=== PATIENT | male | born 1970 | race Caucasian/White ===

== ENCOUNTER → 2019-10-01 13:31 | Outpatient (CLI) | payer OTHER, SELFPAY ==
[2019-10-01 13:40] LABS: Basophils % 0.6 % (0.1-2.0); Eosinophils # 0.2 K/mm3 (0.0-0.4); Eosinophils % 2.5 % (0.1-12.0); Hemoglobin 15.2 g/dL (14.1-18.0); Lymphocytes # 1.5 K/mm3 (0.7-4.5); Lymphocytes % 23.3 % (10-50); Mean Corpuscular HGB Conc 34.5 g/dL (31.8-35.4); Mean Corpuscular Hemoglobin 32.6 pg (27.0-31.2); Mean Corpuscular Volume 94.5 fl (80-94); Mean Platelet Volume 8.8 fl (7.4-10.4); Monocytes # 0.5 K/mm3 (0.1-1.0); Monocytes % 7.7 % (1.7-9.3); Neutrophils # 4.3 K/mm3 (1.8-7.8); Neutrophils % 65.9 % (37.0-80.0); Platelet Count 444 K/mm3 (142-424); Red Blood Count 4.66 M/mm3 (4.60-6.20); Red Cell Distribution Width 13.5 % (11.5-17.5); White Blood Count 6.6 K/mm3 (4.8-10.8)
[2019-10-01 13:51] LABS: Alanine Aminotransferase 28 U/L (12-78); Albumin Level 4.7 g/dl (3.5-5.0); Albumin/Globulin Ratio 1.7 (1.1-1.8); Alkaline Phosphatase 84 U/L (38-126); Anion Gap 18.8 mEq/L (5-15); Aspartate Amino Transferase 31 U/L (17-59); Bilirubin,Total 0.8 mg/dl (0.2-1.3); Blood Urea Nitrogen 12 mg/dl (9-20); Calcium 9.6 mg/dl (8.4-10.2); Carbon Dioxide 26 mmol/L (22.0-30.0); Chloride 100 mmol/L (98-107); Estimated Glomerular Filt Rate 79 ml/min (>60); GFR (African American) 96 ML/MIN (>60); Globulin 2.7 g/dL (1.3-3.2); Glucose 160 mg/dl (74-100); Potassium 3.8 mmoL/L (3.5-5.1); Sodium 141 mmol/L (136-145); Total Protein,Serum 7.4 g/dl (6.3-8.2)
[2019-10-01 20:49] LABS: T4 (Thyroxine) 6.5 ug/dl (5.53-11.0)
[2019-10-01 21:03] LABS: Thyroid Stimulating Hormone 1.11 uIU/mL (0.465-4.68)
[2019-10-02 11:12] LABS: Chol/HDL Ratio 4.3 (1-3.5); Cholesterol 191 mg/dl (140-200); HDL Cholesterol 44 mg/dl (40-60); Triglycerides 153 mg/dl (30-150); VLDL Cholesterol 31 mg/dL (0-40)
[2019-10-02 11:19] LABS: Hemoglobin A1C 5.6 % (4.0-6.0)
[2019-10-02 11:23] LABS: Direct LDL Cholesterol 118.34 mg/dL (100-129)
[2019-10-06 09:20] LABS: 1,25 Dihydroxy Vitamin D 68 pg/mL (.); 1,25-Dihydroxy, Vitamin D-2 16 pg/mL (.); 1,25-Dihydroxy, Vitamin D-3 52 pg/mL (.)
== END ==
PROVIDERS: Visit Provider Physician Assistant
DX: R53.83 Other fatigue; E78.5 Hyperlipidemia, unspecified; R73.09 Other abnormal glucose; M25.571 Pain in right ankle and joints of right foot; E67.3 Hypervitaminosis D
CPT/HCPCS: 80053; 80061; 82652; 83036; 84436; 84443; 85025

== ENCOUNTER → 2019-11-26 11:48 | Outpatient (CLI) | payer OTHER, SELFPAY ==
--- NOTE | 2019-11-26 11:54 | XR_ITS ---
PROCEDURE: XR RIBS RT MIN 3V W CXR1V CLINICAL INDICATION: right rib pain Posttraumatic pain COMPARISON: No exams were available for comparison FINDINGS: Frontal view of the chest shows no acute finding. Multiple views of the right ribs are obtained. There is a nondisplaced fracture involving the anterolateral aspect of the right 9th rib. No evidence of pneumothorax. No hemothorax apparent. There is some mild atelectatic change in the left lower lobe. IMPRESSION: Nondisplaced right 9th rib fracture Dictated by: Cruz Hill MD 11/26/2019 12:53 Crzu Hill MD in [facility] 11/26/2019 12:53
== END ==
PROVIDERS: PCP Emergency Medicine; Visit Provider Physician Assistant
DX: R07.81 Pleurodynia (principal)
CPT/HCPCS: 71101

== ENCOUNTER → 2020-03-25 13:57 | Outpatient (CLI) | payer MEDICARE, OTHER, SELFPAY ==
--- NOTE | 2020-03-25 14:01 | XR_ITS ---
PROCEDURE: XR ELBOW LT MIN 3V CLINICAL INDICATION: left elbow pain COMPARISON: No exams were available for comparison FINDINGS: No fracture or dislocation. No lytic or blastic change. There is normal mineralization. The joint spaces are well-preserved. No significant degenerative/arthritic changes. No erosive changes evident. Other findings:None. IMPRESSION: No acute findings. Dictated by: Cruz Hill MD 03/25/2020 14:35 Cruz Hill MD in [facility] 03/25/2020 14:35
== END ==
PROVIDERS: PCP Physician Assistant; Visit Provider Physician Assistant
DX: M25.522 Pain in left elbow (principal)
CPT/HCPCS: 73080

== ENCOUNTER → 2020-10-08 18:03 | Outpatient (CLI) | payer MEDICARE, OTHER, SELFPAY ==
[2020-10-08 19:18] LABS: Basophils # 0.1 K/mm3 (0-0.2); Basophils % 0.7 % (0.1-2.0); Eosinophils # 0.2 K/mm3 (0.0-0.4); Eosinophils % 2.1 % (0.1-12.0); Hematocrit 38.6 % (42.0-52.0); Hemoglobin 12.4 g/dL (14.1-18.0); Lymphocytes # 2.1 K/mm3 (0.7-4.5); Lymphocytes % 26.8 % (10-50); Mean Corpuscular HGB Conc 32.1 g/dL (31.8-35.4); Mean Corpuscular Hemoglobin 31.4 pg (27.0-31.2); Mean Corpuscular Volume 97.8 fl (80-94); Mean Platelet Volume 8.3 fl (7.4-10.4); Monocytes # 0.6 K/mm3 (0.1-1.0); Monocytes % 7.4 % (1.7-9.3); Neutrophils # 4.9 K/mm3 (1.8-7.8); Neutrophils % 63.1 % (37.0-80.0); Platelet Count 496 K/mm3 (142-424); Red Blood Count 3.95 M/mm3 (4.60-6.20); Red Cell Distribution Width 14.7 % (11.5-17.5); White Blood Count 7.7 K/mm3 (4.8-10.8)
[2020-10-08 19:27] LABS: Alanine Aminotransferase 22 U/L (12-78); Albumin Level 4.3 g/dl (3.5-5.0); Albumin/Globulin Ratio 1.7 (1.1-1.8); Alkaline Phosphatase 75 U/L (38-126); Anion Gap 14.6 mEq/L (5-15); Aspartate Amino Transferase 26 U/L (17-59); Bilirubin,Total 0.5 mg/dl (0.2-1.3); Blood Urea Nitrogen 18 mg/dl (9-20); Calcium 9.2 mg/dl (8.4-10.2); Carbon Dioxide 29 mmol/L (22.0-30.0); Chloride 103 mmol/L (98-107); Estimated Glomerular Filt Rate 58 ml/min (>60); GFR (African American) 71 ML/MIN (>60); Globulin 2.5 g/dL (1.3-3.2); Glucose 96 mg/dl (74-100); Potassium 4.6 mmoL/L (3.5-5.1); Sodium 142 mmol/L (136-145); Total Protein,Serum 6.8 g/dl (6.3-8.2)
[2020-10-08 21:05] LABS: Prostate Specific Ag Screen 1.2 ng/ml (0.0-4.0)
[2020-10-10 18:43] LABS: Peripheral Smear Review Scanned Result
== END ==
PROVIDERS: Visit Provider Physician Assistant
DX: R79.89 Other specified abnormal findings of blood chemistry (principal); R30.0 Dysuria; Z12.5 Encounter for screening for malignant neoplasm of prostate
CPT/HCPCS: 80053; 85025; 87086; G0103

== ENCOUNTER → 2020-10-27 17:56 | Outpatient (CLI) | payer MEDICARE, OTHER, SELFPAY ==
[2020-10-27 18:57] LABS: Chloride 103 mmol/L (98-107); Sodium 140 mmol/L (136-145)
[2020-10-27 18:58] LABS: Potassium 3.5 mmoL/L (3.5-5.1)
[2020-10-27 19:01] LABS: Anion Gap 13.5 mEq/L (5-15); Blood Urea Nitrogen 14 mg/dl (9-20); Calcium 9.2 mg/dl (8.4-10.2); Carbon Dioxide 27 mmol/L (22.0-30.0); Estimated Glomerular Filt Rate 64 ml/min (>60); GFR (African American) 78 ML/MIN (>60); Glucose 202 mg/dl (74-100)
[2020-10-27 20:34] LABS: Vitamin B12 262 pg/mL (239-931)
[2020-10-27 20:46] LABS: Folate 9.58 ng/mL
== END ==
PROVIDERS: Visit Provider Physician Assistant
DX: R53.83 Other fatigue (principal); R79.89 Other specified abnormal findings of blood chemistry
CPT/HCPCS: 80048; 82607; 82746

== ENCOUNTER → 2020-11-04 07:36 | Outpatient (CLI) | payer OTHER, SELFPAY ==
--- NOTE | 2020-11-04 07:39 | CT_ITS ---
PROCEDURE: CT ABDOMEN PELVIS WO CON CLINICAL INDICATION: left groin pain Llq pain x several weeks COMPARISON: No exams were available for comparison TECHNIQUE: Axial images obtained with sagittal and coronal reformats. All CT scans at the facility use one or more dose reduction, viz: automated exposure control, ma/kV adjustment per patient size (including targeted exams where dose is matched to indication, i.e. head), or iterative reconstruction technique. FINDINGS: LOWER THORAX: No acute finding ABDOMEN & PELVIS: The liver, spleen, adrenal glands, pancreas, and kidneys have an unremarkable unenhanced CT appearance. No renal or ureteral calculi. No hydronephrosis. No radiopaque gallstones. Solid organ evaluation is limited without IV contrast. No intestinal obstruction or free air. Unremarkable appendix. No pelvic mass or inflammatory change apparent. No evidence diverticulitis. There is a small right inguinal hernia containing fat. There is a small area of increased soft tissue density in the left inguinal area deep to the inguinal canal and may be due to postsurgical changes from prior hernia repair. Please correlate with surgical history. No evidence of left inguinal hernia. There is a tiny umbilical hernia containing fat. Postsurgical changes are present at L3-L4 and L5. IMPRESSION: 1. No acute finding. 2. Small area of increased soft tissue density in the left inguinal region which may be due to postsurgical changes from prior hernia repair. Please correlate with surgical history. 3. Small right inguinal hernia and small umbilical hernia containing fat. 4. Multiple unopacified bowel loops in the abdomen or pelvis which could obscure or mimic pathology. If symptoms persist, consider repeat exam with IV and oral contrast.. Solid organ evaluation limited without IV contrast. Dictated by: Cruz Hill MD 11/05/2020 08:04 Cruz Hill MD in [facility] 11/05/2020 08:04
== END ==
PROVIDERS: PCP Physician Assistant; Visit Provider Physician Assistant
DX: R10.32 Left lower quadrant pain (principal)
CPT/HCPCS: 74176

== ENCOUNTER → 2020-12-24 17:24 | Outpatient (CLI) | payer OTHER, SELFPAY ==
[2020-12-24 18:59] LABS: Basophils % 0.5 % (0.1-2.0); Eosinophils # 0.1 K/mm3 (0.0-0.4); Eosinophils % 1.2 % (0.1-12.0); Hemoglobin 14.7 g/dL (14.1-18.0); Lymphocytes # 1.3 K/mm3 (0.7-4.5); Lymphocytes % 19.5 % (10-50); Mean Corpuscular Hemoglobin 31.8 pg (27.0-31.2); Mean Corpuscular Volume 99.5 fl (80-94); Mean Platelet Volume 7.9 fl (7.4-10.4); Monocytes # 0.4 K/mm3 (0.1-1.0); Monocytes % 5.9 % (1.7-9.3); Neutrophils # 4.9 K/mm3 (1.8-7.8); Neutrophils % 72.8 % (37.0-80.0); Platelet Count 421 K/mm3 (142-424); Red Blood Count 4.62 M/mm3 (4.60-6.20); Red Cell Distribution Width 12.4 % (11.5-17.5); White Blood Count 6.8 K/mm3 (4.8-10.8)
[2020-12-24 19:36] LABS: Alanine Aminotransferase 25 U/L (12-78); Albumin Level 4.3 g/dl (3.5-5.0); Albumin/Globulin Ratio 1.5 (1.1-1.8); Alkaline Phosphatase 78 U/L (38-126); Anion Gap 13.2 mEq/L (5-15); Aspartate Amino Transferase 27 U/L (17-59); Bilirubin,Total 0.5 mg/dl (0.2-1.3); Blood Urea Nitrogen 15 mg/dl (9-20); Calcium 9.4 mg/dl (8.4-10.2); Carbon Dioxide 31 mmol/L (22.0-30.0); Chloride 99 mmol/L (98-107); Chol/HDL Ratio 3.4 (1-3.5); Cholesterol 181 mg/dl (140-200); Estimated Glomerular Filt Rate 54 ml/min (>60); GFR (African American) 65 ML/MIN (>60); Globulin 2.8 g/dL (1.3-3.2); Glucose 102 mg/dl (74-100); HDL Cholesterol 54 mg/dl (40-60); Potassium 4.2 mmoL/L (3.5-5.1); Sodium 139 mmol/L (136-145); Total Protein,Serum 7.1 g/dl (6.3-8.2); Triglycerides 150 mg/dl (30-150); VLDL Cholesterol 30 mg/dL (0-40)
[2020-12-24 19:48] LABS: Direct LDL Cholesterol 94.16 mg/dL (100-129)
[2020-12-24 19:54] LABS: Free T4 (Free Thyroxine) 0.85 ng/dl (0.78-2.19)
[2020-12-24 20:08] LABS: Thyroid Stimulating Hormone 1.32 uIU/mL (0.465-4.68)
[2020-12-24 20:26] LABS: Vitamin B12 342 pg/mL (239-931)
[2020-12-24 20:39] LABS: Hemoglobin A1C 5.7 % (4.0-6.0)
== END ==
PROVIDERS: Visit Provider Physician Assistant
DX: E78.5 Hyperlipidemia, unspecified (principal); R53.83 Other fatigue; E53.8 Deficiency of other specified B group vitamins; R73.09 Other abnormal glucose
CPT/HCPCS: 80053; 80061; 82306; 82607; 83036; 84439; 84443; 85025

== ENCOUNTER 2021-06-13 23:03 | Emergency (ER) | payer MEDICARE, OTHER, SELFPAY ==
[2021-06-13 23:05] VITALS: BP 164/90; PULSE 100; RESP 18; TEMP 37.2; O2SAT 99; BMI 27.0
--- NOTE | 2021-06-13 23:17 | [facility].EDMCLR ---
ED Disposition Clinical Impression: Medical clearance for incarceration Disposition: Home, Self-Care Condition on Discharge: Good Instructions: DI for Substance Use Disorder Additional Instructions: see pcp for follow up Referrals: Cristy Stanley PA [Primary Care Provider] - - Critical Care Critical Care Time: No Attestation: On 06/13/21, the high probability of a clinically significant, sudden or life threatening deterioration of the following system(s) required my full and direct attention, intervention and personal management. The time I documented below is in addition to time spent performing reported procedures but includes the following listed in this critical care notation. Medical Decision Making - Medical Records Medical records reviewed: Yes: I reviewed the patient's medical records. - Matty Inquiry Pt receiving controlled substance: No Vital Signs: 06/13/21 23:05 Temperature 99.0 F Temperature Source Oral Pulse Rate [Right] 100 H Respiratory Rate 18 Blood Pressure [Right Arm] 164/90 H Blood Pressure Mean [Right Arm] 114 02 Sat by Pulse Oximetry 99 Medical Decision Narrative: stable exam at this time Medical Clearance HPI - General Chief complaint: Medical Clearance Stated complaint: medical clearance Time Seen by Provider: 06/13/21 23:18 Mode of Arrival: Ambulatory Source of Information: Patient, Medical Record Limitations: No Limitations Description of Symptoms (Recalled from ER Triage Doc. 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 - pt w/o specific c/o complaint: medical clearance requested Onset (ago): hour(s) Reason for Medical Clearance: intoxication Place: home Alleged Intoxication: Yes Traumatic Symptoms: denies traumatic injury Associated Symptoms: denies other symptoms Treatments Prior to Arrival: none Home medications: Home Medications Medication Instructions Recorded Confirmed naltrexone microspheres 380 mg 380 mg IM QMONTH 10/08/20 12/24/20 intramuscular suspension,extended release Previous Rx's Medication Instructions Recorded loratadine 10 mg tablet 10 mg PO DAILY #90 tab 10/08/20 finasteride 5 mg tablet 5 mg PO DAILY #30 tab 10/20/20 fluticasone propionate 50 1 spray INTRANASAL QDAY 30 Days 12/24/20 mcg/actuation nasal #9.9 g spray,suspension montelukast 10 mg tablet 10 mg PO QDAY 90 Days #90 tab 12/24/20 Allergies/Adverse reactions: Allergies Allergy/AdvReac Type Severity Reaction Status Date / Time diclofenac [DICLOFENAC] Allergy Unknown Verified 12/24/20 15:17 Penicillins [PENICILLINS] Allergy Unknown Verified 12/24/20 15:17 propoxyphene [PROPOXYPHENE] Allergy Unknown Verified 12/24/20 15:17 tramadol [TRAMADOL] Allergy Unknown Verified 12/24/20 15:17 [facility] History - Hepatitis A Screen Drug use history?: Yes High risk sexual behaviors?: No History of sexually transmitted infection?: No Currently employed?: No Childcare worker?: No Do you have indoor plumbing?: Yes Do you have electricity?: Yes Attestation statement:: This patient has been screened for Hepatitis A risk factors. I have reviewed the patient's past medical history: Yes Medical History: Reports:: Hyperlipidemia Laterality Cases: Left: Arthroscopy Knee Other Surgeries: Yes: Hernia Repair, Other Amputation: No Fractures: No Comment: Reece in back - Social History Smoking Status: Light tobacco smoker Tobacco Type: smokeless tobacco Alcohol Intake: never Substance Use Type: former substance user, heroin Occupational Status: unemployed Family Hx:: No significant family history ROS Obtained: Yes All systems reviewed & no additional complaints - Constitutional Constitutional: Denies fever(s) - Eyes Eyes: Denies change in vision - ENT Ears, Nose, Mouth, and Throat: Denies sore throat - Cardiovascular Cardiovascular: Denies ches
[2021-06-13 23:24] VITALS: BP 160/80; PULSE 100; RESP 20; TEMP 36.8; O2SAT 99
== END 2021-06-13 23:26 | disposition home or self-care (01) ==
PROVIDERS: Emergency Provider Emergency Medicine; PCP Physician Assistant
DX: S86.001A Unspecified injury of right Achilles tendon, initial encounter (principal); E78.5 Hyperlipidemia, unspecified; N40.0 Benign prostatic hyperplasia without lower urinary tract symptoms; J30.9 Allergic rhinitis, unspecified; E53.8 Deficiency of other specified B group vitamins; G47.00 Insomnia, unspecified; F17.290 Nicotine dependence, other tobacco product, uncomplicated; Z79.51 Long term (current) use of inhaled steroids; Z79.899 Other long term (current) drug therapy; Z88.0 Allergy status to penicillin; Z88.6 Allergy status to analgesic agent; Z88.8 Allergy status to other drugs, medicaments and biological substances
CPT/HCPCS: 99283

== ENCOUNTER → 2021-07-22 12:14 | Outpatient (CLI) | payer SELFPAY ==
[2021-07-22 18:36] LABS: Basophils # 0.1 K/mm3 (0-0.2); Basophils % 0.8 % (0.1-2.0); Eosinophils # 0.1 K/mm3 (0.0-0.4); Eosinophils % 1.2 % (0.1-12.0); Hematocrit 46.5 % (42.0-52.0); Lymphocytes # 1.7 K/mm3 (0.7-4.5); Lymphocytes % 28.5 % (10-50); Mean Corpuscular HGB Conc 32.3 g/dL (31.8-35.4); Mean Corpuscular Hemoglobin 32.2 pg (27.0-31.2); Mean Corpuscular Volume 99.6 fl (80-94); Monocytes # 0.4 K/mm3 (0.1-1.0); Monocytes % 6.4 % (1.7-9.3); Neutrophils # 3.8 K/mm3 (1.8-7.8); Neutrophils % 63.1 % (37.0-80.0); Platelet Count 475 K/mm3 (142-424); Red Blood Count 4.67 M/mm3 (4.60-6.20); Red Cell Distribution Width 13.5 % (11.5-17.5)
[2021-07-22 18:43] LABS: Alanine Aminotransferase 23 U/L (12-78); Albumin Level 4.5 g/dl (3.5-5.0); Albumin/Globulin Ratio 1.7 (1.1-1.8); Alkaline Phosphatase 70 U/L (38-126); Anion Gap 12.2 mEq/L (5-15); Aspartate Amino Transferase 29 U/L (17-59); Bilirubin,Total 0.6 mg/dl (0.2-1.3); Blood Urea Nitrogen 11 mg/dl (9-20); Calcium 9.1 mg/dl (8.4-10.2); Carbon Dioxide 29 mmol/L (22.0-30.0); Chloride 102 mmol/L (98-107); Chol/HDL Ratio 3.6 (1-3.5); Cholesterol 210 mg/dl (140-200); Estimated Glomerular Filt Rate 64 ml/min (>60); GFR (African American) 77 ML/MIN (>60); Globulin 2.6 g/dL (1.3-3.2); Glucose 105 mg/dl (74-100); HDL Cholesterol 58 mg/dl (40-60); Potassium 4.2 mmoL/L (3.5-5.1); Sodium 139 mmol/L (136-145); Total Protein,Serum 7.1 g/dl (6.3-8.2); Triglycerides 65 mg/dl (30-150); VLDL Cholesterol 13 mg/dL (0-40)
[2021-07-22 18:54] LABS: Direct LDL Cholesterol 114.09 mg/dL (100-129)
[2021-07-22 19:01] LABS: 25-OH Vitamin D, Total 20.3 ng/mL (30-100)
[2021-07-22 19:08] LABS: Hemoglobin A1C 5.6 % (4.0-6.0)
[2021-07-22 19:15] LABS: Thyroid Stimulating Hormone 1.15 uIU/mL (0.465-4.68)
== END ==
PROVIDERS: PCP Physician Assistant; Visit Provider Physician Assistant
DX: Z00.00 Encounter for general adult medical examination without abnormal findings (principal); M54.50 Low back pain, unspecified; E55.9 Vitamin D deficiency, unspecified; Z79.899 Other long term (current) drug therapy
CPT/HCPCS: 80053; 80061; 82306; 82607; 82746; 83036; 84443; 85025; 87086

== ENCOUNTER 2024-03-25 18:47 | Inpatient (IN) | payer MEDICARE, SELFPAY ==
[2024-03-25 18:47] VITALS: BP 136/96; PULSE 128; RESP 26; TEMP 37.2; O2SAT 97; BMI 23.5
--- NOTE | 2024-03-25 18:48 | XR_ITS ---
PROCEDURE INFORMATION: Exam: XR Chest Exam date and time: 03/25/2024 6:46 PM Age: 53 years old Clinical indication: Shortness of breath; Additional info: SOA, resp failure TECHNIQUE: Imaging protocol: Radiologic exam of the chest. Views: 1 view. COMPARISON: CR XR RIBS RT MIN 3V W CXR1V 11/26/2019 12:10 PM FINDINGS: Lungs: Pleural-based mass versus infiltrate in the lingula. Consider CT chest for further characterization. Pleural spaces: Unremarkable. No pleural effusion. No pneumothorax. Heart/Mediastinum: Unremarkable. No cardiomegaly. Bones/joints: Unremarkable. IMPRESSION: Pleural-based mass versus infiltrate in the lingula. Consider CT chest for further characterization.
--- NOTE | 2024-03-25 18:55 | ECG_ITS ---
APPROVED REPORT Exam: Resting ECG HR:127 bpm ECG Measurements Heart Rate 127 AXES NC 154 P 67 QRSd 97 QRS 143 QT 399 T 64 QTc 474 Conclusion SINUS TACHYCARDIA POSSIBLE RIGHT VENTRICULAR HYPERTROPHY [SOME/ALL OF: PROMINENT R IN V1, LATE TRANSITION, RAD, BOB, SSS] ANTEROLATERAL MYOCARDIAL INFARCTION , OF INDETERMINATE AGE [40+ ms Q WAVE IN I/aVL/V3-V6] Electronically signed by : JOSE CARLOS NORTON, 03/25/2024 23:45:57
--- NOTE | 2024-03-25 19:01 | ED_ITS ---
Discharge Plan Disposition Patient Disposition: Admitted Condition: Critical Clinical Impressions Clinical Impression: Anasarca, Acute hypoxemic respiratory failure, Acute decompensated heart failure, LV (left ventricular) mural thrombus, Transaminitis, RENAY (acute kidney injury) Discharge ED Provider: Carmen Zhu General Adult HPI General Chief complaint: Abdominal Pain Stated complaint: Edema Time Seen by Provider: 03/25/24 18:48 Mode of Arrival: EMS Source of Information: Patient and EMS Limitations: No Limitations Description of Symptoms (Recalled from ER Triage Doc. by RN): edema all over body,short of breath,jaundice History of Present Illness HPI narrative: This patient is a 53-year-old male who denies any significant past medical history aside from prior back surgery presenting to the emergency department for evaluation with concern for swelling and shortness of breath. Patient states that he is swollen all over. He notes symptoms been progressively worsening and he has been self treating with [id number] fluid pills for 2 weeks. He notes his PCP moved and he has not established with anyone else. He notes significant swelling and shortness of breath but denies any other concerns or complaints. No complaints of pain anywhere. No fevers, nausea, vomiting, or other concerns. He denies any history of alcohol or drug use. He arrives by EMS who notes that he was hypoxic requiring 3 L nasal cannula. They administered 324 mg of aspirin as well as nitro spray. Related Data Previous Rx's ?Medication ?Instructions ?Recorded loratadine 10 mg tablet (Allergy 10 mg PO DAILY #90 tabs 10/08/20 Relief (loratadine)) finasteride 5 mg tablet (Proscar) 5 mg PO DAILY #30 tabs 10/20/20 fluticasone propionate 50 1 spray intranasal QDAY 30 days 12/24/20 mcg/actuation nasal #9.9 grams spray,suspension (Flonase Allergy Relief) montelukast 10 mg tablet 10 mg PO QDAY 90 days #90 tabs 12/24/20 (Singulair) cyclobenzaprine 10 mg tablet 10 mg PO Q8H PRN muscle spasm #30 07/22/21 tabs lidocaine 5 % topical patch 1 patch topical DAILY #30 ea 07/22/21 (Lidoderm) naproxen 500 mg tablet,delayed 500 mg PO BID #20 tabs 07/22/21 release (EC-Naproxen) cholecalciferol (vitamin D3) 25 25 mcg PO DAILY #90 caps 07/24/21 mcg (1,000 unit) capsule ergocalciferol (vitamin D2) 1,250 1,250 mcg PO WEEKLY #14 caps 07/24/21 mcg (50,000 unit) capsule Allergies Allergy/AdvReac Type Severity Reaction Status Date / Time diclofenac (DICLOFENAC) Allergy Unknown Verified 08/12/21 13:08 Penicillins (PENICILLINS) Allergy Unknown Verified 08/12/21 13:08 propoxyphene (PROPOXYPHENE) Allergy Unknown Verified 08/12/21 13:08 tramadol (TRAMADOL) Allergy Unknown Verified 08/12/21 13:08 PFSH [facility] Disclaimer: The information contained in this section may have been updated after the patient was seen, as this information can be updated by other users. Medical History Vitamin B12 deficiency Allergic rhinitis BPH (benign prostatic hyperplasia) Hyperlipidemia Insomnia Partial tear of right Achilles tendon Social History Smoking Status: Never smoker alcohol intake: never substance use type: former substance user and heroin current occupational status: unemployed Travel in the last 8 weeks: None Have you lived/traveled outside [place] in past 30 days?: No Contact w/someone who lives/traveled outside US past 30 days?: No Exposure to someone with infectious disease in past 14 days?: No Do you have a fever (greater than 100.4 F or 38 C)?: No Have you tested positive for COVID-19: No Exposed to someone with COVID-19 in past 14 days?: No Do you have a sore throat?: No Do you have a cough?: No Do you have any weakness?: No Do you have any diarrhea?: No Are you experiencing any unusual bleeding?: No Do you have any muscle aches/pain?: No Do you have any abdominal pain?: No Are you experiencing loss of taste or smell?: No Other Medical History Have you received the Flu Vaccine for this season: No Have you received the Pneumonia Vaccine: No ROS Obtained: Yes All systems reviewed & no additional complaints except as documented Physical Exam General General appearance: alert and in distress Comment: Ill-appearing with anasarca Head Head exam: atraumatic and normocephalic Eye Eye exam: Present normal appearance, PERRL and EOMI ENT ENT exam: Present normal exam, normal oropharynx, mucous membranes moist and normal external ear exam Neck Neck exam: Present normal inspection, full ROM and trachea midline; Absent tenderness Chest Chest inspection: Present normal inspection and symmetric chest wall rise; Absent tenderness Respiratory Respiratory exam: Present respiratory distress, wheezes, accessory muscle use and other (Wheezes and crackles); Absent stridor Cardiovascular Cardiovascular exam: Present normal rhythm and tachycardia Abdominal Exam Abdominal exam: Present soft and tenderness (Upper abdomen, especially right upper quadrant); Absent distention or guarding Comment: Abdominal wall edema Extremities Exam Extremities exam: Present full ROM, normal capillary refill and edema (Anasarca); Absent tenderness Back Exam Back exam: Present normal inspection and full ROM; Absent tenderness Neurological Exam Neurological exam: Present alert, oriented X3, CN II-XII intact and normal gait; Absent motor sensory deficit Psychiatric Psychiatric exam: Present normal affect and normal mood Skin Skin exam: Present warm and dry Medical Decision Making Medical Records Medical records reviewed: Yes I reviewed the patient's medical records. Screening: Per USPSTF and CDC recommendations, given the prevalence of disease in our region, it is our hospital?s policy to screen for HIV and viral Hepatitis for all patients aged 18 and over and those with ongoing risk factors. Matty Inquiry Pt receiving controlled substance: No Vital Signs: 03/25/24 18:47 Temperature 99 F Temperature Source Oral Pulse Rate [Right] 128 H Respiratory Rate 26 H Blood Pressure [Right Arm] 136/96 H Blood Pressure Mean [Right Arm] 109 02 Sat by Pulse Oximetry 97 Oxygen Delivery Method Nasal Cannula Oxygen Flow Rate (LPM) 3 Lab Data Lab results reviewed: Yes I reviewed the patient's lab results. Lab Results 03/25/24 19:05: WBC 10.2, RBC 5.04, Hgb 14.9, Hct 47.5, MCV 94.3 H, MCH 29.6, M CHC 31.4 L, RDW 14.3, Plt Count 166, MPV 9.2, Neut % (Auto) 75.7, Lymph % (Auto) 12.2, [place] % (Auto) 9.8 H, Eos % (Auto) 1.7, Baso % (Auto) 0.5, Neut # (Auto) 7.7, Lymph # (Auto) 1.3, [place] # (Auto) 1.0, Eos # (Auto) 0.2, Baso # (Auto) 0.1, PT 15.6 H, INR 1.44 H, APTT 29.6, D-Dimer 4.78 H, Sodium 132 L, Potassium 4.6, Chloride 98, Carbon Dioxide 25, Anion Gap 13.6, BUN 31 H, Creatinine 1.80 H, Estimated Creat Clear 46, Estimated GFR 40 L, Est GFR ( Amer) 48 L, G lucose 129 H, Lactate 3.4 H, Calcium 9.5, Phosphorus 4.0, Magnesium 1.9, Total Bilirubin 3.1 H, AST 416 H*, ALT 1078 H*, Alkaline Phosphatase 229 H, Troponin I 0.36 H, C-Reactive Protein 61.5 H, NT-Pro-B Natriuret Pep 7840 H, Total Protein 6.3, Albumin 3.6, Globulin 2.7, Albumin/Globulin Ratio 1.3, Lipase 270, Procalcitonin 0.406, TSH 4.60, Thyroxine (T4) 7.2, Plasma/Serum Alcohol < 10 03/25/24 19:12: VBG pH 7.35, VBG pCO2 45.1, VBG pO2 31.0, VBG HCO3 24.3, VBG Total CO2 25.7, VBG O2 Saturation 53.9, VBG Base Excess -1.3, VBG Lactic Acid 4.2 H 03/25/24 19:17: SARS-CoV-2 (PCR) Not detected, Influenza A Untype (PCR) Not detected, Influenza Type B (PCR) Not detected 03/25/24 20:21: VBG pH 7.36, VBG pCO2 40.9, VBG pO2 42.7 H, VBG HCO3 22.6 L, VBG Total CO2 23.8, VBG O2 Saturation 75.5 H, VBG Base Excess -2.9 L, VBG Lactic Acid 3.3 H 03/25/24 21:40: Urine Color Yellow, Urine Appearance Clear, Urine pH 5.5, Ur Specific [place] 1.025, Urine Protein 2+ A, Urine Glucose (UA) Negative, Urine Ketones Negative, Urine Blood 1+ A, Urine Nitrate Negative, Urine Bilirubin 1+ A , Urine Urobilinogen 1.0, Ur Leukocyte Esterase Negative, Urine RBC 3-5, Urine WBC 3-5, Ur Squamous Epith Cells None, Urine Bacteria Trace 03/25/24 19:05 03/25/24 19:05 Orders (Tests/Meds): ED MEDICATIONS Generic Name Dose Route Start Last Admin Trade Name Freq PRN Reason Stop Dose Admin Acetaminophen 650 mg 03/25/24 23:00 Acetaminophen 325mg Tab PO 04/24/24 22:59 Q4HP PRN Fever or Mild Pain (1-3) Al Hydrox/Mg Hydrox/Simethicone 30 ml 03/25/24 23:00 Aluminum/Magnesium/Simethicone 30ml Udc PO 04/24/24 22:59 QIDP PRN Dyspepsia Hydralazine HCl 10 mg 03/25/24 23:22 Hydralazine 20mg/Ml Vial IM 04/24/24 23:21 Q6HP PRN hypertension Milrinone Lactate 20 mg/ 100 mls @ 2.551 mls/hr 03/25/24 19:54 03/25/24 21:14 Sodium Chloride IV 04/24/24 19:53 0.125 mcg/kg/min .Q24H NOVA 2.55 mls/hr Administration Protocol 0.125 MCG/KG/MIN Heparin Sodium/Dextrose 500 mls @ 24 mls/hr 03/25/24 20:30 03/25/24 20:33 Heparin 25,000 Units In D5w 500ml Premix IV 04/24/24 20:29 24 mls/hr .[id number] NOVA Administration 1,200 UNITS/HR Bumetanide 10 mg/ Sodium 100 mls @ 5 mls/hr 03/25/24 20:21 03/25/24 20:29 Chloride IV 04/24/24 20:20 5 mls/hr .Q20H NOVA Administration Cefepime HCl 1 gm/ Sodium 50 mls @ 100 mls/hr 03/25/24 23:15 Chloride IV 04/01/24 23:14 Q12H NOVA Miscellaneous 1 each 03/25/24 22:45 Vancomycin Consult Request NOTAPPLIC 04/24/24 19:29 CONSULT PHARMACY [facility] Miscellaneous 1 each 03/25/24 23:15 Vancomycin Consult Request NOTAPPLIC 04/24/24 23:14 CONSULT PHARMACY [facility] Morphine Sulfate 2 mg 03/25/24 23:00 Morphine 2mg/Ml Syringe IV 04/24/24 22:59 Q6HP PRN Severe Pain (7-10) Ondansetron HCl 4 mg 03/25/24 23:00 Ondansetron 4mg/2ml Vial IV 04/24/24 22:59 Q8HP PRN Nausea Sodium Chloride 10 ml 03/25/24 20:50 03/25/24 20:51 Sodium Chloride 0.9% 10ml Syr (Rad Only) IV 04/24/24 20:49 10 ml NEEDED PRN Administration Maintain IV Site Discontinued Medications Generic Name Dose Route Start Last Admin Trade Name Freq PRN Reason Stop Dose Admin Acetaminophen 1,000 mg 03/25/24 19:12 03/25/24 19:12 Acetaminophen 1,000mg/100ml Vial IV 03/25/24 19:13 1,000 mg ONCE ONE Administration Acetaminophen 650 mg 03/25/24 21:58 Acetaminophen 325mg Tab PO 04/24/24 21:57 Q4HP PRN Fever or Mild Pain (1-3) Acetaminophen 650 mg 03/25/24 23:02 Acetaminophen 325mg Tab PO 04/24/24 21:57 Q4HP PRN Fever or Mild Pain (1-3) Al Hydrox/Mg Hydrox/Simethicone 30 ml 03/25/24 21:58 Aluminum/Magnesium/Simethicone 30ml Udc PO 04/24/24 21:57 QIDP PRN Dyspepsia Al Hydrox/Mg Hydrox/Simethicone 30 ml 03/25/24 23:02 Aluminum/Magnesium/Simethicone 30ml Udc PO 04/24/24 21:57 QIDP PRN Dyspepsia Bumetanide 4 mg 03/25/24 19:36 03/25/24 20:23 Bumetanide 1mg/4ml Vial IV 03/25/24 19:37 4 mg ONCE ONE Administration Heparin Sodium (Porcine) 5,500 unit 03/25/24 20:30 03/25/24 20:26 Heparin Sodium 5,000 Unit/Ml Vial IV 03/25/24 20:31 5,500 unit ONCE ONE Administration Cefepime HCl 2 gm/ Sodium 100 mls @ 200 mls/hr 03/25/24 19:23 03/25/24 19:55 Chloride IV 03/25/24 19:52 200 mls/hr ONCE ONE Administration Azithromycin 500 mg/ Sodium 250 mls @ 250 mls/hr 03/25/24 19:24 03/25/24 20:15 Chloride IV 03/25/24 19:25 250 mls/hr ONCE ONE Administration Vancomycin/PEG/NADA/Lysine/Water 1.5 gm in 300 mls @ 150 mls/hr 03/25/24 19:45 Vancomycin 1.5gm/300ml (Peg) Premix IV 03/25/24 21:44 ONCE ONE Iopamidol 70 ml 03/25/24 20:50 03/25/24 20:51 Iopamidol-370 (76%);100ml Bottle IV 03/25/24 20:51 70 ml ONCE ONE Administration Miscellaneous 1 each 03/25/24 19:30 Vancomycin Consult Request NOTAPPLIC 04/24/24 19:29 CONSULT PHARMACY [facility] Morphine Sulfate 2 mg 03/25/24 21:58 Morphine 2mg/Ml Syringe IV 04/24/24 21:57 Q6HP PRN Severe Pain (7-10) Morphine Sulfate 2 mg 03/25/24 23:02 Morphine 2mg/Ml Syringe IV 04/24/24 21:57 Q6HP PRN Severe Pain (7-10) Ondansetron HCl 4 mg 03/25/24 21:58 Ondansetron 4mg/2ml Vial IV 04/24/24 21:57 Q8HP PRN Nausea Ondansetron HCl 4 mg 03/25/24 23:02 Ondansetron 4mg/2ml Vial IV 04/24/24 21:57 Q8HP PRN Nausea Sodium Chloride 50 ml 03/25/24 20:50 03/25/24 20:51 0.9 % Sodium Chloride 50 Ml Vial IV 03/25/24 20:51 50 ml ONCE ONE Administration ORDERS Category Date Time Status CT abdomen pelvis w con Stat Cat Scan 03/25/24 20:[address] angio chest PE protocol Stat Cat Scan 03/25/24 20:22 Completed CXR --portable [XR chest portable] Stat Exams 03/25/24 18:48 Completed POCUS Point of Care (ER Only) Stat Exams 03/25/24 19:27 Completed POCUS Point of Care (ER Only) Stat Exams 03/25/24 20:04 Completed BNP [NT Pro Brain Natriuretic Pep.] Stat Lab 03/25/24 19:05 Completed CRP [C-Reactive Protein] Stat Lab 03/25/24 19:05 Completed Complete Blood Count Auto Diff Stat Lab 03/25/24 19:05 Completed Comprehensive Metabolic Panel Stat Lab 03/25/24 19:05 Completed D-Dimer Stat Lab 03/25/24 19:05 Completed Ethyl Alcohol Stat Lab 03/25/24 19:05 Completed HIV (1&2) Antibody Rapid Stat Lab 03/25/24 19:05 Received Hep C Ab with Reflex to RNA Stat Lab 03/25/24 19:05 Received Lactic Acid Stat Lab 03/25/24 19:05 Completed Lipase Stat Lab 03/25/24 19:05 Completed MAG [Magnesium] Stat Lab 03/25/24 19:05 Completed PHOS [Phosphorous] Stat Lab 03/25/24 19:05 Completed PT INR [Prothrombin Time INR] Stat Lab 03/25/24 19:05 Completed PTT [Activated Partial Thrombo Time] Stat Lab 03/25/24 19:05 Completed Procalcitonin Stat Lab 03/25/24 19:05 Completed Rapid PCR Covid and Flu A/B Stat Lab 03/25/24 19:17 Completed T4 (Thyroxine) Stat Lab 03/25/24 19:05 Completed TSH [Thyroid Stimulating Hormone] Stat Lab 03/25/24 19:05 Completed Trop I [Troponin I] Stat Lab 03/25/24 19:05 Completed UA [Urinalysis and Microscopic] Stat Lab 03/25/24 21:40 Completed Blood Culture Stat Micro 03/25/24 19:04 Received Urine Culture Stat Micro 03/25/24 21:40 Received VBG [Venous Blood Gas] Stat RT 03/25/24 19:12 Completed VBG [Venous Blood Gas] Stat RT 03/25/24 20:21 Completed ECG Data Tracing #1: I reviewed this ECG and interpreted as documented below: Sinus tachycardia with a ventricular rate of 127 bpm. No acute STEMI. Normal intervals. ECG initial impression date: 03/25/24 ECG initial impression time: 18:53 Medical Decision Narrative: In summary, this patient is a 53-year-old male presenting to the Emergency Department for evaluation of edema and shortness of breath. Differential diagnoses considered include but are not limited to CHF, renal failure, liver failure, sepsis. Ruling out the most morbid conditions drove assessment. I reviewed patient's past medical records and noted patient does have a history of BPH, but no other issues noted on medical record review. On exam, the patient is in distress and is ill-appearing. He is anasarca and respiratory distress. Workup included broad lab evaluation to evaluate for infectious, metabolic, cardiac causes as well as chest x-ray and EKG. EKG is nonischemic. He is tachycardic with sinus tachycardia noted on EKG. patient meets SIRS criteria upon arrival, so he was given broad-spectrum antibiotics with IV vancomycin, cefepime, azithromycin with presumed respiratory component given his respiratory failure. He was not given sepsis bolus, as he is grossly volume overloaded on clinical exam. I performed bedside echo concerning for acute heart failure, extremely low EF. LV thrombus noted. I called Dr. Mcgill with cardiology. Based on his recommendations, patient was started on milrinone gtt., Bumex 4 mg push and Bumex gtt., heparin bolus and drip. Labs started result and are concerning for lactic acidosis, acute liver injury with elevated bilirubin, acute kidney injury, I presume all from cardiogenic shock now that I have performed echocardiogram and noted severely reduced EF. He has elevated troponin at 0.36. No STEMI on EKG. With cardiology recommendations, I am aggressively diuresing the patient as well as anticoagulating him. I sent the patient for CT PE as well as CT abdomen pelvis with IV contrast to rule out other acute pathology. They noted in addition to the LV thrombus he has a right atrial thrombus. He also has anasarca, pleural effusions. Patient responded very well to BiPAP, milrinone gtt., Bumex diuresis, heparin bolus and drip. On reassessment after about an hour on BiPAP, he was able to be weaned to room air with normal respiratory effort and O2 saturation of 98% on room air. Blood pressure remained stable here. He remained tachycardic in the 1 teens to 120s on multiple subsequent reassessments on cardiac telemetry. I had multiple interactive discussions with Dr. Mcgill with cardiology as well as with Dr. Martinez with hospital medicine who advised that they feel that we can admit the patient here for continued management of acute heart failure, LV thrombus, right atrial thrombus. After initial diuresis, patient had about 600 mL out right away. We are continue to monitor urine output. Ultimately, he was admitted for further evaluation management. Patient and son updated to plan of care and all test results. Procedures Limited Ultrasound Findings:: Limited cardiac ultrasound Indication: Shortness of breath, volume overload Identified cardiac views: [-Cardiac parasternal long axis] [-Cardiac parasternal short axis] [-Cardiac apical four-chamber] [-Cardiac subxiphoid] Findings: [-Cardiac activity present -Gross wall motion abnormal -Pericardial effusion absent -Right heart strain absent] Impression: -Grossly reduced EF, dilated cardiomyopathy. LV thrombus. No pericardial effusion or evidence of right heart strain. Images were saved to permanent archive The study was technically adequate CPT: 06548 This study was performed by me, and I personally interpreted all images/videos. Based on my clinical judgement, these images were adequate and did not necessitate further imaging. Critical Care Critical Care Time Critical Care Time: Yes Attestation: On 03/25/24, the high probability of a clinically significant, sudden or life threatening deterioration of the following system(s) required my full and direct attention, intervention and personal management. The time I documented below is in addition to time spent performing reported procedures but includes the following listed in this critical care notation. Total Time Total Critical Care Time: 50
[2024-03-25] MEDS: ACETAMINOPHEN 1,000MG/100ML VIAL 1000 MG IV (19:12)
--- NOTE | 2024-03-25 19:13 | PC.NURSE ---
RT notified of VBG order and blood sent to lab
[2024-03-25 19:18] LABS: VBG Base Excess -1.3 mmol/L (-2.4-2.3); VBG HCO3 24.3 mmol/L (23-30); VBG Oxygen Saturation 53.9 % (50-70); VBG PCO2 45.1 mmol/L (35-51); VBG PH 7.35 mmol/L (7.31-7.41); VBG Total CO2 25.7 mmol/L (23-27)
[2024-03-25 19:19] LABS: Lactate Venous 4.2 mmol/L (0.4-2.0)
[2024-03-25 19:37] LABS: Albumin Level 3.6 g/dl (3.5-5.0)
[2024-03-25 19:38] LABS: Chloride 98 mmol/L (98-107); Potassium 4.6 mmoL/L (3.5-5.1); Sodium 132 mmol/L (136-145)
[2024-03-25 19:40] LABS: Alkaline Phosphatase 229 U/L (38-126); Anion Gap 13.6 mEq/L (5-15); Aspartate Amino Transferase 416 U/L (17-59); Bilirubin,Total 3.1 mg/dl (0.2-1.3); Blood Urea Nitrogen 31 mg/dl (9-20); Carbon Dioxide 25 mmol/L (22.0-30.0); Creatinine Clearance Estimated 46 mL/min (50-200); Estimated Glomerular Filt Rate 40 ml/min (>60); GFR (African American) 48 ML/MIN (>60)
[2024-03-25 19:41] LABS: Albumin/Globulin Ratio 1.3 (1.1-1.8); Calcium 9.5 mg/dl (8.4-10.2); Globulin 2.7 g/dL (1.3-3.2); Glucose 129 mg/dl (74-100); Lipase 270 U/L (23-300); Magnesium 1.9 mg/dl (1.6-2.3); Total Protein,Serum 6.3 g/dl (6.3-8.2)
[2024-03-25 19:44] LABS: Activated Partial Thrombo Time 29.6 seconds (22.8-30.6); Basophils # 0.1 K/mm3 (0-0.2); Basophils % 0.5 % (0.1-2.0); Eosinophils # 0.2 K/mm3 (0.0-0.4); Eosinophils % 1.7 % (0.1-12.0); Hematocrit 47.5 % (42.0-52.0); Hemoglobin 14.9 g/dL (14.1-18.0); INR 1.44 (0.9-1.1); Lymphocytes # 1.3 K/mm3 (0.7-4.5); Lymphocytes % 12.2 % (10-50); Mean Corpuscular HGB Conc 31.4 g/dL (31.8-35.4); Mean Corpuscular Hemoglobin 29.6 pg (27.0-31.2); Mean Corpuscular Volume 94.3 fl (80-94); Mean Platelet Volume 9.2 fl (7.4-10.4); Monocytes % 9.8 % (1.7-9.3); Neutrophils # 7.7 K/mm3 (1.8-7.8); Neutrophils % 75.7 % (37.0-80.0); Platelet Count 166 K/mm3 (142-424); Prothrombin Time 15.6 seconds (10.1-12.5); Red Blood Count 5.04 M/mm3 (4.60-6.20); Red Cell Distribution Width 14.3 % (11.5-17.5); White Blood Count 10.2 K/mm3 (4.8-10.8)
[2024-03-25 19:45] LABS: C-Reactive Protein 61.5 mg/L (0-4)
[2024-03-25 19:47] LABS: Coronavirus 19, PCR Not Detected (NotDetected); Influenza A, PCR Not Detected (NotDetected); Influenza B, PCR Not Detected (NotDetected)
[2024-03-25 19:52] LABS: NT Pro Brain Natriuretic Pep. 7840 pg/mL (0-125)
[2024-03-25 19:53] LABS: Lactic Acid 3.4 mmol/L (0.7-2.1)
[2024-03-25] MEDS: CEFEPIME HCL 2 GM in 0.9 % SODIUM CHLORIDE 100 ML IV (19:55)
[2024-03-25 19:57] LABS: Troponin I 0.36 ng/ml (0.00-0.034)
[2024-03-25 19:58] LABS: Alanine Aminotransferase 1078 U/L (12-78)
[2024-03-25 19:59] LABS: T4 (Thyroxine) 7.2 ug/dl (5.53-11.0)
[2024-03-25 20:13] LABS: D-Dimer 4.78 ug/mL (0.0-0.5)
[2024-03-25] MEDS: AZITHROMYCIN 500 MG in 0.9 % SODIUM CHLORIDE 250 ML 250 MG IV (20:15)
--- NOTE | 2024-03-25 20:17 | PC.NURSE ---
Spoke with Radha at [facility] pharmacy to order a heparin bolus and order a drip as well, she dosed it at 5,500 units for the bolus and 1,200 units for the drip.
--- NOTE | 2024-03-25 20:18 | PC.NURSE ---
Dr. Zhu at bedside
--- NOTE | 2024-03-25 20:22 | CT_ITS ---
PROCEDURE INFORMATION: Exam: CTA Chest With Contrast Exam date and time: 03/25/2024 8:36 PM Age: 53 years old Clinical indication: Shortness of breath; Additional info: Acute heart failure, transaminitis, resp failure TECHNIQUE: Imaging protocol: Computed tomographic angiography of the chest with contrast. Exam focused on the arteries. 3D rendering (Not supervised by radiologist): MIP and/or 3D reconstructed images were created by the technologist. Radiation optimization: All CT scans at this facility use at least one of these dose optimization techniques: automated exposure control; mA and/or kV adjustment per patient size (includes targeted exams where dose is matched to clinical indication); or iterative reconstruction. Contrast material: ISOVUE; Contrast volume: 70 ml; Contrast route: INTRAVENOUS (IV); COMPARISON: CT ANGIO CHEST PE PROTOCOL 03/25/2024 8:36 PM FINDINGS: Pulmonary arteries: No CTA evidence of pulmonary embolus. Aorta: Unremarkable. No aortic aneurysm. No aortic dissection. Lungs: Large lingular alveolar infiltrate. Pleural spaces: Bilateral pleural effusions right greater than left. Heart: 13 mm right atrial thrombus. Large left ventricular apical thrombus. Lymph nodes: Unremarkable. No enlarged lymph nodes. Intraperitoneal space: Ascites. Bones/joints: Unremarkable. No acute fracture. Soft tissues: Anasarca. IMPRESSION: 1. Large lingular alveolar infiltrate. 2. No CTA evidence of pulmonary embolus. 3. Large left ventricular apical thrombus. 4. Small right atrial thrombus 13 mm. 5. Anasarca. 6. Bilateral pleural effusions. 7. Ascites.
--- NOTE | 2024-03-25 20:22 | CT_ITS ---
PROCEDURE INFORMATION: Exam: CT Abdomen And Pelvis With Contrast Exam date and time: 03/25/2024 8:36 PM Age: 53 years old Clinical indication: Other: Acute heart failure, transaminitis, resp failure TECHNIQUE: Imaging protocol: Computed tomography of the abdomen and pelvis with contrast. 3D rendering (Not supervised by radiologist): MIP and/or 3D reconstructed images were created by the technologist. Radiation optimization: All CT scans at this facility use at least one of these dose optimization techniques: automated exposure control; mA and/or kV adjustment per patient size (includes targeted exams where dose is matched to clinical indication); or iterative reconstruction. Contrast material: ISOVUE; Contrast volume: 70 ml; Contrast route: IV; COMPARISON: CT ABDOMEN PELVIS WO CON 11/04/2020 8:08 AM FINDINGS: Tubes, catheters and devices: None noted. Lungs: Pleural-based lingular consolidated alveolar infiltrate. Pleural spaces: Bilateral pleural effusions right greater than left. Heart: Severe proximal coronary calcifications. 13 mm right atrial thrombus. 3.4 cm left ventricular apical thrombus. No cardiomegaly. No significant pericardial effusion. Liver: Normal. No mass. Gallbladder and biliary ducts: Normal. No calcified stones. No ductal dilation. Pancreas: Normal. No ductal dilation. Spleen: Normal. No splenomegaly. Adrenal glands: Normal. No mass. Kidneys and ureters: Normal. No hydronephrosis. Stomach and bowel: Unremarkable. No obstruction. No mucosal thickening. Appendix: No evidence of appendicitis. Intraperitoneal space: Ascites. No free air. No significant fluid collection. Retroperitoneal space: No significant retroperitoneal inflammatory changes are noted. Vasculature: Unremarkable. No abdominal aortic aneurysm. Lymph nodes: Unremarkable. No enlarged lymph nodes. Urinary bladder: Unremarkable as visualized. Reproductive: Unremarkable as visualized. Bones/joints: PLIF lumbar spine L3-L4. Fusion L4-L5. No acute fracture. Soft tissues: Anasarca. IMPRESSION: 1. Right atrial thrombus. 2. Left ventricular apical thrombus quite large 3.4 cm. Recommend cardiology consultation. 3. Ascites. Anasarca. 4. Prior fusion L3-L4 and L4-L5.
[2024-03-25] MEDS: BUMETANIDE 1MG/4ML VIAL 4 MG IV (20:23)
[2024-03-25] MEDS: HEPARIN SODIUM 5,000 UNIT/ML VIAL 5500 UNIT IV (20:26)
[2024-03-25 20:27] LABS: Procalcitonin 0.406 ng/mL (0.0-2.0)
[2024-03-25] MEDS: BUMETANIDE 10 MG in 0.9 % SODIUM CHLORIDE 60 ML 5 MG IV (20:29)
[2024-03-25] MEDS: HEPARIN 25,000 UNITS/D5W 500 ML 24 UNIT IV (20:33)
[2024-03-25 20:35] LABS: Ethyl Alcohol < 10 mg/dl (0-10)
[2024-03-25] MEDS: IOPAMIDOL-370 (76%);100ML BOTTLE 70 ML IV (20:51)
[2024-03-25] MEDS: SODIUM CHLORIDE 0.9% 10ML SYR (RAD ONLY) 10 ML IV (20:51)
[2024-03-25] MEDS: 0.9 % SODIUM CHLORIDE 50 ML VIAL IV (20:51)
--- NOTE | 2024-03-25 20:56 | PC.NURSE ---
Started the heparin @ 1200 units/hr VTBI of 500mLs, 24mLs/hr. as per the MAR
[2024-03-25 21:07] LABS: Lactate Venous 3.3 mmol/L (0.4-2.0); VBG Base Excess -2.9 mmol/L (-2.4-2.3); VBG HCO3 22.6 mmol/L (23-30); VBG Oxygen Saturation 75.5 % (50-70); VBG PCO2 40.9 mmol/L (35-51); VBG PH 7.36 mmol/L (7.31-7.41); VBG PO2 42.7 mmol/L (28-40); VBG Total CO2 23.8 mmol/L (23-27)
[2024-03-25] MEDS: MILRINONE LACTATE 20 MG in 0.9 % SODIUM CHLORIDE 80 ML 2.55 MG IV (21:14)
--- NOTE | 2024-03-25 21:15 | PC.NURSE ---
Called Daniel, and s/w Quintin to check medication compatibility. States: Bumex and Milrinone are compatible. Milrinone and Heparin are compatible. Heparin and Bumex ARE NOT compatible
[2024-03-25 21:53] LABS: Microscopic, Urine URINE MICROSCOPIC (MICROSCOPIC)
[2024-03-25 21:54] LABS: Appearance,Urine CLEAR (Clear); Blood, Urine 1+ (Negative); Color,Urine YELLOW (Yellow); Glucose,Urine (UA) Negative (Negative); Ketones,Urine Negative (Negative); Leukocyte Esterase,Urine Negative (Negative); Nitrate,Urine Negative (Negative); PH,Urine 5.5 (5.0-8.5); Protein,Urine 2+ (Negative); Specific Gravity, Urine 1.025 (1.005-1.030)
--- NOTE | 2024-03-25 21:56 | EXP.HP ---
History of Present Illness *Admission Date: 03/25/24 *Reason for visit:: SOB, generalized swelling, malaise *History of present illness: 53-year-old with past medical history of B12 deficiency, hypertension, BPH, back surgery. Patient has not visited PCP in several years and presents with generalized swelling, SOB, hypoxia initially on BiPAP in emergency room. Patient states symptoms have been occurring for several weeks, but gotten worse over past few days. Patient presented to emergency room on BiPAP, but gradually weaned to 2 to 3 L nasal cannula several hours after admission in ED. Admits to dry cough with chest discomfort with coughing. States he suffered from abdominal discomfort and distention for several weeks. Also admits to some ataxia for weeks. Also admits to cold clammy hands over past few days. Denies fevers, chills, shortness of breath, recent travel, blurry vision, headaches. CTA chest showing no PE but bilateral pleural effusions anasarca and ascites. LA 4.2-> 3.3, TSH 4.6, T=47.2, procalcitonin 0.406, troponin 0.36. BNP 7840, AST 416, ALT 1078, alk phos 229, total bili 3.1, BUN 31, creatinine 1.8. LV thrombus noted on bedside echocardiogram in emergency room. [facility] Disclaimer: The information contained in this section may have been updated after the patient was seen, as this information can be updated by other users. Medical History Vitamin B12 deficiency Allergic rhinitis BPH (benign prostatic hyperplasia) Hyperlipidemia Insomnia Partial tear of right Achilles tendon Social History Smoking Status: Never smoker alcohol intake: never substance use type: former substance user and heroin current occupational status: unemployed Travel in the last 8 weeks: None Have you lived/traveled outside [place] in past 30 days?: No Contact w/someone who lives/traveled outside US past 30 days?: No Exposure to someone with infectious disease in past 14 days?: No Do you have a fever (greater than 100.4 F or 38 C)?: No Have you tested positive for COVID-19: No Exposed to someone with COVID-19 in past 14 days?: No Do you have a sore throat?: No Do you have a cough?: No Do you have any weakness?: No Do you have any diarrhea?: No Are you experiencing any unusual bleeding?: No Do you have any muscle aches/pain?: No Do you have any abdominal pain?: No Are you experiencing loss of taste or smell?: No Other Medical History Have you received the Flu Vaccine for this season: No Have you received the Pneumonia Vaccine: No Review of Systems Review of Systems Review of systems:: pertinent systems reviewed and negative unless documented below Constitutional Constitutional: Reports system reviewed and no additional complaints, except as documented Meds Home Medications and Allergies Home Medications ?Medication ?Instructions ?Recorded ?Confirmed ?Type loratadine 10 mg tablet (Allergy 10 mg PO DAILY #90 tabs 10/08/20 08/12/21 Rx Relief (loratadine)) finasteride 5 mg tablet (Proscar) 5 mg PO DAILY #30 tabs 10/20/20 08/12/21 Rx fluticasone propionate 50 1 spray intranasal QDAY 30 days 12/24/20 08/12/21 Rx mcg/actuation nasal #9.9 grams spray,suspension (Flonase Allergy Relief) montelukast 10 mg tablet 10 mg PO QDAY 90 days #90 tabs 12/24/20 08/12/21 Rx (Singulair) cyclobenzaprine 10 mg tablet 10 mg PO Q8H PRN muscle spasm #30 07/22/21 08/12/21 Rx tabs lidocaine 5 % topical patch 1 patch topical DAILY #30 ea 07/22/21 08/12/21 Rx (Lidoderm) naproxen 500 mg tablet,delayed 500 mg PO BID #20 tabs 07/22/21 08/12/21 Rx release (EC-Naproxen) cholecalciferol (vitamin D3) 25 25 mcg PO DAILY #90 caps 07/24/21 08/12/21 Rx mcg (1,000 unit) capsule ergocalciferol (vitamin D2) 1,250 1,250 mcg PO WEEKLY #14 caps 07/24/21 08/12/21 Rx mcg (50,000 unit) capsule New Prescriptions to Start Prescriptions: Allergies Allergy/AdvReac Type Severity Reaction Status Date / Time diclofenac (DICLOFENAC) Allergy Unknown Verified 08/12/21 13:08 Penicillins (PENICILLINS) Allergy Unknown Verified 08/12/21 13:08 propoxyphene (PROPOXYPHENE) Allergy Unknown Verified 08/12/21 13:08 tramadol (TRAMADOL) Allergy Unknown Verified 08/12/21 13:08 Exam Data for Last 24 hours Vital signs and Labs for Last 24 Hours: Temp Pulse Resp BP Pulse Ox O2 Del Method O2 Flow Rate 99 F 128 H 26 H 136/96 H 97 Nasal Cannula 3 03/25/24 18:47 03/25/24 18:47 03/25/24 18:47 03/25/24 18:47 03/25/24 18:47 03/25/24 18:47 03/25/24 18:47 Laboratory Results - last 24 hr 03/25/24 19:05: WBC 10.2, RBC 5.04, Hgb 14.9, Hct 47.5, MCV 94.3 H, MCH 29.6, MCHC 31.4 L, RDW 14.3, Plt Count 166, MPV 9.2, Neut % (Auto) 75.7, Lymph % (Auto) 12.2, [place] % (Auto) 9.8 H, Eos % (Auto) 1.7, Baso % (Auto) 0.5, Neut # (Auto) 7.7, Lymph # (Auto) 1.3, [place] # (Auto) 1.0, Eos # (Auto) 0.2, Baso # (Auto) 0.1, PT 15.6 H, INR 1.44 H, APTT 29.6, D-Dimer 4.78 H, Sodium 132 L, Potassium 4.6, Chloride 98, Carbon Dioxide 25, Anion Gap 13.6, BUN 31 H, Creatinine 1.80 H, Estimated Creat Clear 46, Estimated GFR 40 L, Est GFR ( Amer) 48 L, Glucose 129 H, Lactate 3.4 H, Calcium 9.5, Phosphorus 4.0, Magnesium 1.9, Total Bilirubin 3.1 H, AST 416 H*, ALT 1078 H*, Alkaline Phosphatase 229 H, Troponin I 0.36 H, C-Reactive Protein 61.5 H, NT-Pro-B Natriuret Pep 7840 H, Total Protein 6.3, Albumin 3.6, Globulin 2.7, Albumin/Globulin Ratio 1.3, Lipase 270, Procalcitonin 0.406, TSH 4.60, Thyroxine (T4) 7.2, Plasma/Serum Alcohol < 10 03/25/24 19:12: VBG pH 7.35, VBG pCO2 45.1, VBG pO2 31.0, VBG HCO3 24.3, VBG Total CO2 25.7, VBG O2 Saturation 53.9, VBG Base Excess -1.3, VBG Lactic Acid 4.2 H 03/25/24 19:17: SARS-CoV-2 (PCR) Not detected, Influenza A Untype (PCR) Not detected, Influenza Type B (PCR) Not detected 03/25/24 20:21: VBG pH 7.36, VBG pCO2 40.9, VBG pO2 42.7 H, VBG HCO3 22.6 L, VBG Total CO2 23.8, VBG O2 Saturation 75.5 H, VBG Base Excess -2.9 L, VBG Lactic Acid 3.3 H I & O for Last 24 hours: Intake & Output 03/22/24 03/23/24 03/24/24 03/25/24 23:59 23:59 23:59 23:59 Weight 68.039 kg Constitutional Constitutional: moderate distress, obese, chronically ill appearing and disheveled *Routine HEENT Exam Head: Present normocephalic Eye: Present EOMI ENT: Present mucous membranes moist *Routine Neck Exam Neck: Present supple and JVD *Routine Respiratory Exam Respiratory: Present decreased breath sounds and distant breath sounds *Routine Cardiovascular Exam Cardiovascular: Present RRR, Normal S1 and Normal S2 *Routine Abdominal Exam Abdominal: Present normoactive bowel sounds, tenderness, distended and firm *Routine Rectal Exam Rectal:: deferred *Routine Genitalia Exam Genitalia:: deferred *Routine Extremities Exam Extremities: Present extremity cold to touch *Routine Skin Exam Skin: Present intact and normal turgor *Routine Neurological Exam Neurological: Present alert and oriented X3 Assessment and Plan *Assessment and plan (1) Cardiogenic shock: Status: Acute Category: Medical Code(s): R57.0 - Cardiogenic shock (2) Acute decompensated heart failure: Status: Acute Category: Medical Code(s): I50.9 - Heart failure, unspecified (3) LV (left ventricular) mural thrombus: Status: Acute Category: Medical Code(s): I51.3 - Intracardiac thrombosis, not elsewhere classified (4) Transaminitis: Status: Acute Category: Medical Code(s): R74.01 - Elevation of levels of liver transaminase levels (5) RENAY (acute kidney injury): Status: Acute Category: Medical Code(s): N17.9 - Acute kidney failure, unspecified (6) Anasarca: Status: Acute Category: Medical Code(s): R60.1 - Generalized edema (7) Acute hypoxemic respiratory failure: Status: Acute Category: Medical Code(s): J96.01 - Acute respiratory failure with hypoxia Plan 53-year-old with past medical history of B12 deficiency, hypertension, BPH, back surgery. Patient has not visited PCP in several years and presents with generalized swelling, SOB, hypoxia initially on BiPAP in emergency room. Patient admitted for new onset CHF. CTA chest showing no PE but bilateral pleural effusions anasarca and ascites.troponin 0.36 LA 4.2-> 3.3, TSH 4.6, T4=7.2, procalcitonin 0.406, BNP 7840, AST 416, ALT 1078, alk phos 229, total bili 3.1, BUN 31, creatinine 1.8. LV thrombus noted on bedside echocardiogram in emergency room. Problems as listed below: Labs/imaging reviewed at time of admission: ? [id number] ultrasound shows LV thrombus,CTA chest showing no PE but bilateral pleural effusions anasarca and ascites. ?LA 4.2-> 3.3, TSH 4.6, T47.2, procalcitonin 0.406, BNP 7840, AST 416, ALT 1078, alk phos 229, total bili 3.1, BUN 31, creatinine 1.8. NA 132, K4.6, MAG 1.9, CL 98, CO2 25. I will repeat CMP, CBC, and mag in AM. Anasarca likely secondary to new onset CHF: ? Labs and imaging results listed above indicating new onset CHF. Dr. Mcgill phoned overnight, and will likely perform cardiac catheterization in AM. Milrinone 0.125 mcg/kg/min, Bumex 5 mL/hr. LV thrombus ?heparin GTT. Cardiogenic shock: ? On milrinone 0.125 mcg per kilogram per minute gtt. Will rule out septic shock given procalcitonin elevated. Cefepime 1 g IV every 12. Vancomycin 1 g given in emergency room with pharmacy to dose. Follow blood cultures, urine cultures and respiratory panel results. RENAY: Probably due to shock. Will treat as noted in cardiogenic shock and anasarca sections. Non-STEMI: ? Admission troponin 0.36. As above and LV thrombus and anasarca sections. Hypertension: ? Hydralazine 10 mg IV every 6 hours as needed SBP over 160 Transaminitis likely secondary to ischemic hepatitis: ? Possibly secondary to decreased hepatic blood flow from heart failure. Will follow transaminases. Hepatitis panel ordered in emergency room. BPH: Finasteride 5 mg p.o. daily PPx heparin GTT FEN cardiac fluid restriction 1.5 L/day MDM Copa: High, patient's acute CHF/anasarca/LV thrombus close risk to life and bodily function Data: High, see above. Patient's son acted as independent historian during interview with Dr. Martinez today. Spoke with emergency room provider and with Dr. Mcgill and agrees that patient appropriate for admission at this institution for anasarca management. Risk: High, patient on IV Bumex/heparin/milrinone as noted above. The rest of prescription drug management as stated above. I made decision to admit patient to hospital due to high risk of /decompensation and patient discharged home with new onset anasarca/CHF with LV thrombus. 35 minutes of critical care time spent with patient with Dr. Martinez 03/15/2024
[2024-03-25 22:14] LABS: Bacteria,Urine Trace /lpf
[2024-03-25 22:16] LABS: Bilirubin,Urine 1+ (Negative)
[2024-03-25 22:41] VITALS: BP 125/92; PULSE 119; RESP 15; TEMP 37.2; O2SAT 96
[2024-03-25 23:00] VITALS: BP 122/101; PULSE 116; RESP 26; TEMP 37; O2SAT 95
[2024-03-25 23:19] LABS: Reflex Lactic Add Lactic Reflex
[2024-03-25 23:35] LABS: Adenovirus,PCR Not Detected (NotDetected); Bordetella Pertussis Not Detected (NotDetected); Chlamydophila Pneumoniae, PCR Not Detected (NotDetected); Coronavirus 19, PCR Not Detected (NotDetected); Coronavirus 229E Not Detected (NotDetected); Coronavirus NL63 Not Detected (NotDetected); Coronavirus OC43 Not Detected (NotDetected); Coronovirus HKU1,PCR Not Detected (NotDetected); Human Metapneumovirus Not Detected (NotDetected); Influenza A, PCR Not Detected (NotDetected); Influenza AH1, 2009 Not Detected (NotDetected); Influenza AH1, PCR Not Detected (NotDetected); Influenza AH3,PCR Not Detected (NotDetected); Influenza B, PCR Not Detected (NotDetected); Mycoplasma Pneumoniae, PCR Not Detected (NotDetected); Parainfluenza 1, PCR Not Detected (NotDetected); Parainfluenza 2, PCR Not Detected (NotDetected); Parainfluenza 3, PCR Not Detected (NotDetected); Parainfluenza 4, PCR Not Detected (NotDetected); Respiratory Syncytial Virus Not Detected (NotDetected); Rhinovirus/Enterovirus Not Detected (NotDetected)
[2024-03-25] MEDS: CEFEPIME HCL 1 GM in 0.9 % SODIUM CHLORIDE 50 ML IV (23:41)
[2024-03-25] MEDS: VANCOMYCIN CONSULT REQUEST 1 EACH NOTAPPLIC ×2 (23:49→23:54)
[2024-03-25] MEDS: VANCOMYCIN/WATER FOR INJ (PEG) 1.5 GM/300 ML PIGGYBACK IV (23:52)
[2024-03-26] VITALS (46 sets, daily range): BP systolic 100–149; BP diastolic 50–85; PULSE 87–120; RESP 11–32; TEMP 36.4–36.8; O2SAT 91–99; BMI 23.5
[2024-03-26 01:56] LABS: PTT Heparin (inpatient only) > 200.0 Seconds (50-75)
--- NOTE | 2024-03-26 02:05 | PC.NURSE ---
Spoke with Quintin at [facility] pharmacy. New orders placed per Quintin from [facility] to decrease heparin gtt to 1,000 units/hr (20 ml). Also, new order placed for repeat aptt draw at 0300 placed per protocol per RN.
[2024-03-26] MEDS: HEPARIN 25,000 UNITS/D5W 500 ML 20 UNIT IV (02:10)
[2024-03-26 03:19] LABS: Basophils # 0.1 K/mm3 (0-0.2); Basophils % 0.6 % (0.1-2.0); Eosinophils # 0.2 K/mm3 (0.0-0.4); Eosinophils % 1.7 % (0.1-12.0); Hemoglobin 14.7 g/dL (14.1-18.0); Lymphocytes # 1.4 K/mm3 (0.7-4.5); Lymphocytes % 14.5 % (10-50); Mean Corpuscular HGB Conc 31.9 g/dL (31.8-35.4); Mean Corpuscular Hemoglobin 29.6 pg (27.0-31.2); Mean Corpuscular Volume 92.8 fl (80-94); Mean Platelet Volume 9.1 fl (7.4-10.4); Monocytes # 0.8 K/mm3 (0.1-1.0); Monocytes % 8.1 % (1.7-9.3); Neutrophils # 7.2 K/mm3 (1.8-7.8); Neutrophils % 75.1 % (37.0-80.0); Platelet Count 168 K/mm3 (142-424); Red Blood Count 4.96 M/mm3 (4.60-6.20); Red Cell Distribution Width 14.5 % (11.5-17.5); White Blood Count 9.6 K/mm3 (4.8-10.8)
[2024-03-26 03:29] LABS: Albumin Level 3.2 g/dl (3.5-5.0); Albumin/Globulin Ratio 1.2 (1.1-1.8); Alkaline Phosphatase 211 U/L (38-126); Aspartate Amino Transferase 275 U/L (17-59); Bilirubin,Total 3.2 mg/dl (0.2-1.3); Blood Urea Nitrogen 34 mg/dl (9-20); Calcium 9.3 mg/dl (8.4-10.2); Carbon Dioxide 24 mmol/L (22.0-30.0); Chloride 99 mmol/L (98-107); Creatinine Clearance Estimated 48 mL/min (50-200); Estimated Glomerular Filt Rate 42 ml/min (>60); GFR (African American) 51 ML/MIN (>60); Globulin 2.6 g/dL (1.3-3.2); Glucose 134 mg/dl (74-100); Magnesium 1.6 mg/dl (1.6-2.3); Sodium 132 mmol/L (136-145); Total Protein,Serum 5.8 g/dl (6.3-8.2)
[2024-03-26 03:35] LABS: Alanine Aminotransferase 938 U/L (12-78)
[2024-03-26 03:48] LABS: PTT Heparin (inpatient only) 198.4 Seconds (50-75)
--- NOTE | 2024-03-26 03:55 | PC.NURSE ---
Spoke with Quintin at [facility]. New order placed in Jun to decrease heparin gtt to 800 units/hr (16mls) per most recent aptt draw.
[2024-03-26] MEDS: HEPARIN 25,000 UNITS/D5W 500 ML 16 UNIT IV (04:00)
--- NOTE | 2024-03-26 07:08 | CA_ITS ---
APPROVED REPORT EXAM: Comprehensive 2D, Doppler, and color-flow Echocardiogram [employer]: Valery Dowling RDCS Ht: 5 ft 7 in Wt: 150lbs BSA: 1.79 BP: 120/81 mmHg Indications: ACUTE CHF,THROMBUS LV 2D Dimensions LA Volume 66.60 mL LA Volume Index 37.21 mL/m2 (M/F) 16-34 M-Mode Dimensions RVDd 3.05 cm (0.9-2.6) LA Diam 4.42 cm (1.9-4.0) LVDd 4.00 cm (3.5-5.7) LVDs 5.32 cm (3.5-5.7) IVSd 0.51 cm (0.6-1.1) PWd 2.50 cm (0.6-1.1) EF (Teich) 95.00% FS 33.00% EDV (Teich) 70.00 mL TAPSE 1.57 (<1.7) ESV (Teich) 136.50 mL LV Diastology E Decel Time 57 (160-240 msec) E/A Ratio 2.0 Mitral Valve MV E Max Gabino. 86.0 (40-130 cm/s) MV A Velocity 44.0 (40-130 cm/s) E/A Ratio 1.96 MV PHT 17.0 ms Tricuspid Valve TR P. Velocity 306.00 cm/s RAP Estimate 10.00 mmHg RVSP 47.50 mmHg Left Ventricle The left ventricle is normal size. There is severe reduction global LV systolic function. There is increased LV wall thickness. The septal, anteroseptal, and inferior septal LV rivera are akinetic. The LV apex is also akinetic. Grade 2 diastolic dysfunction is present. There is a large echodensity in the LV apex. Administration of ultrasound enhancing agent demonstrates filling defect, measuring 3.5 cm x 2.5 cm, suggestive of presence of large apical thrombus. LVEF is 20%. Right Ventricle Right ventricle is mildly dilated. Right ventricle is severely hypokinetic. Atria The left atrium is moderately dilated. Right atrium is moderately dilated. There is no Doppler evidence of interatrial shunt. Aortic Valve The aortic valve is mildly thickened. There is no aortic valvular stenosis. Trace aortic regurgitation. Mitral Valve The mitral valve is mildly thickened. No evidence of mitral valve stenosis. Mild mitral regurgitation. Tricuspid Valve The tricuspid valve leaflets are thin and pliable. Mild tricuspid regurgitation. RVSP is 35-40 mmHg. Pulmonic Valve The pulmonary valve is normal in structure. Trace pulmonic regurgitation. Great Vessels The aortic root is normal in size. The ascending aorta is not well-visualized. IVC is normal in size and collapses >50% with inspiration. Pericardium There is no pericardial effusion. Pleural effusion is present. Hepatic ascites is also present. Other Information Study Quality: Fair Conclusion Severe reduction in global LV systolic function (LVEF 20%). Septal, anteroseptal, and inferior septal LV rivera are akinetic. The LV apex is also akinetic. Grade 2 diastolic dysfunction is present. There is a large echodensity in the LV apex. Administration of ultrasound enhancing agent demonstrates filling defect, measuring 3.5 cm x 2.5 cm, suggestive of presence of large apical thrombus. Mild RV dilation with severe reduction in RV function. Biatrial dilation. Mild MR, mild TR. Pleural effusion. Ascites. Of note, the right atrial thrombus noted on the CTA chest is not visualized in this study. The above findings were related to the inpatient cardiology consult team at the time of image acquisition. Electronically signed by : Es Bustillo MD 03/26/2024 10:44:00
--- NOTE | 2024-03-26 07:40 | EXP.PHA.CONS ---
Pharmacy Consult Date: 03/26/24 Time: 07:40 Referring provider: DR. MARTINEZ Reason for Consult:: VANCOMYCIN DOSING Allergies Allergy/AdvReac Type Severity Reaction Status Date / Time diclofenac (DICLOFENAC) Allergy Unknown Verified 08/12/21 13:08 Penicillins (PENICILLINS) Allergy Unknown Verified 08/12/21 13:08 propoxyphene (PROPOXYPHENE) Allergy Unknown Verified 08/12/21 13:08 tramadol (TRAMADOL) Allergy Unknown Verified 08/12/21 13:08 Home Medications ?Medication ?Instructions ?Recorded ?Confirmed ?Type loratadine 10 mg tablet (Allergy 10 mg PO DAILY #90 tabs 10/08/20 08/12/21 Rx Relief (loratadine)) finasteride 5 mg tablet (Proscar) 5 mg PO DAILY #30 tabs 10/20/20 08/12/21 Rx fluticasone propionate 50 1 spray intranasal QDAY 30 days 12/24/20 08/12/21 Rx mcg/actuation nasal #9.9 grams spray,suspension (Flonase Allergy Relief) montelukast 10 mg tablet 10 mg PO QDAY 90 days #90 tabs 12/24/20 08/12/21 Rx (Singulair) cyclobenzaprine 10 mg tablet 10 mg PO Q8H PRN muscle spasm #30 07/22/21 08/12/21 Rx tabs lidocaine 5 % topical patch 1 patch topical DAILY #30 ea 07/22/21 08/12/21 Rx (Lidoderm) naproxen 500 mg tablet,delayed 500 mg PO BID #20 tabs 07/22/21 08/12/21 Rx release (EC-Naproxen) cholecalciferol (vitamin D3) 25 25 mcg PO DAILY #90 caps 07/24/21 08/12/21 Rx mcg (1,000 unit) capsule ergocalciferol (vitamin D2) 1,250 1,250 mcg PO WEEKLY #14 caps 07/24/21 08/12/21 Rx mcg (50,000 unit) capsule New Prescriptions to Start Prescriptions: Height: 1.7 m Weight: 68.039 kg Laboratory Results:: Laboratory Results - last 24 hr 03/25/24 19:05: WBC 10.2, RBC 5.04, Hgb 14.9, Hct 47.5, MCV 94.3 H, MCH 29.6, MCHC 31.4 L, RDW 14.3, Plt Count 166, MPV 9.2, Neut % (Auto) 75.7, Lymph % (Auto) 12.2, [place] % (Auto) 9.8 H, Eos % (Auto) 1.7, Baso % (Auto) 0.5, Neut # (Auto) 7.7, Lymph # (Auto) 1.3, [place] # (Auto) 1.0, Eos # (Auto) 0.2, Baso # (Auto) 0.1, PT 15.6 H, INR 1.44 H, APTT 29.6, D-Dimer 4.78 H, Sodium 132 L, Potassium 4.6, Chloride 98, Carbon Dioxide 25, Anion Gap 13.6, BUN 31 H, Creatinine 1.80 H, Estimated Creat Clear 46, Estimated GFR 40 L, Est GFR ( Amer) 48 L, Glucose 129 H, Lactate 3.4 H, Calcium 9.5, Phosphorus 4.0, Magnesium 1.9, Total Bilirubin 3.1 H, AST 416 H*, ALT 1078 H*, Alkaline Phosphatase 229 H, Troponin I 0.36 H, C-Reactive Protein 61.5 H, NT-Pro-B Natriuret Pep 7840 H, Total Protein 6.3, Albumin 3.6, Globulin 2.7, Albumin/Globulin Ratio 1.3, Lipase 270, Procalcitonin 0.406, TSH 4.60, Thyroxine (T4) 7.2, Plasma/Serum Alcohol < 10 03/25/24 19:12: VBG pH 7.35, VBG pCO2 45.1, VBG pO2 31.0, VBG HCO3 24.3, VBG Total CO2 25.7, VBG O2 Saturation 53.9, VBG Base Excess -1.3, VBG Lactic Acid 4.2 H 03/25/24 19:17: Chlamy pneumoniae PCR Not detected, Adenovirus (PCR) Not detected, B. pertussis DNA (PCR) Not detected, Coronavirus OC43 (PCR) Not detected, Coronavirus HKU1 (PCR) Not detected, Coronavirus 229E (PCR) Not detected, SARS-CoV-2 (PCR) Not detected 03/25/24 19:17: SARS-CoV-2 (PCR) Not detected, Coronavirus NL63 (PCR) Not detected, Human Metapneumovir PCR Not detected, Influenza A (H1) PCR Not detected, Influ A (H1N1/09) PCR Not detected, Influenza A (H3) PCR Not detected, Influenza Type A (PCR) Not detected, Influenza A Untype (PCR) Not detected, Influenza Type B (PCR) Not detected 03/25/24 19:17: Influenza Type B (PCR) Not detected, M. pneumoniae (PCR) Not detected, Parainfluenza 1 (PCR) Not detected, Parainfluenza 2 (PCR) Not detected, Parainfluenza 3 (PCR) Not detected, Parainfluenza 4 (PCR) Not detected, RSV (PCR) Not detected, Entero/Rhino (PCR) Not detected 03/25/24 20:21: VBG pH 7.36, VBG pCO2 40.9, VBG pO2 42.7 H, VBG HCO3 22.6 L, VBG Total CO2 23.8, VBG O2 Saturation 75.5 H, VBG Base Excess -2.9 L, VBG Lactic Acid 3.3 H 03/25/24 21:40: Urine Color Yellow, Urine Appearance Clear, Urine pH 5.5, Ur Specific [place] 1.025, Urine Protein 2+ A, Urine Glucose (UA) Negative, Urine Ketones Negative, Urine Blood 1+ A, Urine Nitrate Negative, Urine Bilirubin 1+ A, Urine Urobilinogen 1.0, Ur Leukocyte Esterase Negative, Urine RBC 3-5, Urine WBC 3-5, Ur Squamous Epith Cells None, Urine Bacteria Trace 03/25/24 23:55: Lactate 2.0 03/26/24 01:00: APTT > 200.0 H* 03/26/24 03:00: WBC 9.6, RBC 4.96, Hgb 14.7, Hct 46.0, MCV 92.8, MCH 29.6, MCHC 31.9, RDW 14.5, Plt Count 168, MPV 9.1, Neut % (Auto) 75.1, Lymph % (Auto) 14.5, [place] % (Auto) 8.1, Eos % (Auto) 1.7, Baso % (Auto) 0.6, Neut # (Auto) 7.2, Lymph # (Auto) 1.4, [place] # (Auto) 0.8, Eos # (Auto) 0.2, Baso # (Auto) 0.1, APTT 198.4 H*, Sodium 132 L, Potassium 4.0, Chloride 99, Carbon Dioxide 24, Anion Gap 13.0, BUN 34 H, Creatinine 1.70 H, Estimated Creat Clear 48, Estimated GFR 42 L, Est GFR ( Amer) 51 L, Glucose 134 H, Calcium 9.3, Magnesium 1.6 D, Total Bilirubin 3.2 H, AST 275 H D, ALT 938 H*, Alkaline Phosphatase 211 H, Total Protein 5.8 L, Albumin 3.2 L D, Globulin 2.6, Albumin/Globulin Ratio 1.2 Medical History: Medical History (Updated 03/25/24 @ 23:42 by Jewel Martinez MD) Vitamin B12 deficiency Allergic rhinitis BPH (benign prostatic hyperplasia) Hyperlipidemia Insomnia Partial tear of right Achilles tendon Assessment and Plan Assessment and plan all Dx Assessment and Plan for all problems:: Pharmacokinetic dosing service Objective: Patient: Floor: Age: 53 yo Serum creatinine: 1.7 mg/dL Height: 66.9 Inches Weight (kg): 68.04 Assessment: IBW (kg): 65.87 Dosing wt(kg): 68.04 Estimated Creatinine clearance (ml/min): 46.8 CRCL method: Cockcroft and Gault using ibw(default). Drug selected: Vancomycin Loading dose (mg): 0 Vd (liters): 54.4 (factor used: 0.8 L/kg) Raul (hr-1): 0.043 Half life (hrs): 16.12 Recommended dose: 1250 mg Interval: 24 hrs Infusion time (hrs): 2.0 Predicted peak (mcg/mL): 34.2 Predicted trough (mcg/mL): 13.28 Total body weight is being used for vancomycin dosing. Recommendations: Give Vancomycin 1250 mg q 24 hrs with an expected Cpeak of 34.2 mcg/ml and an expected Ctrough of 13.28 mcg/ml ----Vanco only - ignore for aminoglycosides----- CLvanco= 2.34 L/hr AUC 0-24 /RIKA Data: RIKA 0.5 mcg/mL: AUC/RIKA: 1068.4 RIKA 1.0 mcg/mL: AUC/RIKA: 534.2 --------- RIKA 1.5 mcg/mL: AUC/RIKA: 356.1 RIKA 2.0 mcg/mL: AUC/RIKA: 267.1
--- NOTE | 2024-03-26 09:06 | HMH.PHAHEP ---
[facility] Pharmacy Heparin Dosing Demographic Data Admission date:: 03/26/24 Date: 03/26/24 Time: 09:06 Allergies Allergy/AdvReac Type Severity Reaction Status Date / Time diclofenac (DICLOFENAC) Allergy Unknown Verified 08/12/21 13:08 Penicillins (PENICILLINS) Allergy Unknown Verified 08/12/21 13:08 propoxyphene (PROPOXYPHENE) Allergy Unknown Verified 08/12/21 13:08 tramadol (TRAMADOL) Allergy Unknown Verified 08/12/21 13:08 Height: 1.7 m Weight: 68 kg Indication Medication therapy:: Heparin Current Indications:: left ventricular thrombus; right atria thrombus Current Active Problems (Updated 03/27/24 @ 14:17 by ANNIE Lagos) Paralytic ileus of small intestine and colon (Acute) Severe left ventricular systolic dysfunction (LVSD) (Acute) Non-STEMI (non-ST elevated myocardial infarction) (Acute) Acute HFrEF (heart failure with reduced ejection fraction) (Acute) Pneumonia (Acute) Pleural effusion, bilateral (Acute) Cardiogenic shock (Acute) Acute hypoxemic respiratory failure (Acute) LV (left ventricular) mural thrombus (Acute) Anasarca (Acute) Acute decompensated heart failure (Acute) RENAY (acute kidney injury) (Acute) Transaminitis (Acute) Hyperlipidemia (Chronic) CVA?: Yes Bleeding problem?: Yes Kidney disease?: Yes [place]?: No Desired PTT range:: 50-75 seconds Labs Anticoagulation Lab Results:: 03/25/24 03/26/24 19:05 03:00 Hgb 14.9 14.7 Hct 47.5 46.0 Plt Count 166 168 Monitoring Dose Monitor 1: Date: 03/25/24 Time: 19:05 PTT Result:: 29.6 Infusion Rate:: 5500 unit bolus; then 1200 units/hr (24 ml/hr) Dose Monitor 2: Date: 03/26/24 Time: 01:00 PTT Result:: >200 Infusion Rate:: Rate was decreased to 1000 units/hr (20 mL/hr) Dose Monitor 3: Date: 03/26/24 Time: 03:00 PTT Result:: 198.4 Infusion Rate:: Rate was decreased to 800 units/hr (16 mL/hr) Dose Monitor 4: Date: 03/26/24 Time: 05:24 PTT Result:: 70.0 Infusion Rate:: Rate continued at 800 units/hr (16 mL/hr) Dose Monitor 5: Date: 03/26/24 Time: 09:00 PTT Result:: 64.7 Infusion Rate:: CONTINUE WITH HEPARIN 800 UNITS/HR Dose Monitor 6: Date: 03/26/24 Time: 13:00 PTT Result:: INCREASE TO HEPARIN 900 UNITS/HR PTT IS STEADILY FALLING. Dose Monitor 7: Date: 03/26/24 Time: 18:00 PTT Result:: HEPARIN RATE INCREASED TO 940 UNIT/HR AND REBOLUSED WITH 3000 UNITS. Dose Monitor 8: Date: 03/27/24 Time: 02:20 PTT Result:: 73.4 Infusion Rate:: CONTINUE WITH HEPARIN 940 UNITS/HR Dose Monitor 9: Date: 03/27/24 Time: 08:00 PTT Result:: 61.2 Infusion Rate:: CONTINUE WITH HEPARIN 940 UNITS/HR Dose Monitor 10: Date: 03/27/24 Time: 14:00 PTT Result:: 63.5 Infusion Rate:: CONTINUE WITH HEPARIN 940 UNITS/HR Dose Monitor 11: Date: 03/28/24 Time: 06:00 PTT Result:: 60.7 Infusion Rate:: CONTINUE WITH HEPARIN 940 UNITS/HR Dose Monitor 12: Date: 03/29/24 Time: 06:00 PTT Result:: 106.8 Infusion Rate:: RATE WAS DECREASED TO 700 UNITS/HR Core Measures Is INR > or = 2 at discharge?: No Most Recent Labs:: Laboratory Results - last 24 hr 03/25/24 19:05: WBC 10.2, RBC 5.04, Hgb 14.9, Hct 47.5, MCV 94.3 H, MCH 29.6, MCHC 31.4 L, RDW 14.3, Plt Count 166, MPV 9.2, Neut % (Auto) 75.7, Lymph % (Auto) 12.2, [place] % (Auto) 9.8 H, Eos % (Auto) 1.7, Baso % (Auto) 0.5, Neut # (Auto) 7.7, Lymph # (Auto) 1.3, [place] # (Auto) 1.0, Eos # (Auto) 0.2, Baso # (Auto) 0.1, PT 15.6 H, INR 1.44 H, APTT 29.6, D-Dimer 4.78 H, Sodium 132 L, Potassium 4.6, Chloride 98, Carbon Dioxide 25, Anion Gap 13.6, BUN 31 H, Creatinine 1.80 H, Estimated Creat Clear 46, Estimated GFR 40 L, Est GFR ( Amer) 48 L, Glucose 129 H, Lactate 3.4 H, Calcium 9.5, Phosphorus 4.0, Magnesium 1.9, Total Bilirubin 3.1 H, AST 416 H*, ALT 1078 H*, Alkaline Phosphatase 229 H, Troponin I 0.36 H, C-Reactive Protein 61.5 H, NT-Pro-B Natriuret Pep 7840 H, Total Protein 6.3, Albumin 3.6, Globulin 2.7, Albumin/Globulin Ratio 1.3, Lipase 270, Procalcitonin 0.406, TSH 4.60, Thyroxine (T4) 7.2, Plasma/Serum Alcohol < 10 03/25/24 19:12: VBG pH 7.35, VBG pCO2 45.1, VBG pO2 31.0, VBG HCO3 24.3, VBG Total CO2 25.7, VBG O2 Saturation 53.9, VBG Base Excess -1.3, VBG Lactic Acid 4.2 H 03/25/24 19:17: Chlamy pneumoniae PCR Not detected, Adenovirus (PCR) Not detected, B. pertussis DNA (PCR) Not detected, Coronavirus OC43 (PCR) Not detected, Coronavirus HKU1 (PCR) Not detected, Coronavirus 229E (PCR) Not detected, SARS-CoV-2 (PCR) Not detected 03/25/24 19:17: SARS-CoV-2 (PCR) Not detected, Coronavirus NL63 (PCR) Not detected, Human Metapneumovir PCR Not detected, Influenza A (H1) PCR Not detected, Influ A (H1N1/09) PCR Not detected, Influenza A (H3) PCR Not detected, Influenza Type A (PCR) Not detected, Influenza A Untype (PCR) Not detected, Influenza Type B (PCR) Not detected 03/25/24 19:17: Influenza Type B (PCR) Not detected, M. pneumoniae (PCR) Not detected, Parainfluenza 1 (PCR) Not detected, Parainfluenza 2 (PCR) Not detected, Parainfluenza 3 (PCR) Not detected, Parainfluenza 4 (PCR) Not detected, RSV (PCR) Not detected, Entero/Rhino (PCR) Not detected 03/25/24 20:21: VBG pH 7.36, VBG pCO2 40.9, VBG pO2 42.7 H, VBG HCO3 22.6 L, VBG Total CO2 23.8, VBG O2 Saturation 75.5 H, VBG Base Excess -2.9 L, VBG Lactic Acid 3.3 H 03/25/24 21:40: Urine Color Yellow, Urine Appearance Clear, Urine pH 5.5, Ur Specific [place] 1.025, Urine Protein 2+ A, Urine Glucose (UA) Negative, Urine Ketones Negative, Urine Blood 1+ A, Urine Nitrate Negative, Urine Bilirubin 1+ A, Urine Urobilinogen 1.0, Ur Leukocyte Esterase Negative, Urine RBC 3-5, Urine WBC 3-5, Ur Squamous Epith Cells None, Urine Bacteria Trace 03/25/24 23:55: Lactate 2.0 03/26/24 01:00: APTT > 200.0 H* 03/26/24 03:00: WBC 9.6, RBC 4.96, Hgb 14.7, Hct 46.0, MCV 92.8, MCH 29.6, MCHC 31.9, RDW 14.5, Plt Count 168, MPV 9.1, Neut % (Auto) 75.1, Lymph % (Auto) 14.5, [place] % (Auto) 8.1, Eos % (Auto) 1.7, Baso % (Auto) 0.6, Neut # (Auto) 7.2, Lymph # (Auto) 1.4, [place] # (Auto) 0.8, Eos # (Auto) 0.2, Baso # (Auto) 0.1, APTT 198.4 H*, Sodium 132 L, Potassium 4.0, Chloride 99, Carbon Dioxide 24, Anion Gap 13.0, BUN 34 H, Creatinine 1.70 H, Estimated Creat Clear 48, Estimated GFR 42 L, Est GFR ( Amer) 51 L, Glucose 134 H, Calcium 9.3, Magnesium 1.6 D, Total Bilirubin 3.2 H, AST 275 H D, ALT 938 H*, Alkaline Phosphatase 211 H, Total Protein 5.8 L, Albumin 3.2 L D, Globulin 2.6, Albumin/Globulin Ratio 1.2 03/26/24 05:24: APTT 70.0 If INR was < than 2.0 why was therapy stopped?: ELIQUIS STARTED Were Heparin and Warfarin started on the same day?: No If not, why?: ELIQUIS STARTED
[2024-03-26] MEDS: DEFINITY US ECHO CONTRAST 2ML INJ 2 MG IV (09:11)
[2024-03-26 09:53] LABS: PTT Heparin (inpatient only) 64.7 Seconds (50-75)
[2024-03-26] MEDS: MAGNESIUM SULFATE IN WATER 2 GM/50 ML PIGGYBACK IV ×2 (10:35→12:26)
--- NOTE | 2024-03-26 11:06 | P.PN_ITS ---
Subjective *Date: 03/26/24 *Time: 19:32 Interval history: Patient weaned to room air by morning. Diuresing aggressively. -7.5 L by morning rounds. Afebrile. No nausea or vomiting. Denies any chest pain. Shortness of breath improving. Cardiology to evaluate today. Complaining of some cramps in his legs. Medical Exam Vital signs and Labs for Last 24 Hours: Vital Signs Temp Pulse Pulse Resp BP BP BP 03/26/24 10:00 87 20 124/81 03/26/24 09:37 03/26/24 09:00 110 H 24 119/84 03/26/24 08:30 110 H 03/26/24 08:00 97.6 F 03/26/24 08:00 109 H 20 125/83 03/26/24 07:00 03/26/24 07:00 109 H 15 120/81 03/26/24 06:00 114 H 20 125/80 03/26/24 05:04 110 H 03/26/24 05:00 111 H 32 H 129/83 03/26/24 04:00 98.3 F 115 H 15 149/85 H 03/26/24 03:00 112 H 22 108/71 L 03/26/24 03:00 03/26/24 02:00 112 H 13 126/79 03/26/24 01:00 03/26/24 01:00 113 H 13 109/50 L 03/26/24 00:00 98.3 F 03/26/24 00:00 117 H 03/26/24 00:00 117 H 14 125/74 03/25/24 23:00 98.6 F 116 H 26 H 122/101 H 03/25/24 22:41 98.9 F 119 H 15 125/92 H 03/25/24 18:47 99 F 128 H 26 H 136/96 H Pulse Ox O2 Del Method O2 Flow Rate 03/26/24 10:00 98 Room Air 03/26/24 09:37 Room Air 03/26/24 09:00 96 Room Air 03/26/24 08:30 94 L Room Air 03/26/24 08:00 03/26/24 08:00 97 Room Air 03/26/24 07:00 Room Air 03/26/24 07:00 95 Room Air 03/26/24 06:00 98 Room Air 03/26/24 05:04 03/26/24 05:00 96 Room Air 03/26/24 04:00 98 Room Air 03/26/24 03:00 99 Room Air 03/26/24 03:00 Room Air 03/26/24 02:00 98 Room Air 03/26/24 01:00 Room Air 03/26/24 01:00 97 Room Air 03/26/24 00:00 03/26/24 00:00 03/26/24 00:00 98 Room Air 03/25/24 23:00 95 Room Air 03/25/24 22:41 Room Air 03/25/24 18:47 97 Nasal Cannula 3 Intake and Output 03/25/24 03/26/24 03/26/24 23:59 07:59 15:59 Intake Total 633 / 691.1 58.1 / 691.1 Output Total 6025 / 8125 2100 / 8125 Balance -5392 / -7433.9 -2041.9 / -7433.9 Intake: Intake, Total IV Amount 633 / 691.1 58.1 / 691.1 Bumetanide 10 mg In 0.9 % 48 / 48 Sodium Chloride 60 ml @ 5 mls/ hr IV .[facility] Rx#:[id number] Cefepime HCl 1 gm In 0.9 % 50 / 50 Sodium Chloride 50 ml @ 100 mls /hr IV Q12H [facility] Rx#:[id number] Heparin Sodium,Porcine/D5w 500 211 / 257 46 / 257 ml @ 800 UNITS/HR 16 mls/hr IV .Q25[facility] Rx#:[id number] Milrinone Lactate 20 mg In 0.9 24 / 24 % Sodium Chloride 80 ml @ 0.125 MCG/KG/MIN 2.551 mls/hr IV . Q24H [facility] Rx#:[id number] Vancomycin/Water For Inj (Peg) 300 / 300 1.5 gm In 300 ml @ 150 mls/hr IV ONCE ONE Rx#:[id number] Output: Output, Urine Amount 2100 / 2100 Output, Urine Amount (Catheter) 6025 / 6025 [place] 6025 / 6025 Other: Number of Unmeasured Voids 0 Weight 68.039 kg 68.039 kg 68 kg Patient Weight 03/26/24 23:59 Weight 68 kg Laboratory Results - last 24 hr 03/25/24 19:05: WBC 10.2, RBC 5.04, Hgb 14.9, Hct 47.5, MCV 94.3 H, MCH 29.6, MCHC 31.4 L, RDW 14.3, Plt Count 166, MPV 9.2, Neut % (Auto) 75.7, Lymph % (Auto) 12.2, [place] % (Auto) 9.8 H, Eos % (Auto) 1.7, Baso % (Auto) 0.5, Neut # (Auto) 7.7, Lymph # (Auto) 1.3, [place] # (Auto) 1.0, Eos # (Auto) 0.2, Baso # (Auto) 0.1, PT 15.6 H, INR 1.44 H, APTT 29.6, D-Dimer 4.78 H, Sodium 132 L, Potassium 4.6, Chloride 98, Carbon Dioxide 25, Anion Gap 13.6, BUN 31 H, Creatinine 1.80 H, Estimated Creat Clear 46, Estimated GFR 40 L, Est GFR ( Amer) 48 L, Glucose 129 H, Lactate 3.4 H, Calcium 9.5, Phosphorus 4.0, Magnesium 1.9, Total Bilirubin 3.1 H, AST 416 H*, ALT 1078 H*, Alkaline Phosphatase 229 H, Troponin I 0.36 H, C-Reactive Protein 61.5 H, NT-Pro-B Natriuret Pep 7840 H, Total Protein 6.3, Albumin 3.6, Globulin 2.7, Albumin/Globulin Ratio 1.3, Lipase 270, Procalcitonin 0.406, TSH 4.60, Thyroxine (T4) 7.2, Plasma/Serum Alcohol < 10 03/25/24 19:12: VBG pH 7.35, VBG pCO2 45.1, VBG pO2 31.0, VBG HCO3 24.3, VBG Total CO2 25.7, VBG O2 Saturation 53.9, VBG Base Excess -1.3, VBG Lactic Acid 4.2 H 03/25/24 19:17: Chlamy pneumoniae PCR Not detected, Adenovirus (PCR) Not detected, B. pertussis DNA (PCR) Not detected, Coronavirus OC43 (PCR) Not detected, Coronavirus HKU1 (PCR) Not detected, Coronavirus 229E (PCR) Not detected, SARS-CoV-2 (PCR) Not detected 03/25/24 19:17: SARS-CoV-2 (PCR) Not detected, Coronavirus NL63 (PCR) Not detected, Human Metapneumovir PCR Not detected, Influenza A (H1) PCR Not detected, Influ A (H1N1/09) PCR Not detected, Influenza A (H3) PCR Not detected, Influenza Type A (PCR) Not detected, Influenza A Untype (PCR) Not detected, Influenza Type B (PCR) Not detected 03/25/24 19:17: Influenza Type B (PCR) Not detected, M. pneumoniae (PCR) Not detected, Parainfluenza 1 (PCR) Not detected, Parainfluenza 2 (PCR) Not detected, Parainfluenza 3 (PCR) Not detected, Parainfluenza 4 (PCR) Not detected, RSV (PCR) Not detected, Entero/Rhino (PCR) Not detected 03/25/24 20:21: VBG pH 7.36, VBG pCO2 40.9, VBG pO2 42.7 H, VBG HCO3 22.6 L, VBG Total CO2 23.8, VBG O2 Saturation 75.5 H, VBG Base Excess -2.9 L, VBG Lactic Acid 3.3 H 03/25/24 21:40: Urine Color Yellow, Urine Appearance Clear, Urine pH 5.5, Ur Specific [place] 1.025, Urine Protein 2+ A, Urine Glucose (UA) Negative, Urine Ketones Negative, Urine Blood 1+ A, Urine Nitrate Negative, Urine Bilirubin 1+ A , Urine Urobilinogen 1.0, Ur Leukocyte Esterase Negative, Urine RBC 3-5, Urine WBC 3-5, Ur Squamous Epith Cells None, Urine Bacteria Trace 03/25/24 23:55: Lactate 2.0 03/26/24 01:00: APTT > 200.0 H* 03/26/24 03:00: WBC 9.6, RBC 4.96, Hgb 14.7, Hct 46.0, MCV 92.8, MCH 29.6, MCHC 31.9, RDW 14.5, Plt Count 168, MPV 9.1, Neut % (Auto) 75.1, Lymph % (Auto) 14.5, [place] % (Auto) 8.1, Eos % (Auto) 1.7, Baso % (Auto) 0.6, Neut # (Auto) 7.2, Lymph # (Auto) 1.4, [place] # (Auto) 0.8, Eos # (Auto) 0.2, Baso # (Auto) 0.1, APTT 198.4 H*, Sodium 132 L, Potassium 4.0, Chloride 99, Carbon Dioxide 24, Anion Gap 13.0, BUN 34 H, Creatinine 1.70 H, Estimated Creat Clear 48, Estimated GFR 42 L, Est GFR ( Amer) 51 L, Glucose 134 H, Calcium 9.3, Magnesium 1.6 D, Total Bilirubin 3.2 H, AST 275 H D, ALT 938 H*, Alkaline Phosphatase 211 H, Total Protein 5.8 L, Albumin 3.2 L D, Globulin 2.6, Albumin/Globulin Ratio 1.2 03/26/24 05:24: APTT 70.0 03/26/24 09:35: APTT 64.7 I & O for Labs for Last 24 Hours: Intake & Output 03/23/24 03/24/24 03/25/24 03/26/24 23:59 23:59 23:59 23:59 Intake Total 691.1 / 691.1 Output Total 8125 / 8125 Balance -7433.9 / -7433.9 Weight 68.039 kg 68 kg Constitutional: Present mild distress, average body habitus, chronically ill appearing and cooperative Head: Present atraumatic and normocephalic ENT: Present normal exam Respiratory: Present crackles (bases) and normal respiratory effort; Absent rh onchi or wheezes Cardiac: Present Regular Rhythm and Tachycardia GI: Present soft and normal bowel sounds; Absent distention or tenderness Extremities: Present normal inspection, full ROM and edema (2+ to thighs) Skin: Present intact; Absent erythema Neuro: Present Grossly Intact, alert, awake, oriented x 3 and moves all extremities Assessment and Plan *Assessment and plan (1) Cardiogenic shock: Status: Acute Category: Medical Code(s): R57.0 - Cardiogenic shock (2) Acute decompensated heart failure: Status: Acute Category: Medical Code(s): I50.9 - Heart failure, unspecified (3) LV (left ventricular) mural thrombus: Status: Acute Category: Medical Code(s): I51.3 - Intracardiac thrombosis, not elsewhere classified (4) Transaminitis: Status: Acute Category: Medical Code(s): R74.01 - Elevation of levels of liver transaminase levels (5) RENAY (acute kidney injury): Status: Acute Category: Medical Code(s): N17.9 - Acute kidney failure, unspecified (6) Anasarca: Status: Acute Category: Medical Code(s): R60.1 - Generalized edema (7) Acute hypoxemic respiratory failure: Status: Acute Category: Medical Code(s): J96.01 - Acute respiratory failure with hypoxia Plan 53-year-old with past medical history of B12 deficiency, hypertension, BPH, back surgery. Patient has not visited PCP in several years and presents with generalized swelling, SOB, hypoxia initially on BiPAP in emergency room. Patient admitted for new onset CHF. CTA chest showing no PE but bilateral pleural effusions anasarca and ascites.troponin 0.36 LA 4.2-> 3.3, TSH 4.6, T4=7.2, procalcitonin 0.406, BNP 7840, AST 416, ALT 1078, alk phos 229, total bili 3.1, BUN 31, creatinine 1.8. LV thrombus noted on bedside echocardiogram in emergency room. Continues to require close monitoring. Patient critically ill. Necessitating inpatient care in the ICU. Problems as listed below: Heart failure with reduced ejection fraction Cardiogenic shock LV thrombus NSTEMI - Discussed case with cardiology, continue milrinone and Bumex for today. Patient has diuresed really well. Responding abruptly to pulling fluid. Recommend initiating Isordil 10 mg 3 times a day for vasodilation once milrinone has been stopped. -Patient does have an LV thrombus on CT and echo, continue heparin drip for now. -Consider beta-lexii for heart failure and Jardiance once patient is euvolemic and cardiogenic shock is resolved. -Plan for left heart cath in the morning to evaluate for CAD in the setting of NSTEMI -Echo obtained, preliminary read with EF less than 15-20%. Would benefit from LifeVest prior to discharge Pneumonia: Acute hypoxemic respiratory failure: - Discussed case with pulmonology, recommend continuing vancomycin and cefepime pending cultures. DuoNebs as needed every 6 hours. No need for thoracentesis at this time given significant response to diuretics and improvement in respiratory status. - Goal sats greater 90% RENAY: Probably due to shock. Will treat as noted in cardiogenic shock and anasarca sections. Kidney function remained stable BUN 34, creatinine 1.7. Repeat CMP ordered for this afternoon. Repeat CBC, CMP, magnesium ordered for the morning. Close monitoring of electrolytes with aggressive diuresis, Hypertension: ? Hydralazine 10 mg IV every 6 hours as needed SBP over 160 Transaminitis likely secondary to ischemic hepatitis: ? Possibly secondary to decreased hepatic blood flow from heart failure. Will follow transaminases. Bilirubin 3.2, AST ALT 275 and 938 respectively. Labs improving. Repeat liver function every 12 hours BPH: Finasteride 5 mg p.o. daily PPx heparin GTT FEN cardiac fluid restriction 1.5 L/day ICU/Critical care attestation This patient is critically ill with 35 minutes devoted solely to this patient managing life/organ supporting interventions that required physician assessment. This includes time spent making adjustments in ventilator settings, IV fluid administration, titration of pressors, adjustments of medications, discussion of patient with consultants and other care providers as well as updating patient and/or family (if patient by virtue of his/her condition is unable to participate in decision making). This does not include time spent performing separately billed procedures. Time is not concurrent with that of other providers.
[2024-03-26] MEDS: CEFEPIME HCL 1 GM in 0.9 % SODIUM CHLORIDE 50 ML IV ×2 (11:53→23:35)
[2024-03-26 13:26] LABS: PTT Heparin (inpatient only) 51.9 Seconds (50-75)
--- NOTE | 2024-03-26 13:42 | P.CONS_ITS ---
History of Present Illness History of present illness: Mr. Gonsales is a 53-year-old male never smoker, no significant prior respiratory complaint not using any oxygen supplementation or inhalers at baseline presented with ER with worsening respiratory distress bilateral lower extremity swelling found to be in heart failure exacerbation, transaminitis, bilateral pleural effusions and LV apical thrombus cardiology following, pulmonary was called for further evaluation and management. [facility] Disclaimer: The information contained in this section may have been updated after the patient was seen, as this information can be updated by other users. Medical History (Updated 03/26/24 @ 13:45 by Adali Ca MD) Pneumonia Pleural effusion, bilateral Vitamin B12 deficiency Allergic rhinitis BPH (benign prostatic hyperplasia) Hyperlipidemia Insomnia Partial tear of right Achilles tendon Social History Smoking Status: Never smoker alcohol intake: never substance use type: former substance user and heroin current occupational status: unemployed Travel in the last 8 weeks: None Have you lived/traveled outside [place] in past 30 days?: No Contact w/someone who lives/traveled outside [place] past 30 days?: No Exposure to someone with infectious disease in past 14 days?: No Do you have a fever (greater than 100.4 F or 38 C)?: No Have you tested positive for COVID-19: No Exposed to someone with COVID-19 in past 14 days?: No Do you have a sore throat?: No Do you have a cough?: No Do you have any weakness?: No Do you have any diarrhea?: No Are you experiencing any unusual bleeding?: No Do you have any muscle aches/pain?: No Do you have any abdominal pain?: No Are you experiencing loss of taste or smell?: No Review of Systems Constitutional Constitutional: Reports anorexia, Reports body ache(s) and Reports fatigue Eyes Eyes: Denies eye discharge, Denies dry eyes, Denies irritation and Denies itchy eyes ENT Ears, Nose, Mouth, and Throat: Denies epistaxis, Denies facial pain, Denies lip swelling and Denies throat swelling *Cardiovascular Cardiovascular: Reports dyspnea, Reports dyspnea on exertion, Reports leg edema, Reports orthopnea and Reports pedal edema *Respiratory Respiratory: Denies change in phlegm color, Reports cough, Reports dyspnea, Reports dyspnea on exertion, Denies excessive phlegm production and Denies wheezing *Gastrointestinal Gastrointestinal: Denies abdominal pain, Denies belching and Denies cramping *Musculoskeletal Musculoskeletal: Reports back pain, Reports myalgias and Reports other (No small joint swelling or Pain) Psychiatric Psychiatric: Denies homicidal ideation and Denies suicidal ideation Endocrine Endocrine: Reports fatigue and Denies heat intolerance Hematologic/Lymphatic Hematologic/Lymphatic: Denies easy bleeding and Denies lymphadenopathy Allergic/Immunologic Allergic/Immunologic: Denies itchy eyes, Denies lip swelling, Denies throat swelling and Denies wheezing Pulmonology Exam Inpatient Vital signs and Labs for Last 24 Hours: Temp Pulse Resp BP Pulse Ox O2 Del Method O2 Flow Rate 97.6 F 115 H 20 114/76 97 Room Air 3 03/26/24 08:00 03/26/24 12:37 03/26/24 12:00 03/26/24 12:00 03/26/24 12:37 03/26/24 12:37 03/25/24 18:47 Laboratory Results - last 24 hr 03/25/24 19:05: WBC 10.2, RBC 5.04, Hgb 14.9, Hct 47.5, MCV 94.3 H, MCH 29.6, M CHC 31.4 L, RDW 14.3, Plt Count 166, MPV 9.2, Neut % (Auto) 75.7, Lymph % (Auto) 12.2, [place] % (Auto) 9.8 H, Eos % (Auto) 1.7, Baso % (Auto) 0.5, Neut # (Auto) 7.7, Lymph # (Auto) 1.3, [place] # (Auto) 1.0, Eos # (Auto) 0.2, Baso # (Auto) 0.1, PT 15.6 H, INR 1.44 H, APTT 29.6, D-Dimer 4.78 H, Sodium 132 L, Potassium 4.6, Chloride 98, Carbon Dioxide 25, Anion Gap 13.6, BUN 31 H, Creatinine 1.80 H, Estimated Creat Clear 46, Estimated GFR 40 L, Est GFR ( Amer) 48 L, G lucose 129 H, Lactate 3.4 H, Calcium 9.5, Phosphorus 4.0, Magnesium 1.9, Total Bilirubin 3.1 H, AST 416 H*, ALT 1078 H*, Alkaline Phosphatase 229 H, Troponin I 0.36 H, C-Reactive Protein 61.5 H, NT-Pro-B Natriuret Pep 7840 H, Total Protein 6.3, Albumin 3.6, Globulin 2.7, Albumin/Globulin Ratio 1.3, Lipase 270, Procalcitonin 0.406, TSH 4.60, Thyroxine (T4) 7.2, Plasma/Serum Alcohol < 10 03/25/24 19:12: VBG pH 7.35, VBG pCO2 45.1, VBG pO2 31.0, VBG HCO3 24.3, VBG Total CO2 25.7, VBG O2 Saturation 53.9, VBG Base Excess -1.3, VBG Lactic Acid 4.2 H 03/25/24 19:17: Chlamy pneumoniae PCR Not detected, Adenovirus (PCR) Not detected, B. pertussis DNA (PCR) Not detected, Coronavirus OC43 (PCR) Not detected, Coronavirus HKU1 (PCR) Not detected, Coronavirus 229E (PCR) Not detected, SARS-CoV-2 (PCR) Not detected 03/25/24 19:17: SARS-CoV-2 (PCR) Not detected, Coronavirus NL63 (PCR) Not detected, Human Metapneumovir PCR Not detected, Influenza A (H1) PCR Not detected, Influ A (H1N1/09) PCR Not detected, Influenza A (H3) PCR Not detected, Influenza Type A (PCR) Not detected, Influenza A Untype (PCR) Not detected, Influenza Type B (PCR) Not detected 03/25/24 19:17: Influenza Type B (PCR) Not detected, M. pneumoniae (PCR) Not detected, Parainfluenza 1 (PCR) Not detected, Parainfluenza 2 (PCR) Not detected, Parainfluenza 3 (PCR) Not detected, Parainfluenza 4 (PCR) Not detected, RSV (PCR) Not detected, Entero/Rhino (PCR) Not detected 03/25/24 20:21: VBG pH 7.36, VBG pCO2 40.9, VBG pO2 42.7 H, VBG HCO3 22.6 L, VBG Total CO2 23.8, VBG O2 Saturation 75.5 H, VBG Base Excess -2.9 L, VBG Lactic Acid 3.3 H 03/25/24 21:40: Urine Color Yellow, Urine Appearance Clear, Urine pH 5.5, Ur Specific [place] 1.025, Urine Protein 2+ A, Urine Glucose (UA) Negative, Urine Ketones Negative, Urine Blood 1+ A, Urine Nitrate Negative, Urine Bilirubin 1+ A , Urine Urobilinogen 1.0, Ur Leukocyte Esterase Negative, Urine RBC 3-5, Urine WBC 3-5, Ur Squamous Epith Cells None, Urine Bacteria Trace 03/25/24 23:55: Lactate 2.0 03/26/24 01:00: APTT > 200.0 H* 03/26/24 03:00: WBC 9.6, RBC 4.96, Hgb 14.7, Hct 46.0, MCV 92.8, MCH 29.6, MCHC 31.9, RDW 14.5, Plt Count 168, MPV 9.1, Neut % (Auto) 75.1, Lymph % (Auto) 14.5, [place] % (Auto) 8.1, Eos % (Auto) 1.7, Baso % (Auto) 0.6, Neut # (Auto) 7.2, Lymph # (Auto) 1.4, [place] # (Auto) 0.8, Eos # (Auto) 0.2, Baso # (Auto) 0.1, APTT 198.4 H*, Sodium 132 L, Potassium 4.0, Chloride 99, Carbon Dioxide 24, Anion Gap 13.0, BUN 34 H, Creatinine 1.70 H, Estimated Creat Clear 48, Estimated GFR 42 L, Est GFR ( Amer) 51 L, Glucose 134 H, Calcium 9.3, Magnesium 1.6 D, Total Bilirubin 3.2 H, AST 275 H D, ALT 938 H*, Alkaline Phosphatase 211 H, Total Protein 5.8 L, Albumin 3.2 L D, Globulin 2.6, Albumin/Globulin Ratio 1.2 03/26/24 05:24: APTT 70.0 03/26/24 09:35: APTT 64.7 03/26/24 13:00: APTT 51.9 I & O for Labs for Last 24 Hours: Intake & Output 03/23/24 03/24/24 03/25/24 03/26/24 23:59 23:59 23:59 23:59 Intake Total 1080.658 / 1080.658 Output Total 9725 / 9725 Balance -8644.342 / -8644.342 Weight 150 lb 149 lb 14.629 oz Constitutional: Present mild distress Head: Present normocephalic and atraumatic ENT: Present normal exam, normal oropharynx and mucous membranes moist Neck: Present normal inspection and full ROM Respiratory: Present respiratory distress, crackles, diminished air movement and able to speak in complete sentences; Absent prolonged expiratory phase or wheezes Cardiac: Present S1/S2, Tachycardia and radial pulses present GI: Present soft and distention; Absent tenderness or guarding Skin: Present intact; Absent cyanosis or jaundice Neuro: Present alert, awake and oriented x 3 Extremities: Present normal inspection; Absent clubbing or cyanosis Psychiatric: Present normal affect and cooperative Meds Home Medications and Allergies Home Medications ?Medication ?Instructions ?Recorded ?Confirmed ?Type No Known Home Medications 03/26/24 03/26/24 History New Prescriptions to Start Prescriptions: Allergies Allergy/AdvReac Type Severity Reaction Status Date / Time diclofenac (DICLOFENAC) Allergy Unknown Verified 08/12/21 13:08 Penicillins (PENICILLINS) Allergy Unknown Verified 08/12/21 13:08 propoxyphene (PROPOXYPHENE) Allergy Unknown Verified 08/12/21 13:08 tramadol (TRAMADOL) Allergy Unknown Verified 08/12/21 13:08 Results Laboratory Findings 03/26/24 03:00 03/26/24 03:00 PT/INR, D-dimer PT 15.6 seconds (10.1-12.5) H 03/25/24 19:05 INR 1.44 (0.9-1.1) H 03/25/24 19:05 D-Dimer 4.78 ug/mL (0.0-0.5) H 03/25/24 19:05 Abnormal lab findings: Abnormal Labs 03/25/24 03/25/24 03/25/24 19:05 19:12 20:21 MCV 94.3 H MCHC 31.4 L [place] % (Auto) 9.8 H PT 15.6 H INR 1.44 H APTT D-Dimer 4.78 H VBG pO2 42.7 H VBG HCO3 22.6 L VBG O2 Saturation 75.5 H VBG Base Excess -2.9 L VBG Lactic Acid 4.2 H 3.3 H Sodium 132 L BUN 31 H Creatinine 1.80 H Estimated GFR 40 L Est GFR ( Amer) 48 L Glucose 129 H Lactate 3.4 H Total Bilirubin 3.1 H AST 416 H* ALT 1078 H* Alkaline Phosphatase 229 H Troponin I 0.36 H C-Reactive Protein 61.5 H NT-Pro-B Natriuret Pep 7840 H Total Protein Albumin Urine Protein Urine Blood Urine Bilirubin 03/25/24 03/26/24 03/26/24 21:40 01:00 03:00 MCV MCHC [place] % (Auto) PT INR APTT > 200.0 H* 198.4 H* D-Dimer VBG pO2 VBG HCO3 VBG O2 Saturation VBG Base Excess VBG Lactic Acid Sodium 132 L BUN 34 H Creatinine 1.70 H Estimated GFR 42 L Est GFR ( Amer) 51 L Glucose 134 H Lactate Total Bilirubin 3.2 H AST 275 H D ALT 938 H* Alkaline Phosphatase 211 H Troponin I C-Reactive Protein NT-Pro-B Natriuret Pep Total Protein 5.8 L Albumin 3.2 L D Urine Protein 2+ A Urine Blood 1+ A Urine Bilirubin 1+ A Assessment and Plan *Assessment and plan (1) Pleural effusion, bilateral: Status: Acute Category: Medical Code(s): J90 - Pleural effusion, not elsewhere classified (2) Pneumonia: Status: Acute Category: Medical Code(s): J18.9 - Pneumonia, unspecified organism Plan Mr. Gonsales is a 53-year-old male never smoker, no significant prior respiratory complaint not using any oxygen supplementation or inhalers at baseline presented with ER with worsening respiratory distress bilateral lower extremity swelling found to be in heart failure exacerbation, transaminitis, bilateral pleural effusions and LV apical thrombus cardiology following, pulmonary was called for further evaluation and management. Patient today on examination does not appear to be in any respiratory distress. On room air saturating 95% and above. No significant wheezing noted on auscultation. CTA upon admission bilateral pleural effusions right greater than left. Left lingular lobar pneumonia noted. CTA negative for PE Afebrile. No evidence of leukocytosis. Comprehensive respiratory viral PCR panel negative. Blood cultures pending. Transaminitis improving. Plan: Continue vancomycin and cefepime pending blood culture results and will likely wean antibiotics to cover for community-acquired pneumonia DuoNebs QID PRN No need for thoracentesis at this point of time as patient significant response to diuretic regimen and improvement in his respiratory status. Will monitor clinically.
[2024-03-26] MEDS: BUMETANIDE 10 MG in 0.9 % SODIUM CHLORIDE 60 ML 5 MG IV (13:47)
[2024-03-26] MEDS: MORPHINE 2MG/ML SYRINGE 2 MG IV ×3 (13:50→20:35)
--- NOTE | 2024-03-26 13:56 | PC.NURSE ---
heparin drip increased to 900 units per her per v/o from [facility] [id number]
--- NOTE | 2024-03-26 14:03 | EXP.CARD.CON ---
History of Present Illness History of Present Illness Consult date: 03/26/24 Requesting physician: Jace Haney Consult reason: congestive heart failure Chief complaint: SOA and edema History of present illness: This is a 53-year-old white gentleman who presented to the emergency department with complaints of shortness of breath and swelling. The patient states that he is not seen a primary care provider in several years. Over the last week or so he has been having worsening shortness of breath and generalized swelling. The patient states that over the last several days his symptoms significantly worsen. His shortness of breath was severe and he was unable to to perform any activities at home. He states that he does have a dry nonproductive cough associated with the shortness of breath. He states that he had tightness in his chest as well because he was so short of breath. The patient states that he felt some abdominal distention and nausea. He had no vomiting. He states that he has been very clammy and was having difficulty walking because of his significant symptoms. He denies any fever, chills, vomiting, diarrhea. His shortness of breath is associated with PND and orthopnea as well. Upon arrival to the emergency department the patient was hypoxic and had to be placed on a BiPAP. He does have anasarca and ascites. CT showed an LV thrombus as well as a bedside echocardiogram. The CT of the chest also showed a right atrial thrombus which was not noted on echocardiogram. The patient was started on a milrinone drip and Bumex drip and has had significant output since that time. He states that his symptoms have significantly improved and he is feeling much better. [facility] Disclaimer: The information contained in this section may have been updated after the patient was seen, as this information can be updated by other users. Medical History (Updated 03/26/24 @ 14:15 by Valentina Rios APRN) Severe left ventricular systolic dysfunction (LVSD) Transaminitis RENAY (acute kidney injury) Anasarca LV (left ventricular) mural thrombus Acute hypoxemic respiratory failure Cardiogenic shock Non-STEMI (non-ST elevated myocardial infarction) Acute HFrEF (heart failure with reduced ejection fraction) Pneumonia Pleural effusion, bilateral Vitamin B12 deficiency Allergic rhinitis BPH (benign prostatic hyperplasia) Hyperlipidemia Insomnia Partial tear of right Achilles tendon Social History Smoking Status: Never smoker alcohol intake: never substance use type: former substance user and heroin current occupational status: unemployed Travel in the last 8 weeks: None Have you lived/traveled outside [place] in past 30 days?: No Contact w/someone who lives/traveled outside [place] past 30 days?: No Exposure to someone with infectious disease in past 14 days?: No Do you have a fever (greater than 100.4 F or 38 C)?: No Have you tested positive for COVID-19: No Exposed to someone with COVID-19 in past 14 days?: No Do you have a sore throat?: No Do you have a cough?: No Do you have any weakness?: No Do you have any diarrhea?: No Are you experiencing any unusual bleeding?: No Do you have any muscle aches/pain?: No Do you have any abdominal pain?: No Are you experiencing loss of taste or smell?: No Review of Systems Review of Systems Review of systems:: pertinent systems reviewed and negative unless documented below Constitutional Constitutional: Reports system reviewed and no additional complaints, except as documented, Reports fatigue, Reports poor appetite, Reports lethargy, Reports malaise and Reports weakness Eyes Eyes: Reports system reviewed and no additional complaints, except as documented ENT Ears, Nose, Mouth, and Throat: Reports system reviewed and no additional complaints, except as documented *Cardiovascular Cardiovascular: Reports system reviewed and no additional complaints, except as documented, Reports chest pain, Reports chest pain at rest, Reports chest pain with activity, Reports dyspnea, Reports dyspnea on exertion, Reports edema, Reports leg edema, Reports orthopnea and Reports pedal edema *Respiratory Respiratory: Reports system reviewed and no additional complaints, except as documented, Reports cough, Reports dyspnea and Reports dyspnea on exertion *Gastrointestinal Gastrointestinal: Reports system reviewed and no additional complaints, except as documented, Reports bloating and Reports nausea *Genitourinary Genitourinary: Reports system reviewed and no additional complaints, except as documented *Musculoskeletal Musculoskeletal: Reports system reviewed and no additional complaints, except as documented Integumentary/Breasts Skin/Breast: Reports system reviewed and no additional complaints, except as documented *Neurologic Neurologic: Reports system reviewed and no additional complaints, except as documented and Reports weakness Psychiatric Psychiatric: Reports system reviewed and no additional complaints, except as documented Endocrine Endocrine: Reports system reviewed and no additional complaints, except as documented and Reports fatigue Hematologic/Lymphatic Hematologic/Lymphatic: Reports system reviewed and no additional complaints, except as documented Allergic/Immunologic Allergic/Immunologic: Reports system reviewed and no additional complaints, except as documented Exam Data for Last 24 hours Vital signs and Labs for Last 24 Hours: Temp Pulse Resp BP Pulse Ox O2 Del Method O2 Flow Rate 97.6 F 114 H 16 132/73 95 Room Air 3 03/26/24 08:00 03/26/24 13:51 03/26/24 13:51 03/26/24 13:51 03/26/24 13:51 03/26/24 13:51 03/25/24 18:47 Laboratory Results - last 24 hr 03/25/24 19:05: WBC 10.2, RBC 5.04, Hgb 14.9, Hct 47.5, MCV 94.3 H, MCH 29.6, MCHC 31.4 L, RDW 14.3, Plt Count 166, MPV 9.2, Neut % (Auto) 75.7, Lymph % (Auto) 12.2, [place] % (Auto) 9.8 H, Eos % (Auto) 1.7, Baso % (Auto) 0.5, Neut # (Auto) 7.7, Lymph # (Auto) 1.3, [place] # (Auto) 1.0, Eos # (Auto) 0.2, Baso # (Auto) 0.1, PT 15.6 H, INR 1.44 H, APTT 29.6, D-Dimer 4.78 H, Sodium 132 L, Potassium 4.6, Chloride 98, Carbon Dioxide 25, Anion Gap 13.6, BUN 31 H, Creatinine 1.80 H, Estimated Creat Clear 46, Estimated GFR 40 L, Est GFR ( Amer) 48 L, Glucose 129 H, Lactate 3.4 H, Calcium 9.5, Phosphorus 4.0, Magnesium 1.9, Total Bilirubin 3.1 H, AST 416 H*, ALT 1078 H*, Alkaline Phosphatase 229 H, Troponin I 0.36 H, C-Reactive Protein 61.5 H, NT-Pro-B Natriuret Pep 7840 H, Total Protein 6.3, Albumin 3.6, Globulin 2.7, Albumin/Globulin Ratio 1.3, Lipase 270, Procalcitonin 0.406, TSH 4.60, Thyroxine (T4) 7.2, Plasma/Serum Alcohol < 10 03/25/24 19:12: VBG pH 7.35, VBG pCO2 45.1, VBG pO2 31.0, VBG HCO3 24.3, VBG Total CO2 25.7, VBG O2 Saturation 53.9, VBG Base Excess -1.3, VBG Lactic Acid 4.2 H 03/25/24 19:17: Chlamy pneumoniae PCR Not detected, Adenovirus (PCR) Not detected, B. pertussis DNA (PCR) Not detected, Coronavirus OC43 (PCR) Not detected, Coronavirus HKU1 (PCR) Not detected, Coronavirus 229E (PCR) Not detected, SARS-CoV-2 (PCR) Not detected 03/25/24 19:17: SARS-CoV-2 (PCR) Not detected, Coronavirus NL63 (PCR) Not detected, Human Metapneumovir PCR Not detected, Influenza A (H1) PCR Not detected, Influ A (H1N1/09) PCR Not detected, Influenza A (H3) PCR Not detected, Influenza Type A (PCR) Not detected, Influenza A Untype (PCR) Not detected, Influenza Type B (PCR) Not detected 03/25/24 19:17: Influenza Type B (PCR) Not detected, M. pneumoniae (PCR) Not detected, Parainfluenza 1 (PCR) Not detected, Parainfluenza 2 (PCR) Not detected, Parainfluenza 3 (PCR) Not detected, Parainfluenza 4 (PCR) Not detected, RSV (PCR) Not detected, Entero/Rhino (PCR) Not detected 03/25/24 20:21: VBG pH 7.36, VBG pCO2 40.9, VBG pO2 42.7 H, VBG HCO3 22.6 L, VBG Total CO2 23.8, VBG O2 Saturation 75.5 H, VBG Base Excess -2.9 L, VBG Lactic Acid 3.3 H 03/25/24 21:40: Urine Color Yellow, Urine Appearance Clear, Urine pH 5.5, Ur Specific [place] 1.025, Urine Protein 2+ A, Urine Glucose (UA) Negative, Urine Ketones Negative, Urine Blood 1+ A, Urine Nitrate Negative, Urine Bilirubin 1+ A, Urine Urobilinogen 1.0, Ur Leukocyte Esterase Negative, Urine RBC 3-5, Urine WBC 3-5, Ur Squamous Epith Cells None, Urine Bacteria Trace 03/25/24 23:55: Lactate 2.0 03/26/24 01:00: APTT > 200.0 H* 03/26/24 03:00: WBC 9.6, RBC 4.96, Hgb 14.7, Hct 46.0, MCV 92.8, MCH 29.6, MCHC 31.9, RDW 14.5, Plt Count 168, MPV 9.1, Neut % (Auto) 75.1, Lymph % (Auto) 14.5, [place] % (Auto) 8.1, Eos % (Auto) 1.7, Baso % (Auto) 0.6, Neut # (Auto) 7.2, Lymph # (Auto) 1.4, [place] # (Auto) 0.8, Eos # (Auto) 0.2, Baso # (Auto) 0.1, APTT 198.4 H*, Sodium 132 L, Potassium 4.0, Chloride 99, Carbon Dioxide 24, Anion Gap 13.0, BUN 34 H, Creatinine 1.70 H, Estimated Creat Clear 48, Estimated GFR 42 L, Est GFR ( Amer) 51 L, Glucose 134 H, Calcium 9.3, Magnesium 1.6 D, Total Bilirubin 3.2 H, AST 275 H D, ALT 938 H*, Alkaline Phosphatase 211 H, Total Protein 5.8 L, Albumin 3.2 L D, Globulin 2.6, Albumin/Globulin Ratio 1.2 03/26/24 05:24: APTT 70.0 03/26/24 09:35: APTT 64.7 03/26/24 13:00: APTT 51.9 I & O for Last 24 hours: Intake & Output 03/23/24 03/24/24 03/25/24 03/26/24 23:59 23:59 23:59 23:59 Intake Total 1089.801 / 1089.801 Output Total 9725 / 9725 Balance -8635.199 / -8635.199 Weight 150 lb 149 lb 14.629 oz Narrative: Echocardiogram shows: Severe reduction in global LV systolic function (LVEF 20%). Septal, anteroseptal, and inferior septal LV rivera are akinetic. The LV apex is also akinetic. Grade 2 diastolic dysfunction is present. There is a large echodensity in the LV apex. Administration of ultrasound enhancing agent demonstrates filling defect, measuring 3.5 cm x 2.5 cm, suggestive of presence of large apical thrombus. Mild RV dilation with severe reduction in RV function. Biatrial dilation. Mild MR, mild TR. Pleural effusion. Ascites. Of note, the right atrial thrombus noted on the CTA chest is not visualized in this study. The above findings were related to the inpatient cardiology consult team at the time of image acquisition. CTA of the chest shows: 1. Large lingular alveolar infiltrate. 2. No CTA evidence of pulmonary embolus. 3. Large left ventricular apical thrombus. 4. Small right atrial thrombus 13 mm. 5. Anasarca. 6. Bilateral pleural effusions. 7. Ascites. CT of the abdomen shows: 1. Right atrial thrombus. 2. Left ventricular apical thrombus quite large 3.4 cm. Recommend cardiology consultation. 3. Ascites. Anasarca. 4. Prior fusion L3-L4 and L4-L5. Constitutional Constitutional: no acute distress, average body habitus and chronically ill appearing *Routine HEENT Exam Head: Present normocephalic and atraumatic ENT: Present mucous membranes moist *Routine Neck Exam Neck: Present supple, full ROM and normal carotid upstroke; Absent JVD, carotid bruit or lymphadenopathy *Routine Respiratory Exam Respiratory: Present CTA bilaterally, normal respiratory effort, able to speak in complete sentences and symmetric chest movement *Routine Cardiovascular Exam Cardiovascular: Present RRR, Normal S1, Normal S2 and murmur; Absent gallop *Routine Abdominal Exam Abdominal: Present soft and normoactive bowel sounds; Absent tenderness, distended or organomegaly *Routine Extremities Exam Extremities: Present full ROM, pulses intact and normal capillary refill; Absent cyanosis, clubbing or edema *Routine Skin Exam Skin: Present intact and warm; Absent erythema *Routine Neurological Exam Neurological: Present alert, oriented X3 and CN II-XII intact; Absent sensory deficit or motor deficit Routine Psychiatric Exam Psychiatric: Present normal affect Meds Home Medications and Allergies Home Medications ?Medication ?Instructions ?Recorded ?Confirmed ?Type No Known Home Medications 03/26/24 03/26/24 History New Prescriptions to Start Prescriptions: Allergies Allergy/AdvReac Type Severity Reaction Status Date / Time diclofenac (DICLOFENAC) Allergy Unknown Verified 08/12/21 13:08 Penicillins (PENICILLINS) Allergy Unknown Verified 08/12/21 13:08 propoxyphene (PROPOXYPHENE) Allergy Unknown Verified 08/12/21 13:08 tramadol (TRAMADOL) Allergy Unknown Verified 08/12/21 13:08 Assessment and Plan *Assessment and plan (1) Cardiogenic shock: Status: Acute Category: Medical Code(s): R57.0 - Cardiogenic shock (2) Pleural effusion, bilateral: Status: Acute Category: Medical Code(s): J90 - Pleural effusion, not elsewhere classified (3) Acute HFrEF (heart failure with reduced ejection fraction): Status: Acute Category: Medical Code(s): I50.21 - Acute systolic (congestive) heart failure (4) Pneumonia: Status: Acute Qualifiers: Laterality: unspecified laterality Lung location: unspecified part of lung Pneumonia type: due to unspecified organism Qualified Code(s): J18.9 - Pneumonia, unspecified organism Category: Medical Code(s): J18.9 - Pneumonia, unspecified organism (5) LV (left ventricular) mural thrombus: Status: Acute Category: Medical Code(s): I51.3 - Intracardiac thrombosis, not elsewhere classified (6) Acute hypoxemic respiratory failure: Status: Acute Category: Medical Code(s): J96.01 - Acute respiratory failure with hypoxia (7) RENAY (acute kidney injury): Status: Acute Category: Medical Code(s): N17.9 - Acute kidney failure, unspecified (8) Transaminitis: Status: Acute Category: Medical Code(s): R74.01 - Elevation of levels of liver transaminase levels (9) Hyperlipidemia: Status: Chronic Qualifiers: Hyperlipidemia type: unspecified Qualified Code(s): E78.5 - Hyperlipidemia, unspecified Category: Medical Code(s): E78.5 - Hyperlipidemia, unspecified (10) Non-STEMI (non-ST elevated myocardial infarction): Status: Acute Category: Medical Code(s): I21.4 - Non-ST elevation (NSTEMI) myocardial infarction (11) Anasarca: Status: Acute Category: Medical Code(s): R60.1 - Generalized edema (12) Severe left ventricular systolic dysfunction (LVSD): Status: Acute Category: Medical Code(s): I51.89 - Other ill-defined heart diseases Plan Plan: 1. This is a 53-year-old gentleman who presented to the emergency department in cardiogenic shock. He has acute HFrEF. Will continue diuresis with IV Bumex and milrinone drip. The patient has already diuresed approximately 8 L and has a -5 L fluid balance. 2. Continue milrinone drip for now. Will go and start Isordil 10 mg p.o. 3 times daily for vasodilation once the milrinone has been stopped. If he tolerates this well and his blood pressure is well-controlled we will plan to increase his Isordil to 20 mg p.o. 3 times daily tomorrow. 3. The patient does have an LV thrombus noted on CT and echocardiogram. There was also a right atrial thrombus noted on CT but was not noted on his echocardiogram. Will continue heparin drip for anticoagulation. 4. Once the patient is more hemodynamically stable we will get him started on Entresto for HFrEF. This will likely be able to be added tomorrow. 5. Once his cardiogenic shock has improved then he can be started on a beta-lexii for HFrEF. 6. Once he is euvolemic he will need to be started on Jardiance for HFrEF. 7. The patient does have an elevated troponin consistent with a non-STEMI. He has new onset cardiomyopathy. The patient will need to undergo left cardiac catheterization during this hospitalization. We will likely plan to proceed with left cardiac catheterization tomorrow to evaluate his coronary artery disease due to his non-STEMI. 8. The patient has been educated risk and benefits of proceeding with left cardiac catheterization. The patient verbalized understanding and is agreeable in proceeding with the procedure. 9. The patient will be n.p.o. after midnight tonight in preparation for left cardiac catheterization. 10. The patient does have an RENAY which is most likely secondary to his cardiogenic shock and acute HFrEF. Will continue to follow his renal function. Will plan to proceed with left cardiac catheterization tomorrow as long as his renal function is stable. 11. His blood pressure is acceptable. 12. His LDL goal is less than 55. Will get a lipid panel in the morning. 13. Start aspirin 81 mg daily and Lipitor 80 mg p.o. nightly for his non-STEMI. 14. The patient does have severe LV dysfunction. His estimated ejection fraction is 20%. The patient is at increased risk for sudden cardiac due to his severe LV dysfunction. Will get the patient set up for a LifeVest prior to discharge home. 15. Further recommendations will be made pending the patient's response to treatment. Thank you for the opportunity to help participate in the care of this patient. All recommendations and orders are per Dr. Bustillo.
[2024-03-26] MEDS: ISOSORBIDE DINITRATE 10 MG TABLET PO (17:02)
[2024-03-26] MEDS: ASPIRIN EC 81MG TABLET 81 MG PO (17:02)
[2024-03-26 18:45] LABS: PTT Heparin (inpatient only) 49.3 Seconds (50-75)
[2024-03-26 19:01] LABS: Albumin Level 3.1 g/dl (3.5-5.0); Chloride 92 mmol/L (98-107); Potassium 3.8 mmoL/L (3.5-5.1); Sodium 127 mmol/L (136-145)
[2024-03-26 19:04] LABS: Alanine Aminotransferase > 750 U/L (12-78); Albumin/Globulin Ratio 1.1 (1.1-1.8); Alkaline Phosphatase 208 U/L (38-126); Anion Gap 6.8 mEq/L (5-15); Aspartate Amino Transferase 185 U/L (17-59); Blood Urea Nitrogen 38 mg/dl (9-20); Calcium 8.9 mg/dl (8.4-10.2); Carbon Dioxide 32 mmol/L (22.0-30.0); Creatinine Clearance Estimated 48 mL/min (50-200); Estimated Glomerular Filt Rate 42 ml/min (>60); GFR (African American) 51 ML/MIN (>60); Globulin 2.8 g/dL (1.3-3.2); Glucose 120 mg/dl (74-100); Total Protein,Serum 5.9 g/dl (6.3-8.2)
[2024-03-26 19:05] LABS: Magnesium 2.3 mg/dl (1.6-2.3)
--- NOTE | 2024-03-26 20:39 | PC.NURSE ---
Heparin drip increased to 940 units per order, verified with cleo norton
[2024-03-26] MEDS: HEPARIN SODIUM 5,000 UNIT/ML VIAL 3000 UNIT IV (20:43)
[2024-03-26] MEDS: VANCOMYCIN/WATER FOR INJ (PEG) 1.25 GM/250 ML PIGGYBACK IV (20:45)
--- NOTE | 2024-03-26 20:46 | XR_ITS ---
PROCEDURE INFORMATION: Exam: XR Abdomen Exam date and time: 03/26/2024 8:48 PM Age: 53 years old Clinical indication: Abdominal pain TECHNIQUE: Imaging protocol: Radiologic exam of the abdomen. Views: Frontal supine view of the abdomen. 1 View. COMPARISON: CT ABDOMEN PELVIS W CON 03/25/2024 8:36 PM FINDINGS: Gastrointestinal tract: There is moderate to severe gaseous distension of the cecum, ascending and transverse colon. Bones/joints: Unremarkable. Lumbosacral fusion hardware. IMPRESSION: There is moderate to severe gaseous distension of the cecum, ascending and transverse colon. Suspicious for ileus.
--- NOTE | 2024-03-26 20:54 | PC.NURSE ---
Patient complaining of severe abdominal pain, tender to touch, bowl sounds audible in all quadrants. Dr. Martinez notified 2033, verbal order for morphine 2mg iv once given and kub ordered stat
--- NOTE | 2024-03-26 23:14 | EXP.EVENT.NO ---
Patient's belly distended with KUB done stat showing ileus. Patient made NPO. Patient extremely well-known to Dr. Martinez who admitted patient for anasarca likely secondary to cardiogenic shock. Patient has diuresed over 11 L urine over past 24 hours.
[2024-03-26] MEDS: HEPARIN 25,000 UNITS/D5W 500 ML 18.8 UNIT IV (23:41)
--- NOTE | 2024-03-26 23:54 | CT_ITS ---
PROCEDURE INFORMATION: Exam: CT Abdomen And Pelvis Without Contrast Exam date and time: 03/27/2024 1:41 AM Age: 53 years old Clinical indication: Abdominal pain; Additional info: Evaluate ileus vs obstruction with p. O. Contrast. Patient only able to drink 1 of the 2 cups of gastro, went ahead and scanned per DrSandi TECHNIQUE: Imaging protocol: Computed tomography of the abdomen and pelvis without contrast. Radiation optimization: All CT scans at this facility use at least one of these dose optimization techniques: automated exposure control; mA and/or kV adjustment per patient size (includes targeted exams where dose is matched to clinical indication); or iterative reconstruction. COMPARISON: CT ABDOMEN PELVIS W CON 03/25/2024 8:36 PM FINDINGS: Pleural spaces: Moderate bilateral pleural effusions and bibasilar atelectasis. Liver: Normal. No mass. Gallbladder and biliary ducts: Normal. No calcified stones. No ductal dilation. Pancreas: Normal. No ductal dilation. Spleen: Normal. No splenomegaly. Adrenal glands: Normal. No mass. Kidneys and ureters: Normal. No hydronephrosis. Stomach and bowel: Oral contrast opacifies the stomach and proximal small bowel. There is moderate gaseous distension of the cecum, ascending and transverse colon. Appendix: Not visualized. Intraperitoneal space: Small volume of abdominal ascites. Vasculature: Unremarkable. No abdominal aortic aneurysm. Lymph nodes: Unremarkable. No enlarged lymph nodes. Urinary bladder: Unremarkable as visualized. Reproductive: Unremarkable as visualized. Bones/joints: L4-L5 laminectomy and fusion. Soft tissues: Diffuse soft tissue edema. IMPRESSION: Moderate gaseous distension of the cecum, ascending and transverse colon. No obstructing lesion visualized. Suspicious for ileus. Short interval follow-up examination recommended to evaluate contrast passage to the colon. Bilateral pleural effusions, ascites and body wall edema, suspicious for anasarca/volume overload.
[2024-03-27] VITALS (74 sets, daily range): BP systolic 99–127; BP diastolic 65–88; PULSE 92–121; RESP 9–24; TEMP 36.6–37.2; O2SAT 87–96
[2024-03-27] MEDS: MORPHINE 2MG/ML SYRINGE 2 MG IV ×2 (00:48→08:23)
[2024-03-27] MEDS: DIATRIZOATE MEGLUMINE(GASTROGRAFIN) 66%-10% 120ML 20 ML PO (01:59)
[2024-03-27 03:10] LABS: PTT Heparin (inpatient only) 73.4 Seconds (50-75)
[2024-03-27] MEDS: diphenhydrAMINE 50MG/ML VIAL 50 MG IV (03:34)
--- NOTE | 2024-03-27 05:31 | PC.NURSE ---
Patient abdomen distended and tender to touch. Morphine given for prn pain medication. VS stable and patient remained on room air. Patient alert and oriented times 4. Patient npo except ice chips.
[2024-03-27 06:10] LABS: HCV Ab Non Reactive (Non Reactive)
--- NOTE | 2024-03-27 06:54 | P.CONS_ITS ---
History of Present Illness *Admission Date: 03/26/24 *Reason for visit:: Ileus versus obstruction *History of present illness: This is a 53-year-old gentleman seen in consultation regarding possible ileus versus obstruction. Please see HPI forwarded from admission H&P below. No bowel movement or flatus right. The patient states that he has significant flatus yesterday. CT abdomen/pelvis completed overnight - IMPRESSION: Moderate gaseous distension of the cecum, ascending and transverse colon. No obstructing lesion visualized. Suspicious for ileus. Short interval follow-up examination recommended to evaluate contrast passage to the colon. Bilateral pleural effusions, ascites and body wall edema, suspicious for anasarca/volume overload. Forwarded from admission H&P: 53-year-old with past medical history of B12 deficiency, hypertension, BPH, back surgery. Patient has not visited PCP in several years and presents with generalized swelling, SOB, hypoxia initially on BiPAP in emergency room. Patient states symptoms have been occurring for several weeks, but gotten worse over past few days. Patient presented to emergency room on BiPAP, but gradually weaned to 2 to 3 L nasal cannula several hours after admission in ED. Admits to dry cough with chest discomfort with coughing. States he suffered from abdominal discomfort and distention for several weeks. Also admits to some ataxia for weeks. Also admits to cold clammy hands over past few days. Denies fevers, chills, shortness of breath, recent travel, blurry vision, headaches. CTA chest showing no PE but bilateral pleural effusions anasarca and ascites. LA 4.2-> 3.3, TSH 4.6, T=47.2, procalcitonin 0.406, troponin 0.36. BNP 7840, AST 416, ALT 1078, alk phos 229, total bili 3.1, BUN 31, creatinine 1.8. LV thrombus noted on bedside echocardiogram in emergency room. [facility] Disclaimer: The information contained in this section may have been updated after the patient was seen, as this information can be updated by other users. Medical History (Updated 03/27/24 @ 06:56 by Marcell Wood MD) Severe left ventricular systolic dysfunction (LVSD) Transaminitis RENAY (acute kidney injury) Anasarca LV (left ventricular) mural thrombus Acute hypoxemic respiratory failure Cardiogenic shock Non-STEMI (non-ST elevated myocardial infarction) Acute HFrEF (heart failure with reduced ejection fraction) Pneumonia Pleural effusion, bilateral Vitamin B12 deficiency Allergic rhinitis BPH (benign prostatic hyperplasia) Hyperlipidemia Insomnia Partial tear of right Achilles tendon Social History Smoking Status: Never smoker alcohol intake: never substance use type: former substance user and heroin current occupational status: unemployed Travel in the last 8 weeks: None Have you lived/traveled outside [place] in past 30 days?: No Contact w/someone who lives/traveled outside US past 30 days?: No Exposure to someone with infectious disease in past 14 days?: No Do you have a fever (greater than 100.4 F or 38 C)?: No Have you tested positive for COVID-19: No Exposed to someone with COVID-19 in past 14 days?: No Do you have a sore throat?: No Do you have a cough?: No Do you have any weakness?: No Do you have any diarrhea?: No Are you experiencing any unusual bleeding?: No Do you have any muscle aches/pain?: No Do you have any abdominal pain?: No Are you experiencing loss of taste or smell?: No Review of Systems Constitutional Constitutional: Reports weakness *Neurologic Neurologic: Reports system reviewed and no additional complaints, except as documented and Reports weakness Meds Home Medications and Allergies Home Medications ?Medication ?Instructions ?Recorded ?Confirmed ?Type No Known Home Medications 03/26/24 03/26/24 History New Prescriptions to Start Prescriptions: Allergies Allergy/AdvReac Type Severity Reaction Status Date / Time diclofenac (DICLOFENAC) Allergy Unknown Verified 08/12/21 13:08 Penicillins (PENICILLINS) Allergy Unknown Verified 08/12/21 13:08 propoxyphene (PROPOXYPHENE) Allergy Unknown Verified 08/12/21 13:08 tramadol (TRAMADOL) Allergy Unknown Verified 08/12/21 13:08 Exam (Inpt) Vital signs and Labs for Last 24 Hours: Temp Pulse Resp BP Pulse Ox O2 Del Method O2 Flow Rate 98.2 F 113 H 16 114/79 91 L Room Air 3 03/27/24 04:00 03/27/24 06:00 03/27/24 06:00 03/27/24 06:00 03/27/24 06:00 03/27/24 06:00 03/25/24 18:47 Laboratory Results - last 24 hr 03/25/24 19:05: Hepatitis C Antibody Non reactive 03/26/24 05:24: APTT 70.0 03/26/24 09:35: APTT 64.7 03/26/24 13:00: APTT 51.9 03/26/24 18:00: APTT 49.3 L, Sodium 127 L, Potassium 3.8, Chloride 92 L, Carbon Dioxide 32 H, Anion Gap 6.8, BUN 38 H, Creatinine 1.70 H, Estimated Creat Clear 48, Estimated GFR 42 L, Est GFR ( Amer) 51 L, Glucose 120 H, Calcium 8.9, Magnesium 2.3 D, Total Bilirubin 3.0 H, AST 185 H D, ALT > 750 H*, Alkaline Phosphatase 208 H, Total Protein 5.9 L, Albumin 3.1 L, Globulin 2.8, Albumin/Globulin Ratio 1.1 03/27/24 02:20: APTT 73.4 I & O for Labs for Last 24 Hours: Intake & Output 03/24/24 03/25/24 03/26/24 03/27/24 11:59 11:59 11:59 11:59 Intake Total 700.6 / 700.6 813.765 / 813.765 Output Total 8125 / 8125 9875 / 9875 Balance -7424.4 / -7424.4 -9061.235 / -9061.235 Weight 149 lb 14.629 oz Microbiology Reports for the Last 24 Hours: Microbiology 03/25/24 19:04 Blood Blood Culture - Preliminary NO GROWTH AFTER 24 HOURS 03/25/24 19:05 Blood Blood Culture - Preliminary NO GROWTH AFTER 24 HOURS Constitutional: no acute distress Respiratory: Absent respiratory distress GI: Present soft and distention Results Labs 03/26/24 03:00 03/26/24 18:00 Labs: Laboratory Results - last 24 hr 03/25/24 19:05: Hepatitis C Antibody Non reactive 03/26/24 05:24: APTT 70.0 03/26/24 09:35: APTT 64.7 03/26/24 13:00: APTT 51.9 03/26/24 18:00: APTT 49.3 L, Sodium 127 L, Potassium 3.8, Chloride 92 L, Carbon Dioxide 32 H, Anion Gap 6.8, BUN 38 H, Creatinine 1.70 H, Estimated Creat Clear 48, Estimated GFR 42 L, Est GFR ( Amer) 51 L, Glucose 120 H, Calcium 8.9, Magnesium 2.3 D, Total Bilirubin 3.0 H, AST 185 H D, ALT > 750 H*, Alkaline Phosphatase 208 H, Total Protein 5.9 L, Albumin 3.1 L, Globulin 2.8, Albumin/Globulin Ratio 1.1 03/27/24 02:20: APTT 73.4 Assessment and Plan *Assessment and plan (1) Paralytic ileus of small intestine and colon: Status: Acute Category: Medical Code(s): K56.0 - Paralytic ileus Plan: No evidence of mechanical obstruction noted per CT scan. The patient continued to pass flatus as of yesterday. Await return of bowel function Rectal stimulation (suppository, enema, etc.) as needed Continue current medical management Continue serial abdominal exams Low threshold for nasogastric decompression Low threshold for transfer to tertiary center if symptomatology worsens (the patient would not be appropriate for surgical intervention at this facility)
[2024-03-27 07:27] LABS: Albumin Level 3.1 g/dl (3.5-5.0); Chloride 92 mmol/L (98-107); Potassium 3.1 mmoL/L (3.5-5.1); Sodium 133 mmol/L (136-145)
[2024-03-27 07:29] LABS: Alanine Aminotransferase 696 U/L (12-78); Aspartate Amino Transferase 133 U/L (17-59); Blood Urea Nitrogen 39 mg/dl (9-20); Creatinine Clearance Estimated 41 mL/min (50-200); Estimated Glomerular Filt Rate 35 ml/min (>60); GFR (African American) 43 ML/MIN (>60)
[2024-03-27 07:30] LABS: Albumin/Globulin Ratio 1.1 (1.1-1.8); Alkaline Phosphatase 216 U/L (38-126); Anion Gap 7.1 mEq/L (5-15); Bilirubin,Total 2.9 mg/dl (0.2-1.3); Calcium 8.4 mg/dl (8.4-10.2); Carbon Dioxide 37 mmol/L (22.0-30.0); Globulin 2.7 g/dL (1.3-3.2); Glucose 105 mg/dl (74-100); Magnesium 1.9 mg/dl (1.6-2.3); Total Protein,Serum 5.8 g/dl (6.3-8.2)
[2024-03-27 07:36] LABS: Basophils # 0.1 K/mm3 (0-0.2); Eosinophils # 0.6 K/mm3 (0.0-0.4); Eosinophils % 6.2 % (0.1-12.0); Hematocrit 48.4 % (42.0-52.0); Hemoglobin 15.6 g/dL (14.1-18.0); Lymphocytes % 9.9 % (10-50); Mean Corpuscular HGB Conc 32.2 g/dL (31.8-35.4); Mean Corpuscular Hemoglobin 29.5 pg (27.0-31.2); Mean Corpuscular Volume 91.7 fl (80-94); Mean Platelet Volume 9.3 fl (7.4-10.4); Monocytes # 0.8 K/mm3 (0.1-1.0); Monocytes % 8.3 % (1.7-9.3); Neutrophils # 7.2 K/mm3 (1.8-7.8); Neutrophils % 74.5 % (37.0-80.0); Platelet Count 178 K/mm3 (142-424); Red Blood Count 5.27 M/mm3 (4.60-6.20); Red Cell Distribution Width 14.3 % (11.5-17.5); White Blood Count 9.7 K/mm3 (4.8-10.8)
[2024-03-27 07:52] LABS: Chol/HDL Ratio 5.2 (1-3.5); Cholesterol 110 mg/dl (140-200); HDL Cholesterol 21 mg/dl (40-60); Triglycerides 47 mg/dl (30-150); VLDL Cholesterol 9 mg/dL (0-40)
[2024-03-27 08:03] LABS: Direct LDL Cholesterol 76.69 mg/dL (100-129)
[2024-03-27] MEDS: MILRINONE LACTATE 20 MG in 0.9 % SODIUM CHLORIDE 80 ML 2.55 MG IV (09:20)
[2024-03-27] MEDS: BISACODYL 10MG SUPP 10 MG RC (09:33)
[2024-03-27 09:35] LABS: PTT Heparin (inpatient only) 61.2 Seconds (50-75)
--- NOTE | 2024-03-27 09:53 | P.PN_ITS ---
Subjective *Date: 03/27/24 *Time: 10:57 Interval history: No acute respiratory vents overnight. Patient denies any new respiratory complaints. Pulmonology Exam Inpatient Vital signs and Labs for Last 24 Hours: Temp Pulse Resp BP Pulse Ox O2 Del Method O2 Flow Rate 98.2 F 114 H 10 L 124/81 89 L Room Air 3 03/27/24 04:00 03/27/24 09:15 03/27/24 09:15 03/27/24 09:00 03/27/24 09:15 03/27/24 06:54 03/25/24 18:47 Laboratory Results - last 24 hr 03/25/24 19:05: Hepatitis C Antibody Non reactive 03/26/24 09:35: APTT 64.7 03/26/24 13:00: APTT 51.9 03/26/24 18:00: APTT 49.3 L, Sodium 127 L, Potassium 3.8, Chloride 92 L, Carbon Dioxide 32 H, Anion Gap 6.8, BUN 38 H, Creatinine 1.70 H, Estimated Creat Clear 48, Estimated GFR 42 L, Est GFR ( Amer) 51 L, Glucose 120 H, Calcium 8.9, Magnesium 2.3 D, Total Bilirubin 3.0 H, AST 185 H D, ALT > 750 H*, Alkaline Phosphatase 208 H, Total Protein 5.9 L, Albumin 3.1 L, Globulin 2.8, Albumin/Globulin Ratio 1.1 03/27/24 02:20: APTT 73.4 03/27/24 06:05: WBC 9.7, RBC 5.27, Hgb 15.6, Hct 48.4, MCV 91.7, MCH 29.5, MCHC 32.2, RDW 14.3, Plt Count 178, MPV 9.3, Neut % (Auto) 74.5, Lymph % (Auto) 9.9 L , [place] % (Auto) 8.3, Eos % (Auto) 6.2, Baso % (Auto) 1.0, Neut # (Auto) 7.2, Lymph # (Auto) 1.0, [place] # (Auto) 0.8, Eos # (Auto) 0.6 H, Baso # (Auto) 0.1, Sodium 133 L, Potassium 3.1 L, Chloride 92 L, Carbon Dioxide 37 H, Anion Gap 7.1, BUN 39 H, Creatinine 2.00 H, Estimated Creat Clear 41, Estimated GFR 35 L, Est GFR ( Amer) 43 L, Glucose 105 H, Calcium 8.4, Magnesium 1.9 D, Total Bilirubin 2.9 H, AST 133 H D, ALT 696 H*, Alkaline Phosphatase 216 H, Total Protein 5.8 L, Albumin 3.1 L, Globulin 2.7, Albumin/Globulin Ratio 1.1, Triglycerides 47, Cholesterol 110 L, LDL Cholesterol Direct 76.69 L, VLDL Cholesterol 9, HDL Cholesterol 21 L, Cholesterol/HDL Ratio 5.2 H 03/27/24 08:45: APTT 61.2 Temp Pulse Resp BP Pulse Ox O2 Del Method O2 Flow Rate 97.6 F 115 H 20 114/76 97 Room Air 3 03/26/24 08:00 03/26/24 12:37 03/26/24 12:00 03/26/24 12:00 03/26/24 12:37 03/26/24 12:37 03/25/24 18:47 Laboratory Results - last 24 hr 03/25/24 19:05: WBC 10.2, RBC 5.04, Hgb 14.9, Hct 47.5, MCV 94.3 H, MCH 29.6, MCHC 31.4 L, RDW 14.3, Plt Count 166, MPV 9.2, Neut % (Auto) 75.7, Lymph % (Auto) 12.2, [place] % (Auto) 9.8 H, Eos % (Auto) 1.7, Baso % (Auto) 0.5, Neut # (Auto) 7.7, Lymph # (Auto) 1.3, [place] # (Auto) 1.0, Eos # (Auto) 0.2, Baso # (Auto) 0.1, PT 15.6 H, INR 1.44 H, APTT 29.6, D-Dimer 4.78 H, Sodium 132 L, Potassium 4.6, Chloride 98, Carbon Dioxide 25, Anion Gap 13.6, BUN 31 H, Creatinine 1.80 H, Estimated Creat Clear 46, Estimated GFR 40 L, Est GFR ( Amer) 48 L, Glucose 129 H, Lactate 3.4 H, Calcium 9.5, Phosphorus 4.0, Magnesium 1.9, Total Bilirubin 3.1 H, AST 416 H*, ALT 1078 H*, Alkaline Phosphatase 229 H, Troponin I 0.36 H, C-Reactive Protein 61.5 H, NT-Pro-B Natriuret Pep 7840 H, Total Protein 6.3, Albumin 3.6, Globulin 2.7, Albumin/Globulin Ratio 1.3, Lipase 270, Procalcitonin 0.406, TSH 4.60, Thyroxine (T4) 7.2, Plasma/Serum Alcohol < 10 03/25/24 19:12: VBG pH 7.35, VBG pCO2 45.1, VBG pO2 31.0, VBG HCO3 24.3, VBG Total CO2 25.7, VBG O2 Saturation 53.9, VBG Base Excess -1.3, VBG Lactic Acid 4.2 H 03/25/24 19:17: Chlamy pneumoniae PCR Not detected, Adenovirus (PCR) Not detected, B. pertussis DNA (PCR) Not detected, Coronavirus OC43 (PCR) Not detected, Coronavirus HKU1 (PCR) Not detected, Coronavirus 229E (PCR) Not detected, SARS-CoV-2 (PCR) Not detected 03/25/24 19:17: SARS-CoV-2 (PCR) Not detected, Coronavirus NL63 (PCR) Not detected, Human Metapneumovir PCR Not detected, Influenza A (H1) PCR Not detected, Influ A (H1N1/09) PCR Not detected, Influenza A (H3) PCR Not detected, Influenza Type A (PCR) Not detected, Influenza A Untype (PCR) Not detected, Influenza Type B (PCR) Not detected 03/25/24 19:17: Influenza Type B (PCR) Not detected, M. pneumoniae (PCR) Not detected, Parainfluenza 1 (PCR) Not detected, Parainfluenza 2 (PCR) Not detected, Parainfluenza 3 (PCR) Not detected, Parainfluenza 4 (PCR) Not detected, RSV (PCR) Not detected, Entero/Rhino (PCR) Not detected 03/25/24 20:21: VBG pH 7.36, VBG pCO2 40.9, VBG pO2 42.7 H, VBG HCO3 22.6 L, VBG Total CO2 23.8, VBG O2 Saturation 75.5 H, VBG Base Excess -2.9 L, VBG Lactic Acid 3.3 H 03/25/24 21:40: Urine Color Yellow, Urine Appearance Clear, Urine pH 5.5, Ur Specific Labadie 1.025, Urine Protein 2+ A, Urine Glucose (UA) Negative, Urine Ketones Negative, Urine Blood 1+ A, Urine Nitrate Negative, Urine Bilirubin 1+ A , Urine Urobilinogen 1.0, Ur Leukocyte Esterase Negative, Urine RBC 3-5, Urine WBC 3-5, Ur Squamous Epith Cells None, Urine Bacteria Trace 03/25/24 23:55: Lactate 2.0 03/26/24 01:00: APTT > 200.0 H* 03/26/24 03:00: WBC 9.6, RBC 4.96, Hgb 14.7, Hct 46.0, MCV 92.8, MCH 29.6, MCHC 31.9, RDW 14.5, Plt Count 168, MPV 9.1, Neut % (Auto) 75.1, Lymph % (Auto) 14.5, [place] % (Auto) 8.1, Eos % (Auto) 1.7, Baso % (Auto) 0.6, Neut # (Auto) 7.2, Lymph # (Auto) 1.4, [place] # (Auto) 0.8, Eos # (Auto) 0.2, Baso # (Auto) 0.1, APTT 198.4 H*, Sodium 132 L, Potassium 4.0, Chloride 99, Carbon Dioxide 24, Anion Gap 13.0, BUN 34 H, Creatinine 1.70 H, Estimated Creat Clear 48, Estimated GFR 42 L, Est GFR ( Amer) 51 L, Glucose 134 H, Calcium 9.3, Magnesium 1.6 D, Total Bilirubin 3.2 H, AST 275 H D, ALT 938 H*, Alkaline Phosphatase 211 H, Total Protein 5.8 L, Albumin 3.2 L D, Globulin 2.6, Albumin/Globulin Ratio 1.2 03/26/24 05:24: APTT 70.0 03/26/24 09:35: APTT 64.7 03/26/24 13:00: APTT 51.9 I & O for Labs for Last 24 Hours: Intake & Output 03/24/24 03/25/24 03/26/24 03/27/24 23:59 23:59 23:59 23:59 Intake Total 1464.365 / 1514.365 90.205 / 90.205 Output Total 27061 / 53696 3150 / 3150 Balance -32809.635 / -02670.635 -3059.795 / -3059.795 Weight 150 lb 149 lb 14.629 oz Intake & Output 03/23/24 03/24/24 03/25/24 03/26/24 23:59 23:59 23:59 23:59 Intake Total 1080.658 / 1080.658 Output Total 9725 / 9725 Balance -8644.342 / -8644.342 Weight 150 lb 149 lb 14.629 oz Microbiology Reports for the Last 24 Hours: Microbiology 03/25/24 19:04 Blood Blood Culture - Preliminary NO GROWTH AFTER 24 HOURS 03/25/24 19:05 Blood Blood Culture - Preliminary NO GROWTH AFTER 24 HOURS Constitutional: Present mild distress Head: Present normocephalic and atraumatic ENT: Present normal exam, normal oropharynx and mucous membranes moist Neck: Present normal inspection and full ROM Respiratory: Present respiratory distress, crackles, diminished air movement and able to speak in complete sentences; Absent prolonged expiratory phase or wheezes Cardiac: Present S1/S2, Tachycardia and radial pulses present GI: Present soft and distention; Absent tenderness or guarding Skin: Present intact; Absent cyanosis or jaundice Neuro: Present alert, awake and oriented x 3 Extremities: Present normal inspection; Absent clubbing or cyanosis Psychiatric: Present normal affect and cooperative Assessment and Plan *Assessment and plan (1) Pleural effusion, bilateral: Status: Acute Category: Medical Code(s): J90 - Pleural effusion, not elsewhere classified (2) Pneumonia: Status: Acute Qualifiers: Laterality: unspecified laterality Lung location: unspecified part of lung Pneumonia type: due to unspecified organism Qualified Code(s): J18.9 - Pneumonia, unspecified organism Category: Medical Code(s): J18.9 - Pneumonia, unspecified organism Plan Mr. Gonsales is a 53-year-old male never smoker, no significant prior respiratory complaint not using any oxygen supplementation or inhalers at baseline presented with ER with worsening respiratory distress bilateral lower extremity swelling found to be in heart failure exacerbation, transaminitis, bilateral pleural effusions and LV apical thrombus cardiology following, pulmonary was called for further evaluation and management. Patient today on examination does not appear to be in any respiratory distress. On room air saturating 95% and above. No significant wheezing noted on auscultation. CTA upon admission bilateral pleural effusions right greater than left. Left lingular lobar pneumonia noted. CTA negative for PE Afebrile. No evidence of leukocytosis. Comprehensive respiratory viral PCR panel negative. Blood cultures pending. Transaminitis improving. Interval update: Continue to receive vancomycin and cefepime. Blood cultures no growth 24 hours. No acute respiratory vents overnight. Continue to remain on room air. Chest x-ray from this morning improving effusions. No new airspace disease/consolidative changes noted. Left lingular airspace disease stable. Plan: Antibiotics can be weaned to levofloxacin from pulmonary standpoint for the concerning airspace disease. DuoNebs QID PRN No need for thoracentesis at this point of time as patient significant response to diuretic regimen and improvement in his respiratory status. Will monitor clinically.
--- NOTE | 2024-03-27 09:53 | XR_ITS ---
FINAL REPORT TECHNIQUE: Single view chest CLINICAL HISTORY: Hypoxia COMPARISON: 03/25/2024 FINDINGS: A single view of the chest was obtained. The heart is enlarged. There is been minimal improvement in peripheral opacity of the left midlung. There is worsening left lower lobe opacity. There is a small left pleural effusion. Mild infrahilar right lung opacity is also seen. There is no pneumothorax. Osseous structures are unremarkable. IMPRESSION: Multifocal pneumonia, overall, mildly worse. Reviewed, Interpreted and Dictated by Monse Muir MD Transcribed by Cait Love Authenticated and [facility]
--- NOTE | 2024-03-27 10:16 | HMH.PTEV ---
Physical Therapy Evaluation Rehab PT IP Evaluation Start: 03/27/24 09:11 Freq: ONCE Status: Active Protocol: Document 03/27/24 10:13 DARY (Rec: 03/27/24 10:16 DARY [id number]) Subjective/History History History 53-year-old with past medical history of B12 deficiency, hypertension, BPH, back surgery. Patient has not visited PCP in several years and presents with generalized swelling, SOB, hypoxia initially on BiPAP in emergency room. Possible ileus noted at this time. Pt reports he lives alone, no LOUISE the home, and is generally independent with all mobility at baseline without AD. Subjective Subjective He reports pain with movement in his abdomen, but agrees to mobility assessment this am. New diagnosis of cancer in past 12 No months? Rehab PT IP Eval Objective Appearance Patient Behavior Appropriate Patient Orientation Person,Place,Time Difficulty following instructions none Speech Pattern Clear Ambulation Patient Able to Ambulate Yes Ambulation Observation IP General Gait Pattern Observation No Deviations/Normal Ambulation Distance (feet) 20 Ambulation Assistive Device None Ambulation Ability Supervision/Stand by Balance Ability to Arise Able, uses arms to help Sitting Balance Steady, safe Standing Balance Narrow stance w/o support Dynamic Sitting Balance Ability Normal Dynamic Standing Balance Ability Good Transfers Bed Transfer Ability Independent Chair Transfer Ability Independent Sit to Stand Bed Transfer Ability Independent Sit to Stand Chair Transfer Ability Independent Rehab PT IP prob,goals,plan Problems Date of Evaluation: 03/27/24 Discharge Plan PT Discharge Plan Pt is currently appropriate to return home once medically stable for d/c. No current inpatient therapy needs at this time. Eval Complexity Eval Charge Codes 93563 - High Complexity PHYSICIAN CERTIFICATION: I certify the specified therapy services for Manuel Gonsales are required, authorized, and reviewed every 30 days.
--- NOTE | 2024-03-27 11:08 | HMH.OTEV ---
OT Inpatient Evaluation Rehab OT IP Evaluation Start: 03/27/24 09:11 Freq: ONCE Status: Active Protocol: Document 03/27/24 11:01 JALYN (Rec: 03/27/24 11:07 JALYN [id number]) Rehab OT IP Assessment Subjective History Pt oriented x 3 on arrival. 53-year-old with past medical history of B12 deficiency, hypertension, BPH, back surgery. Patient has not visited PCP in several years and presents with generalized swelling, SOB, hypoxia initially on BiPAP in emergency room. Possible ileus noted at this time. Pt reports he lives alone and no steps to enter home. Pt claims normally he is independent with all ADLs and IADLs prior to admission. Pt was also still driving prior to admission. [ End ] Subjective Pt does complain of stomach pain at this time, but agreeable to complete therapy evaluation. Objective Patient Orientation Person,Name,Birthday Right Upper Extremity Gross ROM WFL Left Upper Extremity Gross ROM WFL Bed Mobility bed mobility-scooting,bed mobility - supine/sit Assist Level Supervision/Stand by Transfer Training Sit/Stand Transfer Assist Level Supervision/Stand by Chair Transfer Ability Supervision/Stand by Chair Transfer Technique Sit to/from Ambulatory Chair Transfer Assistive Devices None Lower Body Dressing Ability Standby Assistance Rehab OT IP prob,goals,plan Problems Date of Evaluation: 03/27/24 Rehab Potential Rehab Potential Innapropriate for Skilled Therapy Discharge Plan OT Discharge Plan Pt appears to be at his baseline with functional transfers and ADL independence . Pt can return home once medically stable per physician . Eval Complexity Eval Charge Codes 66699 - Low Complexity PHYSICIAN CERTIFICATION: I certify the specified therapy services for Manuel Gonsales are required, authorized, and reviewed every 30 days.
[2024-03-27] MEDS: ASPIRIN EC 81MG TABLET 81 MG PO (11:35)
[2024-03-27] MEDS: KCl 10mEq/100ml 100 ML 100 MEQ IV ×8 (11:36→21:29)
[2024-03-27] MEDS: ISOSORBIDE DINITRATE 10 MG TABLET PO ×3 (11:36→20:12)
[2024-03-27 12:48] LABS: HIV Combo NEGATIVE (Negative)
[2024-03-27] MEDS: CEFEPIME HCL 1 GM in 0.9 % SODIUM CHLORIDE 50 ML IV (13:38)
[2024-03-27] MEDS: MAGNESIUM SULFATE IN WATER 2 GM/50 ML PIGGYBACK IV (13:47)
--- NOTE | 2024-03-27 14:15 | P.PN_ITS ---
Subjective Subjective Date: 03/27/24 Time: 10:00 Interval history: CV stable overnight but developed possible colonic ileus, has seen GI. Pt denies CP, SOA, palps but has mild diffuse abdominal pain worse with palpation. Exam Data for Last 24 hours Vital signs and Labs for Last 24 Hours: Temp Pulse Resp BP Pulse Ox O2 Del Method O2 Flow Rate 98.2 F 110 H 10 L 113/75 94 L Room Air 3 03/27/24 04:00 03/27/24 13:45 03/27/24 13:45 03/27/24 13:00 03/27/24 13:45 03/27/24 09:00 03/25/24 18:47 Laboratory Results - last 24 hr 03/25/24 19:05: Hepatitis C Antibody Non reactive 03/26/24 18:00: APTT 49.3 L, Sodium 127 L, Potassium 3.8, Chloride 92 L, Carbon Dioxide 32 H, Anion Gap 6.8, BUN 38 H, Creatinine 1.70 H, Estimated Creat Clear 48, Estimated GFR 42 L, Est GFR ( Amer) 51 L, Glucose 120 H, Calcium 8.9, Magnesium 2.3 D, Total Bilirubin 3.0 H, AST 185 H D, ALT > 750 H*, Alkaline Phosphatase 208 H, Total Protein 5.9 L, Albumin 3.1 L, Globulin 2.8, Albumin/Globulin Ratio 1.1 03/27/24 02:20: APTT 73.4 03/27/24 06:05: WBC 9.7, RBC 5.27, Hgb 15.6, Hct 48.4, MCV 91.7, MCH 29.5, MCHC 32.2, RDW 14.3, Plt Count 178, MPV 9.3, Neut % (Auto) 74.5, Lymph % (Auto) 9.9 L , [place] % (Auto) 8.3, Eos % (Auto) 6.2, Baso % (Auto) 1.0, Neut # (Auto) 7.2, Lymph # (Auto) 1.0, [place] # (Auto) 0.8, Eos # (Auto) 0.6 H, Baso # (Auto) 0.1, Sodium 133 L, Potassium 3.1 L, Chloride 92 L, Carbon Dioxide 37 H, Anion Gap 7.1, BUN 39 H, Creatinine 2.00 H, Estimated Creat Clear 41, Estimated GFR 35 L, Est GFR ( Amer) 43 L, Glucose 105 H, Calcium 8.4, Magnesium 1.9 D, Total Bilirubin 2.9 H, AST 133 H D, ALT 696 H*, Alkaline Phosphatase 216 H, Total Protein 5.8 L, Albumin 3.1 L, Globulin 2.7, Albumin/Globulin Ratio 1.1, Triglycerides 47, Cholesterol 110 L, LDL Cholesterol Direct 76.69 L, VLDL Cholesterol 9, HDL Cholesterol 21 L, Cholesterol/HDL Ratio 5.2 H, HIV Ag/Ab Combo Qual Negative 03/27/24 08:45: APTT 61.2 I & O for Last 24 hours: Intake & Output 03/24/24 03/25/24 03/26/24 03/27/24 23:59 23:59 23:59 23:59 Intake Total 1464.365 / 1514.365 90.205 / 90.205 Output Total 19679 / 87015 3150 / 3150 Balance -55770.635 / -92224.635 -3059.795 / -3059.795 Weight 150 lb 149 lb 14.629 oz Microbiology Reports for the Last 24 Hours: Microbiology 03/25/24 21:40 Urine,Clean Catch Urine Culture - Final No growth. 03/25/24 19:04 Blood Blood Culture - Preliminary NO GROWTH AFTER 24 HOURS 03/25/24 19:05 Blood Blood Culture - Preliminary NO GROWTH AFTER 24 HOURS Constitutional Constitutional: no acute distress and cooperative *Routine HEENT Exam Eye: Present PERRL *Routine Respiratory Exam Respiratory: Present CTA bilaterally; Absent accessory muscle use, wheezes or crackles *Routine Cardiovascular Exam Cardiovascular: Present RRR, Normal S1 and Normal S2; Absent murmur, gallop or rubs *Routine Abdominal Exam Abdominal: Present soft; Absent tenderness *Routine Extremities Exam Extremities: Present pulses intact; Absent cyanosis or edema *Routine Skin Exam Skin: Present intact; Absent erythema or wounds *Routine Neurological Exam Neurological: Present alert and oriented X3 Routine Psychiatric Exam Psychiatric: Present cooperative Progress Note: A&P Assessment and plan (1) Cardiogenic shock: Status: Acute (2) Pleural effusion, bilateral: Status: Acute (3) Pneumonia: Status: Acute (4) Paralytic ileus of small intestine and colon: Status: Acute (5) Severe left ventricular systolic dysfunction (LVSD): Status: Acute (6) Non-STEMI (non-ST elevated myocardial infarction): Status: Acute (7) Acute HFrEF (heart failure with reduced ejection fraction): Status: Acute (8) LV (left ventricular) mural thrombus: Status: Acute (9) Transaminitis: Status: Acute (10) RENAY (acute kidney injury): Status: Acute (11) Right atrial thrombus: Status: Acute Assessment and Plan Assessment and Plan for All Diagnoses:: Acute Cardiogenic Shock with Multiorgan Failure - new dx this admission with EF 15-20% - need to r/o ischemia, LHC pending pt stabilization - pt diuresed 16L - Bumex reduced to 1mg BID - EKG shows anterior q-waves - cont ASA and Heparin Large LV Thrombus - 3.5 x 2.5 - cont Heparin - no indication for surgical removal at this time per Dr. Mcgill Right Atrial Thrombus - noted on CTA Chest - cont Heparin Paralytic Ileus of Colon - seen by Gen Surgery - recommend med management for now - pt has diffuse tender abdomen but has started passing gas - consider ischemic bowel due to large LV thrombus - watch for fever and trend lactate CONTRAST ALLERGY - pt developed itching and restlessness following CTA 03/26 CKD III - Cr 2.0, came in at 1.8, unknown baseline - trend labs daily Transaminitis - improving daily Pt is CV stable but critically ill with high risk for further morbidity/mortality. Will continue current treatments today and see if his GI scenario improves. Consider C tomorrow.
[2024-03-27 14:36] LABS: PTT Heparin (inpatient only) 63.5 Seconds (50-75)
--- NOTE | 2024-03-27 14:53 | SW/DCPLANNER ---
Per PT/OT patient is independent w/ no needs at this time.
[2024-03-27 17:46] LABS: Chloride 92 mmol/L (98-107); Potassium 4.2 mmoL/L (3.5-5.1); Sodium 128 mmol/L (136-145)
[2024-03-27 17:49] LABS: Anion Gap 7.2 mEq/L (5-15); Blood Urea Nitrogen 39 mg/dl (9-20); Calcium 7.9 mg/dl (8.4-10.2); Carbon Dioxide 33 mmol/L (22.0-30.0); Creatinine Clearance Estimated 46 mL/min (50-200); Estimated Glomerular Filt Rate 40 ml/min (>60); GFR (African American) 48 ML/MIN (>60); Glucose 142 mg/dl (74-100)
--- NOTE | 2024-03-27 18:08 | PC.NURSE ---
Pt is sitting up in the chair. Has had a BM. Denies any discomfort to abdomen at this time. Tolerating full liquid diet. Remains on RA. Milrinone currently infusing@ 0.125 mcg/kg/min. Heparin is infusing @ 940 units/hr. Electrolytes, potassium and magnesium replaced. Call light within reach.
--- NOTE | 2024-03-27 19:35 | P.PN_ITS ---
Subjective *Date: 03/27/24 *Time: 19:35 Interval history: Alert and oriented x 4. On room air. Complaining of abdominal pain. No gas overnight. Denies nausea or vomiting. Asking for something to drink. Medical Exam Vital signs and Labs for Last 24 Hours: Vital Signs Temp Pulse Resp BP BP Pulse Ox O2 Del Method 03/27/24 19:00 Room Air 03/27/24 18:06 120 H 16 101/71 L 96 Room Air 03/27/24 17:00 116 H 16 105/76 L 96 Room Air 03/27/24 17:00 Room Air 03/27/24 16:00 110 H 03/27/24 16:00 113/79 03/27/24 16:00 111 H 14 96 03/27/24 15:45 113 H 9 L 96 03/27/24 15:30 117 H 14 96 03/27/24 15:19 Room Air 03/27/24 15:15 112 H 11 L 95 03/27/24 15:01 111 H 15 96 03/27/24 15:01 99/66 L 03/27/24 15:00 111 H 18 96 03/27/24 15:00 Room Air 03/27/24 14:45 111 H 15 93 L 03/27/24 14:30 111 H 11 L 94 L 03/27/24 14:15 117 H 15 93 L 03/27/24 14:00 117/82 03/27/24 14:00 113 H 12 95 03/27/24 13:45 110 H 10 L 94 L 03/27/24 13:30 111 H 11 L 94 L 03/27/24 13:15 111 H 9 L 94 L 03/27/24 13:00 Room Air 03/27/24 13:00 110 H 10 L 95 03/27/24 13:00 113/75 03/27/24 12:45 114 H 10 L 94 L 03/27/24 12:30 121 H 14 94 L 03/27/24 12:15 110 H 11 L 94 L 03/27/24 12:00 110 H 03/27/24 12:00 Room Air 03/27/24 12:00 125/88 03/27/24 12:00 110 H 10 L 94 L 03/27/24 11:45 112 H 12 96 03/27/24 11:30 113 H 9 L 96 03/27/24 11:15 112 H 9 L 94 L 03/27/24 11:00 Room Air 03/27/24 11:00 119/75 03/27/24 11:00 92 H 9 L 94 L 03/27/24 10:45 114 H 13 94 L 03/27/24 10:30 111 H 18 92 L 03/27/24 10:15 111 H 9 L 93 L 03/27/24 10:00 114/80 03/27/24 10:00 113 H 11 L 93 L 03/27/24 09:57 114 H 91 L 03/27/24 09:30 116 H 20 87 L 03/27/24 09:15 114 H 10 L 89 L 03/27/24 09:00 Room Air 03/27/24 09:00 110 H 12 90 L 03/27/24 09:00 124/81 03/27/24 09:00 124/81 03/27/24 08:45 112 H 12 92 L 03/27/24 08:30 115 H 13 91 L 03/27/24 08:15 117 H 12 91 L 03/27/24 08:00 110 H 03/27/24 08:00 Room Air 03/27/24 08:00 127/79 03/27/24 08:00 117 H 93 L 03/27/24 07:45 117 H 15 93 L 03/27/24 07:30 118 H 15 93 L 03/27/24 07:15 116 H 20 94 L 03/27/24 07:00 126/82 03/27/24 07:00 115 H 14 91 L 03/27/24 06:54 Room Air 03/27/24 06:45 117 H 21 93 L 03/27/24 06:30 115 H 15 92 L 03/27/24 06:15 114 H 10 L 93 L 03/27/24 06:00 114/79 03/27/24 06:00 110 H 17 93 L 03/27/24 06:00 113 H 16 114/79 91 L Room Air 03/27/24 05:45 108 H 14 93 L 03/27/24 05:30 112 H 11 L 92 L 03/27/24 05:15 108 H 11 L 93 L 03/27/24 05:00 119/80 03/27/24 05:00 108 H 10 L 93 L 03/27/24 05:00 Room Air 03/27/24 05:00 109 H 14 119/80 91 L Room Air 03/27/24 04:45 109 H 15 94 L 03/27/24 04:30 108 H 11 L 94 L 03/27/24 04:15 108 H 11 L 94 L 03/27/24 04:00 105 H 11 L 94 L 03/27/24 04:00 110/77 03/27/24 04:00 108 H 03/27/24 04:00 98.2 F 110 H 14 110/77 94 L Room Air 03/27/24 04:00 Room Air 03/27/24 03:45 114 H 12 94 L 03/27/24 03:30 108 H 10 L 91 L 03/27/24 03:15 116 H 13 91 L 03/27/24 03:00 110 H 12 94 L 03/27/24 03:00 115/79 03/27/24 03:00 Room Air 03/27/24 03:00 111 H 12 115/79 92 L Room Air 03/27/24 02:45 110 H 11 L 94 L 03/27/24 02:30 111 H 9 L 94 L 03/27/24 02:15 111 H 11 L 93 L 03/27/24 02:02 120/79 03/27/24 02:02 114 H 15 96 03/27/24 02:00 111 H 12 93 L 03/27/24 02:00 112 H 13 120/79 94 L Room Air 03/27/24 01:59 113 H 12 92 L 03/27/24 01:30 113 H 11 L 93 L 03/27/24 01:15 110 H 20 92 L 03/27/24 01:00 118/85 03/27/24 01:00 113 H 15 93 L 03/27/24 01:00 112 H 20 118/85 94 L Room Air 03/27/24 01:00 Room Air 03/27/24 00:45 110 H 12 94 L 03/27/24 00:30 113 H 24 92 L 03/27/24 00:15 113 H 19 93 L 03/27/24 00:00 110 H 03/27/24 00:00 97.9 F 114 H 16 112/74 94 L Room Air 03/27/24 00:00 112/74 03/27/24 00:00 111 H 18 92 L 03/27/24 00:00 Room Air 03/26/24 23:50 111/77 03/26/24 23:50 111 H 12 93 L 03/26/24 23:45 110 H 16 92 L 03/26/24 23:30 112 H 15 92 L 03/26/24 23:15 108 H 12 95 03/26/24 23:15 Room Air 03/26/24 23:00 110 H 20 110/76 94 L Room Air 03/26/24 23:00 110/76 03/26/24 23:00 110 H 11 L 94 L 03/26/24 22:45 109 H 11 L 94 L 03/26/24 22:30 109 H 11 L 95 03/26/24 22:15 111 H 11 L 94 L 03/26/24 22:03 112 H 18 108/66 L 96 Room Air 03/26/24 22:00 108/66 L 03/26/24 22:00 110 H 14 96 03/26/24 21:45 114 H 12 95 03/26/24 21:30 114 H 12 94 L 03/26/24 21:15 113 H 19 94 L 03/26/24 21:12 97.8 F 114 H 17 117/83 93 L 03/26/24 21:00 Room Air 03/26/24 20:45 111 H 21 94 L 03/26/24 20:34 122/80 03/26/24 20:34 117 H 21 122/80 92 L 03/26/24 20:00 114 H 03/26/24 20:00 119 H 26 H 115/79 95 03/26/24 19:45 111 H 14 92 L Intake and Output 03/27/24 03/27/24 03/27/24 07:59 15:59 23:59 Intake Total 50 / 850.205 440.205 / 850.205 360 / 850.205 Output Total 3150 / 4750 1000 / 4750 600 / 4750 Balance -3100 / -3899.795 -559.795 / -3899.795 -240 / -3899.795 Intake: Intake, Oral Amount 360 / 360 Intake, Total IV Amount 50 / 490.205 440.205 / 490.205 Cefepime HCl 1 gm In 0.9 % 50 / 100 50 / 100 Sodium Chloride 50 ml @ 100 mls /hr IV Q12H [facility] Rx#:[id number] KCl 10mEq/100ml 100 ml @ 100 300 / 300 mls/hr IV Q1H [facility] Rx#:[id number] Magnesium Sulfate in Water 2 gm 50 / 50 In 50 ml @ 50 mls/hr IV ONCE ONE Rx#:[id number] Output: Output, Urine Amount 3150 / 3750 600 / 3750 Output, Urine Amount (Catheter) 1000 / 1000 [place] 1000 / 1000 Other: Number of Unmeasured Voids 0 0 0 Laboratory Results - last 24 hr 03/25/24 19:05: Hepatitis C Antibody Non reactive 03/27/24 02:20: APTT 73.4 03/27/24 06:05: WBC 9.7, RBC 5.27, Hgb 15.6, Hct 48.4, MCV 91.7, MCH 29.5, MCHC 32.2, RDW 14.3, Plt Count 178, MPV 9.3, Neut % (Auto) 74.5, Lymph % (Auto) 9.9 L , [place] % (Auto) 8.3, Eos % (Auto) 6.2, Baso % (Auto) 1.0, Neut # (Auto) 7.2, Lymph # (Auto) 1.0, [place] # (Auto) 0.8, Eos # (Auto) 0.6 H, Baso # (Auto) 0.1, Sodium 133 L, Potassium 3.1 L, Chloride 92 L, Carbon Dioxide 37 H, Anion Gap 7.1, BUN 39 H, Creatinine 2.00 H, Estimated Creat Clear 41, Estimated GFR 35 L, Est GFR ( Amer) 43 L, Glucose 105 H, Calcium 8.4, Magnesium 1.9 D, Total Bilirubin 2.9 H, AST 133 H D, ALT 696 H*, Alkaline Phosphatase 216 H, Total Protein 5.8 L, Albumin 3.1 L, Globulin 2.7, Albumin/Globulin Ratio 1.1, Triglycerides 47, Cholesterol 110 L, LDL Cholesterol Direct 76.69 L, VLDL Cholesterol 9, HDL Cholesterol 21 L, Cholesterol/HDL Ratio 5.2 H, HIV Ag/Ab Combo Qual Negative 03/27/24 08:45: APTT 61.2 03/27/24 14:14: APTT 63.5 03/27/24 17:25: Sodium 128 L, Potassium 4.2 D, Chloride 92 L, Carbon Dioxide 33 H, Anion Gap 7.2, BUN 39 H, Creatinine 1.80 H, Estimated Creat Clear 46, Es timated GFR 40 L, Est GFR ( Amer) 48 L, Glucose 142 H D, Calcium 7.9 L I & O for Labs for Last 24 Hours: Intake & Output 03/24/24 03/25/24 03/26/24 03/27/24 23:59 23:59 23:59 23:59 Intake Total 1464.365 / 1514.365 850.205 / 850.205 Output Total 42660 / 13469 4750 / 4750 Balance -46210.635 / -46995.635 -3899.795 / -3899.795 Weight 68.039 kg 68 kg Microbiology Reports for the Last 24 Hours: Microbiology 03/25/24 19:04 Blood Blood Culture - Preliminary NO GROWTH AFTER 48 HOURS 03/25/24 19:05 Blood Blood Culture - Preliminary NO GROWTH AFTER 48 HOURS 03/25/24 21:40 Urine,Clean Catch Urine Culture - Final No growth. Constitutional: Present mild distress, average body habitus, chronically ill appearing and cooperative Head: Present atraumatic and normocephalic ENT: Present normal exam Respiratory: Present crackles (bases) and normal respiratory effort; Absent rhonchi or wheezes Cardiac: Present Regular Rhythm and Tachycardia GI: Present soft, distention and tenderness Comments:: Hypoactive bowel sounds. Extremities: Present normal inspection, full ROM and edema (2+ to thighs) Skin: Present intact; Absent erythema Neuro: Present Grossly Intact, alert, awake, oriented x 3 and moves all extremities Assessment and Plan *Assessment and plan (1) Cardiogenic shock: Status: Acute Category: Medical Code(s): R57.0 - Cardiogenic shock (2) Acute decompensated heart failure: Status: Acute Category: Medical Code(s): I50.9 - Heart failure, unspecified (3) LV (left ventricular) mural thrombus: Status: Acute Category: Medical Code(s): I51.3 - Intracardiac thrombosis, not elsewhere classified (4) Transaminitis: Status: Acute Category: Medical Code(s): R74.01 - Elevation of levels of liver transaminase levels (5) RENAY (acute kidney injury): Status: Acute Category: Medical Code(s): N17.9 - Acute kidney failure, unspecified (6) Anasarca: Status: Acute Category: Medical Code(s): R60.1 - Generalized edema (7) Acute hypoxemic respiratory failure: Status: Acute Category: Medical Code(s): J96.01 - Acute respiratory failure with hypoxia Plan 53-year-old with past medical history of B12 deficiency, hypertension, BPH, back surgery. Patient has not visited PCP in several years and presents with gene ralized swelling, SOB, hypoxia initially on BiPAP in emergency room. Patient admitted for new onset CHF. CTA chest showing no PE but bilateral pleural effusions anasarca and ascites.troponin 0.36 LA 4.2-> 3.3, TSH 4.6, T4=7.2, procalcitonin 0.406, BNP 7840, AST 416, ALT 1078, alk phos 229, total bili 3.1, BUN 31, creatinine 1.8. LV thrombus noted on bedside echocardiogram in emergency room. Continues to require close monitoring. Patient critically ill. Necessitating inpatient care in the ICU. Problems as listed below: Heart failure with reduced ejection fraction Cardiogenic shock LV thrombus NSTEMI - Discussed case with cardiology, will hold on heart cath today due to changes in abdomen and increasing creatinine. Decrease diuresis to Bumex IV 1 mg daily. Continue milrinone drip. Patient has diuresed really well. Responding abruptly to pulling fluid. Recommend initiating Isordil 10 mg 3 times a day for vasodilation once milrinone has been stopped. -Patient does have an LV thrombus on CT and echo, continue heparin drip for now. -Consider beta-lexii for heart failure and Jardiance once patient is euvolemic and cardiogenic shock is resolved. -Echo obtained, preliminary read with EF less than 15-20%. Would benefit from LifeVest prior to discharge - Patient continues to diurese well. -17 L since admission. Pneumonia: Acute hypoxemic respiratory failure: -White count 9.7. - Discussed case with pulmonology, can wean antibiotics to Levaquin from a pulmonary standpoint. DuoNebs 4 times a day as needed. No need for thoracentesis. Significant improvement with diuresis. - Goal sats greater 90% Ileus: -Worsening abdominal pain overnight. CT of abdomen showed significant gaseous distention of colon. Consistent with ileus. No jayashree obstruction. Surgery evaluated this morning. Recommended rectal stimulation. Bisacodyl suppository placed. Patient has begun passing gas. Holding on NG or aggressive treatment from above as most of gases and bowel and should improve with mobilization. Low concern for ischemic bowel at this time. RENAY: Probably due to shock. Will treat as noted in cardiogenic shock and anasarca sections. BUN 39, creatinine 2.0. Repeat BMP for the afternoon. Repeat CBC, CMP, magnesium ordered for the morning. Close monitoring of electrolytes with aggressive diuresis, Hypertension: ? Hydralazine 10 mg IV every 6 hours as needed SBP over 160 Transaminitis likely secondary to ischemic hepatitis: ? Liver function improving. Bilirubin 2.9, AST 133, ALT 696. Significant improvement from admission. BPH: Finasteride 5 mg p.o. daily PPx heparin GTT FEN cardiac fluid restriction 1.5 L/day Sips and chips pending improvement in ileus and patient passing gas or having bowel movement.
[2024-03-27] MEDS: LEVOFLOXACIN/D5W 750 MG/150 ML 750 MG/150 ML PIGGYBACK 100 MG IV (20:12)
[2024-03-27] MEDS: ATORVASTATIN 40MG TABLET 80 MG PO (20:12)
[2024-03-28] VITALS (42 sets, daily range): BP systolic 102–135; BP diastolic 67–94; PULSE 74–124; RESP 11–26; TEMP 36.6–36.7; O2SAT 90–99; BMI 23.9
[2024-03-28] MEDS: HEPARIN 25,000 UNITS/D5W 500 ML 18.8 UNIT IV (04:25)
--- NOTE | 2024-03-28 06:04 | P.PN_ITS ---
Subjective Patient reports: feels better and bowel movement Exam Data for Last 24 hours Vital signs and Labs for Last 24 Hours: Temp Pulse Resp BP Pulse Ox O2 Del Method O2 Flow Rate 97.8 F 117 H 22 106/71 L 91 L Room Air 3 03/28/24 04:00 03/28/24 05:00 03/28/24 05:00 03/28/24 05:00 03/28/24 05:00 03/28/24 05:00 03/25/24 18:47 Laboratory Results - last 24 hr 03/25/24 19:05: Hepatitis C Antibody Non reactive 03/27/24 06:05: WBC 9.7, RBC 5.27, Hgb 15.6, Hct 48.4, MCV 91.7, MCH 29.5, MCHC 32.2, RDW 14.3, Plt Count 178, MPV 9.3, Neut % (Auto) 74.5, Lymph % (Auto) 9.9 L , [place] % (Auto) 8.3, Eos % (Auto) 6.2, Baso % (Auto) 1.0, Neut # (Auto) 7.2, Lymph # (Auto) 1.0, [place] # (Auto) 0.8, Eos # (Auto) 0.6 H, Baso # (Auto) 0.1, Sodium 133 L, Potassium 3.1 L, Chloride 92 L, Carbon Dioxide 37 H, Anion Gap 7.1, BUN 39 H, Creatinine 2.00 H, Estimated Creat Clear 41, Estimated GFR 35 L, Est GFR ( Amer) 43 L, Glucose 105 H, Calcium 8.4, Magnesium 1.9 D, Total Bilirubin 2.9 H, AST 133 H D, ALT 696 H*, Alkaline Phosphatase 216 H, Total Protein 5.8 L, Albumin 3.1 L, Globulin 2.7, Albumin/Globulin Ratio 1.1, Triglycerides 47, Cholesterol 110 L, LDL Cholesterol Direct 76.69 L, VLDL Cholesterol 9, HDL Cholesterol 21 L, Cholesterol/HDL Ratio 5.2 H, HIV Ag/Ab Combo Qual Negative 03/27/24 08:45: APTT 61.2 03/27/24 14:14: APTT 63.5 03/27/24 17:25: Sodium 128 L, Potassium 4.2 D, Chloride 92 L, Carbon Dioxide 33 H, Anion Gap 7.2, BUN 39 H, Creatinine 1.80 H, Estimated Creat Clear 46, Estimated GFR 40 L, Est GFR ( Amer) 48 L, Glucose 142 H D, Calcium 7.9 L I & O for Last 24 hours: Intake & Output 03/25/24 03/26/24 03/27/24 03/28/24 11:59 11:59 11:59 11:59 Intake Total 700.6 / 700.6 853.970 / 385.426 3627 / 1524 Output Total 8125 / 8125 9875 / 9875 2400 / 2400 Balance -7424.4 / -7424.4 -9021.030 / -9021.030 -876 / -876 Weight 149 lb 14.629 oz Microbiology Reports for the Last 24 Hours: Microbiology 03/25/24 19:04 Blood Blood Culture - Preliminary NO GROWTH AFTER 48 HOURS 03/25/24 19:05 Blood Blood Culture - Preliminary NO GROWTH AFTER 48 HOURS 03/25/24 21:40 Urine,Clean Catch Urine Culture - Final No growth. Constitutional Constitutional: no acute distress *Routine Respiratory Exam Respiratory: Absent respiratory distress *Routine Abdominal Exam Abdominal: Present soft Progress Note: A&P Assessment and plan (1) Paralytic ileus of small intestine and colon: Status: Acute Assessment and plan: Slowly resolving Cautiously advance diet as tolerated (as per primary service)
[2024-03-28 06:23] LABS: Red Blood Count 4.71 M/mm3 (4.60-6.20); White Blood Count 8.6 K/mm3 (4.8-10.8)
[2024-03-28 06:24] LABS: Albumin Level 2.6 g/dl (3.5-5.0); Chloride 93 mmol/L (98-107); Hematocrit 39.4 % (42.0-52.0); Lymphocytes % 13.2 % (10-50); Mean Corpuscular HGB Conc 34.5 g/dL (31.8-35.4); Mean Corpuscular Hemoglobin 28.9 pg (27.0-31.2); Mean Corpuscular Volume 83.7 fl (80-94); Mean Platelet Volume 11.5 fl (7.4-10.4); Neutrophils % 67.3 % (37.0-80.0); Platelet Count 177 K/mm3 (142-424); Potassium 3.8 mmoL/L (3.5-5.1); Red Cell Distribution Width 14.1 % (11.5-17.5); Sodium 129 mmol/L (136-145)
[2024-03-28 06:25] LABS: Basophils # 0.1 K/mm3 (0-0.2); Basophils % 0.9 % (0.1-2.0); Eosinophils # 0.7 K/mm3 (0.0-0.4); Eosinophils % 7.7 % (0.1-12.0); Lymphocytes # 1.1 K/mm3 (0.7-4.5); Monocytes # 0.9 K/mm3 (0.1-1.0); Monocytes % 10.7 % (1.7-9.3); Neutrophils # 5.8 K/mm3 (1.8-7.8)
[2024-03-28 06:26] LABS: Hemoglobin 13.8 g/dL (14.1-18.0)
[2024-03-28 06:27] LABS: Alanine Aminotransferase 477 U/L (12-78); Alkaline Phosphatase 164 U/L (38-126); Anion Gap 4.8 mEq/L (5-15); Aspartate Amino Transferase 75 U/L (17-59); Bilirubin,Total 2.9 mg/dl (0.2-1.3); Blood Urea Nitrogen 32 mg/dl (9-20); Calcium 7.3 mg/dl (8.4-10.2); Carbon Dioxide 35 mmol/L (22.0-30.0); Creatinine Clearance Estimated 46 mL/min (50-200); Estimated Glomerular Filt Rate 40 ml/min (>60); GFR (African American) 48 ML/MIN (>60); Globulin 2.5 g/dL (1.3-3.2); Glucose 91 mg/dl (74-100); Magnesium 1.9 mg/dl (1.6-2.3); Total Protein,Serum 5.1 g/dl (6.3-8.2)
[2024-03-28] MEDS: ASPIRIN EC 81MG TABLET 81 MG PO (09:12)
[2024-03-28] MEDS: BUMETANIDE 1MG/4ML VIAL 1 MG IV ×2 (09:12→17:22)
[2024-03-28] MEDS: ISOSORBIDE DINITRATE 10 MG TABLET PO ×2 (09:12→20:34)
[2024-03-28] MEDS: MAGNESIUM SULFATE IN WATER 2 GM/50 ML PIGGYBACK IV (09:13)
--- NOTE | 2024-03-28 09:49 | P.PN_ITS ---
Subjective *Date: 03/28/24 *Time: 11:52 Interval history: No acute respiratory events overnight. Patient denies any new respiratory complaints. Pulmonology Exam Inpatient Vital signs and Labs for Last 24 Hours: Temp Pulse Resp BP Pulse Ox O2 Del Method O2 Flow Rate 97.8 F 120 H 16 107/68 L 96 Room Air 3 03/28/24 04:00 03/28/24 08:00 03/28/24 08:00 03/28/24 08:00 03/28/24 08:00 03/28/24 06:59 03/25/24 18:47 Laboratory Results - last 24 hr 03/27/24 06:05: HIV Ag/Ab Combo Qual Negative 03/27/24 14:14: APTT 63.5 03/27/24 17:25: Sodium 128 L, Potassium 4.2 D, Chloride 92 L, Carbon Dioxide 33 H, Anion Gap 7.2, BUN 39 H, Creatinine 1.80 H, Estimated Creat Clear 46, Estimated GFR 40 L, Est GFR ( Amer) 48 L, Glucose 142 H D, Calcium 7.9 L 03/28/24 05:23: WBC 8.6, RBC 4.71, Hgb 13.8 L D, Hct 39.4 L, MCV 83.7, MCH 28.9, MCHC 34.5, RDW 14.1, Plt Count 177, MPV 11.5 H, Neut % (Auto) 67.3, Lymph % (Auto) 13.2, [place] % (Auto) 10.7 H, Eos % (Auto) 7.7, Baso % (Auto) 0.9, Neut # (Auto) 5.8, Lymph # (Auto) 1.1, [place] # (Auto) 0.9, Eos # (Auto) 0.7 H, Baso # (Auto) 0.1, APTT 67.0, Sodium 129 L, Potassium 3.8, Chloride 93 L, Carbon Dioxide 35 H, Anion Gap 4.8 L, BUN 32 H, Creatinine 1.80 H, Estimated Creat Clear 46, Estimated GFR 40 L, Est GFR ( Amer) 48 L, Glucose 91 D, Calcium 7.3 L, Magnesium 1.9, Total Bilirubin 2.9 H, AST 75 H D, ALT 477 H*, Alkaline Phosphatase 164 H, Total Protein 5.1 L, Albumin 2.6 L D, Globulin 2.5, Albumin/Globulin Ratio 1.0 L Temp Pulse Resp BP Pulse Ox O2 Del Method O2 Flow Rate 97.6 F 115 H 20 114/76 97 Room Air 3 03/26/24 08:00 03/26/24 12:37 03/26/24 12:00 03/26/24 12:00 03/26/24 12:37 03/26/24 12:37 03/25/24 18:47 Laboratory Results - last 24 hr 03/25/24 19:05: WBC 10.2, RBC 5.04, Hgb 14.9, Hct 47.5, MCV 94.3 H, MCH 29.6, MCHC 31.4 L, RDW 14.3, Plt Count 166, MPV 9.2, Neut % (Auto) 75.7, Lymph % (Auto) 12.2, [place] % (Auto) 9.8 H, Eos % (Auto) 1.7, Baso % (Auto) 0.5, Neut # (Auto) 7.7, Lymph # (Auto) 1.3, [place] # (Auto) 1.0, Eos # (Auto) 0.2, Baso # (Auto) 0.1, PT 15.6 H, INR 1.44 H, APTT 29.6, D-Dimer 4.78 H, Sodium 132 L, Potassium 4.6, Chloride 98, Carbon Dioxide 25, Anion Gap 13.6, BUN 31 H, Creatinine 1.80 H, Estimated Creat Clear 46, Estimated GFR 40 L, Est GFR ( Amer) 48 L, Glucose 129 H, Lactate 3.4 H, Calcium 9.5, Phosphorus 4.0, Magnesium 1.9, Total Bilirubin 3.1 H, AST 416 H*, ALT 1078 H*, Alkaline Phosphatase 229 H, Troponin I 0.36 H, C-Reactive Protein 61.5 H, NT-Pro-B Natriuret Pep 7840 H, Total Protein 6.3, Albumin 3.6, Globulin 2.7, Albumin/Globulin Ratio 1.3, Lipase 270, Procalcitonin 0.406, TSH 4.60, Thyroxine (T4) 7.2, Plasma/Serum Alcohol < 10 03/25/24 19:12: VBG pH 7.35, VBG pCO2 45.1, VBG pO2 31.0, VBG HCO3 24.3, VBG Total CO2 25.7, VBG O2 Saturation 53.9, VBG Base Excess -1.3, VBG Lactic Acid 4.2 H 03/25/24 19:17: Chlamy pneumoniae PCR Not detected, Adenovirus (PCR) Not detected, B. pertussis DNA (PCR) Not detected, Coronavirus OC43 (PCR) Not detected, Coronavirus HKU1 (PCR) Not detected, Coronavirus 229E (PCR) Not detected, SARS-CoV-2 (PCR) Not detected 03/25/24 19:17: SARS-CoV-2 (PCR) Not detected, Coronavirus NL63 (PCR) Not detected, Human Metapneumovir PCR Not detected, Influenza A (H1) PCR Not detected, Influ A (H1N1/09) PCR Not detected, Influenza A (H3) PCR Not detected, Influenza Type A (PCR) Not detected, Influenza A Untype (PCR) Not detected, Influenza Type B (PCR) Not detected 03/25/24 19:17: Influenza Type B (PCR) Not detected, M. pneumoniae (PCR) Not detected, Parainfluenza 1 (PCR) Not detected, Parainfluenza 2 (PCR) Not detected, Parainfluenza 3 (PCR) Not detected, Parainfluenza 4 (PCR) Not detected, RSV (PCR) Not detected, Entero/Rhino (PCR) Not detected 03/25/24 20:21: VBG pH 7.36, VBG pCO2 40.9, VBG pO2 42.7 H, VBG HCO3 22.6 L, VBG Total CO2 23.8, VBG O2 Saturation 75.5 H, VBG Base Excess -2.9 L, VBG Lactic Acid 3.3 H 03/25/24 21:40: Urine Color Yellow, Urine Appearance Clear, Urine pH 5.5, Ur Specific [place] 1.025, Urine Protein 2+ A, Urine Glucose (UA) Negative, Urine Ketones Negative, Urine Blood 1+ A, Urine Nitrate Negative, Urine Bilirubin 1+ A , Urine Urobilinogen 1.0, Ur Leukocyte Esterase Negative, Urine RBC 3-5, Urine WBC 3-5, Ur Squamous Epith Cells None, Urine Bacteria Trace 03/25/24 23:55: Lactate 2.0 03/26/24 01:00: APTT > 200.0 H* 03/26/24 03:00: WBC 9.6, RBC 4.96, Hgb 14.7, Hct 46.0, MCV 92.8, MCH 29.6, MCHC 31.9, RDW 14.5, Plt Count 168, MPV 9.1, Neut % (Auto) 75.1, Lymph % (Auto) 14.5, [place] % (Auto) 8.1, Eos % (Auto) 1.7, Baso % (Auto) 0.6, Neut # (Auto) 7.2, Lymph # (Auto) 1.4, [place] # (Auto) 0.8, Eos # (Auto) 0.2, Baso # (Auto) 0.1, APTT 198.4 H*, Sodium 132 L, Potassium 4.0, Chloride 99, Carbon Dioxide 24, Anion Gap 13.0, BUN 34 H, Creatinine 1.70 H, Estimated Creat Clear 48, Estimated GFR 42 L, Est GFR ( Amer) 51 L, Glucose 134 H, Calcium 9.3, Magnesium 1.6 D, Total Bilirubin 3.2 H, AST 275 H D, ALT 938 H*, Alkaline Phosphatase 211 H, Total Protein 5.8 L, Albumin 3.2 L D, Globulin 2.6, Albumin/Globulin Ratio 1.2 03/26/24 05:24: APTT 70.0 03/26/24 09:35: APTT 64.7 03/26/24 13:00: APTT 51.9 I & O for Labs for Last 24 Hours: Intake & Output 03/25/24 03/26/24 03/27/24 03/28/24 23:59 23:59 23:59 23:59 Intake Total 1464.365 / 1514.365 970.205 / 023.456 0714 / 1124 Output Total 41200 / 41092 5450 / 5550 600 / 600 Balance -60374.635 / -36811.635 -4479.795 / -4579.795 524 / 524 Weight 150 lb 149 lb 14.629 oz 152 lb 9.6 oz Intake & Output 03/23/24 03/24/24 03/25/24 03/26/24 23:59 23:59 23:59 23:59 Intake Total 1080.658 / 1080.658 Output Total 9725 / 9725 Balance -8644.342 / -8644.342 Weight 150 lb 149 lb 14.629 oz Microbiology Reports for the Last 24 Hours: Microbiology 03/25/24 19:04 Blood Blood Culture - Preliminary NO GROWTH AFTER 48 HOURS 03/25/24 19:05 Blood Blood Culture - Preliminary NO GROWTH AFTER 48 HOURS 03/25/24 21:40 Urine,Clean Catch Urine Culture - Final No growth. Constitutional: Present mild distress Head: Present normocephalic and atraumatic ENT: Present normal exam, normal oropharynx and mucous membranes moist Neck: Present normal inspection and full ROM Respiratory: Present respiratory distress, diminished air movement and able to speak in complete sentences; Absent prolonged expiratory phase or wheezes Cardiac: Present S1/S2, Tachycardia and radial pulses present GI: Present soft and distention; Absent tenderness or guarding Skin: Present intact; Absent cyanosis or jaundice Neuro: Present alert, awake and oriented x 3 Extremities: Present normal inspection; Absent clubbing or cyanosis Psychiatric: Present normal affect and cooperative Assessment and Plan *Assessment and plan (1) Pleural effusion, bilateral: Status: Acute Category: Medical Code(s): J90 - Pleural effusion, not elsewhere classified (2) Pneumonia: Status: Acute Qualifiers: Laterality: unspecified laterality Lung location: unspecified part of lung Pneumonia type: due to unspecified organism Qualified Code(s): J18.9 - Pneumonia, unspecified organism Category: Medical Code(s): J18.9 - Pneumonia, unspecified organism Plan Mr. Gonsales is a 53-year-old male never smoker, no significant prior respiratory complaint not using any oxygen supplementation or inhalers at baseline presented with ER with worsening respiratory distress bilateral lower extremity swelling found to be in heart failure exacerbation, transaminitis, bilateral pleural effusions and LV apical thrombus cardiology following, pulmonary was called for further evaluation and management. Patient today on examination does not appear to be in any respiratory distress. On room air saturating 95% and above. No significant wheezing noted on auscultation. CTA upon admission bilateral pleural effusions right greater than left. Left lingular lobar pneumonia noted. CTA negative for PE Afebrile. No evidence of leukocytosis. Comprehensive respiratory viral PCR panel negative. Blood cultures pending. Transaminitis improving. Interval update: No acute respiratory events overnight. Stable chest x-ray. Cultures negative. Antibiotics weaned to levofloxacin. Plan: Continue levofloxacin to complete a total of 5-day course. DuoNebs QID PRN No need for thoracentesis at this point of time as patient significant response to diuretic regimen and improvement in his respiratory status. Will monitor clinically. Thank you for involving pulmonary in this patient care. Will continue to follow.
--- NOTE | 2024-03-28 10:38 | IR_ITS ---
APPROVED REPORT Patient Location: Inpatient Detective Bureau Chief: Hua Stephens RT (R) PROCEDURES Selective coronary angiogram Drug-eluting stent deployment to the proximal and mid LAD in a contiguous manner Angioplasty to the first diagonal artery Drug-eluting stent deployment to the proximal dominant circumflex artery INDICATION Ischemic cardiomyopathy ejection fraction 15%, Critical coronary artery disease, Acute non-ST elevation myocardial infarction Informed consent was obtained prior to the procedure. COMPLICATIONS None Estimated Blood Loss: Less than 10 mls TECHNIQUE One percent lidocaine used to anesthetize the right anterior aspect of the wrist. The right radial artery was accessed via the Seldinger technique. A 6 [place] sheath was placed in the right radial artery. 2.5 mg of Verapamil, 800 mcg of nitroglycerin, 1mg Lidocaine and 5000 U Heparin were given through the arterial sheath. The 6 [place] JL 3 guide catheter was used to perform selective coronary angiogram. At the end the diagnostic angiogram therapeutic Was administered given a therapeutic ACT and the guide catheter was placed in the left main artery followed by 2 wires placed 1 in the LAD when the diagonal artery. Predilatation was made in both the diagonal artery and the LAD with 3 mm balloons. A 3.5 x 26 mm [place] frontier stent was placed in the mid LAD reducing the stenosis to 20%. An additional 3.5 x 38 mm Pel[place] frontier stent was placed proximal to the stent is still overlapping and deployed at 20 andrey. An additional 3.5 x 26 mm Pel[place] frontier stent was placed distal to the for stent yet still overlapping and deployed at 16 andrey. The balloon was brought back and deployed at 18, 20 and 24 andrey. Following this an additional wire was placed back in the diagonal artery where a 3 mm balloon was used to open the struts going into the diagonal artery. An additional 3.75 x 12 mm noncompliant balloon was deployed at the LAD diagonal artery junction at 24 andrey to further post dilate. There was jailing of the first diagonal artery however this was accompanied by MARY JO-3 flow. An EBU 3.75 catheter was needed for the circumflex artery where a Choice PT extra-support wire was placed distally into the circumflex artery followed by assistance of a guide liner. A 2 mm noncompliant balloon was used to predilate the stenosis followed by 3 mm noncompliant balloon deployed at 20 andrey to also predilate the stenosis. A 4 mm x 20 mm Pel[place] frontier stent was placed in the proximal to mid circumflex artery and deployed at 18 andrey reducing the critical stenosis to 0% MARY JO-3 flow was present before and after the procedure. At the end the procedure the apparatus was removed the sheath was removed and hemostasis was achieved using TR banding patient was transferred to the postop putting in stable condition ANGIOGRAPHIC RESULTS The left main artery Dominant The left anterior descending artery Has a proximal 90% stenosis which involves both the proximal mid LAD as well as the bifurcation and origin of a medium sized diagonal artery. The mid LAD has an additional 70% stenosis The circumflex artery Large and dominant with a proximal eccentric heavily calcified 90% stenosis The right coronary artery Is nondominant and has proximal calcified 30% stenosis with mid vessel 30% stenosis The NOLAN ventriculogram reveals Was not performed The left ventricular end-diastolic pressure Was not measured IMPRESSION Critical coronary artery disease as described above Successful stenting of the proximal to mid LAD critical disease reduced to 0% with 3 contiguous drug-eluting stents Successful angioplasty of the first diagonal artery Successful stenting of her proximal dominant circumflex artery critical disease reduced to 0% with 1 drug-eluting stent Known LV thrombus Critical coronary artery disease PLAN 1. Plavix and aspirin 2. Continue Xarelto 15 mg twice daily for 3 weeks followed by 20 mg daily thereafter based on LV thrombus 3. After 30 days discontinue aspirin and continue Plavix and Xarelto 4. LDL less than 55 achieved with high intensity statin 5. Avoidance of tobacco products 6. GDMT for systolic heart failure 7. LifeVest 8. Consider cardiac MRI 9. Recommend renal duplex to evaluate for renal artery stenosis based on severe nature of coronary artery disease 10. Recommend carotid noninvasive Electronically signed by : Salvador Mcgill MD 03/28/2024 14:08:28
[2024-03-28] MEDS: predniSONE 20MG TAB 20 MG PO ×2 (11:15→17:24)
--- NOTE | 2024-03-28 11:19 | P.PN_ITS ---
Subjective *Date: 03/28/24 *Time: 13:19 Medical Exam Vital signs and Labs for Last 24 Hours: Vital Signs Temp Pulse Pulse Resp BP BP Pulse Ox 03/28/24 22:00 105 H 123/80 97 03/28/24 21:00 03/28/24 21:00 109 H 122/83 98 03/28/24 20:00 110 H 03/28/24 20:00 109 H 99 03/28/24 20:00 98.0 F 111 H 20 115/77 94 L 03/28/24 19:59 112 H 115/77 97 03/28/24 19:30 111 H 20 126/91 H 96 03/28/24 19:17 03/28/24 18:30 108 H 20 123/86 99 03/28/24 17:30 113 H 21 118/81 98 03/28/24 17:00 109 H 98 03/28/24 17:00 112 H 18 111/73 96 03/28/24 17:00 03/28/24 16:30 113 H 11 L 135/88 97 03/28/24 16:00 110 H 13 119/84 98 03/28/24 16:00 111 H 03/28/24 15:30 112 H 14 118/86 98 03/28/24 15:15 112 H 13 125/86 98 03/28/24 15:00 112 H 13 119/94 H 98 03/28/24 14:45 115 H 97 03/28/24 14:39 112 H 12 114/91 H 97 03/28/24 14:25 112 H 18 112/85 98 03/28/24 14:20 113 H 18 108/81 L 98 03/28/24 14:15 113 H 18 110/83 99 03/28/24 14:09 116 H 114 H 16 119/82 97 03/28/24 12:00 117 H 03/28/24 12:00 117 H 14 113/80 95 03/28/24 11:15 117 H 26 H 99 03/28/24 11:06 03/28/24 11:00 115 H 13 98 03/28/24 11:00 110/77 03/28/24 10:45 116 H 19 97 03/28/24 10:00 106/71 L 03/28/24 10:00 113 H 13 94 L 03/28/24 09:45 116 H 15 96 03/28/24 09:30 123 H 18 98 03/28/24 09:15 117 H 19 97 03/28/24 09:00 03/28/24 09:00 106/78 L 03/28/24 08:20 74 96 03/28/24 08:00 107/68 L 03/28/24 08:00 120 H 16 96 03/28/24 07:45 115 H 17 94 L 03/28/24 07:30 120 H 17 94 L 03/28/24 07:15 124 H 20 95 03/28/24 07:00 120 H 19 94 L 03/28/24 07:00 111/75 03/28/24 06:59 03/28/24 06:00 117 H 106/72 L 90 L 03/28/24 05:00 03/28/24 05:00 117 H 22 106/71 L 91 L 03/28/24 04:00 114 H 03/28/24 04:00 115 H 92 L 03/28/24 04:00 97.8 F 113 H 16 107/67 L 91 L 03/28/24 03:00 03/28/24 03:00 113 H 13 104/68 L 92 L 03/28/24 02:00 112 H 16 109/67 L 91 L 03/28/24 01:00 03/28/24 01:00 110 H 12 102/69 L 93 L 03/28/24 00:00 114 H 03/28/24 00:00 97.9 F 109 H 14 111/74 95 03/28/24 00:00 113 H 93 L O2 Del Method O2 Flow Rate 03/28/24 22:00 Room Air 03/28/24 21:00 Room Air 03/28/24 21:00 Room Air 03/28/24 20:00 03/28/24 20:00 Room Air 03/28/24 20:00 Room Air 03/28/24 19:59 Room Air 03/28/24 19:30 Room Air 03/28/24 19:17 Nasal Cannula 2 03/28/24 18:30 Nasal Cannula 2 03/28/24 17:30 Nasal Cannula 2 03/28/24 17:00 Nasal Cannula 2 03/28/24 17:00 Nasal Cannula 2 03/28/24 17:00 Nasal Cannula 2 03/28/24 16:30 Nasal Cannula 2 03/28/24 16:00 Nasal Cannula 2 03/28/24 16:00 03/28/24 15:30 Nasal Cannula 2 03/28/24 15:15 Nasal Cannula 2 03/28/24 15:00 Nasal Cannula 2 03/28/24 14:45 Nasal Cannula 2 03/28/24 14:39 Nasal Cannula 2 03/28/24 14:25 Nasal Cannula 2 03/28/24 14:20 Nasal Cannula 2 03/28/24 14:15 Nasal Cannula 2 03/28/24 14:09 03/28/24 12:00 03/28/24 12:00 Room Air 03/28/24 11:15 03/28/24 11:06 Room Air 03/28/24 11:00 03/28/24 11:00 03/28/24 10:45 03/28/24 10:00 03/28/24 10:00 03/28/24 09:45 03/28/24 09:30 03/28/24 09:15 03/28/24 09:00 Room Air 03/28/24 09:00 03/28/24 08:20 Room Air 03/28/24 08:00 03/28/24 08:00 03/28/24 07:45 03/28/24 07:30 03/28/24 07:15 03/28/24 07:00 03/28/24 07:00 03/28/24 06:59 Room Air 03/28/24 06:00 Room Air 03/28/24 05:00 Room Air 03/28/24 05:00 Room Air 03/28/24 04:00 03/28/24 04:00 Room Air 03/28/24 04:00 Room Air 03/28/24 03:00 Room Air 03/28/24 03:00 Room Air 03/28/24 02:00 Room Air 03/28/24 01:00 Room Air 03/28/24 01:00 Room Air 03/28/24 00:00 03/28/24 00:00 Room Air 03/28/24 00:00 Room Air Intake and Output 03/28/24 03/28/24 03/28/24 07:59 15:59 23:59 Intake Total 644 / 2255.660 755.3 / 2255.660 856.360 / 2255.660 Output Total 600 / 2300 1700 / 2300 Balance 44 / -44.340 755.3 / -44.340 -843.640 / -44.340 Intake: Intake, Oral Amount 0 / 1183 480 / 1183 703 / 1183 Intake, Total IV Amount 644 / 1072.660 275.3 / 1072.660 153.360 / 1072.660 Cefepime HCl 1 gm In 0.9 % 50 / 50 Sodium Chloride 50 ml @ 100 mls /hr IV Q12H [facility] Rx#:[id number] Heparin Sodium,Porcine/D5w 500 644 / 888 109 / 888 135 / 888 ml @ 940 UNITS/HR 18.8 mls/hr IV .Q25H [facility] Rx#:[id number] Magnesium Sulfate in Water 2 gm 50 / 50 In 50 ml @ 50 mls/hr IV ONCE ONE Rx#:[id number] Output: Output, Urine Amount 700 / 700 Output, Urine Amount (Catheter) 600 / 1600 1000 / 1600 Calles 600 / 1600 1000 / 1600 Other: Number of Unmeasured Voids 0 0 Weight 69.218 kg 69.2 kg Patient Weight 03/28/24 23:59 Weight 69.2 kg Laboratory Results - last 24 hr 03/28/24 05:23: WBC 8.6, RBC 4.71, Hgb 13.8 L D, Hct 39.4 L, MCV 83.7, MCH 28.9, MCHC 34.5, RDW 14.1, Plt Count 177, MPV 11.5 H, Neut % (Auto) 67.3, Lymph % (Auto) 13.2, [place] % (Auto) 10.7 H, Eos % (Auto) 7.7, Baso % (Auto) 0.9, Neut # (Auto) 5.8, Lymph # (Auto) 1.1, [place] # (Auto) 0.9, Eos # (Auto) 0.7 H, Baso # (Auto) 0.1, APTT 67.0, Sodium 129 L, Potassium 3.8, Chloride 93 L, Carbon Dioxide 35 H, Anion Gap 4.8 L, BUN 32 H, Creatinine 1.80 H, Estimated Creat Clear 46, Estimated GFR 40 L, Est GFR ( Amer) 48 L, Glucose 91 D, Calcium 7.3 L, Magnesium 1.9, Total Bilirubin 2.9 H, AST 75 H D, ALT 477 H*, Alkaline Phosphatase 164 H, Total Protein 5.1 L, Albumin 2.6 L D, Globulin 2.5, Albumin/Globulin Ratio 1.0 L 03/28/24 14:34: Activated Clotting Time > 400 H* 03/28/24 14:59: Activated Clotting Time 308 H* D I & O for Labs for Last 24 Hours: Intake & Output 03/25/24 03/26/24 03/27/24 03/28/24 23:59 23:59 23:59 23:59 Intake Total 1464.365 / 1514.365 970.205 / 626.706 0711.660 / 2255.660 Output Total 03507 / 90835 5450 / 5550 2300 / 2300 Balance -74298.635 / -26370.635 -4479.795 / -4579.795 -44.340 / -44.340 Weight 68.039 kg 68 kg 69.2 kg Microbiology Reports for the Last 24 Hours: Microbiology 03/25/24 19:04 Blood Blood Culture - Preliminary NO GROWTH AFTER 48 HOURS 03/25/24 19:05 Blood Blood Culture - Preliminary NO GROWTH AFTER 48 HOURS Constitutional: Present mild distress, average body habitus, chronically ill appearing and cooperative Head: Present atraumatic and normocephalic ENT: Present normal exam Respiratory: Present normal respiratory effort; Absent rhonchi, wheezes or crackles (bases) Cardiac: Present Regular Rhythm and Tachycardia GI: Present soft and normal bowel sounds; Absent distention or tenderness Extremities: Present normal inspection, full ROM and edema (2+ to thighs) Skin: Present intact; Absent erythema Neuro: Present Grossly Intact, alert, awake, oriented x 3 and moves all extremities Assessment and Plan *Assessment and plan (1) Cardiogenic shock: Status: Acute Category: Medical Code(s): R57.0 - Cardiogenic shock (2) Acute decompensated heart failure: Status: Acute Category: Medical Code(s): I50.9 - Heart failure, unspecified (3) LV (left ventricular) mural thrombus: Status: Acute Category: Medical Code(s): I51.3 - Intracardiac thrombosis, not elsewhere classified (4) Transaminitis: Status: Acute Category: Medical Code(s): R74.01 - Elevation of levels of liver transaminase levels (5) RENAY (acute kidney injury): Status: Acute Category: Medical Code(s): N17.9 - Acute kidney failure, unspecified (6) Anasarca: Status: Acute Category: Medical Code(s): R60.1 - Generalized edema (7) Acute hypoxemic respiratory failure: Status: Acute Category: Medical Code(s): J96.01 - Acute respiratory failure with hypoxia Plan 53-year-old with past medical history of B12 deficiency, hypertension, BPH, back surgery. Patient has not visited PCP in several years and presents with generalized swelling, SOB, hypoxia initially on BiPAP in emergency room. Patient admitted for new onset CHF. CTA chest showing no PE but bilateral pleural effusions anasarca and ascites.troponin 0.36 LA 4.2-> 3.3, TSH 4.6, T4=7.2, procalcitonin 0.406, BNP 7840, AST 416, ALT 1078, alk phos 229, total bili 3.1, BUN 31, creatinine 1.8. LV thrombus noted on bedside echocardiogram in emergency room. Continues to require close monitoring. Patient critically ill. Necessitating inpatient care in the ICU. Problems as listed below: Heart failure with reduced ejection fraction Cardiogenic shock LV thrombus NSTEMI - Discussed case with cardiology, planning for heart cath today. Found to have significant stenosis in LAD. Multiple stents placed. See cath report for full details. Will continue milrinone drip and IV Bumex until morning. Anticipate weaning off tomorrow. Having significant output. -Remove Calles catheter. - Patient does have an LV thrombus on CT and echo, continue heparin drip for now. Plan to transition to Eliquis 5 mg twice daily -Consider beta-lexii for heart failure and Jardiance once patient is euvolemic and cardiogenic shock is resolved. -Echo obtained, EF less than 15-20%. Would benefit from LifeVest prior to dis charge - Patient continues to diurese well. -18 L since admission. Pneumonia: Acute hypoxemic respiratory failure: -White count 8.6. - Discussed case with pulmonology, recommends completing Levaquin to complete 5 days of antibiotics. DuoNebs 4 times a day as needed. No plan for thoracentesis. Responding to diuresis. Ileus: -Resolving, passed gas and had multiple bowel movements after bisacodyl suppository. Feeling much better today. Advance diet. Monitor clinically RENAY: Probably due to shock. Continue to monitor with treatment of cardiogenic shock and diuresis. BUN 32, creatinine 1.8. Repeat BMP this afternoon and CBC, CMP, magnesium ordered for the morning. Close monitoring of electrolytes with aggressive diuresis, Hypertension: Hydralazine 10 mg IV every 6 hours as needed SBP over 160 Transaminitis likely secondary to ischemic hepatitis: Liver function improving. Bilirubin 2.9, AST 75, ALT 477, alk phos 164. Drastically improving from admission. BPH: Finasteride 5 mg p.o. daily PPx heparin GTT FEN cardiac fluid restriction 1.5 L/day advance diet to cardiac
--- NOTE | 2024-03-28 11:29 | PC.NURSE ---
per Amelia in aquatic life laborer, hold on giving the famotidine and benadryl on floor. aquatic life laborer staff will admin 1100
[2024-03-28] MEDS: MIDAZOLAM HCL 1MG/ML 5ML VIAL 1 MG IV (12:37)
[2024-03-28] MEDS: METHYLPREDNISOLONE SOD SUCC 125MG VIAL 125 MG IV (12:37)
[2024-03-28] MEDS: FAMOTIDINE 20MG/2ML VIAL 20 MG IV (12:37)
[2024-03-28] MEDS: diphenhydrAMINE 50MG/ML VIAL 50 MG IV (12:37)
[2024-03-28] MEDS: FENTANYL 100MCG/2ML VIAL 50 MCG IV (12:38)
--- NOTE | 2024-03-28 12:42 | EXP.CARD.PN ---
Subjective Subjective Date: 03/28/24 Time: 09:30 Interval history: No events overnight. Pt passing gas and had 2 BM. Abd pain improving. Cr stable at 1.8. Down total of 17L. Na low at 129. Pt denies CP, SOA. CXR shows multifocal PNA. Pt agreeable to [facility] today. Exam Data for Last 24 hours Vital signs and Labs for Last 24 Hours: Temp Pulse Resp BP Pulse Ox O2 Del Method O2 Flow Rate 97.8 F 117 H 14 113/80 95 Room Air 3 03/28/24 04:00 03/28/24 12:00 03/28/24 12:00 03/28/24 12:00 03/28/24 12:00 03/28/24 12:00 03/25/24 18:47 Laboratory Results - last 24 hr 03/27/24 06:05: HIV Ag/Ab Combo Qual Negative 03/27/24 14:14: APTT 63.5 03/27/24 17:25: Sodium 128 L, Potassium 4.2 D, Chloride 92 L, Carbon Dioxide 33 H, Anion Gap 7.2, BUN 39 H, Creatinine 1.80 H, Estimated Creat Clear 46, Estimated GFR 40 L, Est GFR ( Amer) 48 L, Glucose 142 H D, Calcium 7.9 L 03/28/24 05:23: WBC 8.6, RBC 4.71, Hgb 13.8 L D, Hct 39.4 L, MCV 83.7, MCH 28.9, MCHC 34.5, RDW 14.1, Plt Count 177, MPV 11.5 H, Neut % (Auto) 67.3, Lymph % (Auto) 13.2, [place] % (Auto) 10.7 H, Eos % (Auto) 7.7, Baso % (Auto) 0.9, Neut # (Auto) 5.8, Lymph # (Auto) 1.1, [place] # (Auto) 0.9, Eos # (Auto) 0.7 H, Baso # (Auto) 0.1, APTT 67.0, Sodium 129 L, Potassium 3.8, Chloride 93 L, Carbon Dioxide 35 H, Anion Gap 4.8 L, BUN 32 H, Creatinine 1.80 H, Estimated Creat Clear 46, Estimated GFR 40 L, Est GFR ( Amer) 48 L, Glucose 91 D, Calcium 7.3 L, Magnesium 1.9, Total Bilirubin 2.9 H, AST 75 H D, ALT 477 H*, Alkaline Phosphatase 164 H, Total Protein 5.1 L, Albumin 2.6 L D, Globulin 2.5, Albumin/Globulin Ratio 1.0 L I & O for Last 24 hours: Intake & Output 03/25/24 03/26/24 03/27/24 03/28/24 23:59 23:59 23:59 23:59 Intake Total 1464.365 / 1514.365 970.205 / 004.865 2327.3 / 1399.3 Output Total 31541 / 07706 5450 / 5550 600 / 600 Balance -69244.635 / -86248.635 -4479.795 / -4579.795 799.3 / 799.3 Weight 150 lb 149 lb 14.629 oz 152 lb 9.6 oz Microbiology Reports for the Last 24 Hours: Microbiology 03/25/24 19:04 Blood Blood Culture - Preliminary NO GROWTH AFTER 48 HOURS 03/25/24 19:05 Blood Blood Culture - Preliminary NO GROWTH AFTER 48 HOURS 03/25/24 21:40 Urine,Clean Catch Urine Culture - Final No growth. Constitutional Constitutional: no acute distress and cooperative *Routine HEENT Exam Eye: Present PERRL *Routine Respiratory Exam Respiratory: Present CTA bilaterally; Absent accessory muscle use, wheezes or crackles *Routine Cardiovascular Exam Cardiovascular: Present RRR, Normal S1 and Normal S2; Absent murmur, gallop or rubs *Routine Abdominal Exam Abdominal: Present soft; Absent tenderness Comments: remains distended but soft and nontender today *Routine Extremities Exam Extremities: Present pulses intact; Absent cyanosis or edema *Routine Skin Exam Skin: Present intact; Absent erythema or wounds *Routine Neurological Exam Neurological: Present alert and oriented X3 Routine Psychiatric Exam Psychiatric: Present cooperative Progress Note: A&P Assessment and plan (1) Pleural effusion, bilateral: Status: Acute (2) Pneumonia: Status: Acute (3) Cardiogenic shock: Status: Acute (4) Paralytic ileus of small intestine and colon: Status: Acute (5) Severe left ventricular systolic dysfunction (LVSD): Status: Acute (6) Non-STEMI (non-ST elevated myocardial infarction): Status: Acute (7) Acute HFrEF (heart failure with reduced ejection fraction): Status: Acute (8) LV (left ventricular) mural thrombus: Status: Acute (9) Transaminitis: Status: Acute (10) RENAY (acute kidney injury): Status: Acute (11) Right atrial thrombus: Status: Acute Assessment and Plan Assessment and Plan for All Diagnoses:: Acute Cardiogenic Shock with Multiorgan Failure - new dx this admission with EF 15-20% - need to r/o ischemia, LHC pending pt stabilization - pt diuresed 17L - Bumex reduced to 1mg BID - EKG shows anterior q-waves - cont ASA and Heparin - 03/28 - pt stable and ready for LHC today Large LV Thrombus - 3.5 x 2.5 - cont Heparin - no indication for surgical removal at this time per Dr. Mcgill Right Atrial Thrombus - noted on CTA Chest - cont Heparin Paralytic Ileus of Colon - resolved - seen by Gen Surgery - recommend med management for now - pt has diffuse tender abdomen but has started passing gas - consider ischemic bowel due to large LV thrombus - watch for fever and trend lactate - 03/28 - resolved CONTRAST ALLERGY - pt developed itching and restlessness following CTA 03/26 - 03/28 - LHC today - ordered Prednisone x3 doses and Benadryl CKD III - Cr 2.0, came in at 1.8, unknown baseline - trend labs daily - 03/28 - stable at 1.8 Transaminitis - improving daily Pt is CV stable but critically ill with high risk for further morbidity/mortality. Will proceed with C today. Risks, benefits, and alternatives discussed with pt. He is agreeable to proceed.
[2024-03-28] MEDS: HEPARIN 1,000 UNITS/ML 10ML VIAL (CATH LAB) 10000 UNIT IV (12:49)
[2024-03-28] MEDS: LIDOCAINE 1% 10ML MDV 20 ML IJ (12:50)
[2024-03-28] MEDS: HEPARIN 1,000 UNITS/500ML NS (CATH LAB) 3000 UNIT IV (12:50)
[2024-03-28] MEDS: NITROGLYCERIN 800MCG/8ML SYR (CATH LAB) 800 MCG IA (12:51)
[2024-03-28] MEDS: VERAPAMIL 2.5MG/ML 2ML VIAL 2.5 MG IV (12:51)
[2024-03-28] MEDS: 0.9 % SODIUM CHLORIDE 500 ML 25 ML IV (12:51)
[2024-03-28] MEDS: IOPAMIDOL-370 (76%);100ML BOTTLE 125 ML IV (14:16)
[2024-03-28 14:18] LABS: CATHL Activated Clotting Time > 400 SEC (74-125)
[2024-03-28 14:19] LABS: CATHL Activated Clotting Time 308 SEC (74-125)
[2024-03-28] MEDS: CLOPIDOGREL 300MG TABLET 600 MG PO (14:21)
[2024-03-28] MEDS: MILRINONE LACTATE 20 MG in 0.9 % SODIUM CHLORIDE 80 ML 2.55 MG IV (17:22)
[2024-03-28] MEDS: MUPIROCIN 2% OINTMENT 22GM TUBE TP (17:23)
[2024-03-28] MEDS: ATORVASTATIN 40MG TABLET 80 MG PO (20:34)
--- NOTE | 2024-03-28 23:44 | PC.NURSE ---
pt ray removed at 2240. 10mL removed from ray balloon.
[2024-03-29] VITALS (18 sets, daily range): BP systolic 105–136; BP diastolic 63–100; PULSE 100–117; RESP 15–25; TEMP 36.6–36.9; O2SAT 94–100; BMI 23.9
[2024-03-29] MEDS: predniSONE 20MG TAB 20 MG PO ×2 (03:33→09:56)
[2024-03-29 06:14] LABS: Chloride 91 mmol/L (98-107)
[2024-03-29 06:15] LABS: Potassium 3.9 mmoL/L (3.5-5.1); Sodium 128 mmol/L (136-145)
[2024-03-29 06:16] LABS: Hemoglobin 13.8 g/dL (14.1-18.0); Red Blood Count 4.66 M/mm3 (4.60-6.20); White Blood Count 12.3 K/mm3 (4.8-10.8)
[2024-03-29 06:17] LABS: Alanine Aminotransferase 476 U/L (12-78); Albumin/Globulin Ratio 1.1 (1.1-1.8); Anion Gap 6.9 mEq/L (5-15); Aspartate Amino Transferase 106 U/L (17-59); Basophils % 0.1 % (0.1-2.0); Blood Urea Nitrogen 34 mg/dl (9-20); Carbon Dioxide 34 mmol/L (22.0-30.0); Creatinine Clearance Estimated 49 mL/min (50-200); Estimated Glomerular Filt Rate 42 ml/min (>60); GFR (African American) 51 ML/MIN (>60); Globulin 2.8 g/dL (1.3-3.2); Hematocrit 39.7 % (42.0-52.0); Lymphocytes # 0.7 K/mm3 (0.7-4.5); Lymphocytes % 5.5 % (10-50); Mean Corpuscular HGB Conc 34.8 g/dL (31.8-35.4); Mean Corpuscular Hemoglobin 29.6 pg (27.0-31.2); Mean Corpuscular Volume 85.2 fl (80-94); Mean Platelet Volume 10.8 fl (7.4-10.4); Monocytes # 0.3 K/mm3 (0.1-1.0); Monocytes % 2.3 % (1.7-9.3); Neutrophils # 11.3 K/mm3 (1.8-7.8); Neutrophils % 91.5 % (37.0-80.0); Platelet Count 229 K/mm3 (142-424); Red Cell Distribution Width 14.6 % (11.5-17.5); Total Protein,Serum 5.8 g/dl (6.3-8.2)
[2024-03-29 06:18] LABS: Alkaline Phosphatase 191 U/L (38-126); Bilirubin,Total 2.1 mg/dl (0.2-1.3); Calcium 7.7 mg/dl (8.4-10.2); Glucose 185 mg/dl (74-100); Magnesium 2.2 mg/dl (1.6-2.3)
[2024-03-29 06:19] LABS: MANUAL DIFFERENTIAL MANUAL DIFFERENTIAL (MANUAL DIFF)
[2024-03-29 06:50] LABS: PTT Heparin (inpatient only) 106.8 Seconds (50-75)
[2024-03-29 08:28] LABS: Lymphocytes % 12 % (10-50); Monocytes % 1 % (2-9); Neutrophils % 87 % (42-76); Platelet Estimate Normal; RBC Morphology Normal; Total Cells Counted 100
[2024-03-29] MEDS: HEPARIN 25,000 UNITS/D5W 500 ML 14 UNIT IV (09:28)
[2024-03-29] MEDS: CLOPIDOGREL 75MG TAB 75 MG PO (09:28)
[2024-03-29] MEDS: BUMETANIDE 1MG/4ML VIAL 1 MG IV (09:29)
[2024-03-29] MEDS: MUPIROCIN 2% OINTMENT 22GM TUBE TP (09:29)
[2024-03-29] MEDS: ASPIRIN EC 81MG TABLET 81 MG PO (09:29)
[2024-03-29] MEDS: ISOSORBIDE DINITRATE 10 MG TABLET PO (09:29)
--- NOTE | 2024-03-29 09:31 | CA_ITS ---
FINAL REPORT CLINICAL HISTORY: critical ascvd-cad, HTN COMPARISON: None FINDINGS: DOPPLER RENAL VESSELS HISTORY: Hypertension . FINDINGS: Intrarenal resistive indices on the right are 0.74, normal. Intrarenal resistive indices on the left are 0.68-0.76, normal . Note is made of minimal ascites in the right side of the abdomen as well as a right pleural effusion. Right main renal artery systolic velocity: 97 cm/sec. Aortic-right renal artery flow velocity ratio: 0.95 COMMENT: No evidence of hemodynamically significant renal artery stenosis . Left main renal artery systolic velocity: 125 cm/sec. Aortic-left renal artery flow velocity ratio: 1.2 COMMENT: No evidence of hemodynamically significant renal artery stenosis . IMPRESSION: No evidence of hemodynamically significant renal artery stenosis CTA or gadolinium-enhanced MR may be considered as a more sensitive exam. Alternatively noncontrast MRI may be considered for assessing main renal arteries for stenosis as a more sensitive exam if the patient has renal insufficiency. Reviewed, Interpreted and Dictated by Monse Muir MD Transcribed by Steffanie Lewis Authenticated and [facility]
--- NOTE | 2024-03-29 09:31 | CA_ITS ---
FINAL REPORT CLINICAL HISTORY: dizziness, CAD, recent cardiac stents, HF FINDINGS: RIGHT CAROTID: CCA PSV -83 cm/sec ICA PSV -70 cm/sec ICA/CCA PSV ratio -0.84. Comments: Mild plaque disease is noted. LEFTCAROTID: CCA PSV -99. cm/sec ICA PSV -60. cm/sec ICA/CCA PSV ratio -0.74. Comments: Mild plaque disease is noted. Antegrade flow is seen within the vertebral arteries. IMPRESSION: Carotid stenosis classified less than 50% Reviewed, Interpreted and Dictated by Monse Muir MD Transcribed by Tiana Leger Authenticated and [facility]
[2024-03-29] MEDS: SODIUM CHLORIDE 3% 15ML NEB 3 ML IH (09:37)
--- NOTE | 2024-03-29 09:44 | XR_ITS ---
FINAL REPORT CLINICAL HISTORY: Pneumonia COMPARISON: 03/27/2024 FINDINGS: A single view of the chest was obtained. There is significant interval improvement of pneumonia. A rounded opacity in the periphery of the left lung may represent acute more focal consolidation or even developing abscess or mass. Small pleural effusions are evident. IMPRESSION: Improving bilateral pneumonia. Persistent mass-like opacity periphery left lung. Recommend continued follow-up. Reviewed, Interpreted and Dictated by Monse Muir MD Transcribed by Awa Kan Authenticated and . [facility]
--- NOTE | 2024-03-29 09:44 | EXP.PULM.PN ---
Subjective *Date: 03/29/24 *Time: 12:37 Interval history: No acute respiratory vents overnight. Continue to remain on room air. Patient denies any new respiratory complaints. Pulmonology Exam Inpatient Vital signs and Labs for Last 24 Hours: Temp Pulse Resp BP Pulse Ox O2 Del Method O2 Flow Rate 97.9 F 111 H 18 136/86 97 Room Air 3.5 03/29/24 04:00 03/29/24 09:38 03/29/24 09:38 03/29/24 07:00 03/29/24 07:00 03/29/24 08:00 03/29/24 07:00 Laboratory Results - last 24 hr 03/28/24 14:34: Activated Clotting Time > 400 H* 03/28/24 14:59: Activated Clotting Time 308 H* D 03/29/24 05:23: WBC 12.3 H D, RBC 4.66, Hgb 13.8 L, Hct 39.7 L, MCV 85.2, MCH 29.6, MCHC 34.8, RDW 14.6, Plt Count 229 D, MPV 10.8 H, Neut % (Auto) 91.5 H, Lymph % (Auto) 5.5 L, [place] % (Auto) 2.3, Eos % (Auto) 0.0 L, Baso % (Auto) 0.1, Neut # (Auto) 11.3 H, Lymph # (Auto) 0.7, [place] # (Auto) 0.3, Eos # (Auto) 0.0, Baso # (Auto) 0.0, Total Counted 100, Neutrophils % (Manual) 87 H, Lymphocytes % (Manual) 12, Monocytes % (Manual) 1 L, Platelet Estimate Normal, RBC Morphology Normal, APTT 106.8 H*, Sodium 128 L, Potassium 3.9, Chloride 91 L, Carbon Dioxide 34 H, Anion Gap 6.9, BUN 34 H, Creatinine 1.70 H, Estimated Creat Clear 49, Estimated GFR 42 L, Est GFR ( Amer) 51 L, Glucose 185 H D, Calcium 7.7 L, Magnesium 2.2 D, Total Bilirubin 2.1 H, AST 106 H D, ALT 476 H*, Alkaline Phosphatase 191 H, Total Protein 5.8 L, Albumin 3.0 L D, Globulin 2.8, Albumin/Globulin Ratio 1.1 Temp Pulse Resp BP Pulse Ox O2 Del Method O2 Flow Rate 97.6 F 115 H 20 114/76 97 Room Air 3 03/26/24 08:00 03/26/24 12:37 03/26/24 12:00 03/26/24 12:00 03/26/24 12:37 03/26/24 12:37 03/25/24 18:47 Laboratory Results - last 24 hr 03/25/24 19:05: WBC 10.2, RBC 5.04, Hgb 14.9, Hct 47.5, MCV 94.3 H, MCH 29.6, MCHC 31.4 L, RDW 14.3, Plt Count 166, MPV 9.2, Neut % (Auto) 75.7, Lymph % (Auto) 12.2, [place] % (Auto) 9.8 H, Eos % (Auto) 1.7, Baso % (Auto) 0.5, Neut # (Auto) 7.7, Lymph # (Auto) 1.3, [place] # (Auto) 1.0, Eos # (Auto) 0.2, Baso # (Auto) 0.1, PT 15.6 H, INR 1.44 H, APTT 29.6, D-Dimer 4.78 H, Sodium 132 L, Potassium 4.6, Chloride 98, Carbon Dioxide 25, Anion Gap 13.6, BUN 31 H, Creatinine 1.80 H, Estimated Creat Clear 46, Estimated GFR 40 L, Est GFR ( Amer) 48 L, Glucose 129 H, Lactate 3.4 H, Calcium 9.5, Phosphorus 4.0, Magnesium 1.9, Total Bilirubin 3.1 H, AST 416 H*, ALT 1078 H*, Alkaline Phosphatase 229 H, Troponin I 0.36 H, C-Reactive Protein 61.5 H, NT-Pro-B Natriuret Pep 7840 H, Total Protein 6.3, Albumin 3.6, Globulin 2.7, Albumin/Globulin Ratio 1.3, Lipase 270, Procalcitonin 0.406, TSH 4.60, Thyroxine (T4) 7.2, Plasma/Serum Alcohol < 10 03/25/24 19:12: VBG pH 7.35, VBG pCO2 45.1, VBG pO2 31.0, VBG HCO3 24.3, VBG Total CO2 25.7, VBG O2 Saturation 53.9, VBG Base Excess -1.3, VBG Lactic Acid 4.2 H 03/25/24 19:17: Chlamy pneumoniae PCR Not detected, Adenovirus (PCR) Not detected, B. pertussis DNA (PCR) Not detected, Coronavirus OC43 (PCR) Not detected, Coronavirus HKU1 (PCR) Not detected, Coronavirus 229E (PCR) Not detected, SARS-CoV-2 (PCR) Not detected 03/25/24 19:17: SARS-CoV-2 (PCR) Not detected, Coronavirus NL63 (PCR) Not detected, Human Metapneumovir PCR Not detected, Influenza A (H1) PCR Not detected, Influ A (H1N1/09) PCR Not detected, Influenza A (H3) PCR Not detected, Influenza Type A (PCR) Not detected, Influenza A Untype (PCR) Not detected, Influenza Type B (PCR) Not detected 03/25/24 19:17: Influenza Type B (PCR) Not detected, M. pneumoniae (PCR) Not detected, Parainfluenza 1 (PCR) Not detected, Parainfluenza 2 (PCR) Not detected, Parainfluenza 3 (PCR) Not detected, Parainfluenza 4 (PCR) Not detected, RSV (PCR) Not detected, Entero/Rhino (PCR) Not detected 03/25/24 20:21: VBG pH 7.36, VBG pCO2 40.9, VBG pO2 42.7 H, VBG HCO3 22.6 L, VBG Total CO2 23.8, VBG O2 Saturation 75.5 H, VBG Base Excess -2.9 L, VBG Lactic Acid 3.3 H 03/25/24 21:40: Urine Color Yellow, Urine Appearance Clear, Urine pH 5.5, Ur Specific [place] 1.025, Urine Protein 2+ A, Urine Glucose (UA) Negative, Urine Ketones Negative, Urine Blood 1+ A, Urine Nitrate Negative, Urine Bilirubin 1+ A, Urine Urobilinogen 1.0, Ur Leukocyte Esterase Negative, Urine RBC 3-5, Urine WBC 3-5, Ur Squamous Epith Cells None, Urine Bacteria Trace 03/25/24 23:55: Lactate 2.0 03/26/24 01:00: APTT > 200.0 H* 03/26/24 03:00: WBC 9.6, RBC 4.96, Hgb 14.7, Hct 46.0, MCV 92.8, MCH 29.6, MCHC 31.9, RDW 14.5, Plt Count 168, MPV 9.1, Neut % (Auto) 75.1, Lymph % (Auto) 14.5, [place] % (Auto) 8.1, Eos % (Auto) 1.7, Baso % (Auto) 0.6, Neut # (Auto) 7.2, Lymph # (Auto) 1.4, [place] # (Auto) 0.8, Eos # (Auto) 0.2, Baso # (Auto) 0.1, APTT 198.4 H*, Sodium 132 L, Potassium 4.0, Chloride 99, Carbon Dioxide 24, Anion Gap 13.0, BUN 34 H, Creatinine 1.70 H, Estimated Creat Clear 48, Estimated GFR 42 L, Est GFR ( Amer) 51 L, Glucose 134 H, Calcium 9.3, Magnesium 1.6 D, Total Bilirubin 3.2 H, AST 275 H D, ALT 938 H*, Alkaline Phosphatase 211 H, Total Protein 5.8 L, Albumin 3.2 L D, Globulin 2.6, Albumin/Globulin Ratio 1.2 03/26/24 05:24: APTT 70.0 03/26/24 09:35: APTT 64.7 03/26/24 13:00: APTT 51.9 I & O for Labs for Last 24 Hours: Intake & Output 03/26/24 03/27/24 03/28/24 03/29/24 23:59 23:59 23:59 23:59 Intake Total 1464.365 / 1514.365 970.205 / 546.142 3408.660 / 2255.660 310 / 310 Output Total 58209 / 83594 5450 / 5550 2300 / 2300 570 / 570 Balance -58226.635 / -09075.635 -4479.795 / -4579.795 -44.340 / -44.340 -260 / -260 Weight 149 lb 14.629 oz 152 lb 8.958 oz 152 lb 8.958 oz Intake & Output 03/23/24 03/24/24 03/25/24 03/26/24 23:59 23:59 23:59 23:59 Intake Total 1080.658 / 1080.658 Output Total 9725 / 9725 Balance -8644.342 / -8644.342 Weight 150 lb 149 lb 14.629 oz Constitutional: Present mild distress Head: Present normocephalic and atraumatic ENT: Present normal exam, normal oropharynx and mucous membranes moist Neck: Present normal inspection and full ROM Respiratory: Present respiratory distress, diminished air movement and able to speak in complete sentences; Absent prolonged expiratory phase or wheezes Cardiac: Present S1/S2, Tachycardia and radial pulses present GI: Present soft and distention; Absent tenderness or guarding Skin: Present intact; Absent cyanosis or jaundice Neuro: Present alert, awake and oriented x 3 Extremities: Present normal inspection; Absent clubbing or cyanosis Psychiatric: Present normal affect and cooperative Assessment and Plan *Assessment and plan (1) Pleural effusion, bilateral: Status: Acute Category: Medical Code(s): J90 - Pleural effusion, not elsewhere classified (2) Pneumonia: Status: Acute Qualifiers: Laterality: unspecified laterality Lung location: unspecified part of lung Pneumonia type: due to unspecified organism Qualified Code(s): J18.9 - Pneumonia, unspecified organism Category: Medical Code(s): J18.9 - Pneumonia, unspecified organism Plan Mr. Gonsales is a 53-year-old male never smoker, no significant prior respiratory complaint not using any oxygen supplementation or inhalers at baseline presented with ER with worsening respiratory distress bilateral lower extremity swelling found to be in heart failure exacerbation, transaminitis, bilateral pleural effusions and LV apical thrombus cardiology following, pulmonary was called for further evaluation and management. Patient today on examination does not appear to be in any respiratory distress. On room air saturating 95% and above. No significant wheezing noted on auscultation. CTA upon admission bilateral pleural effusions right greater than left. Left lingular lobar pneumonia noted. CTA negative for PE Afebrile. No evidence of leukocytosis. Comprehensive respiratory viral PCR panel negative. Blood cultures pending. Transaminitis improving. Interval update: No acute respiratory events overnight. Continue to receive levofloxacin. Slight worsening leukocytosis. Stable oxygen requirements. Improving infiltrates. Continue show left lingular opacity. Plan: Continue levofloxacin to complete a total of 5-day course. DuoNebs QID PRN No need for thoracentesis at this point of time as patient significant response to diuretic regimen and improvement in his respiratory status. Will monitor clinically. Thank you for involving pulmonary in this patient care. Will follow the patient in pulmonary clinic 2 to 4 weeks post discharge with a repeat chest x-ray PA and lateral prior to clinic visit
[2024-03-29] MEDS: APIXABAN 5MG TABLET 5 MG PO (09:54)
[2024-03-29] MEDS: DAPAGLIFLOZIN PROPANEDIOL 10 MG TABLET PO (09:54)
[2024-03-29] MEDS: CARVEDILOL 3.125MG TABLET 3.125 MG PO (09:55)
[2024-03-29] MEDS: SACUBITRIL/VALSARTAN 24-26MG TABLET 1 EACH PO (09:55)
--- NOTE | 2024-03-29 11:31 | P.PN_ITS ---
Subjective Subjective Date: 03/29/24 Time: 10:00 Interval history: Successful left heart cath yesterday with stenting of LAD and left circumflex. Labs and vital stable this morning. Patient reports feeling proved-denies chest pain shortness of breath and palpitations, abdominal pain Exam Data for Last 24 hours Vital signs and Labs for Last 24 Hours: Temp Pulse Resp BP Pulse Ox O2 Del Method O2 Flow Rate 97.9 F 111 H 18 136/86 97 Room Air 3.5 03/29/24 04:00 03/29/24 09:38 03/29/24 09:38 03/29/24 07:00 03/29/24 07:00 03/29/24 09:05 03/29/24 07:00 Laboratory Results - last 24 hr 03/28/24 14:34: Activated Clotting Time > 400 H* 03/28/24 14:59: Activated Clotting Time 308 H* D 03/29/24 05:23: WBC 12.3 H D, RBC 4.66, Hgb 13.8 L, Hct 39.7 L, MCV 85.2, MCH 29.6, MCHC 34.8, RDW 14.6, Plt Count 229 D, MPV 10.8 H, Neut % (Auto) 91.5 H, L ymph % (Auto) 5.5 L, [place] % (Auto) 2.3, Eos % (Auto) 0.0 L, Baso % (Auto) 0.1, Neut # (Auto) 11.3 H, Lymph # (Auto) 0.7, [place] # (Auto) 0.3, Eos # (Auto) 0.0, Baso # (Auto) 0.0, Total Counted 100, Neutrophils % (Manual) 87 H, Lymphocytes % (Manual) 12, Monocytes % (Manual) 1 L, Platelet Estimate Normal, RBC Morphology Normal, APTT 106.8 H*, Sodium 128 L, Potassium 3.9, Chloride 91 L, Carbon Dioxide 34 H, Anion Gap 6.9, BUN 34 H, Creatinine 1.70 H, Estimated Creat Clear 49, Estimated GFR 42 L, Est GFR ( Amer) 51 L, Glucose 185 H D, Calcium 7.7 L, Magnesium 2.2 D, Total Bilirubin 2.1 H, AST 106 H D, ALT 476 H*, Alkaline Phosphatase 191 H, Total Protein 5.8 L, Albumin 3.0 L D, Globulin 2.8, Albumin/Globulin Ratio 1.1 I & O for Last 24 hours: Intake & Output 03/26/24 03/27/24 03/28/24 03/29/24 23:59 23:59 23:59 23:59 Intake Total 1464.365 / 1514.365 970.205 / 608.129 0944.660 / 2255.660 310 / 310 Output Total 65205 / 17995 5450 / 5550 2300 / 2300 1070 / 1070 Balance -90353.635 / -75149.635 -4479.795 / -4579.795 -44.340 / -44.340 -760 / - 760 Weight 149 lb 14.629 oz 152 lb 8.958 oz 152 lb 8.958 oz Constitutional Constitutional: no acute distress and cooperative *Routine HEENT Exam Eye: Present PERRL *Routine Respiratory Exam Respiratory: Present CTA bilaterally; Absent accessory muscle use, wheezes or crackles *Routine Cardiovascular Exam Cardiovascular: Present RRR, Normal S1 and Normal S2; Absent murmur, gallop or rubs Comments: Right radial cath site normal on inspection and palpation, bandaged *Routine Abdominal Exam Abdominal: Present soft; Absent tenderness *Routine Extremities Exam Extremities: Present pulses intact; Absent cyanosis or edema *Routine Skin Exam Skin: Present intact; Absent erythema or wounds *Routine Neurological Exam Neurological: Present alert and oriented X3 Routine Psychiatric Exam Psychiatric: Present cooperative Progress Note: A&P Assessment and plan (1) Cardiogenic shock: Status: Acute (2) Pleural effusion, bilateral: Status: Acute (3) Pneumonia: Status: Acute (4) Paralytic ileus of small intestine and colon: Status: Acute (5) Severe left ventricular systolic dysfunction (LVSD): Status: Acute (6) Non-STEMI (non-ST elevated myocardial infarction): Status: Acute (7) Acute HFrEF (heart failure with reduced ejection fraction): Status: Acute (8) LV (left ventricular) mural thrombus: Status: Acute (9) Transaminitis: Status: Acute (10) RENAY (acute kidney injury): Status: Acute (11) Right atrial thrombus: Status: Acute Assessment and Plan Assessment and Plan for All Diagnoses:: Acute Cardiogenic Shock with Multiorgan Failure - new dx this admission with EF 15-20% - need to r/o ischemia, LHC pending pt stabilization - pt diuresed 17L - Bumex reduced to 1mg BID - EKG shows anterior q-waves - cont ASA and Heparin - 03/28 - pt stable and ready for C today - 03/29 - shock resolved. DC milrinone, increase Isordil to 20mg TID, Add Entre sto and Coreg. Awaiting [employer] approval. Large LV Thrombus - 3.5 x 2.5 - cont Heparin - no indication for surgical removal at this time per Dr. Mcgill - 03/29 - stable, change from Heparin to PO Eliquis 5mg BID MV-CAD - new dx this admission with q-waves anterior leads and new EF 15-20% - C 03/28 - stented critical LAD and LCX - Cont DAPT, Statin, add BB Right Atrial Thrombus - noted on CTA Chest - cont Heparin - 03/29 - stable, change from Heparin to PO Eliquis 5mg BID Paralytic Ileus of Colon - resolved - seen by Gen Surgery - recommend med management for now - pt has diffuse tender abdomen but has started passing gas - consider ischemic bowel due to large LV thrombus - watch for fever and trend lactate - 03/28 - resolved CONTRAST ALLERGY - pt developed itching and restlessness following CTA 03/26 - 03/28 - [facility] today - ordered Prednisone x3 doses and Benadryl CKD III - Cr 2.0, came in at 1.8, unknown baseline - trend labs daily - 03/28 - stable at 1.8 Transaminitis - improving daily Pt is CV stable and improving. Med changes as noted above. Ok to transfer from ICU to Telemetry. Case management working on insurance approval. Maybe home tomorrow.
[2024-03-29] MEDS: ISOSORBIDE DINITRATE 20 MG TABLET PO (13:44)
--- NOTE | 2024-03-29 15:50 | PC.NURSE ---
Patient adament that he was going to leave and wanted to be in his own home. MD called and came to see patient. MD explained to patient the risks of going home and the need to be monitored at the hospital [facility]. Patient stated he understood the risks but still wanted to go home. MD explained importance of taking prescribed medications and voucher for eliquis given to patient for a month supply. Patient instructed on cathlab instructions about radial site and paperwork sent home with instructions.
--- NOTE | 2024-03-29 16:28 | P.DS_ITS ---
General Admission date:: 03/25/24 HPI HPI HPI: This is a 53-year-old gentleman seen in consultation regarding possible ileus versus obstruction. Please see HPI forwarded from admission H&P below. No bowel movement or flatus right. The patient states that he has significant flatus yesterday. CT abdomen/pelvis completed overnight - IMPRESSION: Moderate gaseous distension of the cecum, ascending and transverse colon. No obstructing lesion visualized. Suspicious for ileus. Short interval follow-up examination recommended to evaluate contrast passage to the colon. Bilateral pleural effusions, ascites and body wall edema, suspicious for anasarca/volume overload. Forwarded from admission H&P: 53-year-old with past medical history of B12 deficiency, hypertension, BPH, back surgery. Patient has not visited PCP in several years and presents with generalized swelling, SOB, hypoxia initially on BiPAP in emergency room. Patient states symptoms have been occurring for several weeks, but gotten worse over past few days. Patient presented to emergency room on BiPAP, but gradually weaned to 2 to 3 L nasal cannula several hours after admission in ED. Admits to dry cough with chest discomfort with coughing. States he suffered from abdominal discomfort and distention for several weeks. Also admits to some ataxia for weeks. Also admits to cold clammy hands over past few days. Denies fevers, chills, shortness of breath, recent travel, blurry vision, headaches. CTA chest showing no PE but bilateral pleural effusions anasarca and ascites. LA 4.2-> 3.3, TSH 4.6, T=47.2, procalcitonin 0.406, troponin 0.36. BNP 7840, AST 416, ALT 1078, alk phos 229, total bili 3.1, BUN 31, creatinine 1.8. LV thrombus noted on bedside echocardiogram in emergency room. Hospital Course Hospital Course Hospital Course: 53-year-old with past medical history of B12 deficiency, hypertension, BPH, back surgery. Patient has not visited PCP in several years and presents with generalized swelling, SOB, hypoxia initially on BiPAP in emergency room. Patient admitted for new onset CHF. CTA chest showing no PE but bilateral pleural effusions anasarca and ascites.troponin 0.36 LA 4.2-> 3.3, TSH 4.6, T4=7.2, procalcitonin 0.406, BNP 7840, AST 416, ALT 1078, alk phos 229, total bili 3.1, BUN 31, creatinine 1.8. LV thrombus noted on bedside echocardiogram in emergency room. Continues to require close monitoring. Patient critically ill. Necessitating inpatient care in the ICU. Problems as listed below: Heart failure with reduced ejection fraction Cardiogenic shock LV thrombus NSTEMI Hypertension - Discussed case with cardiology, planning for heart cath today. Found to have significant stenosis in LAD. Multiple stents placed. See cath report for full details. - Echo obtained, EF less than 15-20%. Would benefit from LifeVest prior to discharge - HFrEF exacerbation clinically improved with milrinone and Bumex drips. Will continue milrinone drip and IV Bumex until morning. Total of net -19L aduring admission. - Patient does have an LV thrombus on CT and echo, Eliquis 5 mg twice daily with DAPT for 30 days. - GDMT with metoprolol, MRA, SGLTi, and Entresto were started today. Recommended patient remain inpatient to monitor tolerance, and to have Lifevest placed. - However, patient was adamant he wanted to go home today. Risks were extensively discussed including and patient understood and wanted to leave AMA. Pneumonia: Acute hypoxemic respiratory failure: - Levaquin for 5 days. Ileus: -Resolving, passed gas and had multiple bowel movements after bisacodyl suppository. Feeling much better today. Advance diet. Monitor clinically RENAY: Creatinine peaked at 2.0, improving to 1.7 today with resolution of shock as above and improvement in volume overload. Transaminitis likely secondary to ischemic hepatitis: Liver function improving. Bilirubin 2.9, AST 75, ALT 477, alk phos 164. Drastically improving from admission. BPH: Finasteride 5 mg p.o. daily Exam Data for Last 24 hours Vital signs and Labs for Last 24 Hours: Temp Pulse Resp BP Pulse Ox O2 Del Method O2 Flow Rate 98.1 F 111 H 22 112/68 96 Room Air 3.5 03/29/24 12:00 03/29/24 12:00 03/29/24 12:00 03/29/24 13:47 03/29/24 12:00 03/29/24 15:00 03/29/24 07:00 Laboratory Results - last 24 hr 03/29/24 05:23: WBC 12.3 H D, RBC 4.66, Hgb 13.8 L, Hct 39.7 L, MCV 85.2, MCH 29.6, MCHC 34.8, RDW 14.6, Plt Count 229 D, MPV 10.8 H, Neut % (Auto) 91.5 H, Lymph % (Auto) 5.5 L, [place] % (Auto) 2.3, Eos % (Auto) 0.0 L, Baso % (Auto) 0.1, Neut # (Auto) 11.3 H, Lymph # (Auto) 0.7, [place] # (Auto) 0.3, Eos # (Auto) 0.0, Baso # (Auto) 0.0, Total Counted 100, Neutrophils % (Manual) 87 H, Lymphocytes % (Manual) 12, Monocytes % (Manual) 1 L, Platelet Estimate Normal, RBC Morphology Normal, APTT 106.8 H*, Sodium 128 L, Potassium 3.9, Chloride 91 L, Carbon Dioxide 34 H, Anion Gap 6.9, BUN 34 H, Creatinine 1.70 H, Estimated Creat Clear 49, Estimated GFR 42 L, Est GFR ( Amer) 51 L, Glucose 185 H D, Calcium 7.7 L, Magnesium 2.2 D, Total Bilirubin 2.1 H, AST 106 H D, ALT 476 H*, Alkaline Phosphatase 191 H, Total Protein 5.8 L, Albumin 3.0 L D, Globulin 2.8, Albumin/Globulin Ratio 1.1 I & O for Last 24 hours: Intake & Output 03/26/24 03/27/24 03/28/24 03/29/24 23:59 23:59 23:59 23:59 Intake Total 1464.365 / 1514.365 970.205 / 035.415 5053.660 / 2255.660 310 / 310 Output Total 70701 / 44953 5450 / 5550 2300 / 2300 1390 / 1390 Balance -89724.635 / -89124.635 -4479.795 / -4579.795 -44.340 / -44.340 -1080 / -1080 Weight 68 kg 69.2 kg 69.2 kg Constitutional Constitutional: no acute distress *Routine HEENT Exam Head: Present normocephalic Eye: Present EOMI and PERRL ENT: Present mucous membranes moist *Routine Neck Exam Neck: Present supple; Absent lymphadenopathy *Routine Respiratory Exam Respiratory: Present CTA bilaterally *Routine Cardiovascular Exam Cardiovascular: Present RRR *Routine Abdominal Exam Abdominal: Present soft and normoactive bowel sounds; Absent tenderness *Routine Extremities Exam Extremities: Absent cyanosis, clubbing or edema *Routine Skin Exam Skin: Present warm; Absent rash *Routine Neurological Exam Neurological: Present alert and oriented X3 Results Data Completed and Pending Labs on day of discharge: Labs from last 24 hours 03/29/24 05:23 WBC 12.3 H D RBC 4.66 Hgb 13.8 L Hct 39.7 L MCV 85.2 MCH 29.6 MCHC 34.8 RDW 14.6 Plt Count 229 D MPV 10.8 H Neut % (Auto) 91.5 H Lymph % (Auto) 5.5 L [place] % (Auto) 2.3 Eos % (Auto) 0.0 L Baso % (Auto) 0.1 Neut # (Auto) 11.3 H Lymph # (Auto) 0.7 [place] # (Auto) 0.3 Eos # (Auto) 0.0 Baso # (Auto) 0.0 Total Counted 100 Neutrophils % (Manual) 87 H Lymphocytes % (Manual) 12 Monocytes % (Manual) 1 L Platelet Estimate Normal RBC Morphology Normal APTT 106.8 H* Sodium 128 L Potassium 3.9 Chloride 91 L Carbon Dioxide 34 H Anion Gap 6.9 BUN 34 H Creatinine 1.70 H Estimated Creat Clear 49 Estimated GFR 42 L Est GFR ( Amer) 51 L Glucose 185 H D Calcium 7.7 L Magnesium 2.2 D Total Bilirubin 2.1 H AST 106 H D ALT 476 H* Alkaline Phosphatase 191 H Total Protein 5.8 L Albumin 3.0 L D Globulin 2.8 Albumin/Globulin Ratio 1.1 Preliminary micro results at discharge 03/25/24 19:04 Blood Culture - Preliminary Blood NO GROWTH AFTER 48 HOURS 03/25/24 19:05 Blood Culture - Preliminary Blood NO GROWTH AFTER 48 HOURS DS: Diagnosis Discharge Diagnosis (1) Pleural effusion, bilateral: Status: Acute Code(s): J90 - Pleural effusion, not elsewhere classified (2) Pneumonia: Status: Resolved Code(s): J18.9 - Pneumonia, unspecified organism Qualifiers: Laterality: unspecified laterality Lung location: unspecified part of lung Pneumonia type: due to unspecified organism Qualified Code(s): J18.9 - Pneumonia, unspecified organism Meds Home Medications and Allergies Home Medications ?Medication ?Instructions ?Recorded ?Confirmed ?Type apixaban 5 mg tablet (Eliquis) 5 mg PO BID 30 days #60 tabs 03/29/24 04/03/24 Rx aspirin 81 mg tablet,delayed 81 mg PO DAILY 30 days #30 tabs 04/05/24 Rx release atorvastatin 80 mg tablet 80 mg PO HS #30 tabs 04/05/24 Rx bumetanide 1 mg tablet 2 mg (2 x 1 mg) PO DAILY #60 tabs 04/05/24 Rx clopidogrel 75 mg tablet 75 mg PO DAILY 30 days #30 tabs 04/05/24 Rx potassium chloride 20 mEq 20 meq PO BID 30 days #60 tabs 04/05/24 Rx tablet,extended release(part/cryst) (Klor-Con M) sacubitril 24 mg-valsartan 26 mg 1 tab PO BID 30 days #60 tabs 04/05/24 Rx tablet tamsulosin 0.4 mg capsule 0.4 mg PO HS 30 days #30 caps 04/05/24 Rx New Prescriptions to Start Prescriptions: Jhon Joseph Allergies Allergy/AdvReac Type Severity Reaction Status Date / Time diclofenac (DICLOFENAC) Allergy Unknown Verified 08/12/21 13:08 Penicillins (PENICILLINS) Allergy Unknown Verified 08/12/21 13:08 propoxyphene (PROPOXYPHENE) Allergy Unknown Verified 08/12/21 13:08 tramadol (TRAMADOL) Allergy Unknown Verified 08/12/21 13:08 Discharge Plan Disposition Patient Disposition: Left Against Medical Advice Condition: Critical Patient Discharge Instructions Print Language: Swedish Providers Admit Provider: Jewel Martinez Attending Provider: Jewel Martinez
--- NOTE | 2024-03-30 15:12 | CARE MANAGER ---
Spoke with patient prior to discharge about need for Medicaid with the orders for a life vest and the new medication he will require after discharge. He only has Medicare A, and would greatly benefit from Medicaid. Luis E has been working with him and I have been assisting with filling out paperwork with [employer] for assistance. Patient chose to sign out AMA prior to receiving Medicaid, therefor was unable to obtain the life vest. Per Luis E, he has now been approved for Medicaid. I attempted to call patient to notify him of this as well as to have him contact [employer] if he is interested in wearing the life vest. I was unable to reach him via phone and he does not have an active voicemail. I updated Blanca with [employer] so that she can follow up with him via text.
== END 2024-03-29 15:34 | disposition left against medical advice (07) | DRG 321 ==
LOC: ER 21:57 → 2ND 03-26 00:12 → ICU 03-26 15:37
PROVIDERS: Internal Medicine; Internal Medicine Adolescent Medicine; Nurse Practitioner Family; Admitting Provider Internal Medicine; Emergency Provider Emergency Medicine; Visit Provider Internal Medicine
PROC: 027137Z Dilation of Coronary Artery, Two Arteries with Four or More Drug-eluting Intraluminal Devices, Percutaneous Approach (ICD-10-PCS; principal; 2024-03-28 11:30)
DX: I21.4 Non-ST elevation (NSTEMI) myocardial infarction (principal); I50.23 Acute on chronic systolic (congestive) heart failure; R57.0 Cardiogenic shock; J18.9 Pneumonia, unspecified organism; J96.01 Acute respiratory failure with hypoxia; N17.9 Acute kidney failure, unspecified; K56.0 Paralytic ileus; I13.0 Hypertensive heart and chronic kidney disease with heart failure and stage 1 through stage 4 chronic kidney disease, or unspecified chronic kidney disease; I25.5 Ischemic cardiomyopathy; N18.30 Chronic kidney disease, stage 3 unspecified; I51.3 Intracardiac thrombosis, not elsewhere classified; Z79.899 Other long term (current) drug therapy; E53.8 Deficiency of other specified B group vitamins; Z87.891 Personal history of nicotine dependence
CPT/HCPCS: 36415; 71045; 71275; 74018; 74176; 74177; 80048; 80053; 80061; 80320; 81001; 82803; 83605; 83690; 83735; 83880; 84100; 84145; 84436; 84443; 84484; 85007; 85025; 85347; 85378; 85610; 85730; 86140; 86803; 87040; 87086; 87389; 87633; 87636; 92920; 92928; 93005; 93306; 93880; 93976; 94660; 97163; 97165; 99152; 99153; 99291; C1725; C1769; C1874; C9600; J0131; J0456; J0692; J1200; J1644; J1939; J1956; J2250; J2260; J2270; J2405; J2919; J3010; J3372; J3475; J3480; J7050; Q9957; Q9963; Q9967; S0028

== ENCOUNTER 2024-04-03 06:27 | Inpatient (IN) | payer MEDICARE, SELFPAY ==
[2024-04-03] VITALS (17 sets, daily range): BP systolic 109–135; BP diastolic 62–95; PULSE 104–120; RESP 13–33; TEMP 36.4–37; O2SAT 93–100; BMI 23.5
--- NOTE | 2024-04-03 06:32 | ECG_ITS ---
APPROVED REPORT Exam: Resting ECG HR:119 bpm ECG Measurements Heart Rate 119 AXES CA 159 P 76 QRSd 98 QRS -46 QT 432 T 87 QTc 503 Conclusion SINUS TACHYCARDIA POSSIBLE LEFT ATRIAL ENLARGEMENT [-0.1mV P-WAVE IN V1/V2] LEFT ANTERIOR FASCICULAR BLOCK [QRS AXIS <= -45, QR IN I, RS IN II] NONSPECIFIC T-WAVE ABNORMALITY ABNORMAL ECG UNCONFIRMED REPORT Electronically signed by : HOLDEN MAGALLON, 04/03/2024 07:06:25
--- NOTE | 2024-04-03 06:34 | ED_ITS ---
Discharge Plan Disposition Patient Disposition: Admitted Chief Complaint: Chest Pain Prescriptions Prescriptions: No Action atorvastatin 40 mg Tablet 80 mg PO HS 30 Days Qty: 60 0RF clopidogrel 75 mg Tablet 75 mg PO DAILY 30 Days Qty: 30 0RF aspirin 81 mg Tablet,Delayed Release (Dr/Ec) 81 mg PO DAILY 30 Days Qty: 30 0RF carvedilol 3.125 mg Tablet 3.125 mg PO BID 30 Days Qty: 60 0RF Eliquis 5 mg Tablet 5 mg PO BID 30 Days Qty: 60 0RF Referrals Follow up/Referrals: Provider,Referral, MD [Primary Care Provider] - See instructions Clinical Impressions Clinical Impression: CHF (congestive heart failure), Elevated troponin, Bed bug bite, Bilateral edema of lower extremity, Medically noncompliant, Hyponatremia, Pulmonary infiltrate Print Language Print Language: Greenlandic Discharge ED Provider: Murray Brown General Adult HPI <Murray Brown MD - Last Filed: 04/03/24 07:01> General Chief complaint: Chest Pain Stated complaint: chest pain Time Seen by Provider: 04/03/24 06:30 History of Present Illness HPI narrative: 53-year-old male with history of recent admission for acute heart failure, LV thrombus, right atrial thrombus, multiple stents placement presents for acute onset cough and chest pain. He reports that he felt okay when he went to sleep and when he woke at 530 he was coughing profusely and having chest pain. Under with EMS no ST elevation, normal vital signs besides tachycardia. Was given 324 of aspirin. Related Data Previous Rx's ?Medication ?Instructions ?Recorded apixaban 5 mg tablet (Eliquis) 5 mg PO BID 30 days #60 tabs 03/29/24 aspirin 81 mg tablet,delayed 81 mg PO DAILY 30 days #30 tabs 03/29/24 release atorvastatin 40 mg tablet 80 mg (2 x 40 mg) PO HS 30 days 03/29/24 #60 tabs carvedilol 3.125 mg tablet 3.125 mg PO BID 30 days #60 tabs 03/29/24 clopidogrel 75 mg tablet 75 mg PO DAILY 30 days #30 tabs 03/29/24 Allergies Allergy/AdvReac Type Severity Reaction Status Date / Time diclofenac (DICLOFENAC) Allergy Unknown Verified 08/12/21 13:08 Penicillins (PENICILLINS) Allergy Unknown Verified 08/12/21 13:08 propoxyphene (PROPOXYPHENE) Allergy Unknown Verified 08/12/21 13:08 tramadol (TRAMADOL) Allergy Unknown Verified 08/12/21 13:08 PFSH <Murray Brown MD - Last Filed: 04/03/24 07:01> [facility] Disclaimer: The information contained in this section may have been updated after the patient was seen, as this information can be updated by other users. Medical History (Updated 04/03/24 @ 09:32 by Mark Celestin MD) Severe left ventricular systolic dysfunction (LVSD) Transaminitis RENAY (acute kidney injury) Anasarca LV (left ventricular) mural thrombus Acute hypoxemic respiratory failure Cardiogenic shock Non-STEMI (non-ST elevated myocardial infarction) Acute HFrEF (heart failure with reduced ejection fraction) Pneumonia Pleural effusion, bilateral Vitamin B12 deficiency Allergic rhinitis BPH (benign prostatic hyperplasia) Hyperlipidemia Insomnia Partial tear of right Achilles tendon Social History Smoking Status: Never smoker alcohol intake: never substance use type: former substance user and heroin current occupational status: unemployed Travel in the last 8 weeks: None Other Medical History Have you received the Flu Vaccine for this season: No Have you received the Pneumonia Vaccine: No <Murray Brown MD - Last Filed: 04/03/24 07:01> ROS Obtained: Yes All systems reviewed & no additional complaints except as documented Physical Exam <Murray Brown MD - Last Filed: 04/03/24 07:01> General General appearance: alert and in no apparent distress Head Head exam: atraumatic and normocephalic Eye Eye exam: Present normal appearance, PERRL and EOMI ENT ENT exam: Present normal oropharynx and normal external ear exam Neck Neck exam: Present normal inspection and full ROM Chest Chest inspection: Present normal inspection and symmetric chest wall rise; Absent tenderness Respiratory Respiratory exam: Present normal lung sounds bilaterally; Absent respiratory distress Cardiovascular Cardiovascular exam: Present regular rate and normal rhythm Abdominal Exam Abdominal exam: Present soft; Absent distention, tenderness or guarding Extremities Exam Extremities exam: Present normal inspection and edema; Absent joint swelling Back Exam Back exam: Present normal inspection; Absent tenderness Neurological Exam Neurological exam: Present alert and oriented X3; Absent motor sensory deficit Psychiatric Psychiatric exam: Present normal affect and normal mood Skin Skin exam: Present warm, dry and normal color Lymphatic Lymphatic Findings: no adenopathy Medical Decision Making <Murray Brown MD - Last Filed: 04/03/24 07:01> Medical Records Medical records reviewed: Yes I reviewed the patient's medical records. Screening: Per USPSTF and CDC recommendations, given the prevalence of disease in our region, it is our hospital?s policy to screen for HIV and viral Hepatitis for all patients aged 18 and over and those with ongoing risk factors. Matty Inquiry Pt receiving controlled substance: No Matty was queried for this patient: No Vital Signs: 04/03/24 06:27 04/03/24 06:56 04/03/24 07:00 Temperature 98.6 F Temperature Source Oral Pulse Rate 115 H 115 H Pulse Rate [Left Radial] 118 H Respiratory Rate 16 20 Blood Pressure 122/95 H Blood Pressure [Right Arm] 112/79 Blood Pressure Mean [Right Arm] 90 Blood Pressure Source [Right Arm] Automatic Cuff Blood Pressure Position [Right Arm] Supine 02 Sat by Pulse Oximetry 97 97 Oxygen Delivery Method Room Air Room Air Oxygen Flow Rate (LPM) 04/03/24 07:30 04/03/24 08:00 04/03/24 08:12 Temperature Temperature Source Pulse Rate 114 H 114 H 117 H Pulse Rate [Left Radial] Respiratory Rate 29 H 21 30 H Blood Pressure 116/89 126/84 132/84 Blood Pressure [Right Arm] Blood Pressure Mean [Right Arm] Blood Pressure Source [Right Arm] Blood Pressure Position [Right Arm] 02 Sat by Pulse Oximetry 96 100 95 Oxygen Delivery Method Nasal Cannula Nasal Cannula Nasal Cannula Oxygen Flow Rate (LPM) 2 2 2 04/03/24 08:30 04/03/24 09:00 Temperature Temperature Source Pulse Rate 115 H 113 H Pulse Rate [Left Radial] Respiratory Rate 33 H 13 Blood Pressure 124/89 112/89 Blood Pressure [Right Arm] Blood Pressure Mean [Right Arm] Blood Pressure Source [Right Arm] Blood Pressure Position [Right Arm] 02 Sat by Pulse Oximetry 96 100 Oxygen Delivery Method Nasal Cannula Nasal Cannula Oxygen Flow Rate (LPM) 2 2 Lab Data Lab results reviewed: Yes I reviewed the patient's lab results. Lab Results 04/03/24 06:30: WBC 10.1, RBC 4.59 L, Hgb 13.6 L, Hct 40.5 L, MCV 88.2, MCH 29.6, MCHC 33.6, RDW 15.7, Plt Count 304, MPV 10.6 H, Neut % (Auto) 75.8, Lymph % (Auto) 12.6, [place] % (Auto) 7.9, Eos % (Auto) 2.5, Baso % (Auto) 0.5, Neut # (Auto) 7.7, Lymph # (Auto) 1.3, [place] # (Auto) 0.8, Eos # (Auto) 0.3, Baso # (Auto) 0.1, Sodium 127 L, Potassium 4.3, Chloride 89 L, Carbon Dioxide 33 H, Anion Gap 9.3, BUN 35 H, Creatinine 1.60 H, Estimated Creat Clear 51, Estimated GFR 45 L, Est GFR ( Amer) 55 L, Glucose 184 H, Calcium 9.0, Total Bilirubin 1.1, AST 86 H, ALT 247 H, Alkaline Phosphatase 286 H, Troponin I 0.73 H, NT-Pro-B Natriuret Pep 8660 H, Total Protein 6.2 L, Albumin 3.5, Globulin 2.7, Albumin/Globulin Ratio 1.3 04/03/24 06:41: SARS-CoV-2 (PCR) Not detected, Influenza A Untype (PCR) Not detected, Influenza Type B (PCR) Not detected 04/03/24 06:30 04/03/24 06:30 Orders (Tests/Meds): ED MEDICATIONS Generic Name Dose Route Start Last Admin Trade Name Freq PRN Reason Stop Dose Admin Milrinone Lactate 20 mg/ 100 mls @ 2.551 mls/hr 04/03/24 07:26 04/03/24 07:51 Sodium Chloride IV 05/03/24 07:25 0.125 mcg/kg/min .Q24H NOVA 2.55 mls/hr Administration Protocol 0.125 MCG/KG/MIN Levofloxacin/Dextrose 750 mg in 150 mls @ 100 mls/hr 04/03/24 08:40 04/03/24 09:35 Levofloxacin 750mg/150ml Premix IV 04/03/24 10:09 100 mls/hr ONCE ONE Administration Discontinued Medications Generic Name Dose Route Start Last Admin Trade Name Freq PRN Reason Stop Dose Admin Aspirin 324 mg 04/03/24 07:25 04/03/24 07:36 Aspirin 81mg Chewable Tablet PO 04/03/24 07:26 Not Given ONCE ONE Bumetanide 2 mg 04/03/24 07:26 04/03/24 07:38 Bumetanide 1mg/4ml Vial IV 04/03/24 07:27 2 mg ONCE ONE Administration Iopamidol 70 ml 04/03/24 07:01 04/03/24 07:02 Iopamidol-370 (76%);100ml Bottle IV 04/03/24 07:02 70 ml ONCE ONE Administration Morphine Sulfate 4 mg 04/03/24 08:19 04/03/24 08:21 Morphine 4mg/Ml Syringe IV 04/03/24 08:20 4 mg ONCE ONE Administration Sodium Chloride 10 ml 04/03/24 07:01 04/03/24 07:02 Sodium Chloride 0.9% 10ml Syr (Rad Only) IV 04/03/24 07:02 10 ml ONCE ONE Administration Sodium Chloride 50 ml 04/03/24 07:01 04/03/24 07:02 0.9 % Sodium Chloride 50 Ml Vial IV 04/03/24 07:02 50 ml ONCE ONE Administration ORDERS Category Date Time Status CT angio chest PE protocol Stat Cat Scan 04/03/24 06:35 Completed BNP [NT Pro Brain Natriuretic Pep.] Stat Lab 04/03/24 06:30 Completed CBC w/Auto Diff [Complete Blood Count Auto Diff] Stat Lab 04/03/24 06:30 Completed CMP [Comprehensive Metabolic Panel] Stat Lab 04/03/24 06:30 Completed Rapid PCR Covid and Flu A/B Stat Lab 04/03/24 06:41 Completed Troponin I Q3H Lab 04/03/24 06:30 Completed Troponin I Q3H Lab 04/03/24 09:45 Ordered ECG Data Tracing #1: I reviewed this ECG and interpreted as documented below: Sinus tachycardia, ventricular rate of 119, no concerning ST elevation, no evidence of arrhythmia ECG initial impression date: 04/03/24 ECG initial impression time: 06:33 Medical Decision Narrative: 53-year-old male with recent admission for acute heart failure LV thrombus RA thrombus, status post multiple stents, discharged on , presents with left-sided chest pain and new coughing starting upon waking at around 530.. History was obtained via interactive discussion with patient, chart review, EMS. On arrival, patient is [afebrile, hemodynamically stable, satting appropriately, alert, oriented x4, GCS 15], moving all extremities spontaneously. Full physical exam performed and significant for clear lungs bilaterally Differential includes but is not limited to stent thrombosis, PE, pericarditis, pericardial effusion, URI, pneumonia Patient was given full dose aspirin prior to arrival for symptomatic management and correction of underlying abnormalities. Workup initiated including CBC CMP troponin COVID flu swab emergent CTA chest. On re-evaluation, patient [remains afebrile, HD stable.] Laboratory workup independently interpreted by me and significant for []. Imaging independently interpreted by me and significant for []. See radiology read for full review of final results. EKG independently interpreted by me and significant for []. [] was considered, but deemed unnecessary due to []. Given patient history, exam and workup, patient's presentation most likely represents []. <Mark Celestin MD - Last Filed: 04/03/24 09:39> Vital Signs: 04/03/24 06:27 04/03/24 06:56 04/03/24 07:00 Temperature 98.6 F Temperature Source Oral Pulse Rate 115 H 115 H Pulse Rate [Left Radial] 118 H Respiratory Rate 16 20 Blood Pressure 122/95 H Blood Pressure [Right Arm] 112/79 Blood Pressure Mean [Right Arm] 90 Blood Pressure Source [Right Arm] Automatic Cuff Blood Pressure Position [Right Arm] Supine 02 Sat by Pulse Oximetry 97 97 Oxygen Delivery Method Room Air Room Air Oxygen Flow Rate (LPM) 04/03/24 07:30 04/03/24 08:00 04/03/24 08:12 Temperature Temperature Source Pulse Rate 114 H 114 H 117 H Pulse Rate [Left Radial] Respiratory Rate 29 H 21 30 H Blood Pressure 116/89 126/84 132/84 Blood Pressure [Right Arm] Blood Pressure Mean [Right Arm] Blood Pressure Source [Right Arm] Blood Pressure Position [Right Arm] 02 Sat by Pulse Oximetry 96 100 95 Oxygen Delivery Method Nasal Cannula Nasal Cannula Nasal Cannula Oxygen Flow Rate (LPM) 2 2 2 04/03/24 08:30 04/03/24 09:00 Temperature Temperature Source Pulse Rate 115 H 113 H Pulse Rate [Left Radial] Respiratory Rate 33 H 13 Blood Pressure 124/89 112/89 Blood Pressure [Right Arm] Blood Pressure Mean [Right Arm] Blood Pressure Source [Right Arm] Blood Pressure Position [Right Arm] 02 Sat by Pulse Oximetry 96 100 Oxygen Delivery Method Nasal Cannula Nasal Cannula Oxygen Flow Rate (LPM) 2 2 Lab Data Lab Results 04/03/24 06:30: WBC 10.1, RBC 4.59 L, Hgb 13.6 L, Hct 40.5 L, MCV 88.2, MCH 29.6, MCHC 33.6, RDW 15.7, Plt Count 304, MPV 10.6 H, Neut % (Auto) 75.8, Lymph % (Auto) 12.6, [place] % (Auto) 7.9, Eos % (Auto) 2.5, Baso % (Auto) 0.5, Neut # (Auto) 7.7, Lymph # (Auto) 1.3, [place] # (Auto) 0.8, Eos # (Auto) 0.3, Baso # (Auto) 0.1, Sodium 127 L, Potassium 4.3, Chloride 89 L, Carbon Dioxide 33 H, Anion Gap 9.3, BUN 35 H, Creatinine 1.60 H, Estimated Creat Clear 51, Estimated GFR 45 L, Est GFR ( Amer) 55 L, Glucose 184 H, Calcium 9.0, Total Bilirubin 1.1, AST 86 H, ALT 247 H, Alkaline Phosphatase 286 H, Troponin I 0.73 H, NT-Pro-B Natriuret Pep 8660 H, Total Protein 6.2 L, Albumin 3.5, Globulin 2.7, Albumin/Globulin Ratio 1.3 04/03/24 06:41: SARS-CoV-2 (PCR) Not detected, Influenza A Untype (PCR) Not detected, Influenza Type B (PCR) Not detected Orders (Tests/Meds): ED MEDICATIONS Generic Name Dose Route Start Last Admin Trade Name Freq PRN Reason Stop Dose Admin Milrinone Lactate 20 mg/ 100 mls @ 2.551 mls/hr 04/03/24 07:26 04/03/24 07:51 Sodium Chloride IV 05/03/24 07:25 0.125 mcg/kg/min .Q24H NOVA 2.55 mls/hr Administration Protocol 0.125 MCG/KG/MIN Levofloxacin/Dextrose 750 mg in 150 mls @ 100 mls/hr 04/03/24 08:40 04/03/24 09:35 Levofloxacin 750mg/150ml Premix IV 04/03/24 10:09 100 mls/hr ONCE ONE Administration Discontinued Medications Generic Name Dose Route Start Last Admin Trade Name Claudio PRN Reason Stop Dose Admin Aspirin 324 mg 04/03/24 07:25 04/03/24 07:36 Aspirin 81mg Chewable Tablet PO 04/03/24 07:26 Not Given ONCE ONE Bumetanide 2 mg 04/03/24 07:26 04/03/24 07:38 Bumetanide 1mg/4ml Vial IV 04/03/24 07:27 2 mg ONCE ONE Administration Iopamidol 70 ml 04/03/24 07:01 04/03/24 07:02 Iopamidol-370 (76%);100ml Bottle IV 04/03/24 07:02 70 ml ONCE ONE Administration Morphine Sulfate 4 mg 04/03/24 08:19 04/03/24 08:21 Morphine 4mg/Ml Syringe IV 04/03/24 08:20 4 mg ONCE ONE Administration Sodium Chloride 10 ml 04/03/24 07:01 04/03/24 07:02 Sodium Chloride 0.9% 10ml Syr (Rad Only) IV 04/03/24 07:02 10 ml ONCE ONE Administration Sodium Chloride 50 ml 04/03/24 07:01 04/03/24 07:02 0.9 % Sodium Chloride 50 Ml Vial IV 04/03/24 07:02 50 ml ONCE ONE Administration ORDERS Category Date Time Status CT angio chest PE protocol Stat Cat Scan 04/03/24 06:35 Completed BNP [NT Pro Brain Natriuretic Pep.] Stat Lab 04/03/24 06:30 Completed CBC w/Auto Diff [Complete Blood Count Auto Diff] Stat Lab 04/03/24 06:30 Completed CMP [Comprehensive Metabolic Panel] Stat Lab 04/03/24 06:30 Completed Rapid PCR Covid and Flu A/B Stat Lab 04/03/24 06:41 Completed Troponin I Q3H Lab 04/03/24 06:30 Completed Troponin I Q3H Lab 04/03/24 09:45 Ordered Medical Decision Narrative: 53-year-old male with recent admission for acute heart failure LV thrombus RA thrombus, status post multiple stents, discharged on , presents with left-sided chest pain and new coughing starting upon waking at around 530.. History was obtained via interactive discussion with patient, chart review, EMS. On arrival, patient is [afebrile, hemodynamically stable, satting appropriately, alert, oriented x4, GCS 15], moving all extremities spontaneously. Full physical exam performed and significant for clear lungs bilaterally Differential includes but is not limited to stent thrombosis, PE, pericarditis, pericardial effusion, URI, pneumonia Patient was given full dose aspirin prior to arrival for symptomatic management and correction of underlying abnormalities. Workup initiated including CBC CMP troponin COVID flu swab emergent CTA chest. Mark Celestin: Upon assumption of care patient was hemodynamically stable, tachycardic. Initial EKG independently interpreted by me, sinus tachycardia without ST elevation in anatomical contiguous leads, QTc 503. Initial hematologic labs have stable hyponatremia, creatinine 1.6 slightly improved from prior, troponin 0.73. CTA chest informally visualized by me, bilateral pleural effusions right greater than left, redemonstration of LV thrombus, left lingular opacity adjacent to the pleura, no saddle pulmonary embolism. Discharge summary attempted to be reviewed from the of this month and is not complete at this time, per review of progress notes patient was admitted with LV thrombus cardiogenic shock underwent significant diuresis and was subsequently discharged home. I discussed the case at length with Dr. Mcgill regarding management, he recommends admission for serial troponins, continue diuresis which will be initiated by me in the emergency department, discontinuation of carvedilol, initiation of milrinone. I reviewed cardiology's note from ? patient was transition from heparin to Eliquis, patient has been intermittently compliant and noncompliant with his medications overall since discharge, I discussed with him the importance of wearing LifeVest which she is not wearing currently. Given his left lingular opacity of undetermined significance levofloxacin will be reinitiated given that it is unlikely he completed his course. Differential includes more than just pneumonia based on appearance. Upon repeat evaluation he has good air movement in all lung parmar DuoNebs and steroids will be deferred as they are likely to help from a respiratory standpoint and will likely confound his cardiac condition. The case was discussed with Dr. Haney at length regarding management, patient signed out AMA recently and is very difficult to take care of. I reapproached the patient about his goals of care, prognosis, and how his prognosis may change depending on his level of compliance with our recommendations and patient is amenable to receiving full care at this time. Given this Dr. Haney will meet the patient to their service for continued evaluation at this time. Procedures <Murray Brown MD - Last Filed: 04/03/24 07:01> Risk/Benefits of Procedure(s) Were Explained: Yes Critical Care <Murray Brown MD - Last Filed: 04/03/24 07:01> Critical Care Time Critical Care Time: No
--- NOTE | 2024-04-03 06:35 | CT_ITS ---
PROCEDURE INFORMATION: Exam: CTA Chest With Contrast Exam date and time: 04/03/2024 6:50 AM Age: 53 years old Clinical indication: Cough and other: Chest pain; Additional info: Cough, chest pain TECHNIQUE: Imaging protocol: Computed tomographic angiography of the chest with contrast. Exam focused on the arteries. 3D rendering (Not supervised by radiologist): MIP and/or 3D reconstructed images were created by the technologist. Radiation optimization: All CT scans at this facility use at least one of these dose optimization techniques: automated exposure control; mA and/or kV adjustment per patient size (includes targeted exams where dose is matched to clinical indication); or iterative reconstruction. Contrast material: ISOVUE 370; Contrast volume: 70 ml; Contrast route: INTRAVENOUS (IV); COMPARISON: CT ANGIO CHEST PE PROTOCOL 03/25/2024 8:36 PM FINDINGS: Pulmonary arteries: No evidence of pulmonary embolus to the segmental level. Aorta: No aneurysm of the aorta. No dissection of the aorta. Lungs: 6 x 3 x 4 cm opacity in the lingula (series 1002, image 93; series 5, image [id number]). Differential includes pneumonia and malignancy.. Pleural spaces: Moderate bilateral pleural effusions Heart: Unremarkable. No cardiomegaly. No pericardial effusion. Coronary arteries: Coronary artery calcifications may indicate coronary artery disease. Lymph nodes: Unremarkable. No enlarged lymph nodes. Intraperitoneal space: Mild ascites in the abdomen Bones/joints: Unremarkable. No acute fracture. Soft tissues: Unremarkable. IMPRESSION: 1. No evidence of pulmonary embolus to the segmental level. 2. No aneurysm of the aorta. 3. No dissection of the aorta. 4. 6 x 3 x 4 cm opacity in the lingula (series 1002, image 93; series 5, image [id number]). Differential includes pneumonia and malignancy.. Recommend further evaluation
[2024-04-03 06:47] LABS: Coronavirus 19, PCR Not Detected (NotDetected); Influenza A, PCR Not Detected (NotDetected); Influenza B, PCR Not Detected (NotDetected)
[2024-04-03 06:51] LABS: Albumin Level 3.5 g/dl (3.5-5.0); Chloride 89 mmol/L (98-107); Potassium 4.3 mmoL/L (3.5-5.1); Sodium 127 mmol/L (136-145)
[2024-04-03 06:53] LABS: Blood Urea Nitrogen 35 mg/dl (9-20); Creatinine Clearance Estimated 51 mL/min (50-200); Estimated Glomerular Filt Rate 45 ml/min (>60); GFR (African American) 55 ML/MIN (>60)
[2024-04-03 06:54] LABS: Alanine Aminotransferase 247 U/L (12-78); Albumin/Globulin Ratio 1.3 (1.1-1.8); Alkaline Phosphatase 286 U/L (38-126); Anion Gap 9.3 mEq/L (5-15); Aspartate Amino Transferase 86 U/L (17-59); Bilirubin,Total 1.1 mg/dl (0.2-1.3); Carbon Dioxide 33 mmol/L (22.0-30.0); Globulin 2.7 g/dL (1.3-3.2); Glucose 184 mg/dl (74-100); Total Protein,Serum 6.2 g/dl (6.3-8.2)
[2024-04-03] MEDS: IOPAMIDOL-370 (76%);100ML BOTTLE 70 ML IV (07:02)
[2024-04-03] MEDS: SODIUM CHLORIDE 0.9% 10ML SYR (RAD ONLY) 10 ML IV (07:02)
[2024-04-03] MEDS: 0.9 % SODIUM CHLORIDE 50 ML VIAL IV (07:02)
[2024-04-03 07:09] LABS: Troponin I 0.73 ng/ml (0.00-0.034)
[2024-04-03 07:38] LABS: Hematocrit 40.5 % (42.0-52.0); Hemoglobin 13.6 g/dL (14.1-18.0); Mean Corpuscular HGB Conc 33.6 g/dL (31.8-35.4); Mean Corpuscular Hemoglobin 29.6 pg (27.0-31.2); Mean Corpuscular Volume 88.2 fl (80-94); Mean Platelet Volume 10.6 fl (7.4-10.4); Neutrophils % 75.8 % (37.0-80.0); Platelet Count 304 K/mm3 (142-424); Red Blood Count 4.59 M/mm3 (4.60-6.20); Red Cell Distribution Width 15.7 % (11.5-17.5); White Blood Count 10.1 K/mm3 (4.8-10.8)
[2024-04-03] MEDS: BUMETANIDE 1MG/4ML VIAL 2 MG IV (07:38)
[2024-04-03 07:39] LABS: Basophils # 0.1 K/mm3 (0-0.2); Basophils % 0.5 % (0.1-2.0); Eosinophils # 0.3 K/mm3 (0.0-0.4); Eosinophils % 2.5 % (0.1-12.0); Lymphocytes # 1.3 K/mm3 (0.7-4.5); Lymphocytes % 12.6 % (10-50); Monocytes # 0.8 K/mm3 (0.1-1.0); Monocytes % 7.9 % (1.7-9.3); Neutrophils # 7.7 K/mm3 (1.8-7.8)
[2024-04-03] MEDS: MILRINONE LACTATE 20 MG in 0.9 % SODIUM CHLORIDE 80 ML 2.55 MG IV (07:51)
[2024-04-03] MEDS: MORPHINE 4MG/ML SYRINGE 4 MG IV (08:21)
[2024-04-03 08:24] LABS: NT Pro Brain Natriuretic Pep. 8660 pg/mL (0-125)
--- NOTE | 2024-04-03 08:56 | PC.NURSE ---
I rounded on the pt and took him a warm blanket. no needs voiced. call mayo in reach.
--- NOTE | 2024-04-03 09:20 | [facility].PHAINT1 ---
Pharmacy Intervention Comments: MEDICATION RECONCILIATION COMPLETE USING LIST FROM RECENT HOSPITAL DISCHARGE NOTE.
[2024-04-03] MEDS: LEVOFLOXACIN/D5W 750 MG/150 ML 750 MG/150 ML PIGGYBACK 100 MG IV (09:35)
--- NOTE | 2024-04-03 09:39 | PC.NURSE ---
I notified HS that we will need a step down bed for admission for heart failure to Dr. Roman.
--- NOTE | 2024-04-03 09:56 | P.HP_ITS ---
History of Present Illness *Admission Date: 04/03/24 *Reason for visit:: chest pain, dyspnea *History of present illness: Mr. Gonsales is a 53-year-old who was recently admitted to [facility] for acute decompensated heart failure and cardiogenic shock. He was discharged on 03/29, patient left AMA before LifeVest could be placed. Question of he has been taking his medications appropriately at discharge. Due to cost, has not taken all of his medications. Woke up today with onset of chest pain and came to the ER for further evaluation. At last visit he was diagnosed with acute heart failure, CAD, LV thrombus, received multiple stents on left heart cath. Diuresed aggressively, -18 L last admission. Reports he had significant coughing and some chest pain this morning that woke him up at about 5:30 in the morning. EMS on arrival obtained EKG that showed no ST elevations. Vital signs were normal except for tachycardia. Patient loaded with aspirin and brought to the ER for evaluation. On presentation, found to have elevated BNP and oxygen requirement of 2 L to maintain sats above 90%. Due to chest discomfort, persistent volume overload status, medicine was consulted for admission and further management On arrival to the floor, patient is responding well to Bumex drip. -1 L so far. Chest pain improving. Believes he has been taking the right anticoagulants with his aspirin and Plavix and Eliquis but not sure. Patient appears to have limited health literacy. In no acute distress. Remains in sinus tachycardia on telemetry. [facility] Disclaimer: The information contained in this section may have been updated after the patient was seen, as this information can be updated by other users. Medical History Severe left ventricular systolic dysfunction (LVSD) Transaminitis RENAY (acute kidney injury) Anasarca LV (left ventricular) mural thrombus Acute hypoxemic respiratory failure Cardiogenic shock Non-STEMI (non-ST elevated myocardial infarction) Acute HFrEF (heart failure with reduced ejection fraction) Pneumonia Pleural effusion, bilateral Vitamin B12 deficiency Allergic rhinitis BPH (benign prostatic hyperplasia) Hyperlipidemia Insomnia Partial tear of right Achilles tendon Family History Other No significant family history Social History Smoking Status: Never smoker alcohol intake: never substance use type: former substance user and heroin current occupational status: unemployed Travel in the last 8 weeks: None Contact w/someone who lives/traveled outside [place] past 30 days?: No Exposure to someone with infectious disease in past 14 days?: No Do you have a fever (greater than 100.4 F or 38 C)?: No Have you tested positive for COVID-19: No Exposed to someone with COVID-19 in past 14 days?: No Do you have a sore throat?: No Do you have a cough?: Yes Do you have any weakness?: No Are you experiencing any nausea/vomitting?: No Do you have any diarrhea?: No Are you experiencing any unusual bleeding?: No Do you have any muscle aches/pain?: No Do you have any abdominal pain?: No Are you experiencing loss of taste or smell?: No Other Medical History Have you received the Flu Vaccine for this season: No Have you received the Pneumonia Vaccine: No Review of Systems Review of Systems Review of systems (narrative): 14 point review of systems performed, pertinent positives and negatives as per HPI Meds Home Medications and Allergies Home Medications ?Medication ?Instructions ?Recorded ?Confirmed ?Type apixaban 5 mg tablet (Eliquis) 5 mg PO BID 30 days #60 tabs 03/29/24 04/03/24 Rx aspirin 81 mg tablet,delayed 81 mg PO DAILY 30 days #30 tabs 03/29/24 04/03/24 Rx release atorvastatin 40 mg tablet 80 mg (2 x 40 mg) PO HS 30 days 03/29/24 04/03/24 Rx #60 tabs carvedilol 3.125 mg tablet 3.125 mg PO BID 30 days #60 tabs 03/29/24 04/03/24 Rx clopidogrel 75 mg tablet 75 mg PO DAILY 30 days #30 tabs 03/29/24 04/03/24 Rx New Prescriptions to Start Prescriptions: Allergies Allergy/AdvReac Type Severity Reaction Status Date / Time diclofenac (DICLOFENAC) Allergy Unknown Verified 08/12/21 13:08 Penicillins (PENICILLINS) Allergy Unknown Verified 08/12/21 13:08 propoxyphene (PROPOXYPHENE) Allergy Unknown Verified 08/12/21 13:08 tramadol (TRAMADOL) Allergy Unknown Verified 08/12/21 13:08 Exam Data for Last 24 hours Vital signs and Labs for Last 24 Hours: Temp Pulse Resp BP Pulse Ox O2 Del Method O2 Flow Rate 98.6 F 113 H 13 112/89 100 Nasal Cannula 2 04/03/24 06:27 04/03/24 09:00 04/03/24 09:00 04/03/24 09:00 04/03/24 09:00 04/03/24 09:00 04/03/24 09:00 Laboratory Results - last 24 hr 04/03/24 06:30: WBC 10.1, RBC 4.59 L, Hgb 13.6 L, Hct 40.5 L, MCV 88.2, MCH 29.6, MCHC 33.6, RDW 15.7, Plt Count 304, MPV 10.6 H, Neut % (Auto) 75.8, Lymph % (Auto) 12.6, [place] % (Auto) 7.9, Eos % (Auto) 2.5, Baso % (Auto) 0.5, Neut # (Auto) 7.7, Lymph # (Auto) 1.3, [place] # (Auto) 0.8, Eos # (Auto) 0.3, Baso # (Auto) 0.1, Sodium 127 L, Potassium 4.3, Chloride 89 L, Carbon Dioxide 33 H, Anion Gap 9.3, BUN 35 H, Creatinine 1.60 H, Estimated Creat Clear 51, Estimated GFR 45 L, Est GFR ( Amer) 55 L, Glucose 184 H, Calcium 9.0, Total Bilirubin 1.1, AST 86 H, ALT 247 H, Alkaline Phosphatase 286 H, Troponin I 0.73 H, NT-Pro-B Natriuret Pep 8660 H, Total Protein 6.2 L, Albumin 3.5, Globulin 2.7, Albumin/Globulin Ratio 1.3 04/03/24 06:41: SARS-CoV-2 (PCR) Not detected, Influenza A Untype (PCR) Not detected, Influenza Type B (PCR) Not detected I & O for Last 24 hours: Intake & Output 03/31/24 04/01/24 04/02/24 04/03/24 23:59 23:59 23:59 23:59 Weight 68.039 kg Constitutional Constitutional: mild distress, obese, chronically ill appearing and disheveled *Routine HEENT Exam Head: Present normocephalic Eye: Present EOMI ENT: Present mucous membranes moist *Routine Neck Exam Neck: Present supple and JVD *Routine Respiratory Exam Respiratory: Present decreased breath sounds, crackles (bases) and distant breath sounds *Routine Cardiovascular Exam Cardiovascular: Present RRR, Normal S1 and Normal S2 *Routine Abdominal Exam Abdominal: Present soft and normoactive bowel sounds; Absent tenderness, distended or firm *Routine Rectal Exam Rectal:: deferred *Routine Genitalia Exam Genitalia:: deferred *Routine Extremities Exam Extremities: Present edema (3+ to knees); Absent cyanosis *Routine Skin Exam Skin: Present intact and normal turgor *Routine Neurological Exam Neurological: Present alert, oriented X3 and moving all extremities; Absent altered mental status Assessment and Plan *Assessment and plan (1) Acute decompensated heart failure: Status: Acute Category: Medical Code(s): I50.9 - Heart failure, unspecified (2) LV (left ventricular) mural thrombus: Status: Acute Category: Medical Code(s): I51.3 - Intracardiac thrombosis, not elsewhere classified (3) Transaminitis: Status: Acute Category: Medical Code(s): R74.01 - Elevation of levels of liver transaminase levels (4) RENAY (acute kidney injury): Status: Acute Category: Medical Code(s): N17.9 - Acute kidney failure, unspecified (5) Anasarca: Status: Acute Category: Medical Code(s): R60.1 - Generalized edema (6) Acute hypoxemic respiratory failure: Status: Acute Category: Medical Code(s): J96.01 - Acute respiratory failure with hypoxia (7) CKD stage 3a, GFR 45-59 ml/min: Status: Acute Category: Medical Code(s): N18.31 - Chronic kidney disease, stage 3a Plan 53-year-old who was recently admitted for acute CHF, found to have CAD status post stenting. Was in severe heart failure with anasarca and significant volume overload. Diuresed well, unfortunately left AMA. Represented today due to onset of chest pain. Slight detection of his troponin at 0.73, trending down serial levels. BNP elevated to 8000. Discussed case with ER physician, request admission for continued treatment and management of his heart failure. Cardiology consulted. I agreed to admit for further care. Will aggressively diurese and monitor for improvement with optimization of volume status. Problems addressed as follows: Acute Heart failure with reduced ejection fraction Hypertension LV thrombus NSTEMI CAD - Discussed case with cardiology, was recently admitted and left AMA. Status post heart cath with multiple stents placed. Continue aggressive diuresis. Initiate milrinone drip for inotropic support. Initiate Bumex drip for aggressive diuresis -Will aggressively diurese over the next few days given patient's persistent pleural effusions on chest CT. -Goal sats greater than 90%, wean oxygen as tolerated. Currently on 2 L oxygen. -Strict ins and outs - Patient does have an LV thrombus on CT and echo from last visit. Continue Eliquis 5 mg twice daily -Initiate Entresto 24/26 mg twice daily. Hold on beta-lexii. - Echo obtained last visit and reviewed, EF less than 15-20%. Would benefit from LifeVest prior to discharge, left before LifeVest could be placed last visi t. -Continue aspirin 81 mg daily, Plavix 75 mg daily, Lipitor 80 mg nightly CKD versus RENAY: Creatinine 1.6, this appears to be somewhat better than last visit. Suspect he has some chronic kidney disease and is improving with continued diuresis. Monitor daily with repeat CBC, CMP, magnesium ordered for the morning Transaminitis likely secondary to hepatic congestion. Liver function improving. Significantly improved from last visit. Bilirubin normal at 1.1, AST and ALT 86 and 247 respectively. No abdominal pain today. BPH: Tamsulosin 0.4mg HS PPx Eliquis 5mg BID FEN cardiac fluid restriction 1.5 L/day
--- NOTE | 2024-04-03 10:00 | PC.NURSE ---
called yuliya to [facility] and answered all questions
[2024-04-03 10:28] LABS: Troponin I 0.66 ng/ml (0.00-0.034)
[2024-04-03] MEDS: BUMETANIDE 10 MG in 0.9 % SODIUM CHLORIDE 60 ML 5 MG IV (11:31)
--- NOTE | 2024-04-03 11:38 | PC.NURSE ---
DURING PT'S ADMISSION QUESTIONS THE PATIENT ALMOST REFUSED TO ANSWER ANY ADMISSION QUESTIONS AND WOULD BARELY LOOK AT THIS RN. ALEXIA FROM [employer] ALSO WENT IN THE ROOM TO DISCUSS HIS INSURANCE STATUS AND HE WOULD NOT ACKNOWLEDGE HER EITHER. MADE AWARE. MILTON MADE AWARE THAT HE WAS DECONTAMINATED IN THE ER FOR BEDBUGS.
[2024-04-03] MEDS: CLOPIDOGREL 75MG TAB 75 MG PO (18:11)
--- NOTE | 2024-04-03 18:18 | PC.NURSE ---
PT HAS DONE FAIR SINCE ARRIVING TO THE FLOOR. HE HAS NOT BEEN VERY TALKATIVE ALMOST REFUSING TO ANSWER MY ADMISSION QUESTIONS. HE DID TALK TO DR. GRACIA DURING HIS ASSESSMENT. HE WAS STARTED ON THE BUMEX GTT AND IS HAVING GOOD URINE OUTPUT AND IT IS CLEAR AND YELLOW. HIS VITALS ARE STABLE. HE HAS PITTING EDEMA TO HIS BILATERAL LOWER EXTREMITIES.
[2024-04-03] MEDS: ATORVASTATIN 40MG TABLET 80 MG PO (20:23)
[2024-04-03] MEDS: TAMSULOSIN 0.4MG CAPSULE 0.4 MG PO (20:23)
[2024-04-03] MEDS: APIXABAN 5MG TABLET 5 MG PO (20:24)
[2024-04-03] MEDS: SACUBITRIL/VALSARTAN 24-26MG TABLET 1 EACH PO (20:24)
[2024-04-04] VITALS (14 sets, daily range): BP systolic 83–122; BP diastolic 48–69; PULSE 100–120; RESP 12–20; TEMP 36.4–36.7; O2SAT 94–100; BMI 25.6
[2024-04-04] MEDS: BUMETANIDE 10 MG in 0.9 % SODIUM CHLORIDE 60 ML 5 MG IV (05:43)
--- NOTE | 2024-04-04 06:25 | PC.NURSE ---
Patient slept intermittently throughout shift. No c/o pain or discomfort voiced.
[2024-04-04 07:17] LABS: Chloride 89 mmol/L (98-107)
[2024-04-04 07:18] LABS: Sodium 127 mmol/L (136-145)
[2024-04-04 07:20] LABS: Alanine Aminotransferase 193 U/L (12-78); Albumin/Globulin Ratio 1.2 (1.1-1.8); Alkaline Phosphatase 207 U/L (38-126); Aspartate Amino Transferase 63 U/L (17-59); Bilirubin,Total 1.4 mg/dl (0.2-1.3); Blood Urea Nitrogen 32 mg/dl (9-20); Creatinine Clearance Estimated 56 mL/min (50-200); Estimated Glomerular Filt Rate 45 ml/min (>60); GFR (African American) 55 ML/MIN (>60); Globulin 2.6 g/dL (1.3-3.2); Total Protein,Serum 5.6 g/dl (6.3-8.2)
[2024-04-04 07:21] LABS: Calcium 8.2 mg/dl (8.4-10.2); Glucose 154 mg/dl (74-100); Magnesium 1.3 mg/dl (1.6-2.3)
[2024-04-04 07:28] LABS: Potassium 2.8 mmoL/L (3.5-5.1)
[2024-04-04 07:29] LABS: Carbon Dioxide 35 mmol/L (22.0-30.0)
[2024-04-04 07:30] LABS: Anion Gap 5.8 mEq/L (5-15)
[2024-04-04 08:01] LABS: Hematocrit 40.4 % (42.0-52.0); Hemoglobin 13.9 g/dL (14.1-18.0); Mean Corpuscular Volume 84.7 fl (80-94); Red Blood Count 4.77 M/mm3 (4.60-6.20); White Blood Count 7.8 K/mm3 (4.8-10.8)
[2024-04-04 08:02] LABS: Basophils # 0.1 K/mm3 (0-0.2); Basophils % 0.8 % (0.1-2.0); Eosinophils # 0.3 K/mm3 (0.0-0.4); Eosinophils % 3.2 % (0.1-12.0); Lymphocytes % 12.6 % (10-50); Mean Corpuscular HGB Conc 34.4 g/dL (31.8-35.4); Mean Corpuscular Hemoglobin 29.1 pg (27.0-31.2); Mean Platelet Volume 10.5 fl (7.4-10.4); Monocytes # 0.8 K/mm3 (0.1-1.0); Monocytes % 9.9 % (1.7-9.3); Neutrophils # 5.7 K/mm3 (1.8-7.8); Platelet Count 309 K/mm3 (142-424); Red Cell Distribution Width 15.1 % (11.5-17.5)
[2024-04-04] MEDS: MAGNESIUM SULFATE IN WATER 2 GM/50 ML PIGGYBACK IV ×3 (09:30→15:39)
[2024-04-04] MEDS: POTASSIUM CHLORIDE 20MEQ TAB 40 MEQ PO ×3 (09:31→15:39)
[2024-04-04] MEDS: SACUBITRIL/VALSARTAN 24-26MG TABLET 1 EACH PO ×2 (09:31→20:25)
[2024-04-04] MEDS: BUMETANIDE 1MG/4ML VIAL 2 MG IV ×2 (09:31→15:39)
[2024-04-04] MEDS: CLOPIDOGREL 75MG TAB 75 MG PO (09:31)
[2024-04-04] MEDS: APIXABAN 5MG TABLET 5 MG PO ×2 (09:31→20:26)
[2024-04-04] MEDS: ASPIRIN EC 81MG TABLET 81 MG PO (09:31)
--- NOTE | 2024-04-04 10:05 | P.PN_ITS ---
Subjective *Date: 04/04/24 *Time: 14:15 Interval history: Alert and oriented x 4. On room air. Complaining of abdominal pain. No gas overnight. Denies nausea or vomiting. Asking for something to drink. Medical Exam Vital signs and Labs for Last 24 Hours: Vital Signs Temp Pulse Pulse Resp BP Pulse Ox O2 Del Method 04/04/24 08:00 97.5 F L 04/04/24 08:00 106 H 16 97/58 L 98 Room Air 04/04/24 06:23 Nasal Cannula 04/04/24 05:25 102 H 12 89/53 L 95 Nasal Cannula 04/04/24 05:00 Nasal Cannula 04/04/24 04:00 110 H 04/04/24 04:00 96 Nasal Cannula 04/04/24 04:00 112 H 04/04/24 04:00 97.8 F 04/04/24 03:00 Nasal Cannula 04/04/24 02:00 109 H 15 100/69 L 95 Nasal Cannula 04/04/24 00:53 Nasal Cannula 04/04/24 00:00 98.0 F 04/04/24 00:00 109 H 18 122/63 96 Nasal Cannula 04/04/24 00:00 111 H 04/04/24 00:00 100 H 04/03/24 22:57 Nasal Cannula 04/03/24 22:00 98 F 114 H 21 111/62 96 Nasal Cannula 04/03/24 21:00 Nasal Cannula 04/03/24 20:00 120 H 04/03/24 20:00 Nasal Cannula 04/03/24 20:00 116 H 04/03/24 19:37 98.0 F 04/03/24 18:54 Nasal Cannula 04/03/24 18:00 118 H 18 131/95 H 93 L Room Air 04/03/24 17:00 Nasal Cannula 04/03/24 16:00 Room Air 04/03/24 16:00 120 H 04/03/24 16:00 97.6 F 108 H 16 135/84 100 Nasal Cannula 04/03/24 15:00 Nasal Cannula 04/03/24 14:00 104 H 16 129/88 100 Nasal Cannula 04/03/24 13:00 Nasal Cannula 04/03/24 12:00 110 H 04/03/24 12:00 109 H 16 125/91 H 96 Nasal Cannula 04/03/24 11:00 Nasal Cannula 04/03/24 10:40 Nasal Cannula 04/03/24 10:31 98.1 F 108 H 16 109/73 L 100 Nasal Cannula O2 Flow Rate 04/04/24 08:00 04/04/24 08:00 04/04/24 06:23 2 04/04/24 05:25 2 04/04/24 05:00 2 04/04/24 04:00 04/04/24 04:00 2 04/04/24 04:00 04/04/24 04:00 04/04/24 03:00 2 04/04/24 02:00 2 04/04/24 00:53 2 04/04/24 00:00 04/04/24 00:00 2 04/04/24 00:00 04/04/24 00:00 04/03/24 22:57 2 04/03/24 22:00 2 04/03/24 21:00 2 04/03/24 20:00 04/03/24 20:00 2 04/03/24 20:00 04/03/24 19:37 04/03/24 18:54 2 04/03/24 18:00 04/03/24 17:00 22 04/03/24 16:00 04/03/24 16:00 04/03/24 16:00 2 04/03/24 15:00 2 04/03/24 14:00 2 04/03/24 13:00 2 04/03/24 12:00 04/03/24 12:00 2 04/03/24 11:00 2 04/03/24 10:40 2 04/03/24 10:31 2 Intake and Output 04/03/24 04/04/24 04/04/24 23:59 07:59 15:59 Intake Total 360 / 720 91 / 526 435 / 526 Output Total 3825 / 6625 4450 / 5400 950 / 5400 Balance -3465 / -5905 -4359 / -4874 -515 / -4874 Intake: Intake, Oral Amount 360 / 720 435 / 435 Intake, Total IV Amount 91 / 91 Output: Output, Urine Amount 3825 / 6625 4450 / 5400 950 / 5400 Other: Number of Unmeasured Voids 0 0 Weight 74.072 kg Patient Weight 04/04/24 23:59 Weight 74.072 kg Laboratory Results - last 24 hr 04/03/24 09:45: Troponin I 0.66 H 04/04/24 06:55: WBC 7.8, RBC 4.77, Hgb 13.9 L, Hct 40.4 L, MCV 84.7, MCH 29.1, MCHC 34.4, RDW 15.1, Plt Count 309, MPV 10.5 H, Neut % (Auto) 73.0, Lymph % (Auto) 12.6, [place] % (Auto) 9.9 H, Eos % (Auto) 3.2, Baso % (Auto) 0.8, Neut # (Auto) 5.7, Lymph # (Auto) 1.0, [place] # (Auto) 0.8, Eos # (Auto) 0.3, Baso # (Auto) 0.1, Sodium 127 L, Potassium 2.8 L* D, Chloride 89 L, Carbon Dioxide 35 H , Anion Gap 5.8, BUN 32 H, Creatinine 1.60 H, Estimated Creat Clear 56, Estimated GFR 45 L, Est GFR ( Amer) 55 L, Glucose 154 H, Calcium 8.2 L, Magnesium 1.3 L, Total Bilirubin 1.4 H, AST 63 H D, ALT 193 H, Alkaline Ph osphatase 207 H, Total Protein 5.6 L, Albumin 3.0 L D, Globulin 2.6, Albumin/Globulin Ratio 1.2 I & O for Labs for Last 24 Hours: Intake & Output 04/01/24 04/02/24 04/03/24 04/04/24 23:59 23:59 23:59 23:59 Intake Total 720 / 720 526 / 526 Output Total 5725 / 6625 5400 / 5400 Balance -5005 / -5905 -4874 / -4874 Weight 68.039 kg 74.072 kg Constitutional: Present no acute distress, average body habitus, chronically ill appearing and cooperative Head: Present atraumatic and normocephalic ENT: Present normal exam Respiratory: Present crackles (bases, improving) and normal respiratory effort; Absent rhonchi or wheezes Cardiac: Present Regular Rhythm and Tachycardia GI: Present soft and normal bowel sounds; Absent distention or tenderness Extremities: Present normal inspection, full ROM and edema (1+ BLE to knees) Skin: Present intact and erythema (stasis changes in feet) Neuro: Present Grossly Intact, alert, awake, oriented x 3 and moves all extremities Assessment and Plan *Assessment and plan (1) Acute decompensated heart failure: Status: Acute Category: Medical Code(s): I50.9 - Heart failure, unspecified (2) LV (left ventricular) mural thrombus: Status: Acute Category: Medical Code(s): I51.3 - Intracardiac thrombosis, not elsewhere classified (3) Transaminitis: Status: Acute Category: Medical Code(s): R74.01 - Elevation of levels of liver transaminase levels (4) RENAY (acute kidney injury): Status: Acute Category: Medical Code(s): N17.9 - Acute kidney failure, unspecified (5) Anasarca: Status: Acute Category: Medical Code(s): R60.1 - Generalized edema (6) Acute hypoxemic respiratory failure: Status: Acute Category: Medical Code(s): J96.01 - Acute respiratory failure with hypoxia (7) CKD stage 3a, GFR 45-59 ml/min: Status: Acute Category: Medical Code(s): N18.31 - Chronic kidney disease, stage 3a Plan 53-year-old who was recently admitted for acute CHF, found to have CAD status post stenting. Was in severe heart failure with anasarca and significant volume overload. Diuresed well, unfortunately left AMA. Represented today due to onset of chest pain. Slight detection of his troponin at 0.73, trending down serial levels. BNP elevated to 8000. Discussed case with ER physician, request admission for continued treatment and management of his heart failure. Cardiology consulted. I agreed to admit for further care. Continue to aggressively diurese and monitor for improvement with optimization of volume sta tus. Problems addressed as follows: Acute Heart failure with reduced ejection fraction Hypertension LV thrombus NSTEMI CAD - Discussed case with cardiology, was recently admitted and left AMA. Status post heart cath with multiple stents placed. Continue aggressive diuresis. -Continue milrinone drip for 24 more hours. Stop Bumex drip and transition to 2 mg IV twice daily; -10 L since admission - Goal sats greater than 90%, wean oxygen as tolerated. Weaned to room air - strict ins and outs - Patient does have an LV thrombus on CT and echo from last visit. Continue Eliquis 5 mg twice daily -Tolerating Entresto 24/26 mg twice daily. Hold on beta-lexii. - Echo obtained last visit and reviewed, EF less than 15-20%. Would benefit from LifeVest prior to discharge, left before LifeVest could be placed last visit. - Continue aspirin 81 mg daily, Plavix 75 mg daily, Lipitor 80 mg nightly CKD versus RENAY: Creatinine 1.6, BUN 32 this morning. Suspect he has some chronic kidney disease and is improving with continued diuresis. Monitor daily with repeat CBC, CMP, magnesium ordered for the morning Transaminitis likely secondary to hepatic congestion. Liver function improving, Bilirubin 1.4, AST 63, ALT 193, alk phos 207. No abdominal pain today. BPH: Tamsulosin 0.4mg HS PPx Eliquis 5mg BID FEN cardiac fluid restriction 1.5 L/day
[2024-04-04] MEDS: MILRINONE LACTATE 20 MG in 0.9 % SODIUM CHLORIDE 80 ML 2.55 MG IV (12:14)
[2024-04-04 16:08] LABS: Chloride 88 mmol/L (98-107); Potassium 3.5 mmoL/L (3.5-5.1); Sodium 127 mmol/L (136-145)
[2024-04-04 16:11] LABS: Anion Gap 2.5 mEq/L (5-15); Blood Urea Nitrogen 28 mg/dl (9-20); Calcium 8.2 mg/dl (8.4-10.2); Carbon Dioxide 40 mmol/L (22.0-30.0); Creatinine Clearance Estimated 53 mL/min (50-200); Estimated Glomerular Filt Rate 42 ml/min (>60); GFR (African American) 51 ML/MIN (>60); Glucose 130 mg/dl (74-100)
[2024-04-04 16:12] LABS: Magnesium 2.3 mg/dl (1.6-2.3)
--- NOTE | 2024-04-04 16:41 | PC.NURSE ---
Milrinone drip stopped per md. VS stable and patient remained on room air. Lung sounds clear. Pitting edema 2+ noted bilateral legs. Patient able to sit up in chair for lunch.
[2024-04-04] MEDS: ATORVASTATIN 40MG TABLET 80 MG PO (20:25)
[2024-04-04] MEDS: TAMSULOSIN 0.4MG CAPSULE 0.4 MG PO (20:26)
--- NOTE | 2024-04-04 21:45 | PC.NURSE ---
Report recieved from EZEQUIEL Vila at this time.
[2024-04-05] VITALS: BP 111/60; PULSE 112; PULSE 115; RESP 20; TEMP 36.7; O2SAT 100
[2024-04-05] MEDS: BENZONATATE 100MG CAPSULE 100 MG PO (02:29)
[2024-04-05 04:00] VITALS: BP 89/52; PULSE 110; PULSE 117; RESP 16; TEMP 36.9; O2SAT 96; BMI 24.7
[2024-04-05 08:00] VITALS: BP 90/50; PULSE 107; PULSE 110; RESP 16; TEMP 36.7; O2SAT 94
[2024-04-05] MEDS: CLOPIDOGREL 75MG TAB 75 MG PO (09:40)
[2024-04-05] MEDS: ASPIRIN EC 81MG TABLET 81 MG PO (09:40)
[2024-04-05] MEDS: APIXABAN 5MG TABLET 5 MG PO (09:40)
[2024-04-05] MEDS: SACUBITRIL/VALSARTAN 24-26MG TABLET 1 EACH PO (09:40)
[2024-04-05] MEDS: BUMETANIDE 1MG/4ML VIAL 2 MG IV (09:41)
--- NOTE | 2024-04-05 09:42 | PC.NURSE ---
LYNDA WITH CARDS NOTIFIED OF A SOFT BP OF 90/50. STATED THAT HE WAS FINE WITH STILL GIVING THE BUMEX
[2024-04-05 10:59] LABS: Hematocrit 40.3 % (42.0-52.0); Hemoglobin 13.9 g/dL (14.1-18.0); Mean Corpuscular HGB Conc 34.5 g/dL (31.8-35.4); Mean Corpuscular Hemoglobin 29.5 pg (27.0-31.2); Mean Corpuscular Volume 85.6 fl (80-94); Mean Platelet Volume 10.4 fl (7.4-10.4); Neutrophils % 61.8 % (37.0-80.0); Platelet Count 320 K/mm3 (142-424); Red Blood Count 4.71 M/mm3 (4.60-6.20); Red Cell Distribution Width 15.5 % (11.5-17.5); White Blood Count 8.1 K/mm3 (4.8-10.8)
[2024-04-05 11:00] LABS: Basophils # 0.1 K/mm3 (0-0.2); Basophils % 0.6 % (0.1-2.0); Eosinophils # 0.3 K/mm3 (0.0-0.4); Lymphocytes # 1.5 K/mm3 (0.7-4.5); Lymphocytes % 18.7 % (10-50); Monocytes # 1.2 K/mm3 (0.1-1.0); Monocytes % 14.3 % (1.7-9.3)
[2024-04-05 11:22] LABS: Alanine Aminotransferase 165 U/L (12-78); Albumin Level 3.1 g/dl (3.5-5.0); Albumin/Globulin Ratio 1.2 (1.1-1.8); Alkaline Phosphatase 210 U/L (38-126); Anion Gap 6.1 mEq/L (5-15); Aspartate Amino Transferase 56 U/L (17-59); Bilirubin,Total 1.2 mg/dl (0.2-1.3); Blood Urea Nitrogen 27 mg/dl (9-20); Calcium 8.2 mg/dl (8.4-10.2); Carbon Dioxide 39 mmol/L (22.0-30.0); Chloride 87 mmol/L (98-107); Creatinine Clearance Estimated 54 mL/min (50-200); Estimated Glomerular Filt Rate 45 ml/min (>60); GFR (African American) 55 ML/MIN (>60); Globulin 2.6 g/dL (1.3-3.2); Glucose 97 mg/dl (74-100); Magnesium 2.1 mg/dl (1.6-2.3); Phosphorous 3.1 mg/dl (2.5-4.5); Potassium 4.1 mmoL/L (3.5-5.1); Sodium 128 mmol/L (136-145); Total Protein,Serum 5.7 g/dl (6.3-8.2)
--- NOTE | 2024-04-05 11:51 | P.DS_ITS ---
General Admission date:: 04/03/24 Discharge date: 04/05/24 HPI HPI HPI: Mr. Gonsales is a 53-year-old who was recently admitted to [facility] for acute decompensated heart failure and cardiogenic shock. He was discharged on 03/29, patient left AMA before LifeVest could be placed. Question of he has been taking his medications appropriately at discharge. Due to cost, has not taken all of his medications. Woke up today with onset of chest pain and came to the ER for further evaluation. At last visit he was diagnosed with acute heart failure, CAD, LV thrombus, received multiple stents on left heart cath. Diuresed aggressively, -18 L last admission. Reports he had significant coughing and some chest pain this morning that woke him up at about 5:30 in the morning. EMS on arrival obtained EKG that showed no ST elevations. Vital signs were normal except for tachycardia. Patient loaded with aspirin and brought to the ER for evaluation. On presentation, found to have elevated BNP and oxygen requirement of 2 L to maintain sats above 90%. Due to chest discomfort, persistent volume overload status, medicine was consulted for admission and further management On arrival to the floor, patient is responding well to Bumex drip. -1 L so far. Chest pain improving. Believes he has been taking the right anticoagulants with his aspirin and Plavix and Eliquis but not sure. Patient appears to have limited health literacy. In no acute distress. Remains in sinus tachycardia on telemetry. Hospital Course Hospital Course Hospital Course: 53-year-old who was recently admitted for acute CHF, found to have CAD status post stenting. Was in severe heart failure with anasarca and significant volume overload. Diuresed well, unfortunately left AMA. Represented today due to onset of chest pain. Slight detection of his troponin at 0.73, trending down serial levels. BNP elevated to 8000. Discussed case with ER physician, request admission for continued treatment and management of his heart failure. Cardiology was consulted and assisted with care during admission. Patient aggressively diuresed. Showed good response. Transition to oral regimen for heart failure. Critical medications provided prior to discharge by clinic pharmacy and ALICE App along with manufacture coupon for free month of Entresto. Continue diuresis orally as an outpatient. Close follow-up with cardiology for further management and adjustment to regimen. Stable on room air. Problems addressed as follows: Acute Heart failure with reduced ejection fraction Hypertension LV thrombus NSTEMI CAD - Discussed case with cardiology, was recently admitted and left AMA. Status post heart cath with multiple stents placed. Initiated on aggressive diuresis with Bumex drip and milrinone drip to improve cardiac output. Patient showed good response, was weaned to twice daily IV Bumex and gradually weaned to oral Bumex at discharge. Negative over 11 L this admission. -18 L last admission earlier this month. Patient's edema nearly resolved in his legs. Weaned to room air within first 24 hours of admission. Ambulating independently, hemodynamically stable. Patient was started on Entresto 24/26 mg twice daily. Will hold beta-lexii at this time in the setting of his severely reduced ejection fraction. Reviewed echo from last visit, shows EF of 15 to 20%. Would benefit from LifeVest, however LifeVest was explored last visit, patient's Medicaid does not start until April 11, he does not have ability to pay deposit at this time. Will revisit LifeVest initiation at follow-up with cardiology as an outpatient. Continue aspirin 81 mg daily, Plavix 75 mg daily. On Lipitor 80 mg nightly. Continue Eliquis 5 mg twice daily for LV thrombus. Medically stable for discharge and continued medical management as an outpatient. CKD versus RENAY: Creatinine 1.6, BUN 32 this morning. Suspect he has some chronic kidney disease and is improving with continued diuresis. Monitor daily with repeat CBC, CMP, magnesium ordered for the morning Transaminitis likely secondary to hepatic congestion. Liver function improved during admission, near normal by day of discharge. No abdominal pain. BPH: Tamsulosin 0.4mg HS Total time spent on discharge 32 minutes in counseling, documentation, chart review, and direct care with patient. Exam Data for Last 24 hours Vital signs and Labs for Last 24 Hours: Temp Pulse Resp BP Pulse Ox O2 Del Method O2 Flow Rate 98.1 F 107 H 16 90/50 L 94 L Room Air 2 04/05/24 08:00 04/05/24 08:00 04/05/24 08:00 04/05/24 08:00 04/05/24 08:00 04/05/24 10:38 04/04/24 06:23 Laboratory Results - last 24 hr 04/04/24 15:55: Sodium 127 L, Potassium 3.5 D, Chloride 88 L, Carbon Dioxide 40 H, Anion Gap 2.5 L, BUN 28 H, Creatinine 1.70 H, Estimated Creat Clear 53, Estimated GFR 42 L, Est GFR ( Amer) 51 L, Glucose 130 H, Calcium 8.2 L, Magnesium 2.3 D 04/05/24 10:45: WBC 8.1, RBC 4.71, Hgb 13.9 L, Hct 40.3 L, MCV 85.6, MCH 29.5, MCHC 34.5, RDW 15.5, Plt Count 320, MPV 10.4, Neut % (Auto) 61.8, Lymph % (Auto) 18.7, [place] % (Auto) 14.3 H, Eos % (Auto) 4.0, Baso % (Auto) 0.6, Neut # (Auto) 5.0, Lymph # (Auto) 1.5, [place] # (Auto) 1.2 H, Eos # (Auto) 0.3, Baso # (Auto) 0.1, Sodium 128 L, Potassium 4.1, Chloride 87 L, Carbon Dioxide 39 H, Anion Gap 6.1, BUN 27 H, Creatinine 1.60 H, Estimated Creat Clear 54, Estimated GFR 45 L, Est GFR ( Amer) 55 L, Glucose 97 D, Calcium 8.2 L, Phosphorus 3.1, Magnesium 2.1, Total Bilirubin 1.2, AST 56, ALT 165 H, Alkaline Phosphatase 210 H, Total Protein 5.7 L, Albumin 3.1 L, Globulin 2.6, Albumin/Globulin Ratio 1.2 I & O for Last 24 hours: Intake & Output 04/02/24 04/03/24 04/04/24 04/05/24 23:59 23:59 23:59 23:59 Intake Total 720 / 720 1395.173 / 1755.173 630 / 630 Output Total 5725 / 6625 7450 / 7800 350 / 350 Balance -5005 / -5905 -6054.827 / -6044.827 280 / 280 Weight 68.039 kg 74.072 kg 71.486 kg Constitutional Constitutional: no acute distress, average body habitus, chronically ill appearing and cooperative *Routine HEENT Exam Head: Present normocephalic Eye: Present EOMI and PERRL ENT: Present mucous membranes moist *Routine Neck Exam Neck: Present supple; Absent lymphadenopathy *Routine Respiratory Exam Respiratory: Present crackles (Patient is) and normal respiratory effort; Absent rhonchi or wheezes *Routine Cardiovascular Exam Cardiovascular: Present RRR *Routine Abdominal Exam Abdominal: Present soft and normoactive bowel sounds; Absent tenderness *Routine Rectal Exam Patient deferred: visual exam *Routine Exam Patient deferred: penile exam *Routine Extremities Exam Extremities: Present edema (Trace in ankles); Absent cyanosis or clubbing *Routine Skin Exam Skin: Present intact and warm; Absent rash *Routine Neurological Exam Neurological: Present alert, oriented X3 and moving all extremities; Absent altered mental status Results Data Completed and Pending Labs on day of discharge: Labs from last 24 hours 04/05/24 04/04/24 10:45 15:55 WBC 8.1 RBC 4.71 Hgb 13.9 L Hct 40.3 L MCV 85.6 MCH 29.5 MCHC 34.5 RDW 15.5 Plt Count 320 MPV 10.4 Neut % (Auto) 61.8 Lymph % (Auto) 18.7 [place] % (Auto) 14.3 H Eos % (Auto) 4.0 Baso % (Auto) 0.6 Neut # (Auto) 5.0 Lymph # (Auto) 1.5 [place] # (Auto) 1.2 H Eos # (Auto) 0.3 Baso # (Auto) 0.1 Sodium 128 L 127 L Potassium 4.1 3.5 D Chloride 87 L 88 L Carbon Dioxide 39 H 40 H Anion Gap 6.1 2.5 L BUN 27 H 28 H Creatinine 1.60 H 1.70 H Estimated Creat Clear 54 53 Estimated GFR 45 L 42 L Est GFR ( Amer) 55 L 51 L Glucose 97 D 130 H Calcium 8.2 L 8.2 L Phosphorus 3.1 Magnesium 2.1 2.3 D Total Bilirubin 1.2 AST 56 ALT 165 H Alkaline Phosphatase 210 H Total Protein 5.7 L Albumin 3.1 L Globulin 2.6 Albumin/Globulin Ratio 1.2 DS: Diagnosis Discharge Diagnosis (1) Acute decompensated heart failure: Status: Acute Code(s): I50.9 - Heart failure, unspecified (2) LV (left ventricular) mural thrombus: Status: Acute Code(s): I51.3 - Intracardiac thrombosis, not elsewhere classified (3) Transaminitis: Status: Acute Code(s): R74.01 - Elevation of levels of liver transaminase levels (4) RENAY (acute kidney injury): Status: Acute Code(s): N17.9 - Acute kidney failure, unspecified (5) Anasarca: Status: Acute Code(s): R60.1 - Generalized edema (6) Acute hypoxemic respiratory failure: Status: Acute Code(s): J96.01 - Acute respiratory failure with hypoxia (7) CKD stage 3a, GFR 45-59 ml/min: Status: Acute Code(s): N18.31 - Chronic kidney disease, stage 3a Meds Home Medications and Allergies Home Medications ?Medication ?Instructions ?Recorded ?Confirmed ?Type apixaban 5 mg tablet (Eliquis) 5 mg PO BID 30 days #60 tabs 03/29/24 04/03/24 Rx aspirin 81 mg tablet,delayed 81 mg PO DAILY 30 days #30 tabs 04/05/24 Rx release atorvastatin 80 mg tablet 80 mg PO HS #30 tabs 04/05/24 Rx bumetanide 1 mg tablet 2 mg (2 x 1 mg) PO DAILY #60 tabs 04/05/24 Rx clopidogrel 75 mg tablet 75 mg PO DAILY 30 days #30 tabs 04/05/24 Rx potassium chloride 20 mEq 20 meq PO BID 30 days #60 tabs 04/05/24 Rx tablet,extended release(part/cryst) (Klor-Con M) sacubitril 24 mg-valsartan 26 mg 1 tab PO BID 30 days #60 tabs 04/05/24 Rx tablet tamsulosin 0.4 mg capsule 0.4 mg PO HS 30 days #30 caps 04/05/24 Rx New Prescriptions to Start Prescriptions: aspirin Medina,Jace atorvastatin Medina,Jace bumetanide [place],Jace clopidogrel Jace Haney potassium chloride [Klor-Con M20] Jace Haney sacubitril-valsartan [place],Jace tamsulosin Jace Haney Allergies Allergy/AdvReac Type Severity Reaction Status Date / Time diclofenac (DICLOFENAC) Allergy Unknown Verified 08/12/21 13:08 Penicillins (PENICILLINS) Allergy Unknown Verified 08/12/21 13:08 propoxyphene (PROPOXYPHENE) Allergy Unknown Verified 08/12/21 13:08 tramadol (TRAMADOL) Allergy Unknown Verified 08/12/21 13:08 Discharge Plan Disposition Patient Disposition: Home, Self-Care Condition: Fair Discharge Order Discharge Orders: Discharge Order (Routine); Ordered 04/05/24 Ordered By: Jace Haney Follow up Plan Follow up with: Mariusz Sheth PA [Physician Nail Expert] - 04/23/24 11:15 am (additional appointment- [id number] with Mariusz ) Luis E Oscar APRN [Nurse Practitioner] - 04/17/24 2:45 pm Prescriptions/Medication Reconciliation: New atorvastatin 80 mg tablet 80 mg PO HS Qty: 30 0RF potassium chloride [Klor-Con M20] 20 mEq Tablet,Er Particles/Crystals 20 meq PO BID 30 Days Qty: 60 0RF tamsulosin 0.4 mg Capsule 0.4 mg PO HS 30 Days Qty: 30 0RF sacubitril-valsartan 24-26 mg Tablet 1 tab PO BID 30 Days Qty: 60 0RF bumetanide 1 mg tablet 2 mg PO DAILY Qty: 60 0RF Continued Eliquis 5 mg Tablet 5 mg PO BID 30 Days Qty: 60 0RF clopidogrel 75 mg Tablet 75 mg PO DAILY 30 Days Qty: 30 0RF aspirin 81 mg Tablet,Delayed Release (Dr/Ec) 81 mg PO DAILY 30 Days Qty: 30 0RF Discontinued atorvastatin 40 mg Tablet 80 mg PO HS 30 Days Qty: 60 0RF carvedilol 3.125 mg Tablet 3.125 mg PO BID 30 Days Qty: 60 0RF Problem Reconciliation Problems Reviewed?: Yes Patient Discharge Instructions ACTIVITY: Continue current activity DIET: continue same diet Patient Instructions: DI for Heart Failure, DI for Hypokalemia, DI for Hyponatremia Print Language: Lithuanian Providers Primary Care Provider: Provider,Referral Admit Provider: Jace Haney Attending Provider: Jace Haney
--- NOTE | 2024-04-05 11:59 | PC.NURSE ---
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
--- NOTE | 2024-04-05 11:59 | EXP.CARD.CON ---
History of Present Illness History of Present Illness Consult date: 04/05/24 Requesting physician: Jace Haney Consult reason: congestive heart failure Chief complaint: soa History of present illness: 53-year-old white male recently seen in this facility with late presentation NV, EF 15 to 20%, large LV thrombus, stents to LAD and left circumflex. He was diuresed 17 L last admission and was stabilizing and starting GDMT with a vest ordered. In the meantime patient left AMA. States the only medicine he took outpatient once his Eliquis. He called EMS very short of breath and was transferred back to this facility admitted by hospitalist overnight. Seen by Dr. Mcgill on rounds yesterday and patient was started on milrinone and Bumex drip. He has diuresed 10 L and feels back to baseline. BP is soft in the low 90s, heart rate 100, O2 is 94% on room air, creatinine is stable at 1.7. Trace peripheral edema, lungs are clear. Patient has been up ambulating without symptoms. [facility] Disclaimer: The information contained in this section may have been updated after the patient was seen, as this information can be updated by other users. Medical History Severe left ventricular systolic dysfunction (LVSD) Transaminitis RENAY (acute kidney injury) Anasarca LV (left ventricular) mural thrombus Acute hypoxemic respiratory failure Cardiogenic shock Non-STEMI (non-ST elevated myocardial infarction) Acute HFrEF (heart failure with reduced ejection fraction) Pneumonia Pleural effusion, bilateral Vitamin B12 deficiency Allergic rhinitis BPH (benign prostatic hyperplasia) Hyperlipidemia Insomnia Partial tear of right Achilles tendon Family History Other No significant family history Social History Smoking Status: Never smoker alcohol intake: never substance use type: former substance user and heroin current occupational status: unemployed Travel in the last 8 weeks: None Review of Systems Constitutional Constitutional: Denies fatigue and Denies weakness Eyes Eyes: Denies loss of vision ENT Ears, Nose, Mouth, and Throat: Denies hearing loss and Denies vertigo *Cardiovascular Cardiovascular: Denies chest pain, Denies dyspnea and Denies syncope *Respiratory Respiratory: Denies cough and Denies dyspnea *Gastrointestinal Gastrointestinal: Denies change in stool character, Denies nausea and Denies vomiting *Genitourinary Genitourinary: Denies difficulty urinating *Musculoskeletal Musculoskeletal: Denies muscle weakness Integumentary/Breasts Skin/Breast: Denies changing lesions *Neurologic Neurologic: Denies loss of vision, Denies syncope, Denies vertigo and Denies weakness Endocrine Endocrine: Denies fatigue Exam Data for Last 24 hours Vital signs and Labs for Last 24 Hours: Temp Pulse Resp BP Pulse Ox O2 Del Method O2 Flow Rate 98.1 F 107 H 16 90/50 L 94 L Room Air 2 04/05/24 08:00 04/05/24 08:00 04/05/24 08:00 04/05/24 08:00 04/05/24 08:00 04/05/24 10:38 04/04/24 06:23 Laboratory Results - last 24 hr 04/04/24 15:55: Sodium 127 L, Potassium 3.5 D, Chloride 88 L, Carbon Dioxide 40 H, Anion Gap 2.5 L, BUN 28 H, Creatinine 1.70 H, Estimated Creat Clear 53, Estimated GFR 42 L, Est GFR ( Amer) 51 L, Glucose 130 H, Calcium 8.2 L, Magnesium 2.3 D 04/05/24 10:45: WBC 8.1, RBC 4.71, Hgb 13.9 L, Hct 40.3 L, MCV 85.6, MCH 29.5, MCHC 34.5, RDW 15.5, Plt Count 320, MPV 10.4, Neut % (Auto) 61.8, Lymph % (Auto) 18.7, [place] % (Auto) 14.3 H, Eos % (Auto) 4.0, Baso % (Auto) 0.6, Neut # (Auto) 5.0, Lymph # (Auto) 1.5, [place] # (Auto) 1.2 H, Eos # (Auto) 0.3, Baso # (Auto) 0.1, Sodium 128 L, Potassium 4.1, Chloride 87 L, Carbon Dioxide 39 H, Anion Gap 6.1, BUN 27 H, Creatinine 1.60 H, Estimated Creat Clear 54, Estimated GFR 45 L, Est GFR ( Amer) 55 L, Glucose 97 D, Calcium 8.2 L, Phosphorus 3.1, Magnesium 2.1, Total Bilirubin 1.2, AST 56, ALT 165 H, Alkaline Phosphatase 210 H, Total Protein 5.7 L, Albumin 3.1 L, Globulin 2.6, Albumin/Globulin Ratio 1.2 I & O for Last 24 hours: Intake & Output 04/02/24 04/03/24 04/04/24 04/05/24 23:59 23:59 23:59 23:59 Intake Total 720 / 720 1395.173 / 1755.173 630 / 630 Output Total 5725 / 6625 7450 / 7800 350 / 350 Balance -5005 / -5905 -6054.827 / -6044.827 280 / 280 Weight 150 lb 163 lb 4.8 oz 157 lb 9.6 oz Constitutional Constitutional: no acute distress and cooperative *Routine HEENT Exam Eye: Present PERRL *Routine Respiratory Exam Respiratory: Present CTA bilaterally; Absent accessory muscle use, wheezes or crackles *Routine Cardiovascular Exam Cardiovascular: Present RRR, Normal S1 and Normal S2; Absent murmur, gallop or rubs *Routine Abdominal Exam Abdominal: Present soft; Absent tenderness *Routine Extremities Exam Extremities: Present pulses intact; Absent cyanosis or edema Comments: BLE excoriations, bed bugs per staff *Routine Skin Exam Skin: Present intact; Absent erythema or wounds *Routine Neurological Exam Neurological: Present alert and oriented X3 Routine Psychiatric Exam Psychiatric: Present cooperative Meds Home Medications and Allergies Home Medications ?Medication ?Instructions ?Recorded ?Confirmed ?Type apixaban 5 mg tablet (Eliquis) 5 mg PO BID 30 days #60 tabs 03/29/24 04/03/24 Rx aspirin 81 mg tablet,delayed 81 mg PO DAILY 30 days #30 tabs 04/05/24 Rx release atorvastatin 80 mg tablet 80 mg PO HS #30 tabs 04/05/24 Rx bumetanide 1 mg tablet 2 mg (2 x 1 mg) PO DAILY #60 tabs 04/05/24 Rx clopidogrel 75 mg tablet 75 mg PO DAILY 30 days #30 tabs 04/05/24 Rx potassium chloride 20 mEq 20 meq PO BID 30 days #60 tabs 04/05/24 Rx tablet,extended release(part/cryst) (Klor-Con M) sacubitril 24 mg-valsartan 26 mg 1 tab PO BID 30 days #60 tabs 04/05/24 Rx tablet tamsulosin 0.4 mg capsule 0.4 mg PO HS 30 days #30 caps 04/05/24 Rx New Prescriptions to Start Prescriptions: aspirin Medina,Jace atorvastatin [place],Jace bumetanide [place],Jace clopidogrel [place],Jace potassium chloride [Klor-Con M20] Medina,Jace sacubitril-valsartan [place],Jace tamsulosin Medina,Jace Allergies Allergy/AdvReac Type Severity Reaction Status Date / Time diclofenac (DICLOFENAC) Allergy Unknown Verified 08/12/21 13:08 Penicillins (PENICILLINS) Allergy Unknown Verified 08/12/21 13:08 propoxyphene (PROPOXYPHENE) Allergy Unknown Verified 08/12/21 13:08 tramadol (TRAMADOL) Allergy Unknown Verified 08/12/21 13:08 Assessment and Plan *Assessment and plan (1) Pleural effusion, bilateral: Status: Acute Category: Medical Code(s): J90 - Pleural effusion, not elsewhere classified (2) Pneumonia: Status: Acute Qualifiers: Laterality: unspecified laterality Lung location: unspecified part of lung Pneumonia type: due to unspecified organism Qualified Code(s): J18.9 - Pneumonia, unspecified organism Category: Medical Code(s): J18.9 - Pneumonia, unspecified organism (3) LV (left ventricular) mural thrombus: Status: Acute Category: Medical Code(s): I51.3 - Intracardiac thrombosis, not elsewhere classified (4) Acute hypoxemic respiratory failure: Status: Acute Category: Medical Code(s): J96.01 - Acute respiratory failure with hypoxia (5) RENAY (acute kidney injury): Status: Acute Category: Medical Code(s): N17.9 - Acute kidney failure, unspecified (6) Transaminitis: Status: Acute Category: Medical Code(s): R74.01 - Elevation of levels of liver transaminase levels (7) Hyperlipidemia: Status: Chronic Qualifiers: Hyperlipidemia type: unspecified Qualified Code(s): E78.5 - Hyperlipidemia, unspecified Category: Medical Code(s): E78.5 - Hyperlipidemia, unspecified (8) Non-STEMI (non-ST elevated myocardial infarction): Status: Acute Category: Medical Code(s): I21.4 - Non-ST elevation (NSTEMI) myocardial infarction (9) Anasarca: Status: Acute Category: Medical Code(s): R60.1 - Generalized edema (10) Severe left ventricular systolic dysfunction (LVSD): Status: Acute Category: Medical Code(s): I51.89 - Other ill-defined heart diseases Plan Acute on chronic left systolic heart failure -New earlier this month with late presentation NV and EF 15 to 20% -Patient left AMA without any HF meds or diuretics -Readmitted here, stable now post milrinone and Bumex drips, diuresed 10 L -Resume Entresto and Bumex at home. Patient cannot afford SGLT2 and no samples available at this time -BP too soft for Aldactone or BB CAD s/p SANAZ 03/2024 - LAD and LCX stenting 03/30 - Pt noncompliant with DAPT - discussed risk of stent thrombosis. He denies CP, no EKG changes. - Resume DAPT and Statin. No BB due to low BP Acute LV Thrombus - noted last week in setting of severe LV dysfunction - pt on Eliquis CKD-III - Cr 1.7 which appears to be his baseline Noncompliance - discussed with patient. *Case discussed at length with hospitalist. Patient appears diuresed back to baseline and is stable for discharge home. He has samples/co-pay cards for Eliquis and Entresto, other medicines we will see if hospital can provide 2-week supply as they are generic. Patient will have insurance as of 11 April. He will follow-up in our clinic in 1 week. He may reconsider LifeVest at that time, he defers for now due to [id number] cost.
[2024-04-05 12:00] VITALS: BP 109/65; PULSE 108; PULSE 110; RESP 18; TEMP 36.8; O2SAT 94
--- NOTE | 2024-04-05 12:00 | PC.NURSE ---
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 PT KEEPS UNPLUGGING HIS LEADS AND TURNING OFF THE MONITOR IN THE ROOM.
--- NOTE | 2024-04-05 15:07 | PC.NURSE ---
PT HAS BEEN EDUCATED ABOUT THE IMPORTANCE OF COMMING BACK TO THE PHARMACY TO BIOENGINEER THE REST OF HIS MEDICATION ON
--- NOTE | 2024-04-09 11:53 | SW/DCPLANNER ---
Phoned patient x2. Patient's amilbox isnt sat up at this time. Rahel Devlin Transfer Man
== END 2024-04-05 15:36 | disposition home or self-care (01) | DRG 281 ==
LOC: ER 09:39 → 2ND 09:43
PROVIDERS: Emergency Medicine; Admitting Provider Internal Medicine Adolescent Medicine; Emergency Provider Emergency Medicine; Visit Provider Internal Medicine Adolescent Medicine
DX: I21.4 Non-ST elevation (NSTEMI) myocardial infarction (principal); I50.20 Unspecified systolic (congestive) heart failure; I51.3 Intracardiac thrombosis, not elsewhere classified; N19 Unspecified kidney failure; I25.10 Atherosclerotic heart disease of native coronary artery without angina pectoris; Z59.9 Problem related to housing and economic circumstances, unspecified; Z79.899 Other long term (current) drug therapy; Z79.82 Long term (current) use of aspirin; Z79.01 Long term (current) use of anticoagulants; Z91.141 Patient's other noncompliance with medication regimen due to financial hardship
CPT/HCPCS: 36415; 71275; 80048; 80053; 83735; 83880; 84100; 84484; 85025; 87636; 93005; 99285; J1939; J1956; J2260; J2270; J3475; Q9967

== ENCOUNTER 2024-05-11 20:48 | Inpatient (IN) | payer MEDICARE, MEDICAID, SELFPAY ==
--- NOTE | 2024-05-11 20:47 | ECG_ITS ---
APPROVED REPORT Exam: Resting ECG HR:117 bpm ECG Measurements Heart Rate 117 AXES WY 150 P 54 QRSd 102 QRS -50 QT 344 T 59 QTc 413 Conclusion SINUS TACHYCARDIA LEFT ANTERIOR FASCICULAR BLOCK [QRS AXIS <= -45, QR IN I, RS IN II] NONSPECIFIC T-WAVE ABNORMALITY Electronically signed by : JOSE CARLOS NORTON, 05/12/2024 00:15:49
[2024-05-11 20:48] VITALS: BP 123/96; PULSE 117; RESP 22; TEMP 36.8; O2SAT 99; BMI 24.3
--- NOTE | 2024-05-11 20:54 | XR_ITS ---
PROCEDURE INFORMATION: Exam: XR Chest Exam date and time: 05/11/2024 9:01 PM Age: 54 years old Clinical indication: Cough and shortness of breath; Additional info: Chest pain TECHNIQUE: Imaging protocol: Radiologic exam of the chest. Views: 1 view. COMPARISON: CT ANGIO CHEST PE PROTOCOL 04/03/2024 6:50 AM FINDINGS: Lungs: Left mid lung infiltrate. Pleural spaces: Unremarkable. No pleural effusion. No pneumothorax. Heart/Mediastinum: Unremarkable. No cardiomegaly. Bones/joints: Unremarkable. IMPRESSION: Left mid lung infiltrate.
[2024-05-11 21:00] LABS: Basophils # 0.1 K/mm3 (0-0.2); Basophils % 0.6 % (0.1-2.0); Eosinophils # 0.2 K/mm3 (0.0-0.4); Eosinophils % 2.1 % (0.1-12.0); Hematocrit 37.4 % (42.0-52.0); Hemoglobin 12.4 g/dL (14.1-18.0); Lymphocytes # 1.8 K/mm3 (0.7-4.5); Lymphocytes % 17.8 % (10-50); Mean Corpuscular HGB Conc 33.2 g/dL (31.8-35.4); Mean Corpuscular Hemoglobin 29.5 pg (27.0-31.2); Mean Platelet Volume 9.7 fl (7.4-10.4); Monocytes # 0.8 K/mm3 (0.1-1.0); Monocytes % 8.1 % (1.7-9.3); Neutrophils # 7.1 K/mm3 (1.8-7.8); Neutrophils % 71.1 % (37.0-80.0); Platelet Count 449 K/mm3 (142-424)
[2024-05-11 21:01] VITALS: PULSE 117
[2024-05-11 21:13] LABS: Magnesium 1.7 mg/dl (1.6-2.3)
[2024-05-11 21:14] LABS: Alanine Aminotransferase 45 U/L (12-78); Albumin Level 3.9 g/dl (3.5-5.0); Albumin/Globulin Ratio 1.3 (1.1-1.8); Alkaline Phosphatase 175 U/L (38-126); Anion Gap 15.7 mEq/L (5-15); Aspartate Amino Transferase 53 U/L (17-59); Blood Urea Nitrogen 20 mg/dl (9-20); Calcium 9.1 mg/dl (8.4-10.2); Carbon Dioxide 28 mmol/L (22.0-30.0); Chloride 96 mmol/L (98-107); Creatinine Clearance Estimated 58 mL/min (50-200); Estimated Glomerular Filt Rate 49 ml/min (>60); GFR (African American) 59 ML/MIN (>60); Globulin 2.9 g/dL (1.3-3.2); Glucose 138 mg/dl (74-100); Potassium 3.7 mmoL/L (3.5-5.1); Sodium 136 mmol/L (136-145); Total Protein,Serum 6.8 g/dl (6.3-8.2)
[2024-05-11] MEDS: BELLADONNA ALKALOIDS 60 ML ML PO (21:18)
[2024-05-11 21:25] LABS: NT Pro Brain Natriuretic Pep. 7660 pg/mL (0-125)
--- NOTE | 2024-05-11 21:30 | ED_ITS ---
Discharge Plan Disposition Patient Disposition: Admitted Condition: Fair Clinical Impressions Clinical Impression: Chest pain, Lingular pneumonia, Acute exacerbation of CHF (congestive heart failure) Discharge ED Provider: Carmen Zhu HPI General Chief Complaint: Chest Pain Stated Complaint: Chest Pain Time Seen by Provider: 05/11/24 20:53 Mode of Arrival: EMS Source of Information: Patient and EMS Limitations: No Limitations Description of Symptoms (Recalled from ER Triage Doc. by RN): Patient presents to ED via [facility] with c/o of chest pain rating 8/10. Patient describes pain is substernal non radiating. Patient was placed on 8L of O2 in EMS truck, patient was able to be titrated to 4 upon arrival sating 99%. Patient states pain started 20 minutes ago, has hx of heart stents and a recent hospital stay for chest pain. History of Present Illness HPI narrative: This patient is a 54-year-old male with a history of advanced heart failure with an EF of around 20%, CAD status post stenting, BPH, hypertension, hyperlipidemia presenting to the emergency department for evaluation with concern for chest pain. Patient was admitted in March with concerns for acute decompensated heart failure. He was diuresed over 18 L, LifeVest was recommended, however he went home without 1 because of insurance issues. He notes that since going home, he has been doing okay and has been compliant with home medications, though he is about to run out of them. He has not followed up with cardiology since leaving, though he was supposed to. He states that around 1 hour prior to arrival, he started having midsternal chest pain that was very severe. He states that it does not go anywhere else. EMS noted that he was hypoxic upon their arrival satting in the 80s, so they put him on supplemental oxygen. They gave him aspirin and nitroglycerin prior to arrival. Patient denies any other concerns or complaints, except stating that he has had persistent swelling since his admission that did not ever completely go away. Related Data Previous Rx's ?Medication ?Instructions ?Recorded apixaban 5 mg tablet (Eliquis) 5 mg PO BID 30 days #60 tabs 03/29/24 aspirin 81 mg tablet,delayed 81 mg PO DAILY 30 days #30 tabs 04/05/24 release atorvastatin 80 mg tablet 80 mg PO HS #30 tabs 04/05/24 bumetanide 1 mg tablet 2 mg (2 x 1 mg) PO DAILY #60 tabs 04/05/24 clopidogrel 75 mg tablet 75 mg PO DAILY 30 days #30 tabs 04/05/24 potassium chloride 20 mEq 20 meq PO BID 30 days #60 tabs 04/05/24 tablet,extended release(part/cryst) (Klor-Con M) sacubitril 24 mg-valsartan 26 mg 1 tab PO BID 30 days #60 tabs 04/05/24 tablet tamsulosin 0.4 mg capsule 0.4 mg PO HS 30 days #30 caps 04/05/24 Allergies Allergy/AdvReac Type Severity Reaction Status Date / Time diclofenac (DICLOFENAC) Allergy Unknown Verified 08/12/21 13:08 Penicillins (PENICILLINS) Allergy Unknown Verified 08/12/21 13:08 propoxyphene (PROPOXYPHENE) Allergy Unknown Verified 08/12/21 13:08 tramadol (TRAMADOL) Allergy Unknown Verified 08/12/21 13:08 [facility] Disclaimer: The information contained in this section may have been updated after the patient was seen, as this information can be updated by other users. Medical History Severe left ventricular systolic dysfunction (LVSD) Transaminitis RENAY (acute kidney injury) Anasarca LV (left ventricular) mural thrombus Acute hypoxemic respiratory failure Cardiogenic shock Non-STEMI (non-ST elevated myocardial infarction) Acute HFrEF (heart failure with reduced ejection fraction) Pneumonia Pleural effusion, bilateral Vitamin B12 deficiency Allergic rhinitis BPH (benign prostatic hyperplasia) Hyperlipidemia Insomnia Partial tear of right Achilles tendon Family History Other No significant family history Social History Smoking Status: Current every day smoker tobacco type: smokeless tobacco alcohol intake: never substance use type: former substance user and heroin current occupational status: unemployed Travel in the last 8 weeks: None Have you lived/traveled outside [place] in past 30 days?: No Contact w/someone who lives/traveled outside US past 30 days?: No Exposure to someone with infectious disease in past 14 days?: No Do you have a fever (greater than 100.4 F or 38 C)?: No Have you tested positive for COVID-19: No Exposed to someone with COVID-19 in past 14 days?: No Do you have a sore throat?: No Do you have a cough?: No Do you have any weakness?: No Do you have any diarrhea?: No Are you experiencing any unusual bleeding?: No Do you have any muscle aches/pain?: No Do you have any abdominal pain?: No Are you experiencing loss of taste or smell?: No Other Medical History Have you received the Flu Vaccine for this season: No Have you received the Pneumonia Vaccine: No ROS Obtained: Yes All systems reviewed & no additional complaints except as documented Physical Exam General General appearance: alert and in no apparent distress Head Head exam: atraumatic and normocephalic Eye Eye exam: Present normal appearance, PERRL and EOMI ENT ENT exam: Present normal exam, normal oropharynx, mucous membranes moist and normal external ear exam Neck Neck exam: Present normal inspection, full ROM and trachea midline; Absent tenderness Chest Chest inspection: Present normal inspection and symmetric chest wall rise; Absent tenderness Respiratory Respiratory exam: Present normal lung sounds bilaterally; Absent respiratory distress, wheezes, stridor or accessory muscle use Cardiovascular Cardiovascular exam: Present normal rhythm and tachycardia Abdominal Exam Abdominal exam: Present soft; Absent distention, tenderness or guarding Extremities Exam Extremities exam: Present full ROM, normal capillary refill and edema (Symmetric bilateral lower extremity edema); Absent tenderness Back Exam Back exam: Present normal inspection and full ROM; Absent tenderness Neurological Exam Neurological exam: Present alert, oriented X3, CN II-XII intact and normal gait; Absent motor sensory deficit Psychiatric Psychiatric exam: Present normal affect and normal mood Skin Skin exam: Present warm and dry HEART Score HEART Score HEART Score assessment performed?: Yes History (anamnesis): Moderately suspicious ECG: Non-specific disturbance Age: 45-65 years Risk factors: Atherosclerosis history Troponin: > 3x normal limit HEART Score: 7 Critical Care Critical Care Time Critical Care Time: Yes Attestation: On 05/11/24, the high probability of a clinically significant, sudden or life threatening deterioration of the following system(s) required my full and direct attention, intervention and personal management. The time I documented below is in addition to time spent performing reported procedures but includes the following listed in this critical care notation. Total Time Total Critical Care Time: 30 Medical Decision Making Matty Inquiry Pt receiving controlled substance: No Vital Signs Vital Signs: 05/11/24 20:48 05/11/24 21:01 05/11/24 22:00 Temperature 98.2 F Temperature Source Oral Pulse Rate 117 H 110 H Pulse Rate [Right Brachial] 117 H Respiratory Rate 22 22 Blood Pressure 113/86 Blood Pressure [Right Arm] 123/96 H Blood Pressure Mean 92 Blood Pressure Mean [Right Arm] 105 Blood Pressure Source Blood Pressure Source [Right Arm] Automatic Cuff Blood Pressure Position Blood Pressure Position [Right Arm] Supine 02 Sat by Pulse Oximetry 99 98 Oxygen Delivery Method Nasal Cannula Room Air Oxygen Flow Rate (LPM) 4 05/11/24 22:30 05/11/24 23:48 Temperature 98.2 F Temperature Source Oral Pulse Rate 109 H 106 H Pulse Rate [Right Brachial] Respiratory Rate 22 20 Blood Pressure 114/85 98/76 L Blood Pressure [Right Arm] Blood Pressure Mean 90 Blood Pressure Mean [Right Arm] Blood Pressure Source Automatic Cuff Blood Pressure Source [Right Arm] Blood Pressure Position Supine Blood Pressure Position [Right Arm] 02 Sat by Pulse Oximetry 98 Oxygen Delivery Method Room Air Room Air Oxygen Flow Rate (LPM) Lab Data Labs: Lab Results 05/11/24 20:52: WBC 10.0, RBC 4.20 L, Hgb 12.4 L, Hct 37.4 L, MCV 89.0, MCH 29.5, MCHC 33.2, RDW 19.0 H, Plt Count 449 H, MPV 9.7, Neut % (Auto) 71.1, Lymph % (Auto) 17.8, [place] % (Auto) 8.1, Eos % (Auto) 2.1, Baso % (Auto) 0.6, Neut # (Auto) 7.1, Lymph # (Auto) 1.8, [place] # (Auto) 0.8, Eos # (Auto) 0.2, Baso # (Auto) 0.1, D-Dimer 2.37 H, Sodium 136, Potassium 3.7, Chloride 96 L, Carbon Dioxide 28, Anion Gap 15.7 H, BUN 20, Creatinine 1.50 H, Estimated Creat Clear 58, Estimated GFR 49 L, Est GFR ( Amer) 59, Glucose 138 H, Calcium 9.1, Magnesium 1.7, Total Bilirubin 1.0, AST 53, ALT 45, Alkaline Phosphatase 175 H, Troponin I 0.80 H, NT-Pro-B Natriuret Pep 7660 H, Total Protein 6.8, Albumin 3.9, Globulin 2.9, Albumin/Globulin Ratio 1.3, TSH 4.71 H, Thyroxine (T4) 9.0 05/11/24 22:15: SARS-CoV-2 (PCR) Not detected, Influenza A Untype (PCR) Not detected, Influenza Type B (PCR) Not detected 05/11/24 20:52 05/11/24 20:52 Response Orders (Tests/Meds): ED MEDICATIONS Generic Name Dose Route Start Last Admin Trade Name Freearl PRN Reason Stop Dose Admin Acetaminophen 650 mg 05/11/24 23:45 Acetaminophen 325mg Tab PO 06/10/24 23:44 Q4HP PRN Fever or Mild Pain (1-3) Hydrocodone Bitart/Acetaminophen 1 tab 05/11/24 23:45 Hydrocodone/Apap 5/325 Mg Tablet PO 06/10/24 23:44 Q4HP PRN Mild to Moderate Pain (1-6) Azithromycin 250 mg 05/12/24 09:00 Azithromycin 250mg Tablet PO 05/22/24 08:59 DAILY NOVA Benzonatate 200 mg 05/11/24 23:45 Benzonatate 100mg Capsule PO 06/11/24 08:59 TID PRN Cough Furosemide 40 mg 05/12/24 09:00 Furosemide 40mg/4ml Vial IV 06/11/24 08:59 BIDL NOVA Ceftriaxone Sodium 1 gm/ 50 mls @ 100 mls/hr 05/12/24 23:00 Sodium Chloride IV 05/22/24 22:59 Q24H NOVA Morphine Sulfate 2 mg 05/11/24 23:45 Morphine 2mg/Ml Syringe IV 06/10/24 23:44 Q4HP PRN Severe Pain (7-10) Ondansetron HCl 4 mg 05/11/24 23:45 Ondansetron 4mg/2ml Vial IV 06/10/24 23:44 Q8HP PRN Nausea Discontinued Medications Generic Name Dose Route Start Last Admin Trade Name Freq PRN Reason Stop Dose Admin Acetaminophen 1,000 mg 05/11/24 23:06 05/11/24 23:18 Acetaminophen 1,000mg/100ml Vial IV 05/11/24 23:07 1,000 mg ONCE ONE Administration Belladonna Alkaloids 60 ml 05/11/24 21:16 05/11/24 21:18 Belladonna Alkaloids 60 Ml Ml PO 05/11/24 21:17 60 ml ONCE ONE Administration Bumetanide 2 mg 05/11/24 22:39 05/11/24 22:41 Bumetanide 1mg/4ml Vial IV 05/11/24 22:40 2 mg ONCE ONE Administration Ceftriaxone Sodium 2 gm/ 100 mls @ 200 mls/hr 05/11/24 23:06 05/11/24 23:31 Sodium Chloride IV 05/11/24 23:35 200 mls/hr ONCE ONE Administration Azithromycin 500 mg/ Sodium 250 mls @ 250 mls/hr 05/11/24 23:06 05/11/24 23:43 Chloride IV 05/11/24 23:07 250 mls/hr ONCE ONE Administration Iopamidol 70 ml 05/11/24 22:14 05/11/24 22:15 Iopamidol-370 (76%);100ml Bottle IV 05/11/24 22:15 70 ml ONCE ONE Administration Ketorolac Tromethamine 15 mg 05/11/24 23:06 05/11/24 23:18 Ketorolac 30mg/Ml Vial IV 05/11/24 23:07 15 mg ONCE ONE Administration Morphine Sulfate 4 mg 05/11/24 22:59 05/11/24 23:06 Morphine 4mg/Ml Syringe IV 05/11/24 23:00 Not Given ONCE ONE Ondansetron HCl 4 mg 05/11/24 22:59 05/11/24 23:06 Ondansetron 4mg/2ml Vial IV 05/11/24 23:00 Not Given ONCE ONE Sodium Chloride 50 ml 05/11/24 22:14 05/11/24 22:15 0.9 % Sodium Chloride 50 Ml Vial IV 05/11/24 22:15 50 ml ONCE ONE Administration Sodium Chloride 10 ml 05/11/24 22:14 05/11/24 22:15 Sodium Chloride 0.9% 10ml Syr (Rad Only) IV 05/11/24 22:15 10 ml ONCE ONE Administration ORDERS Category Date Time Status CT angio chest PE protocol Stat Cat Scan 05/11/24 21:54 Completed CXR --portable [XR chest portable] Stat Exams 05/11/24 20:54 Completed BNP [NT Pro Brain Natriuretic Pep.] Stat Lab 05/11/24 20:52 Completed Complete Blood Count Auto Diff Stat Lab 05/11/24 20:52 Completed Comprehensive Metabolic Panel Stat Lab 05/11/24 20:52 Completed D-Dimer Stat Lab 05/11/24 20:52 Completed MAG [Magnesium] Stat Lab 05/11/24 20:52 Completed Rapid PCR Covid and Flu A/B Stat Lab 05/11/24 22:15 Completed T4 (Thyroxine) Stat Lab 05/11/24 20:52 Completed TSH [Thyroid Stimulating Hormone] Stat Lab 05/11/24 20:52 Completed Trop I [Troponin I] Stat Lab 05/11/24 20:52 Completed Troponin I Q3H Lab 05/11/24 23:54 Ordered Troponin I Q3H Lab 05/12/24 02:54 Ordered Blood Culture Stat Micro 05/11/24 23:29 Received ECG Data Tracing #1: Attestation: I reviewed this ECG and interpreted as documented below: ECG Narrative: Sinus tachycardia with a ventricular rate of [address] changes without acute STEMI. ECG initial impression date: 05/11/24 ECG initial impression time: 20:50 Tracing #2: Attestation: I reviewed this ECG and interpreted as documented below: ECG Narrative: Sinus tachycardia with a ventricular rate of 109 bpm. No acute STEMI. No significant changes from prior EKG. ECG initial impression date: 05/11/24 ECG initial impression time: 21:55 Tracing #3: Attestation: I reviewed this ECG and interpreted as documented below: ECG Narrative: Sinus tachycardia with a ventricular rate of 110 bpm. No acute STEMI. No significant changes from prior EKG. Right ventricular hypertrophy. Nonspecific T wave abnormality is not significantly changed ECG initial impression date: 05/11/24 ECG initial impression time: 23:05 MDM Narrative Medical Decision Narrative: In summary, this patient is a 54-year-old male presenting to the Emergency Department for evaluation of chest pain. Differential diagnoses considered include but are not limited to ACS, dysrhythmia, GERD, acute heart failure, PE, pneumonia, pleurisy, pneumothorax. Ruling out the most morbid conditions drove assessment. It should be noted patient's history includes advanced heart failure, CAD, hypertension, hyperlipidemia which are not at goal therapy. This complicates all aspects of care by increasing patient's risk for morbidity. I reviewed patient's past medical records and noted recent admission in March with aggressive diuresis in the setting of new heart failure with anasarca. EF noted to be 20% at that time. He received 5 stents.. On exam, the patient is lying in bed in no acute distress. His heart rate is in the 1 teens. Blood pressure normal. O2 saturation normal on 2 L nasal cannula. He has reassuring cardiopulmonary exam. Workup included CBC, CMP, troponin, D- dimer, BNP, chest x-ray, EKG. He received aspirin and nitro prior to arrival. I gave him a GI cocktail. EKG demonstrates no STEMI. He is tachycardic. I independently interpreted chest x-ray prior to the radiologist read and noted left-sided consolidation. Please see their read for final interpretation. Labs were obtained that demonstrated neutrophilic predominance with borderline leukocytosis. He has mildly elevated creatinine which is around his baseline. Troponin is elevated at 0.80, though it was persistently elevated on previous admission. BNP is elevated at 7660, similar to prior. On multiple subsequent reassessment, the patient kept complaining of severe chest pain. I will monitor him very closely on cardiac telemetry and noted no significant changes in his vital signs, he was persistently mildly tachycardic. I obtained multiple EKGs which did not demonstrate any acute ST segment changes. Despite administration of GI cocktail, Toradol, Tylenol, patient still had persistent pain. I did a CT PE for elevated D-dimer and persistent chest pain, and he does not have a PE but he does have a lingular consolidation as well as pleural effusions. Consolidation could be infectious, as he does complain of some cough, so I gave him IV Rocephin and azithromycin. I did not give him a sepsis bolus with concern for infection in the setting of tachycardia and tachypnea, as he has extensive heart failure and has signs of volume overload on clinical exam. Ultimately, I feel he would benefit from admission for close monitoring and serial troponins. I had an interactive discussion with the hospitalist who admitted the patient in stable condition.
[2024-05-11 21:43] LABS: Thyroid Stimulating Hormone 4.71 uIU/mL (0.465-4.68)
[2024-05-11 21:46] LABS: D-Dimer 2.37 ug/mL (0.0-0.5)
--- NOTE | 2024-05-11 21:53 | ECG_ITS ---
APPROVED REPORT Exam: Resting ECG HR:109 bpm ECG Measurements Heart Rate 109 AXES AL 159 P 60 QRSd 98 QRS 154 QT 368 T 31 QTc 432 Conclusion SINUS TACHYCARDIA POSSIBLE RIGHT VENTRICULAR HYPERTROPHY [SOME/ALL OF: PROMINENT R IN V1, LATE TRANSITION, RAD, BOB, SSS] NONSPECIFIC T-WAVE ABNORMALITY Electronically signed by : JOSE CARLOS NORTON, 05/12/2024 00:15:31
--- NOTE | 2024-05-11 21:54 | CT_ITS ---
PROCEDURE INFORMATION: Exam: CTA Chest With Contrast Exam date and time: 05/11/2024 10:09 PM Age: 54 years old Clinical indication: Shortness of breath; Additional info: Chest pain TECHNIQUE: Imaging protocol: Computed tomographic angiography of the chest with contrast. Exam focused on the arteries. 3D rendering (Not supervised by radiologist): MIP and/or 3D reconstructed images were created by the technologist. Radiation optimization: All CT scans at this facility use at least one of these dose optimization techniques: automated exposure control; mA and/or kV adjustment per patient size (includes targeted exams where dose is matched to clinical indication); or iterative reconstruction. Contrast material: ISOVUE; Contrast volume: 70 ml; Contrast route: INTRAVENOUS (IV); COMPARISON: CT ANGIO CHEST PE PROTOCOL 04/03/2024 6:50 AM FINDINGS: Pulmonary arteries: Normal. No pulmonary emboli. Aorta: Unremarkable. No aortic aneurysm. No aortic dissection. Lungs: Rounded 4 cm infiltrate in the lingula. Pleural spaces: Unremarkable. No pneumothorax. No pleural effusion. Heart: Unremarkable. No cardiomegaly. No pericardial effusion. Lymph nodes: Unremarkable. No enlarged lymph nodes. Bones/joints: Unremarkable. No acute fracture. Soft tissues: Unremarkable. IMPRESSION: Lingular infiltrate.
[2024-05-11 22:00] VITALS: BP 113/86; PULSE 110; RESP 22; O2SAT 98
[2024-05-11] MEDS: IOPAMIDOL-370 (76%);100ML BOTTLE 70 ML IV (22:15)
[2024-05-11] MEDS: SODIUM CHLORIDE 0.9% 10ML SYR (RAD ONLY) 10 ML IV (22:15)
[2024-05-11] MEDS: 0.9 % SODIUM CHLORIDE 50 ML VIAL IV (22:15)
[2024-05-11 22:20] LABS: Coronavirus 19, PCR Not Detected (NotDetected); Influenza A, PCR Not Detected (NotDetected); Influenza B, PCR Not Detected (NotDetected)
[2024-05-11 22:30] VITALS: BP 114/85; PULSE 109; RESP 22; O2SAT 98
[2024-05-11] MEDS: BUMETANIDE 1MG/4ML VIAL 2 MG IV (22:41)
--- NOTE | 2024-05-11 23:00 | ECG_ITS ---
APPROVED REPORT Exam: Resting ECG HR:110 bpm ECG Measurements Heart Rate 110 AXES ID 157 P 60 QRSd 98 QRS 159 QT 369 T 29 QTc 434 Conclusion SINUS TACHYCARDIA POSSIBLE RIGHT VENTRICULAR HYPERTROPHY [SOME/ALL OF: PROMINENT R IN V1, LATE TRANSITION, RAD, BOB, SSS] NONSPECIFIC T-WAVE ABNORMALITY ABNORMAL ECG UNCONFIRMED REPORT Electronically signed by : HOLDEN MAGALLON, 05/12/2024 00:39:29
--- NOTE | 2024-05-11 23:07 | PC.NURSE ---
called hospitalist, he states he will call her back at this time.
[2024-05-11] MEDS: ACETAMINOPHEN 1,000MG/100ML VIAL 1000 MG IV (23:18)
[2024-05-11] MEDS: KETOROLAC 30MG/ML VIAL 15 MG IV (23:18)
[2024-05-11] MEDS: CEFTRIAXONE SODIUM 2 GM in 0.9 % SODIUM CHLORIDE 100 ML IV (23:31)
[2024-05-11] MEDS: AZITHROMYCIN 500 MG in 0.9 % SODIUM CHLORIDE 250 ML 250 MG IV (23:43)
[2024-05-11 23:48] VITALS: BP 98/76; PULSE 106; RESP 20; TEMP 36.8; O2SAT 98
--- NOTE | 2024-05-11 23:48 | PC.NURSE ---
report given to EZEQUIEL Lipscomb on second floor.
--- NOTE | 2024-05-11 23:50 | P.HP_ITS ---
<Statement entered by John Parikh MD - 05/12/24 14:14> Personally interviewed, examined patient and agree with plan of care as outlined by the ROLLING ATTENDANT. History of Present Illness *Admission Date: 05/11/24 *Reason for visit:: Chest pain *History of present illness: This is a 54-year-old male who is well-known to our service and has a past medical history significant for severe left ventricular systolic dysfunction, transaminitis, acute kidney injury, CKD, left ventricular mural thrombosis, cardiogenic shock, pleural effusion, vitamin B12 deficiency, allergic rhinitis, BPH, hyperlipidemia, insomnia, coronary artery disease, and tear of the right Achilles tendon who presents with an acute onset of midsternal chest pain, that was without any radiation, without any diaphoresis, had a duration of approximately 1 hour, and occurred while at rest. Due to patient's symptoms, he was transition to [facility] via EMS for further evaluation. EMS reports that patient was hypoxic with room air sats in the 80s. While in the emergency room, patient CT scan of the head showed a right pleural effusion and lingular pneumonia. Due to these findings, patient has been admitted for further management. During my evaluation of the patient, patient states that he has been having his chest pain 1 hour prior to arrival. He said his midsternal and is now improved. Is worth mentioning that patient was recently admitted to the facility for he was diagnosed with decompensated heart failure and status post coronary artery intervention with 5 stents. Post stent placement patient was placed on DAPT therapy and there was a recommendation for LifeVest. Unfortunately, due to patient's insurance he has not obtain LifeVest. Moreover, patient states he is low on his medications. He also reports having a nonproductive cough. Currently, patient is denying any chest pain, lightheadedness, dizziness, fever, chills, PND, orthopnea, nausea, vomiting, or diarrhea. Additional pertinent vitals obtained include a red blood cell count of 4.20, hemoglobin 12.4, hematocrit 37.4, platelet count of 449, D-dimer 2.37, chloride of 96, creatinine 1.50, GFR 49, blood glucose 138, alkaline phosphate 175, troponin 0.80, BNP of 7660, and TSH of 4.71. [facility] Disclaimer: The information contained in this section may have been updated after the p atient was seen, as this information can be updated by other users. Medical History Severe left ventricular systolic dysfunction (LVSD) Transaminitis RENAY (acute kidney injury) Anasarca LV (left ventricular) mural thrombus Acute hypoxemic respiratory failure Cardiogenic shock Non-STEMI (non-ST elevated myocardial infarction) Acute HFrEF (heart failure with reduced ejection fraction) Pneumonia Pleural effusion, bilateral Vitamin B12 deficiency Allergic rhinitis BPH (benign prostatic hyperplasia) Hyperlipidemia Insomnia Partial tear of right Achilles tendon Family History Other No significant family history Social History Smoking Status: Current every day smoker tobacco type: smokeless tobacco alcohol intake: never substance use type: former substance user and heroin current occupational status: unemployed Travel in the last 8 weeks: None Have you lived/traveled outside [place] in past 30 days?: No Contact w/someone who lives/traveled outside US past 30 days?: No Exposure to someone with infectious disease in past 14 days?: No Do you have a fever (greater than 100.4 F or 38 C)?: No Have you tested positive for COVID-19: No Exposed to someone with COVID-19 in past 14 days?: No Do you have a sore throat?: No Do you have a cough?: No Do you have any weakness?: No Do you have any diarrhea?: No Are you experiencing any unusual bleeding?: No Do you have any muscle aches/pain?: No Do you have any abdominal pain?: No Are you experiencing loss of taste or smell?: No Other Medical History Have you received the Flu Vaccine for this season: No Have you received the Pneumonia Vaccine: No Review of Systems Review of Systems Review of systems:: pertinent systems reviewed and negative unless documented below Constitutional Constitutional: Reports system reviewed and no additional complaints, except as documented Eyes Eyes: Reports system reviewed and no additional complaints, except as documented ENT Ears, Nose, Mouth, and Throat: Reports system reviewed and no additional complaints, except as documented *Cardiovascular Cardiovascular: Reports chest pain at rest, Reports dyspnea on exertion and Reports edema *Respiratory Respiratory: Reports cough and Reports dyspnea on exertion *Gastrointestinal Gastrointestinal: Reports system reviewed and no additional complaints, except as documented *Genitourinary Genitourinary: Reports system reviewed and no additional complaints, except as documented *Musculoskeletal Musculoskeletal: Reports system reviewed and no additional complaints, except as documented Integumentary/Breasts Skin/Breast: Reports system reviewed and no additional complaints, except as doc umented *Neurologic Neurologic: Reports system reviewed and no additional complaints, except as documented Psychiatric Psychiatric: Reports system reviewed and no additional complaints, except as documented Endocrine Endocrine: Reports system reviewed and no additional complaints, except as documented Hematologic/Lymphatic Hematologic/Lymphatic: Reports system reviewed and no additional complaints, ex cept as documented Allergic/Immunologic Allergic/Immunologic: Reports system reviewed and no additional complaints, except as documented Meds Home Medications and Allergies Home Medications ?Medication ?Instructions ?Recorded ?Confirmed ?Type apixaban 5 mg tablet (Eliquis) 5 mg PO BID 30 days #60 tabs 03/29/24 04/17/24 Rx aspirin 81 mg tablet,delayed 81 mg PO DAILY 30 days #30 tabs 04/05/24 04/17/24 Rx release atorvastatin 80 mg tablet 80 mg PO HS #30 tabs 04/05/24 04/17/24 Rx bumetanide 1 mg tablet 2 mg (2 x 1 mg) PO DAILY #60 tabs 04/05/24 04/17/24 Rx clopidogrel 75 mg tablet 75 mg PO DAILY 30 days #30 tabs 04/05/24 04/17/24 Rx potassium chloride 20 mEq 20 meq PO BID 30 days #60 tabs 04/05/24 04/17/24 Rx tablet,extended release(part/cryst) (Klor-Con M) sacubitril 24 mg-valsartan 26 mg 1 tab PO BID 30 days #60 tabs 04/05/24 04/17/24 Rx tablet tamsulosin 0.4 mg capsule 0.4 mg PO HS 30 days #30 caps 04/05/24 04/17/24 Rx New Prescriptions to Start Prescriptions: Allergies Allergy/AdvReac Type Severity Reaction Status Date / Time diclofenac (DICLOFENAC) Allergy Unknown Verified 08/12/21 13:08 Penicillins (PENICILLINS) Allergy Unknown Verified 08/12/21 13:08 propoxyphene (PROPOXYPHENE) Allergy Unknown Verified 08/12/21 13:08 tramadol (TRAMADOL) Allergy Unknown Verified 08/12/21 13:08 Exam Data for Last 24 hours Vital signs and Labs for Last 24 Hours: Temp Pulse Resp BP Pulse Ox O2 Del Method O2 Flow Rate 98.2 F 106 H 20 98/76 L 98 Room Air 4 05/11/24 23:48 05/11/24 23:48 05/11/24 23:48 05/11/24 23:48 05/11/24 22:30 05/11/24 23:48 05/11/24 20:48 Laboratory Results - last 24 hr 05/11/24 20:52: WBC 10.0, RBC 4.20 L, Hgb 12.4 L, Hct 37.4 L, MCV 89.0, MCH 29.5, MCHC 33.2, RDW 19.0 H, Plt Count 449 H, MPV 9.7, Neut % (Auto) 71.1, Lymph % (Auto) 17.8, [place] % (Auto) 8.1, Eos % (Auto) 2.1, Baso % (Auto) 0.6, Neut # (Auto) 7.1, Lymph # (Auto) 1.8, [place] # (Auto) 0.8, Eos # (Auto) 0.2, Baso # (Auto) 0.1, D-Dimer 2.37 H, Sodium 136, Potassium 3.7, Chloride 96 L, Carbon Dioxide 28, Anion Gap 15.7 H, BUN 20, Creatinine 1.50 H, Estimated Creat Clear 58, Estimated GFR 49 L, Est GFR ( Amer) 59, Glucose 138 H, Calcium 9.1, Magnesium 1.7, Total Bilirubin 1.0, AST 53, ALT 45, Alkaline Phosphatase 175 H, Troponin I 0.80 H, NT-Pro-B Natriuret Pep 7660 H, Total Protein 6.8, Albumin 3.9, Globulin 2.9, Albumin/Globulin Ratio 1.3, TSH 4.71 H, Thyroxine (T4) 9.0 05/11/24 22:15: SARS-CoV-2 (PCR) Not detected, Influenza A Untype (PCR) Not detected, Influenza Type B (PCR) Not detected I & O for Last 24 hours: Intake & Output 05/08/24 05/09/24 05/10/24 05/11/24 23:59 23:59 23:59 23:59 Weight 72.575 kg Constitutional Constitutional: no acute distress and cooperative *Routine HEENT Exam Head: Present normocephalic and atraumatic Eye: Present EOMI, PERRL and normal accommodation ENT: Present mucous membranes moist *Routine Neck Exam Neck: Present supple, full ROM and trachea midline Routine Chest/Breast/Axilla Exam Chest wall: Present tenderness *Routine Respiratory Exam Respiratory: Present decreased breath sounds, crackles, normal respiratory effort, able to speak in complete sentences and symmetric chest movement *Routine Cardiovascular Exam Cardiovascular: Present RRR, Normal S1 and Normal S2 *Routine Abdominal Exam Abdominal: Present soft and normoactive bowel sounds *Routine Rectal Exam Rectal:: deferred *Routine Genitalia Exam Genitalia:: deferred *Routine Extremities Exam Extremities: Present edema, full ROM, pulses intact and normal capillary refill Routine Back/Spine/Pelvis Exam Back/Spine: Present full ROM *Routine Skin Exam Skin: Present dry and warm *Routine Neurological Exam Neurological: Present alert, oriented X3, CN II-XII intact and normal speech Routine Psychiatric Exam Psychiatric: Present normal affect, normal thought process, cooperative, good insight and good judgment H&P: Result Impressions This is a 54-year-old male who is known to our service line and has a severe systolic dysfunction congestive heart failure, coronary artery disease, and was recommended for LifeVest placement/defibrillator. Patient has been unable to follow-up with cardiology EKG is unrevealing for STEMI. Troponin was consistent with prior values on previous admission. Patient's chest pain had resolved. 2D echo on prior admission shows an EF of 20% Assessment and Plan *Assessment and plan (1) Chest pain: Status: Acute Qualifiers: Chest pain type: unspecified Qualified Code(s): R07.9 - Chest pain, unspecified Category: Medical Code(s): R07.9 - Chest pain, unspecified (2) Lingular pneumonia: Status: Acute Category: Medical Code(s): J18.9 - Pneumonia, unspecified organism (3) Acute exacerbation of CHF (congestive heart failure): Status: Acute Qualifiers: Heart failure type: systolic Qualified Code(s): I50.23 - Acute on chronic systolic (congestive) heart failure Category: Medical Code(s): I50.9 - Heart failure, unspecified (4) Pleural effusion, bilateral: Status: Acute Category: Medical Code(s): J90 - Pleural effusion, not elsewhere classified (5) CKD stage 3a, GFR 45-59 ml/min: Status: Acute Category: Medical Code(s): N18.31 - Chronic kidney disease, stage 3a (6) CAD (coronary artery disease): Status: Acute Qualifiers: Coronary Disease-Associated Artery/Lesion type: [place] artery [place] vs . transplanted heart: [place] heart Associated angina: with unspecified form of angina Qualified Code(s): I25.119 - Atherosclerotic heart disease of [place] coronary artery with unspecified angina pectoris Category: Medical Code(s): I25.10 - Atherosclerotic heart disease of [place] coronary artery without angina pectoris (7) Acute hypoxic respiratory failure: Status: Acute Category: Medical Code(s): J96.01 - Acute respiratory failure with hypoxia Plan Assessment: Chest pain/possible angina -Patient's last 2D echo which showed an EF of 20% -Patient will benefit from LifeVest -Will continue DAPT therapy -Will continue Eliquis -Will consult cardiology Acute hypoxic respiratory failure -Nasal cannula to maintain oxygen saturation greater than 94% Pneumonia -Azithromycin 250 mg p.o. daily -1 g Rocephin IV daily -Xopenex 1.25 3 times daily nebulized treatment -Will obtain procalcitonin Acute on chronic exacerbation of systolic dysfunction heart failure: HFrEF -Will give 40 mg of Lasix IV twice daily -Will diurese patient gently -Monitor patient intake and output Bilateral pleural effusions -Effusions are small -Will continue use diuretics Chronic kidney disease -Patient is at baseline creatinine will monitor Coronary artery disease -Will continue dual antiplatelet therapy Plan: Admit patient to the MedSur unit on telemetry Activity as tolerated SCDs to bilateral lower extreme Will continue Eliquis Vital signs every 4 hours Cardiac diet CBC/BMP daily Will trend troponins every 6 hours Saline lock 200 mg of Tessalon Perles 3 times daily as needed cough 5 mg [place] p.o. every 4 hours PMR pain 2 mg morphine IV push every 4 hours as needed severe pain 4 mg Zofran IV push to 8 hours. Nausea from Blood cultures x 2 Full code I will discuss this case with attending physician Dr. Parikh and I look forward to more
[2024-05-12] VITALS (36 sets, daily range): BP systolic 77–105; BP diastolic 59–79; PULSE 69–130; RESP 12–27; TEMP 36.3–36.6; O2SAT 94–100; BMI 26.0; BMI 25.9
--- NOTE | 2024-05-12 00:05 | PC.NURSE ---
Patient arrived to floor via wheelchair from ED at 23:57.
[2024-05-12 00:54] LABS: Troponin I 3.55 ng/ml (0.00-0.034)
--- NOTE | 2024-05-12 00:58 | ECG_ITS ---
APPROVED REPORT Exam: Resting ECG HR:111 bpm ECG Measurements Heart Rate 111 AXES WV 176 P 74 QRSd 94 QRS 220 QT 365 T 70 QTc 430 Conclusion SINUS TACHYCARDIA POSSIBLE RIGHT VENTRICULAR HYPERTROPHY [SOME/ALL OF: PROMINENT R IN V1, LATE TRANSITION, RAD, BOB, SSS] NONSPECIFIC T-WAVE ABNORMALITY ABNORMAL ECG UNCONFIRMED REPORT Electronically signed by : Kayden Moreno MD 05/13/2024 12:55:59
--- NOTE | 2024-05-12 00:58 | PC.NURSE ---
Lab reported critical troponin of 3.55, MARY Peña notified at this time. new order for EKG
--- NOTE | 2024-05-12 01:10 | PC.NURSE ---
0110: Pt manual BP 70/30 at this time, MARY ugarte aware. Orders to transfer pt to ICU.
--- NOTE | 2024-05-12 01:14 | PC.NURSE ---
Pt transfer to ICU from [facility] at this time, accompanied by charge nurse and tech.
--- NOTE | 2024-05-12 01:14 | EXP.EVENT.NO ---
Serial troponin increased from 0.08 to 3.55. Obtain stat EKG and there was no evidence of STEMI. Spoke with proposal engineer on-call concerning patient's case recommended starting heparin drip and initiating patient's home medications. Voices patient will be potentially cath in the a.m. While on the phone with cardiology, received call from nursing staff send patient's blood pressure had increased to the 70s. Will transition patient to the intensive care unit for Levophed drip. Patient does have some hypervolemia. Afraid additional fluid volume will cause more harm
[2024-05-12] MEDS: HYDROCORTISONE SOD SUCCINATE 100MG VIAL 100 MG IV (01:27)
[2024-05-12] MEDS: ASPIRIN 325MG TABLET 325 MG PO (01:27)
--- NOTE | 2024-05-12 01:30 | PC.NURSE ---
Pt arrived to ICU via bed @1:2
--- NOTE | 2024-05-12 01:31 | PC.NURSE ---
Pt arrived to ICU unit via bed @01:25
[2024-05-12] MEDS: ALBUMIN HUMAN 12.5 GM/50 ML BAG IV (01:36)
[2024-05-12 01:47] LABS: POC Glucose,Bedside 130 (70-110)
[2024-05-12] MEDS: HYDROCODONE/APAP 5/325 MG TABLET 1 TAB PO (02:12)
[2024-05-12] MEDS: HEPARIN SODIUM 5,000 UNIT/ML VIAL 4500 UNIT IV (02:13)
[2024-05-12 02:28] LABS: PTT Heparin (inpatient only) 29.4 Seconds (50-75)
[2024-05-12] MEDS: HEPARIN SODIUM,PORCINE/D5W 500 ML 18 UNIT IV (02:40)
--- NOTE | 2024-05-12 04:56 | PC.NURSE ---
bladder scanned pt due to pt not having any output. pt has 570 in his bladder. pt encouraged to use urinal at this time
--- NOTE | 2024-05-12 05:37 | PC.NURSE ---
notified pt unable to urinate after encouragment from staff. states to in and out cath pt. When notifying pt of order to cath, pt states he will not agree to it unless catheter is able to stay in. notified, states to anchor ray at this time.
[2024-05-12] MEDS: LEVALBUTEROL 1.25MG/3ML NEB 1.25 MG IH ×3 (06:40→20:55)
--- NOTE | 2024-05-12 06:50 | PC.NURSE ---
pt alert and oriented, pt was unable to urinate after receiving bumex and other fluids, pt tried to go on his own was unsuccessful, ray was placed due to pt not wanting in and out cath. pt has 4t pitting edema in bilateral lower extremites. lung sounds are diminshed bilaterally in bases. Heparin drip is going at 900 units an hour. pt to have cardiac cath this am. no family at bedside. pt on 1 lpm via nasal cannula. it was applied due to pt being apenic while sleeping. levophed has remained on hold, bp map has remained above 65.
[2024-05-12 07:48] LABS: Basophils % 0.5 % (0.1-2.0); Eosinophils % 0.5 % (0.1-12.0); Hematocrit 34.3 % (42.0-52.0); Hemoglobin 11.4 g/dL (14.1-18.0); Lymphocytes # 1.1 K/mm3 (0.7-4.5); Lymphocytes % 13.6 % (10-50); Mean Corpuscular HGB Conc 33.2 g/dL (31.8-35.4); Mean Corpuscular Hemoglobin 29.2 pg (27.0-31.2); Mean Corpuscular Volume 87.9 fl (80-94); Mean Platelet Volume 9.8 fl (7.4-10.4); Monocytes # 0.3 K/mm3 (0.1-1.0); Monocytes % 3.6 % (1.7-9.3); Neutrophils # 6.5 K/mm3 (1.8-7.8); Neutrophils % 81.4 % (37.0-80.0); Platelet Count 378 K/mm3 (142-424); Red Cell Distribution Width 18.9 % (11.5-17.5)
[2024-05-12 07:59] LABS: Chloride 99 mmol/L (98-107); Potassium 4.1 mmoL/L (3.5-5.1); Sodium 134 mmol/L (136-145)
[2024-05-12 08:02] LABS: Anion Gap 15.1 mEq/L (5-15); Blood Urea Nitrogen 21 mg/dl (9-20); Calcium 8.5 mg/dl (8.4-10.2); Carbon Dioxide 24 mmol/L (22.0-30.0); Creatinine Clearance Estimated 62 mL/min (50-200); Estimated Glomerular Filt Rate 49 ml/min (>60); GFR (African American) 59 ML/MIN (>60); Glucose 141 mg/dl (74-100)
[2024-05-12 08:23] LABS: PTT Heparin (inpatient only) 59.3 Seconds (50-75)
[2024-05-12 09:07] LABS: Procalcitonin 0.083 ng/mL (0.0-2.0)
[2024-05-12] MEDS: ASPIRIN EC 81MG TABLET 81 MG PO (09:56)
[2024-05-12] MEDS: CLOPIDOGREL 75MG TAB 75 MG PO (09:57)
--- NOTE | 2024-05-12 10:21 | PC.NURSE ---
All care and documentation completed by Arelis ROBLEDO was completed under the direct supervision of Trevin Shipman RN
--- NOTE | 2024-05-12 11:59 | HMH.PHAINT1 ---
Pharmacy Intervention Comments: MEDICATION RECONCILIATION COMPLETE USING LIST FROM RECENT MD OFFICE VISIT, RECENT HOSPITAL DISCHARGE NOTE, AND EXTERNAL PHARMACY FILL HISTORY.
[2024-05-12] MEDS: ENOXAPARIN 80MG/0.8ML SYRINGE 80 MG SUBCUT ×2 (12:27→23:00)
[2024-05-12] MEDS: BUMETANIDE 1MG/4ML VIAL 1 MG IV ×2 (12:29→16:16)
--- NOTE | 2024-05-12 12:42 | PC.NURSE ---
verbal order received by Trevin Shipman to stop heparin and lovenox started. Drip stopped at this time
[2024-05-12] MEDS: METOPROLOL SUCCINATE XL 25MG TABLET 25 MG PO (16:15)
--- NOTE | 2024-05-12 17:44 | PC.NURSE ---
pt has appeared to have a good day today. pt has not endorsed any pain or chest pain when asked throughout the shift. pt is a/o x 4. pt bp was soft at the start of the shift but has remained stable thus far. nad noted. pt sitting on the side of the bed, ray is draining clear yellow urine. no open wounds noted on pt skin.
[2024-05-12 18:32] LABS: Troponin I 3.56 ng/ml (0.00-0.034)
[2024-05-12] MEDS: CEFTRIAXONE SODIUM 1 GM in 0.9 % SODIUM CHLORIDE 50 ML IV (20:05)
[2024-05-12] MEDS: TAMSULOSIN 0.4MG CAPSULE 0.4 MG PO (20:06)
[2024-05-12] MEDS: ATORVASTATIN 40MG TABLET 80 MG PO (20:06)
[2024-05-12] MEDS: AZITHROMYCIN 250MG TABLET 250 MG PO (20:08)
--- NOTE | 2024-05-12 21:56 | EXP.DC.SUM ---
General Admission date:: 05/11/24 HPI HPI HPI: This is a 54-year-old male who is well-known to our service and has a past medical history significant for severe left ventricular systolic dysfunction, transaminitis, acute kidney injury, CKD, left ventricular mural thrombosis, cardiogenic shock, pleural effusion, vitamin B12 deficiency, allergic rhinitis, BPH, hyperlipidemia, insomnia, coronary artery disease, and tear of the right Achilles tendon who presents with an acute onset of midsternal chest pain, that was without any radiation, without any diaphoresis, had a duration of approximately 1 hour, and occurred while at rest. Due to patient's symptoms, he was transition to [facility] via EMS for further evaluation. EMS reports that patient was hypoxic with room air sats in the 80s. While in the emergency room, patient CT scan of the head showed a right pleural effusion and lingular pneumonia. Due to these findings, patient has been admitted for further management. During my evaluation of the patient, patient states that he has been having his chest pain 1 hour prior to arrival. He said his midsternal and is now improved. Is worth mentioning that patient was recently admitted to the facility for he was diagnosed with decompensated heart failure and status post coronary artery intervention with 5 stents. Post stent placement patient was placed on DAPT therapy and there was a recommendation for LifeVest. Unfortunately, due to patient's insurance he has not obtain LifeVest. Moreover, patient states he is low on his medications. He also reports having a nonproductive cough. Currently, patient is denying any chest pain, lightheadedness, dizziness, fever, chills, PND, orthopnea, nausea, vomiting, or diarrhea. Additional pertinent vitals obtained include a red blood cell count of 4.20, hemoglobin 12.4, hematocrit 37.4, platelet count of 449, D-dimer 2.37, chloride of 96, creatinine 1.50, GFR 49, blood glucose 138, alkaline phosphate 175, troponin 0.80, BNP of 7660, and TSH of 4.71. Hospital Course Hospital Course Hospital Course: Manuel Jo is a 53-year-old who was recently admitted for acute CHF, found to have CAD status post stenting. Was in severe heart failure with anasarca and significant volume overload, diuresed well and discharged on GDMT and DAPT. Patient unfortunately returns to the hospital with left-sided chest pain and admitted for NSTEMI type II. #NSTEMI type II #CAD s/p 5 stents ? Troponins peaked at 4.6, downtrending. No chest pains during admission, comfortable. Likely in the setting of sinus tachycardia, and HFrEF exacerbation after running out of meds about a week ago. ? At this time, unlikely to be stent occlusion given downtrending troponin. ? Spoke with Dr. Mcgill, unlikely be stent occlusion given downtrending troponin. Advised to treat HFrEF exacerbation and start metoprolol. ? Continue therapeutic Lovenox for today, transition to Eliquis tomorrow if continues to be asymptomatic. ? Continue aspirin, Plavix, statin. ? Continue metoprolol succinate 25 mg. #HFrEF exacerbation ? BNP in the 8000, lower extremity pitting edema. ? IV Bumex 1 mg twice daily. Follow-up urine output. Consider increasing as needed. ? Hold rest of GDMT at this time given soft pressures. #LV thrombus ? Continue with therapeutic Lovenox for today, transition to Eliquis tomorrow if continues to be asymptomatic from chest pain standpoint. Full code DVT prophylaxis: Lovenox as above Exam Data for Last 24 hours Vital signs and Labs for Last 24 Hours: Temp Pulse Resp BP Pulse Ox O2 Del Method O2 Flow Rate 97.8 F 97 H 23 104/75 L 100 Room Air 1 05/12/24 20:00 05/12/24 20:00 05/12/24 20:00 05/12/24 20:00 05/12/24 20:00 05/12/24 20:00 05/12/24 11:00 Laboratory Results - last 24 hr 05/11/24 22:15: SARS-CoV-2 (PCR) Not detected, Influenza A Untype (PCR) Not detected, Influenza Type B (PCR) Not detected 05/12/24 00:15: Troponin I 3.55 H 05/12/24 01:30: APTT 29.4 L 05/12/24 01:39: POC Glucose 130 H 05/12/24 07:43: WBC 8.0, RBC 3.90 L, Hgb 11.4 L, Hct 34.3 L, MCV 87.9, MCH 29.2, MCHC 33.2, RDW 18.9 H, Plt Count 378, MPV 9.8, Neut % (Auto) 81.4 H, Lymph % (Auto) 13.6, [place] % (Auto) 3.6, Eos % (Auto) 0.5, Baso % (Auto) 0.5, Neut # (Auto) 6.5, Lymph # (Auto) 1.1, [place] # (Auto) 0.3, Eos # (Auto) 0.0, Baso # (Auto) 0.0, APTT 59.3, Sodium 134 L, Potassium 4.1, Chloride 99, Carbon Dioxide 24, Anion Gap 15.1 H, BUN 21 H, Creatinine 1.50 H, Estimated Creat Clear 62, Estimated GFR 49 L, Est GFR ( Amer) 59, Glucose 141 H, Calcium 8.5, Procalcitonin 0.083 05/12/24 09:52: Troponin I 4.60 H 05/12/24 17:10: Troponin I 3.56 H I & O for Last 24 hours: Intake & Output 05/09/24 05/10/24 05/11/24 05/12/24 23:59 23:59 23:59 23:59 Intake Total 687 / 687 Output Total 1859 / 1859 Balance -1172 / -1172 Weight 72.575 kg 77.7 kg Results Data Completed and Pending Labs on day of discharge: Labs from last 24 hours 05/12/24 05/12/24 05/12/24 17:10 09:52 07:43 WBC 8.0 RBC 3.90 L Hgb 11.4 L Hct 34.3 L MCV 87.9 MCH 29.2 MCHC 33.2 RDW 18.9 H Plt Count 378 MPV 9.8 Neut % (Auto) 81.4 H Lymph % (Auto) 13.6 [place] % (Auto) 3.6 Eos % (Auto) 0.5 Baso % (Auto) 0.5 Neut # (Auto) 6.5 Lymph # (Auto) 1.1 [place] # (Auto) 0.3 Eos # (Auto) 0.0 Baso # (Auto) 0.0 APTT 59.3 Sodium 134 L Potassium 4.1 Chloride 99 Carbon Dioxide 24 Anion Gap 15.1 H BUN 21 H Creatinine 1.50 H Estimated Creat Clear 62 Estimated GFR 49 L Est GFR ( Amer) 59 Glucose 141 H POC Glucose Calcium 8.5 Troponin I 3.56 H 4.60 H Procalcitonin 0.083 SARS-CoV-2 (PCR) Influenza A Untype (PCR) Influenza Type B (PCR) 05/12/24 05/12/24 05/12/24 01:39 01:30 00:15 WBC RBC Hgb Hct MCV MCH MCHC RDW Plt Count MPV Neut % (Auto) Lymph % (Auto) [place] % (Auto) Eos % (Auto) Baso % (Auto) Neut # (Auto) Lymph # (Auto) [place] # (Auto) Eos # (Auto) Baso # (Auto) APTT 29.4 L Sodium Potassium Chloride Carbon Dioxide Anion Gap BUN Creatinine Estimated Creat Clear Estimated GFR Est GFR ( Amer) Glucose POC Glucose 130 H Calcium Troponin I 3.55 H Procalcitonin SARS-CoV-2 (PCR) Influenza A Untype (PCR) Influenza Type B (PCR) 05/11/24 22:15 WBC RBC Hgb Hct MCV MCH MCHC RDW Plt Count MPV Neut % (Auto) Lymph % (Auto) [place] % (Auto) Eos % (Auto) Baso % (Auto) Neut # (Auto) Lymph # (Auto) [place] # (Auto) Eos # (Auto) Baso # (Auto) APTT Sodium Potassium Chloride Carbon Dioxide Anion Gap BUN Creatinine Estimated Creat Clear Estimated GFR Est GFR ( Amer) Glucose POC Glucose Calcium Troponin I Procalcitonin SARS-CoV-2 (PCR) Not detected Influenza A Untype (PCR) Not detected Influenza Type B (PCR) Not detected DS: Diagnosis Discharge Diagnosis (1) Chest pain: Status: Acute Code(s): R07.9 - Chest pain, unspecified Qualifiers: Chest pain type: unspecified Qualified Code(s): R07.9 - Chest pain, unspecified (2) Lingular pneumonia: Status: Acute Code(s): J18.9 - Pneumonia, unspecified organism (3) Acute exacerbation of CHF (congestive heart failure): Status: Acute Code(s): I50.9 - Heart failure, unspecified Qualifiers: Heart failure type: systolic Qualified Code(s): I50.23 - Acute on chronic systolic (congestive) heart failure (4) Pleural effusion, bilateral: Status: Acute Code(s): J90 - Pleural effusion, not elsewhere classified (5) CKD stage 3a, GFR 45-59 ml/min: Status: Acute Code(s): N18.31 - Chronic kidney disease, stage 3a (6) CAD (coronary artery disease): Status: Acute Code(s): I25.10 - Atherosclerotic heart disease of [place] coronary artery without angina pectoris Qualifiers: Coronary Disease-Associated Artery/Lesion type: [place] artery [place] vs. transplanted heart: [place] heart Associated angina: with unspecified form of angina Qualified Code(s): I25.119 - Atherosclerotic heart disease of [place] coronary artery with unspecified angina pectoris (7) Acute hypoxic respiratory failure: Status: Acute Code(s): J96.01 - Acute respiratory failure with hypoxia Meds Home Medications and Allergies Home Medications ?Medication ?Instructions ?Recorded ?Confirmed ?Type apixaban 5 mg tablet (Eliquis) 5 mg PO BID 30 days #60 tabs 03/29/24 05/12/24 Rx aspirin 81 mg tablet,delayed 81 mg PO DAILY 30 days #30 tabs 04/05/24 05/12/24 Rx release atorvastatin 80 mg tablet 80 mg PO HS #30 tabs 04/05/24 05/12/24 Rx bumetanide 1 mg tablet 2 mg (2 x 1 mg) PO DAILY #60 tabs 04/05/24 05/12/24 Rx clopidogrel 75 mg tablet 75 mg PO DAILY 30 days #30 tabs 04/05/24 05/12/24 Rx potassium chloride 20 mEq 20 meq PO BID 30 days #60 tabs 04/05/24 05/12/24 Rx tablet,extended release(part/cryst) (Klor-Con M) sacubitril 24 mg-valsartan 26 mg 1 tab PO BID 30 days #60 tabs 04/05/24 05/12/24 Rx tablet tamsulosin 0.4 mg capsule 0.4 mg PO HS 30 days #30 caps 04/05/24 05/12/24 Rx New Prescriptions to Start Prescriptions: Allergies Allergy/AdvReac Type Severity Reaction Status Date / Time diclofenac (DICLOFENAC) Allergy Unknown Verified 08/12/21 13:08 Penicillins (PENICILLINS) Allergy Unknown Verified 08/12/21 13:08 propoxyphene (PROPOXYPHENE) Allergy Unknown Verified 08/12/21 13:08 tramadol (TRAMADOL) Allergy Unknown Verified 08/12/21 13:08 Discharge Plan Disposition Condition: Fair Follow up Plan Prescriptions/Medication Reconciliation: No Action Eliquis 5 mg Tablet 5 mg PO BID 30 Days Qty: 60 0RF atorvastatin 80 mg tablet 80 mg PO HS Qty: 30 0RF potassium chloride [Klor-Con M20] 20 mEq Tablet,Er Particles/Crystals 20 meq PO BID 30 Days Qty: 60 0RF tamsulosin 0.4 mg Capsule 0.4 mg PO HS 30 Days Qty: 30 0RF sacubitril-valsartan 24-26 mg Tablet 1 tab PO BID 30 Days Qty: 60 0RF bumetanide 1 mg tablet 2 mg PO DAILY Qty: 60 0RF clopidogrel 75 mg Tablet 75 mg PO DAILY 30 Days Qty: 30 0RF aspirin 81 mg Tablet,Delayed Release (Dr/Ec) 81 mg PO DAILY 30 Days Qty: 30 0RF Patient Discharge Instructions Patient Instructions: DI for Chest Pain Print Language: Sinhala Providers Primary Care Provider: Provider,Referral Admit Provider: John Parikh Attending Provider: John Parikh
--- NOTE | 2024-05-12 22:35 | P.PN_ITS ---
Subjective *Date: 05/12/24 *Time: 13:40 Interval history: Patient feels better today, no chest pains. Will continue diuresis with Bumex. Unlikely to be stent thrombosis as troponin is downtrending and no chest pain. Exam Data for Last 24 hours Vital signs and Labs for Last 24 Hours: Temp Pulse Resp BP Pulse Ox O2 Del Method O2 Flow Rate 97.8 F 98 H 27 H 85/63 L 99 Room Air 1 05/12/24 20:00 05/12/24 22:00 05/12/24 22:00 05/12/24 22:00 05/12/24 22:00 05/12/24 22:24 05/12/24 11:00 Laboratory Results - last 24 hr 05/11/24 22:15: SARS-CoV-2 (PCR) Not detected, Influenza A Untype (PCR) Not detected, Influenza Type B (PCR) Not detected 05/12/24 00:15: Troponin I 3.55 H 05/12/24 01:30: APTT 29.4 L 05/12/24 01:39: POC Glucose 130 H 05/12/24 07:43: WBC 8.0, RBC 3.90 L, Hgb 11.4 L, Hct 34.3 L, MCV 87.9, MCH 29.2, MCHC 33.2, RDW 18.9 H, Plt Count 378, MPV 9.8, Neut % (Auto) 81.4 H, Lymph % (Auto) 13.6, [place] % (Auto) 3.6, Eos % (Auto) 0.5, Baso % (Auto) 0.5, Neut # (Auto) 6.5, Lymph # (Auto) 1.1, [place] # (Auto) 0.3, Eos # (Auto) 0.0, Baso # (Auto) 0.0, APTT 59.3, Sodium 134 L, Potassium 4.1, Chloride 99, Carbon Dioxide 24, Anion Gap 15.1 H, BUN 21 H, Creatinine 1.50 H, Estimated Creat Clear 62, Estimated GFR 49 L, Est GFR ( Amer) 59, Glucose 141 H, Calcium 8.5, Procalcitonin 0.083 05/12/24 09:52: Troponin I 4.60 H 05/12/24 17:10: Troponin I 3.56 H I & O for Last 24 hours: Intake & Output 05/09/24 05/10/24 05/11/24 05/12/24 23:59 23:59 23:59 23:59 Intake Total 687 / 687 Output Total 1859 / 1859 Balance -1172 / -1172 Weight 72.575 kg 77.7 kg Constitutional Constitutional: no acute distress *Routine HEENT Exam Head: Present normocephalic Eye: Present EOMI and PERRL ENT: Present mucous membranes moist *Routine Neck Exam Neck: Present supple; Absent lymphadenopathy *Routine Respiratory Exam Respiratory: Present CTA bilaterally *Routine Cardiovascular Exam Cardiovascular: Present RRR *Routine Abdominal Exam Abdominal: Present soft and normoactive bowel sounds; Absent tenderness *Routine Extremities Exam Extremities: Present edema; Absent cyanosis or clubbing Comments: Lower extremity pitting edema 2+. *Routine Skin Exam Skin: Present warm; Absent rash *Routine Neurological Exam Neurological: Present alert and oriented X3 Assessment and Plan *Assessment and plan (1) Acute hypoxic respiratory failure: Status: Acute Category: Medical Code(s): J96.01 - Acute respiratory failure with hypoxia (2) CAD (coronary artery disease): Status: Acute Qualifiers: Coronary Disease-Associated Artery/Lesion type: [place] artery [place] vs. transplanted heart: [place] heart Associated angina: with unspecified form of angina Qualified Code(s): I25.119 - Atherosclerotic heart disease of [place] coronary artery with unspecified angina pectoris Category: Medical Code(s): I25.10 - Atherosclerotic heart disease of [place] coronary artery without angina pectoris (3) Acute exacerbation of CHF (congestive heart failure): Status: Acute Qualifiers: Heart failure type: systolic Qualified Code(s): I50.23 - Acute on chronic systolic (congestive) heart failure Category: Medical Code(s): I50.9 - Heart failure, unspecified (4) Lingular pneumonia: Status: Acute Category: Medical Code(s): J18.9 - Pneumonia, unspecified organism Plan Manuel Jo is a 53-year-old who was recently admitted for acute CHF, found to have CAD status post stenting. Was in severe heart failure with anasarca and significant volume overload, diuresed well and discharged on GDMT and DAPT. Patient unfortunately returns to the hospital with left-sided chest pain and admitted for NSTEMI type II. Per patient, he has ran out of medications for about a week. #NSTEMI type II #CAD s/p 5 stents ? Troponins peaked at 4.6, downtrending. No chest pains during admission, comfortable. Likely in the setting of sinus tachycardia, and HFrEF exacerbation after running out of meds about a week ago. ? At this time, unlikely to be stent thrombosis given downtrending troponin, no chest pains, unremarkable EKG. ? Spoke with Dr. Mcgill, agreed unlikely to be stent occlusion given downtrending troponin. Advised to treat HFrEF exacerbation and start metoprolol. ? Continue therapeutic Lovenox for today, transition to Eliquis tomorrow if continues to be asymptomatic. ? Continue aspirin, Plavix, statin. ? Continue metoprolol succinate 25 mg. #HFrEF exacerbation ? BNP in the 8000, lower extremity pitting edema. ? IV Bumex 1 mg twice daily. Follow-up urine output. Consider increasing as needed. ? Hold rest of GDMT at this time given soft pressures. #LV thrombus ? Continue with therapeutic Lovenox for today, transition to Eliquis tomorrow if continues to be asymptomatic from chest pain standpoint. #Left mid lung infiltrate ? Ceftriaxone, azithromycin day 1. Full code DVT prophylaxis: Lovenox as above
[2024-05-13] VITALS (13 sets, daily range): BP systolic 89–106; BP diastolic 65–82; PULSE 90–101; RESP 16–31; TEMP 36.4–36.9; O2SAT 94–98; BMI 25.9
[2024-05-13] MEDS: HYDROCODONE/APAP 5/325 MG TABLET 1 TAB PO (02:51)
[2024-05-13] MEDS: LEVALBUTEROL 1.25MG/3ML NEB 1.25 MG IH (06:10)
[2024-05-13] MEDS: ASPIRIN EC 81MG TABLET 81 MG PO (10:22)
[2024-05-13] MEDS: CLOPIDOGREL 75MG TAB 75 MG PO (10:22)
[2024-05-13] MEDS: BUMETANIDE 1MG/4ML VIAL 1 MG IV (10:22)
[2024-05-13] MEDS: METOPROLOL SUCCINATE XL 25MG TABLET 25 MG PO (10:23)
[2024-05-13] MEDS: APIXABAN 5MG TABLET 5 MG PO (10:23)
--- NOTE | 2024-05-13 11:10 | EXP.DC.SUM ---
General Admission date:: 05/11/24 Hospital Course Hospital Course Hospital Course: Manuel Jo is a 53-year-old who was recently admitted for acute CHF, found to have CAD status post stenting. Was in severe heart failure with anasarca and significant volume overload, diuresed well and discharged on GDMT and DAPT. Patient unfortunately returns to the hospital with left-sided chest pain and admitted for NSTEMI type II. Per patient, he has ran out of medications for about a week. #NSTEMI type II #CAD s/p 5 stents ? Troponins peaked at 4.6, down trended. No chest pains during admission, comfortable. Likely in the setting of sinus tachycardia, and HFrEF exacerbation after running out of meds about a week ago. ? At this time, unlikely to be stent thrombosis given downtrending troponin, no chest pains, unremarkable EKG. ? Spoke with Dr. Mcgill, agreed unlikely to be stent occlusion given downtrending troponin. Advised to treat HFrEF exacerbation and start metoprolol. ? Medically stable for discharge. Discharged with aspirin 81 mg, Plavix 75 mg, atorvastatin 80 mg, metoprolol succinate 25 mg. ? Advised to follow-up with cardiology within 1 week. #HFrEF exacerbation ? BNP in the 8000, lower extremity pitting edema. ? Improved with IV Bumex diuresis. Discharged with Bumex 2 mg daily. Continue metoprolol succinate 25 mg. ? Hold rest of GDMT at this time given soft pressure. Will follow-up with cardiology within 1 week. #LV thrombus ? Continue Eliquis 5 mg twice daily. #Left mid lung infiltrate ? Discharged with levofloxacin for 3 more days. #BPH ? Continue home tamsulosin. Total time spent on discharge: 32 minutes on chart review, counseling, documentation, and direct care with patient. Exam Data for Last 24 hours Vital signs and Labs for Last 24 Hours: Temp Pulse Resp BP Pulse Ox O2 Del Method O2 Flow Rate 97.6 F 90 22 102/73 L 95 Nasal Cannula 2 05/13/24 08:00 05/13/24 08:10 05/13/24 08:00 05/13/24 08:00 05/13/24 08:10 05/13/24 09:42 05/13/24 09:42 Laboratory Results - last 24 hr 05/12/24 17:10: Troponin I 3.56 H I & O for Last 24 hours: Intake & Output 05/10/24 05/11/24 05/12/24 05/13/24 23:59 23:59 23:59 23:59 Intake Total 787 / 1027 580 / 580 Output Total 1859 / 2159 635 / 635 Balance -1072 / -1132 -55 / -55 Weight 72.575 kg 77.7 kg 77.5 kg Microbiology Reports for the Last 24 Hours: Microbiology 05/11/24 23:29 Blood Blood Culture - Preliminary NO GROWTH AFTER 24 HOURS 05/11/24 23:20 Blood Blood Culture - Preliminary NO GROWTH AFTER 24 HOURS Constitutional Constitutional: no acute distress *Routine HEENT Exam Head: Present normocephalic Eye: Present EOMI and PERRL ENT: Present mucous membranes moist *Routine Neck Exam Neck: Present supple; Absent lymphadenopathy *Routine Respiratory Exam Respiratory: Present CTA bilaterally *Routine Cardiovascular Exam Cardiovascular: Present RRR *Routine Abdominal Exam Abdominal: Present soft and normoactive bowel sounds; Absent tenderness *Routine Extremities Exam Extremities: Present edema; Absent cyanosis or clubbing Comments: Lower extremity pitting edema 1+. *Routine Skin Exam Skin: Present warm; Absent rash *Routine Neurological Exam Neurological: Present alert and oriented X3 Results Data Completed and Pending Labs on day of discharge: Labs from last 24 hours 05/12/24 17:10 Troponin I 3.56 H Preliminary micro results at discharge 05/11/24 23:29 Blood Culture - Preliminary Blood NO GROWTH AFTER 24 HOURS 05/11/24 23:20 Blood Culture - Preliminary Blood NO GROWTH AFTER 24 HOURS DS: Diagnosis Discharge Diagnosis (1) Chest pain: Status: Acute Code(s): R07.9 - Chest pain, unspecified Qualifiers: Chest pain type: unspecified Qualified Code(s): R07.9 - Chest pain, unspecified (2) Lingular pneumonia: Status: Acute Code(s): J18.9 - Pneumonia, unspecified organism (3) Acute exacerbation of CHF (congestive heart failure): Status: Acute Code(s): I50.9 - Heart failure, unspecified Qualifiers: Heart failure type: systolic Qualified Code(s): I50.23 - Acute on chronic systolic (congestive) heart failure (4) Pleural effusion, bilateral: Status: Acute Code(s): J90 - Pleural effusion, not elsewhere classified (5) CKD stage 3a, GFR 45-59 ml/min: Status: Acute Code(s): N18.31 - Chronic kidney disease, stage 3a (6) CAD (coronary artery disease): Status: Acute Code(s): I25.10 - Atherosclerotic heart disease of [place] coronary artery without angina pectoris Qualifiers: Associated angina: with unspecified form of angina Coronary Disease-Associated Artery/Lesion type: [place] artery [place] vs. transplanted heart: [place] heart Qualified Code(s): I25.119 - Atherosclerotic heart disease of [place] coronary artery with unspecified angina pectoris (7) Acute hypoxic respiratory failure: Status: Acute Code(s): J96.01 - Acute respiratory failure with hypoxia Meds Home Medications and Allergies Home Medications ?Medication ?Instructions ?Recorded ?Confirmed ?Type sacubitril 24 mg-valsartan 26 mg 1 tab PO BID 30 days #60 tabs 04/05/24 05/12/24 Rx tablet apixaban 5 mg tablet (Eliquis) 5 mg PO BID 30 days #60 tabs 05/13/24 Rx aspirin 81 mg tablet,delayed 81 mg PO DAILY 30 days #30 tabs 05/13/24 Rx release atorvastatin 80 mg tablet 80 mg PO HS #30 tabs 05/13/24 Rx bumetanide 1 mg tablet 2 mg (2 x 1 mg) PO DAILY #60 tabs 05/13/24 Rx clopidogrel 75 mg tablet 75 mg PO DAILY 30 days #30 tabs 05/13/24 Rx levofloxacin 750 mg tablet 750 mg PO DAILY 3 days #3 tabs 05/13/24 Rx metoprolol succinate 25 mg 25 mg PO DAILY 30 days #30 tabs 05/13/24 Rx tablet,extended release 24 hr potassium chloride 20 mEq 20 meq PO BID 30 days #60 tabs 05/13/24 Rx tablet,extended release(part/cryst) (Klor-Con M) tamsulosin 0.4 mg capsule 0.4 mg PO HS 30 days #30 caps 05/13/24 Rx New Prescriptions to Start Prescriptions: apixaban [Eliquis] J[place], aspirin [place], atorvastatin [place], bumetanide [place], clopidogrel [place], levofloxacin [place], metoprolol succinate [place], potassium chloride [Klor-Con M20] [place], tamsulosin John Parikh Allergies Allergy/AdvReac Type Severity Reaction Status Date / Time diclofenac (DICLOFENAC) Allergy Unknown Verified 08/12/21 13:08 Penicillins (PENICILLINS) Allergy Unknown Verified 08/12/21 13:08 propoxyphene (PROPOXYPHENE) Allergy Unknown Verified 08/12/21 13:08 tramadol (TRAMADOL) Allergy Unknown Verified 08/12/21 13:08 Discharge Plan Disposition Patient Disposition: Home, Self-Care Condition: Fair Discharge Order Discharge Orders: Discharge Order (Routine); Ordered 05/13/24 Ordered By: John Parikh Follow up Plan Follow up with: Lux Casey PA [Physician Process Control Operator] - 05/14/24 (call office to make appointment) Prescriptions/Medication Reconciliation: New metoprolol succinate 25 mg Tablet Extended Release 24 Hr 25 mg PO DAILY 30 Days Qty: 30 0RF levofloxacin 750 mg tablet 750 mg PO DAILY 3 Days Qty: 3 0RF Continued atorvastatin 80 mg tablet 80 mg PO HS Qty: 30 0RF clopidogrel 75 mg Tablet 75 mg PO DAILY 30 Days Qty: 30 0RF aspirin 81 mg Tablet,Delayed Release (Dr/Ec) 81 mg PO DAILY 30 Days Qty: 30 0RF potassium chloride [Klor-Con M20] 20 mEq Tablet,Er Particles/Crystals 20 meq PO BID 30 Days Qty: 60 0RF tamsulosin 0.4 mg Capsule 0.4 mg PO HS 30 Days Qty: 30 0RF bumetanide 1 mg tablet 2 mg PO DAILY Qty: 60 0RF Eliquis 5 mg Tablet 5 mg PO BID 30 Days Qty: 60 0RF Held sacubitril-valsartan 24-26 mg Tablet 1 tab PO BID 30 Days Qty: 60 0RF Hold Instructions: Resume on 05/27/24. Hold this medication as your blood pressure is a little bit soft. Follow-up with cardiology to discuss restarting this medication. Problem Reconciliation Problems Reviewed?: Yes Patient Discharge Instructions Patient Instructions: DI for Chest Pain Print Language: Mongolian Providers Primary Care Provider: Provider,Referral Admit Provider: John Parikh Attending Provider: John Parikh
--- NOTE | 2024-05-13 14:10 | PC.NURSE ---
1330 pt able to void per urine, prior to dc
[2024-05-13 16:27] LABS: Cortisol,AM 9.3 ug/dL (6.2-19.4)
--- NOTE | 2024-05-15 10:24 | SW/DCPLANNER ---
Phoned patient x2. Could not leave a message. Patients mailbox is full. Rahel Harris
--- NOTE | 2024-05-17 11:44 | CARE MANAGER ---
Mr. Gonsales called to report that he is not able to fill his medications at [facility] due to Medicaid saying he has a primary. He reports that he does not have prescription coverage through anyone buy Medicaid. He was given 2 phone numbers to call for Medicaid support so that he can report that he has no other coverage.
== END 2024-05-13 14:00 | disposition home or self-care (01) | DRG 280 ==
LOC: ER 23:23 → 2ND 23:33 → ICU 05-12 05:36 → 2ND 05-12 15:34 → ICU 05-12 15:34
PROVIDERS: Nurse Practitioner Family; Admitting Provider Student in an Organized Health Care Education/Training Program; Emergency Provider Emergency Medicine; Visit Provider Student in an Organized Health Care Education/Training Program
DX: I50.23 Acute on chronic systolic (congestive) heart failure (principal); J18.8 Other pneumonia, unspecified organism; I21.A1 Myocardial infarction type 2; J96.01 Acute respiratory failure with hypoxia; I23.6 Thrombosis of atrium, auricular appendage, and ventricle as current complications following acute myocardial infarction; I25.10 Atherosclerotic heart disease of native coronary artery without angina pectoris; N40.0 Benign prostatic hyperplasia without lower urinary tract symptoms; F17.290 Nicotine dependence, other tobacco product, uncomplicated; R91.8 Other nonspecific abnormal finding of lung field; N18.31 Chronic kidney disease, stage 3a; E78.5 Hyperlipidemia, unspecified; Z95.5 Presence of coronary angioplasty implant and graft; Z79.899 Other long term (current) drug therapy; Z79.82 Long term (current) use of aspirin; Z79.02 Long term (current) use of antithrombotics/antiplatelets; Z79.01 Long term (current) use of anticoagulants
CPT/HCPCS: 36415; 71045; 71275; 80048; 80053; 82533; 82962; 83735; 83880; 84145; 84436; 84443; 84484; 85025; 85378; 85730; 87040; 87081; 87636; 93005; 94640; 99291; J0131; J0456; J0696; J1644; J1650; J1885; J1939; J2270; J2405; J7050; J7614; P9047; Q9967

== ENCOUNTER 2024-05-19 19:32 | Inpatient (IN) | payer MEDICARE, MEDICAID, SELFPAY ==
[2024-05-19] VITALS (13 sets, daily range): BP systolic 108–121; BP diastolic 81–93; PULSE 102–115; RESP 14–60; TEMP 36.4; O2SAT 92–100; BMI 24.3
--- NOTE | 2024-05-19 19:29 | ECG_ITS ---
APPROVED REPORT Exam: Resting ECG HR:106 bpm ECG Measurements Heart Rate 106 AXES [place] 148 P 50 QRSd 90 QRS 238 QT 379 T 69 QTc 441 Conclusion SINUS TACHYCARDIA POSSIBLE LEFT ATRIAL ENLARGEMENT [-0.1mV P-WAVE IN V1/V2] POSSIBLE RIGHT VENTRICULAR HYPERTROPHY [SOME/ALL OF: PROMINENT R IN V1, LATE TRANSITION, RAD, BOB, SSS] POSSIBLE ANTERIOR MYOCARDIAL INFARCTION , PROBABLY OLD [30 ms Q WAVE IN V3/V4, OR R < 0.2 mV IN V4] ABNORMAL ECG UNCONFIRMED REPORT Electronically signed by : Elmer Roberts, 05/20/2024 00:37:29
--- NOTE | 2024-05-19 19:48 | XR_ITS ---
PROCEDURE INFORMATION: Exam: XR Chest Exam date and time: 05/19/2024 7:57 PM Age: 54 years old Clinical indication: Shortness of breath; Additional info: SOB TECHNIQUE: Imaging protocol: Radiologic exam of the chest. Views: 1 view. COMPARISON: CT ANGIO CHEST PE PROTOCOL 05/11/2024 10:09 PM FINDINGS: Lungs: Rounded left lingula region masslike consolidation seen on prior examination is better circumscribed on the current examination Pleural spaces: Unremarkable. No pleural effusion. No pneumothorax. Heart/Mediastinum: Cardiomegaly Bones/joints: Unremarkable. Other findings: No definite effusions IMPRESSION: 1. Left lung lingular masslike consolidation is more prominent on the current exam. 2. Suspicious for persistent underlying mass. Advise follow-up at one-month interval to ensure complete resolution.
--- NOTE | 2024-05-19 19:52 | ED_ITS ---
Discharge Plan Disposition Patient Disposition: Admitted Condition: Fair Chief Complaint: Shortness of Breath/Dyspnea Clinical Impressions Clinical Impression: Acute exacerbation of CHF (congestive heart failure) Discharge ED Provider: Elmer Roberts Adult HPI General Chief complaint: Shortness of Breath/Dyspnea Stated complaint: Bilateral Lower Extremity Pain and Edema Time Seen by Provider: 05/19/24 19:48 Mode of Arrival: EMS Source of Information: Patient and EMS Limitations: No Limitations Description of Symptoms (Recalled from ER Triage Doc. by RN): C/o bilateral knee pain w/ cough. SOA @ HS since tuesday. Has not taken prescribed home medications due to insurance problems History of Present Illness HPI narrative: Patient is a 54-year-old male with a history of CAD s/p PCI, heart failure with reduced ejection fraction, hypertension, hyperlipidemia. He is presenting today due to concerns for shortness of breath. Per my review of the EMR, he was discharged 5 days ago after a heart failure exacerbation and was post be taking 2 mg of Bumex at home orally, but he reports he has not been taking them due to issues with his insurance. He reports that he has had worsening edema in the bilateral lower extremities up to his knees. He also reports worsening shortness of breath and significant orthopnea to the point where he has to sleep completely sitting straight upright. He denies any fevers, cough, chest pain, numbness weakness tingling. Denies any vomiting or diarrhea. Has been tolerating good oral intake. He reports that he cannot perform his activities of daily living given difficulty ambulating with shortness of breath. Is supposed to be on Bumex as well as 1 [place] per cardiology, but has not been doing either. Related Data Allergies Allergy/AdvReac Type Severity Reaction Status Date / Time diclofenac (DICLOFENAC) Allergy Unknown Verified 08/12/21 13:08 Penicillins (PENICILLINS) Allergy Unknown Verified 08/12/21 13:08 propoxyphene (PROPOXYPHENE) Allergy Unknown Verified 08/12/21 13:08 tramadol (TRAMADOL) Allergy Unknown Verified 08/12/21 13:08 [facility] Disclaimer: The information contained in this section may have been updated after the patient was seen, as this information can be updated by other users. Medical History Severe left ventricular systolic dysfunction (LVSD) Transaminitis RENAY (acute kidney injury) Anasarca LV (left ventricular) mural thrombus Acute hypoxemic respiratory failure Cardiogenic shock Non-STEMI (non-ST elevated myocardial infarction) Acute HFrEF (heart failure with reduced ejection fraction) Pneumonia Pleural effusion, bilateral Vitamin B12 deficiency Allergic rhinitis BPH (benign prostatic hyperplasia) Hyperlipidemia Insomnia Partial tear of right Achilles tendon Family History Other No significant family history Social History (Updated 05/19/24 @ 19:44 by Malissa Miller RN) Smoking Status: Never smoker alcohol intake: never substance use type: former substance user and heroin current occupational status: unemployed Travel in the last 8 weeks: None Have you lived/traveled outside [place] in past 30 days?: No Contact w/someone who lives/traveled outside [place] past 30 days?: No Exposure to someone with infectious disease in past 14 days?: No Do you have a fever (greater than 100.4 F or 38 C)?: No Have you tested positive for COVID-19: No Exposed to someone with COVID-19 in past 14 days?: No Do you have a sore throat?: No Do you have a cough?: No Do you have any weakness?: No Do you have any diarrhea?: No Are you experiencing any unusual bleeding?: No Do you have any muscle aches/pain?: No Do you have any abdominal pain?: No Are you experiencing loss of taste or smell?: No Other Medical History Have you received the Flu Vaccine for this season: No Have you received the Pneumonia Vaccine: No ROS Obtained: Yes All systems reviewed & no additional complaints except as documented Physical Exam General General appearance: alert and in no apparent distress Head Head exam: atraumatic and normocephalic Eye Eye exam: Present PERRL and EOMI ENT ENT exam: Present normal oropharynx Neck Neck exam: Present full ROM and trachea midline Chest Chest inspection: Present symmetric chest wall rise Respiratory Respiratory exam: Present other (Rhonchi in the bases and tachypnea no retractions); Absent stridor Cardiovascular Cardiovascular exam: Present regular rate and normal rhythm Abdominal Exam Abdominal exam: Present soft; Absent distention or tenderness Extremities Exam Extremities exam: Present full ROM and edema (Bilateral lower extremity edema 3+) Neurological Exam Neurological exam: Present alert and oriented X3 Psychiatric Psychiatric exam: Present normal mood Skin Skin exam: Present warm and dry Medical Decision Making Medical Records Screening: Per USPSTF and CDC recommendations, given the prevalence of disease in our region, it is our hospital?s policy to screen for HIV and viral Hepatitis for all patients aged 18 and over and those with ongoing risk factors. Matty Inquiry Pt receiving controlled substance: No Vital Signs: 05/19/24 19:32 05/19/24 19:34 05/19/24 19:45 Temperature 97.6 F Temperature Source Oral Pulse Rate 107 H 102 H Pulse Rate [Right Radial] 106 H Respiratory Rate 19 16 19 Blood Pressure Blood Pressure [Right Arm] 116/87 Blood Pressure Mean [Right Arm] 96 Blood Pressure Source Blood Pressure Source [Right Arm] Automatic Cuff 02 Sat by Pulse Oximetry 92 L 94 L 95 Oxygen Delivery Method Nasal Cannula Oxygen Flow Rate (LPM) 2 05/19/24 19:57 05/19/24 20:00 05/19/24 20:30 Temperature Temperature Source Pulse Rate 107 H 108 H 107 H Pulse Rate [Right Radial] Respiratory Rate 16 30 H 34 H Blood Pressure 111/82 114/84 108/81 L Blood Pressure [Right Arm] Blood Pressure Mean [Right Arm] Blood Pressure Source Automatic Cuff Blood Pressure Source [Right Arm] 02 Sat by Pulse Oximetry 96 97 92 L Oxygen Delivery Method Nasal Cannula Oxygen Flow Rate (LPM) 1 05/19/24 21:00 05/19/24 21:30 05/19/24 22:00 Temperature Temperature Source Pulse Rate 108 H 105 H Pulse Rate [Right Radial] Respiratory Rate 47 H 24 60 H Blood Pressure 117/93 H 112/91 H 109/86 L Blood Pressure [Right Arm] Blood Pressure Mean [Right Arm] Blood Pressure Source Blood Pressure Source [Right Arm] 02 Sat by Pulse Oximetry 99 99 Oxygen Delivery Method Oxygen Flow Rate (LPM) 05/19/24 22:29 05/19/24 22:31 05/19/24 23:00 Temperature Temperature Source Pulse Rate 107 H 107 H 115 H Pulse Rate [Right Radial] Respiratory Rate 14 53 H 30 H Blood Pressure 109/86 L 111/81 121/87 Blood Pressure [Right Arm] Blood Pressure Mean [Right Arm] Blood Pressure Source Blood Pressure Source [Right Arm] 02 Sat by Pulse Oximetry 96 92 L 92 L Oxygen Delivery Method Room Air Oxygen Flow Rate (LPM) Lab Data Lab Results 05/19/24 19:09: WBC 8.6, RBC 4.54 L, Hgb 13.0 L, Hct 40.9 L, MCV 90.1, MCH 28.6, MCHC 31.8, RDW 20.2 H, Plt Count 468 H, MPV 10.0, Neut % (Auto) 67.0, Lymph % (Auto) 17.6, [place] % (Auto) 10.0 H, Eos % (Auto) 3.6, Baso % (Auto) 1.3, Neut # (Auto) 5.7, Lymph # (Auto) 1.5, [place] # (Auto) 0.9, Eos # (Auto) 0.3, Baso # (Auto) 0.1, PT 12.7 H, INR 1.17 H, Sodium 135 L, Potassium 4.1, Chloride 101, Carbon Dioxide 23, Anion Gap 15.1 H, BUN 25 H, Creatinine 1.40 H, Estimated Creat Clear 60, Estimated GFR 53 L, Est GFR ( Amer) 64, Glucose 129 H, Calcium 8.7, Magnesium 1.9, Total Bilirubin 2.0 H, AST 43, ALT 39, Alkaline Phosphatase 164 H, Troponin I 0.24 H, NT-Pro-B Natriuret Pep 6070 H, Total Protein 6.9, Albumin 4.0, Globulin 2.9, Albumin/Globulin Ratio 1.4 05/19/24 19:49: VBG pH 7.34, VBG pCO2 43.0, VBG pO2 36.0, VBG HCO3 22.8 L, VBG Total CO2 24.1, VBG O2 Saturation 57.1, VBG Base Excess -3.0 L, VBG Lactic Acid 2.3 H 05/19/24 20:00: SARS-CoV-2 (PCR) Not detected, Influenza A Untype (PCR) Not detected, Influenza Type B (PCR) Not detected 05/19/24 19:09 05/19/24 19:09 Orders (Tests/Meds): ED MEDICATIONS Discontinued Medications Generic Name Dose Route Start Last Admin Trade Name Freq PRN Reason Stop Dose Admin Bumetanide 1 mg 05/19/24 20:12 05/19/24 20:18 Bumetanide 1mg/4ml Vial IV 05/19/24 20:13 1 mg ONCE ONE Administration Potassium Chloride 40 meq 05/19/24 20:12 05/19/24 20:18 Potassium Chloride 20meq Tab PO 05/19/24 20:13 40 meq ONCE ONE Administration ORDERS Category Date Time Status XR chest portable Stat Exams 05/19/24 19:48 Completed BNP [NT Pro Brain Natriuretic Pep.] Stat Lab 05/19/24 19:09 Completed CBC w/Auto Diff [Complete Blood Count Auto Diff] Stat Lab 05/19/24 19:09 Completed CMP [Comprehensive Metabolic Panel] Stat Lab 05/19/24 19:09 Completed MAG [Magnesium] Stat Lab 05/19/24 19:09 Completed PT INR [Prothrombin Time INR] Stat Lab 05/19/24 19:09 Completed Rapid PCR Covid and Flu A/B Stat Lab 05/19/24 20:00 Completed Trop I [Troponin I] Stat Lab 05/19/24 19:09 Completed Troponin I Q3H Lab 05/19/24 23:00 Ordered Troponin I Q3H Lab 05/20/24 02:00 Ordered VBG [Venous Blood Gas] Stat RT 05/19/24 19:49 Completed Medical Decision Narrative: In summary, this 54-year-old male presents to the emergency department today with shortness of breath. On initial evaluation patient is afebrile, initially on oxygen requirement of 6 L, but able to be weaned off of oxygen, however is mildly tachypneic and has rhonchi in the bases. Blood pressure stable. On exam, otherwise is well-perfused. Speaking in short sentences secondary to shortness of breath. Differential diagnosis includes but is not limited to CHF exacerbation, pleural effusion, electrolyte disturbance, ACS [place]. Based on these concerns, I ordered CBC CMP magnesium troponin BNP chest x-ray. I reviewed prior records including discharge summary from 5 days ago indicating discharged with Bumex as above, patient has been noncompliant. ECG personally interpreted demonstrates sinus tachycardia with enlarged left atrium and an incomplete right bundle branch block, no acute ischemic ST changes. Poor progression, not acutely actionable. Otherwise intervals within normal limits.. Patient received Bumex IV for treatment. Labs personally reviewed demonstrate Mild anemia, no leukocytosis, PT/INR within normal limits. Mild lactic acidosis with a lactate of 2.3, no hypercarbia. Creatinine elevated at 1.4, though per my review of the EMR, similar when compared with prior. Troponin elevated to 0.24, will obtain repeat. BNP elevated to 6000, although this is less than 8000 at baseline. . XR personally interpreted demonstrates no acute intrathoracic process no significant effusions. Patient placed in ED observation status at 2147 for repeat troponin. I had an interactive discussion with hospital medicine given patient's continued tachypnea even after diuresis. Even though he is not on oxygen requirement, he does not feel safe going home and does not have his proper medications. He will need to be monitored on telemetry and have more diuresis and cardiology consultation in the morning. Patient was transferred their service in hemodynamically stable condition.. Social determinants of health include inability to obtain medications outpatient and poor health literacy Critical Care Critical Care Time Critical Care Time: Yes Attestation: On 05/19/24, the high probability of a clinically significant, sudden or life threatening deterioration of the following system(s) required my full and direct attention, intervention and personal management. The time I documented below is in addition to time spent performing reported procedures but includes the following listed in this critical care notation. Total Time Total Critical Care Time: 35
[2024-05-19 20:04] LABS: Basophils # 0.1 K/mm3 (0-0.2); Basophils % 1.3 % (0.1-2.0); Eosinophils # 0.3 K/mm3 (0.0-0.4); Eosinophils % 3.6 % (0.1-12.0); Hematocrit 40.9 % (42.0-52.0); Lymphocytes # 1.5 K/mm3 (0.7-4.5); Lymphocytes % 17.6 % (10-50); Mean Corpuscular HGB Conc 31.8 g/dL (31.8-35.4); Mean Corpuscular Hemoglobin 28.6 pg (27.0-31.2); Mean Corpuscular Volume 90.1 fl (80-94); Monocytes # 0.9 K/mm3 (0.1-1.0); Neutrophils # 5.7 K/mm3 (1.8-7.8); Platelet Count 468 K/mm3 (142-424); Red Blood Count 4.54 M/mm3 (4.60-6.20); Red Cell Distribution Width 20.2 % (11.5-17.5); White Blood Count 8.6 K/mm3 (4.8-10.8)
[2024-05-19 20:04] LABS: VBG HCO3 22.8 mmol/L (23-30); VBG Oxygen Saturation 57.1 % (50-70); VBG PH 7.34 mmol/L (7.31-7.41); VBG Total CO2 24.1 mmol/L (23-27)
[2024-05-19 20:05] LABS: Lactate Venous 2.3 mmol/L (0.4-2.0)
[2024-05-19 20:07] LABS: Chloride 101 mmol/L (98-107); Potassium 4.1 mmoL/L (3.5-5.1); Sodium 135 mmol/L (136-145)
[2024-05-19 20:09] LABS: Alanine Aminotransferase 39 U/L (12-78); Blood Urea Nitrogen 25 mg/dl (9-20); Creatinine Clearance Estimated 60 mL/min (50-200); Estimated Glomerular Filt Rate 53 ml/min (>60); GFR (African American) 64 ML/MIN (>60); INR 1.17 (0.9-1.1); Prothrombin Time 12.7 seconds (9.2-12.1)
[2024-05-19 20:10] LABS: Albumin/Globulin Ratio 1.4 (1.1-1.8); Alkaline Phosphatase 164 U/L (38-126); Anion Gap 15.1 mEq/L (5-15); Aspartate Amino Transferase 43 U/L (17-59); Calcium 8.7 mg/dl (8.4-10.2); Carbon Dioxide 23 mmol/L (22.0-30.0); Globulin 2.9 g/dL (1.3-3.2); Glucose 129 mg/dl (74-100); Magnesium 1.9 mg/dl (1.6-2.3); Total Protein,Serum 6.9 g/dl (6.3-8.2)
[2024-05-19 20:12] LABS: Coronavirus 19, PCR Not Detected (NotDetected); Influenza A, PCR Not Detected (NotDetected); Influenza B, PCR Not Detected (NotDetected)
[2024-05-19] MEDS: BUMETANIDE 1MG/4ML VIAL 1 MG IV (20:18)
[2024-05-19] MEDS: POTASSIUM CHLORIDE 20MEQ TAB 40 MEQ PO (20:18)
[2024-05-19 20:19] LABS: NT Pro Brain Natriuretic Pep. 6070 pg/mL (0-125)
[2024-05-19 20:23] LABS: Troponin I 0.24 ng/ml (0.00-0.034)
[2024-05-20] VITALS (16 sets, daily range): BP systolic 98–136; BP diastolic 71–88; PULSE 80–109; RESP 14–33; TEMP 36.2–36.8; O2SAT 88–100; BMI 27.8; BMI 303.5
[2024-05-20 00:06] LABS: Reflex Lactic Add Lactic Reflex
--- NOTE | 2024-05-20 00:30 | P.HP_ITS ---
History of Present Illness *Admission Date: 05/20/24 *Reason for visit:: Shortness of breath *History of present illness: This is a 54-year-old male well known to our service with a history of severe left ventricular systolic dysfunction, left ventricular mural thrombosis, coron isauro artery disease status post PCI, cardiogenic shock, chronic kidney disease, acute kidney injury, hyperlipidemia, benign prostatic hyperplasia, allergic rhinitis, vitamin B12 deficiency, transaminitis, pleural effusion, and insomnia, who presents to the emergency department with worsening shortness of breath and lower extremity edema. He was discharged five days ago after a heart failure exacerbation with instructions to continue Bumex 2 mg orally at home, but he has been unable to obtain his medications due to insurance issues. Since discharge, he has had progressive bilateral lower extremity edema up to his knees, worsening orthopnea requiring him to sleep upright, and increasing dyspnea with exertion to the point that he can no longer perform activities of daily living. He denies fevers, cough, chest pain, numbness, weakness, tingling, vomiting, or diarrhea and reports adequate oral intake. On initial evaluation, the patient was tachypneic, requiring 6L oxygen, but was able to be weaned off. He was noted to be well-perfused but speaking in short sentences due to dyspnea. Auscultation revealed rhonchi at the lung bases, and ECG demonstrated sinus tachycardia with left atrial enlargement and an incomplete right bundle branch block, but no acute ischemic changes. Laboratory results showed mild anemia with a hemoglobin of 13.0, elevated creatinine at 1.4, similar to his baseline, mild lactic acidosis at 2.3, and an NT-proBNP of 6,070, which is lower than his baseline of 8,000. Troponin was 0.25 on initial draw and 0.24 on repeat, which is downtrending compared to prior a dmissions, making an acute coronary syndrome less likely. Chest X-ray revealed a lingular mass-like consolidation that has been previously seen on prior CTA but appears more prominent today, raising suspicion for a persistent underlying mass. Given his history of heart failure, medication noncompliance, and progressive symptoms, the leading concern is a recurrent CHF exacerbation, though the possibility of pleural effusion, underlying infection, and further assessment of the lung mass remain differentials requiring additional workup. The patient received IV Bumex for treatment, and further evaluation, including repeat troponins and additional imaging, is planned. PFSH PFSH Disclaimer: The information contained in this section may have been updated after the patient was seen, as this information can be updated by other users. Medical History Severe left ventricular systolic dysfunction (LVSD) Transaminitis RENAY (acute kidney injury) Anasarca LV (left ventricular) mural thrombus Acute hypoxemic respiratory failure Cardiogenic shock Non-STEMI (non-ST elevated myocardial infarction) Acute HFrEF (heart failure with reduced ejection fraction) Pneumonia Pleural effusion, bilateral Vitamin B12 deficiency Allergic rhinitis BPH (benign prostatic hyperplasia) Hyperlipidemia Insomnia Partial tear of right Achilles tendon Surgical History History of back surgery Family History Other No significant family history Social History Smoking Status: Never smoker alcohol intake: never substance use type: former substance user and heroin current occupational status: unemployed Travel in the last 8 weeks: None Have you lived/traveled outside [place] in past 30 days?: No Contact w/someone who lives/traveled outside [place] past 30 days?: No Exposure to someone with infectious disease in past 14 days?: No Do you have a fever (greater than 100.4 F or 38 C)?: No Have you tested positive for COVID-19: No Exposed to someone with COVID-19 in past 14 days?: No Do you have a sore throat?: No Do you have a cough?: No Do you have any weakness?: No Do you have any diarrhea?: No Are you experiencing any unusual bleeding?: No Do you have any muscle aches/pain?: No Do you have any abdominal pain?: No Are you experiencing loss of taste or smell?: No Other Medical History Have you received the Flu Vaccine for this season: No Have you received the Pneumonia Vaccine: No Review of Systems Review of Systems Review of systems (narrative): 13 point review of systems negative except as listed in HPI Meds Home Medications and Allergies Home Medications ?Medication ?Instructions ?Recorded ?Confirmed ?Type apixaban 5 mg tablet (Eliquis) 5 mg PO BID 05/20/24 05/20/24 History aspirin 81 mg tablet,delayed 81 mg PO DAILY 05/20/24 05/20/24 History release atorvastatin 80 mg tablet 80 mg PO DAILY 05/20/24 05/20/24 History bumetanide 2 mg tablet 2 mg PO DAILY 05/20/24 05/20/24 History clopidogrel 75 mg tablet (Plavix) 75 mg PO DAILY 05/20/24 05/20/24 History levofloxacin 750 mg tablet 750 mg PO DAILY 05/20/24 05/20/24 History metoprolol succinate 25 mg 25 mg PO DAILY 05/20/24 05/20/24 History tablet,extended release 24 hr potassium chloride 20 mEq 20 meq PO BID 05/20/24 05/20/24 History tablet,extended release tamsulosin 0.4 mg capsule 0.4 mg PO DAILY prostate 05/20/24 05/20/24 History New Prescriptions to Start Prescriptions: Allergies Allergy/AdvReac Type Severity Reaction Status Date / Time diclofenac (DICLOFENAC) Allergy Unknown Unknown Verified 05/20/24 00:11 allergy reaction Penicillins (PENICILLINS) Allergy Unknown Hives Verified 05/20/24 00:11 propoxyphene (PROPOXYPHENE) Allergy Unknown Unknown Verified 05/20/24 00:11 allergy reaction tramadol (TRAMADOL) Allergy Unknown Vomiting Verified 05/20/24 00:11 Exam Data for Last 24 hours Vital signs and Labs for Last 24 Hours: Temp Pulse Resp BP Pulse Ox O2 Del Method O2 Flow Rate 97.6 F 106 H 18 121/87 100 Room Air 1 05/20/24 00:05 05/20/24 00:05 05/20/24 00:05 05/20/24 00:05 05/19/24 23:43 05/20/24 00:39 05/19/24 19:57 Laboratory Results - last 24 hr 05/19/24 19:09: WBC 8.6, RBC 4.54 L, Hgb 13.0 L, Hct 40.9 L, MCV 90.1, MCH 28.6, MCHC 31.8, RDW 20.2 H, Plt Count 468 H, MPV 10.0, Neut % (Auto) 67.0, Lymph % (Auto) 17.6, Bowman % (Auto) 10.0 H, Eos % (Auto) 3.6, Baso % (Auto) 1.3, Neut # (Auto) 5.7, Lymph # (Auto) 1.5, Bowman # (Auto) 0.9, Eos # (Auto) 0.3, Baso # (Auto) 0.1, PT 12.7 H, INR 1.17 H, Sodium 135 L, Potassium 4.1, Chloride 101, Carbon Dioxide 23, Anion Gap 15.1 H, BUN 25 H, Creatinine 1.40 H, Estimated Creat Clear 60, Estimated GFR 53 L, Est GFR ( Amer) 64, Glucose 129 H, Calcium 8.7, Magnesium 1.9, Total Bilirubin 2.0 H, AST 43, ALT 39, Alkaline Phosphatase 164 H, Troponin I 0.24 H, NT-Pro-B Natriuret Pep 6070 H, Total Protein 6.9, Albumin 4.0, Globulin 2.9, Albumin/Globulin Ratio 1.4 05/19/24 19:49: VBG pH 7.34, VBG pCO2 43.0, VBG pO2 36.0, VBG HCO3 22.8 L, VBG Total CO2 24.1, VBG O2 Saturation 57.1, VBG Base Excess -3.0 L, VBG Lactic Acid 2.3 H 05/19/24 20:00: SARS-CoV-2 (PCR) Not detected, Influenza A Untype (PCR) Not detected, Influenza Type B (PCR) Not detected 05/20/24 00:43: Lactate 1.4 I & O for Last 24 hours: Intake & Output 05/17/24 05/18/24 05/19/24 05/20/24 23:59 23:59 23:59 23:59 Intake Total 0 / 0 Output Total 650 / 650 Balance -650 / -650 0 / 0 Weight 70.307 kg 80.6 kg Constitutional Constitutional: no acute distress and cooperative *Routine HEENT Exam Head: Present normocephalic and atraumatic Eye: Present EOMI, PERRL and normal accommodation ENT: Present mucous membranes moist *Routine Neck Exam Neck: Present supple, full ROM and trachea midline Routine Chest/Breast/Axilla Exam Chest wall: Present tenderness *Routine Respiratory Exam Respiratory: Present decreased breath sounds, crackles, normal respiratory effort, able to speak in complete sentences and symmetric chest movement *Routine Cardiovascular Exam Cardiovascular: Present RRR, Normal S1 and Normal S2 *Routine Abdominal Exam Abdominal: Present soft and normoactive bowel sounds *Routine Rectal Exam Rectal:: deferred *Routine Genitalia Exam Genitalia:: deferred *Routine Extremities Exam Extremities: Present edema, full ROM, pulses intact and normal capillary refill Routine Back/Spine/Pelvis Exam Back/Spine: Present full ROM *Routine Skin Exam Skin: Present dry and warm *Routine Neurological Exam Neurological: Present alert, oriented X3, CN II-XII intact and normal speech Routine Psychiatric Exam Psychiatric: Present normal affect, normal thought process, cooperative, good insight and good judgment Assessment and Plan *Assessment and plan (1) Acute HFrEF (heart failure with reduced ejection fraction): Status: Acute Category: Medical Code(s): I50.21 - Acute systolic (congestive) heart failure (2) CAD (coronary artery disease): Status: Acute Qualifiers: Associated angina: with unspecified form of angina Coronary Disease- Associated Artery/Lesion type: [place] artery [place] vs. transplanted heart: [place] chin heart Qualified Code(s): I25.119 - Atherosclerotic heart disease of [place] coronary artery with unspecified angina pectoris Category: Medical Code(s): I25.10 - Atherosclerotic heart disease of [place] coronary artery without angina pectoris (3) Pulmonary infiltrate: Status: Acute Category: Medical Code(s): R91.8 - Other nonspecific abnormal finding of lung field (4) Medically noncompliant: Status: Acute Category: Medical Code(s): Z91.199 - Patient's noncompliance with other medical treatment and regimen due to unspecified reason (5) Bilateral edema of lower extremity: Status: Acute Category: Medical Code(s): R60.0 - Localized edema (6) Severe left ventricular systolic dysfunction (LVSD): Status: Acute Category: Medical Code(s): I51.89 - Other ill-defined heart diseases (7) Anasarca: Status: Acute Category: Medical Code(s): R60.1 - Generalized edema (8) Hyperlipidemia: Status: Chronic Qualifiers: Hyperlipidemia type: unspecified Qualified Code(s): E78.5 - Hyperlipidemia, unspecified Category: Medical Code(s): E78.5 - Hyperlipidemia, unspecified Plan Medical Decision Making: This is a 54-year-old male with severe left ventricular systolic dysfunction, coronary artery disease, chronic kidney disease, and a history of cardiogenic shock, presenting with worsening dyspnea and lower extremity edema, likely due to a recurrent heart failure exacerbation in the setting of medication noncompliance. He was tachypneic on arrival, initially requiring 6L oxygen but was able to be weaned. NT-proBNP is elevated at 6,070, though lower than his baseline of 8,000, and troponin is mildly elevated but downtrending from prior admissions, making acute coronary syndrome less likely. Chest X-ray shows a persistent lingular mass-like consolidation, appearing more prominent than on prior imaging, warranting consideration. He has received IV Bumex for fluid overload, and renal function will be monitored given his history of CKD and acute kidney injury. Additional workup will include repeat troponins, trending BNP, and further imaging to assess the lung mass. Anticipate ongoing diuresis with careful volume management and possible cardiology consultation for optimization of his heart failure regimen. Severe left ventricular systolic dysfunction with heart failure exacerbation * Progressive dyspnea, significant orthopnea, and lower extremity edema suggest volume overload * NT-proBNP 6,070, lower than baseline of 8,000, supports decompensation without acute worsening * Troponin mildly elevated at 0.25, downtrending to 0.24, likely from myocardial wall stress rather than ACS * Continue IV Bumex to promote diuresis, closely monitoring urine output and renal function * Monitor electrolytes (K+, Mg2+) with diuresis and replace as needed * Daily weights, strict I/Os, and pulmonary exams for fluid status assessment * Ensure access to home diuretics before discharge to prevent recurrent decompensation Acute kidney injury on chronic kidney disease * Creatinine 1.4, consistent with prior baseline but elevated compared to normal renal function * Likely prerenal RENAY due to volume overload, but diuresis may also stress renal function * Monitor renal function closely with daily BMP * Optimize volume status with goal-directed diuresis while avoiding excessive hypovolemia * Hold nephrotoxic medications if renal function worsens Coronary artery disease (s/p PCI, on dual antiplatelet therapy) * Troponin 0.25 - 0.24, downtrending and stable compared to prior admissions, making ACS unlikely * ECG shows sinus tachycardia with left atrial enlargement and incomplete RBBB but no acute ischemic changes * Continue aspirin 81 mg daily; consider re-evaluating prasugrel use given bleeding risk with diuresis and anticoagulation needs * Continue atorvastatin 40 mg daily for secondary prevention * Monitor for ongoing ischemic symptoms; consider repeat ECG if chest pain develops Lingular mass-like consolidation on chest x-ray * Previously seen on CTA (04/03/2024) but appears more prominent on current imaging * Differential includes chronic consolidation, post-inflammatory changes, or neoplastic process * Plan for repeat CTA chest or further imaging with PET scan if clinically indicated * Consider pulmonology consultation for further evaluation, including potential bronchoscopy if suspicion remains high Pleural effusion (chronic vs. acute worsening) * Known history of pleural effusion, unclear if it has worsened * Monitor for any signs of increased respiratory distress * Consider thoracic ultrasound or repeat imaging to assess for significant interval change Electrolyte imbalances * Sodium 135, mildly low but stable; monitor with ongoing diuresis * Potassium 4.1, within normal limits but requires monitoring with diuretic therapy * Magnesium 1.9, adequate but should be rechecked given loop diuretic use * Correct any imbalances as needed to prevent arrhythmias Mild lactic acidosis (lactate 2.3) * Likely secondary to increased work of breathing and tissue hypoxia from volume overload * No signs of sepsis or significant hemodynamic instability * Trend lactate to ensure resolution with improved perfusion Benign prostatic hyperplasia (on no active treatment) * No acute urinary retention reported * Monitor for any worsening symptoms that may require intervention Insomnia and vitamin B12 deficiency * No acute issues at present, continue current management Disposition * Admit for diuresis and heart failure optimization * Continue IV Bumex, monitoring renal function and electrolytes closely * Trend BNP and daily weights for volume status assessment * Further imaging for lung mass evaluation if indicated * Coordinate with case management to ensure access to home diuretics before discharge to prevent readmission Rounded on patient after nurse practitioner. Personally examined and interviewed patient. Agree with exam findings and care plan as documented. Per chart review, echo obtained 03/26/2024 shows EF of 20%. Grade 2 diastolic dysfunction. Severe combined heart failure. Appears to be in exacerbation due to medication noncompliance. Will diurese aggressively. Cardiology consulted to evaluate patient in the morning. Monitoring electrolytes closely with BMP and magnesium ordered every 12 hours to monitor potassium, kidney function, magnesium levels. Serial troponin stable at 0.25-0.27. Monitoring on telemetry. No acute ischemic changes.
[2024-05-20] MEDS: ACETAMINOPHEN 325MG TAB 650 MG PO ×2 (00:45→21:52)
--- NOTE | 2024-05-20 00:47 | PC.NURSE ---
When performing medication reconciliation, patient was unsure of the medications he was supposed to be taking due to never receiving them. Medications pulled from discharge summary from 05/13/24 and added to his home medication list.
[2024-05-20 01:02] LABS: Lactic Acid Follow Up (RFLX 1) 1.4 mmol/L (0.7-2.1)
[2024-05-20 01:42] LABS: Troponin I 0.25 ng/ml (0.00-0.034)
[2024-05-20] MEDS: BUMETANIDE 1MG/4ML VIAL 1 MG IV ×4 (02:39→21:31)
[2024-05-20 04:24] LABS: Chloride 104 mmol/L (98-107); Sodium 135 mmol/L (136-145)
[2024-05-20 04:25] LABS: Potassium 4.4 mmoL/L (3.5-5.1)
[2024-05-20 04:27] LABS: Blood Urea Nitrogen 26 mg/dl (9-20); Creatinine Clearance Estimated -36 mL/min (50-200); Estimated Glomerular Filt Rate 53 ml/min (>60); GFR (African American) 64 ML/MIN (>60)
[2024-05-20 04:28] LABS: Anion Gap 12.4 mEq/L (5-15); Calcium 8.6 mg/dl (8.4-10.2); Carbon Dioxide 23 mmol/L (22.0-30.0); Cholesterol 129 mg/dl (140-200); Glucose 137 mg/dl (74-100); Triglycerides 51 mg/dl (30-150); VLDL Cholesterol 10 mg/dL (0-40)
[2024-05-20 04:29] LABS: HDL Cholesterol 26 mg/dl (40-60); Magnesium 1.8 mg/dl (1.6-2.3)
[2024-05-20 04:39] LABS: Direct LDL Cholesterol 79.02 mg/dL (100-129)
[2024-05-20 04:41] LABS: Troponin I 0.27 ng/ml (0.00-0.034)
--- NOTE | 2024-05-20 08:58 | HMH.PHAINT1 ---
Pharmacy Intervention Comments: MEDICATION RECONCILIATION COMPLETED ON PATIENT USING DISCHARGE SUMMARY FROM PREVIOUS ADMISSION AND LISTS FROM PCP/CARDIOLOGY OFFICES. -IRMA AYALA, CASSIAD
[2024-05-20] MEDS: POTASSIUM CHLORIDE 20MEQ TAB 20 MEQ PO ×2 (09:09→20:28)
[2024-05-20] MEDS: CLOPIDOGREL 75MG TAB 75 MG PO (09:09)
[2024-05-20] MEDS: APIXABAN 5MG TABLET 5 MG PO ×2 (09:09→20:28)
[2024-05-20] MEDS: ASPIRIN EC 81MG TABLET 81 MG PO (09:09)
[2024-05-20] MEDS: METOPROLOL SUCCINATE XL 25MG TABLET 25 MG PO (09:09)
[2024-05-20] MEDS: MAGNESIUM SULFATE IN WATER 2 GM/50 ML PIGGYBACK IV (09:46)
[2024-05-20 18:28] LABS: Chloride 98 mmol/L (98-107); Sodium 134 mmol/L (136-145)
[2024-05-20 18:29] LABS: Potassium 5.1 mmoL/L (3.5-5.1)
[2024-05-20 18:31] LABS: Anion Gap 17.1 mEq/L (5-15); Blood Urea Nitrogen 31 mg/dl (9-20); Calcium 8.6 mg/dl (8.4-10.2); Carbon Dioxide 24 mmol/L (22.0-30.0); Creatinine Clearance Estimated -28 mL/min (50-200); Estimated Glomerular Filt Rate 40 ml/min (>60); GFR (African American) 48 ML/MIN (>60); Glucose 158 mg/dl (74-100)
[2024-05-20] MEDS: PANTOPRAZOLE 40MG TABLET 40 MG PO (20:28)
[2024-05-20] MEDS: TAMSULOSIN 0.4MG CAPSULE 0.4 MG PO (20:28)
[2024-05-20] MEDS: ATORVASTATIN 40MG TABLET 80 MG PO (20:28)
[2024-05-20] MEDS: GUAIFENESIN/DEXTROMETHORPHAN 200MG/20MG 10ML UDC 10 ML PO (21:56)
[2024-05-21] VITALS (7 sets, daily range): BP systolic 91–109; BP diastolic 59–73; PULSE 80–100; RESP 16–22; TEMP 35.9–36.5; O2SAT 90–100; BMI 35.7
[2024-05-21] MEDS: IPRATROPIUM/ALBUTEROL 3 ML NEB IH (00:42)
--- NOTE | 2024-05-21 03:38 | PC.NURSE ---
patient is alert and oriented X4. patient has had some SOB this shift, PHYSICIAN OFFICE [facility] AS[facility] was notified, bumex was administered, breathing treatment was administered, ativan was ordered PRN for anxiety. patient has had a non-productive cough this shift, prn cough medication was given per mar. patient c/o headache, prn tylenol was given per mar with favorable outcome. patient O2 sats 97-100% on 2L NC.
[2024-05-21] MEDS: GUAIFENESIN/DEXTROMETHORPHAN 200MG/20MG 10ML UDC 10 ML PO ×2 (03:50→10:18)
[2024-05-21 04:52] LABS: Basophils # 0.1 K/mm3 (0-0.2); Eosinophils # 0.3 K/mm3 (0.0-0.4); Eosinophils % 3.6 % (0.1-12.0); Hematocrit 38.4 % (42.0-52.0); Hemoglobin 12.6 g/dL (14.1-18.0); Lymphocytes # 1.5 K/mm3 (0.7-4.5); Lymphocytes % 19.3 % (10-50); Mean Corpuscular HGB Conc 32.8 g/dL (31.8-35.4); Mean Corpuscular Volume 88.5 fl (80-94); Mean Platelet Volume 9.9 fl (7.4-10.4); Monocytes # 0.9 K/mm3 (0.1-1.0); Monocytes % 11.3 % (1.7-9.3); Neutrophils % 64.3 % (37.0-80.0); Platelet Count 395 K/mm3 (142-424); Red Blood Count 4.34 M/mm3 (4.60-6.20); Red Cell Distribution Width 19.9 % (11.5-17.5); White Blood Count 7.8 K/mm3 (4.8-10.8)
[2024-05-21 05:02] LABS: Albumin Level 3.7 g/dl (3.5-5.0); Chloride 100 mmol/L (98-107); Sodium 133 mmol/L (136-145)
[2024-05-21 05:03] LABS: Potassium 5.1 mmoL/L (3.5-5.1)
[2024-05-21 05:05] LABS: Alanine Aminotransferase 36 U/L (12-78); Albumin/Globulin Ratio 1.2 (1.1-1.8); Alkaline Phosphatase 162 U/L (38-126); Anion Gap 17.1 mEq/L (5-15); Aspartate Amino Transferase 44 U/L (17-59); Bilirubin,Total 1.4 mg/dl (0.2-1.3); Blood Urea Nitrogen 35 mg/dl (9-20); Carbon Dioxide 21 mmol/L (22.0-30.0); Creatinine Clearance Estimated -30 mL/min (50-200); Estimated Glomerular Filt Rate 42 ml/min (>60); GFR (African American) 51 ML/MIN (>60); Total Protein,Serum 6.7 g/dl (6.3-8.2)
[2024-05-21 05:06] LABS: Calcium 8.5 mg/dl (8.4-10.2); Glucose 93 mg/dl (74-100)
--- NOTE | 2024-05-21 05:35 | CA_ITS ---
APPROVED REPORT EXAM: Limited 2D Echocardiogram with contrast Ambulatory Service Representative: Eliana Crawley RT(R) Ht: 5 ft 0 in Wt: 182lbs BSA: 1.79 BP: 142/82 mmHg Indications: SOA, LV dysfunction, CAD, HFrEF, HTN, hyperlipidemia, 03/26/24 echo EF20% with LV thrombus. ordered as Limited to assess EF Echo Enhancing Agent Indication: Endocardial border delineation Agent(s) / Amount(s) Used: Definity 2 cc 2D Dimensions EF AP4 14.10 % GL Strain -3.7 % M-Mode Dimensions RVDd 3.22 cm (0.9-2.6) LVDd 4.91 cm (3.5-5.7) LVDs 4.60 cm (3.5-5.7) IVSd 0.77 cm (0.6-1.1) PWd 0.91 cm (0.6-1.1) EF (Teich) 14.20% FS 6.30% EDV (Teich) 113.40 mL ESV (Teich) 97.30 mL Other Information Study Quality: Fair Conclusion This is a limited TTE to evaluate for LV systolic function. Limited windows are obtained. The left ventricle is normal in size. There is normal LV wall thickness. There is severe global hypokinesis present. The septal,, inferior, and inferior septal LV rivera are akinetic. LVEF is 10-15%. The right ventricle is mildly dilated with severe reduction in RV function. Biatrial dilation is present. Administration of ultrasound enhancing agent (echo contrast) demonstrates no evidence of LV thrombus. Electronically signed by : Es Bustillo MD 05/21/2024 10:44:53
--- NOTE | 2024-05-21 06:00 | XR_ITS ---
FINAL REPORT CLINICAL HISTORY: CHF COMPARISON: 05/19/2024 FINDINGS: There is a rounded mass-like opacity in the periphery of the left midlung, similar to prior exam. No evidence of pulmonary edema or vascular congestion. Mild cardiomegaly is noted. Mediastinum is unremarkable. Mild cardiomegaly is noted. IMPRESSION: Stable mass-like density left lung. No evidence of edema/CHF. Reviewed, Interpreted and Dictated by Monse Muir MD Transcribed by Awa Kan Authenticated and [facility]
[2024-05-21] MEDS: APIXABAN 5MG TABLET 5 MG PO (08:17)
[2024-05-21] MEDS: CLOPIDOGREL 75MG TAB 75 MG PO (08:17)
[2024-05-21] MEDS: ASPIRIN EC 81MG TABLET 81 MG PO (08:17)
[2024-05-21] MEDS: BUMETANIDE 1MG/4ML VIAL 1 MG IV ×2 (08:17→16:04)
[2024-05-21] MEDS: METOPROLOL SUCCINATE XL 25MG TABLET 25 MG PO (08:17)
[2024-05-21] MEDS: POTASSIUM CHLORIDE 20MEQ TAB 20 MEQ PO (08:17)
[2024-05-21] MEDS: DEFINITY US ECHO CONTRAST 2ML INJ 2 MG IV (08:22)
--- NOTE | 2024-05-21 09:12 | P.PN_ITS ---
Subjective *Date: 05/21/24 *Time: 09:12 Medical Exam Vital signs and Labs for Last 24 Hours: Vital Signs Temp Pulse Pulse Resp BP BP Pulse Ox 05/21/24 08:00 90 05/21/24 08:00 97.6 F 97 H 16 95/59 L 95 05/21/24 06:31 05/21/24 05:00 05/21/24 04:00 97.7 F 93 H 20 93/73 L 100 05/21/24 04:00 100 H 05/21/24 03:00 05/21/24 01:00 05/21/24 00:52 94 H 05/21/24 00:51 92 H 05/21/24 00:00 90 05/21/24 00:00 96.7 F L 93 H 22 91/72 L 100 05/20/24 23:00 05/20/24 21:00 05/20/24 20:00 97.9 F 90 22 106/73 L 97 05/20/24 20:00 05/20/24 20:00 80 05/20/24 17:58 05/20/24 16:51 05/20/24 16:00 90 05/20/24 16:00 98.3 F 92 H 18 98/71 L 100 05/20/24 13:59 05/20/24 13:00 05/20/24 12:00 95 H 05/20/24 12:00 97.8 F 93 H 20 105/76 L 99 05/20/24 11:30 94 H 19 99 05/20/24 11:00 05/20/24 10:00 104 H 22 88 L 05/20/24 10:00 102/80 L O2 Del Method O2 Flow Rate 05/21/24 08:00 05/21/24 08:00 Room Air 05/21/24 06:31 Room Air 05/21/24 05:00 Room Air 05/21/24 04:00 Room Air 05/21/24 04:00 05/21/24 03:00 Nasal Cannula 2 05/21/24 01:00 Nasal Cannula 2 05/21/24 00:52 05/21/24 00:51 05/21/24 00:00 05/21/24 00:00 Nasal Cannula 3 05/20/24 23:00 Nasal Cannula 2 05/20/24 21:00 Nasal Cannula 2 05/20/24 20:00 Nasal Cannula 2 05/20/24 20:00 Nasal Cannula 2 05/20/24 20:00 05/20/24 17:58 Room Air 05/20/24 16:51 Room Air 05/20/24 16:00 05/20/24 16:00 05/20/24 13:59 Nasal Cannula 2 05/20/24 13:00 Nasal Cannula 2 05/20/24 12:00 05/20/24 12:00 Room Air 05/20/24 11:30 05/20/24 11:00 Nasal Cannula 2 05/20/24 10:00 Room Air 05/20/24 10:00 Intake and Output 05/20/24 05/21/24 05/21/24 23:59 07:59 15:59 Intake Total 480 / 960 480 / 960 Output Total 475 / 3275 450 / 700 250 / 700 Balance -475 / -1981 30 / 260 230 / 260 Intake: Intake, Oral Amount 480 / 960 480 / 960 Output: Output, Urine Amount 475 / 3275 450 / 700 250 / 700 Other: Weight 82.599 kg Patient Weight 05/21/24 23:59 Weight 82.599 kg Laboratory Results - last 24 hr 05/20/24 18:15: Sodium 134 L, Potassium 5.1, Chloride 98, Carbon Dioxide 24, Anion Gap 17.1 H, BUN 31 H, Creatinine 1.80 H D, Estimated Creat Clear -28 L, Estimated GFR 40 L, Est GFR ( Amer) 48 L D, Glucose 158 H, Calcium 8.6, Magnesium 2.0 D 05/21/24 04:20: WBC 7.8, RBC 4.34 L, Hgb 12.6 L, Hct 38.4 L, MCV 88.5, MCH 29.0, MCHC 32.8, RDW 19.9 H, Plt Count 395, MPV 9.9, Neut % (Auto) 64.3, Lymph % (Auto) 19.3, [place] % (Auto) 11.3 H, Eos % (Auto) 3.6, Baso % (Auto) 1.0, Neut # (Auto) 5.0, Lymph # (Auto) 1.5, [place] # (Auto) 0.9, Eos # (Auto) 0.3, Baso # (Auto) 0.1, Sodium 133 L, Potassium 5.1, Chloride 100, Carbon Dioxide 21 L, Anion Gap 17.1 H, BUN 35 H, Creatinine 1.70 H, Estimated Creat Clear -30 L, Estimated GFR 42 L, Est GFR ( Amer) 51 L, Glucose 93 D, Calcium 8.5, Magnesium 2.0, Total Bilirubin 1.4 H, AST 44, ALT 36, Alkaline Phosphatase 162 H , Total Protein 6.7, Albumin 3.7, Globulin 3.0, Albumin/Globulin Ratio 1.2 I & O for Labs for Last 24 Hours: Intake & Output 05/18/24 05/19/24 05/20/24 05/21/24 23:59 23:59 23:59 23:59 Intake Total 1294 / 1294 960 / 960 Output Total 650 / 650 3025 / 3275 700 / 700 Balance -650 / -650 -1731 / -1981 260 / 260 Weight 70.307 kg 81.5 kg 82.599 kg Assessment and Plan *Assessment and plan (1) Acute HFrEF (heart failure with reduced ejection fraction): Status: Acute Category: Medical Code(s): I50.21 - Acute systolic (congestive) heart failure (2) CAD (coronary artery disease): Status: Acute Qualifiers: Coronary Disease-Associated Artery/Lesion type: [place] artery [place] vs. transplanted heart: [place] heart Associated angina: with unspecified form of angina Qualified Code(s): I25.119 - Atherosclerotic heart disease of [place] coronary artery with unspecified angina pectoris Category: Medical Code(s): I25.10 - Atherosclerotic heart disease of [place] coronary artery without angina pectoris (3) Pulmonary infiltrate: Status: Acute Category: Medical Code(s): R91.8 - Other nonspecific abnormal finding of lung field (4) Medically noncompliant: Status: Acute Category: Medical Code(s): Z91.199 - Patient's noncompliance with other medical treatment and regimen due to unspecified reason (5) Bilateral edema of lower extremity: Status: Acute Category: Medical Code(s): R60.0 - Localized edema (6) Severe left ventricular systolic dysfunction (LVSD): Status: Acute Category: Medical Code(s): I51.89 - Other ill-defined heart diseases (7) Anasarca: Status: Acute Category: Medical Code(s): R60.1 - Generalized edema (8) Hyperlipidemia: Status: Chronic Qualifiers: Hyperlipidemia type: unspecified Qualified Code(s): E78.5 - Hyperlipidemia, unspecified Category: Medical Code(s): E78.5 - Hyperlipidemia, unspecified Plan Medical Decision Making: This is a 54-year-old male with severe left ventricular systolic dysfunction, coronary artery disease, chronic kidney disease, and a history of cardiogenic shock, presenting with worsening dyspnea and lower extremity edema, likely due to a recurrent heart failure exacerbation in the setting of medication noncompliance. He was tachypneic on arrival, initially requiring 6L oxygen but was able to be weaned. NT-proBNP is elevated at 6,070, though lower than his baseline of 8,000, and troponin is mildly elevated but downtrending from prior admissions, making acute coronary syndrome less likely. Chest X-ray shows a persistent lingular mass-like consolidation, appearing more prominent than on prior imaging, warranting consideration. He has received IV Bumex for fluid overload, and renal function will be monitored given his history of CKD and acute kidney injury. Additional workup will include repeat troponins, trending BNP, and further imaging to assess the lung mass. Anticipate ongoing diuresis with careful volume management and possible cardiology consultation for optimization of his heart failure regimen. Severe left ventricular systolic dysfunction with heart failure exacerbation * Progressive dyspnea, significant orthopnea, and lower extremity edema suggest volume overload * NT-proBNP 6,070, lower than baseline of 8,000, supports decompensation without acute worsening * Troponin mildly elevated at 0.25, downtrending to 0.24, likely from myocardial wall stress rather than ACS * Continue IV Bumex to promote diuresis, closely monitoring urine output and renal function * Monitor electrolytes (K+, Mg2+) with diuresis and replace as needed * Daily weights, strict I/Os, and pulmonary exams for fluid status assessment * Ensure access to home diuretics before discharge to prevent recurrent decompensation Acute kidney injury on chronic kidney disease * Creatinine 1.4, consistent with prior baseline but elevated compared to normal renal function * Likely prerenal RENAY due to volume overload, but diuresis may also stress renal function * Monitor renal function closely with daily BMP * Optimize volume status with goal-directed diuresis while avoiding excessive hypovolemia * Hold nephrotoxic medications if renal function worsens Coronary artery disease (s/p PCI, on dual antiplatelet therapy) * Troponin 0.25 - 0.24, downtrending and stable compared to prior admissions, making ACS unlikely * ECG shows sinus tachycardia with left atrial enlargement and incomplete RBBB but no acute ischemic changes * Continue aspirin 81 mg daily; consider re-evaluating prasugrel use given bleeding risk with diuresis and anticoagulation needs * Continue atorvastatin 40 mg daily for secondary prevention * Monitor for ongoing ischemic symptoms; consider repeat ECG if chest pain develops Lingular mass-like consolidation on chest x-ray * Previously seen on CTA (04/03/2024) but appears more prominent on current imaging * Differential includes chronic consolidation, post-inflammatory changes, or neoplastic process * Plan for repeat CTA chest or further imaging with PET scan if clinically indicated * Consider pulmonology consultation for further evaluation, including potential bronchoscopy if suspicion remains high Pleural effusion (chronic vs. acute worsening) * Known history of pleural effusion, unclear if it has worsened * Monitor for any signs of increased respiratory distress * Consider thoracic ultrasound or repeat imaging to assess for significant interval change Electrolyte imbalances * Sodium 135, mildly low but stable; monitor with ongoing diuresis * Potassium 4.1, within normal limits but requires monitoring with diuretic therapy * Magnesium 1.9, adequate but should be rechecked given loop diuretic use * Correct any imbalances as needed to prevent arrhythmias Mild lactic acidosis (lactate 2.3) * Likely secondary to increased work of breathing and tissue hypoxia from volume overload * No signs of sepsis or significant hemodynamic instability * Trend lactate to ensure resolution with improved perfusion Benign prostatic hyperplasia (on no active treatment) * No acute urinary retention reported * Monitor for any worsening symptoms that may require intervention Insomnia and vitamin B12 deficiency * No acute issues at present, continue current management Disposition * Admit for diuresis and heart failure optimization * Continue IV Bumex, monitoring renal function and electrolytes closely * Trend BNP and daily weights for volume status assessment * Further imaging for lung mass evaluation if indicated * Coordinate with case management to ensure access to home diuretics before discharge to prevent readmission Rounded on patient after nurse practitioner. Personally examined and interviewed patient. Agree with exam findings and care plan as documented. Per chart review, echo obtained 03/26/2024 shows EF of 20%. Grade 2 diastolic dysfunction. Severe combined heart failure. Appears to be in exacerbation due to medication noncompliance. Will diurese aggressively. Cardiology consulted to evaluate patient in the morning. Monitoring electrolytes closely with BMP and magnesium ordered every 12 hours to monitor potassium, kidney function, magnesium levels. Serial troponin stable at 0.25-0.27. Monitoring on telemetry. No acute ischemic changes.
--- NOTE | 2024-05-21 09:59 | HMH.OTEV ---
OT Inpatient Evaluation Rehab OT IP Evaluation Start: 05/20/24 08:02 Freq: ONCE Status: Active Protocol: Document 05/21/24 09:56 [facility] (Rec: 05/21/24 09:59 [facility] [id number]) Rehab OT IP Assessment Subjective History Pt oriented x 3 on arrival. Pt agreeable to engage in therapy evaluation. Pt was admitted to [facility] on 05/20/24 due to CHF. History and physical: This is a 54-year-old male well known to our service with a history of severe left ventricular systolic dysfunction, left ventricular mural thrombosis, coronary artery disease status post PCI , cardiogenic shock, chronic kidney disease, acute kidney injury, hyperlipidemia, benign prostatic hyperplasia, allergic rhinitis, vitamin B12 deficiency, transaminitis, pleural effusion, and insomnia , who presents to the emergency department with worsening shortness of breath and lower extremity edema. He was discharged five days ago after a heart failure exacerbation with instructions to continue Bumex 2 mg orally at home, but he has been unable to obtain his medications due to insurance issues. Since discharge, he has had progressive bilateral lower extremity edema up to his knees, worsening orthopnea requiring him to sleep upright, and increasing dyspnea with exertion to the point that he can no longer perform activities of daily living. He denies fevers, cough, chest pain, numbness, weakness, tingling, vomiting, or diarrhea and reports adequate oral intake. On initial evaluation, the patient was tachypneic, requiring 6L oxygen, but was able to be weaned off. He was noted to be well-perfused but speaking in short sentences due to dyspnea. Auscultation revealed rhonchi at the lung bases, and ECG demonstrated sinus tachycardia with left atrial enlargement and an incomplete right bundle branch block, but no acute ischemic changes. Laboratory results showed mild anemia with a hemoglobin of 13.0, elevated creatinine at 1 .4, similar to his baseline, mild lactic acidosis at 2.3, and an NT-proBNP of 6,070, which is lower than his baseline of 8,000. Troponin was 0.25 on initial draw and 0 .24 on repeat, which is down trending compared to prior admissions, making an acute coronary syndrome less likely. Chest X-ray revealed a lingular mass-like consolidation that has been previously seen on prior CTA but appears more prominent today, raising suspicion for a persistent underlying mass. Given his history of heart failure, medication noncompliance, and progressive symptoms, the leading concern is a recurrent CHF exacerbation, though the possibility of pleural effusion, underlying infection , and further assessment of the lung mass remain differentials requiring additional workup. The patient received IV Bumex for treatment, and further evaluation, including repeat troponins and additional imaging, is planned. Subjective I have a bad back, but that's it. Prior to being in the hospital , pt lived at home alone. Pt claims he is normally independent with all ADLs and IADLs. He does not require any type of AE during functional transfers. Pt still drives. He no longer works and is on disability. Objective Patient Orientation Person,Place,Birthday Right Upper Extremity Gross ROM WFL Left Upper Extremity Gross ROM WFL Bed Mobility bed mobility-scooting,bed mobility - supine/sit Assist Level Supervision/Stand by Transfer Training Sit/Stand Transfer Assist Level Supervision/Stand by Chair Transfer Ability Supervision/Stand by Chair Transfer Technique Sit to/from Ambulatory Performing Toilet Hygiene Ability Standby Assistance Overall Commode/Toilet Transfer Ability Standby Assistance Commode/Toilet Transfer Technique Sit to/from Ambulatory Rehab OT IP prob,goals,plan Problems Date of Evaluation: 05/21/24 Rehab Potential Rehab Potential Innapropriate for Skilled Therapy Discharge Plan OT Discharge Plan Pt appears to be at his baseline with functional transfers and ADL independence . Pt can return home once he is medically stable per physician. Eval Complexity Eval Charge Codes 08166 - Low Complexity PHYSICIAN CERTIFICATION: I certify the specified therapy services for Manuel Gonsales are required, authorized, and reviewed every 30 days.
[2024-05-21 10:36] LABS: C-Reactive Protein 26.4 mg/L (0-4)
--- NOTE | 2024-05-21 10:39 | EXP.CARD.CON ---
History of Present Illness History of Present Illness Consult date: 05/21/24 Requesting physician: Jace Haney Consult reason: congestive heart failure Chief complaint: leg swelling History of present illness: 53-year-old white male first seen in this facility 03/26/2024 with late presentation GA, EF 15 to 20%, large LV thrombus, and cardiogenic shock. He got stents to LAD and left circumflex, diuresed 17 L, was stabilizing and starting GDMT with a vest ordered when he left AMA. He has returned now for 3rd CHF admission due to medication noncompliance. Pt voices insurance concerns but we have given him free medications, and consulted case management with assistance each time. Patient just seems unwilling to follow his treatment plan. Pt returned here again yesterday via EMS in resp distress on 6L/min with vol overload. Same meds resumed and he's down 2.3L so far over night. BP 93/73 and Cr at baselin of 1.7. He complains of cough, has ronchi both lungs and pitting edema thigh high bilaterally. There is concern for lung mass which is new this admission. [facility] Disclaimer: The information contained in this section may have been updated after the patient was seen, as this information can be updated by other users. Medical History Severe left ventricular systolic dysfunction (LVSD) Transaminitis RENAY (acute kidney injury) Anasarca LV (left ventricular) mural thrombus Acute hypoxemic respiratory failure Cardiogenic shock Non-STEMI (non-ST elevated myocardial infarction) Acute HFrEF (heart failure with reduced ejection fraction) Pneumonia Pleural effusion, bilateral Vitamin B12 deficiency Allergic rhinitis BPH (benign prostatic hyperplasia) Hyperlipidemia Insomnia Partial tear of right Achilles tendon Surgical History History of back surgery Family History Other No significant family history Social History Smoking Status: Never smoker alcohol intake: never substance use type: former substance user and heroin current occupational status: unemployed Travel in the last 8 weeks: None Have you lived/traveled outside [place] in past 30 days?: No Contact w/someone who lives/traveled outside US past 30 days?: No Exposure to someone with infectious disease in past 14 days?: No Do you have a fever (greater than 100.4 F or 38 C)?: No Have you tested positive for COVID-19: No Exposed to someone with COVID-19 in past 14 days?: No Do you have a sore throat?: No Do you have a cough?: No Do you have any weakness?: No Do you have any diarrhea?: No Are you experiencing any unusual bleeding?: No Do you have any muscle aches/pain?: No Do you have any abdominal pain?: No Are you experiencing loss of taste or smell?: No Review of Systems Constitutional Constitutional: Reports fatigue and Reports weakness Eyes Eyes: Denies loss of vision ENT Ears, Nose, Mouth, and Throat: Denies hearing loss and Denies vertigo *Cardiovascular Cardiovascular: Denies chest pain, Reports dyspnea, Reports leg edema and Denies syncope *Respiratory Respiratory: Reports cough and Reports dyspnea *Gastrointestinal Gastrointestinal: Denies change in stool character, Denies nausea and Denies vomiting *Genitourinary Genitourinary: Denies difficulty urinating *Musculoskeletal Musculoskeletal: Denies muscle weakness Integumentary/Breasts Skin/Breast: Denies changing lesions *Neurologic Neurologic: Denies loss of vision, Denies syncope, Denies vertigo and Reports weakness Endocrine Endocrine: Reports fatigue Exam Data for Last 24 hours Vital signs and Labs for Last 24 Hours: Temp Pulse Resp BP Pulse Ox O2 Del Method O2 Flow Rate 97.6 F 97 H 16 95/59 L 95 Room Air 2 05/21/24 08:00 05/21/24 08:00 05/21/24 08:00 05/21/24 08:00 05/21/24 08:00 05/21/24 09:00 05/21/24 03:00 Laboratory Results - last 24 hr 05/20/24 18:15: Sodium 134 L, Potassium 5.1, Chloride 98, Carbon Dioxide 24, Anion Gap 17.1 H, BUN 31 H, Creatinine 1.80 H D, Estimated Creat Clear -28 L, Estimated GFR 40 L, Est GFR ( Amer) 48 L D, Glucose 158 H, Calcium 8.6, Magnesium 2.0 D 05/21/24 04:20: WBC 7.8, RBC 4.34 L, Hgb 12.6 L, Hct 38.4 L, MCV 88.5, MCH 29.0, MCHC 32.8, RDW 19.9 H, Plt Count 395, MPV 9.9, Neut % (Auto) 64.3, Lymph % (Auto) 19.3, [place] % (Auto) 11.3 H, Eos % (Auto) 3.6, Baso % (Auto) 1.0, Neut # (Auto) 5.0, Lymph # (Auto) 1.5, [place] # (Auto) 0.9, Eos # (Auto) 0.3, Baso # (Auto) 0.1, Sodium 133 L, Potassium 5.1, Chloride 100, Carbon Dioxide 21 L, Anion Gap 17.1 H, BUN 35 H, Creatinine 1.70 H, Estimated Creat Clear -30 L, Estimated GFR 42 L, Est GFR ( Amer) 51 L, Glucose 93 D, Calcium 8.5, Magnesium 2.0, Total Bilirubin 1.4 H, AST 44, ALT 36, Alkaline Phosphatase 162 H, Total Protein 6.7, Albumin 3.7, Globulin 3.0, Albumin/Globulin Ratio 1.2 I & O for Last 24 hours: Intake & Output 05/18/24 05/19/24 05/20/24 05/21/24 23:59 23:59 23:59 23:59 Intake Total 1294 / 1294 960 / 960 Output Total 650 / 650 3025 / 3275 700 / 700 Balance -650 / -650 -1731 / -1981 260 / 260 Weight 155 lb 179 lb 10.828 oz 182 lb 1.6 oz Meds Home Medications and Allergies Home Medications ?Medication ?Instructions ?Recorded ?Confirmed ?Type apixaban 5 mg tablet (Eliquis) 5 mg PO BID 05/20/24 05/20/24 History aspirin 81 mg tablet,delayed 81 mg PO DAILY 05/20/24 05/20/24 History release atorvastatin 80 mg tablet 80 mg PO DAILY 05/20/24 05/20/24 History bumetanide 2 mg tablet 2 mg PO DAILY 05/20/24 05/20/24 History clopidogrel 75 mg tablet (Plavix) 75 mg PO DAILY 05/20/24 05/20/24 History metoprolol succinate 25 mg 25 mg PO DAILY 05/20/24 05/20/24 History tablet,extended release 24 hr potassium chloride 20 mEq 20 meq PO BID 05/20/24 05/20/24 History tablet,extended release tamsulosin 0.4 mg capsule 0.4 mg PO HS 05/20/24 05/20/24 History New Prescriptions to Start Prescriptions: Allergies Allergy/AdvReac Type Severity Reaction Status Date / Time diclofenac (DICLOFENAC) Allergy Unknown Unknown Verified 05/20/24 00:11 allergy reaction Penicillins (PENICILLINS) Allergy Unknown Hives Verified 05/20/24 00:11 propoxyphene (PROPOXYPHENE) Allergy Unknown Unknown Verified 05/20/24 00:11 allergy reaction tramadol (TRAMADOL) Allergy Unknown Vomiting Verified 05/20/24 00:11 Assessment and Plan *Assessment and plan (1) Acute on chronic HFrEF (heart failure with reduced ejection fraction): Status: Acute Category: Medical Code(s): I50.23 - Acute on chronic systolic (congestive) heart failure (2) Acute hypoxic respiratory failure: Status: Acute Category: Medical Code(s): J96.01 - Acute respiratory failure with hypoxia (3) CAD (coronary artery disease): Status: Acute Qualifiers: Associated angina: with unspecified form of angina Coronary Disease-Associated Artery/Lesion type: [place] artery [place] vs. transplanted heart: [place] heart Qualified Code(s): I25.119 - Atherosclerotic heart disease of [place] coronary artery with unspecified angina pectoris Category: Medical Code(s): I25.10 - Atherosclerotic heart disease of [place] coronary artery without angina pectoris (4) CKD stage 3a, GFR 45-59 ml/min: Status: Acute Category: Medical Code(s): N18.31 - Chronic kidney disease, stage 3a (5) Medically noncompliant: Status: Acute Category: Medical Code(s): Z91.199 - Patient's noncompliance with other medical treatment and regimen due to unspecified reason (6) LV (left ventricular) mural thrombus: Status: Acute Category: Medical Code(s): I51.3 - Intracardiac thrombosis, not elsewhere classified Plan Acute on chronic left systolic heart failure -New dx 03/2024 with late presentation GA and EF 15 to 20% -Patient left AMA without any HF meds or diuretics -Readmitted here numerous times due to vol overload and med noncompliance. -Resume Entresto. -Cont Bumex 1mg BID (probably max tolerated due to BP and Cr) - Patient cannot afford SGLT2 and no samples available at this time -BP too soft for Aldactone or BB -repeat limited ECHO CAD s/p SANAZ 03/2024 - LAD and LCX stenting 03/30 - Pt noncompliant with DAPT - discussed risk of stent thrombosis. He denies CP, no EKG changes. - Resume DAPT and Statin. No BB due to low BP LV Thrombus - noted post in setting of severe LV dysfunction - pt on Eliquis - repeat limited ECHO CKD-III - Cr 1.7 which appears to be his baseline Noncompliance - discussed again with patient that this is a severe and real risk to his life Plan: Resume GDMT, Diuresed to dry weight, consult with case management.
--- NOTE | 2024-05-21 11:17 | P.CONS_ITS ---
History of Present Illness History of present illness: Mr. Gonsales is a 54-year-old male never smoker congestive heart failure frequent hospital admissions secondary to medication noncompliance found to have left lingular what appears to be airspace disease in March 2024 supposed to follow-up as an outpatient basis lost to follow-up presented to the hospital again with worsening respiratory status pleural effusions and pulmonary was called for further evaluation and management. On this visit patient denies fevers, denies chills, denies night sweats, denies hemoptysis, denies weight loss and denies loss of appetite. [facility] Disclaimer: The information contained in this section may have been updated after the patient was seen, as this information can be updated by other users. Medical History (Updated 05/21/24 @ 13:55 by Adali Ca MD) Nodule of left lung Severe left ventricular systolic dysfunction (LVSD) Transaminitis RENAY (acute kidney injury) Anasarca LV (left ventricular) mural thrombus Acute hypoxemic respiratory failure Cardiogenic shock Non-STEMI (non-ST elevated myocardial infarction) Acute HFrEF (heart failure with reduced ejection fraction) Pneumonia Pleural effusion, bilateral Vitamin B12 deficiency Allergic rhinitis BPH (benign prostatic hyperplasia) Hyperlipidemia Insomnia Partial tear of right Achilles tendon Surgical History History of back surgery Family History Other No significant family history Social History Smoking Status: Never smoker alcohol intake: never substance use type: former substance user and heroin current occupational status: unemployed Travel in the last 8 weeks: None Review of Systems Constitutional Constitutional: Reports fatigue and Reports weakness Eyes Eyes: Denies itchy eyes and Denies loss of vision ENT Ears, Nose, Mouth, and Throat: Denies lip swelling, Denies throat swelling and Denies vertigo *Cardiovascular Cardiovascular: Reports dyspnea, Reports dyspnea on exertion, Reports leg edema, Reports orthopnea and Denies syncope *Respiratory Respiratory: Denies change in phlegm color, Reports cough, Reports dyspnea, Reports dyspnea on exertion, Denies excessive phlegm production and Denies wheezing *Gastrointestinal Gastrointestinal: Denies abdominal pain, Denies belching and Denies cramping *Musculoskeletal Musculoskeletal: Reports back pain, Reports myalgias and Reports other (No small joint swelling or Pain) *Neurologic Neurologic: Denies loss of vision, Denies syncope, Denies vertigo and Reports weakness Psychiatric Psychiatric: Denies homicidal ideation and Denies suicidal ideation Endocrine Endocrine: Reports fatigue and Denies heat intolerance Hematologic/Lymphatic Hematologic/Lymphatic: Denies easy bleeding and Denies lymphadenopathy Allergic/Immunologic Allergic/Immunologic: Denies itchy eyes, Denies lip swelling, Denies throat swelling and Denies wheezing Pulmonology Exam Inpatient Vital signs and Labs for Last 24 Hours: Temp Pulse Resp BP Pulse Ox O2 Del Method O2 Flow Rate 97.6 F 97 H 16 95/59 L 95 Room Air 2 05/21/24 08:00 05/21/24 08:00 05/21/24 08:00 05/21/24 08:00 05/21/24 08:00 05/21/24 09:00 05/21/24 03:00 Laboratory Results - last 24 hr 05/20/24 18:15: Sodium 134 L, Potassium 5.1, Chloride 98, Carbon Dioxide 24, A nion Gap 17.1 H, BUN 31 H, Creatinine 1.80 H D, Estimated Creat Clear -28 L, E stimated GFR 40 L, Est GFR ( Amer) 48 L D, Glucose 158 H, Calcium 8.6, M agnesium 2.0 D 05/21/24 04:20: WBC 7.8, RBC 4.34 L, Hgb 12.6 L, Hct 38.4 L, MCV 88.5, MCH 29.0, MCHC 32.8, RDW 19.9 H, Plt Count 395, MPV 9.9, Neut % (Auto) 64.3, Lymph % (Auto) 19.3, [place] % (Auto) 11.3 H, Eos % (Auto) 3.6, Baso % (Auto) 1.0, Neut # (Auto) 5.0, Lymph # (Auto) 1.5, [place] # (Auto) 0.9, Eos # (Auto) 0.3, Baso # (Auto) 0.1, Sodium 133 L, Potassium 5.1, Chloride 100, Carbon Dioxide 21 L, A nion Gap 17.1 H, BUN 35 H, Creatinine 1.70 H, Estimated Creat Clear -30 L, E stimated GFR 42 L, Est GFR ( Amer) 51 L, Glucose 93 D, Calcium 8.5, Magnesium 2.0, Total Bilirubin 1.4 H, AST 44, ALT 36, Alkaline Phosphatase 162 H , C-Reactive Protein 26.4 H, Total Protein 6.7, Albumin 3.7, Globulin 3.0, Albumin/Globulin Ratio 1.2 I & O for Labs for Last 24 Hours: Intake & Output 05/18/24 05/19/24 05/20/24 05/21/24 23:59 23:59 23:59 23:59 Intake Total 1294 / 1294 960 / 960 Output Total 650 / 650 3025 / 3275 700 / 700 Balance -650 / -650 -1731 / -1981 260 / 260 Weight 155 lb 179 lb 10.828 oz 182 lb 1.6 oz Constitutional: Present mild distress Head: Present normocephalic and atraumatic ENT: Present normal exam, normal oropharynx and mucous membranes moist Neck: Present normal inspection and full ROM Respiratory: Present diminished air movement and able to speak in complete sentences; Absent prolonged expiratory phase, respiratory distress or wheezes Cardiac: Present S1/S2, Tachycardia and radial pulses present GI: Present soft and distention; Absent tenderness or guarding Skin: Present intact; Absent cyanosis or jaundice Neuro: Present alert, awake and oriented x 3 Extremities: Present normal inspection; Absent clubbing or cyanosis Psychiatric: Present normal affect and cooperative Meds Home Medications and Allergies Home Medications ?Medication ?Instructions ?Recorded ?Confirmed ?Type metoprolol succinate 25 mg 25 mg PO DAILY 05/20/24 05/20/24 History tablet,extended release 24 hr apixaban 5 mg tablet (Eliquis) 5 mg PO BID 30 days #60 tabs 05/21/24 Rx aspirin 81 mg tablet,delayed 81 mg PO DAILY 30 days #30 tabs 05/21/24 Rx release atorvastatin 80 mg tablet 80 mg PO DAILY 30 days #30 tabs 05/21/24 Rx bumetanide 2 mg tablet 2 mg PO DAILY 30 days #30 tabs 05/21/24 Rx clindamycin HCl 150 mg capsule 450 mg (3 x 150 mg) PO TID 7 days 05/21/24 Rx #60 caps clopidogrel 75 mg tablet (Plavix) 75 mg PO DAILY 30 days #30 tabs 05/21/24 Rx pantoprazole 40 mg tablet,delayed 40 mg PO HS 30 days #30 tabs 05/21/24 Rx release potassium chloride 20 mEq 20 meq PO BID 30 days #60 tabs 05/21/24 Rx tablet,extended release tamsulosin 0.4 mg capsule 0.4 mg PO HS 30 days #30 caps 05/21/24 Rx New Prescriptions to Start Prescriptions: apixaban [Eliquis] Medina,Jace aspirin Medina,Jace atorvastatin Medina,Jace bumetanide Medina,Jace clindamycin HCl Medina,Jace clopidogrel [Plavix] Medina,Jace pantoprazole Medina,Jace potassium chloride Medina,Jace tamsulosin Medina,Jace Allergies Allergy/AdvReac Type Severity Reaction Status Date / Time diclofenac (DICLOFENAC) Allergy Unknown Unknown Verified 05/20/24 00:11 allergy reaction Penicillins (PENICILLINS) Allergy Unknown Hives Verified 05/20/24 00:11 propoxyphene (PROPOXYPHENE) Allergy Unknown Unknown Verified 05/20/24 00:11 allergy reaction tramadol (TRAMADOL) Allergy Unknown Vomiting Verified 05/20/24 00:11 Results Laboratory Findings 05/21/24 04:20 05/21/24 04:20 PT/INR, D-dimer PT 12.7 seconds (9.2-12.1) H 05/19/24 19:09 INR 1.17 (0.9-1.1) H 05/19/24 19:09 Abnormal lab findings: Abnormal Labs 05/19/24 05/19/24 05/19/24 01:11 19:09 19:49 RBC 4.54 L Hgb 13.0 L Hct 40.9 L RDW 20.2 H Plt Count 468 H Throckmorton % (Auto) 10.0 H PT 12.7 H INR 1.17 H VBG HCO3 22.8 L VBG Base Excess -3.0 L VBG Lactic Acid 2.3 H Sodium 135 L Carbon Dioxide Anion Gap 15.1 H BUN 25 H Creatinine 1.40 H Estimated Creat Clear Estimated GFR 53 L Est GFR ( Amer) Glucose 129 H Total Bilirubin 2.0 H Alkaline Phosphatase 164 H Troponin I 0.25 H 0.24 H C-Reactive Protein NT-Pro-B Natriuret Pep 6070 H Cholesterol LDL Cholesterol Direct HDL Cholesterol Cholesterol/HDL Ratio 05/20/24 05/20/24 05/21/24 04:09 18:15 04:20 RBC 4.34 L Hgb 12.6 L Hct 38.4 L RDW 19.9 H Plt Count Th[place]morton % (Auto) 11.3 H PT INR VBG HCO3 VBG Base Excess VBG Lactic Acid Sodium 135 L 134 L 133 L Carbon Dioxide 21 L Anion Gap 17.1 H 17.1 H BUN 26 H 31 H 35 H Creatinine 1.40 H 1.80 H D 1.70 H Estimated Creat Clear -36 L -28 L -30 L Estimated GFR 53 L 40 L 42 L Est GFR ( Amer) 48 L D 51 L Glucose 137 H 158 H Total Bilirubin 1.4 H Alkaline Phosphatase 162 H Troponin I 0.27 H C-Reactive Protein 26.4 H NT-Pro-B Natriuret Pep Cholesterol 129 L LDL Cholesterol Direct 79.02 L HDL Cholesterol 26 L Cholesterol/HDL Ratio 5.0 H Assessment and Plan *Assessment and plan (1) Nodule of left lung: Status: Acute Category: Medical Code(s): R91.1 - Solitary pulmonary nodule Plan Mr. Gonsales is a 54-year-old male never smoker congestive heart failure frequent hospital admissions secondary to medication noncompliance found to have left lingular what appears to be airspace disease in March 2024 supposed to follow-up as an outpatient basis lost to follow-up presented to the hospital again with worsening respiratory status pleural effusions and pulmonary was called for further evaluation and management. On this visit patient denies fevers, denies chills, denies night sweats, denies hemoptysis, denies weight loss and denies loss of appetite. Upon reviewing the concerning left lingular nodule which appears to be more of an airspace disease around 5 cm in size around March 25, 2024 appear to be decreasing in size with increased density around 4 cm in size on his CT scan from 05/11/2024. Overall decrease in size appears more of an infectious than malignant etiology at this point of time. No scans before March 2024 for comparison. She previously completed a course of levofloxacin in March 2024. Plan: Follow with serum fungal serologies CRP and serum beta D glucan Clindamycin to complete a total of 7-day course Follow as an outpatient basis with repeat imaging and further determine the need for biopsy. No significant mediastinal/hilar lymphadenopathy appreciated.
--- NOTE | 2024-05-21 12:01 | PC.NURSE ---
Patient removed ekg monitor tech and is getting dressed. Discussed fact that there are no discharge orders yet so heart monitor should stay on until discharge. Patient declined to put ekg monitor tech back on
[2024-05-21] MEDS: CLINDAMYCIN 150MG CAPSULE 450 MG PO (12:29)
--- NOTE | 2024-05-21 12:39 | HMH.PTEV ---
Physical Therapy Evaluation Rehab PT IP Evaluation Start: 05/20/24 08:02 Freq: ONCE Status: Active Protocol: Document 05/21/24 12:37 [place] (Rec: 05/21/24 12:39 [place] [id number]) Subjective/History History History Pt oriented x 3 on arrival. Pt agreeable to engage in therapy evaluation. Pt was admitted to [facility] on 05/20/24 due to CHF. History and physical: This is a 54-year-old male well known to our service with a history of severe left ventricular systolic dysfunction, left ventricular mural thrombosis, coronary artery disease status post PCI , cardiogenic shock, chronic kidney disease, acute kidney injury, hyperlipidemia, benign prostatic hyperplasia, allergic rhinitis, vitamin B12 deficiency, transaminitis, pleural effusion, and insomnia , who presents to the emergency department with worsening shortness of breath and lower extremity edema. He was discharged five days ago after a heart failure exacerbation with instructions to continue Bumex 2 mg orally at home, but he has been unable to obtain his medications due to insurance issues. Since discharge, he has had progressive bilateral lower extremity edema up to his knees, worsening orthopnea requiring him to sleep upright, and increasing dyspnea with exertion to the point that he can no longer perform activities of daily living. He denies fevers, cough, chest pain, numbness, weakness, tingling, vomiting, or diarrhea and reports adequate oral intake. On initial evaluation, the patient was tachypneic, requiring 6L oxygen, but was able to be weaned off. He was noted to be well-perfused but speaking in short sentences due to dyspnea. Auscultation revealed rhonchi at the lung bases, and ECG demonstrated sinus tachycardia with left atrial enlargement and an incomplete right bundle branch block, but no acute ischemic changes. Laboratory results showed mild anemia with a hemoglobin of 13.0, elevated creatinine at 1 .4, similar to his baseline, mild lactic acidosis at 2.3, and an NT-proBNP of 6,070, which is lower than his baseline of 8,000. Troponin was 0.25 on initial draw and 0 .24 on repeat, which is down trending compared to prior admissions, making an acute coronary syndrome less likely. Chest X-ray revealed a lingular mass-like consolidation that has been previously seen on prior CTA but appears more prominent today, raising suspicion for a persistent underlying mass. Given his history of heart failure, medication noncompliance, and progressive symptoms, the leading concern is a recurrent CHF exacerbation, though the possibility of pleural effusion, underlying infection , and further assessment of the lung mass remain differentials requiring additional workup. The patient received IV Bumex for treatment, and further evaluation, including repeat troponins and additional imaging, is planned. Subjective Subjective Pt agreeable to PT evaluation. He reports that he lives at home by himself in house with no stairs. He reports that he is completely independent. He reports that he ambulates without an assistive device. He denies falls. He reports independence with all ADLs. New diagnosis of cancer in past 12 No months? Rehab PT IP Eval Objective Appearance Patient Behavior Appropriate,Patient Baseline Patient Orientation Person,Place,Time Difficulty following instructions none Speech Pattern Clear,Patient Baseline Ambulation Patient Able to Ambulate Yes Ambulation Observation IP General Gait Pattern Observation No Deviations/Normal Ambulation Distance (feet) 30 Ambulation Assistive Device None Ambulation Ability Independent Balance Ability to Arise Able, w/o using arms Sitting Balance Steady, safe Standing Balance Narrow stance w/o support Dynamic Sitting Balance Ability Normal Dynamic Standing Balance Ability Normal Transfers Bed Transfer Ability Independent Chair Transfer Ability Independent Sit to Stand Bed Transfer Ability Independent Sit to Stand Chair Transfer Ability Independent Rehab PT IP prob,goals,plan Problems Date of Evaluation: 05/21/24 Discharge Plan PT Discharge Plan PT is recommending discharge to home when deemed medically stable. Skilled PT is not indicated for this pt during his acute stay. Eval Complexity Eval Charge Codes 25680 - Low Complexity PHYSICIAN CERTIFICATION: I certify the specified therapy services for Manuel Gonsales are required, authorized, and reviewed every 30 days.
--- NOTE | 2024-05-21 13:52 | PC.NURSE ---
TECH NOTE; NOTIFIED NURSE OF 1200 VITAL SIGNS AND THAT I WAS UNABLE TO OBTAIN ORAL OR AXILLARY TEMPERATURE Kathleen BEDOYA, SRNA
--- NOTE | 2024-05-21 15:08 | PC.NURSE ---
Patient alert and oriented. VSS. On room air. Dyspnea improved this shift. Up ad eulalia. Voiding adequately. Denies pain. Currently trying to ensure patient has all required medications before discharge
--- NOTE | 2024-05-21 17:09 | PC.NURSE ---
PT TOLD EZEQUIEL ROBERTS WITH CASE MANAGEMENT THAT HE WANTED TO LEAVE AMA. EZEQUIEL ROBERTS CONTACTED DR. GRACIA WHO CAME TO BEDSIDE AND EDUCATED THE PT ON RISKS OF LEAVING THE HOSPITAL AMA INCLUDING . PT IS AWARE OF THE RISKS OF LEAVING.
--- NOTE | 2024-05-21 21:37 | P.DS_ITS ---
General Admission date:: 05/19/24 Discharge date: 05/21/24 HPI HPI HPI: This is a 54-year-old male well known to our service with a history of severe left ventricular systolic dysfunction, left ventricular mural thrombosis, coronary artery disease status post PCI, cardiogenic shock, chronic kidney disease, acute kidney injury, hyperlipidemia, benign prostatic hyperplasia, allergic rhinitis, vitamin B12 deficiency, transaminitis, pleural effusion, and insomnia, who presents to the emergency department with worsening shortness of breath and lower extremity edema. He was discharged five days ago after a heart failure exacerbation with instructions to continue Bumex 2 mg orally at home, but he has been unable to obtain his medications due to insurance issues. Since discharge, he has had progressive bilateral lower extremity edema up to his knees, worsening orthopnea requiring him to sleep upright, and increasing dyspnea with exertion to the point that he can no longer perform activities of d aily living. He denies fevers, cough, chest pain, numbness, weakness, tingling, vomiting, or diarrhea and reports adequate oral intake. On initial evaluation, the patient was tachypneic, requiring 6L oxygen, but was able to be weaned off. He was noted to be well-perfused but speaking in short sentences due to dyspnea. Auscultation revealed rhonchi at the lung bases, and ECG demonstrated sinus tachycardia with left atrial enlargement and an incomplete right bundle branch block, but no acute ischemic changes. Laboratory results showed mild anemia with a hemoglobin of 13.0, elevated creatinine at 1.4, similar to his baseline, mild lactic acidosis at 2.3, and an NT-proBNP of 6,070, which is lower than his baseline of 8,000. Troponin was 0.25 on initial draw and 0.24 on repeat, which is downtrending compared to prior admissions, making an acute coronary syndrome less likely. Chest X-ray revealed a lingular mass-like consolidation that has been previously seen on prior CTA but appears more prominent today, raising suspicion for a persistent underlying mass. Given his history of heart failure, medication noncompliance, and progressive symptoms, the leading concern is a recurrent CHF exacerbation, though the possibility of pleural effusion, underlying infection, and further assessment of the lung mass remain differentials requiring additional workup. The patient received IV Bumex for treatment, and further evaluation, including repeat troponins and additional imaging, is planned. Hospital Course Hospital Course Hospital Course: Manuel Gonsales is a 54-year-old disabled gentleman with his 3 of severe heart failure with reduced ejection fraction, CAD, medical noncompliance. Also found to have lung mass approximately 3 to 4 cm in diameter. Admitted due to medical noncompliance as he has been without his meds for at least a month. Developed acute on chronic heart failure exacerbation with volume overload. Pulmonology and cardiology were consulted to assist with care. Medications were resumed and patient was diuresed. Had improvement in symptoms. Further adjustments made to meds with resumption of Entresto. Goal was to monitor for 24 more hours to assess for tolerance. Case management has assisted with insurance issues as patient only has Medicare but no drug benefit. Multiple discussions about the need for him to reach out to Medicare to get this reinstated as he lost his benefit after being incarcerated. After much discussion however, patient elected to go home and did not want to stay any longer for treatment. Patient discharged under his own direction (AGAINST MEDICAL ADVICE). High risk for readmission due to medical noncompliance and difficulty obtaining meds. Problems addressed as follows: Acute on chronic eeart failure with reduced ejection fraction. CAD status post SANAZ 03/2024 LV thrombus -New dx 03/2024 with late presentation NM and EF 15 to 20%. Initiated on diuretics. Responded well. Continue Bumex 1 mg twice daily. Goal was to initiate Entresto 24/26 mg twice daily. Patient left before initiating this. Medications had been sent except for beta-lexii and Entresto. Instructed to pick them up. Case management assisted as best as possible to try and coordinate insurance to assist with coverage. Patient did not want to wait until morning for assistance with calling Medicare. Initiated his own discharge and called a friend to pick him up. Medic prior to discharge include Eliquis 5 mg twice daily, aspirin 81 mg daily, Lipitor 80 mg daily, Bumex 2 mg once daily, Plavix 75 mg daily, pantoprazole 40 mg nightly, potassium 20 mEq twice daily, and tamsulosin 0.4 mg daily. Encouraged to follow-up with pulmonology and cardiology. Euvolemic at time of discharge. -Counseled on risks of not taking DAPT therapy along with his anticoagulant in the setting of stents in March and left ventricular thrombus. Patient has not been on them consistently for the past month and a half. High risk for in- stent thrombosis and heart attack. Patient risking life and limb by self- directed discharge. CKD-III - Cr 1.7 which appears to be his baseline. BUN 35. Noncompliance - discussed again with patient that this is a severe and real risk to his life. Case management assisted with care. Patient elected to discharge on his own. #Left mid lung infiltrate versus mass ? Pulmonology consulted on patient. Recommended clindamycin for 7 days due to concern for atypical infection versus mass. Needs follow-up with serial imaging in 4 to 8 weeks to evaluate for improvement. Imaging from 6 to 8 weeks ago showed 4-1/2 cm mass, it is now 3 cm in diameter. Becoming more consolidated. Suspicious for infection versus cancer. #BPH ? Continue home tamsulosin 0.4 mg daily Total time spent on discharge: 32 minutes on chart review, counseling, documentation, and direct care with patient. Exam Data for Last 24 hours Vital signs and Labs for Last 24 Hours: Temp Pulse Resp BP Pulse Ox O2 Del Method O2 Flow Rate 97.6 F 82 16 96/66 L 97 Room Air 2 05/21/24 08:00 05/21/24 16:00 05/21/24 16:00 05/21/24 16:00 05/21/24 16:00 05/21/24 17:00 05/21/24 03:00 Laboratory Results - last 24 hr 05/21/24 04:20: WBC 7.8, RBC 4.34 L, Hgb 12.6 L, Hct 38.4 L, MCV 88.5, MCH 29.0, MCHC 32.8, RDW 19.9 H, Plt Count 395, MPV 9.9, Neut % (Auto) 64.3, Lymph % (Auto) 19.3, [place] % (Auto) 11.3 H, Eos % (Auto) 3.6, Baso % (Auto) 1.0, Neut # (Auto) 5.0, Lymph # (Auto) 1.5, [place] # (Auto) 0.9, Eos # (Auto) 0.3, Baso # (Auto) 0.1, Sodium 133 L, Potassium 5.1, Chloride 100, Carbon Dioxide 21 L, Anion Gap 17.1 H, BUN 35 H, Creatinine 1.70 H, Estimated Creat Clear -30 L, Estimated GFR 42 L, Est GFR ( Amer) 51 L, Glucose 93 D, Calcium 8.5, Magnesium 2.0, Total Bilirubin 1.4 H, AST 44, ALT 36, Alkaline Phosphatase 162 H , C-Reactive Protein 26.4 H, Total Protein 6.7, Albumin 3.7, Globulin 3.0, Albumin/Globulin Ratio 1.2 I & O for Last 24 hours: Intake & Output 05/18/24 05/19/24 05/20/24 05/21/24 23:59 23:59 23:59 23:59 Intake Total 1294 / 1294 1920 / 1920 Output Total 650 / 650 3025 / 3275 1200 / 1200 Balance -650 / -650 -1731 / -1981 720 / 720 Weight 70.307 kg 81.5 kg 82.599 kg Constitutional Constitutional: no acute distress *Routine HEENT Exam Head: Present normocephalic Eye: Present EOMI and PERRL ENT: Present mucous membranes moist *Routine Neck Exam Neck: Present supple; Absent lymphadenopathy *Routine Respiratory Exam Respiratory: Present CTA bilaterally *Routine Cardiovascular Exam Cardiovascular: Present RRR *Routine Abdominal Exam Abdominal: Present soft and normoactive bowel sounds; Absent tenderness *Routine Extremities Exam Extremities: Present edema; Absent cyanosis or clubbing Comments: Lower extremity pitting edema 1+. *Routine Skin Exam Skin: Present warm; Absent rash *Routine Neurological Exam Neurological: Present alert and oriented X3 Routine Psychiatric Exam Psychiatric: Present normal affect; Absent good insight or good judgment Results Data Completed and Pending Labs on day of discharge: Labs from last 24 hours 05/21/24 04:20 WBC 7.8 RBC 4.34 L Hgb 12.6 L Hct 38.4 L MCV 88.5 MCH 29.0 MCHC 32.8 RDW 19.9 H Plt Count 395 MPV 9.9 Neut % (Auto) 64.3 Lymph % (Auto) 19.3 Rutherford % (Auto) 11.3 H Eos % (Auto) 3.6 Baso % (Auto) 1.0 Neut # (Auto) 5.0 Lymph # (Auto) 1.5 [place]uther[place] # (Auto) 0.9 Eos # (Auto) 0.3 Baso # (Auto) 0.1 Sodium 133 L Potassium 5.1 Chloride 100 Carbon Dioxide 21 L Anion Gap 17.1 H BUN 35 H Creatinine 1.70 H Estimated Creat Clear -30 L Estimated GFR 42 L Est GFR ( Amer) 51 L Glucose 93 D Calcium 8.5 Magnesium 2.0 Total Bilirubin 1.4 H AST 44 ALT 36 Alkaline Phosphatase 162 H C-Reactive Protein 26.4 H Total Protein 6.7 Albumin 3.7 Globulin 3.0 Albumin/Globulin Ratio 1.2 DS: Diagnosis Discharge Diagnosis (1) Nodule of left lung: Status: Acute Code(s): R91.1 - Solitary pulmonary nodule Meds Home Medications and Allergies Home Medications ?Medication ?Instructions ?Recorded ?Confirmed ?Type metoprolol succinate 25 mg 25 mg PO DAILY 05/20/24 05/20/24 History tablet,extended release 24 hr apixaban 5 mg tablet (Eliquis) 5 mg PO BID 30 days #60 tabs 05/21/24 Rx aspirin 81 mg tablet,delayed 81 mg PO DAILY 30 days #30 tabs 05/21/24 Rx release atorvastatin 80 mg tablet 80 mg PO DAILY 30 days #30 tabs 05/21/24 Rx bumetanide 2 mg tablet 2 mg PO DAILY 30 days #30 tabs 05/21/24 Rx clindamycin HCl 150 mg capsule 450 mg (3 x 150 mg) PO TID 7 days 05/21/24 Rx #60 caps clopidogrel 75 mg tablet (Plavix) 75 mg PO DAILY 30 days #30 tabs 05/21/24 Rx pantoprazole 40 mg tablet,delayed 40 mg PO HS 30 days #30 tabs 05/21/24 Rx release potassium chloride 20 mEq 20 meq PO BID 30 days #60 tabs 05/21/24 Rx tablet,extended release tamsulosin 0.4 mg capsule 0.4 mg PO HS 30 days #30 caps 05/21/24 Rx New Prescriptions to Start Prescriptions: apixaban [Eliquis] Jace Haney aspirin Medina,Jace atorvastatin Medina,Jace bumetanide Medina,Jace clindamycin HCl Jace Haney clopidogrel [Plavix] Jace Haney pantoprazole Medina,Jace potassium chloride Medina,Jace tamsulosin Medina,Jace Allergies Allergy/AdvReac Type Severity Reaction Status Date / Time diclofenac (DICLOFENAC) Allergy Unknown Unknown Verified 05/20/24 00:11 allergy reaction Penicillins (PENICILLINS) Allergy Unknown Hives Verified 05/20/24 00:11 propoxyphene (PROPOXYPHENE) Allergy Unknown Unknown Verified 05/20/24 00:11 allergy reaction tramadol (TRAMADOL) Allergy Unknown Vomiting Verified 05/20/24 00:11 Discharge Plan Disposition Patient Disposition: Left Against Medical Advice Condition: Fair Patient Discharge Instructions Print Language: Persian Providers Admit Provider: Jace Haney Attending Provider: Jace Haney
[2024-05-23 16:10] LABS: Clinical Relevance Notes (.); Disclaimer Notes (.); Fungitell Value 46.863 pg/mL (.); Interpretation Notes (.); Result Negative (.)
[2024-05-24 19:12] LABS: Aspergillus flavus Negative (Neg:<1:1); Aspergillus fumigatus Negative (Neg:<1:1); Aspergillus niger Negative (Neg:<1:1); Blastomyces Antibody Negative (Neg:<1:1); Histoplasma Antibody Quant Negative (Neg:<1:1)
== END 2024-05-21 17:30 | disposition left against medical advice (07) | DRG 293 ==
LOC: ER 19:59 → ICU 23:41 → 2ND 05-20 12:43
PROVIDERS: Internal Medicine Pulmonary Disease; Nurse Practitioner Family; Admitting Provider Internal Medicine Adolescent Medicine; Emergency Provider Emergency Medicine; Visit Provider Internal Medicine Adolescent Medicine
DX: I50.23 Acute on chronic systolic (congestive) heart failure (principal); R60.0 Localized edema; E78.5 Hyperlipidemia, unspecified; R91.1 Solitary pulmonary nodule; N18.30 Chronic kidney disease, stage 3 unspecified; I25.2 Old myocardial infarction; I51.3 Intracardiac thrombosis, not elsewhere classified; I25.10 Atherosclerotic heart disease of native coronary artery without angina pectoris; N40.0 Benign prostatic hyperplasia without lower urinary tract symptoms; Z91.198 Patient's noncompliance with other medical treatment and regimen for other reason; Z95.5 Presence of coronary angioplasty implant and graft
CPT/HCPCS: 36415; 71045; 80048; 80053; 80061; 82803; 83605; 83735; 83880; 84100; 84484; 85025; 85610; 86140; 86606; 86612; 86698; 87449; 87636; 93005; 93308; 94640; 97161; 97165; 99291; J1939; J3475; J7620; Q9957

== ENCOUNTER 2024-06-14 00:16 | Observation (INO) | payer MEDICARE, MEDICAID, SELFPAY ==
[2024-06-14] VITALS (33 sets, daily range): BP systolic 84–147; BP diastolic 56–106; PULSE 86–125; RESP 14–36; TEMP 35.8–37.2; O2SAT 90–100; BMI 26.6; BMI 27.3; BMI 27.6
--- NOTE | 2024-06-14 00:38 | XR_ITS ---
PROCEDURE INFORMATION: Exam: XR Chest Exam date and time: 06/14/2024 12:54 AM Age: 54 years old Clinical indication: Shortness of breath; Additional info: SOA, hf TECHNIQUE: Imaging protocol: Radiologic exam of the chest. Views: 1 view. COMPARISON: CR XR CHEST PORTABLE 05/21/2024 6:45 AM FINDINGS: Lungs: Stable known nodular lesion in the periphery of the lingula. Mild right lower lobe atelectasis. Pleural spaces: Unremarkable. No pleural effusion. No pneumothorax. Heart/Mediastinum: Cardiomegaly. Coronary stents. Bones/joints: Unremarkable. IMPRESSION: No acute findings.
--- NOTE | 2024-06-14 00:39 | HMH.EDGENADL ---
Discharge Plan Disposition Patient Disposition: Admitted Chief Complaint: Shortness of Breath/Dyspnea Prescriptions Prescriptions: No Action metoprolol succinate 25 mg Tablet Extended Release 24 Hr 25 mg PO DAILY clindamycin HCl 150 mg Capsule 450 mg PO TID 7 Days Qty: 60 0RF pantoprazole 40 mg Tablet,Delayed Release (Dr/Ec) 40 mg PO HS 30 Days Qty: 30 0RF atorvastatin 80 mg Tablet 80 mg PO DAILY 30 Days Qty: 30 0RF bumetanide 2 mg Tablet 2 mg PO DAILY 30 Days Qty: 30 0RF clopidogrel [Plavix] 75 mg Tablet 75 mg PO DAILY 30 Days Qty: 30 0RF aspirin 81 mg Tablet,Delayed Release (Dr/Ec) 81 mg PO DAILY 30 Days Qty: 30 0RF tamsulosin 0.4 mg Capsule 0.4 mg PO HS 30 Days Qty: 30 0RF Eliquis 5 mg Tablet 5 mg PO BID 30 Days Qty: 60 0RF potassium chloride 20 mEq Tablet Extended Release 20 meq PO BID 30 Days Qty: 60 0RF Referrals Follow up/Referrals: Provider,Referral, MD [Primary Care Provider] - See instructions Clinical Impressions Clinical Impression: Severe left ventricular systolic dysfunction (LVSD), Bilateral edema of lower extremity, Pneumonia Print Language Print Language: Guatemalan Discharge ED Provider: Murray Brown General Adult HPI General Chief complaint: Shortness of Breath/Dyspnea Stated complaint: SOB Time Seen by Provider: 06/14/24 00:20 History of Present Illness HPI narrative: 54-year-old male with history of severe heart failure presents for worsening lower extremity swelling, abdominal swelling, shortness of breath, cough. He reports been worsening over the last few days. Specifically the dry cough. He reports he is not able to go more than a few steps without getting severely short of breath. Denies fever or other illness at home. Reports he has been taking his medications as prescribed. Related Data Home Medications ?Medication ?Instructions ?Recorded ?Confirmed metoprolol succinate 25 mg 25 mg PO DAILY 05/20/24 06/14/24 tablet,extended release 24 hr Previous Rx's ?Medication ?Instructions ?Recorded apixaban 5 mg tablet (Eliquis) 5 mg PO BID 30 days #60 tabs 05/21/24 aspirin 81 mg tablet,delayed 81 mg PO DAILY 30 days #30 tabs 05/21/24 release atorvastatin 80 mg tablet 80 mg PO DAILY 30 days #30 tabs 05/21/24 bumetanide 2 mg tablet 2 mg PO DAILY 30 days #30 tabs 05/21/24 clindamycin HCl 150 mg capsule 450 mg (3 x 150 mg) PO TID 7 days 05/21/24 #60 caps clopidogrel 75 mg tablet (Plavix) 75 mg PO DAILY 30 days #30 tabs 05/21/24 pantoprazole 40 mg tablet,delayed 40 mg PO HS 30 days #30 tabs 05/21/24 release potassium chloride 20 mEq 20 meq PO BID 30 days #60 tabs 05/21/24 tablet,extended release tamsulosin 0.4 mg capsule 0.4 mg PO HS 30 days #30 caps 05/21/24 Allergies Allergy/AdvReac Type Severity Reaction Status Date / Time diclofenac (DICLOFENAC) Allergy Unknown Unknown Verified 05/20/24 00:11 allergy reaction Penicillins (PENICILLINS) Allergy Unknown Hives Verified 05/20/24 00:11 propoxyphene (PROPOXYPHENE) Allergy Unknown Unknown Verified 05/20/24 00:11 allergy reaction tramadol (TRAMADOL) Allergy Unknown Vomiting Verified 05/20/24 00:11 [facility] Disclaimer: The information contained in this section may have been updated after the patient was seen, as this information can be updated by other users. Medical History (Updated 06/14/24 @ 01:46 by Murray Brown MD) Chest pain Pulmonary infiltrate Hyponatremia Medically noncompliant Bed bug bite CHF (congestive heart failure) Right atrial thrombus Acute decompensated heart failure Fatigue Nodule of left lung Severe left ventricular systolic dysfunction (LVSD) Transaminitis RENAY (acute kidney injury) Anasarca LV (left ventricular) mural thrombus Acute hypoxemic respiratory failure Cardiogenic shock Non-STEMI (non-ST elevated myocardial infarction) Acute HFrEF (heart failure with reduced ejection fraction) Pneumonia Pleural effusion, bilateral Vitamin B12 deficiency Allergic rhinitis BPH (benign prostatic hyperplasia) Hyperlipidemia Insomnia Partial tear of right Achilles tendon Surgical History History of back surgery Family History Other No significant family history Social History Smoking Status: Current some day smoker tobacco type: smokeless tobacco alcohol intake: never substance use type: former substance user and heroin current occupational status: unemployed Travel in the last 8 weeks: None Other Medical History Have you received the Flu Vaccine for this season: No Have you received the Pneumonia Vaccine: No ROS Obtained: Yes All systems reviewed & no additional complaints except as documented Physical Exam General General appearance: alert and anxious Head Head exam: atraumatic and normocephalic Eye Eye exam: Present normal appearance, PERRL and EOMI ENT ENT exam: Present normal oropharynx and normal external ear exam Neck Neck exam: Present normal inspection and full ROM Chest Chest inspection: Present normal inspection and symmetric chest wall rise; Absent tenderness Respiratory Respiratory exam: Present normal lung sounds bilaterally; Absent respiratory distress Cardiovascular Cardiovascular exam: Present normal rhythm and tachycardia Abdominal Exam Abdominal exam: Present soft and distention; Absent tenderness or guarding Extremities Exam Extremities exam: Present normal inspection and edema (Pitting edema to the thigh); Absent joint swelling Back Exam Back exam: Present normal inspection; Absent tenderness Neurological Exam Neurological exam: Present alert and oriented X3; Absent motor sensory deficit Psychiatric Psychiatric exam: Present normal affect and normal mood Skin Skin exam: Present warm, dry and normal color Lymphatic Lymphatic Findings: no adenopathy Medical Decision Making Medical Records Medical records reviewed: Yes I reviewed the patient's medical records. Screening: Per USPSTF and CDC recommendations, given the prevalence of disease in our region, it is our hospital?s policy to screen for HIV and viral Hepatitis for all patients aged 18 and over and those with ongoing risk factors. Matty Inquiry Pt receiving controlled substance: No Matty was queried for this patient: No Vital Signs: 06/14/24 00:30 06/14/24 00:33 06/14/24 01:00 Temperature 98.9 F Temperature Source Oral Pulse Rate Pulse Rate [Left] 121 H Respiratory Rate 26 H 25 H 29 H Blood Pressure 119/90 127/94 H Blood Pressure [Right Arm] 119/90 Blood Pressure Mean 105 Blood Pressure Mean [Right Arm] 99 02 Sat by Pulse Oximetry 95 Oxygen Delivery Method Nasal Cannula Nasal Cannula Oxygen Flow Rate (LPM) 2 2 06/14/24 01:15 06/14/24 01:30 Temperature Temperature Source Pulse Rate 119 H 124 H Pulse Rate [Left] Respiratory Rate 28 H 36 H Blood Pressure 135/102 H Blood Pressure [Right Arm] Blood Pressure Mean Blood Pressure Mean [Right Arm] 02 Sat by Pulse Oximetry 100 98 Oxygen Delivery Method Nasal Cannula Oxygen Flow Rate (LPM) 2 Lab Data Lab results reviewed: Yes I reviewed the patient's lab results. Lab Results 06/14/24 00:37: VBG pH 7.32, VBG pCO2 40.0, VBG pO2 38.6, VBG HCO3 20.1 L, VBG Total CO2 21.3 L, VBG O2 Saturation 64.1, VBG Base Excess -6.1 L, VBG Lactic Acid 1.7 06/14/24 00:45: WBC 7.3, RBC 4.16 L, Hgb 12.0 L, Hct 37.1 L, MCV 89.2, MCH 28.8, MCHC 32.3, RDW 19.5 H, Plt Count 441 H, MPV 9.6, Neut % (Auto) 69.5, Lymph % (Auto) 17.4, [place] % (Auto) 9.7 H, Eos % (Auto) 1.9, Baso % (Auto) 1.1, Neut # (Auto) 5.1, Lymph # (Auto) 1.3, [place] # (Auto) 0.7, Eos # (Auto) 0.1, Baso # (Auto) 0.1, Sodium 135 L, Potassium 3.5, Chloride 104, Carbon Dioxide 22, Anion Gap 12.5, BUN 25 H, Creatinine 1.60 H, Estimated Creat Clear 58, Estimated GFR 45 L, Est GFR ( Amer) 55 L, Glucose 112 H, Calcium 9.2, Phosphorus 4.6 H, Magnesium 1.7, Total Bilirubin 1.7 H, AST 40, ALT 35, Alkaline Phosphatase 170 H, Troponin I 0.04 H, NT-Pro-B Natriuret Pep 6060 H, Total Protein 7.0, Albumin 4.3, Globulin 2.7, Albumin/Globulin Ratio 1.6 06/14/24 00:45 06/14/24 00:45 Orders (Tests/Meds): ED MEDICATIONS Generic Name Dose Route Start Last Admin Trade Name Freq PRN Reason Stop Dose Admin Ceftriaxone Sodium 1 gm/ 50 mls @ 100 mls/hr 06/14/24 01:28 Sodium Chloride IV 06/14/24 01:57 ONCE ONE Azithromycin 500 mg/ Sodium 250 mls @ 250 mls/hr 06/14/24 01:29 Chloride IV 06/14/24 01:30 ONCE ONE Discontinued Medications Generic Name Dose Route Start Last Admin Trade Name Claudio PRN Reason Stop Dose Admin Bumetanide 2 mg 06/14/24 00:37 06/14/24 01:00 Bumetanide 1mg/4ml Vial IV 06/14/24 00:38 2 mg ONCE ONE Administration ORDERS Category Date Time Status CXR --portable [XR chest portable] Stat Exams 06/14/24 00:38 Completed BNP [NT Pro Brain Natriuretic Pep.] Stat Lab 06/14/24 00:45 Completed CBC w/Auto Diff [Complete Blood Count Auto Diff] Stat Lab 06/14/24 00:45 Completed CMP [Comprehensive Metabolic Panel] Stat Lab 06/14/24 00:45 Completed MAG [Magnesium] Stat Lab 06/14/24 00:45 Completed Phosphorous Stat Lab 06/14/24 00:45 Completed Trop I [Troponin I] Stat Lab 06/14/24 00:45 Completed Troponin I Q3H Lab 06/14/24 03:45 Ordered Troponin I Q3H Lab 06/14/24 06:45 Ordered UA [Urinalysis and Microscopic] Stat Lab 06/14/24 00:53 Ordered Blood Culture Stat Micro 06/14/24 01:28 Ordered VBG [Venous Blood Gas] Stat RT 06/14/24 00:37 Completed Tissue Perfus/Sepsis Re-Eval Sepsis Re-Evaluation Performed: Yes Date Performed: 06/14/24 Time Performed: 01:43 HEART Score History (anamnesis): Slightly suspicious ECG: Normal Age: 45-65 years Risk factors: Atherosclerosis history Troponin: 1-3x normal limit HEART Score: 4 Medical Decision Narrative: 54-year-old male with history of severe heart failure presents for worsening shortness of breath, lower extremity swelling, abdominal swelling, dry cough. History was obtained via interactive discussion with patient, EMS, chart review. On arrival, patient is afebrile, tachycardic, satting 95 on room air at rest, normotensive, moving all extremities spontaneously. Full physical exam performed and significant for pitting edema up to the thigh, abdominal distention without tenderness. Bedside cardiac ultrasound was performed, patient has severely depressed EF, no pericardial effusion, moderate B-lines on lung exam Differential includes but is not limited to acute on chronic heart failure, renal failure, cardiac tamponade, pneumothorax, pneumonia, ACS, influenza. Patient was given 2 of Bumex for symptomatic management and correction of underlying abnormalities. Workup initiated including chest x-ray EKG CBC CMP mag Phos troponin BNP UA bedside ultrasound. On re-evaluation, patient [remains afebrile, HD stable.] Laboratory workup independently interpreted by me and significant for mildly elevated troponin, improved from all of his prior visits. BNP stable from prior visits. No significant electrolyte derangement or renal dysfunction compared to baseline.. Imaging independently interpreted by me and significant for subtle right lower lung field opacity compared to prior chest x-ray which on my assessment may represent pneumonia. See radiology read for full review of final results. EKG independently interpreted by me and significant for sinus tachycardia, rate of 119, low QRS voltage, no significant ST elevation. Given patient history, exam and workup, patient's presentation most likely represents acute on chronic heart failure and possible pneumonia. Blood cultures were obtained and patient was initiated on ceftriaxone and azithromycin for coverage of pneumonia. Patient was not given any fluids as he is already volume overloaded. Procedures Risk/Benefits of Procedure(s) Were Explained: Yes Limited Ultrasound Indication:: Limited cardiac ultrasound Indication: Shortness of air, volume overload Views Obtained: PLAX, PSAX, Apical 4-chamber, Subxiphoid Findings: Severely depressed EF and four-chamber dilation, no pericardial effusion Impression: Severely depressed EF and four-chamber dilation, no pericardial effusion Images were saved to permanent archive The study was technically adequate This study was performed by ks, and I personally interpreted all images/videos. Views:: Limited lung ultrasound A focused ultrasound exam of the pleural spaces was performed to evaluate for pneumothorax, pulmonary edema, pleural effusion and/or consolidation. The ultrasound was performed with the following indications, as noted in the H&P: Shortness of breath, volume overload Identified structures: Bilateral thoracic cavities were examined. Findings: Lung sliding: -Present bilaterally B-lines: -Present bilaterally and moderate quantity Impression: Moderate B-lines present, no pneumothorax Images were saved to permanent archive The study was technically adequate [facility] [id number] This study was performed by ks, and I personally interpreted all images/videos. Critical Care Critical Care Time Critical Care Time: No
--- NOTE | 2024-06-14 00:39 | PC.NURSE ---
Patient was placed on 2 L of O2 via nasal cannula.
--- NOTE | 2024-06-14 00:52 | ECG_ITS ---
APPROVED REPORT Exam: Resting ECG HR:119 bpm ECG Measurements Heart Rate 119 AXES CA 128 P 70 QRSd 89 QRS -41 QT 339 T 97 QTc 410 Conclusion SINUS TACHYCARDIA POSSIBLE LEFT ATRIAL ENLARGEMENT [-0.1mV P-WAVE IN V1/V2] LEFT AXIS DEVIATION [QRS AXIS < -30] LOW QRS VOLTAGE IN EXTREMITY LEADS [QRS DEFLECTION < 0.5 mV IN LIMB LEADS] POSSIBLE ANTERIOR MYOCARDIAL INFARCTION , OF INDETERMINATE AGE [30 ms Q WAVE IN V3/V4, OR R < 0.2 mV IN V4] ABNORMAL ECG UNCONFIRMED REPORT Electronically signed by : HOLDEN MAGALLON, 06/14/2024 06:48:48
[2024-06-14 00:56] LABS: Basophils # 0.1 K/mm3 (0-0.2); Basophils % 1.1 % (0.1-2.0); Eosinophils # 0.1 K/mm3 (0.0-0.4); Eosinophils % 1.9 % (0.1-12.0); Hematocrit 37.1 % (42.0-52.0); Lymphocytes # 1.3 K/mm3 (0.7-4.5); Lymphocytes % 17.4 % (10-50); Mean Corpuscular HGB Conc 32.3 g/dL (31.8-35.4); Mean Corpuscular Hemoglobin 28.8 pg (27.0-31.2); Mean Corpuscular Volume 89.2 fl (80-94); Mean Platelet Volume 9.6 fl (7.4-10.4); Monocytes # 0.7 K/mm3 (0.1-1.0); Monocytes % 9.7 % (1.7-9.3); Neutrophils # 5.1 K/mm3 (1.8-7.8); Neutrophils % 69.5 % (37.0-80.0); Platelet Count 441 K/mm3 (142-424); Red Blood Count 4.16 M/mm3 (4.60-6.20); Red Cell Distribution Width 19.5 % (11.5-17.5); White Blood Count 7.3 K/mm3 (4.8-10.8)
[2024-06-14] MEDS: BUMETANIDE 1MG/4ML VIAL 2 MG IV ×3 (01:00→16:39)
[2024-06-14 01:05] LABS: Albumin Level 4.3 g/dl (3.5-5.0); Chloride 104 mmol/L (98-107); Sodium 135 mmol/L (136-145)
[2024-06-14 01:05] LABS: Lactate Venous 1.7 mmol/L (0.4-2.0); VBG Base Excess -6.1 mmol/L (-2.4-2.3); VBG HCO3 20.1 mmol/L (23-30); VBG Oxygen Saturation 64.1 % (50-70); VBG PH 7.32 mmol/L (7.31-7.41); VBG PO2 38.6 mmol/L (28-40); VBG Total CO2 21.3 mmol/L (23-27)
[2024-06-14 01:06] LABS: Potassium 3.5 mmoL/L (3.5-5.1)
[2024-06-14 01:08] LABS: Alanine Aminotransferase 35 U/L (12-78); Albumin/Globulin Ratio 1.6 (1.1-1.8); Alkaline Phosphatase 170 U/L (38-126); Anion Gap 12.5 mEq/L (5-15); Aspartate Amino Transferase 40 U/L (17-59); Bilirubin,Total 1.7 mg/dl (0.2-1.3); Blood Urea Nitrogen 25 mg/dl (9-20); Carbon Dioxide 22 mmol/L (22.0-30.0); Creatinine Clearance Estimated 58 mL/min (50-200); Estimated Glomerular Filt Rate 45 ml/min (>60); GFR (African American) 55 ML/MIN (>60); Globulin 2.7 g/dL (1.3-3.2); Phosphorous 4.6 mg/dl (2.5-4.5)
[2024-06-14 01:09] LABS: Calcium 9.2 mg/dl (8.4-10.2); Glucose 112 mg/dl (74-100); Magnesium 1.7 mg/dl (1.6-2.3)
[2024-06-14 01:18] LABS: NT Pro Brain Natriuretic Pep. 6060 pg/mL (0-125)
[2024-06-14 01:20] LABS: Troponin I 0.04 ng/ml (0.00-0.034)
--- NOTE | 2024-06-14 01:25 | PC.NURSE ---
Patient was provided a urinal to collect a urine sample.
--- NOTE | 2024-06-14 01:31 | PC.NURSE ---
Pt resting in bed, NAD noted at this time, RR even and slightly labored while still elevated, decreased from when the patient arrived. Provider on the phone to get pt admitted at this time.
--- NOTE | 2024-06-14 01:34 | PC.NURSE ---
lab contacted regarding the need for blood cultures prior to antibiotic administration. Provider at the bedside to perform POC US of the heart.
[2024-06-14] MEDS: CEFTRIAXONE 1 GM 1 GM in 0.9 % SODIUM CHLORIDE 50 ML IV (02:01)
--- NOTE | 2024-06-14 02:11 | PC.NURSE ---
report given to Susy NIEVES
--- NOTE | 2024-06-14 02:20 | PC.NURSE ---
Admitting provider wishes patient to go to ICU, attempting to call report at this time.
--- NOTE | 2024-06-14 02:25 | PC.NURSE ---
Report given to Krystyna NIEVES in the ICU
[2024-06-14 02:53] LABS: Microscopic, Urine URINE MICROSCOPIC (MICROSCOPIC)
--- NOTE | 2024-06-14 02:53 | PC.NURSE ---
output urine 650
[2024-06-14 02:58] LABS: Appearance,Urine CLEAR (Clear); Bilirubin,Urine Negative (Negative); Blood, Urine Negative (Negative); Color,Urine YELLOW (Yellow); Glucose,Urine (UA) Negative (Negative); Ketones,Urine Negative (Negative); Leukocyte Esterase,Urine Negative (Negative); Nitrate,Urine Negative (Negative); Protein,Urine Negative (Negative); Specific Gravity, Urine 1.015 (1.005-1.030); Urobilinogen,Urine 0.2 EU/dl (0.2)
[2024-06-14] MEDS: AZITHROMYCIN 500 MG in 0.9 % SODIUM CHLORIDE 250 ML 250 MG IV (03:00)
--- NOTE | 2024-06-14 03:13 | PC.NURSE ---
Patient arrived to ICU unit via wheelchair @03:00
[2024-06-14 03:23] LABS: Bacteria,Urine Trace /lpf; Squamous Epithelial Cell,Urine Occasional #/hpf (0-5); WBC,Urine Occasional #/hpf (0-3)
--- NOTE | 2024-06-14 03:27 | P.HP_ITS ---
<Statement entered by Jace Haney MD - 06/14/24 19:51> Rounded on patient after nurse practitioner. Personally examined and interviewed patient. Agree with exam findings and care plan as documented. -Patient responding to diuresis. Weaned to room air by midmorning. Cardiology evaluating. Case management assisting with insurance and medications at this time. Showing clinical improvement. Will de-escalate from ICU/stepdown to MedSurg on telemetry. Negative at least 2 L since admission. Overall doing well. Continues to require inpatient management however. History of Present Illness *Admission Date: 06/14/24 *Reason for visit:: Shortness of Breath *History of present illness: The patient is a 54-year-old male with a history of severe heart failure (EF 15- 20%, diagnosed 03/30/2024), CKD stage 3, and BPH, who presented to the emergency department (ED) with worsening lower extremity swelling, abdominal swelling, shortness of breath, and dry cough for several days. He reports severe dyspnea after a few steps, denying fever or other illness, and states he has been taking his medications as prescribed, including home Bumex, despite insurance barriers limiting access (last discharged 05/21/2024). History was obtained from the patient, EMS, and chart review. On arrival, he was afebrile, tachycardic (HR 119), normotensive, and SpO2 95% on room air at rest, with pitting edema to the thighs and abdominal distension (non-tender). Bedside ultrasound confirmed severely depressed EF, four-chamber dilation, no pericardial effusion, and moderate B-lines. Labs showed Cr 1.60 (eGFR 45, baseline), BNP 6060 (stable), troponin 0.04 (improved), and mild acidosis/hypoxia (VBG pH 7.32, pO2 38.6, O2 sat 64.1%). Initial ED chest X-ray read suggested pneumonia (subtle RLL opacity), prompting ceftriaxone 1 g IV and azithromycin; however, official radiology read showed a stable lingular lesion with mild RLL atelectasis vs. consolidation, not definitive for pneumonia. EKG showed sinus tachycardia (HR 119) with low QRS voltage, no ST elevation. Differential includes [id number] heart failure (HF), possible mild pneumonia (pending further signs), and less likely ACS or pneumothorax (ruled out by ultrasound). ED gave Bumex 2 mg IV; no fluids due to volume overload. Given worsening HF symptoms, unclear pulmonary findings, and noncompliance history (insurance issues), admission to hospital medicine was warranted. Antibiotics will be held without further indications, with possible pulmonology consult. He agreed to inpatient care after discussion. [facility] Disclaimer: The information contained in this section may have been updated after the patient was seen, as this information can be updated by other users. Medical History Chest pain Pulmonary infiltrate Hyponatremia Medically noncompliant Bed bug bite CHF (congestive heart failure) Right atrial thrombus Acute decompensated heart failure Fatigue Nodule of left lung Severe left ventricular systolic dysfunction (LVSD) Transaminitis RENAY (acute kidney injury) Anasarca LV (left ventricular) mural thrombus Acute hypoxemic respiratory failure Cardiogenic shock Non-STEMI (non-ST elevated myocardial infarction) Acute HFrEF (heart failure with reduced ejection fraction) Pneumonia Pleural effusion, bilateral Vitamin B12 deficiency Allergic rhinitis BPH (benign prostatic hyperplasia) Hyperlipidemia Insomnia Partial tear of right Achilles tendon Surgical History History of back surgery Family History Other No significant family history Social History Smoking Status: Current some day smoker tobacco type: smokeless tobacco alcohol intake: never substance use type: former substance user and heroin current occupational status: unemployed Travel in the last 8 weeks: None Other Medical History Have you received the Flu Vaccine for this season: No Have you received the Pneumonia Vaccine: No Review of Systems Review of Systems Review of systems (narrative): 13 point review of systems negative except as listed in HPI Meds Home Medications and Allergies Home Medications ?Medication ?Instructions ?Recorded ?Confirmed ?Type metoprolol succinate 25 mg 25 mg PO DAILY 05/20/24 06/14/24 History tablet,extended release 24 hr apixaban 5 mg tablet (Eliquis) 5 mg PO BID 30 days #60 tabs 05/21/24 06/14/24 Rx aspirin 81 mg tablet,delayed 81 mg PO DAILY 30 days #30 tabs 05/21/24 06/14/24 Rx release atorvastatin 80 mg tablet 80 mg PO DAILY 30 days #30 tabs 05/21/24 06/14/24 Rx bumetanide 2 mg tablet 2 mg PO DAILY 30 days #30 tabs 05/21/24 06/14/24 Rx clindamycin HCl 150 mg capsule 450 mg (3 x 150 mg) PO TID 7 days 05/21/24 06/14/24 Rx #60 caps clopidogrel 75 mg tablet (Plavix) 75 mg PO DAILY 30 days #30 tabs 05/21/24 0310/03 Rx pantoprazole 40 mg tablet,delayed 40 mg PO HS 30 days #30 tabs 05/21/24 06/14/24 Rx release potassium chloride 20 mEq 20 meq PO BID 30 days #60 tabs 05/21/24 06/14/24 Rx tablet,extended release tamsulosin 0.4 mg capsule 0.4 mg PO HS 30 days #30 caps 05/21/24 06/14/24 Rx New Prescriptions to Start Prescriptions: Allergies Allergy/AdvReac Type Severity Reaction Status Date / Time diclofenac (DICLOFENAC) Allergy Unknown Unknown Verified 05/20/24 00:11 allergy reaction Penicillins (PENICILLINS) Allergy Unknown Hives Verified 05/20/24 00:11 propoxyphene (PROPOXYPHENE) Allergy Unknown Unknown Verified 05/20/24 00:11 allergy reaction tramadol (TRAMADOL) Allergy Unknown Vomiting Verified 05/20/24 00:11 Exam Data for Last 24 hours Vital signs and Labs for Last 24 Hours: Temp Pulse Resp BP Pulse Ox O2 Del Method O2 Flow Rate 98.2 F 124 H 16 135/104 H 97 Room Air 2 06/14/24 03:14 06/14/24 03:14 06/14/24 03:14 06/14/24 03:14 06/14/24 03:14 06/14/24 03:14 06/14/24 02:11 Laboratory Results - last 24 hr 06/14/24 00:37: VBG pH 7.32, VBG pCO2 40.0, VBG pO2 38.6, VBG HCO3 20.1 L, VBG Total CO2 21.3 L, VBG O2 Saturation 64.1, VBG Base Excess -6.1 L, VBG Lactic Acid 1.7 06/14/24 00:45: WBC 7.3, RBC 4.16 L, Hgb 12.0 L, Hct 37.1 L, MCV 89.2, MCH 28.8, MCHC 32.3, RDW 19.5 H, Plt Count 441 H, MPV 9.6, Neut % (Auto) 69.5, Lymph % (Auto) 17.4, Leon % (Auto) 9.7 H, Eos % (Auto) 1.9, Baso % (Auto) 1.1, Neut # (Auto) 5.1, Lymph # (Auto) 1.3, Leon # (Auto) 0.7, Eos # (Auto) 0.1, Baso # (Auto) 0.1, Sodium 135 L, Potassium 3.5, Chloride 104, Carbon Dioxide 22, Anion Gap 12.5, BUN 25 H, Creatinine 1.60 H, Estimated Creat Clear 58, Estimated GFR 45 L, Est GFR ( Amer) 55 L, Glucose 112 H, Calcium 9.2, Phosphorus 4.6 H, Magnesium 1.7, Total Bilirubin 1.7 H, AST 40, ALT 35, Alkaline Phosphatase 170 H , Troponin I 0.04 H, NT-Pro-B Natriuret Pep 6060 H, Total Protein 7.0, Albumin 4.3, Globulin 2.7, Albumin/Globulin Ratio 1.6 06/14/24 02:03: Urine Color Yellow, Urine Appearance Clear, Urine pH 6.0, Ur Specific [place] 1.015, Urine Protein Negative, Urine Glucose (UA) Negative, Urine Ketones Negative, Urine Blood Negative, Urine Nitrate Negative, Urine Bilirubin Negative, Urine Urobilinogen 0.2, Ur Leukocyte Esterase Negative, Urine WBC Occasional, Ur Squamous Epith Cells Occasional, Urine Bacteria Trace I & O for Last 24 hours: Intake & Output 06/11/24 06/12/24 06/13/24 06/14/24 23:59 23:59 23:59 23:59 Weight 78.97 kg Constitutional Constitutional: no acute distress *Routine HEENT Exam Head: Present normocephalic Eye: Present EOMI and PERRL ENT: Present mucous membranes moist *Routine Neck Exam Neck: Present supple; Absent lymphadenopathy *Routine Respiratory Exam Respiratory: Present CTA bilaterally *Routine Cardiovascular Exam Cardiovascular: Present RRR *Routine Abdominal Exam Abdominal: Present normoactive bowel sounds, distended and firm; Absent tenderness *Routine Rectal Exam Rectal:: deferred *Routine Genitalia Exam Genitalia:: deferred *Routine Extremities Exam Extremities: Present edema (Pitting edema +2-3); Absent cyanosis or clubbing *Routine Skin Exam Skin: Present warm; Absent rash *Routine Neurological Exam Neurological: Present alert and oriented X3 Assessment and Plan *Assessment and plan (1) Nodule of left lung: Status: Acute Category: Medical Code(s): R91.1 - Solitary pulmonary nodule (2) Acute on chronic HFrEF (heart failure with reduced ejection fraction): Status: Acute Category: Medical Code(s): I50.23 - Acute on chronic systolic (congestive) heart failure (3) Acute exacerbation of CHF (congestive heart failure): Status: Acute Qualifiers: Heart failure type: systolic Qualified Code(s): I50.23 - Acute on chr onic systolic (congestive) heart failure Category: Medical Code(s): I50.9 - Heart failure, unspecified (4) Acute hypoxic respiratory failure: Status: Acute Category: Medical Code(s): J96.01 - Acute respiratory failure with hypoxia (5) CAD (coronary artery disease): Status: Acute Qualifiers: Associated angina: with unspecified form of angina Coronary Disease- Associated Artery/Lesion type: [place] artery [place] vs. transplanted heart: [place] heart Qualified Code(s): I25.119 - Atherosclerotic heart disease of [place] coronary artery with unspecified angina pectoris Category: Medical Code(s): I25.10 - Atherosclerotic heart disease of [place] coronary artery without angina pectoris (6) BPH (benign prostatic hyperplasia): Status: Chronic Qualifiers: Lower urinary tract symptom detail: urinary hesitancy Lower urinary tract symptom presence: symptoms present Qualified Code(s): N40.1 - Benign prostatic hyperplasia with lower urinary tract symptoms; R39.11 - Hesitancy of micturition Category: Medical Code(s): N40.0 - Benign prostatic hyperplasia without lower urinary tract symptoms Plan * [id number] systolic heart failure (HFrEF) * Pertinent Info: Severe dyspnea (few steps), pitting edema to thighs, abdominal distension, BNP 6060 (stable), bedside US with EF 15-20%, four- chamber dilation, moderate B-lines. VBG pO2 38.6, O2 sat 64.1%, pH 7.32, HCO3 20.1 (mild acidosis/hypoxia). HR 119, SpO2 95% RA at rest. Claims Bumex adherence despite noncompliance history. * Bumex 2 mg IV q12h (ED dose effective); monitor urine output (goal >1L/24h) , adjust to 4 mg if poor response. * Strict I/Os, daily weights; no IV fluids (volume overload). * Echo to reassess EF, valvular function (last 03/30/2024); cardiology consult for optimization * Trend BNP, troponin q24h; EKG q12h or with symptoms (low QRS voltage noted). * Case management to address insurance/med access * Unclear pulmonary findings (atelectasis vs. consolidation) * Pertinent Info: Dry cough, dyspnea, CXR with stable lingular lesion, mild RLL atelectasis vs. consolidation (official read); ED read suggested pneumonia, prompting ceftriaxone 1 g IV and azithromycin (now held). No fever, WBC 7.3, VBG pCO2 40.0. B-lines on US suggest edema over infection. * Hold antibiotics unless fever, productive cough, or sputum culture indicates (e.g., Klebsiella from prior UTI case unlikely here). * Incentive spirometry q2h awake to reverse atelectasis; chest PT if no improvement. * Chest CT if cough/SOB worsens or opacity progresses (clarify consolidation vs. fibrosis). * Possible pulmonology consult if CT needed or lingular lesion requires follow-up (stable now). * Monitor for pneumonia signs (fever, WBC trend q24h); sputum culture if productive. * Mild troponin elevation (possible demand ischemia) * Pertinent Info: Troponin 0.04 (improved from prior), HR 119, low QRS volta ge, no ST elevation. BNP 6060, EF 15-20% suggest HF strain over ACS. No chest pain. * Trend troponin q12h x 2; EKG q12h or with symptoms (watch for ischemic changes). * Cardiology to assess. * Optimize HF meds to reduce demand * CKD stage 3 (stable) * Pertinent Info: Cr 1.60, eGFR 45 (baseline), BUN 25. No fluids given; prior RENAY history unclear. * Monitor Cr/BUN q24h; adjust Bumex dosing for eGFR (renal-safe). * Strict I/Os; ray if urine output tracking difficult. * BPH (chronic) * Pertinent Info: No urinary symptoms reported; CKD link possible. Home meds unknown (tamsulosin?). * Monitor for retention (post-void residual if oliguric); resume home BPH meds if listed. * Mild metabolic acidosis and hypoxia * Pertinent Info: VBG pH 7.32, HCO3 20.1, base excess -6.1, pO2 38.6, O2 sat 64.1%. SpO2 95% RA at rest; HF-related hypoperfusion likely. * No bicarb now (pH >7.3); improve with diuresis (HF-driven). * O2 PRN if SpO2 <92% on exertion; ABG if hypoxia persists post-diuresis. * Monitor lactate q12h (1.7 now, mild). * Electrolyte and lab abnormalities * Pertinent Info: Na 135 (mildly low), P 4.6, bilirubin 1.7, alk phos 170 (hepatic congestion?). Mg 1.7, K 3.5 normal. * Monitor CMP q24h; replete Na if <130 (HF-related). * RUQ US if LFTs rise (r/o congestion vs. other). * No Mg/K repletion now (within range). * Supportive care * DVT prophylaxis: Continue Eliquis * Diet: Low-sodium (2 g/day), fluid restriction (1.5L/day). * Case management for med access (insurance delays) Disposition: The patient will be admitted to the medical floor under the hospitalist service for [id number] HFrEF with volume overload and mild RLL atelectasis vs. consolidation (antibiotics held). He requires diuresis (Bumex), cardiology/pulmonology input, and med access support, with an anticipated stay of 3-7 days, pending symptom relief (SOB, edema) and stability. ICU transfer if hypoxia worsens (e.g., O2 >6L, RR >30), HR destabilizes (e.g., VT), or oliguria/RENAY progresses. Discharge planning includes HF optimization, pulmonology follow-up for lingular lesion, and insurance resolution. Goals of care discussion if decline occurs, given severe HF prognosis.
[2024-06-14 04:52] LABS: Troponin I 0.04 ng/ml (0.00-0.034)
[2024-06-14] MEDS: GUAIFENESIN/DEXTROMETHORPHAN 200MG/20MG 10ML UDC 10 ML PO ×3 (05:29→17:59)
[2024-06-14 06:33] LABS: Basophils # 0.1 K/mm3 (0-0.2); Eosinophils # 0.1 K/mm3 (0.0-0.4); Hematocrit 36.6 % (42.0-52.0); Lymphocytes # 1.1 K/mm3 (0.7-4.5); Lymphocytes % 15.8 % (10-50); Mean Corpuscular HGB Conc 32.8 g/dL (31.8-35.4); Mean Corpuscular Hemoglobin 29.3 pg (27.0-31.2); Mean Corpuscular Volume 89.3 fl (80-94); Mean Platelet Volume 9.5 fl (7.4-10.4); Monocytes # 0.6 K/mm3 (0.1-1.0); Monocytes % 8.3 % (1.7-9.3); Neutrophils # 5.1 K/mm3 (1.8-7.8); Neutrophils % 73.6 % (37.0-80.0); Platelet Count 469 K/mm3 (142-424); Red Cell Distribution Width 19.6 % (11.5-17.5); White Blood Count 6.9 K/mm3 (4.8-10.8)
[2024-06-14 06:56] LABS: Troponin I 0.04 ng/ml (0.00-0.034)
[2024-06-14 07:50] LABS: Blood Urea Nitrogen 25 mg/dl (9-20); Calcium 9.5 mg/dl (8.4-10.2); Carbon Dioxide 22 mmol/L (22.0-30.0); Chloride 105 mmol/L (98-107); Chol/HDL Ratio 4.3 (1-3.5); Cholesterol 155 mg/dl (140-200); Creatinine Clearance Estimated 64 mL/min (50-200); Estimated Glomerular Filt Rate 49 ml/min (>60); GFR (African American) 59 ML/MIN (>60); Glucose 121 mg/dl (74-100); HDL Cholesterol 36 mg/dl (40-60); Magnesium 1.6 mg/dl (1.6-2.3); Phosphorous 5.5 mg/dl (2.5-4.5); Sodium 137 mmol/L (136-145); Triglycerides 43 mg/dl (30-150); VLDL Cholesterol 9 mg/dL (0-40)
[2024-06-14 08:01] LABS: Direct LDL Cholesterol 91.31 mg/dL (100-129)
[2024-06-14] MEDS: APIXABAN 5MG TABLET 5 MG PO ×2 (09:20→21:02)
[2024-06-14] MEDS: ATORVASTATIN 40MG TABLET 80 MG PO (09:21)
[2024-06-14] MEDS: ASPIRIN EC 81MG TABLET 81 MG PO (09:21)
[2024-06-14] MEDS: CLOPIDOGREL 75MG TAB 75 MG PO (09:22)
[2024-06-14] MEDS: METOPROLOL SUCCINATE XL 25MG TABLET 25 MG PO (09:22)
[2024-06-14] MEDS: POTASSIUM CHLORIDE 20MEQ TAB 20 MEQ PO ×2 (09:22→21:01)
--- NOTE | 2024-06-14 09:31 | HMH.PHAINT1 ---
Pharmacy Intervention Comments: home medication list completed using list from discharge summary from most recent hospitalization (pt left AMA)
[2024-06-14] MEDS: SODIUM CHLORIDE 3% 15ML NEB 3 ML IH (09:36)
--- NOTE | 2024-06-14 11:43 | P.CONCA_ITS ---
History of Present Illness History of Present Illness Consult date: 06/14/24 Requesting physician: Jace Haney Consult reason: shortness of breath Chief complaint: Shortness of breath History of present illness: This is a 54-year-old gentleman who presented to the hospital with shortness of breath. The patient has known HFrEF, CKD, coronary artery disease, hypertension and hyperlipidemia. He states that he has been having worsening shortness of breath for approximately 3 days prior to coming into the hospital. He states that he was more short of breath with exertion and sometimes even at rest. This was associated with worsening bilateral lower extremity edema and abdominal swelling. His shortness of breath was also associated with a dry cough. He states that he was only able to take a few steps before he was severely short of breath so he decided to come into the emergency department. He denied any chest pain or pressure. He denied any fever, chills, nausea, vomiting or diarrhea. His shortness of breath was also associated with orthopnea. The patient states that he has been taking his Bumex, blood thinner, aspirin and 1 other medication as prescribed. He states that he was unable to afford any of his other medicines but did get those 4 medications. The patient has not went to the Medicaid office to turn and the documents they need for him to be eligible to receive Medicaid. He states that he has no transportation to do those things. The patient has been admitted multiple times to the hospital because of his noncompliance with his medical regimen. This is his fourth admission for heart failure. He states that since being in the hospital he has had improvement in his shortness of breath and lower extremity edema. He still has trace edema on exam. He adamantly states that he wants a LifeVest now. [facility] Disclaimer: The information contained in this section may have been updated after the patient was seen, as this information can be updated by other users. Medical History (Updated 06/14/24 @ 11:56 by Valentina Rios APRN) Medically noncompliant Bilateral edema of lower extremity CKD stage 3a, GFR 45-59 ml/min CAD (coronary artery disease) Acute on chronic HFrEF (heart failure with reduced ejection fraction) Pneumonia Chest pain Pulmonary infiltrate Hyponatremia Bed bug bite CHF (congestive heart failure) Right atrial thrombus Acute decompensated heart failure Fatigue Nodule of left lung Severe left ventricular systolic dysfunction (LVSD) Transaminitis RENAY (acute kidney injury) Anasarca LV (left ventricular) mural thrombus Acute hypoxemic respiratory failure Cardiogenic shock Non-STEMI (non-ST elevated myocardial infarction) Acute HFrEF (heart failure with reduced ejection fraction) Pneumonia Pleural effusion, bilateral Vitamin B12 deficiency Allergic rhinitis BPH (benign prostatic hyperplasia) Hyperlipidemia Insomnia Partial tear of right Achilles tendon Surgical History History of back surgery Family History Other No significant family history Social History Smoking Status: Current some day smoker tobacco type: smokeless tobacco alcohol intake: never substance use type: former substance user and heroin current occupational status: unemployed Travel in the last 8 weeks: None Review of Systems Review of Systems Review of systems:: pertinent systems reviewed and negative unless documented below Constitutional Constitutional: Reports system reviewed and no additional complaints, except as documented, Reports fatigue and Reports lethargy Eyes Eyes: Reports system reviewed and no additional complaints, except as documented ENT Ears, Nose, Mouth, and Throat: Reports system reviewed and no additional complaints, except as documented *Cardiovascular Cardiovascular: Reports system reviewed and no additional complaints, except as documented, Denies chest pain, Reports dyspnea, Reports dyspnea on exertion, Reports edema, Reports leg edema, Reports orthopnea and Reports pedal edema *Respiratory Respiratory: Reports system reviewed and no additional complaints, except as documented, Reports dyspnea and Reports dyspnea on exertion *Gastrointestinal Gastrointestinal: Reports system reviewed and no additional complaints, except as documented *Genitourinary Genitourinary: Reports system reviewed and no additional complaints, except as documented *Musculoskeletal Musculoskeletal: Reports system reviewed and no additional complaints, except as documented Integumentary/Breasts Skin/Breast: Reports system reviewed and no additional complaints, except as documented *Neurologic Neurologic: Reports system reviewed and no additional complaints, except as documented Psychiatric Psychiatric: Reports system reviewed and no additional complaints, except as documented Endocrine Endocrine: Reports system reviewed and no additional complaints, except as documented and Reports fatigue Hematologic/Lymphatic Hematologic/Lymphatic: Reports system reviewed and no additional complaints, except as documented Allergic/Immunologic Allergic/Immunologic: Reports system reviewed and no additional complaints, except as documented Exam Data for Last 24 hours Vital signs and Labs for Last 24 Hours: Temp Pulse Resp BP Pulse Ox O2 Del Method O2 Flow Rate 97.8 F 117 H 25 H 102/67 L 98 Room Air 2 06/14/24 08:00 06/14/24 10:00 06/14/24 10:00 06/14/24 10:00 06/14/24 10:00 06/14/24 10:00 06/14/24 06:03 Laboratory Results - last 24 hr 06/14/24 00:37: VBG pH 7.32, VBG pCO2 40.0, VBG pO2 38.6, VBG HCO3 20.1 L, VBG Total CO2 21.3 L, VBG O2 Saturation 64.1, VBG Base Excess -6.1 L, VBG Lactic Acid 1.7 06/14/24 00:45: WBC 7.3, RBC 4.16 L, Hgb 12.0 L, Hct 37.1 L, MCV 89.2, MCH 28.8, MCHC 32.3, RDW 19.5 H, Plt Count 441 H, MPV 9.6, Neut % (Auto) 69.5, Lymph % (Auto) 17.4, [place] % (Auto) 9.7 H, Eos % (Auto) 1.9, Baso % (Auto) 1.1, Neut # (Auto) 5.1, Lymph # (Auto) 1.3, [place] # (Auto) 0.7, Eos # (Auto) 0.1, Baso # (Auto) 0.1, Sodium 135 L, Potassium 3.5, Chloride 104, Carbon Dioxide 22, Anion Gap 12.5, BUN 25 H, Creatinine 1.60 H, Estimated Creat Clear 58, Estimated GFR 45 L, Est GFR ( Amer) 55 L, Glucose 112 H, Calcium 9.2, Phosphorus 4.6 H, Magnesium 1.7, Total Bilirubin 1.7 H, AST 40, ALT 35, Alkaline Phosphatase 170 H , Troponin I 0.04 H, NT-Pro-B Natriuret Pep 6060 H, Total Protein 7.0, Albumin 4.3, Globulin 2.7, Albumin/Globulin Ratio 1.6 06/14/24 02:03: Urine Color Yellow, Urine Appearance Clear, Urine pH 6.0, Ur Specific [place] 1.015, Urine Protein Negative, Urine Glucose (UA) Negative, Urine Ketones Negative, Urine Blood Negative, Urine Nitrate Negative, Urine B ilirubin Negative, Urine Urobilinogen 0.2, Ur Leukocyte Esterase Negative, Urine WBC Occasional, Ur Squamous Epith Cells Occasional, Urine Bacteria Trace 06/14/24 04:25: Troponin I 0.04 H 06/14/24 06:07: WBC 6.9, RBC 4.10 L, Hgb 12.0 L, Hct 36.6 L, MCV 89.3, MCH 29.3, MCHC 32.8, RDW 19.6 H, Plt Count 469 H, MPV 9.5, Neut % (Auto) 73.6, Lymph % (Auto) 15.8, [place] % (Auto) 8.3, Eos % (Auto) 1.0, Baso % (Auto) 1.0, Neut # (Auto) 5.1, Lymph # (Auto) 1.1, [place] # (Auto) 0.6, Eos # (Auto) 0.1, Baso # (Auto) 0.1, Sodium 137, Potassium 4.0, Chloride 105, Carbon Dioxide 22, Anion Gap 14.0, BUN 25 H, Creatinine 1.50 H, Estimated Creat Clear 64, Estimated GFR 49 L, Est GFR ( Amer) 59, Glucose 121 H, Calcium 9.5, Phosphorus 5.5 H, Magnesium 1.6, Troponin I 0.04 H, Triglycerides 43, Cholesterol 155, LDL Cholesterol Direct 91.31 L, VLDL Cholesterol 9, HDL Cholesterol 36 L, Cholesterol/HDL Ratio 4.3 H I & O for Last 24 hours: Intake & Output 06/11/24 06/12/24 06/13/24 06/14/24 23:59 23:59 23:59 23:59 Intake Total 270 / 270 Output Total 2149 / 2149 Balance -1879 / -1880 Weight 176 lb 5.917 oz Constitutional Constitutional: no acute distress and average body habitus *Routine HEENT Exam Head: Present normocephalic and atraumatic ENT: Present mucous membranes moist *Routine Neck Exam Neck: Present supple, full ROM and normal carotid upstroke; Absent JVD, carotid bruit or lymphadenopathy *Routine Respiratory Exam Respiratory: Present rales, normal respiratory effort, able to speak in complete sentences and symmetric chest movement *Routine Cardiovascular Exam Cardiovascular: Present RRR, Normal S1 and Normal S2; Absent murmur or gallop *Routine Abdominal Exam Abdominal: Present soft and normoactive bowel sounds; Absent tenderness, distended or organomegaly *Routine Extremities Exam Extremities: Present edema, full ROM, pulses intact and normal capillary refill; Absent cyanosis or clubbing *Routine Skin Exam Skin: Present intact and warm; Absent erythema *Routine Neurological Exam Neurological: Present alert, oriented X3 and CN II-XII intact; Absent sensory deficit or motor deficit Routine Psychiatric Exam Psychiatric: Present normal affect Meds Home Medications and Allergies Home Medications ?Medication ?Instructions ?Recorded ?Confirmed ?Type metoprolol succinate 25 mg 25 mg PO DAILY 05/20/24 06/14/24 History tablet,extended release 24 hr apixaban 5 mg tablet (Eliquis) 5 mg PO BID 30 days #60 tabs 05/21/24 06/14/24 Rx aspirin 81 mg tablet,delayed 81 mg PO DAILY 30 days #30 tabs 05/21/24 06/14/24 Rx release atorvastatin 80 mg tablet 80 mg PO DAILY 30 days #30 tabs 05/21/24 06/14/24 Rx bumetanide 2 mg tablet 2 mg PO DAILY 30 days #30 tabs 05/21/24 06/14/24 Rx clopidogrel 75 mg tablet (Plavix) 75 mg PO DAILY 30 days #30 tabs 05/21/24 06/14/24 Rx pantoprazole 40 mg tablet,delayed 40 mg PO HS 30 days #30 tabs 05/21/24 06/14/24 Rx release potassium chloride 20 mEq 20 meq PO BID 30 days #60 tabs 05/21/24 06/14/24 Rx tablet,extended release tamsulosin 0.4 mg capsule 0.4 mg PO HS 30 days #30 caps 05/21/24 06/14/24 Rx New Prescriptions to Start Prescriptions: Allergies Allergy/AdvReac Type Severity Reaction Status Date / Time diclofenac (DICLOFENAC) Allergy Unknown Unknown Verified 05/20/24 00:11 allergy reaction Penicillins (PENICILLINS) Allergy Unknown Hives Verified 05/20/24 00:11 propoxyphene (PROPOXYPHENE) Allergy Unknown Unknown Verified 05/20/24 00:11 allergy reaction tramadol (TRAMADOL) Allergy Unknown Vomiting Verified 05/20/24 00:11 Assessment and Plan *Assessment and plan (1) Acute on chronic HFrEF (heart failure with reduced ejection fraction): Status: Acute Category: Medical Code(s): I50.23 - Acute on chronic systolic (congestive) heart failure (2) CAD (coronary artery disease): Status: Acute Qualifiers: Associated angina: with unspecified form of angina Coronary Disease- Associated Artery/Lesion type: [place] artery [place] vs. transplanted heart: [place] heart Qualified Code(s): I25.119 - Atherosclerotic heart disease of [place] coronary artery with unspecified angina pectoris Category: Medical Code(s): I25.10 - Atherosclerotic heart disease of [place] coronary artery without angina pectoris (3) Hyperlipidemia: Status: Chronic Qualifiers: Hyperlipidemia type: unspecified Qualified Code(s): E78.5 - Hyperlipidemia, unspecified Category: Medical Code(s): E78.5 - Hyperlipidemia, unspecified (4) CKD stage 3a, GFR 45-59 ml/min: Status: Acute Category: Medical Code(s): N18.31 - Chronic kidney disease, stage 3a (5) Pneumonia: Status: Acute Qualifiers: Laterality: right Lung location: unspecified part of lung Pneumonia type: due to unspecified organism Qualified Code(s): J18.9 - Pneumonia, unspecified organism Category: Medical Code(s): J18.9 - Pneumonia, unspecified organism (6) Bilateral edema of lower extremity: Status: Acute Category: Medical Code(s): R60.0 - Localized edema (7) Medically noncompliant: Status: Acute Category: Medical Code(s): Z91.199 - Patient's noncompliance with other medical treatment and regimen due to unspecified reason (8) LV (left ventricular) mural thrombus: Status: Acute Category: Medical Code(s): I51.3 - Intracardiac thrombosis, not elsewhere classified Plan Plan: 1. The patient was admitted to the hospital with acute on chronic HFrEF. The patient has historically been medically noncompliant and has had multiple admissions to the hospital recently for his acute on chronic HFrEF. The patient states that he is only been taking 4 medications with that is all he can afford. He has not went to get his Medicaid that he was approved for since March so he still has no prescription coverage. The patient states that he has not had any transportation to take the documents needed to the [facility] office. Will diurese the patient with Bumex 2 mg IV twice daily. 2. The patient has been restarted on Bumex for his HFrEF. 3. The patient cannot afford Entresto or Jardiance. 4. The patient does have a history of coronary artery disease with stenting to his LAD and circumflex in March 2024. He has been restarted on his aspirin and Plavix for dual antiplatelet therapy. 5. The patient has a history of an LV thrombus. He is currently on Eliquis. Recent echocardiogram does not show any evidence of an LV thrombus, but he had not been on anticoagulation for 3 to 6 months at that time. We want to resume Eliquis at this time. 6. His blood pressure is well-controlled. 7. His LDL goal is less than 55. He is on a statin. 8. The patient has severe LV dysfunction with an ejection fraction of 10 to 15%. He is an increased risk of sudden cardiac due to severe LV dysfunction. The patient is requesting a LifeVest at this time. A LifeVest was ordered previously and the patient left AMA and was never fitted for the LifeVest. He is now wanting a LifeVest in place prior to discharge. Will further investigate approval of LifeVest. 9. The patient's troponin is elevated at 0.04. This is most likely demand ischemia from his acute on chronic HFrEF. 10. His chronic kidney disease is stable. Creatinine is 1.5. Will continue to follow. 11. Further recommendations will be made pending the patient's response to treatment. Thank you for the opportunity to help participate in the care of this patient. All recommendations and orders are per Dr. Bustillo.
[2024-06-14] MEDS: ACETAMINOPHEN 325MG TAB 650 MG PO ×2 (12:38→17:58)
--- NOTE | 2024-06-14 17:05 | PC.NURSE ---
patient has remained in his room this shift. he is able to ambulate to and from the bsc, chair and bed. pt is on room air. pt is a/o x 4. lungs are clear but diminished t/o nad noted. pt is to be fit for lifevest tomorrow.
[2024-06-14] MEDS: PANTOPRAZOLE 40MG TABLET 40 MG PO (21:02)
[2024-06-14] MEDS: TAMSULOSIN 0.4MG CAPSULE 0.4 MG PO (21:02)
[2024-06-15] VITALS: BP 107/68; PULSE 90; PULSE 96; RESP 16; TEMP 35.9; O2SAT 98
[2024-06-15 04:00] VITALS: BP 114/85; PULSE 108; PULSE 110; RESP 16; TEMP 36.4; O2SAT 97; BMI 23.5
--- NOTE | 2024-06-15 04:51 | PC.NURSE ---
v/s, ox4, independent. Pt is awaiting lifevest and is a possible d/c today. No acute evetns to report, plan of care ongoing.
[2024-06-15 06:32] LABS: Basophils # 0.1 K/mm3 (0-0.2); Basophils % 0.9 % (0.1-2.0); Eosinophils # 0.1 K/mm3 (0.0-0.4); Eosinophils % 1.4 % (0.1-12.0); Hematocrit 36.7 % (42.0-52.0); Hemoglobin 12.3 g/dL (14.1-18.0); Lymphocytes # 1.1 K/mm3 (0.7-4.5); Lymphocytes % 16.3 % (10-50); Mean Corpuscular HGB Conc 33.5 g/dL (31.8-35.4); Mean Corpuscular Hemoglobin 29.5 pg (27.0-31.2); Mean Platelet Volume 9.5 fl (7.4-10.4); Monocytes # 0.6 K/mm3 (0.1-1.0); Monocytes % 8.5 % (1.7-9.3); Neutrophils % 72.6 % (37.0-80.0); Platelet Count 422 K/mm3 (142-424); Red Blood Count 4.17 M/mm3 (4.60-6.20); Red Cell Distribution Width 19.4 % (11.5-17.5); White Blood Count 6.9 K/mm3 (4.8-10.8)
[2024-06-15 06:41] LABS: Anion Gap 15.7 mEq/L (5-15); Blood Urea Nitrogen 33 mg/dl (9-20); Calcium 8.8 mg/dl (8.4-10.2); Carbon Dioxide 22 mmol/L (22.0-30.0); Chloride 102 mmol/L (98-107); Creatinine Clearance Estimated 45 mL/min (50-200); Estimated Glomerular Filt Rate 40 ml/min (>60); GFR (African American) 48 ML/MIN (>60); Glucose 93 mg/dl (74-100); Potassium 3.7 mmoL/L (3.5-5.1); Sodium 136 mmol/L (136-145)
[2024-06-15 08:00] VITALS: PULSE 110
--- NOTE | 2024-06-15 08:56 | PC.NURSE ---
Pt unable to cough anything up for sputum sample.
--- NOTE | 2024-06-15 09:05 | SW/DCPLANNER ---
Addendum entered by Klaudia Wiley RN 06/15/24 09:34: Late note from 06/14/2024 Dr. Haney and I met with patient to discuss issues with readmission due to medication noncompliance. Patient has been having issues with insurance, and both Isadora Abraham and I have spoken with him and provided him with phone numbers and resources on how to work on fixing his insurance. Patient states that he has not been able to get a ride to [employer], although he has Medicaid and has used [employer] in the past. He was again given information on fixing his Medicare, due to we are unable to do anything else to assist with his insurance issues and it is up to him to get it fixed. Patient educated by Dr. Haney and myself on importance of his medication and getting his insurance fixed. Original Note: I spoke w/ this patient regarding plans once medically stable for discharge. Patient initially stated that he did not have transportation. However, patient stated this AM that he has used [employer] in the past and will be using services in the future. I have provided patient w/ [facility] Resource List as well. Patient did not have any further questions/needs at this time.
[2024-06-15] MEDS: POTASSIUM CHLORIDE 20MEQ TAB 20 MEQ PO (09:16)
[2024-06-15] MEDS: BUMETANIDE 1MG/4ML VIAL 2 MG IV (09:16)
[2024-06-15] MEDS: CLOPIDOGREL 75MG TAB 75 MG PO (09:16)
[2024-06-15] MEDS: ASPIRIN EC 81MG TABLET 81 MG PO (09:16)
[2024-06-15] MEDS: METOPROLOL SUCCINATE XL 25MG TABLET 25 MG PO ×2 (09:16→11:02)
[2024-06-15] MEDS: APIXABAN 5MG TABLET 5 MG PO (09:16)
--- NOTE | 2024-06-15 10:10 | PC.NURSE ---
Pt HR in 140's even after morning medications were given. Pt is asymptomatic. MD is aware.
--- NOTE | 2024-06-15 11:02 | EXP.CARD.PN ---
Subjective Subjective Date: 06/15/24 Time: 09:00 Principal diagnosis: Acute on chronic HFrEF Interval history: This is a 54-year-old gentleman who presented to the hospital with shortness of breath. He is being treated for acute on chronic HFrEF. The patient states that his shortness of breath has significantly improved. His lower extremity edema has resolved. He denies any chest pain or pressure. He denies any fever, chills, nausea, vomiting or diarrhea. The patient is lying flat when I walk in the room and sleeping with no distress. The patient has historically been noncompliant and a unable to afford medications due to his insurance. The patient did qualify for Medicaid but needs to take documents to their office so he can start getting medicine coverage and he is yet to do this because of transportation issues. The patient has been approved for a LifeVest and will be fitted today. Exam Data for Last 24 hours Vital signs and Labs for Last 24 Hours: Temp Pulse Resp BP Pulse Ox O2 Del Method O2 Flow Rate 97.6 F 110 H 16 114/85 97 Room Air 2 06/15/24 04:00 06/15/24 08:00 06/15/24 04:00 06/15/24 04:00 06/15/24 04:00 06/15/24 06:03 06/14/24 06:03 Laboratory Results - last 24 hr 06/15/24 06:10: WBC 6.9, RBC 4.17 L, Hgb 12.3 L, Hct 36.7 L, MCV 88.0, MCH 29.5, MCHC 33.5, RDW 19.4 H, Plt Count 422, MPV 9.5, Neut % (Auto) 72.6, Lymph % (Auto) 16.3, [place] % (Auto) 8.5, Eos % (Auto) 1.4, Baso % (Auto) 0.9, Neut # (Auto) 5.0, Lymph # (Auto) 1.1, [place] # (Auto) 0.6, Eos # (Auto) 0.1, Baso # (Auto) 0.1, Sodium 136, Potassium 3.7, Chloride 102, Carbon Dioxide 22, Anion Gap 15.7 H, BUN 33 H D, Creatinine 1.80 H, Estimated Creat Clear 45, Estimated GFR 40 L, Est GFR ( Amer) 48 L, Glucose 93, Calcium 8.8 I & O for Last 24 hours: Intake & Output 06/12/24 06/13/24 06/14/24 06/15/24 23:59 23:59 23:59 23:59 Intake Total 990 / 990 360 / 360 Output Total 3000 / 3000 1400 / 1400 Balance -2009 -0 / -1040 Weight 176 lb 5.917 oz 150 lb Microbiology Reports for the Last 24 Hours: Microbiology 06/14/24 01:54 Blood Blood Culture - Preliminary NO GROWTH AFTER 24 HOURS 06/14/24 01:54 Blood Blood Culture - Preliminary NO GROWTH AFTER 24 HOURS Constitutional Constitutional: no acute distress and average body habitus *Routine HEENT Exam Head: Present normocephalic and atraumatic ENT: Present mucous membranes moist *Routine Neck Exam Neck: Present supple, full ROM and normal carotid upstroke; Absent JVD, carotid bruit or lymphadenopathy *Routine Respiratory Exam Respiratory: Present CTA bilaterally, normal respiratory effort, able to speak in complete sentences and symmetric chest movement *Routine Cardiovascular Exam Cardiovascular: Present RRR, Normal S1 and Normal S2; Absent murmur or gallop *Routine Abdominal Exam Abdominal: Present soft and normoactive bowel sounds; Absent tenderness, distended or organomegaly *Routine Extremities Exam Extremities: Present full ROM, pulses intact and normal capillary refill; Absent cyanosis, clubbing or edema *Routine Skin Exam Skin: Present intact and warm; Absent erythema *Routine Neurological Exam Neurological: Present alert, oriented X3 and CN II-XII intact; Absent sensory deficit or motor deficit Routine Psychiatric Exam Psychiatric: Present normal affect Progress Note: A&P Assessment and plan (1) Acute on chronic HFrEF (heart failure with reduced ejection fraction): Status: Acute (2) CAD (coronary artery disease): Status: Acute (3) Hyperlipidemia: Status: Chronic (4) CKD stage 3a, GFR 45-59 ml/min: Status: Acute (5) Pneumonia: Status: Acute (6) Bilateral edema of lower extremity: Status: Acute (7) Medically noncompliant: Status: Acute (8) LV (left ventricular) mural thrombus: Status: Acute Assessment and Plan Assessment and Plan for All Diagnoses:: Plan: 1. The patient was admitted to the hospital with acute on chronic HFrEF. The patient has historically been medically noncompliant and has had multiple admissions to the hospital recently for his acute on chronic HFrEF. The patient states that he is only been taking 4 medications, that is all he can afford. He has not went to get his Medicaid that he was approved for since March so he still has no prescription coverage. The patient states that he has not had any transportation to take the documents needed to the [facility] office. The patient has been started on IV Bumex. He has a -2 L fluid balance overnight. Prior to discharge home we will change him to Bumex 2 mg p.o. twice daily. 2. The patient cannot afford Entresto or Jardiance. 3. The patient does have a history of coronary artery disease with stenting to his LAD and circumflex in March 2024. He has been restarted on his aspirin and Plavix for dual antiplatelet therapy. He does have a slightly elevated troponin at 0.04 which is actually much improved since prior visits. This is most likely demand ischemia from his acute on chronic HFrEF. No plans for invasive left cardiac catheterization at this time. 4. The patient has a history of an LV thrombus. He is currently on Eliquis. Recent echocardiogram does not show any evidence of an LV thrombus, but he had not been on anticoagulation for 3 to 6 months. We want to resume Eliquis at this time, until he has been anticoagulated for approximately 6 months post LV thrombus. 5. His blood pressure is well-controlled. 6. His heart rate is elevated. Will increase his Toprol-XL to 50 mg p.o. daily for better heart rate control. 7. His LDL goal is less than 55. He is on a statin. His LDL is 91. 8. The patient has severe LV dysfunction with an ejection fraction of 10 to 15%. He is an increased risk of sudden cardiac due to severe LV dysfunction. The patient has been approved for LifeVest which will be fitted prior to discharge home. 9. The patient does have chronic kidney disease. His creatinine is stable at 1.8. 10. No further recommendations at this time from a cardiac standpoint. He will need to follow-up in cardiology clinic in 1 to 2 weeks on an outpatient basis. The patient will need to be discharged on the following cardiac medications when he is stable for discharge: Eliquis 5 mg p.o. twice daily, aspirin 81 mg daily, Lipitor 80 mg p.o. nightly, Bumex 2 mg p.o. twice daily, Plavix 75 mg daily, Toprol-XL 50 mg daily. Thank you for the opportunity to help participate in the care of this patient. All recommendations and orders are per Dr. Bustillo.
--- NOTE | 2024-06-15 11:07 | EXP.DC.SUM ---
General Admission date:: 06/14/24 Discharge date: 06/15/24 HPI HPI HPI: The patient is a 54-year-old male with a history of severe heart failure (EF 15-20%, diagnosed 03/30/2024), CKD stage 3, and BPH, who presented to the emergency department (ED) with worsening lower extremity swelling, abdominal swelling, shortness of breath, and dry cough for several days. He reports severe dyspnea after a few steps, denying fever or other illness, and states he has been taking his medications as prescribed, including home Bumex, despite insurance barriers limiting access (last discharged 05/21/2024). History was obtained from the patient, EMS, and chart review. On arrival, he was afebrile, tachycardic (HR 119), normotensive, and SpO2 95% on room air at rest, with pitting edema to the thighs and abdominal distension (non-tender). Bedside ultrasound confirmed severely depressed EF, four-chamber dilation, no pericardial effusion, and moderate B-lines. Labs showed Cr 1.60 (eGFR 45, baseline), BNP 6060 (stable), troponin 0.04 (improved), and mild acidosis/hypoxia (VBG pH 7.32, pO2 38.6, O2 sat 64.1%). Initial ED chest X-ray read suggested pneumonia (subtle RLL opacity), prompting ceftriaxone 1 g IV and azithromycin; however, official radiology read showed a stable lingular lesion with mild RLL atelectasis vs. consolidation, not definitive for pneumonia. EKG showed sinus tachycardia (HR 119) with low QRS voltage, no ST elevation. Differential includes [id number] heart failure (HF), possible mild pneumonia (pending further signs), and less likely ACS or pneumothorax (ruled out by ultrasound). ED gave Bumex 2 mg IV; no fluids due to volume overload. Given worsening HF symptoms, unclear pulmonary findings, and noncompliance history (insurance issues), admission to hospital medicine was warranted. Antibiotics will be held without further indications, with possible pulmonology consult. He agreed to inpatient care after discussion. Hospital Course Hospital Course Hospital Course: Manuel Gonsales is a 54-year-old disabled gentleman who presented with recurrence of acute on chronic heart failure with reduced ejection fraction. Patient was discharged a month ago with similar presentation. Condition complicated by CAD, medical noncompliance, BPH. Case management has assisted with trying to get patient insurance. He needs to go to the Medicaid office to complete his insurance. We have worked with him for the past 2 months with limited success. He has responded to resumption of previous medication regimen recommended by cardiology. Cardiology assisted with care during this admission as well. At this time he is medically stable to discharge home. LifeVest placed prior to discharge. States he has a ride for Tuesday to get to the Medicaid office to complete his insurance requirements. On room air. Problems addressed as follows: Acute on chronic Heart failure with reduced ejection fraction. CAD status post SANAZ 03/2024 LV thrombus -New dx 03/2024 with late presentation NV and EF 15 to 20%. Initiated on diuretics. -4 L since admission. Responded well. Presented with acute exacerbation. Aggressively diuresed and resumed metoprolol. Cardiology consulted and assisted with treatment. At this time will recommend the following medications: -Continue Eliquis 5 mg twice daily for LV thrombus, aspirin 81 mg daily and Plavix 75 mg daily for recent stent placement in March, Lipitor 80 mg nightly, Bumex 2 mg twice daily, and metoprolol succinate 50 mg daily. -Plan for close follow-up with cardiology for further adjustment to regimen as an outpatient. Appointment made prior to discharge. CKD-III: Cr 1.8, BUN 33, this appears to be his baseline. Noncompliance: discussed again with patient the need to obtain his medications. We have done all we can to assist with insurance. He needs to personally appear at the [facility] office to complete his Medicaid and show proof of income and expenses. Provided with numbers to contact Medicaid. Patient states he has a ride for Tuesday. Encouraged him to keep this appointment. #Left mid lung infiltrate versus mass ? No acute treatment during this admission. Previously saw pulmonology while inpatient and completed clindamycin after last admission. Needs follow-up with pulmonology as an outpatient and repeat imaging in the next 2 to 4 weeks. Suspicious for infection versus cancer. #BPH: Continue home tamsulosin 0.4 mg daily Total time spent on discharge: 34 minutes on chart review, counseling, documentation, discussion with subspecialist and case management, and direct care with patient. Exam Data for Last 24 hours Vital signs and Labs for Last 24 Hours: Temp Pulse Resp BP Pulse Ox O2 Del Method O2 Flow Rate 97.6 F 110 H 16 114/85 97 Room Air 2 06/15/24 04:00 06/15/24 08:00 06/15/24 04:00 06/15/24 04:00 06/15/24 04:00 06/15/24 06:03 06/14/24 06:03 Laboratory Results - last 24 hr 06/15/24 06:10: WBC 6.9, RBC 4.17 L, Hgb 12.3 L, Hct 36.7 L, MCV 88.0, MCH 29.5, MCHC 33.5, RDW 19.4 H, Plt Count 422, MPV 9.5, Neut % (Auto) 72.6, Lymph % (Auto) 16.3, [place] % (Auto) 8.5, Eos % (Auto) 1.4, Baso % (Auto) 0.9, Neut # (Auto) 5.0, Lymph # (Auto) 1.1, [place] # (Auto) 0.6, Eos # (Auto) 0.1, Baso # (Auto) 0.1, Sodium 136, Potassium 3.7, Chloride 102, Carbon Dioxide 22, Anion Gap 15.7 H, BUN 33 H D, Creatinine 1.80 H, Estimated Creat Clear 45, Estimated GFR 40 L, Est GFR ( Amer) 48 L, Glucose 93, Calcium 8.8 I & O for Last 24 hours: Intake & Output 06/12/24 06/13/24 06/14/24 06/15/24 23:59 23:59 23:59 23:59 Intake Total 990 / 990 360 / 360 Output Total 3000 / 3000 1400 / 1400 Balance -2009 / -1040 / -1040 Weight 80 kg 68.039 kg Microbiology Reports for the Last 24 Hours: Microbiology 06/14/24 01:54 Blood Blood Culture - Preliminary NO GROWTH AFTER 24 HOURS 06/14/24 01:54 Blood Blood Culture - Preliminary NO GROWTH AFTER 24 HOURS Constitutional Constitutional: no acute distress *Routine HEENT Exam Head: Present normocephalic Eye: Present EOMI and PERRL ENT: Present mucous membranes moist *Routine Neck Exam Neck: Present supple; Absent lymphadenopathy *Routine Respiratory Exam Respiratory: Present CTA bilaterally *Routine Cardiovascular Exam Cardiovascular: Present tachycardia Comments: Regular rhythm, tachycardic ~100 *Routine Abdominal Exam Abdominal: Present soft and normoactive bowel sounds; Absent tenderness *Routine Rectal Exam Patient deferred: visual exam *Routine Exam Patient deferred: penile exam *Routine Extremities Exam Extremities: Present edema (Trace bilateral lower extremity to knees); Absent cyanosis or clubbing Comments: Lower extremity pitting edema 1+. *Routine Skin Exam Skin: Present intact and warm; Absent rash *Routine Neurological Exam Neurological: Present alert, oriented X3 and moving all extremities; Absent altered mental status Routine Psychiatric Exam Psychiatric: Present normal affect; Absent good insight or good judgment Results Data Completed and Pending Labs on day of discharge: Labs from last 24 hours 06/15/24 06:10 WBC 6.9 RBC 4.17 L Hgb 12.3 L Hct 36.7 L MCV 88.0 MCH 29.5 MCHC 33.5 RDW 19.4 H Plt Count 422 MPV 9.5 Neut % (Auto) 72.6 Lymph % (Auto) 16.3 [place] % (Auto) 8.5 Eos % (Auto) 1.4 Baso % (Auto) 0.9 Neut # (Auto) 5.0 Lymph # (Auto) 1.1 [place] # (Auto) 0.6 Eos # (Auto) 0.1 Baso # (Auto) 0.1 Sodium 136 Potassium 3.7 Chloride 102 Carbon Dioxide 22 Anion Gap 15.7 H BUN 33 H D Creatinine 1.80 H Estimated Creat Clear 45 Estimated GFR 40 L Est GFR ( Amer) 48 L Glucose 93 Calcium 8.8 Preliminary micro results at discharge 06/14/24 01:54 Blood Culture - Preliminary Blood NO GROWTH AFTER 24 HOURS 06/14/24 01:54 Blood Culture - Preliminary Blood NO GROWTH AFTER 24 HOURS DS: Diagnosis Discharge Diagnosis (1) Acute on chronic HFrEF (heart failure with reduced ejection fraction): Status: Acute Code(s): I50.23 - Acute on chronic systolic (congestive) heart failure (2) CAD (coronary artery disease): Status: Acute Code(s): I25.10 - Atherosclerotic heart disease of [place] coronary artery without angina pectoris Qualifiers: Associated angina: with unspecified form of angina Coronary Disease-Associated Artery/Lesion type: [place] artery [place] vs. transplanted heart: [place] heart Qualified Code(s): I25.119 - Atherosclerotic heart disease of [place] coronary artery with unspecified angina pectoris (3) Hyperlipidemia: Status: Chronic Code(s): E78.5 - Hyperlipidemia, unspecified Qualifiers: Hyperlipidemia type: unspecified Qualified Code(s): E78.5 - Hyperlipidemia, unspecified (4) CKD stage 3a, GFR 45-59 ml/min: Status: Acute Code(s): N18.31 - Chronic kidney disease, stage 3a (5) Pneumonia: Status: Acute Code(s): J18.9 - Pneumonia, unspecified organism Qualifiers: Laterality: right Lung location: unspecified part of lung Pneumonia type: due to unspecified organism Qualified Code(s): J18.9 - Pneumonia, unspecified organism (6) Bilateral edema of lower extremity: Status: Acute Code(s): R60.0 - Localized edema (7) Medically noncompliant: Status: Acute Code(s): Z91.199 - Patient's noncompliance with other medical treatment and regimen due to unspecified reason (8) LV (left ventricular) mural thrombus: Status: Acute Code(s): I51.3 - Intracardiac thrombosis, not elsewhere classified Meds Home Medications and Allergies Home Medications ?Medication ?Instructions ?Recorded ?Confirmed ?Type apixaban 5 mg tablet (Eliquis) 5 mg PO BID 30 days #60 tabs 06/15/24 Rx aspirin 81 mg tablet,delayed 81 mg PO DAILY 30 days #30 tabs 06/15/24 Rx release atorvastatin 80 mg tablet 80 mg PO DAILY 30 days #30 tabs 06/15/24 Rx bumetanide 2 mg tablet 2 mg PO BID 30 days #60 tabs 06/15/24 Rx clopidogrel 75 mg tablet (Plavix) 75 mg PO DAILY 30 days #30 tabs 06/15/24 Rx metoprolol succinate 50 mg 50 mg PO DAILY 30 days #30 tabs 06/15/24 Rx tablet,extended release 24 hr (Toprol XL) potassium chloride 20 mEq 20 meq PO BID 30 days #60 tabs 06/15/24 Rx tablet,extended release tamsulosin 0.4 mg capsule 0.4 mg PO HS 30 days #30 caps 06/15/24 Rx New Prescriptions to Start Prescriptions: apixaban [Eliquis] Medina,Jace aspirin Medina,Jace atorvastatin Medina,Jace bumetanide Medina,Jace clopidogrel [Plavix] Medina,Jace metoprolol succinate [Toprol XL] Jace Haney potassium chloride Medina,Jace tamsulosin Jace Haney Allergies Allergy/AdvReac Type Severity Reaction Status Date / Time diclofenac (DICLOFENAC) Allergy Unknown Unknown Verified 05/20/24 00:11 allergy reaction Penicillins (PENICILLINS) Allergy Unknown Hives Verified 05/20/24 00:11 propoxyphene (PROPOXYPHENE) Allergy Unknown Unknown Verified 05/20/24 00:11 allergy reaction tramadol (TRAMADOL) Allergy Unknown Vomiting Verified 05/20/24 00:11 Discharge Plan Disposition Patient Disposition: Home, Self-Care Condition: Fair Follow up Plan Follow up with: Luis E Oscar APRN [Nurse Practitioner] - 06/26/24 1:40 pm Adali Ca MD [Physician] - 07/13/24 10:00 am Constantin Bustillo MD [Staff Physician] - 06/20/24 2:15 pm Prescriptions/Medication Reconciliation: New metoprolol succinate [Toprol XL] 50 mg Tablet Extended Release 24 Hr 50 mg PO DAILY 30 Days Qty: 30 0RF Continued atorvastatin 80 mg Tablet 80 mg PO DAILY 30 Days Qty: 30 0RF clopidogrel [Plavix] 75 mg Tablet 75 mg PO DAILY 30 Days Qty: 30 0RF aspirin 81 mg Tablet,Delayed Release (Dr/Ec) 81 mg PO DAILY 30 Days Qty: 30 0RF tamsulosin 0.4 mg Capsule 0.4 mg PO HS 30 Days Qty: 30 0RF Eliquis 5 mg Tablet 5 mg PO BID 30 Days Qty: 60 0RF potassium chloride 20 mEq Tablet Extended Release 20 meq PO BID 30 Days Qty: 60 0RF Changed bumetanide 2 mg Tablet 2 mg PO BID 30 Days Qty: 60 0RF Discontinued metoprolol succinate 25 mg Tablet Extended Release 24 Hr 25 mg PO DAILY pantoprazole 40 mg Tablet,Delayed Release (Dr/Ec) 40 mg PO HS 30 Days Qty: 30 0RF Problem Reconciliation Problems Reviewed?: Yes Patient Discharge Instructions ACTIVITY: Continue current activity DIET: continue same diet Print Language: Bulgarian Providers Primary Care Provider: Provider,Referral Admit Provider: Jace Haney Attending Provider: Jace Haney
[2024-06-15 12:00] VITALS: PULSE 140
== END 2024-06-15 13:11 | disposition home or self-care (01) ==
LOC: ER 01:46 → 2ND 02:02 → ICU 02:19 → 2ND 17:40
PROVIDERS: Nurse Practitioner Family; Admitting Provider Internal Medicine Adolescent Medicine; Emergency Provider Emergency Medicine; Visit Provider Internal Medicine Adolescent Medicine
DX: I11.0 Hypertensive heart disease with heart failure (principal); I50.23 Acute on chronic systolic (congestive) heart failure; I25.119 Atherosclerotic heart disease of native coronary artery with unspecified angina pectoris; J96.01 Acute respiratory failure with hypoxia; E78.5 Hyperlipidemia, unspecified; N18.31 Chronic kidney disease, stage 3a; R60.0 Localized edema; I51.3 Intracardiac thrombosis, not elsewhere classified; F17.290 Nicotine dependence, other tobacco product, uncomplicated; R91.1 Solitary pulmonary nodule; N40.0 Benign prostatic hyperplasia without lower urinary tract symptoms; I13.0 Hypertensive heart and chronic kidney disease with heart failure and stage 1 through stage 4 chronic kidney disease, or unspecified chronic kidney disease; I25.2 Old myocardial infarction; Z88.0 Allergy status to penicillin; Z91.199 Patient's noncompliance with other medical treatment and regimen due to unspecified reason; Z88.6 Allergy status to analgesic agent; Z88.5 Allergy status to narcotic agent; Z79.82 Long term (current) use of aspirin; Z79.02 Long term (current) use of antithrombotics/antiplatelets; Z79.01 Long term (current) use of anticoagulants; Z95.5 Presence of coronary angioplasty implant and graft
CPT/HCPCS: 36415; 71045; 80048; 80053; 80061; 81001; 82803; 83735; 83880; 84100; 84484; 85025; 87040; 93005; 99285; G0378; J0456; J0696; J1939; J7050

== ENCOUNTER 2024-07-06 22:49 | Observation (INO) | payer MEDICARE, MEDICAID, SELFPAY ==
[2024-07-06 22:52] VITALS: BP 104/78; PULSE 85; RESP 18; TEMP 36.5; O2SAT 97; BMI 20.9
--- NOTE | 2024-07-06 23:17 | ED_ITS ---
Discharge Plan Disposition Patient Disposition: Admitted Clinical Impressions Clinical Impression: CHF (congestive heart failure), Fluid overload, Hypokalemia Discharge ED Provider: Quinton Bean General Adult HPI General Chief complaint: Extremity Problem,Nontraumatic Stated complaint: Swelling in Legs Time Seen by Provider: 07/06/24 23:16 Mode of Arrival: EMS Source of Information: Patient and EMS Description of Symptoms (Recalled from ER Triage Doc. by RN): PT ARRIVED VIA EMS FROM HOME WITH C/O BLE SWELLING/PAIN. PT REPORTS CHRONIC SWELLING AND HAS AN APT ON TUESDAY BUT COULDNT WAIT UNTIL THEN. History of Present Illness HPI narrative: 54-year-old male presents to the ER with complaint of bilateral lower extremity swelling and pain. He states he has chronic swelling and approximately once a month has to be admitted to the hospital because of fluid overload, swelling, pain, shortness of breath. Patient reports being compliant with his medications. He does have an extensive cardiac history, CKD stage III, BPH, hyperlipidemia, among other chronic conditions. He denies any recent illness, fevers, chills, chest pain, he states he has shortness of breath that started approximately 24 hours ago. He has no abdominal pain, vomiting, or diarrhea, he does state his abdomen is getting more swollen again. Related Data Previous Rx's ?Medication ?Instructions ?Recorded apixaban 5 mg tablet (Eliquis) 5 mg PO BID 30 days #60 tabs 06/15/24 aspirin 81 mg tablet,delayed 81 mg PO DAILY 30 days #30 tabs 06/15/24 release atorvastatin 80 mg tablet 80 mg PO DAILY 30 days #30 tabs 06/15/24 bumetanide 2 mg tablet 2 mg PO BID 30 days #60 tabs 06/15/24 clopidogrel 75 mg tablet (Plavix) 75 mg PO DAILY 30 days #30 tabs 06/15/24 metoprolol succinate 50 mg 50 mg PO DAILY 30 days #30 tabs 06/15/24 tablet,extended release 24 hr (Toprol XL) potassium chloride 20 mEq 20 meq PO BID 30 days #60 tabs 06/15/24 tablet,extended release tamsulosin 0.4 mg capsule 0.4 mg PO HS 30 days #30 caps 06/15/24 Allergies Allergy/AdvReac Type Severity Reaction Status Date / Time diclofenac (DICLOFENAC) Allergy Unknown Unknown Verified 07/06/24 22:56 allergy reaction Penicillins (PENICILLINS) Allergy Unknown Hives Verified 07/06/24 22:56 propoxyphene (PROPOXYPHENE) Allergy Unknown Unknown Verified 07/06/24 22:56 allergy reaction tramadol (TRAMADOL) Allergy Unknown Vomiting Verified 07/06/24 22:56 [facility] Disclaimer: The information contained in this section may have been updated after the patient was seen, as this information can be updated by other users. Medical History (Updated 07/07/24 @ 00:27 by Carmen Dickerson MD) Medically noncompliant Bilateral edema of lower extremity CKD stage 3a, GFR 45-59 ml/min CAD (coronary artery disease) Acute on chronic HFrEF (heart failure with reduced ejection fraction) Pneumonia Chest pain Pulmonary infiltrate Hyponatremia Bed bug bite CHF (congestive heart failure) Right atrial thrombus Acute decompensated heart failure Fatigue Nodule of left lung Severe left ventricular systolic dysfunction (LVSD) Transaminitis RENAY (acute kidney injury) Anasarca LV (left ventricular) mural thrombus Acute hypoxemic respiratory failure Cardiogenic shock Non-STEMI (non-ST elevated myocardial infarction) Acute HFrEF (heart failure with reduced ejection fraction) Pneumonia Pleural effusion, bilateral Vitamin B12 deficiency Allergic rhinitis BPH (benign prostatic hyperplasia) Hyperlipidemia Insomnia Partial tear of right Achilles tendon Surgical History History of back surgery Family History Other No significant family history Social History Smoking Status: Current some day smoker tobacco type: smokeless tobacco alcohol intake: never substance use type: former substance user and heroin current occupational status: unemployed Travel in the last 8 weeks: None Other Medical History Have you received the Flu Vaccine for this season: No Have you received the Pneumonia Vaccine: No ROS Obtained: Yes Systems reviewed as appropriate & no additional complaints except as documented Per HPI Physical Exam General General appearance: alert and in no apparent distress Comment: Chronically ill-appearing but not in extremis Head Head exam: atraumatic and normocephalic Eye Eye exam: Present PERRL and EOMI ENT ENT exam: Present mucous membranes moist Neck Neck exam: Present normal inspection and full ROM Chest Chest inspection: Present symmetric chest wall rise Respiratory Respiratory exam: Present normal lung sounds bilaterally and other (Saturating 100% on room air); Absent respiratory distress, wheezes or stridor Cardiovascular Cardiovascular exam: Present regular rate and normal rhythm Abdominal Exam Abdominal exam: Present soft; Absent distention, tenderness, guarding or rebound Extremities Exam Extremities exam: Present full ROM, tenderness (Diffuse discomfort with palpation without traumatic findings), normal capillary refill and edema (Diffuse pitting edema throughout the lower extremities all the way up to the hips) Neurological Exam Neurological exam: Present alert and oriented X3; Absent motor sensory deficit Psychiatric Psychiatric exam: Present normal affect and normal mood Skin Skin exam: Present warm and dry Medical Decision Making Medical Records Medical records reviewed: Yes I reviewed the patient's medical records. Screening: Per USPSTF and CDC recommendations, given the prevalence of disease in our region, it is our hospital?s policy to screen for HIV and viral Hepatitis for all patients aged 18 and over and those with ongoing risk factors. MR Comment: Patient recently admitted to the hospital for fluid overload, abdominal swelling, extremity swelling, shortness of breath. Admitted for worsening heart failure symptoms. He has a previous LV thrombus on Eliquis. Matty Inquiry Pt receiving controlled substance: No Vital Signs: 07/06/24 22:52 Temperature 97.7 F Temperature Source Oral Pulse Rate [Apical] 85 Respiratory Rate 18 Blood Pressure [Right Arm] 104/78 L Blood Pressure Mean [Right Arm] 86 02 Sat by Pulse Oximetry 97 Oxygen Delivery Method Room Air Lab Data Lab Results 07/06/24 22:56: WBC 6.4, RBC 3.44 L, Hgb 10.1 L, Hct 30.4 L, MCV 88.4, MCH 29.4, MCHC 33.2, RDW 20.6 H, Plt Count 315, MPV 10.4, Neut % (Auto) 69.0, Lymph % (Auto) 14.7, [place] % (Auto) 12.3 H, Eos % (Auto) 3.0, Baso % (Auto) 0.5, Neut # (Auto) 4.4, Lymph # (Auto) 0.9, [place] # (Auto) 0.8, Eos # (Auto) 0.2, Baso # (Auto) 0.0, Sodium 134 L, Potassium 2.4 L*, Chloride 90 L, Carbon Dioxide 36 H, Anion Gap 10.4, BUN 37 H, Creatinine 1.70 H, Estimated Creat Clear 49, Estimated GFR 42 L, Est GFR ( Amer) 51 L, Glucose 102 H, Calcium 8.5, Total Bilirubin 2.0 H, AST 48, ALT 91 H, Alkaline Phosphatase 266 H, Troponin I 0.03, NT-Pro-B Natriuret Pep 3190 H, Total Protein 6.3, Albumin 3.4 L 07/06/24 23:40: VBG pH 7.45 H, VBG pCO2 47.7, VBG pO2 33.5, VBG HCO3 32.7 H, VBG Total CO2 34.2 H, VBG O2 Saturation 60.6, VBG Base Excess 8.8 H, VBG Lactic Acid 1.9 07/06/24 22:56 07/06/24 22:56 Orders (Tests/Meds): ED MEDICATIONS Generic Name Dose Route Start Last Admin Trade Name Freq PRN Reason Stop Dose Admin Acetaminophen 650 mg 07/07/24 00:27 Acetaminophen 325mg Tab PO 08/06/24 00:26 Q4HP PRN Fever or Mild Pain (1-3) Potassium Chloride/Water 100 mls @ 100 mls/hr 07/06/24 23:45 07/06/24 23:52 Potassium Chloride 10meq/100ml Ivpb IV 07/07/24 02:44 100 mls/hr Q1H NOVA Administration Lactated Ringer's 500 mls @ 250 mls/hr 07/07/24 00:13 07/07/24 00:18 Lactated Ringer's 500ml IV 07/07/24 02:12 250 mls/hr .Q2H ONE Administration Pantoprazole Sodium 40 mg 07/07/24 21:00 Pantoprazole 40mg Tablet PO 08/06/24 20:59 HS NOVA Discontinued Medications Generic Name Dose Route Start Last Admin Trade Name Freq PRN Reason Stop Dose Admin Bumetanide 1 mg 07/07/24 00:23 Bumetanide 1mg/4ml Vial IV 07/07/24 00:24 ONCE ONE Potassium Chloride 40 meq 07/06/24 23:37 07/06/24 23:52 Potassium Chloride 20meq Tab PO 07/06/24 23:38 40 meq ONCE ONE Administration ORDERS Category Date Time Status POCUS Point of Care (ER Only) Stat Exams 07/06/24 23:18 Completed XR chest portable Stat Exams 07/06/24 23:18 Taken Basic Metabolic Panel AMLAB Lab 07/07/24 06:00 Ordered Basic Metabolic Panel AMLAB Lab 07/08/24 06:00 Ordered Basic Metabolic Panel AMLAB Lab 07/09/24 06:00 Ordered Complete Blood Count Auto Diff AMLAB Lab 07/07/24 06:00 Ordered Complete Blood Count Auto Diff AMLAB Lab 07/08/24 06:00 Ordered Complete Blood Count Auto Diff AMLAB Lab 07/09/24 06:00 Ordered Complete Blood Count Auto Diff Stat Lab 07/06/24 22:56 Completed Comprehensive Metabolic Panel Stat Lab 07/06/24 22:56 Results Magnesium AMLAB Lab 07/07/24 06:00 Ordered Magnesium Stat Lab 07/07/24 Received NT Pro Brain Natriuretic Pep. Stat Lab 07/06/24 22:56 Results Phosphorous AMLAB Lab 07/07/24 06:00 Ordered Troponin I Q3H Lab 07/07/24 02:30 Ordered Troponin I Q3H Lab 07/07/24 05:30 Ordered Troponin I Stat Lab 07/06/24 23:18 Results VBG [Venous Blood Gas] Stat RT 07/06/24 23:40 Completed Medical Decision Narrative: In summary, this 54-year-old male with comorbidities described in the HPI which are not at goal therapy presents to the emergency department today with leg swelling, pain, shortness of breath. On initial evaluation patient is hemodynamically stable, afebrile, saturating well on room air, he has significant peripheral edema in the bilateral lower extremities despite reporting being compliant with medications. Differential diagnosis includes but is not limited to ACS, PE, fluid overload, I considered infectious etiology but appreciate no evidence of cellulitis or other infectious findings in the legs, lungs are clear bilaterally. [id number] ultrasound performed by me at bedside demonstrates biventricular dilation with grossly reduced EF but no pericardial effusion. See procedure note for details. Based on these concerns, I ordered serum labs, cardiac workup. ECG personally interpreted demonstrates normal sinus rhythm, rate 80, normal axis, normal MT and QTc, no STEMI. Labs personally reviewed demonstrate no leukocytosis, anemia slightly worse than previous but nonactionable, platelets normal, VBG with pH 7.45, no hypercarbia or hypoxia, normal VBG lactic, CMP with hyponatremia, hypochloremia, patient has significant hypokalemia which I believe is likely contributing to his lower extremity pain. He also has findings of chronic kidney dysfunction creatinine 1.7 which appears to be roughly baseline for this patient. BNP 3190 actually improved from previous admissions, troponin 0.03, improved from previous admissions.. Chest x-ray personally interpreted does not demonstrate lobar infiltrate or large pleural effusion. See radiology read for final interpretation. Patient was complaining about pain from the IV potassium. He is receiving both IV and oral potassium for repletion of hypokalemia. Magnesium is pending. I added slow LR infusion to help ease pain from the peripheral IV infusion of potassium. Patient is also receiving IV Bumex to treat fluid overload. Patient requires admission for continued electrolyte correction as well as treatment of fluid overload. I discussed this case with the hospitalist who graciously accepted the patient for admission for these reasons. Patient admitted in stable condition. Critical Care Critical Care Time Critical Care Time: No
--- NOTE | 2024-07-06 23:18 | XR_ITS ---
PROCEDURE INFORMATION: Exam: XR Chest Exam date and time: 07/06/2024 11:41 PM Age: 54 years old Clinical indication: Other: Peripheral edema TECHNIQUE: Imaging protocol: Radiologic exam of the chest. Views: 1 view. COMPARISON: CR XR CHEST PORTABLE 06/14/2024 12:54 AM FINDINGS: Lungs: Unremarkable. No consolidation. Pleural spaces: Unremarkable. No pleural effusion. No pneumothorax. Heart/Mediastinum: Unremarkable. No cardiomegaly. Bones/joints: Unremarkable. IMPRESSION: No acute findings.
[2024-07-06 23:23] LABS: Basophils % 0.5 % (0.1-2.0); Eosinophils # 0.2 K/mm3 (0.0-0.4); Hematocrit 30.4 % (42.0-52.0); Hemoglobin 10.1 g/dL (14.1-18.0); Lymphocytes # 0.9 K/mm3 (0.7-4.5); Lymphocytes % 14.7 % (10-50); Mean Corpuscular HGB Conc 33.2 g/dL (31.8-35.4); Mean Corpuscular Hemoglobin 29.4 pg (27.0-31.2); Mean Corpuscular Volume 88.4 fl (80-94); Mean Platelet Volume 10.4 fl (7.4-10.4); Monocytes # 0.8 K/mm3 (0.1-1.0); Monocytes % 12.3 % (1.7-9.3); Neutrophils # 4.4 K/mm3 (1.8-7.8); Platelet Count 315 K/mm3 (142-424); Red Blood Count 3.44 M/mm3 (4.60-6.20); Red Cell Distribution Width 20.6 % (11.5-17.5); White Blood Count 6.4 K/mm3 (4.8-10.8)
[2024-07-06 23:25] LABS: Albumin Level 3.4 g/dl (3.5-5.0); Chloride 90 mmol/L (98-107); Sodium 134 mmol/L (136-145)
[2024-07-06 23:28] LABS: Alanine Aminotransferase 91 U/L (12-78); Aspartate Amino Transferase 48 U/L (17-59); Blood Urea Nitrogen 37 mg/dl (9-20); Carbon Dioxide 36 mmol/L (22.0-30.0); Creatinine Clearance Estimated 49 mL/min (50-200); Estimated Glomerular Filt Rate 42 ml/min (>60); GFR (African American) 51 ML/MIN (>60)
[2024-07-06 23:29] LABS: Alkaline Phosphatase 266 U/L (38-126); Anion Gap 10.4 mEq/L (5-15); Calcium 8.5 mg/dl (8.4-10.2); Glucose 102 mg/dl (74-100); Potassium 2.4 mmoL/L (3.5-5.1); Total Protein,Serum 6.3 g/dl (6.3-8.2)
--- NOTE | 2024-07-06 23:29 | PC.NURSE ---
Dr. Bean notified of critical k + 2.4
--- NOTE | 2024-07-06 23:32 | ECG_ITS ---
APPROVED REPORT Exam: Resting ECG HR:80 bpm ECG Measurements Heart Rate 80 AXES SD 182 P 66 QRSd 105 QRS -14 QT 404 T 99 QTc 439 Conclusion SINUS RHYTHM POSSIBLE LEFT ATRIAL ENLARGEMENT [-0.1mV P-WAVE IN V1/V2] MODERATE ST DEPRESSION [0.05+ mV ST DEPRESSION] ABNORMAL QRS-T ANGLE [QRS-T AXIS DIFFERENCE > 60] ABNORMAL ECG No STEMI Electronically signed by : LENNY ABDALLA, 07/07/2024 07:00:02
[2024-07-06 23:38] LABS: NT Pro Brain Natriuretic Pep. 3190 pg/mL (0-125)
[2024-07-06 23:40] LABS: Troponin I 0.03 ng/ml (0.00-0.034)
[2024-07-06] MEDS: KCl 10mEq/100ml 100 ML 100 MEQ IV (23:52)
[2024-07-06] MEDS: POTASSIUM CHLORIDE 20MEQ TAB 40 MEQ PO (23:52)
[2024-07-07] VITALS (7 sets, daily range): BP systolic 102–115; BP diastolic 69–85; PULSE 75–90; RESP 16–19; TEMP 36.4–36.6; O2SAT 92–100; BMI 25.0
[2024-07-07] MEDS: RINGERS SOLUTION,LACTATED 500 ML 250 ML IV (00:18)
[2024-07-07 00:23] LABS: Lactate Venous 1.9 mmol/L (0.4-2.0); VBG Base Excess 8.8 mmol/L (-2.4-2.3); VBG HCO3 32.7 mmol/L (23-30); VBG Oxygen Saturation 60.6 % (50-70); VBG PCO2 47.7 mmol/L (35-51); VBG PH 7.45 mmol/L (7.31-7.41); VBG PO2 33.5 mmol/L (28-40); VBG Total CO2 34.2 mmol/L (23-27)
--- NOTE | 2024-07-07 00:29 | PC.NURSE ---
called retail warehouse associate for bed assignment at this time. Pt being admitted to hospitalist with dx hypokalemia and chf
[2024-07-07 00:33] LABS: Albumin/Globulin Ratio 0.9 (1.1-1.8); Globulin 3.6 g/dL (1.3-3.2)
--- NOTE | 2024-07-07 00:37 | P.HP_ITS ---
<Statement entered by John Parikh MD - 07/11/24 11:08> I personally examined patient and agree with the plan of care outlined by the [employer]. History of Present Illness *Admission Date: 07/07/24 *Reason for visit:: Bilateral lower extremity swelling and pain *History of present illness: A 54-year-old male, well-known to this facility, with a history of severe heart failure (EF 15-20%, diagnosed 03/30/2024), CKD stage III, BPH, hyperlipidemia, and hypertension presents to the emergency department with bilateral lower extremity swelling and pain. He reports chronic swelling, requiring monthly admissions for fluid overload, pain, and shortness of breath, and states he is compliant with his medications. He notes new shortness of breath starting 24 hours ago and worsening abdominal swelling, but denies recent illness, fevers, chills, chest pain, abdominal pain, vomiting, or diarrhea. History was obtained from the patient. On arrival, he is hemodynamically stable, afebrile, saturating well on room air, alert, oriented, with significant bilateral lower extremity edema. The differential diagnosis includes ACS, PE, fluid overload, and infection (though no cellulitis or pulmonary findings noted). Workup included serum labs, cardiac studies, ECG, chest X-ray, and [id number] ultrasound. Labs showed WBC 6.4 K/?L, Hgb 10.1 g/dL (worsened but stable), creatinine 1.70 mg/dL (eGFR 42 mL/min/1.73m?, near baseline), Na 134 mmol/L, K+ 2.4 mmol/L (hypokalemia), BNP 3190 pg/mL (improved from prior), troponin 0.03 ng/mL, and VBG with pH 7.45, pCO2 47.7 mmHg, HCO3 32.7 mmol/L. ECG revealed normal sinus rhythm at 80 bpm, no STEMI. Chest X-ray showed no infiltrate or large effusion. Bedside ultrasound demonstrated biventricular dilation with grossly reduced EF, no pericardial effusion. He received IV and oral potassium for hypokalemia (noted IV pain), slow LR infusion to ease potassium administration discomfort, and IV Bumex for fluid overload. On reassessment, he reported persistent leg pain and swelling. Given his history, exam, and workup?particularly severe HF, edema, hypokalemia, and improved BNP?this likely represents fluid overload from CHF, with hypokalemia contributing to pain. The hospitalist was consulted for admission, and the allyssa ent agreed to inpatient management. [facility] Disclaimer: The information contained in this section may have been updated after the patient was seen, as this information can be updated by other users. Medical History Medically noncompliant Bilateral edema of lower extremity CKD stage 3a, GFR 45-59 ml/min CAD (coronary artery disease) Acute on chronic HFrEF (heart failure with reduced ejection fraction) Pneumonia Chest pain Pulmonary infiltrate Hyponatremia Bed bug bite CHF (congestive heart failure) Right atrial thrombus Acute decompensated heart failure Fatigue Nodule of left lung Severe left ventricular systolic dysfunction (LVSD) Transaminitis RENAY (acute kidney injury) Anasarca LV (left ventricular) mural thrombus Acute hypoxemic respiratory failure Cardiogenic shock Non-STEMI (non-ST elevated myocardial infarction) Acute HFrEF (heart failure with reduced ejection fraction) Pneumonia Pleural effusion, bilateral Vitamin B12 deficiency Allergic rhinitis BPH (benign prostatic hyperplasia) Hyperlipidemia Insomnia Partial tear of right Achilles tendon Surgical History History of back surgery Family History Other No significant family history Social History Smoking Status: Unknown if ever smoked alcohol intake: never substance use type: former substance user and heroin current occupational status: unemployed Travel in the last 8 weeks: None Other Medical History Have you received the Flu Vaccine for this season: No Have you received the Pneumonia Vaccine: No Review of Systems Review of Systems Review of systems (narrative): 13 point review of systems negative except as listed in HPI Meds Home Medications and Allergies Home Medications ?Medication ?Instructions ?Recorded ?Confirmed ?Type apixaban 5 mg tablet (Eliquis) 5 mg PO BID 30 days #60 tabs 06/15/24 Rx aspirin 81 mg tablet,delayed 81 mg PO DAILY 30 days #30 tabs 06/15/24 Rx release atorvastatin 80 mg tablet 80 mg PO DAILY 30 days #30 tabs 06/15/24 Rx bumetanide 2 mg tablet 2 mg PO BID 30 days #60 tabs 06/15/24 Rx clopidogrel 75 mg tablet (Plavix) 75 mg PO DAILY 30 days #30 tabs 06/15/24 Rx metoprolol succinate 50 mg 50 mg PO DAILY 30 days #30 tabs 06/15/24 Rx tablet,extended release 24 hr (Toprol XL) potassium chloride 20 mEq 20 meq PO BID 30 days #60 tabs 06/15/24 Rx tablet,extended release tamsulosin 0.4 mg capsule 0.4 mg PO HS 30 days #30 caps 06/15/24 Rx New Prescriptions to Start Prescriptions: Allergies Allergy/AdvReac Type Severity Reaction Status Date / Time diclofenac (DICLOFENAC) Allergy Unknown Unknown Verified 07/06/24 22:56 allergy reaction Penicillins (PENICILLINS) Allergy Unknown Hives Verified 07/06/24 22:56 propoxyphene (PROPOXYPHENE) Allergy Unknown Unknown Verified 07/06/24 22:56 allergy reaction tramadol (TRAMADOL) Allergy Unknown Vomiting Verified 07/06/24 22:56 Exam Data for Last 24 hours Vital signs and Labs for Last 24 Hours: Temp Pulse Resp BP Pulse Ox O2 Del Method 97.7 F 85 18 104/78 L 97 Room Air 07/06/24 22:52 07/06/24 22:52 07/06/24 22:52 07/06/24 22:52 07/06/24 22:52 07/06/24 22:52 Laboratory Results - last 24 hr 07/06/24 22:56: WBC 6.4, RBC 3.44 L, Hgb 10.1 L, Hct 30.4 L, MCV 88.4, MCH 29.4, MCHC 33.2, RDW 20.6 H, Plt Count 315, MPV 10.4, Neut % (Auto) 69.0, Lymph % (Auto) 14.7, [place] % (Auto) 12.3 H, Eos % (Auto) 3.0, Baso % (Auto) 0.5, Neut # (Auto) 4.4, Lymph # (Auto) 0.9, [place] # (Auto) 0.8, Eos # (Auto) 0.2, Baso # (Auto) 0.0, Sodium 134 L, Potassium 2.4 L*, Chloride 90 L, Carbon Dioxide 36 H, Anion Gap 10.4, BUN 37 H, Creatinine 1.70 H, Estimated Creat Clear 49, Estimated GFR 42 L, Est GFR ( Amer) 51 L, Glucose 102 H, Calcium 8.5, Total Bilirubin 2.0 H, AST 48, ALT 91 H, Alkaline Phosphatase 266 H, Troponin I 0.03, NT-Pro-B Natriuret Pep 3190 H, Total Protein 6.3, Albumin 3.4 L, Globulin 3.6 H, Albumin/Globulin Ratio 0.9 L 07/06/24 23:40: VBG pH 7.45 H, VBG pCO2 47.7, VBG pO2 33.5, VBG HCO3 32.7 H, VBG Total CO2 34.2 H, VBG O2 Saturation 60.6, VBG Base Excess 8.8 H, VBG Lactic Acid 1.9 I & O for Last 24 hours: Intake & Output 07/04/24 07/05/24 07/06/24 07/07/24 23:59 23:59 23:59 23:59 Weight 70.307 kg Constitutional Constitutional: no acute distress *Routine HEENT Exam Head: Present normocephalic Eye: Present EOMI and PERRL ENT: Present mucous membranes moist *Routine Neck Exam Neck: Present supple; Absent lymphadenopathy *Routine Respiratory Exam Respiratory: Present CTA bilaterally *Routine Cardiovascular Exam Cardiovascular: Present RRR *Routine Abdominal Exam Abdominal: Present soft, normoactive bowel sounds and distended; Absent tendern ess *Routine Rectal Exam Rectal:: deferred *Routine Genitalia Exam Genitalia:: deferred *Routine Extremities Exam Extremities: Present edema; Absent cyanosis or clubbing *Routine Skin Exam Skin: Present warm; Absent rash *Routine Neurological Exam Neurological: Present alert and oriented X3 Assessment and Plan *Assessment and plan (1) Hypokalemia: Status: Acute Category: Medical Code(s): E87.6 - Hypokalemia (2) CHF (congestive heart failure): Status: Acute Category: Medical Code(s): I50.9 - Heart failure, unspecified (3) Fluid overload: Status: Acute Category: Medical Code(s): E87.70 - Fluid overload, unspecified (4) Medically noncompliant: Status: Acute Category: Medical Code(s): Z91.199 - Patient's noncompliance with other medical treatment and regimen due to unspecified reason Plan * Fluid Overload secondary to Severe Heart Failure (HFrEF) * Bilateral LE swelling, pain, SOB x 24h, abdominal swelling; HFrEF (EF 15- 20%, 03/2024), BNP 3190 pg/mL (improved from prior), bedside US with biventricular dilation and reduced EF; compliant with meds (unspecified), CKD limits diuresis; no fever, infection signs. * Continue IV Bumex 1 mg x 1 now, then 1 mg q12h; target urine output 200-300 mL/hr initially, cap at 1-2 L/day; daily weights, strict I/Os with Calles if needed. * Supplemental O2 if SpO2 <92% on RA; continuous pulse oximetry; monitor lung sounds, edema q8h. * Has recent echo, hold echo/cardiology consult at this time * Hold additional fluids beyond slow LR infusion (for K+ comfort) unless hypotension (SBP <90 mmHg); adjust diuretics if dyspnea worsens. * Hypokalemia, Likely Diuretic-Induced * K+ 2.4 mmol/L (severe), LE pain possibly related; on furosemide, metolazone, or triamterene-HCTZ likely (meds unspecified); receiving IV/oral K+ repletion, no arrhythmia on ECG (sinus, 80 bpm). * Continue IV KCl 40 mEq over 4h via central line if possible (peripheral pain noted), then oral KCl 20 mEq q8h; target K+ >3.5 mmol/L; recheck K+ q6h until >3.0 mmol/L. * Mg2+ pending; give IV MgSO4 2 g if <2.0 mg/dL to aid K+ retention; * Chronic Kidney Disease (CKD), Stage III, Stable * Cr 1.70 mg/dL (eGFR 42 mL/min/1.73m?), BUN 37 mg/dL, near baseline per prior visits; CKD III, HFrEF, HTN; no acute worsening (stable despite Bumex start). * Monitor Cr, BUN q12h x 48h; avoid nephrotoxins adjust renally cleared meds * Chronic Anemia, Worsening but Stable * Hgb 10.1 g/dL (down from prior, unspecified), Hct 30.4%, RDW 20.6%; likely anemia of chronic disease (CKD, HF), no bleeding; nonactionable now. * Monitor Hgb q24h; transfuse if <7 g/dL or symptomatic; iron studies, ferritin pending to assess stores. * Continue outpatient management unless acute drop (e.g., >1 g/dL in 24h). * Hepatic Congestion, Likely from HFrEF * Total bilirubin 2.0 mg/dL, AST 48 U/L, ALT 91 U/L, alk phos 266 U/L (elevated); no abdominal pain, likely passive congestion from HF; albumin 3.4 g/dL (mildly low). * Monitor LFTs q24h; liver US if bilirubin >3 mg/dL or worsening; optimize HF with Bumex to reduce congestion. * GI consult if LFTs rise further (e.g., ALT >150 U/L) or jaundice develops. * Benign Prostatic Hyperplasia (BPH), Stable * History of BPH, no urinary symptoms noted; CKD may relate; * Assess for urinary retention (bladder scan if oliguria); continue home BPH meds * Chronic Comorbidities * HTN, hyperlipidemia; stable, no acute impact; sinus rhythm, troponin 0.03 ng/mL (improved), no ACS signs; hypokalemia, edema dominate now. * Continue home HTN/lipid meds; monitor BP q4h, lipids outpatient. * Complete troponin trend * Disposition * 54M with HFrEF (EF 15-20%), CKD III, admitted for fluid overload, hypokalemia; high risk for decompensation; on IV Bumex, K+ repletion, LR infusion. * Heparin 5000 U SQ q8h for DVT prophylaxis; pantoprazole 40 mg PO daily PRN. * Daily CBC, BMP, LFTs; BNP q24h; CXR q24h if SOB worsens; cardiology consult if worsening * Hospitalist follow-up; PT/OT for mobility once stable. * Admit to telemetry; ICU if hemodynamic instability or respiratory failure occurs.
--- NOTE | 2024-07-07 00:41 | PC.NURSE ---
report called to Sydney NIEVES on 2nd floor.
[2024-07-07 00:48] LABS: Magnesium 1.4 mg/dl (1.6-2.3)
--- NOTE | 2024-07-07 00:57 | PC.NURSE ---
Patient arrived to floor via wheelchair from ED at 00:55.
[2024-07-07 01:01] LABS: D-Dimer 1.75 ug/mL (0.0-0.5)
[2024-07-07] MEDS: KCl 10mEq/100ml 100 ML 100 MEQ IV ×2 (01:03→02:13)
--- NOTE | 2024-07-07 01:12 | PC.NURSE ---
Patient is unsure of what medications he takes at home, when asking about meds listed on the external, patient does not recall names of medications he takes. Patient lives home alone, no one to call to get information.
[2024-07-07] MEDS: BUMETANIDE 1MG/4ML VIAL 1 MG IV (01:35)
[2024-07-07] MEDS: ACETAMINOPHEN 325MG TAB 650 MG PO (02:53)
--- NOTE | 2024-07-07 03:27 | PC.NURSE ---
Pt arrived on unit this shift. He is AOx4. Received 3 runs of K+ due to critically low K+ of 2.4. Pt has +4 pitting edema to le lower extremities. He states that they hurt and are tender. Pt received 1x dose of bumex per order. Respirations even and unlabored. 20g LAC saline locked. He is currently resting in low, locked bed with call light in reach.
[2024-07-07 03:29] LABS: Troponin I 0.03 ng/ml (0.00-0.034)
[2024-07-07 08:48] LABS: Basophils # 0.1 K/mm3 (0-0.2); Basophils % 0.9 % (0.1-2.0); Eosinophils # 0.2 K/mm3 (0.0-0.4); Eosinophils % 3.7 % (0.1-12.0); Hematocrit 32.4 % (42.0-52.0); Hemoglobin 10.6 g/dL (14.1-18.0); Lymphocytes # 1.5 K/mm3 (0.7-4.5); Lymphocytes % 22.6 % (10-50); Mean Corpuscular HGB Conc 32.7 g/dL (31.8-35.4); Mean Corpuscular Hemoglobin 29.4 pg (27.0-31.2); Mean Platelet Volume 10.3 fl (7.4-10.4); Monocytes # 0.6 K/mm3 (0.1-1.0); Monocytes % 9.3 % (1.7-9.3); Neutrophils # 4.2 K/mm3 (1.8-7.8); Neutrophils % 63.2 % (37.0-80.0); Platelet Count 327 K/mm3 (142-424); Red Cell Distribution Width 21.1 % (11.5-17.5); White Blood Count 6.6 K/mm3 (4.8-10.8)
[2024-07-07 08:52] LABS: Chloride 90 mmol/L (98-107)
[2024-07-07 08:53] LABS: Sodium 136 mmol/L (136-145)
[2024-07-07 08:55] LABS: Anion Gap 15.9 mEq/L (5-15); Blood Urea Nitrogen 33 mg/dl (9-20); Carbon Dioxide 33 mmol/L (22.0-30.0); Creatinine Clearance Estimated 56 mL/min (50-200); Estimated Glomerular Filt Rate 40 ml/min (>60); GFR (African American) 48 ML/MIN (>60)
[2024-07-07 08:56] LABS: Calcium 8.9 mg/dl (8.4-10.2); Glucose 214 mg/dl (74-100); Magnesium 1.5 mg/dl (1.6-2.3)
[2024-07-07 09:04] LABS: Potassium 2.9 mmoL/L (3.5-5.1)
[2024-07-07 09:08] LABS: Troponin I 0.03 ng/ml (0.00-0.034)
[2024-07-07] MEDS: MAGNESIUM SULFATE IN WATER 2 GM/50 ML PIGGYBACK IV ×2 (10:19→11:20)
[2024-07-07] MEDS: POTASSIUM CHLORIDE 20MEQ TAB 40 MEQ PO ×2 (10:22→13:39)
[2024-07-07] MEDS: APIXABAN 5MG TABLET 5 MG PO (10:22)
[2024-07-07] MEDS: ASPIRIN EC 81MG TABLET 81 MG PO (10:22)
[2024-07-07] MEDS: METOPROLOL SUCCINATE XL 50MG TABLET 50 MG PO (10:22)
[2024-07-07] MEDS: CLOPIDOGREL 75MG TAB 75 MG PO (10:22)
[2024-07-07] MEDS: BUMETANIDE 1 MG TABLET 2 MG PO (10:22)
--- NOTE | 2024-07-07 14:08 | EXP.DC.SUM ---
General Admission date:: 07/07/24 HPI HPI HPI: A 54-year-old male, well-known to this facility, with a history of severe heart failure (EF 15-20%, diagnosed 03/30/2024), CKD stage III, BPH, hyperlipidemia, and hypertension presents to the emergency department with bilateral lower extremity swelling and pain. He reports chronic swelling, requiring monthly admissions for fluid overload, pain, and shortness of breath, and states he is compliant with his medications. He notes new shortness of breath starting 24 hours ago and worsening abdominal swelling, but denies recent illness, fevers, chills, chest pain, abdominal pain, vomiting, or diarrhea. History was obtained from the patient. On arrival, he is hemodynamically stable, afebrile, saturating well on room air, alert, oriented, with significant bilateral lower extremity edema. The differential diagnosis includes ACS, PE, fluid overload, and infection (though no cellulitis or pulmonary findings noted). Workup included serum labs, cardiac studies, ECG, chest X-ray, and [id number]-[id number] ultrasound. Labs showed WBC 6.4 K/?L, Hgb 10.1 g/dL (worsened but stable), creatinine 1.70 mg/dL (eGFR 42 mL/min/1.73m?, near baseline), Na 134 mmol/L, K+ 2.4 mmol/L (hypokalemia), BNP 3190 pg/mL (improved from prior), troponin 0.03 ng/mL, and VBG with pH 7.45, pCO2 47.7 mmHg, HCO3 32.7 mmol/L. ECG revealed normal sinus rhythm at 80 bpm, no STEMI. Chest X-ray showed no infiltrate or large effusion. Bedside ultrasound demonstrated biventricular dilation with grossly reduced EF, no pericardial effusion. He received IV and oral potassium for hypokalemia (noted IV pain), slow LR infusion to ease potassium administration discomfort, and IV Bumex for fluid overload. On reassessment, he reported persistent leg pain and swelling. Given his history, exam, and workup?particularly severe HF, edema, hypokalemia, and improved BNP?this likely represents fluid overload from CHF, with hypokalemia contributing to pain. The hospitalist was consulted for admission, and the patient agreed to inpatient management. Hospital Course Hospital Course Hospital Course: Manuel Gonsales is a 53-year-old who presents with worsening lower extremity swelling, pain and was admitted for HFrEF exaberation and hypokalemia. #HFrEF exacerbation #Hypokalemia ? BNP 7190, lower extremity pitting edema. Patient reports adherence to Bumex 2mg BID. - Initial potassium 2.4, improved to 2.6 overnight with repletion. Possible acute overuse of diuretics but patient denies this. ? Improved with IV Bumex diuresis. Discharged with Bumex 2 mg daily. Continue metoprolol succinate 25 mg. ? Hold rest of GDMT at this time given soft pressure. Patient states he has a follow-up with cardiology this coming week. - Patient did not want to wait to recheck potassium, and decided leave AMA understanding the risks of doing so. #CAD s/p 5 stents - Continue aspirin 81 mg, Plavix 75 mg, atorvastatin 80 mg, metoprolol succinate 25 mg. ? Advised to follow-up with cardiology within 1 week. #LV thrombus ? Continue Eliquis 5 mg twice daily. #Left mid lung infiltrate ? Discharged with levofloxacin for 3 more days. #BPH ? Continue home tamsulosin. Total time spent on discharge: 33 minutes on chart review, counseling, documentation, and direct care with patient. Exam Data for Last 24 hours Vital signs and Labs for Last 24 Hours: Temp Pulse Resp BP Pulse Ox O2 Del Method 97.9 F 80 16 115/85 99 Room Air 07/07/24 11:41 07/07/24 12:00 07/07/24 11:41 07/07/24 11:41 07/07/24 11:41 07/07/24 11:41 Laboratory Results - last 24 hr 07/06/24 22:56: WBC 6.4, RBC 3.44 L, Hgb 10.1 L, Hct 30.4 L, MCV 88.4, MCH 29.4, MCHC 33.2, RDW 20.6 H, Plt Count 315, MPV 10.4, Neut % (Auto) 69.0, Lymph % (Auto) 14.7, [place] % (Auto) 12.3 H, Eos % (Auto) 3.0, Baso % (Auto) 0.5, Neut # (Auto) 4.4, Lymph # (Auto) 0.9, [place] # (Auto) 0.8, Eos # (Auto) 0.2, Baso # (Auto) 0.0, Sodium 134 L, Potassium 2.4 L*, Chloride 90 L, Carbon Dioxide 36 H, Anion Gap 10.4, BUN 37 H, Creatinine 1.70 H, Estimated Creat Clear 49, Estimated GFR 42 L, Est GFR ( Amer) 51 L, Glucose 102 H, Calcium 8.5, Total Bilirubin 2.0 H, AST 48, ALT 91 H, Alkaline Phosphatase 266 H, Troponin I 0.03, NT-Pro-B Natriuret Pep 3190 H, Total Protein 6.3, Albumin 3.4 L, Globulin 3.6 H, Albumin/Globulin Ratio 0.9 L 07/06/24 23:40: VBG pH 7.45 H, VBG pCO2 47.7, VBG pO2 33.5, VBG HCO3 32.7 H, VBG Total CO2 34.2 H, VBG O2 Saturation 60.6, VBG Base Excess 8.8 H, VBG Lactic Acid 1.9 07/06/24 23:56: D-Dimer 1.75 H 07/07/24 02:58: Troponin I 0.03 07/07/24 08:40: WBC 6.6, RBC 3.60 L, Hgb 10.6 L, Hct 32.4 L, MCV 90.0, MCH 29.4, MCHC 32.7, RDW 21.1 H, Plt Count 327, MPV 10.3, Neut % (Auto) 63.2, Lymph % (Auto) 22.6, [place] % (Auto) 9.3, Eos % (Auto) 3.7, Baso % (Auto) 0.9, Neut # (Auto) 4.2, Lymph # (Auto) 1.5, [place] # (Auto) 0.6, Eos # (Auto) 0.2, Baso # (Auto) 0.1, Sodium 136, Potassium 2.9 L* D, Chloride 90 L, Carbon Dioxide 33 H, Anion Gap 15.9 H, BUN 33 H, Creatinine 1.80 H, Estimated Creat Clear 56, Estimated GFR 40 L, Est GFR ( Amer) 48 L, Glucose 214 H D, Calcium 8.9, Phosphorus 3.0, Magnesium 1.5 L, Troponin I 0.03 07/07/24 : Magnesium 1.4 L I & O for Last 24 hours: Intake & Output 07/04/24 07/05/24 07/06/24 07/07/24 23:59 23:59 23:59 23:59 Intake Total 537 / 537 Output Total 150 / 150 Balance 387 / 387 Weight 70.307 kg 83.733 kg Constitutional Constitutional: no acute distress, thin, chronically ill appearing and cooperative *Routine HEENT Exam Head: Present normocephalic Eye: Present EOMI and PERRL ENT: Present mucous membranes moist *Routine Neck Exam Neck: Present supple; Absent lymphadenopathy *Routine Respiratory Exam Respiratory: Present CTA bilaterally; Absent rhonchi, wheezes or crackles *Routine Cardiovascular Exam Cardiovascular: Present tachycardia Comments: Regular rhythm, tachycardic ~100 *Routine Abdominal Exam Abdominal: Present soft and normoactive bowel sounds; Absent tenderness *Routine Rectal Exam Patient deferred: visual exam *Routine Exam Patient deferred: penile exam *Routine Extremities Exam Extremities: Present edema (Trace bilateral lower extremity to knees); Absent cyanosis or clubbing *Routine Skin Exam Skin: Present intact and warm; Absent rash *Routine Neurological Exam Neurological: Present alert, oriented X3 and moving all extremities; Absent altered mental status Routine Psychiatric Exam Psychiatric: Present normal affect; Absent good insight or good judgment Results Data Completed and Pending Labs on day of discharge: Labs from last 24 hours 07/07/24 07/07/24 07/07/24 Unknown 08:40 02:58 WBC 6.6 RBC 3.60 L Hgb 10.6 L Hct 32.4 L MCV 90.0 MCH 29.4 MCHC 32.7 RDW 21.1 H Plt Count 327 MPV 10.3 Neut % (Auto) 63.2 Lymph % (Auto) 22.6 [place] % (Auto) 9.3 Eos % (Auto) 3.7 Baso % (Auto) 0.9 Neut # (Auto) 4.2 Lymph # (Auto) 1.5 [place] # (Auto) 0.6 Eos # (Auto) 0.2 Baso # (Auto) 0.1 D-Dimer VBG pH VBG pCO2 VBG pO2 VBG HCO3 VBG Total CO2 VBG O2 Saturation VBG Base Excess VBG Lactic Acid Sodium 136 Potassium 2.9 L* D Chloride 90 L Carbon Dioxide 33 H Anion Gap 15.9 H BUN 33 H Creatinine 1.80 H Estimated Creat Clear 56 Estimated GFR 40 L Est GFR ( Amer) 48 L Glucose 214 H D Calcium 8.9 Phosphorus 3.0 Magnesium 1.4 L 1.5 L Total Bilirubin AST ALT Alkaline Phosphatase Troponin I 0.03 0.03 NT-Pro-B Natriuret Pep Total Protein Albumin Globulin Albumin/Globulin Ratio 07/06/24 07/06/24 07/06/24 23:56 23:40 22:56 WBC 6.4 RBC 3.44 L Hgb 10.1 L Hct 30.4 L MCV 88.4 MCH 29.4 MCHC 33.2 RDW 20.6 H Plt Count 315 MPV 10.4 Neut % (Auto) 69.0 Lymph % (Auto) 14.7 [place] % (Auto) 12.3 H Eos % (Auto) 3.0 Baso % (Auto) 0.5 Neut # (Auto) 4.4 Lymph # (Auto) 0.9 [place] # (Auto) 0.8 Eos # (Auto) 0.2 Baso # (Auto) 0.0 D-Dimer 1.75 H VBG pH 7.45 H VBG pCO2 47.7 VBG pO2 33.5 VBG HCO3 32.7 H VBG Total CO2 34.2 H VBG O2 Saturation 60.6 VBG Base Excess 8.8 H VBG Lactic Acid 1.9 Sodium 134 L Potassium 2.4 L* Chloride 90 L Carbon Dioxide 36 H Anion Gap 10.4 BUN 37 H Creatinine 1.70 H Estimated Creat Clear 49 Estimated GFR 42 L Est GFR ( Amer) 51 L Glucose 102 H Calcium 8.5 Phosphorus Magnesium Total Bilirubin 2.0 H AST 48 ALT 91 H Alkaline Phosphatase 266 H Troponin I 0.03 NT-Pro-B Natriuret Pep 3190 H Total Protein 6.3 Albumin 3.4 L Globulin 3.6 H Albumin/Globulin Ratio 0.9 L DS: Diagnosis Discharge Diagnosis (1) Hypokalemia: Status: Acute Code(s): E87.6 - Hypokalemia (2) CHF (congestive heart failure): Status: Acute Code(s): I50.9 - Heart failure, unspecified (3) Fluid overload: Status: Acute Code(s): E87.70 - Fluid overload, unspecified (4) Medically noncompliant: Status: Acute Code(s): Z91.199 - Patient's noncompliance with other medical treatment and regimen due to unspecified reason Meds Home Medications and Allergies Home Medications ?Medication ?Instructions ?Recorded ?Confirmed ?Type apixaban 5 mg tablet (Eliquis) 5 mg PO BID 30 days #60 tabs 07/14/24 Rx aspirin 81 mg tablet,delayed 81 mg PO DAILY 30 days #30 tabs 07/14/24 Rx release atorvastatin 80 mg tablet 80 mg PO HS 30 days #30 tabs 07/14/24 Rx bumetanide 2 mg tablet 2 mg PO BID 30 days #60 tabs 07/14/24 Rx clopidogrel 75 mg tablet (Plavix) 75 mg PO DAILY 30 days #30 tabs 07/14/24 Rx metoprolol succinate 50 mg 50 mg PO DAILY 30 days #30 tabs 07/14/24 Rx tablet,extended release 24 hr (Toprol XL) spironolactone 50 mg tablet 50 mg PO DAILY #30 tabs 07/14/24 Rx tamsulosin 0.4 mg capsule 0.4 mg PO HS Urine Flow 30 days 07/14/24 Rx #30 caps New Prescriptions to Start Prescriptions: Allergies Allergy/AdvReac Type Severity Reaction Status Date / Time diclofenac (DICLOFENAC) Allergy Unknown Unknown Verified 07/06/24 22:56 allergy reaction Penicillins (PENICILLINS) Allergy Unknown Hives Verified 07/06/24 22:56 propoxyphene (PROPOXYPHENE) Allergy Unknown Unknown Verified 07/06/24 22:56 allergy reaction tramadol (TRAMADOL) Allergy Unknown Vomiting Verified 07/06/24 22:56 Discharge Plan Disposition Patient Disposition: Left Against Medical Advice Condition: Fair Patient Discharge Instructions Print Language: [place] Providers Admit Provider: John Parikh Attending Provider: John Parikh
--- NOTE | 2024-07-07 14:16 | PC.NURSE ---
Patient stated that he was not staying any longer due to an appointment to go look at a house. This RN and MD spoke with patient about the reason to why the patient was admitted and the need to recheck his potassium. Patient stated that he did not want another lab draw but he finally agreed. Patient jerked away from labeler and labs were pulled from his IV. OK'd by MD. Patient stated he would not stay for results and Left the hospital. He was educated on risks of leaving against medical advice. Patient voiced he understood.
[2024-07-07 14:41] LABS: Chloride 90 mmol/L (98-107); Potassium 3.5 mmoL/L (3.5-5.1); Sodium 133 mmol/L (136-145)
[2024-07-07 14:44] LABS: Anion Gap 12.5 mEq/L (5-15); Blood Urea Nitrogen 35 mg/dl (9-20); Calcium 8.8 mg/dl (8.4-10.2); Carbon Dioxide 34 mmol/L (22.0-30.0); Creatinine Clearance Estimated 63 mL/min (50-200); Estimated Glomerular Filt Rate 45 ml/min (>60); GFR (African American) 55 ML/MIN (>60); Glucose 192 mg/dl (74-100)
== END 2024-07-07 14:04 | disposition left against medical advice (07) ==
LOC: ER 07-07 00:27 → 2ND 07-07 00:38
PROVIDERS: Emergency Medicine; Nurse Practitioner Family; Admitting Provider Student in an Organized Health Care Education/Training Program; Emergency Provider Student in an Organized Health Care Education/Training Program; Visit Provider Student in an Organized Health Care Education/Training Program
DX: I12.9 Hypertensive chronic kidney disease with stage 1 through stage 4 chronic kidney disease, or unspecified chronic kidney disease (principal); E87.6 Hypokalemia; N18.31 Chronic kidney disease, stage 3a; I50.23 Acute on chronic systolic (congestive) heart failure; E87.70 Fluid overload, unspecified; E78.5 Hyperlipidemia, unspecified; I25.2 Old myocardial infarction; Z79.01 Long term (current) use of anticoagulants; Z95.5 Presence of coronary angioplasty implant and graft; Z79.899 Other long term (current) drug therapy; Z91.199 Patient's noncompliance with other medical treatment and regimen due to unspecified reason; Z88.0 Allergy status to penicillin; Z88.8 Allergy status to other drugs, medicaments and biological substances; E53.9 Vitamin B deficiency, unspecified; N40.0 Benign prostatic hyperplasia without lower urinary tract symptoms; I51.3 Intracardiac thrombosis, not elsewhere classified; D63.1 Anemia in chronic kidney disease
CPT/HCPCS: 36415; 71045; 80048; 80053; 82803; 83735; 83880; 84100; 84484; 85025; 85378; 93005; 99285; G0378; J1939; J3475; J3480; J7120

== ENCOUNTER 2024-07-13 01:28 | Observation (INO) | payer MEDICARE, MEDICAID, SELFPAY ==
[2024-07-13] VITALS (13 sets, daily range): BP systolic 106–131; BP diastolic 61–93; PULSE 80–105; RESP 16–19; TEMP 36.4–36.8; O2SAT 95–99; BMI 29.7; BMI 27.7; BMI 12.6
--- NOTE | 2024-07-13 01:23 | ECG_ITS ---
APPROVED REPORT Exam: Resting ECG HR:106 bpm ECG Measurements Heart Rate 106 AXES VT 144 P 51 QRSd 88 QRS -26 QT 364 T 103 QTc 426 Conclusion SINUS TACHYCARDIA BORDERLINE LEFT AXIS DEVIATION [QRS AXIS < -20] MINIMAL ST DEPRESSION [0.025+ mV ST DEPRESSION] ABNORMAL QRS-T ANGLE [QRS-T AXIS DIFFERENCE > 60] No STEMI Electronically signed by : LENNY ABDALLA, 07/14/2024 03:23:46
--- NOTE | 2024-07-13 01:34 | XR_ITS ---
PROCEDURE INFORMATION: Exam: XR Chest Exam date and time: 07/13/2024 2:31 AM Age: 54 years old Clinical indication: Shortness of breath; Additional info: SOA, cirrhosis TECHNIQUE: Imaging protocol: Radiologic exam of the chest. Views: 1 view. COMPARISON: CR XR CHEST PORTABLE 07/06/2024 11:41 PM FINDINGS: Lungs: Unremarkable. No consolidation. Pleural spaces: Unremarkable. No pleural effusion. No pneumothorax. Heart/Mediastinum: Unremarkable. No cardiomegaly. Bones/joints: Unremarkable. IMPRESSION: No acute findings.
[2024-07-13 01:43] LABS: Basophils # 0.1 K/mm3 (0-0.2); Basophils % 1.2 % (0.1-2.0); Eosinophils # 0.3 K/mm3 (0.0-0.4); Eosinophils % 4.5 % (0.1-12.0); Hematocrit 29.8 % (42.0-52.0); Hemoglobin 9.6 g/dL (14.1-18.0); Lymphocytes # 1.4 K/mm3 (0.7-4.5); Lymphocytes % 17.8 % (10-50); Mean Corpuscular HGB Conc 32.2 g/dL (31.8-35.4); Mean Corpuscular Hemoglobin 29.4 pg (27.0-31.2); Mean Corpuscular Volume 91.4 fl (80-94); Mean Platelet Volume 9.5 fl (7.4-10.4); Monocytes # 1.1 K/mm3 (0.1-1.0); Neutrophils # 4.6 K/mm3 (1.8-7.8); Neutrophils % 60.8 % (37.0-80.0); Platelet Count 476 K/mm3 (142-424); Red Blood Count 3.26 M/mm3 (4.60-6.20); Red Cell Distribution Width 20.8 % (11.5-17.5); White Blood Count 7.6 K/mm3 (4.8-10.8)
[2024-07-13 01:49] LABS: Alanine Aminotransferase 59 U/L (12-78); Albumin Level 3.3 g/dl (3.5-5.0); Albumin/Globulin Ratio 1.1 (1.1-1.8); Alkaline Phosphatase 351 U/L (38-126); Aspartate Amino Transferase 48 U/L (17-59); Bilirubin,Total 1.5 mg/dl (0.2-1.3); Blood Urea Nitrogen 23 mg/dl (9-20); Calcium 8.7 mg/dl (8.4-10.2); Carbon Dioxide 31 mmol/L (22.0-30.0); Chloride 96 mmol/L (98-107); Creatinine Clearance Estimated 74 mL/min (50-200); Estimated Glomerular Filt Rate 53 ml/min (>60); GFR (African American) 64 ML/MIN (>60); Globulin 3.1 g/dL (1.3-3.2); Glucose 131 mg/dl (74-100); Magnesium 1.9 mg/dl (1.6-2.3); Sodium 137 mmol/L (136-145); Total Protein,Serum 6.4 g/dl (6.3-8.2)
[2024-07-13 02:01] LABS: NT Pro Brain Natriuretic Pep. 7190 pg/mL (0-125); Troponin I 0.03 ng/ml (0.00-0.034)
--- NOTE | 2024-07-13 02:04 | PC.NURSE ---
ed attending at the bedside
--- NOTE | 2024-07-13 02:46 | ED_ITS ---
Discharge Plan Disposition Patient Disposition: Admitted Condition: Good Clinical Impressions Clinical Impression: Volume overload, Heart failure Discharge ED Provider: Murray Brown Adult HPI General Chief complaint: Shortness of Breath/Dyspnea Stated complaint: shortness of air Time Seen by Provider: 07/13/24 01:34 Mode of Arrival: EMS Source of Information: Patient and EMS Description of Symptoms (Recalled from ER Triage Doc. by RN): pt presents c/o SOA that is chronic in nature with worsening x1 day due to fluid overload. Pt reports to taking prescribed home dieurteics with no relief. History of Present Illness HPI narrative: 54-year-old male with history of severe heart failure, CKD, frequent seen in our emergency department, presents with worsening bilateral lower extremity edema, abdominal swelling, shortness of breath. He denies any fever or infectious symptoms at home. He reports he has been taking his medications but his fluid just keeps getting worse. Patient denies chest pain. Related Data Home Medications ?Medication ?Instructions ?Recorded ?Confirmed atorvastatin 80 mg tablet 80 mg PO HS Cholesterol 07/07/24 07/13/24 bumetanide 2 mg tablet 2 mg PO BID Diuretic 07/13/24 07/13/24 tamsulosin 0.4 mg capsule 0.4 mg PO HS Urine Flow 07/13/24 07/13/24 Previous Rx's ?Medication ?Instructions ?Recorded apixaban 5 mg tablet (Eliquis) 5 mg PO BID 30 days #60 tabs 06/15/24 aspirin 81 mg tablet,delayed 81 mg PO DAILY 30 days #30 tabs 06/15/24 release clopidogrel 75 mg tablet (Plavix) 75 mg PO DAILY 30 days #30 tabs 06/15/24 metoprolol succinate 50 mg 50 mg PO DAILY 30 days #30 tabs 06/15/24 tablet,extended release 24 hr (Toprol XL) potassium chloride 20 mEq 20 meq PO BID 30 days #60 tabs 07/07/24 tablet,extended release Allergies Allergy/AdvReac Type Severity Reaction Status Date / Time diclofenac (DICLOFENAC) Allergy Unknown Unknown Verified 07/06/24 22:56 allergy reaction Penicillins (PENICILLINS) Allergy Unknown Hives Verified 07/06/24 22:56 propoxyphene (PROPOXYPHENE) Allergy Unknown Unknown Verified 07/06/24 22:56 allergy reaction tramadol (TRAMADOL) Allergy Unknown Vomiting Verified 07/06/24 22:56 [facility] Disclaimer: The information contained in this section may have been updated after the patient was seen, as this information can be updated by other users. Medical History Medically noncompliant Bilateral edema of lower extremity CKD stage 3a, GFR 45-59 ml/min CAD (coronary artery disease) Acute on chronic HFrEF (heart failure with reduced ejection fraction) Pneumonia Chest pain Pulmonary infiltrate Hyponatremia Bed bug bite CHF (congestive heart failure) Right atrial thrombus Acute decompensated heart failure Fatigue Nodule of left lung Severe left ventricular systolic dysfunction (LVSD) Transaminitis RENAY (acute kidney injury) Anasarca LV (left ventricular) mural thrombus Acute hypoxemic respiratory failure Cardiogenic shock Non-STEMI (non-ST elevated myocardial infarction) Acute HFrEF (heart failure with reduced ejection fraction) Pneumonia Pleural effusion, bilateral Vitamin B12 deficiency Allergic rhinitis BPH (benign prostatic hyperplasia) Hyperlipidemia Insomnia Partial tear of right Achilles tendon Surgical History History of back surgery Family History Other No significant family history Social History (Updated 07/13/24 @ 03:53 by Susy Christy RN) Smoking Status: Former smoker tobacco type: smokeless tobacco alcohol intake: never substance use type: former substance user and heroin current occupational status: unemployed Travel in the last 8 weeks: None Contact w/someone who lives/traveled outside [place] past 30 days?: No Exposure to someone with infectious disease in past 14 days?: No Do you have a fever (greater than 100.4 F or 38 C)?: No Have you tested positive for COVID-19: No Exposed to someone with COVID-19 in past 14 days?: No Do you have a sore throat?: No Do you have a cough?: Yes Other Medical History Have you received the Flu Vaccine for this season: No Have you received the Pneumonia Vaccine: No ROS Obtained: Yes All systems reviewed & no additional complaints except as documented Physical Exam General General appearance: alert and in no apparent distress Head Head exam: atraumatic and normocephalic Eye Eye exam: Present normal appearance, PERRL and EOMI ENT ENT exam: Present normal oropharynx and normal external ear exam Neck Neck exam: Present normal inspection and full ROM Chest Chest inspection: Present normal inspection and symmetric chest wall rise; Absent tenderness Respiratory Respiratory exam: Present normal lung sounds bilaterally; Absent respiratory distress Cardiovascular Cardiovascular exam: Present regular rate and normal rhythm Abdominal Exam Abdominal exam: Present soft and distention (Fluid wave noted, pitting edema of the skin); Absent tenderness or guarding Extremities Exam Extremities exam: Present normal inspection and edema (Bilateral pitting edema to the hip); Absent joint swelling Back Exam Back exam: Present normal inspection; Absent tenderness Neurological Exam Neurological exam: Present alert and oriented X3; Absent motor sensory deficit Psychiatric Psychiatric exam: Present normal affect and normal mood Skin Skin exam: Present warm, dry and normal color Lymphatic Lymphatic Findings: no adenopathy Medical Decision Making Medical Records Medical records reviewed: Yes I reviewed the patient's medical records. Screening: Per USPSTF and CDC recommendations, given the prevalence of disease in our region, it is our hospital?s policy to screen for HIV and viral Hepatitis for all patients aged 18 and over and those with ongoing risk factors. Matty Inquiry Pt receiving controlled substance: No Matty was queried for this patient: No Vital Signs: 07/13/24 01:30 07/13/24 01:31 07/13/24 02:00 Temperature 98.2 F Temperature Source Oral Pulse Rate 103 H 105 H Pulse Rate [Radial] 105 H Respiratory Rate 19 18 18 Blood Pressure 117/79 124/85 Blood Pressure [Right Arm] 120/81 Blood Pressure Mean [Right Arm] 94 Blood Pressure Source [Right Arm] Blood Pressure Position Blood Pressure Position [Right Arm] Sitting 02 Sat by Pulse Oximetry 99 99 99 Oxygen Delivery Method Room Air 07/13/24 02:30 07/13/24 02:57 07/13/24 03:15 Temperature 97.8 F Temperature Source Oral Pulse Rate Pulse Rate [Radial] 105 H 98 H Respiratory Rate 19 16 16 Blood Pressure 113/79 Blood Pressure [Right Arm] 131/93 H Blood Pressure Mean [Right Arm] 105 Blood Pressure Source [Right Arm] Automatic Cuff Blood Pressure Position Blood Pressure Position [Right Arm] 02 Sat by Pulse Oximetry 99 98 Oxygen Delivery Method Room Air Room Air 07/13/24 03:21 Temperature 98.2 F Temperature Source Oral Pulse Rate 103 H Pulse Rate [Radial] Respiratory Rate 16 Blood Pressure 113/79 Blood Pressure [Right Arm] Blood Pressure Mean [Right Arm] Blood Pressure Source [Right Arm] Blood Pressure Position Sitting Blood Pressure Position [Right Arm] 02 Sat by Pulse Oximetry Oxygen Delivery Method Room Air Lab Data Lab results reviewed: Yes I reviewed the patient's lab results. Lab Results 07/13/24 01:28: WBC 7.6, RBC 3.26 L, Hgb 9.6 L, Hct 29.8 L, MCV 91.4, MCH 29.4, MCHC 32.2, RDW 20.8 H, Plt Count 476 H, MPV 9.5, Neut % (Auto) 60.8, Lymph % (Auto) 17.8, [place] % (Auto) 15.0 H, Eos % (Auto) 4.5, Baso % (Auto) 1.2, Neut # (Auto) 4.6, Lymph # (Auto) 1.4, [place] # (Auto) 1.1 H, Eos # (Auto) 0.3, Baso # (Auto) 0.1, Sodium 137, Potassium 3.0 L, Chloride 96 L, Carbon Dioxide 31 H, Anion Gap 13.0, BUN 23 H, Creatinine 1.40 H, Estimated Creat Clear 74, Estimated GFR 53 L, Est GFR ( Amer) 64, Glucose 131 H, Calcium 8.7, Magnesium 1.9, Total Bilirubin 1.5 H, AST 48, ALT 59, Alkaline Phosphatase 351 H, Troponin I 0.03, NT-Pro-B Natriuret Pep 7190 H, Total Protein 6.4, Albumin 3.3 L, Globulin 3.1, Albumin/Globulin Ratio 1.1 07/13/24 04:56 07/13/24 04:56 Orders (Tests/Meds): ED MEDICATIONS Generic Name Dose Route Start Last Admin Trade Name Freq PRN Reason Stop Dose Admin Acetaminophen 650 mg 07/13/24 03:15 Acetaminophen 325mg Tab PO 08/12/24 03:14 Q4HP PRN Fever or Mild Pain (1-3) Bumetanide 10 mg/ Sodium 100 mls @ 5 mls/hr 07/13/24 02:50 07/13/24 02:59 Chloride IV 08/12/24 02:49 5 mls/hr .Q20H NOVA Administration Potassium Chloride 40 meq 07/13/24 02:50 07/13/24 02:59 Potassium Chloride 20meq Tab PO 07/13/24 02:51 40 meq ONCE ONE Administration ORDERS Category Date Time Status Chest XR -- portable [XR chest portable] Stat Exams 07/13/24 01:34 Completed BNP [NT Pro Brain Natriuretic Pep.] Stat Lab 07/13/24 01:28 Completed CBC w/Auto Diff [Complete Blood Count Auto Diff] Stat Lab 07/13/24 01:28 Completed CMP [Comprehensive Metabolic Panel] Stat Lab 07/13/24 01:28 Completed Complete Blood Count Auto Diff AMLAB Lab 07/13/24 04:56 Completed Comprehensive Metabolic Panel AMLAB Lab 07/13/24 04:56 Completed Magnesium AMLAB Lab 07/13/24 04:56 Completed Magnesium Stat Lab 07/13/24 01:28 Completed Trop I [Troponin I] Stat Lab 07/13/24 01:28 Completed Troponin I Q3H Lab 07/13/24 04:45 Completed Troponin I Q3H Lab 07/13/24 07:45 Ordered ECG Data Tracing #1: I reviewed this ECG and interpreted as documented below: Sinus tachycardia with rate of 106, no significant ST elevation, no arrhythmia ECG initial impression date: 07/13/24 ECG initial impression time: 01:23 HEART Score History (anamnesis): Slightly suspicious ECG: Non-specific disturbance Age: 45-65 years Risk factors: Atherosclerosis history Troponin: </= normal limit HEART Score: 4 Medical Decision Narrative: 54-year-old male with history of severe heart failure, CKD presents for worsening bilateral lower extremity edema, abdominal distention, shortness of breath. History was obtained via interactive discussion with patient, EMS. On arrival, patient is [afebrile, hemodynamically stable, satting appropriately, alert, oriented x4, GCS 15], moving all extremities spontaneously. Full physical exam performed and significant for tense abdomen with pitting edema, pitting edema to the bilateral legs, clear lungs on exam Differential includes but is not limited to heart failure, volume overload, renal failure, ACS medication noncompliance. Patient was given Bumex drip for symptomatic management and correction of underlying abnormalities. Workup initiated including CBC CMP EKG chest x-ray troponin BNP mag. On re-evaluation, patient [remains afebrile, HD stable.] Laboratory workup independently interpreted by me and significant for mild hypokalemia repleted orally, negative initial troponin, BNP elevated at 7000,. Imaging independently interpreted by me and significant for no significant edema or effusion. See radiology read for full review of final results. Given patient history, exam and workup, patient's presentation most likely represents acute on chronic heart failure and volume overload. Indirect discussion was had with hospitalist on-call for admission for diuresis.. Procedures Risk/Benefits of Procedure(s) Were Explained: Yes Critical Care Critical Care Time Critical Care Time: No
[2024-07-13] MEDS: BUMETANIDE 10 MG in 0.9 % SODIUM CHLORIDE 60 ML 5 MG IV (02:59)
[2024-07-13] MEDS: POTASSIUM CHLORIDE 20MEQ TAB 40 MEQ PO ×3 (02:59→16:38)
--- NOTE | 2024-07-13 03:11 | PC.NURSE ---
Attempt to call report to floor, this RN to call back
--- NOTE | 2024-07-13 03:19 | P.HP_ITS ---
History of Present Illness *Admission Date: 07/13/24 *Reason for visit:: Shortness of breath *History of present illness: This is a 54-year-old male with a past medical history of systolic heart failure with an EF of 15 to 20%, CKD stage III, hyperlipidemia, hypertension, BPH who presents to the emergency department today with complaints of shortness of breath. He reports being compliant with his home medications since discharge 1 week ago, although he has a history of medical noncompliance. States that he developed significant cough and shortness of breath this evening. Also noted increase in swelling in his lower extremities. Also states that his abdomen feels tight. He denies fever. Emergency department workup notable for acute on chronic heart failure exacerbation. Laboratory evaluation notable for potassium of 3.0, BNP of 7000 with prior hospitalization BNP of 3000 gross, anasarca noted up to umbilicus. Oxygenating well on room air. Chest x-ray with mild edema noted. Given patient's complaints of shortness of breath and elevated BNP, he will be admitted to the hospital service for IV diuresis [facility] Disclaimer: The information contained in this section may have been updated after the patient was seen, as this information can be updated by other users. Medical History Medically noncompliant Bilateral edema of lower extremity CKD stage 3a, GFR 45-59 ml/min CAD (coronary artery disease) Acute on chronic HFrEF (heart failure with reduced ejection fraction) Pneumonia Chest pain Pulmonary infiltrate Hyponatremia Bed bug bite CHF (congestive heart failure) Right atrial thrombus Acute decompensated heart failure Fatigue Nodule of left lung Severe left ventricular systolic dysfunction (LVSD) Transaminitis RENAY (acute kidney injury) Anasarca LV (left ventricular) mural thrombus Acute hypoxemic respiratory failure Cardiogenic shock Non-STEMI (non-ST elevated myocardial infarction) Acute HFrEF (heart failure with reduced ejection fraction) Pneumonia Pleural effusion, bilateral Vitamin B12 deficiency Allergic rhinitis BPH (benign prostatic hyperplasia) Hyperlipidemia Insomnia Partial tear of right Achilles tendon Surgical History History of back surgery Family History Other No significant family history Social History (Updated 07/13/24 @ 03:53 by Susy Christy RN) Smoking Status: Former smoker tobacco type: smokeless tobacco alcohol intake: never substance use type: former substance user and heroin current occupational status: unemployed Travel in the last 8 weeks: None Other Medical History Have you received the Flu Vaccine for this season: No Have you received the Pneumonia Vaccine: No Review of Systems Review of Systems Review of systems:: pertinent systems reviewed and negative unless documented below Review of systems (narrative): Negative except for HPI Meds Home Medications and Allergies Home Medications ?Medication ?Instructions ?Recorded ?Confirmed ?Type apixaban 5 mg tablet (Eliquis) 5 mg PO BID 30 days #60 tabs 06/15/24 07/13/24 Rx aspirin 81 mg tablet,delayed 81 mg PO DAILY 30 days #30 tabs 06/15/24 07/13/24 Rx release clopidogrel 75 mg tablet (Plavix) 75 mg PO DAILY 30 days #30 tabs 06/15/24 07/13/24 Rx metoprolol succinate 50 mg 50 mg PO DAILY 30 days #30 tabs 06/15/24 07/13/24 Rx tablet,extended release 24 hr (Toprol XL) atorvastatin 80 mg tablet 80 mg PO HS 07/07/24 07/13/24 History potassium chloride 20 mEq 20 meq PO BID 30 days #60 tabs 07/07/24 07/13/24 Rx tablet,extended release bumetanide 2 mg tablet 2 mg PO BID 07/13/24 07/13/24 History tamsulosin 0.4 mg capsule 0.4 mg PO HS Urine Flow 07/13/24 07/13/24 History New Prescriptions to Start Prescriptions: Allergies Allergy/AdvReac Type Severity Reaction Status Date / Time diclofenac (DICLOFENAC) Allergy Unknown Unknown Verified 07/06/24 22:56 allergy reaction Penicillins (PENICILLINS) Allergy Unknown Hives Verified 07/06/24 22:56 propoxyphene (PROPOXYPHENE) Allergy Unknown Unknown Verified 07/06/24 22:56 allergy reaction tramadol (TRAMADOL) Allergy Unknown Vomiting Verified 07/06/24 22:56 Exam Data for Last 24 hours Vital signs and Labs for Last 24 Hours: Temp Pulse Resp BP Pulse Ox O2 Del Method 98.2 F 105 H 19 113/79 99 Room Air 07/13/24 01:31 07/13/24 02:00 07/13/24 02:30 07/13/24 02:30 07/13/24 02:00 07/13/24 01:31 Laboratory Results - last 24 hr 07/13/24 01:28: WBC 7.6, RBC 3.26 L, Hgb 9.6 L, Hct 29.8 L, MCV 91.4, MCH 29.4, MCHC 32.2, RDW 20.8 H, Plt Count 476 H, MPV 9.5, Neut % (Auto) 60.8, Lymph % (Auto) 17.8, [place] % (Auto) 15.0 H, Eos % (Auto) 4.5, Baso % (Auto) 1.2, Neut # (Auto) 4.6, Lymph # (Auto) 1.4, [place] # (Auto) 1.1 H, Eos # (Auto) 0.3, Baso # (Auto) 0.1, Sodium 137, Potassium 3.0 L, Chloride 96 L, Carbon Dioxide 31 H, Anion Gap 13.0, BUN 23 H, Creatinine 1.40 H, Estimated Creat Clear 74, Estimated GFR 53 L, Est GFR ( Amer) 64, Glucose 131 H, Calcium 8.7, Magnesium 1.9, Total Bilirubin 1.5 H, AST 48, ALT 59, Alkaline Phosphatase 351 H, Troponin I 0.03, NT-Pro-B Natriuret Pep 7190 H, Total Protein 6.4, Albumin 3.3 L, Globulin 3.1, Albumin/Globulin Ratio 1.1 I & O for Last 24 hours: Intake & Output 07/10/24 07/11/24 07/12/24 07/13/24 23:59 23:59 23:59 23:59 Weight 86.183 kg Constitutional Constitutional: no acute distress *Routine HEENT Exam Head: Present normocephalic Eye: Present EOMI and PERRL ENT: Present mucous membranes moist *Routine Neck Exam Neck: Present supple; Absent lymphadenopathy *Routine Respiratory Exam Respiratory: Present CTA bilaterally and normal respiratory effort *Routine Cardiovascular Exam Cardiovascular: Present RRR, Normal S1 and Normal S2 Comments: +2 pitting edema bilateral lower extremity *Routine Abdominal Exam Abdominal: Present soft and normoactive bowel sounds; Absent tenderness *Routine Rectal Exam Rectal:: deferred *Routine Genitalia Exam Genitalia:: deferred *Routine Extremities Exam Extremities: Present edema (+2 pitting edema bilateral lower extremity); Absent cyanosis or clubbing *Routine Skin Exam Skin: Present warm; Absent rash *Routine Neurological Exam Neurological: Present alert and oriented X3 Assessment and Plan *Assessment and plan (1) Acute on chronic HFrEF (heart failure with reduced ejection fraction): Status: Acute Category: Medical Code(s): I50.23 - Acute on chronic systolic (congestive) heart failure (2) Hypokalemia: Status: Acute Category: Medical Code(s): E87.6 - Hypokalemia (3) Medically noncompliant: Status: Acute Category: Medical Code(s): Z91.199 - Patient's noncompliance with other medical treatment and regimen due to unspecified reason (4) CAD (coronary artery disease): Status: Acute Qualifiers: Associated angina: with unspecified form of angina Coronary Disease- Associated Artery/Lesion type: [place] artery [place] vs. transplanted heart: [place] heart Qualified Code(s): I25.119 - Atherosclerotic heart disease of [place] coronary artery with unspecified angina pectoris Category: Medical Code(s): I25.10 - Atherosclerotic heart disease of [place] coronary artery without angina pectoris (5) CKD stage 3a, GFR 45-59 ml/min: Status: Acute Category: Medical Code(s): N18.31 - Chronic kidney disease, stage 3a (6) Hyperlipidemia: Status: Chronic Qualifiers: Hyperlipidemia type: unspecified Qualified Code(s): E78.5 - Hyperlipidemia, unspecified Category: Medical Code(s): E78.5 - Hyperlipidemia, unspecified (7) BPH (benign prostatic hyperplasia): Status: Chronic Qualifiers: Lower urinary tract symptom detail: urinary hesitancy Lower urinary tract symptom presence: symptoms present Qualified Code(s): N40.1 - Benign prostatic hyperplasia with lower urinary tract symptoms; R39.11 - Hesitancy of micturition Category: Medical Code(s): N40.0 - Benign prostatic hyperplasia without lower urinary tract symptoms Plan #Acute on chronic systolic heart failure Elevated BNP of 7000. Per chart review patient's weight is up approximately 20 pounds. Placed on Bumex drip by ED provider, will continue on admission. Patient has a history of being on Bumex drip while hospitalized. Last EF 15 to 20% in March 2024 Oxygenating well on room air at this time #Hypokalemia Replace per protocol Monitor electrolytes while on Bumex drip #CKD stage IIIa Creatinine 1.4 today with a GFR of 53 Renal function near baseline. Monitor renal function while on Bumex Daily BMP Avoid other nephrotoxic medication #Chronic anemia H&H stable #CAD Denies chest pain at this time. Continue home Plavix, aspirin, Eliquis, atorvastatin beta-lexii #Hypertension Continue home metoprolol #BPH Continue tamsulosin
--- NOTE | 2024-07-13 03:20 | PC.NURSE ---
Report given to Susy RN on the floor
--- NOTE | 2024-07-13 03:43 | PC.NURSE ---
Patient arrived to floor via wheelchair from ED at 03:34.
[2024-07-13 05:45] LABS: Basophils # 0.1 K/mm3 (0-0.2); Basophils % 1.3 % (0.1-2.0); Eosinophils # 0.4 K/mm3 (0.0-0.4); Eosinophils % 5.1 % (0.1-12.0); Hematocrit 30.3 % (42.0-52.0); Hemoglobin 9.7 g/dL (14.1-18.0); Lymphocytes # 1.4 K/mm3 (0.7-4.5); Lymphocytes % 18.4 % (10-50); Mean Corpuscular Hemoglobin 29.1 pg (27.0-31.2); Mean Platelet Volume 9.3 fl (7.4-10.4); Monocytes % 13.1 % (1.7-9.3); Neutrophils # 4.8 K/mm3 (1.8-7.8); Neutrophils % 61.7 % (37.0-80.0); Platelet Count 468 K/mm3 (142-424); Red Blood Count 3.33 M/mm3 (4.60-6.20); Red Cell Distribution Width 20.9 % (11.5-17.5); White Blood Count 7.8 K/mm3 (4.8-10.8)
[2024-07-13 05:59] LABS: Albumin Level 3.4 g/dl (3.5-5.0); Chloride 97 mmol/L (98-107); Potassium 3.2 mmoL/L (3.5-5.1); Sodium 137 mmol/L (136-145)
[2024-07-13 06:02] LABS: Alanine Aminotransferase 61 U/L (12-78); Albumin/Globulin Ratio 1.1 (1.1-1.8); Alkaline Phosphatase 355 U/L (38-126); Anion Gap 9.2 mEq/L (5-15); Aspartate Amino Transferase 51 U/L (17-59); Bilirubin,Total 1.5 mg/dl (0.2-1.3); Blood Urea Nitrogen 24 mg/dl (9-20); Calcium 9.2 mg/dl (8.4-10.2); Carbon Dioxide 34 mmol/L (22.0-30.0); Creatinine Clearance Estimated 60 mL/min (50-200); Estimated Glomerular Filt Rate 45 ml/min (>60); GFR (African American) 55 ML/MIN (>60); Globulin 3.1 g/dL (1.3-3.2); Glucose 109 mg/dl (74-100); Total Protein,Serum 6.5 g/dl (6.3-8.2)
[2024-07-13 06:03] LABS: Magnesium 1.7 mg/dl (1.6-2.3)
[2024-07-13 06:07] LABS: Troponin I 0.03 ng/ml (0.00-0.034)
--- NOTE | 2024-07-13 07:51 | HMH.PHAINT1 ---
Pharmacy Intervention Comments: HOME MEDICATION LIST VERIFIED USING LIST FROM [facility] DISCHARGE FROM THIS FACILITY
[2024-07-13 08:27] LABS: Troponin I 0.03 ng/ml (0.00-0.034)
[2024-07-13] MEDS: APIXABAN 5MG TABLET 5 MG PO ×2 (08:43→20:32)
[2024-07-13] MEDS: CLOPIDOGREL 75MG TAB 75 MG PO (08:43)
[2024-07-13] MEDS: ASPIRIN EC 81MG TABLET 81 MG PO (08:43)
[2024-07-13] MEDS: METOPROLOL SUCCINATE XL 50MG TABLET 50 MG PO (08:43)
[2024-07-13] MEDS: BUMETANIDE 10 MG in 0.9 % SODIUM CHLORIDE 60 ML 20 MG IV ×4 (08:44→22:03)
--- NOTE | 2024-07-13 11:03 | P.CONCA_ITS ---
History of Present Illness History of Present Illness Consult date: 07/13/24 Requesting physician: Jace Haney Consult reason: shortness of breath Chief complaint: SOB and edema History of present illness: Is a 54-year-old gentleman with known HFrEF and an ejection fraction of 15 to 20%, chronic kidney disease, coronary artery disease, hypertension and hyperlipidemia. The patient has been admitted to the hospital multiple times with acute exacerbations of his HFrEF. He presents to the hospital this time with complaints of shortness of breath and bilateral lower extremity edema. The patient was just discharged from the hospital last week. He states that the day following his discharge he started to have worsening lower extremity edema and abdominal edema. He states that it just continued to progress and now he is severely short of breath with anasarca and bilateral lower extremity edema. The patient states that his shortness of breath has been severe. He denies any chest pain or pressure. He states his abdomen feels significantly tight. He denies any fever, chills, nausea, vomiting or diarrhea. Upon arrival to the emergency department the patient is found to have a BNP of 7000 with a negative troponin. His chest x-ray is normal. He does report that he has been taking all of his medications as prescribed. [facility] Disclaimer: The information contained in this section may have been updated after the patient was seen, as this information can be updated by other users. Medical History Medically noncompliant Bilateral edema of lower extremity CKD stage 3a, GFR 45-59 ml/min CAD (coronary artery disease) Acute on chronic HFrEF (heart failure with reduced ejection fraction) Pneumonia Chest pain Pulmonary infiltrate Hyponatremia Bed bug bite CHF (congestive heart failure) Right atrial thrombus Acute decompensated heart failure Fatigue Nodule of left lung Severe left ventricular systolic dysfunction (LVSD) Transaminitis RENAY (acute kidney injury) Anasarca LV (left ventricular) mural thrombus Acute hypoxemic respiratory failure Cardiogenic shock Non-STEMI (non-ST elevated myocardial infarction) Acute HFrEF (heart failure with reduced ejection fraction) Pneumonia Pleural effusion, bilateral Vitamin B12 deficiency Allergic rhinitis BPH (benign prostatic hyperplasia) Hyperlipidemia Insomnia Partial tear of right Achilles tendon Surgical History History of back surgery Family History Other No significant family history Social History (Updated 07/13/24 @ 03:53 by Susy Christy RN) Smoking Status: Former smoker tobacco type: smokeless tobacco alcohol intake: never substance use type: former substance user and heroin current occupational status: unemployed Travel in the last 8 weeks: None Contact w/someone who lives/traveled outside [place] past 30 days?: No Exposure to someone with infectious disease in past 14 days?: No Do you have a fever (greater than 100.4 F or 38 C)?: No Have you tested positive for COVID-19: No Exposed to someone with COVID-19 in past 14 days?: No Do you have a sore throat?: No Do you have a cough?: Yes Review of Systems Review of Systems Review of systems:: pertinent systems reviewed and negative unless documented below Constitutional Constitutional: Reports system reviewed and no additional complaints, except as documented, Reports fatigue and Reports lethargy Eyes Eyes: Reports system reviewed and no additional complaints, except as documented ENT Ears, Nose, Mouth, and Throat: Reports system reviewed and no additional complaints, except as documented *Cardiovascular Cardiovascular: Reports system reviewed and no additional complaints, except as documented, Denies chest pain, Reports dyspnea, Reports dyspnea on exertion, Reports edema, Reports leg edema and Reports pedal edema *Respiratory Respiratory: Reports system reviewed and no additional complaints, except as documented, Reports dyspnea and Reports dyspnea on exertion *Gastrointestinal Gastrointestinal: Reports system reviewed and no additional complaints, except as documented and Reports bloating *Genitourinary Genitourinary: Reports system reviewed and no additional complaints, except as documented *Musculoskeletal Musculoskeletal: Reports system reviewed and no additional complaints, except as documented Integumentary/Breasts Skin/Breast: Reports system reviewed and no additional complaints, except as documented *Neurologic Neurologic: Reports system reviewed and no additional complaints, except as documented Psychiatric Psychiatric: Reports system reviewed and no additional complaints, except as documented Endocrine Endocrine: Reports system reviewed and no additional complaints, except as documented and Reports fatigue Hematologic/Lymphatic Hematologic/Lymphatic: Reports system reviewed and no additional complaints, except as documented Allergic/Immunologic Allergic/Immunologic: Reports system reviewed and no additional complaints, except as documented Exam Data for Last 24 hours Vital signs and Labs for Last 24 Hours: Temp Pulse Resp BP Pulse Ox O2 Del Method 97.9 F 104 H 18 125/76 99 Room Air 07/13/24 08:00 07/13/24 08:00 07/13/24 08:00 07/13/24 08:00 07/13/24 08:00 07/13/24 09:00 Laboratory Results - last 24 hr 07/13/24 01:28: WBC 7.6, RBC 3.26 L, Hgb 9.6 L, Hct 29.8 L, MCV 91.4, MCH 29.4, MCHC 32.2, RDW 20.8 H, Plt Count 476 H, MPV 9.5, Neut % (Auto) 60.8, Lymph % (Auto) 17.8, [place] % (Auto) 15.0 H, Eos % (Auto) 4.5, Baso % (Auto) 1.2, Neut # (Auto) 4.6, Lymph # (Auto) 1.4, [place] # (Auto) 1.1 H, Eos # (Auto) 0.3, Baso # (Auto) 0.1, Sodium 137, Potassium 3.0 L, Chloride 96 L, Carbon Dioxide 31 H, Anion Gap 13.0, BUN 23 H, Creatinine 1.40 H, Estimated Creat Clear 74, Estimated GFR 53 L, Est GFR ( Amer) 64, Glucose 131 H, Calcium 8.7, Magnesium 1.9, Total Bilirubin 1.5 H, AST 48, ALT 59, Alkaline Phosphatase 351 H, Troponin I 0.03, NT-Pro-B Natriuret Pep 7190 H, Total Protein 6.4, Albumin 3.3 L, Globulin 3.1, Albumin/Globulin Ratio 1.1 07/13/24 04:45: Troponin I 0.03 07/13/24 04:56: WBC 7.8, RBC 3.33 L, Hgb 9.7 L, Hct 30.3 L, MCV 91.0, MCH 29.1, MCHC 32.0, RDW 20.9 H, Plt Count 468 H, MPV 9.3, Neut % (Auto) 61.7, Lymph % (Auto) 18.4, [place] % (Auto) 13.1 H, Eos % (Auto) 5.1, Baso % (Auto) 1.3, Neut # (Auto) 4.8, Lymph # (Auto) 1.4, Forest # (Auto) 1.0, Eos # (Auto) 0.4, Baso # (Auto) 0.1, Sodium 137, Potassium 3.2 L, Chloride 97 L, Carbon Dioxide 34 H, Anion Gap 9.2, BUN 24 H, Creatinine 1.60 H, Estimated Creat Clear 60, Estimated GFR 45 L, Est GFR ( Amer) 55 L, Glucose 109 H, Calcium 9.2, Magnesium 1.7 D, Total Bilirubin 1.5 H, AST 51, ALT 61, Alkaline Phosphatase 355 H, Total Protein 6.5, Albumin 3.4 L, Globulin 3.1, Albumin/Globulin Ratio 1.1 07/13/24 07:45: Troponin I 0.03 I & O for Last 24 hours: Intake & Output 07/10/24 07/11/24 07/12/24 07/13/24 23:59 23:59 23:59 23:59 Intake Total 698 / 698 Output Total 2500 / 2500 Balance -1802 / -1802 Weight 80 lb 3 oz Constitutional Constitutional: no acute distress and average body habitus *Routine HEENT Exam Head: Present normocephalic and atraumatic ENT: Present mucous membranes moist *Routine Neck Exam Neck: Present supple, full ROM and normal carotid upstroke; Absent JVD, carotid bruit or lymphadenopathy *Routine Respiratory Exam Respiratory: Present CTA bilaterally, normal respiratory effort, able to speak in complete sentences and symmetric chest movement *Routine Cardiovascular Exam Cardiovascular: Present RRR, Normal S1 and Normal S2; Absent murmur or gallop *Routine Abdominal Exam Abdominal: Present normoactive bowel sounds, distended and firm; Absent tenderness or organomegaly *Routine Extremities Exam Extremities: Present edema, full ROM, pulses intact and normal capillary refill; Absent cyanosis or clubbing *Routine Skin Exam Skin: Present intact and warm; Absent erythema *Routine Neurological Exam Neurological: Present alert, oriented X3 and CN II-XII intact; Absent sensory deficit or motor deficit Routine Psychiatric Exam Psychiatric: Present normal affect Meds Home Medications and Allergies Home Medications ?Medication ?Instructions ?Recorded ?Confirmed ?Type apixaban 5 mg tablet (Eliquis) 5 mg PO BID 30 days #60 tabs 06/15/24 07/13/24 Rx aspirin 81 mg tablet,delayed 81 mg PO DAILY 30 days #30 tabs 06/15/24 07/13/24 Rx release clopidogrel 75 mg tablet (Plavix) 75 mg PO DAILY 30 days #30 tabs 06/15/24 07/13/24 Rx metoprolol succinate 50 mg 50 mg PO DAILY 30 days #30 tabs 06/15/24 07/13/24 Rx tablet,extended release 24 hr (Toprol XL) atorvastatin 80 mg tablet 80 mg PO HS 07/07/24 07/13/24 History potassium chloride 20 mEq 20 meq PO BID 30 days #60 tabs 07/07/24 07/13/24 Rx tablet,extended release bumetanide 2 mg tablet 2 mg PO BID 07/13/24 07/13/24 History tamsulosin 0.4 mg capsule 0.4 mg PO HS Urine Flow 07/13/24 07/13/24 History New Prescriptions to Start Prescriptions: Allergies Allergy/AdvReac Type Severity Reaction Status Date / Time diclofenac (DICLOFENAC) Allergy Unknown Unknown Verified 07/06/24 22:56 allergy reaction Penicillins (PENICILLINS) Allergy Unknown Hives Verified 07/06/24 22:56 propoxyphene (PROPOXYPHENE) Allergy Unknown Unknown Verified 07/06/24 22:56 allergy reaction tramadol (TRAMADOL) Allergy Unknown Vomiting Verified 07/06/24 22:56 Assessment and Plan *Assessment and plan (1) Acute on chronic HFrEF (heart failure with reduced ejection fraction): Status: Acute Category: Medical Code(s): I50.23 - Acute on chronic systolic (congestive) heart failure (2) Volume overload: Status: Acute Qualifiers: Hypervolemia type: other Qualified Code(s): E87.79 - Other fluid overload Category: Medical Code(s): E87.70 - Fluid overload, unspecified (3) CAD (coronary artery disease): Status: Acute Qualifiers: Coronary Disease-Associated Artery/Lesion type: [place] artery [place] vs. transplanted heart: [place] heart Associated angina: with unspecified form of angina Qualified Code(s): I25.119 - Atherosclerotic heart disease of [place] coronary artery with unspecified angina pectoris Category: Medical Code(s): I25.10 - Atherosclerotic heart disease of [place] coronary artery without angina pectoris (4) Hyperlipidemia: Status: Chronic Qualifiers: Hyperlipidemia type: unspecified Qualified Code(s): E78.5 - Hyperlipidemia, unspecified Category: Medical Code(s): E78.5 - Hyperlipidemia, unspecified (5) LV (left ventricular) mural thrombus: Status: Acute Category: Medical Code(s): I51.3 - Intracardiac thrombosis, not elsewhere classified (6) Bilateral edema of lower extremity: Status: Acute Category: Medical Code(s): R60.0 - Localized edema (7) Severe left ventricular systolic dysfunction (LVSD): Status: Acute Category: Medical Code(s): I51.89 - Other ill-defined heart diseases (8) CKD stage 3a, GFR 45-59 ml/min: Status: Acute Category: Medical Code(s): N18.31 - Chronic kidney disease, stage 3a Plan Plan: 1. The patient was admitted to the hospital for acute on chronic HFrEF. The patient is being diuresed with IV Bumex drip. Will continue Bumex drip at this time at 2 mg/hour for continued diuresis. 2. The patient denies any chest pain or pressure. His troponin is negative. No plans for invasive left cardiac catheterization at this time. Coronary artery disease is likely stable. Continue aspirin and Plavix for dual antiplatelet therapy. 3. His blood pressure is well-controlled. Continue metoprolol. 4. His LDL goal is less than 55. His LDL is 91. He is on a statin. 5. The patient does have a history of an LV thrombus. He is on Eliquis. 6. The patient has been admitted to the hospital multiple times since the first of the year. The patient has historically been noncompliant with his medications. He states that he has been taking all of his medicines but this is very unlikely in the setting that he was just discharged last week and now he is significantly fluid overloaded again. The patient does have issues getting his medications and has issues with transportation. We do see that all of his medications were filled last month and are due to be filled again. 7. Will continue with diuresis with a Bumex drip at this time. If he is ready to be discharged home over the weekend then we recommend increasing his Bumex to 3 mg p.o. twice daily on an outpatient basis. 8. We do recommend that the patient be on Farxiga and Entresto. However he has had trouble affording these medications in the past so we will leave these off for now. We may have to consider an DEISY or ARB in the future if the patient does not get his insurance squared away to be able to afford his medications. 9. The patient does have chronic kidney disease. His creatinine is stable. 10. The patient has not made it to any of his outpatient follow-up appointments. I have stressed the importance with the patient of being compliant with his follow-up visit so we can keep him out of the hospital. The patient verbalizes understanding and states that he does have transportation issues. I have notified the patient about our transportation van here at [facility] that will pick patient up further appointments and take them home. He verbal izes understanding. Will make sure that the patient has the information for this transport prior to discharge. 11. Further recommendations will be made pending the patient's response to treatment. Thank you for the opportunity to help participate in the care of this patient. All recommendations and orders as per Dr. Bustillo.
[2024-07-13] MEDS: MAGNESIUM SULFATE IN WATER 2 GM/50 ML PIGGYBACK IV ×2 (12:06→13:30)
--- NOTE | 2024-07-13 13:13 | PC.NURSE ---
Student nurse, Jazlyn Green provided care under my supervision.
--- NOTE | 2024-07-13 18:43 | PC.NURSE ---
patient is a/ox4, remains on RA tolerating well. bumex infusing. voids per urinal. no c/o of pain or SOB. electrolyte protocol in place. call light within reach, no further requests at this time.
[2024-07-13 19:35] LABS: Chloride 94 mmol/L (98-107); Potassium 3.8 mmoL/L (3.5-5.1); Sodium 141 mmol/L (136-145)
[2024-07-13 19:38] LABS: Blood Urea Nitrogen 27 mg/dl (9-20); Calcium 9.4 mg/dl (8.4-10.2); Creatinine Clearance Estimated 27 mL/min (50-200); Estimated Glomerular Filt Rate 45 ml/min (>60); GFR (African American) 55 ML/MIN (>60); Glucose 126 mg/dl (74-100)
[2024-07-13 19:42] LABS: Anion Gap 10.8 mEq/L (5-15)
[2024-07-13 19:45] LABS: Carbon Dioxide 38 mmol/L (22.0-30.0)
[2024-07-13] MEDS: ATORVASTATIN 40MG TABLET 80 MG PO (20:32)
[2024-07-13] MEDS: TAMSULOSIN 0.4MG CAPSULE 0.4 MG PO (20:32)
[2024-07-14] VITALS: BP 118/78; PULSE 100; PULSE 79; RESP 16; TEMP 37; O2SAT 95
--- NOTE | 2024-07-14 02:54 | PC.NURSE ---
Pt resting in bed with eyes open. Still receiving bumex drip at 20mL/hour as ordered by provider. Pt denies pain or any additional needs at this time. VSS. Bed is low, locked, and call light is within reach.
[2024-07-14] MEDS: BUMETANIDE 10 MG in 0.9 % SODIUM CHLORIDE 60 ML 20 MG IV (03:21)
[2024-07-14 04:00] VITALS: BP 118/71; PULSE 100; RESP 16; TEMP 36.4; O2SAT 98; BMI 23.6
[2024-07-14 07:44] LABS: Basophils # 0.1 K/mm3 (0-0.2); Basophils % 1.3 % (0.1-2.0); Eosinophils # 0.2 K/mm3 (0.0-0.4); Eosinophils % 3.1 % (0.1-12.0); Hematocrit 33.3 % (42.0-52.0); Hemoglobin 10.9 g/dL (14.1-18.0); Lymphocytes # 1.2 K/mm3 (0.7-4.5); Lymphocytes % 15.7 % (10-50); Mean Corpuscular HGB Conc 32.7 g/dL (31.8-35.4); Mean Corpuscular Hemoglobin 29.6 pg (27.0-31.2); Mean Corpuscular Volume 90.5 fl (80-94); Mean Platelet Volume 9.3 fl (7.4-10.4); Monocytes # 0.8 K/mm3 (0.1-1.0); Monocytes % 10.1 % (1.7-9.3); Neutrophils # 5.4 K/mm3 (1.8-7.8); Neutrophils % 69.5 % (37.0-80.0); Platelet Count 522 K/mm3 (142-424); Red Blood Count 3.68 M/mm3 (4.60-6.20); Red Cell Distribution Width 20.8 % (11.5-17.5); White Blood Count 7.7 K/mm3 (4.8-10.8)
[2024-07-14 07:49] LABS: Albumin Level 3.9 g/dl (3.5-5.0); Chloride 92 mmol/L (98-107); Sodium 139 mmol/L (136-145)
[2024-07-14 07:50] LABS: Potassium 3.9 mmoL/L (3.5-5.1)
[2024-07-14 07:52] LABS: Alanine Aminotransferase 58 U/L (12-78); Albumin/Globulin Ratio 1.2 (1.1-1.8); Alkaline Phosphatase 220 U/L (38-126); Aspartate Amino Transferase 45 U/L (17-59); Bilirubin,Total 1.8 mg/dl (0.2-1.3); Blood Urea Nitrogen 26 mg/dl (9-20); Calcium 9.2 mg/dl (8.4-10.2); Creatinine Clearance Estimated 48 mL/min (50-200); Estimated Glomerular Filt Rate 42 ml/min (>60); GFR (African American) 51 ML/MIN (>60); Globulin 3.3 g/dL (1.3-3.2); Glucose 151 mg/dl (74-100); Total Protein,Serum 7.2 g/dl (6.3-8.2)
[2024-07-14 08:00] VITALS: BP 112/67; PULSE 106; RESP 17; TEMP 36.9; O2SAT 99
[2024-07-14 08:02] LABS: Anion Gap 12.9 mEq/L (5-15); Carbon Dioxide 38 mmol/L (22.0-30.0)
--- NOTE | 2024-07-14 08:18 | EXP.DC.SUM ---
General Admission date:: 07/13/24 Discharge date: 07/14/24 HPI HPI HPI: This is a 54-year-old male with a past medical history of systolic heart failure with an EF of 15 to 20%, CKD stage III, hyperlipidemia, hypertension, BPH who presents to the emergency department today with complaints of shortness of breath. He reports being compliant with his home medications since discharge 1 week ago, although he has a history of medical noncompliance. States that he developed significant cough and shortness of breath this evening. Also noted increase in swelling in his lower extremities. Also states that his abdomen feels tight. He denies fever. Emergency department workup notable for acute on chronic heart failure exacerbation. Laboratory evaluation notable for potassium of 3.0, BNP of 7000 with prior hospitalization BNP of 3000 gross, anasarca noted up to umbilicus. Oxygenating well on room air. Chest x-ray with mild edema noted. Given patient's complaints of shortness of breath and elevated BNP, he will be admitted to the hospital service for IV diuresis Hospital Course Hospital Course Hospital Course: Manuel Gonsales is a 54-year-old disabled gentleman who presented with recurrence of acute on chronic heart failure with reduced ejection fraction. Patient was discharged a month ago with similar presentation. Condition complicated by CAD, medical noncompliance, BPH. Case management has assisted with trying to get patient insurance. He needs to go to the Medicaid office to complete his insurance. We have worked with him for the past 2 months with limited success. He has responded to resumption of previous medication regimen recommended by cardiology. Cardiology assisted with care during this admission as well. At this time he is medically stable to discharge home. LifeVest placed prior to discharge. States he has a ride for Tuesday to get to the Medicaid office to complete his insurance requirements. On room air. Problems addressed as follows: Acute on chronic Heart failure with reduced ejection fraction. CAD status post SANAZ 03/2024 LV thrombus -New dx 03/2024 with late presentation [place] and EF 15 to 20%. Initiated on diuretics. -8 L since admission. Responded well to Bumex drip this admission. Will add spironolactone 50 mg daily for sequential diuresis. Hold potassium replacement. Refilled all medications. Patient still has struggles with insurance that have been addressed multiple times before. At this point, his insurance issues are in his own hands as he needs to complete paperwork with Medicare. Case management has attempted on all previous admissions to assist, we are unfortunately able to assist. Patient has been informed of this multiple times. Resumed all goal-directed therapy medications at discharge. See med rec for full details. Encouraged patient to pick them up. He also requested paperwork to assist with housing. Informed him that this would best be done by his primary care or outpatient providers due to continued need for follow-up and better attestation of his chronic condition. Currently lives with his son. Strong concern that patient has consistently shown limited self-determination of his health condition. CKD-III: At baseline on day of discharge with creatinine 1.7, BUN 26. Noncompliance: discussed again with patient the need to obtain his medications. We have done all we can to assist with insurance. He needs to personally appear at the [facility] office to complete his Medicaid and show proof of income and expenses. Provided with numbers to contact Medicaid. Encouraged to complete this as soon as possible as his financial situation/insurance situation greatly impacts his health and there is no more I can do to help him. Encouraged to keep follow-up appointments. #BPH: Continue home tamsulosin 0.4 mg daily Total time spent on discharge: 34 minutes on chart review, counseling, documentation, discussion with subspecialist and case management, and direct care with patient. Exam Data for Last 24 hours Vital signs and Labs for Last 24 Hours: Temp Pulse Resp BP Pulse Ox O2 Del Method 97.6 F 100 H 16 118/71 98 Room Air 07/14/24 04:00 07/14/24 04:00 07/14/24 04:00 07/14/24 04:00 07/14/24 04:00 07/14/24 06:26 Laboratory Results - last 24 hr 07/13/24 07:45: Troponin I 0.03 07/13/24 19:18: Sodium 141, Potassium 3.8, Chloride 94 L, Carbon Dioxide 38 H, Anion Gap 10.8, BUN 27 H, Creatinine 1.60 H, Estimated Creat Clear 27, Estimated GFR 45 L, Est GFR ( Amer) 55 L, Glucose 126 H, Calcium 9.4 07/14/24 07:15: WBC 7.7, RBC 3.68 L, Hgb 10.9 L, Hct 33.3 L, MCV 90.5, MCH 29.6, MCHC 32.7, RDW 20.8 H, Plt Count 522 H, MPV 9.3, Neut % (Auto) 69.5, Lymph % (Auto) 15.7, [place] % (Auto) 10.1 H, Eos % (Auto) 3.1, Baso % (Auto) 1.3, Neut # (Auto) 5.4, Lymph # (Auto) 1.2, [place] # (Auto) 0.8, Eos # (Auto) 0.2, Baso # (Auto) 0.1, Sodium 139, Potassium 3.9, Chloride 92 L, Carbon Dioxide 38 H, Anion Gap 12.9, BUN 26 H, Creatinine 1.70 H, Estimated Creat Clear 48, Estimated GFR 42 L, Est GFR ( Amer) 51 L, Glucose 151 H, Calcium 9.2, Magnesium 2.0 D, Total Bilirubin 1.8 H, AST 45, ALT 58, Alkaline Phosphatase 220 H, Total Protein 7.2, Albumin 3.9 D, Globulin 3.3 H, Albumin/Globulin Ratio 1.2 I & O for Last 24 hours: Intake & Output 07/11/24 07/12/24 07/13/24 07/14/24 23:59 23:59 23:59 23:59 Intake Total 2308 / 2408 200 / 200 Output Total 7900 / 9500 3270 / 3270 Balance -5592 / -7092 -3070 / -3070 Weight 36.372 kg 68.084 kg Constitutional Constitutional: no acute distress, thin, chronically ill appearing and cooperative *Routine HEENT Exam Head: Present normocephalic Eye: Present EOMI and PERRL ENT: Present mucous membranes moist *Routine Neck Exam Neck: Present supple; Absent lymphadenopathy *Routine Respiratory Exam Respiratory: Present CTA bilaterally; Absent rhonchi, wheezes or crackles *Routine Cardiovascular Exam Cardiovascular: Present tachycardia Comments: Regular rhythm, tachycardic ~100 *Routine Abdominal Exam Abdominal: Present soft and normoactive bowel sounds; Absent tenderness *Routine Rectal Exam Patient deferred: visual exam *Routine Exam Patient deferred: penile exam *Routine Extremities Exam Extremities: Present edema (Trace bilateral lower extremity to knees); Absent cyanosis or clubbing *Routine Skin Exam Skin: Present intact and warm; Absent rash *Routine Neurological Exam Neurological: Present alert, oriented X3 and moving all extremities; Absent altered mental status Routine Psychiatric Exam Psychiatric: Present normal affect; Absent good insight or good judgment Results Data Completed and Pending Labs on day of discharge: Labs from last 24 hours 07/14/24 07/13/24 07/13/24 07:15 19:18 07:45 WBC 7.7 RBC 3.68 L Hgb 10.9 L Hct 33.3 L MCV 90.5 MCH 29.6 MCHC 32.7 RDW 20.8 H Plt Count 522 H MPV 9.3 Neut % (Auto) 69.5 Lymph % (Auto) 15.7 [place] % (Auto) 10.1 H Eos % (Auto) 3.1 Baso % (Auto) 1.3 Neut # (Auto) 5.4 Lymph # (Auto) 1.2 [place] # (Auto) 0.8 Eos # (Auto) 0.2 Baso # (Auto) 0.1 Sodium 139 141 Potassium 3.9 3.8 Chloride 92 L 94 L Carbon Dioxide 38 H 38 H Anion Gap 12.9 10.8 BUN 26 H 27 H Creatinine 1.70 H 1.60 H Estimated Creat Clear 48 27 Estimated GFR 42 L 45 L Est GFR ( Amer) 51 L 55 L Glucose 151 H 126 H Calcium 9.2 9.4 Magnesium 2.0 D Total Bilirubin 1.8 H AST 45 ALT 58 Alkaline Phosphatase 220 H Troponin I 0.03 Total Protein 7.2 Albumin 3.9 D Globulin 3.3 H Albumin/Globulin Ratio 1.2 DS: Diagnosis Discharge Diagnosis (1) Acute on chronic HFrEF (heart failure with reduced ejection fraction): Status: Acute Code(s): I50.23 - Acute on chronic systolic (congestive) heart failure (2) Hypokalemia: Status: Acute Code(s): E87.6 - Hypokalemia (3) Medically noncompliant: Status: Acute Code(s): Z91.199 - Patient's noncompliance with other medical treatment and regimen due to unspecified reason (4) CAD (coronary artery disease): Status: Acute Code(s): I25.10 - Atherosclerotic heart disease of [place] coronary artery without angina pectoris Qualifiers: Associated angina: with unspecified form of angina Coronary Disease-Associated Artery/Lesion type: [place] artery [place] vs. transplanted heart: [place] heart Qualified Code(s): I25.119 - Atherosclerotic heart disease of [place] coronary artery with unspecified angina pectoris (5) CKD stage 3a, GFR 45-59 ml/min: Status: Acute Code(s): N18.31 - Chronic kidney disease, stage 3a (6) Hyperlipidemia: Status: Chronic Code(s): E78.5 - Hyperlipidemia, unspecified Qualifiers: Hyperlipidemia type: unspecified Qualified Code(s): E78.5 - Hyperlipidemia, unspecified (7) BPH (benign prostatic hyperplasia): Status: Chronic Code(s): N40.0 - Benign prostatic hyperplasia without lower urinary tract symptoms Qualifiers: Lower urinary tract symptom detail: urinary hesitancy Lower urinary tract symptom presence: symptoms present Qualified Code(s): N40.1 - Benign prostatic hyperplasia with lower urinary tract symptoms; R39.11 - Hesitancy of micturition Meds Home Medications and Allergies Home Medications ?Medication ?Instructions ?Recorded ?Confirmed ?Type apixaban 5 mg tablet (Eliquis) 5 mg PO BID 30 days #60 tabs 07/14/24 Rx aspirin 81 mg tablet,delayed 81 mg PO DAILY 30 days #30 tabs 07/14/24 Rx release atorvastatin 80 mg tablet 80 mg PO HS 30 days #30 tabs 07/14/24 Rx bumetanide 2 mg tablet 2 mg PO BID 30 days #60 tabs 07/14/24 Rx clopidogrel 75 mg tablet (Plavix) 75 mg PO DAILY 30 days #30 tabs 07/14/24 Rx metoprolol succinate 50 mg 50 mg PO DAILY 30 days #30 tabs 07/14/24 Rx tablet,extended release 24 hr (Toprol XL) spironolactone 50 mg tablet 50 mg PO DAILY #30 tabs 07/14/24 Rx tamsulosin 0.4 mg capsule 0.4 mg PO HS Urine Flow 30 days 07/14/24 Rx #30 caps New Prescriptions to Start Prescriptions: apixaban [Eliquis] Jace Haney aspirin [place],Jace atorvastatin Jace Haney bumetanide Jace Haney clopidogrel [Plavix] Jace Haney metoprolol succinate [Toprol XL] Jace Haney spironolactone [place],Jace tamsulosin Jace Haney Allergies Allergy/AdvReac Type Severity Reaction Status Date / Time diclofenac (DICLOFENAC) Allergy Unknown Unknown Verified 07/06/24 22:56 allergy reaction Penicillins (PENICILLINS) Allergy Unknown Hives Verified 07/06/24 22:56 propoxyphene (PROPOXYPHENE) Allergy Unknown Unknown Verified 07/06/24 22:56 allergy reaction tramadol (TRAMADOL) Allergy Unknown Vomiting Verified 07/06/24 22:56 Discharge Plan Disposition Patient Disposition: Home, Self-Care Condition: Good Follow up Plan Follow up with: John Jamil DO [Non-Staff] - Enter time for follow up (PLEASE CALL OFFICE FOR FOLLOW UP APPOINTMENT) Constantin Bustillo MD [Staff Physician] - Enter time for follow up (needs to be seen in 1 week. OFFICE WILL CALL FOR FOLLOW UP APPOINTMENT.) Prescriptions/Medication Reconciliation: New spironolactone 50 mg tablet 50 mg PO DAILY Qty: 30 0RF Continued atorvastatin 80 mg Tablet 80 mg PO HS 30 Days Qty: 30 0RF bumetanide 2 mg tablet 2 mg PO BID 30 Days Qty: 60 0RF metoprolol succinate [Toprol XL] 50 mg Tablet Extended Release 24 Hr 50 mg PO DAILY 30 Days Qty: 30 0RF clopidogrel [Plavix] 75 mg Tablet 75 mg PO DAILY 30 Days Qty: 30 0RF aspirin 81 mg Tablet,Delayed Release (Dr/Ec) 81 mg PO DAILY 30 Days Qty: 30 0RF tamsulosin 0.4 mg Capsule 0.4 mg PO HS 30 Days Qty: 30 0RF Eliquis 5 mg Tablet 5 mg PO BID 30 Days Qty: 60 0RF Discontinued potassium chloride 20 mEq Tablet Extended Release 20 meq PO BID 30 Days Qty: 60 0RF Problem Reconciliation Problems Reviewed?: Yes Patient Discharge Instructions ACTIVITY: Continue current activity DIET: continue same diet Patient Instructions: DI for Heart Failure Print Language: Tristanian Providers Primary Care Provider: Provider,Referral Admit Provider: Jace Haney Attending Provider: Jace Haney
[2024-07-14] MEDS: METOPROLOL SUCCINATE XL 50MG TABLET 50 MG PO (08:29)
[2024-07-14] MEDS: APIXABAN 5MG TABLET 5 MG PO (08:29)
[2024-07-14] MEDS: CLOPIDOGREL 75MG TAB 75 MG PO (08:29)
[2024-07-14] MEDS: ASPIRIN EC 81MG TABLET 81 MG PO (08:29)
--- NOTE | 2024-07-14 08:37 | PC.NURSE ---
Student nurse, Jazlyn Green is providing care today under my supervision.
--- NOTE | 2024-07-16 11:58 | SW/DCPLANNER ---
Spoke with patient on the phone. Patient stated that he feels good and is taking a walk right now. Patient stated that he has his appointments hanging up on hid fridge. I called and made patient an appointment with Dr lindsey office on July 18 at 9. Patient stated that he is going to call [facility] and get a ride. Patient stated that he was able to get his new medicine picked up. Patient stated that he has no concerns or questions at this time. Rahel Harris
== END 2024-07-14 10:14 | disposition home or self-care (01) ==
LOC: ER 01:32 → 2ND 03:19
PROVIDERS: Nurse Practitioner Acute Care; Admitting Provider Internal Medicine Adolescent Medicine; Emergency Provider Emergency Medicine; Visit Provider Internal Medicine Adolescent Medicine
DX: I13.0 Hypertensive heart and chronic kidney disease with heart failure and stage 1 through stage 4 chronic kidney disease, or unspecified chronic kidney disease (principal); I50.23 Acute on chronic systolic (congestive) heart failure; N18.30 Chronic kidney disease, stage 3 unspecified; I25.10 Atherosclerotic heart disease of native coronary artery without angina pectoris; I25.2 Old myocardial infarction; E78.5 Hyperlipidemia, unspecified; N40.0 Benign prostatic hyperplasia without lower urinary tract symptoms; D64.9 Anemia, unspecified; E87.6 Hypokalemia; R91.8 Other nonspecific abnormal finding of lung field; R39.11 Hesitancy of micturition; Z91.141 Patient's other noncompliance with medication regimen due to financial hardship; Z87.891 Personal history of nicotine dependence; Z91.198 Patient's noncompliance with other medical treatment and regimen for other reason; Z98.890 Other specified postprocedural states; Z79.01 Long term (current) use of anticoagulants; Z79.82 Long term (current) use of aspirin; Z79.899 Other long term (current) drug therapy; Z88.5 Allergy status to narcotic agent; Z88.0 Allergy status to penicillin; Z88.8 Allergy status to other drugs, medicaments and biological substances; Z59.82 Transportation insecurity
CPT/HCPCS: 36415; 71045; 80048; 80053; 83735; 83880; 84484; 85025; 93005; 99285; G0378; J1939; J3475

== ENCOUNTER 2024-07-18 03:01 | Observation (INO) | payer MEDICARE, MEDICAID, SELFPAY ==
[2024-07-18] VITALS (12 sets, daily range): BP systolic 113–140; BP diastolic 75–95; PULSE 100–116; RESP 14–29; TEMP 36.4–36.8; O2SAT 97–100; BMI 24.1; BMI 26.0; BMI 26.4
--- NOTE | 2024-07-18 03:14 | ECG_ITS ---
APPROVED REPORT Exam: Resting ECG HR:118 bpm ECG Measurements Heart Rate 118 AXES OH 180 P 75 QRSd 84 QRS -39 QT 436 T 71 QTc 506 Conclusion SINUS TACHYCARDIA INDETERMINATE AXIS POSSIBLE ANTERIOR MYOCARDIAL INFARCTION , PROBABLY OLD [30 ms Q WAVE IN V3/V4, OR R < 0.2 mV IN V4] No STEMI Electronically signed by : LENNY ABDALLA, 07/18/2024 06:22:59
[2024-07-18] MEDS: ASPIRIN 81MG CHEWABLE TABLET 324 MG PO (03:29)
[2024-07-18 03:30] LABS: Basophils # 0.1 K/mm3 (0-0.2); Basophils % 1.1 % (0.1-2.0); Eosinophils # 0.2 K/mm3 (0.0-0.4); Eosinophils % 1.7 % (0.1-12.0); Hematocrit 31.5 % (42.0-52.0); Hemoglobin 10.2 g/dL (14.1-18.0); Lymphocytes # 1.6 K/mm3 (0.7-4.5); Mean Corpuscular HGB Conc 32.4 g/dL (31.8-35.4); Mean Corpuscular Hemoglobin 29.5 pg (27.0-31.2); Mean Platelet Volume 9.5 fl (7.4-10.4); Monocytes # 0.7 K/mm3 (0.1-1.0); Monocytes % 7.8 % (1.7-9.3); Neutrophils # 6.6 K/mm3 (1.8-7.8); Neutrophils % 71.2 % (37.0-80.0); Platelet Count 433 K/mm3 (142-424); Red Blood Count 3.46 M/mm3 (4.60-6.20); Red Cell Distribution Width 20.7 % (11.5-17.5); White Blood Count 9.3 K/mm3 (4.8-10.8)
[2024-07-18 03:33] LABS: VBG Base Excess 1.4 mmol/L (-2.4-2.3); VBG HCO3 25.7 mmol/L (23-30); VBG Oxygen Saturation 91.4 % (50-70); VBG PCO2 39.8 mmol/L (35-51); VBG PH 7.43 mmol/L (7.31-7.41); VBG PO2 62.7 mmol/L (28-40); VBG Total CO2 26.9 mmol/L (23-27)
[2024-07-18 03:36] LABS: Lactate Venous 2.3 mmol/L (0.4-2.0)
[2024-07-18 03:47] LABS: Alanine Aminotransferase 44 U/L (12-78); Albumin/Globulin Ratio 1.1 (1.1-1.8); Alkaline Phosphatase 296 U/L (38-126); Anion Gap 16.2 mEq/L (5-15); Aspartate Amino Transferase 48 U/L (17-59); Bilirubin,Total 1.2 mg/dl (0.2-1.3); Blood Urea Nitrogen 27 mg/dl (9-20); Calcium 8.8 mg/dl (8.4-10.2); Carbon Dioxide 27 mmol/L (22.0-30.0); Chloride 97 mmol/L (98-107); Creatinine Clearance Estimated 56 mL/min (50-200); Estimated Glomerular Filt Rate 49 ml/min (>60); GFR (African American) 59 ML/MIN (>60); Globulin 3.7 g/dL (1.3-3.2); Glucose 136 mg/dl (74-100); Potassium 4.2 mmoL/L (3.5-5.1); Sodium 136 mmol/L (136-145); Total Protein,Serum 7.7 g/dl (6.3-8.2)
--- NOTE | 2024-07-18 03:47 | ED_ITS ---
Discharge Plan Disposition Patient Disposition: Admitted Condition: Fair Clinical Impressions Clinical Impression: Fluid overload, Breath shortness Cough Qualifiers: Cough type: unspecified Qualified Code(s): R05.9 - Cough, unspecified Discharge ED Provider: Carmen Dickerson General Chief Complaint: Chest Pain Stated Complaint: chest pain Time Seen by Provider: 07/18/24 03:24 Mode of Arrival: EMS Source of Information: Patient and EMS Description of Symptoms (Recalled from ER Triage Doc. by RN): Patient to ED via [facility] with complaints of chest pain that he states is due to fluid overload. He states that approx 0245 he started having chest pain that is throbbing and rates pain 8/10. Patient complains of SOA, and diaphoretic upon arrival. Patient also states that he is taking medications as prescibed and supposed to be wearing a life vest but is unable to do so in past couple of days due to abdominal swelling, and it was uncomfortable. History of Present Illness HPI narrative: 54-year-old male well-known to this ER presents via EMS for complaints of chest pain, shortness of breath which he believes is related to fluid overload. He also reports that he started having coughing a couple days ago and tonight it got worse and when he coughs his left-sided chest pain is worse. Patient reports he is supposed to be wearing a LifeVest but is unable to for the last few days because his abdomen has been swelling and his vest was uncomfortable. Patient reports he is being compliant with his home medications. No recent fevers, chills, headache, dizziness, numbness, tingling, weakness. Patient does have a history of HFrEF, CAD, CKD, and review of records demonstrates he often ends up admitted to the hospital for 1 to 2 days, has improvement of symptoms in his discharge, he then returns a few weeks later for similar complaints with which he presented today. No recent fevers, chills, sore throat, or congestion. No abdominal pain, nausea, vomiting, diarrhea, dysuria, or hematuria. Related Data Previous Rx's ?Medication ?Instructions ?Recorded apixaban 5 mg tablet (Eliquis) 5 mg PO BID 30 days #60 tabs 07/14/24 aspirin 81 mg tablet,delayed 81 mg PO DAILY 30 days #30 tabs 07/14/24 release atorvastatin 80 mg tablet 80 mg PO HS 30 days #30 tabs 07/14/24 bumetanide 2 mg tablet 2 mg PO BID 30 days #60 tabs 07/14/24 clopidogrel 75 mg tablet (Plavix) 75 mg PO DAILY 30 days #30 tabs 07/14/24 metoprolol succinate 50 mg 50 mg PO DAILY 30 days #30 tabs 07/14/24 tablet,extended release 24 hr (Toprol XL) spironolactone 50 mg tablet 50 mg PO DAILY #30 tabs 07/14/24 tamsulosin 0.4 mg capsule 0.4 mg PO HS Urine Flow 30 days 07/14/24 #30 caps Allergies Allergy/AdvReac Type Severity Reaction Status Date / Time diclofenac (DICLOFENAC) Allergy Unknown Unknown Verified 07/06/24 22:56 allergy reaction Penicillins (PENICILLINS) Allergy Unknown Hives Verified 07/06/24 22:56 propoxyphene (PROPOXYPHENE) Allergy Unknown Unknown Verified 07/06/24 22:56 allergy reaction tramadol (TRAMADOL) Allergy Unknown Vomiting Verified 07/06/24 22:56 [facility] Disclaimer: The information contained in this section may have been updated after the patient was seen, as this information can be updated by other users. Medical History Medically noncompliant Bilateral edema of lower extremity CKD stage 3a, GFR 45-59 ml/min CAD (coronary artery disease) Acute on chronic HFrEF (heart failure with reduced ejection fraction) Pneumonia Chest pain Pulmonary infiltrate Hyponatremia Bed bug bite CHF (congestive heart failure) Right atrial thrombus Acute decompensated heart failure Fatigue Nodule of left lung Severe left ventricular systolic dysfunction (LVSD) Transaminitis RENAY (acute kidney injury) Anasarca LV (left ventricular) mural thrombus Acute hypoxemic respiratory failure Cardiogenic shock Non-STEMI (non-ST elevated myocardial infarction) Acute HFrEF (heart failure with reduced ejection fraction) Pneumonia Pleural effusion, bilateral Vitamin B12 deficiency Allergic rhinitis BPH (benign prostatic hyperplasia) Hyperlipidemia Insomnia Partial tear of right Achilles tendon Surgical History History of back surgery Family History Other No significant family history Social History (Updated 07/13/24 @ 03:53 by Susy Christy RN) Smoking Status: Current every day smoker tobacco type: smokeless tobacco alcohol intake: never substance use type: former substance user and heroin current occupational status: unemployed Travel in the last 8 weeks: None Other Medical History Have you received the Flu Vaccine for this season: No Have you received the Pneumonia Vaccine: No ROS Obtained: Yes Systems reviewed as appropriate & no additional complaints except as documented Per HPI Physical Exam General General appearance: alert and in no apparent distress Head Head exam: atraumatic and normocephalic Eye Eye exam: Present PERRL and EOMI ENT ENT exam: Present mucous membranes moist Neck Neck exam: Present normal inspection and full ROM Chest Chest inspection: Present symmetric chest wall rise Respiratory Respiratory exam: Present normal lung sounds bilaterally; Absent respiratory distress, wheezes or stridor Cardiovascular Cardiovascular exam: Present normal rhythm and tachycardia Abdominal Exam Abdominal exam: Present soft; Absent distention or tenderness Comment: Patient reports his abdomen feels distended but he does not have a distended, rigid abdomen on exam. Abdomen is soft, nontender. Extremities Exam Extremities exam: Present full ROM and edema (Trace bilateral lower extremity pitting edema) Neurological Exam Neurological exam: Present alert and oriented X3; Absent motor sensory deficit Psychiatric Psychiatric exam: Present normal affect and normal mood Skin Skin exam: Present warm and dry HEART Score HEART Score HEART Score assessment performed?: Yes History (anamnesis): Slightly suspicious ECG: Non-specific disturbance Age: 45-65 years Risk factors: 3 or more risk factors Troponin: </= normal limit HEART Score: 4 Critical Care Critical Care Time Critical Care Time: No Medical Decision Making Medical Records Medical records reviewed: Yes I reviewed the patient's medical records. MR Comment: discharge summary from the hospitalist demonstrates patient was admitted to the hospital on 07/13/2024 and discharged the next day. He was admitted with BNP greater than 7000, shortness of breath. Matty Inquiry Pt receiving controlled substance: No Vital Signs Vital Signs: 07/18/24 03:19 07/18/24 03:19 07/18/24 03:30 Temperature 98.2 F Temperature Source Oral Pulse Rate 114 H 113 H Pulse Rate [Right] 116 H Respiratory Rate 17 29 H Blood Pressure 134/93 H Blood Pressure [Right Arm] 140/91 H Blood Pressure Mean Blood Pressure Mean [Right Arm] 107 Blood Pressure Source [Right Arm] Automatic Cuff Blood Pressure Position [Right Arm] Supine 02 Sat by Pulse Oximetry 100 97 Oxygen Delivery Method Room Air Room Air 07/18/24 04:00 07/18/24 04:30 07/18/24 05:00 Temperature Temperature Source Pulse Rate 116 H 110 H 109 H Pulse Rate [Right] Respiratory Rate 20 20 20 Blood Pressure 122/95 H 131/95 H 134/95 H Blood Pressure [Right Arm] Blood Pressure Mean 101 101 Blood Pressure Mean [Right Arm] Blood Pressure Source [Right Arm] Blood Pressure Position [Right Arm] 02 Sat by Pulse Oximetry 98 100 98 Oxygen Delivery Method Room Air Room Air Room Air Lab Data Labs: Lab Results 07/18/24 03:23: WBC 9.3, RBC 3.46 L, Hgb 10.2 L, Hct 31.5 L, MCV 91.0, MCH 29.5, MCHC 32.4, RDW 20.7 H, Plt Count 433 H, MPV 9.5, Neut % (Auto) 71.2, Lymph % (Auto) 17.0, [place] % (Auto) 7.8, Eos % (Auto) 1.7, Baso % (Auto) 1.1, Neut # (Auto) 6.6, Lymph # (Auto) 1.6, [place] # (Auto) 0.7, Eos # (Auto) 0.2, Baso # (Auto) 0.1, Sodium 136, Potassium 4.2, Chloride 97 L, Carbon Dioxide 27, Anion Gap 16.2 H, BUN 27 H, Creatinine 1.50 H, Estimated Creat Clear 56, Estimated GFR 49 L, Est GFR ( Amer) 59, Glucose 136 H, Calcium 8.8, Total Bilirubin 1.2, AST 48, ALT 44, Alkaline Phosphatase 296 H, Troponin I 0.03, NT-Pro-B Natriuret Pep 6600 H, Total Protein 7.7, Albumin 4.0, Globulin 3.7 H, Albumin/Globulin Ratio 1.1 07/18/24 03:24: VBG pH 7.43 H, VBG pCO2 39.8, VBG pO2 62.7 H, VBG HCO3 25.7, VBG Total CO2 26.9, VBG O2 Saturation 91.4 H, VBG Base Excess 1.4, VBG Lactic Acid 2.3 H 07/18/24 03:41: D-Dimer 1.10 H 07/18/24 03:23 07/18/24 03:23 Response Orders (Tests/Meds): ED MEDICATIONS Generic Name Dose Route Start Last Admin Trade Name Claudio PRN Reason Stop Dose Admin Acetaminophen 650 mg 07/18/24 04:45 Acetaminophen 325mg Tab PO 08/17/24 04:44 Q4HP PRN Fever or Mild Pain (1-3) Hydrocodone Bitart/Acetaminophen 1 tab 07/18/24 04:45 Hydrocodone/Apap 5/325 Mg Tablet PO 08/17/24 04:44 Q4HP PRN Mild to Moderate Pain (1-6) Benzonatate 200 mg 07/18/24 04:45 Benzonatate 100mg Capsule PO 08/17/24 08:59 TID PRN cough Bumetanide 2 mg 07/18/24 09:00 Bumetanide 1mg/4ml Vial IV 08/17/24 08:59 BID NOVA Ondansetron HCl 4 mg 07/18/24 04:45 Ondansetron 4mg/2ml Vial IV 08/17/24 04:44 Q8HP PRN Nausea Sodium Chloride 10 ml 07/18/24 04:45 Sodium Chloride 0.9% 10ml Flush Syringe IV 08/17/24 04:44 NEEDED PRN Maintain IV Site Discontinued Medications Generic Name Dose Route Start Last Admin Trade Name Claudio PRN Reason Stop Dose Admin Aspirin 324 mg 07/18/24 03:25 07/18/24 03:29 Aspirin 81mg Chewable Tablet PO 07/18/24 03:26 324 mg ONCE ONE Administration Bumetanide 2 mg 07/18/24 04:07 07/18/24 04:15 Bumetanide 1mg/4ml Vial IV 07/18/24 04:08 2 mg ONCE ONE Administration Iopamidol 70 ml 07/18/24 04:29 07/18/24 04:30 Iopamidol-370 (76%);100ml Bottle IV 07/18/24 04:30 70 ml ONCE ONE Administration Sodium Chloride 50 ml 07/18/24 04:29 07/18/24 04:30 0.9 % Sodium Chloride 50 Ml Vial IV 07/18/24 04:30 50 ml ONCE ONE Administration Sodium Chloride 10 ml 07/18/24 04:29 07/18/24 04:30 Sodium Chloride 0.9% 10ml Syr (Rad Only) IV 07/18/24 04:30 10 ml ONCE ONE Administration ORDERS Category Date Time Status CT angio chest PE protocol Stat Cat Scan 07/18/24 04:08 Completed BNP [NT Pro Brain Natriuretic Pep.] Stat Lab 07/18/24 03:23 Completed CBC w/Auto Diff [Complete Blood Count Auto Diff] Stat Lab 07/18/24 03:23 Completed CMP [Comprehensive Metabolic Panel] Stat Lab 07/18/24 03:23 Completed D-Dimer Stat Lab 07/18/24 03:41 Completed Full Resp Panel w/COVID ([facility]) Routine Lab 07/18/24 03:53 Received Trop I [Troponin I] Stat Lab 07/18/24 03:23 Completed Troponin I Q3H Lab 07/18/24 06:30 Ordered Troponin I Q3H Lab 07/18/24 09:30 Ordered Urinalysis and Microscopic Stat Lab 07/18/24 03:51 Ordered VBG [Venous Blood Gas] Stat RT 07/18/24 03:24 Completed MDM Narrative Medical Decision Narrative: In summary, this 54-year-old male with comorbidities described in the HPI which are not at goal therapy presents to the emergency department today with chest pain, shortness of breath. On initial evaluation patient is tachycardic, tachypneic, hemodynamically stable otherwise, afebrile, has peripheral edema, patient complains of distended abdomen but does not have a truly distended, rigid abdomen on exam. Lungs with rhonchi rales bilaterally. Differential diagnosis includes but is not limited to CHF exacerbation, ACS, PE, fluid overload, electrolyte abnormality, kidney dysfunction, also considered the possibility of viral syndrome, pneumonia since patient has been having a hacking cough while in the ER. Based on these concerns, I ordered serum labs, cardiac workup, D-dimer, chest x-ray. With his cough I also considered viral syndrome and added full respiratory panel to his workup. ECG personally interpreted demonstrates sinus tachycardia, rate 118, indeterminate axis, normal IL and QTc, no STEMI. Patient received IV Bumex. Labs personally reviewed demonstrate no leukocytosis, anemia only slightly changed from day of discharge a few days ago, pH 7.43, no hypercarbia, VBG lactic 2.3, CMP nonactionable, initial troponin stable from prior at 0.03. BNP elevated at 6600. D-dimer elevated at 1.10. I changed my order for chest x-ray to a CTA PE instead to evaluate for possible pulmonary embolism. CTA PE personally interpreted does not demonstrate large PE, patient does have evidence of pulmonary edema throughout the lung parmar. See radiology read for final interpretation. On reassessment patient continues having a dry, hacking cough. He also remains somewhat tachycardic. Unfortunately he is not a good candidate for a fluid bolus since he is already fluid overloaded. I am concerned about the possibility of developing infection though he does not meet sepsis criteria at this time. With his fluid overload and concern for developing respiratory infection, I discussed this case with the hospitalist who graciously accepted the patient for admission. patient was admitted in stable condition.
[2024-07-18 03:57] LABS: NT Pro Brain Natriuretic Pep. 6600 pg/mL (0-125); Troponin I 0.03 ng/ml (0.00-0.034)
[2024-07-18 04:01] LABS: Adenovirus,PCR Not Detected (NotDetected); Bordetella Pertussis Not Detected (NotDetected); Chlamydophila Pneumoniae, PCR Not Detected (NotDetected); Coronavirus 19, PCR Not Detected (NotDetected); Coronavirus 229E Not Detected (NotDetected); Coronavirus NL63 Not Detected (NotDetected); Coronavirus OC43 Not Detected (NotDetected); Coronovirus HKU1,PCR Not Detected (NotDetected); Human Metapneumovirus Not Detected (NotDetected); Influenza A, PCR Not Detected (NotDetected); Influenza AH1, 2009 Not Detected (NotDetected); Influenza AH1, PCR Not Detected (NotDetected); Influenza AH3,PCR Not Detected (NotDetected); Influenza B, PCR Not Detected (NotDetected); Mycoplasma Pneumoniae, PCR Not Detected (NotDetected); Parainfluenza 1, PCR Not Detected (NotDetected); Parainfluenza 2, PCR Not Detected (NotDetected); Parainfluenza 3, PCR Not Detected (NotDetected); Parainfluenza 4, PCR Not Detected (NotDetected); Respiratory Syncytial Virus Not Detected (NotDetected); Rhinovirus/Enterovirus Not Detected (NotDetected)
--- NOTE | 2024-07-18 04:07 | PC.NURSE ---
Pt to xray via wheelchair
--- NOTE | 2024-07-18 04:08 | CT_ITS ---
PROCEDURE INFORMATION: Exam: CTA Chest With Contrast Exam date and time: 07/18/2024 4:16 AM Age: 54 years old Clinical indication: Shortness of breath; Additional info: SOA dimer elevated cough TECHNIQUE: Imaging protocol: Computed tomographic angiography of the chest with contrast. Exam focused on the arteries. 3D rendering (Not supervised by radiologist): MIP and/or 3D reconstructed images were created by the technologist. Radiation optimization: All CT scans at this facility use at least one of these dose optimization techniques: automated exposure control; mA and/or kV adjustment per patient size (includes targeted exams where dose is matched to clinical indication); or iterative reconstruction. Contrast material: ISOVUE; Contrast volume: 70 ml; Contrast route: INTRAVENOUS (IV); COMPARISON: CT ANGIO CHEST PE PROTOCOL 05/11/2024 10:09 PM FINDINGS: Pulmonary arteries: Normal. No pulmonary emboli. Aorta: Unremarkable. No aortic aneurysm. No aortic dissection. Lungs: Small foci of subsegmental consolidation within the lingula which has decreased in size compared to 05/11/2024. Multiple calcified granulomata. Mild patchy ground-glass opacities bilaterally. Pleural spaces: Unremarkable. No pneumothorax. No pleural effusion. Heart: Mild cardiomegaly. Coronary arteries: Coronary artery calcification versus stents. Lymph nodes: Mild bilateral hilar lymphadenopathy. Bones/joints: Unremarkable. No acute fracture. Soft tissues: Unremarkable. IMPRESSION: 1. Small foci of subsegmental consolidation within the lingula which has decreased in size compared to 05/11/2024. Compatible with resolving chronic pneumonia. 2. Mild bilateral hilar lymphadenopathy. Presumed reactive. 3. No pulmonary embolus. 4. No aortic aneurysm or dissection.
[2024-07-18] MEDS: BUMETANIDE 1MG/4ML VIAL 2 MG IV ×3 (04:15→15:30)
[2024-07-18] MEDS: IOPAMIDOL-370 (76%);100ML BOTTLE 70 ML IV (04:30)
[2024-07-18] MEDS: SODIUM CHLORIDE 0.9% 10ML SYR (RAD ONLY) 10 ML IV (04:30)
[2024-07-18] MEDS: 0.9 % SODIUM CHLORIDE 50 ML VIAL IV (04:30)
--- NOTE | 2024-07-18 04:50 | P.HP_ITS ---
<Statement entered by John Parikh MD - 07/21/24 14:07> I personally examined the patient and agree with the plan of care as outlined by the INSOLVENCY CONSULTANT. History of Present Illness *Admission Date: 07/18/24 *Reason for visit:: shortness of breath *History of present illness: This is a 54-year-old male who is well-known to our service line and has a past medical history significant for noncompliance, severe systolic dysfunction congestive heart failure requiring LifeVest, stage IIIa chronic kidney disease, coronary artery disease, right atrial thrombosis, nodule of the left lung, transaminitis, anasarca, NSTEMI, pleural effusions, vitamin B12 deficiency, BPH, hyperlipidemia, and insomnia who presents with a chief complaint of intermittent left-sided chest pain, shortness of breath, nonproductive cough, and dyspnea with exertion. Due to patient's symptoms, he presented to the emergency room for evaluation. While in the emergency room, patient's BNP was greater than 6000. CTA of the chest revealed a small foci of subsegmental consolidation within the lingula which has decreased in size, mild bilateral healer lymphadenopathy, no aortic aneurysm/dissection, it was negative for pulmonary emboli. Due to patient's hyperkalemia, he was admitted for further management. During my evaluation of the patient, patient states his symptomology started on Tuesday with intermittent nonproductive cough. Over the past 24 to 48 hours, patient has had worsening shortness of breath and left-sided intermittent chest pain. It is worth mentioning, the patient was recently discharged from our facility with a similar chief complaint. He was diuresed and discharged home to continue his oral medications. Patient voices compliance with his home regimen. Patient also has a chief complaint of right foot pain. Currently, patient is denying any ongoing chest pain, PND, orthopnea, lightheadedness, dizziness, fever, chills, rigors, nausea, vomiting or diarrhea. Last 2D echo obtained in March of last year revealed an EF of 20%. Additional pertinent vitals obtained include a red blood cell count of 3.46, hemoglobin of 10.2, hematocrit 31.5, platelet count of 433, D-dimer 1.10, pH is 7.437, pO2 of 62.7, venous lactic acid 2.3, chloride of 97, BUN of 27, creatinine 1.50, GFR 49, blood glucose 136, alkaline phosphate of 296, and BNP of 660., [facility] Disclaimer: The information contained in this section may have been updated after the patient was seen, as this information can be updated by other users. Medical History Medically noncompliant Bilateral edema of lower extremity CKD stage 3a, GFR 45-59 ml/min CAD (coronary artery disease) Acute on chronic HFrEF (heart failure with reduced ejection fraction) Pneumonia Chest pain Pulmonary infiltrate Hyponatremia Bed bug bite CHF (congestive heart failure) Right atrial thrombus Acute decompensated heart failure Fatigue Nodule of left lung Severe left ventricular systolic dysfunction (LVSD) Transaminitis RENAY (acute kidney injury) Anasarca LV (left ventricular) mural thrombus Acute hypoxemic respiratory failure Cardiogenic shock Non-STEMI (non-ST elevated myocardial infarction) Acute HFrEF (heart failure with reduced ejection fraction) Pneumonia Pleural effusion, bilateral Vitamin B12 deficiency Allergic rhinitis BPH (benign prostatic hyperplasia) Hyperlipidemia Insomnia Partial tear of right Achilles tendon Surgical History History of back surgery Family History Other No significant family history Social History (Updated 07/13/24 @ 03:53 by Susy Christy RN) Smoking Status: Current every day smoker tobacco type: smokeless tobacco alcohol intake: never substance use type: former substance user and heroin current occupational status: unemployed Travel in the last 8 weeks: None Other Medical History Have you received the Flu Vaccine for this season: No Have you received the Pneumonia Vaccine: No Review of Systems Review of Systems Review of systems:: pertinent systems reviewed and negative unless documented below Constitutional Constitutional: Reports system reviewed and no additional complaints, except as documented Eyes Eyes: Reports system reviewed and no additional complaints, except as documented ENT Ears, Nose, Mouth, and Throat: Reports system reviewed and no additional complaints, except as documented *Cardiovascular Cardiovascular: Reports chest pain, Reports dyspnea, Reports dyspnea on exertion and Reports edema *Respiratory Respiratory: Reports dyspnea and Reports dyspnea on exertion *Gastrointestinal Gastrointestinal: Reports system reviewed and no additional complaints, except as documented *Genitourinary Genitourinary: Reports system reviewed and no additional complaints, except as documented *Musculoskeletal Comments: Right foot pain Integumentary/Breasts Skin/Breast: Reports skin swelling *Neurologic Neurologic: Reports system reviewed and no additional complaints, except as documented Psychiatric Psychiatric: Reports system reviewed and no additional complaints, except as documented Endocrine Endocrine: Reports system reviewed and no additional complaints, except as documented Hematologic/Lymphatic Hematologic/Lymphatic: Reports system reviewed and no additional complaints, except as documented Allergic/Immunologic Allergic/Immunologic: Reports system reviewed and no additional complaints, except as documented Meds Home Medications and Allergies Home Medications ?Medication ?Instructions ?Recorded ?Confirmed ?Type apixaban 5 mg tablet (Eliquis) 5 mg PO BID 30 days #60 tabs 07/14/24 Rx aspirin 81 mg tablet,delayed 81 mg PO DAILY 30 days #30 tabs 07/14/24 Rx release atorvastatin 80 mg tablet 80 mg PO HS 30 days #30 tabs 07/14/24 Rx bumetanide 2 mg tablet 2 mg PO BID 30 days #60 tabs 07/14/24 Rx clopidogrel 75 mg tablet (Plavix) 75 mg PO DAILY 30 days #30 tabs 07/14/24 Rx metoprolol succinate 50 mg 50 mg PO DAILY 30 days #30 tabs 07/14/24 Rx tablet,extended release 24 hr (Toprol XL) spironolactone 50 mg tablet 50 mg PO DAILY #30 tabs 07/14/24 Rx tamsulosin 0.4 mg capsule 0.4 mg PO HS Urine Flow 30 days 07/14/24 Rx #30 caps New Prescriptions to Start Prescriptions: Allergies Allergy/AdvReac Type Severity Reaction Status Date / Time diclofenac (DICLOFENAC) Allergy Unknown Unknown Verified 07/06/24 22:56 allergy reaction Penicillins (PENICILLINS) Allergy Unknown Hives Verified 07/06/24 22:56 propoxyphene (PROPOXYPHENE) Allergy Unknown Unknown Verified 07/06/24 22:56 allergy reaction tramadol (TRAMADOL) Allergy Unknown Vomiting Verified 07/06/24 22:56 Exam Data for Last 24 hours Vital signs and Labs for Last 24 Hours: Temp Pulse Resp BP Pulse Ox O2 Del Method 98.2 F 110 H 20 131/95 H 100 Room Air 07/18/24 03:19 07/18/24 04:30 07/18/24 04:30 07/18/24 04:30 07/18/24 04:30 07/18/24 04:30 Laboratory Results - last 24 hr 07/18/24 03:23: WBC 9.3, RBC 3.46 L, Hgb 10.2 L, Hct 31.5 L, MCV 91.0, MCH 29.5, MCHC 32.4, RDW 20.7 H, Plt Count 433 H, MPV 9.5, Neut % (Auto) 71.2, Lymph % (Auto) 17.0, Mayes % (Auto) 7.8, Eos % (Auto) 1.7, Baso % (Auto) 1.1, Neut # (Auto) 6.6, Lymph # (Auto) 1.6, Mayes # (Auto) 0.7, Eos # (Auto) 0.2, Baso # (Auto) 0.1, Sodium 136, Potassium 4.2, Chloride 97 L, Carbon Dioxide 27, Anion Gap 16.2 H, BUN 27 H, Creatinine 1.50 H, Estimated Creat Clear 56, Estimated GFR 49 L, Est GFR ( Amer) 59, Glucose 136 H, Calcium 8.8, Total Bilirubin 1.2, AST 48, ALT 44, Alkaline Phosphatase 296 H, Troponin I 0.03, NT-Pro-B Natriuret Pep 6600 H, Total Protein 7.7, Albumin 4.0, Globulin 3.7 H, Album in/Globulin Ratio 1.1 07/18/24 03:24: VBG pH 7.43 H, VBG pCO2 39.8, VBG pO2 62.7 H, VBG HCO3 25.7, VBG Total CO2 26.9, VBG O2 Saturation 91.4 H, VBG Base Excess 1.4, VBG Lactic Acid 2.3 H 07/18/24 03:41: D-Dimer 1.10 H I & O for Last 24 hours: Intake & Output 07/15/24 07/16/24 07/17/24 07/18/24 23:59 23:59 23:59 23:59 Weight 69.853 kg Constitutional Constitutional: no acute distress *Routine HEENT Exam Head: Present normocephalic and atraumatic Eye: Present EOMI, PERRL and normal accommodation ENT: Present mucous membranes moist *Routine Neck Exam Neck: Present supple, full ROM and trachea midline *Routine Respiratory Exam Respiratory: Present wheezes and crackles *Routine Cardiovascular Exam Cardiovascular: Present tachycardia *Routine Abdominal Exam Abdominal: Present soft and normoactive bowel sounds *Routine Rectal Exam Rectal:: deferred *Routine Genitalia Exam Genitalia:: deferred *Routine Extremities Exam Extremities: Present edema, full ROM, pulses intact and normal capillary refill Routine Back/Spine/Pelvis Exam Back/Spine: Present full ROM *Routine Skin Exam Skin: Present intact, dry and warm *Routine Neurological Exam Neurological: Present alert, oriented X3, CN II-XII intact, moving all extremities and normal speech Routine Psychiatric Exam Psychiatric: Present normal affect, normal thought process, cooperative, good insight and good judgment H&P: Result Impressions 54-year-old male who has known severe systolic dysfunction congestive heart failure requires LifeVest and is currently without any presents with hypervolemia and intermittent left-sided chest pain which is worse with cough. On previous admission patient was diuresed 8 L Assessment and Plan *Assessment and plan (1) Acute on chronic HFrEF (heart failure with reduced ejection fraction): Status: Acute Category: Medical Code(s): I50.23 - Acute on chronic systolic (congestive) heart failure (2) Cough: Status: Acute Qualifiers: Cough type: unspecified Qualified Code(s): R05.9 - Cough, unspecified Category: Medical Code(s): R05.9 - Cough, unspecified (3) CKD stage 3a, GFR 45-59 ml/min: Status: Acute Category: Medical Code(s): N18.31 - Chronic kidney disease, stage 3a (4) Right foot pain: Status: Acute Category: Medical Code(s): M79.671 - Pain in right foot Plan Assessment: Acute on chronic systolic dysfunction congestive heart failure: HFrEF -We will use 2 mg of Bumex IV twice daily -Strict intake and output -Daily weight -Once patient is close to euvolemia, we will discharge patient home -We was stressed importance of appliance -Will try to obtain patient's LifeVest -Most 2D echo reveals an EF of 15-20% Elevated D-dimer -CTA of the chest was negative for pulmonary embolism Chronic kidney disease -Patient is currently at baseline creatinine Right foot pain -Patient's right lower extremity is without any erythema or warmth low suspicion for gout flare -Extremity has no obvious deformity -Will obtain 3 views of the right lower extremity Plan: Admit patient to [facility] unit on telemetry Daily weight Saline lock Cardiac diet 1500 mL fluid restriction CBC/BMP daily Will trend patient's troponin 5 mg Lemmon p.o. every 4 hours for moderate pain 4 mg Zofran IV push every 8 hours as needed nausea ROM Full code Discussed this case with attending physician Dr. Parikh and I look forward to more input
--- NOTE | 2024-07-18 05:22 | PC.NURSE ---
Report called to EZEQUIEL Lipscomb
--- NOTE | 2024-07-18 05:33 | PC.NURSE ---
Patient arrived to floor via wheelchair from ED at 05:32.
[2024-07-18] MEDS: HYDROCODONE/APAP 5/325 MG TABLET 1 TAB PO (05:49)
[2024-07-18] MEDS: BENZONATATE 100MG CAPSULE 200 MG PO (05:49)
[2024-07-18 07:06] LABS: Microscopic, Urine URINE MICROSCOPIC (MICROSCOPIC)
[2024-07-18 07:08] LABS: Appearance,Urine CLEAR (Clear); Bilirubin,Urine Negative (Negative); Blood, Urine Negative (Negative); Color,Urine YELLOW (Yellow); Glucose,Urine (UA) Negative (Negative); Ketones,Urine Negative (Negative); Leukocyte Esterase,Urine Negative (Negative); Nitrate,Urine Negative (Negative); Protein,Urine Negative (Negative); Specific Gravity, Urine 1.015 (1.005-1.030); Urobilinogen,Urine 0.2 EU/dl (0.2)
[2024-07-18 07:22] LABS: Squamous Epithelial Cell,Urine Occasional #/hpf (0-5)
[2024-07-18 07:36] LABS: Reflex Lactic Add Lactic Reflex
--- NOTE | 2024-07-18 08:40 | HMH.PHAINT1 ---
Pharmacy Intervention Comments: MEDICATION RECONCILIATION COMPLETED ON PATIENT USING EXTERNAL FILL HISTORY FROM PHARMACY AND DISCHARGE SUMMARY FROM PREVIOUS ADMISSION. -IRMA AYALA, CASSIAD
--- NOTE | 2024-07-18 09:00 | XR_ITS ---
FINAL REPORT CLINICAL HISTORY: right foot pain COMPARISON: None FINDINGS: Three views of the right foot show no evidence of acute displaced fracture or dislocation of the visualized bony architecture. The joint spaces appear normal. IMPRESSION: Unremarkable exam. Reviewed, Interpreted and Dictated by Monse Muir MD Transcribed by Tiana Leger Authenticated and . [facility]
[2024-07-18] MEDS: APIXABAN 5MG TABLET 5 MG PO (09:34)
[2024-07-18] MEDS: CLOPIDOGREL 75MG TAB 75 MG PO (09:34)
[2024-07-18] MEDS: ASPIRIN EC 81MG TABLET 81 MG PO (09:34)
[2024-07-18] MEDS: SPIRONOLACTONE 25MG TABLET 50 MG PO (09:36)
[2024-07-18] MEDS: METOPROLOL SUCCINATE XL 50MG TABLET 50 MG PO (09:36)
[2024-07-18 10:03] LABS: Basophils # 0.1 K/mm3 (0-0.2); Eosinophils # 0.2 K/mm3 (0.0-0.4); Eosinophils % 1.6 % (0.1-12.0); Hematocrit 33.4 % (42.0-52.0); Hemoglobin 10.6 g/dL (14.1-18.0); Lymphocytes # 1.4 K/mm3 (0.7-4.5); Lymphocytes % 15.3 % (10-50); Mean Corpuscular HGB Conc 31.7 g/dL (31.8-35.4); Mean Corpuscular Volume 91.5 fl (80-94); Mean Platelet Volume 9.2 fl (7.4-10.4); Monocytes % 10.5 % (1.7-9.3); Neutrophils # 6.6 K/mm3 (1.8-7.8); Neutrophils % 70.6 % (37.0-80.0); Platelet Count 423 K/mm3 (142-424); Red Blood Count 3.65 M/mm3 (4.60-6.20); Red Cell Distribution Width 20.5 % (11.5-17.5); White Blood Count 9.3 K/mm3 (4.8-10.8)
[2024-07-18 10:11] LABS: Lactic Acid Follow Up (RFLX 1) 1.6 mmol/L (0.7-2.1)
--- NOTE | 2024-07-18 10:13 | CA_ITS ---
FINAL REPORT CLINICAL HISTORY: HF, Hypervolemia FINDINGS: Multiple transverse and longitudinal scans were performed of the femoral popliteal deep venous system, with augmentation and compression maneuvers. Normal phasic flow was noted in the visualized deep venous system. No intraluminal increased echogenicity is noted to suggest thrombus. There is normal compression and augmentation of the venous structures. No abnormal venous collaterals are seen. IMPRESSION: No evidence of deep venous thrombosis of the bilateral lower extremities. Reviewed, Interpreted and Dictated by Monse Muir MD Transcribed by Bhavna Hong Authenticated and [facility]
[2024-07-18 10:30] LABS: Anion Gap 18.3 mEq/L (5-15); Blood Urea Nitrogen 28 mg/dl (9-20); Calcium 9.1 mg/dl (8.4-10.2); Carbon Dioxide 26 mmol/L (22.0-30.0); Chloride 95 mmol/L (98-107); Creatinine Clearance Estimated 57 mL/min (50-200); Estimated Glomerular Filt Rate 45 ml/min (>60); GFR (African American) 55 ML/MIN (>60); Glucose 118 mg/dl (74-100); Potassium 4.3 mmoL/L (3.5-5.1); Sodium 135 mmol/L (136-145)
[2024-07-18] MEDS: LORATADINE 10MG TABLET 10 MG PO (10:43)
[2024-07-18 10:46] LABS: Troponin I 0.03 ng/ml (0.00-0.034)
--- NOTE | 2024-07-18 15:14 | EXP.DC.SUM ---
General Admission date:: 07/18/24 HPI HPI HPI: This is a 54-year-old male who is well-known to our service line and has a past medical history significant for noncompliance, severe systolic dysfunction congestive heart failure requiring LifeVest, stage IIIa chronic kidney disease, coronary artery disease, right atrial thrombosis, nodule of the left lung, transaminitis, anasarca, NSTEMI, pleural effusions, vitamin B12 deficiency, BPH, hyperlipidemia, and insomnia who presents with a chief complaint of intermittent left-sided chest pain, shortness of breath, nonproductive cough, and dyspnea with exertion. Due to patient's symptoms, he presented to the emergency room for evaluation. While in the emergency room, patient's BNP was greater than 6000. CTA of the chest revealed a small foci of subsegmental consolidation within the lingula which has decreased in size, mild bilateral healer lymphadenopathy, no aortic aneurysm/dissection, it was negative for pulmonary emboli. Due to patient's hyperkalemia, he was admitted for further management. During my evaluation of the patient, patient states his symptomology started on Tuesday with intermittent nonproductive cough. Over the past 24 to 48 hours, patient has had worsening shortness of breath and left-sided intermittent chest pain. It is worth mentioning, the patient was recently discharged from our facility with a similar chief complaint. He was diuresed and discharged home to continue his oral medications. Patient voices compliance with his home regimen. Patient also has a chief complaint of right foot pain. Currently, patient is denying any ongoing chest pain, PND, orthopnea, lightheadedness, dizziness, fever, chills, rigors, nausea, vomiting or diarrhea. Last 2D echo obtained in March of last year revealed an EF of 20%. Additional pertinent vitals obtained include a red blood cell count of 3.46, hemoglobin of 10.2, hematocrit 31.5, platelet count of 433, D-dimer 1.10, pH is 7.437, pO2 of 62.7, venous lactic acid 2.3, chloride of 97, BUN of 27, creatinine 1.50, GFR 49, blood glucose 136, alkaline phosphate of 296, and BNP of 660., Hospital Course Hospital Course Hospital Course: Manuel Gonsales is a 53-year-old who presents with nonproductive cough with associated chest pain and was admitted for the same. Of note, patient has a history of medication nonadherence. #HFrEF exacerbation #Chest pain ? Troponins 0.03, EKG without acute ischemic changes. CTA without PE. Low suspicion for ACS. ? Initial BNP 6600, lower extremity edema and tightness. On room air. ? Improved with IV Bumex diuresis. Discharged with Bumex 2 mg daily. Continue metoprolol succinate 25 mg, spironolactone 50 mg. ? Hold rest of GDMT at this time given soft pressure. Advised to follow-up with cardiology within 1 week. ? Lower extremities negative for DVTs. ? Patient has longstanding history of medication nonadherence, though patient states he has been taking his medications. It is unclear if this is true as patient has had recurrent admissions over the past month alone for volume overload but on room air. In future occasions if patient returns to the ED with similar presentation, it may be more prudent to encourage patient to be adherent with his medications that he has already picked up and follow-up with cardiology especially if he is on room air. #CAD s/p 5 stents #CKD stage III - Continue aspirin 81 mg, Plavix 75 mg, atorvastatin 80 mg, metoprolol succinate 25 mg. ? Advised to follow-up with cardiology within 1 week. ? Creatinine 1.6, GFR 45. Stable. #LV thrombus ? Continue Eliquis 5 mg twice daily, though patient has not been adherent due to cost of medication. He has been told on numerous occasions to apply for Medicare but patient has neglected to do so. #BPH ? Continue home tamsulosin. Total time spent on discharge: 31 minutes on chart review, counseling, documentation, and direct care with patient. Exam Data for Last 24 hours Vital signs and Labs for Last 24 Hours: Temp Pulse Resp BP Pulse Ox O2 Del Method 97.5 F L 102 H 14 116/75 99 Room Air 07/18/24 12:00 07/18/24 12:00 07/18/24 12:00 07/18/24 12:00 07/18/24 12:00 07/18/24 15:00 Laboratory Results - last 24 hr 07/18/24 03:23: WBC 9.3, RBC 3.46 L, Hgb 10.2 L, Hct 31.5 L, MCV 91.0, MCH 29.5, MCHC 32.4, RDW 20.7 H, Plt Count 433 H, MPV 9.5, Neut % (Auto) 71.2, Lymph % (Auto) 17.0, [place] % (Auto) 7.8, Eos % (Auto) 1.7, Baso % (Auto) 1.1, Neut # (Auto) 6.6, Lymph # (Auto) 1.6, [place] # (Auto) 0.7, Eos # (Auto) 0.2, Baso # (Auto) 0.1, Sodium 136, Potassium 4.2, Chloride 97 L, Carbon Dioxide 27, Anion Gap 16.2 H, BUN 27 H, Creatinine 1.50 H, Estimated Creat Clear 56, Estimated GFR 49 L, Est GFR ( Amer) 59, Glucose 136 H, Calcium 8.8, Total Bilirubin 1.2, AST 48, ALT 44, Alkaline Phosphatase 296 H, Troponin I 0.03, NT-Pro-B Natriuret Pep 6600 H, Total Protein 7.7, Albumin 4.0, Globulin 3.7 H, Albumin/Globulin Ratio 1.1 07/18/24 03:24: VBG pH 7.43 H, VBG pCO2 39.8, VBG pO2 62.7 H, VBG HCO3 25.7, VBG Total CO2 26.9, VBG O2 Saturation 91.4 H, VBG Base Excess 1.4, VBG Lactic Acid 2.3 H 07/18/24 03:41: D-Dimer 1.10 H 07/18/24 03:53: Chlamy pneumoniae PCR Not detected, Adenovirus (PCR) Not detected, B. pertussis DNA (PCR) Not detected, Coronavirus OC43 (PCR) Not detected, Coronavirus HKU1 (PCR) Not detected, Coronavirus 229E (PCR) Not detected, SARS-CoV-2 (PCR) Not detected, Coronavirus NL63 (PCR) Not detected, Human Metapneumovir PCR Not detected, Influenza A (H1) PCR Not detected, Influ A (H1N1/09) PCR Not detected, Influenza A (H3) PCR Not detected, Influenza Type A (PCR) Not detected, Influenza Type B (PCR) Not detected, M. pneumoniae (PCR) Not detected, Parainfluenza 1 (PCR) Not detected, Parainfluenza 2 (PCR) Not detected, Parainfluenza 3 (PCR) Not detected, Parainfluenza 4 (PCR) Not detected, RSV (PCR) Not detected, Entero/Rhino (PCR) Not detected 07/18/24 07:02: Urine Color Yellow, Urine Appearance Clear, Urine pH 6.0, Ur Specific [place] 1.015, Urine Protein Negative, Urine Glucose (UA) Negative, Urine Ketones Negative, Urine Blood Negative, Urine Nitrate Negative, Urine Bilirubin Negative, Urine Urobilinogen 0.2, Ur Leukocyte Esterase Negative, Urine RBC None, Urine WBC None, Ur Squamous Epith Cells Occasional 07/18/24 09:54: WBC 9.3, RBC 3.65 L, Hgb 10.6 L, Hct 33.4 L, MCV 91.5, MCH 29.0, MCHC 31.7 L, RDW 20.5 H, Plt Count 423, MPV 9.2, Neut % (Auto) 70.6, Lymph % (Auto) 15.3, Menard % (Auto) 10.5 H, Eos % (Auto) 1.6, Baso % (Auto) 1.0, Neut # (Auto) 6.6, Lymph # (Auto) 1.4, Menard # (Auto) 1.0, Eos # (Auto) 0.2, Baso # (Auto) 0.1, Sodium 135 L, Potassium 4.3, Chloride 95 L, Carbon Dioxide 26, Anion Gap 18.3 H, BUN 28 H, Creatinine 1.60 H, Estimated Creat Clear 57, Estimated GFR 45 L, Est GFR ( Amer) 55 L, Glucose 118 H, Lactate 1.6, Calcium 9.1, Troponin I 0.03 I & O for Last 24 hours: Intake & Output 07/15/24 07/16/24 07/17/24 07/18/24 23:59 23:59 23:59 23:59 Intake Total 510 / 510 Output Total 550 / 550 Balance -40 / -40 Weight 76.385 kg Constitutional Constitutional: no acute distress, thin, chronically ill appearing and cooperative *Routine HEENT Exam Head: Present normocephalic Eye: Present EOMI and PERRL ENT: Present mucous membranes moist *Routine Neck Exam Neck: Present supple; Absent lymphadenopathy *Routine Respiratory Exam Respiratory: Present CTA bilaterally; Absent rhonchi, wheezes or crackles *Routine Cardiovascular Exam Cardiovascular: Present tachycardia Comments: Regular rhythm, tachycardic ~100 *Routine Abdominal Exam Abdominal: Present soft and normoactive bowel sounds; Absent tenderness *Routine Rectal Exam Patient deferred: visual exam *Routine Exam Patient deferred: penile exam *Routine Extremities Exam Extremities: Present edema (Trace bilateral lower extremity to knees); Absent cyanosis or clubbing *Routine Skin Exam Skin: Present intact and warm; Absent rash *Routine Neurological Exam Neurological: Present alert, oriented X3 and moving all extremities; Absent altered mental status Routine Psychiatric Exam Psychiatric: Present normal affect; Absent good insight or good judgment Results Data Completed and Pending Labs on day of discharge: Labs from last 24 hours 07/18/24 07/18/24 07/18/24 09:54 07:02 03:53 WBC 9.3 RBC 3.65 L Hgb 10.6 L Hct 33.4 L MCV 91.5 MCH 29.0 MCHC 31.7 L RDW 20.5 H Plt Count 423 MPV 9.2 Neut % (Auto) 70.6 Lymph % (Auto) 15.3 [place] % (Auto) 10.5 H Eos % (Auto) 1.6 Baso % (Auto) 1.0 Neut # (Auto) 6.6 Lymph # (Auto) 1.4 Menard # (Auto) 1.0 Eos # (Auto) 0.2 Baso # (Auto) 0.1 D-Dimer VBG pH VBG pCO2 VBG pO2 VBG HCO3 VBG Total CO2 VBG O2 Saturation VBG Base Excess VBG Lactic Acid Sodium 135 L Potassium 4.3 Chloride 95 L Carbon Dioxide 26 Anion Gap 18.3 H BUN 28 H Creatinine 1.60 H Estimated Creat Clear 57 Estimated GFR 45 L Est GFR ( Amer) 55 L Glucose 118 H Lactate 1.6 Calcium 9.1 Total Bilirubin AST ALT Alkaline Phosphatase Troponin I 0.03 NT-Pro-B Natriuret Pep Total Protein Albumin Globulin Albumin/Globulin Ratio Urine Color Yellow Urine Appearance Clear Urine pH 6.0 Ur Specific [place] 1.015 Urine Protein Negative Urine Glucose (UA) Negative Urine Ketones Negative Urine Blood Negative Urine Nitrate Negative Urine Bilirubin Negative Urine Urobilinogen 0.2 Ur Leukocyte Esterase Negative Urine RBC None Urine WBC None Ur Squamous Epith Cells Occasional Chlamy pneumoniae PCR Not detected Adenovirus (PCR) Not detected B. pertussis DNA (PCR) Not detected Coronavirus OC43 (PCR) Not detected Coronavirus HKU1 (PCR) Not detected Coronavirus 229E (PCR) Not detected SARS-CoV-2 (PCR) Not detected Coronavirus NL63 (PCR) Not detected Human Metapneumovir PCR Not detected Influenza A (H1) PCR Not detected Influ A (H1N1/09) PCR Not detected Influenza A (H3) PCR Not detected Influenza Type A (PCR) Not detected Influenza Type B (PCR) Not detected M. pneumoniae (PCR) Not detected Parainfluenza 1 (PCR) Not detected Parainfluenza 2 (PCR) Not detected Parainfluenza 3 (PCR) Not detected Parainfluenza 4 (PCR) Not detected RSV (PCR) Not detected Entero/Rhino (PCR) Not detected 07/18/24 07/18/24 07/18/24 03:41 03:24 03:23 WBC 9.3 RBC 3.46 L Hgb 10.2 L Hct 31.5 L MCV 91.0 MCH 29.5 MCHC 32.4 RDW 20.7 H Plt Count 433 H MPV 9.5 Neut % (Auto) 71.2 Lymph % (Auto) 17.0 Menard % (Auto) 7.8 Eos % (Auto) 1.7 Baso % (Auto) 1.1 Neut # (Auto) 6.6 Lymph # (Auto) 1.6 Menard # (Auto) 0.7 Eos # (Auto) 0.2 Baso # (Auto) 0.1 D-Dimer 1.10 H VBG pH 7.43 H VBG pCO2 39.8 VBG pO2 62.7 H VBG HCO3 25.7 VBG Total CO2 26.9 VBG O2 Saturation 91.4 H VBG Base Excess 1.4 VBG Lactic Acid 2.3 H Sodium 136 Potassium 4.2 Chloride 97 L Carbon Dioxide 27 Anion Gap 16.2 H BUN 27 H Creatinine 1.50 H Estimated Creat Clear 56 Estimated GFR 49 L Est GFR ( Amer) 59 Glucose 136 H Lactate Calcium 8.8 Total Bilirubin 1.2 AST 48 ALT 44 Alkaline Phosphatase 296 H Troponin I 0.03 NT-Pro-B Natriuret Pep 6600 H Total Protein 7.7 Albumin 4.0 Globulin 3.7 H Albumin/Globulin Ratio 1.1 Urine Color Urine Appearance Urine pH Ur Specific [place] Urine Protein Urine Glucose (UA) Urine Ketones Urine Blood Urine Nitrate Urine Bilirubin Urine Urobilinogen Ur Leukocyte Esterase Urine RBC Urine WBC Ur Squamous Epith Cells Chlamy pneumoniae PCR Adenovirus (PCR) B. pertussis DNA (PCR) Coronavirus OC43 (PCR) Coronavirus HKU1 (PCR) Coronavirus 229E (PCR) SARS-CoV-2 (PCR) Coronavirus NL63 (PCR) Human Metapneumovir PCR Influenza A (H1) PCR Influ A (H1N1/) PCR Influenza A (H3) PCR Influenza Type A (PCR) Influenza Type B (PCR) M. pneumoniae (PCR) Parainfluenza 1 (PCR) Parainfluenza 2 (PCR) Parainfluenza 3 (PCR) Parainfluenza 4 (PCR) RSV (PCR) Entero/Rhino (PCR) DS: Diagnosis Discharge Diagnosis (1) Acute on chronic HFrEF (heart failure with reduced ejection fraction): Status: Acute Code(s): I50.23 - Acute on chronic systolic (congestive) heart failure (2) Cough: Status: Acute Code(s): R05.9 - Cough, unspecified Qualifiers: Cough type: unspecified Qualified Code(s): R05.9 - Cough, unspecified (3) CKD stage 3a, GFR 45-59 ml/min: Status: Acute Code(s): N18.31 - Chronic kidney disease, stage 3a (4) Right foot pain: Status: Acute Code(s): M79.671 - Pain in right foot Meds Home Medications and Allergies Home Medications ?Medication ?Instructions ?Recorded ?Confirmed ?Type apixaban 5 mg tablet (Eliquis) 5 mg PO BID 30 days #60 tabs 07/14/24 07/18/24 Rx aspirin 81 mg tablet,delayed 81 mg PO DAILY 30 days #30 tabs 07/14/24 07/18/24 Rx release atorvastatin 80 mg tablet 80 mg PO HS 30 days #30 tabs 07/14/24 07/18/24 Rx bumetanide 2 mg tablet 2 mg PO BID 30 days #60 tabs 07/14/24 07/18/24 Rx clopidogrel 75 mg tablet (Plavix) 75 mg PO DAILY 30 days #30 tabs 07/14/24 07/18/24 Rx metoprolol succinate 50 mg 50 mg PO DAILY 30 days #30 tabs 07/14/24 07/18/24 Rx tablet,extended release 24 hr (Toprol XL) spironolactone 50 mg tablet 50 mg PO DAILY #30 tabs 07/14/24 07/18/24 Rx tamsulosin 0.4 mg capsule 0.4 mg PO HS Urine Flow 30 days 07/14/24 07/18/24 Rx #30 caps New Prescriptions to Start Prescriptions: Allergies Allergy/AdvReac Type Severity Reaction Status Date / Time diclofenac (DICLOFENAC) Allergy Unknown Unknown Verified 07/06/24 22:56 allergy reaction Penicillins (PENICILLINS) Allergy Unknown Hives Verified 07/06/24 22:56 propoxyphene (PROPOXYPHENE) Allergy Unknown Unknown Verified 07/06/24 22:56 allergy reaction tramadol (TRAMADOL) Allergy Unknown Vomiting Verified 07/06/24 22:56 Discharge Plan Disposition Patient Disposition: Home, Self-Care Condition: Fair Follow up Plan Follow up with: Luis E Oscar APRN [Nurse Practitioner] - 07/25/24 10:40 am Lux Casey PA [Physician Film Touch Up Inspector] - 07/23/24 Prescriptions/Medication Reconciliation: Continued spironolactone 50 mg tablet 50 mg PO DAILY Qty: 30 0RF atorvastatin 80 mg Tablet 80 mg PO HS 30 Days Qty: 30 0RF bumetanide 2 mg tablet 2 mg PO BID 30 Days Qty: 60 0RF metoprolol succinate [Toprol XL] 50 mg Tablet Extended Release 24 Hr 50 mg PO DAILY 30 Days Qty: 30 0RF clopidogrel [Plavix] 75 mg Tablet 75 mg PO DAILY 30 Days Qty: 30 0RF aspirin 81 mg Tablet,Delayed Release (Dr/Ec) 81 mg PO DAILY 30 Days Qty: 30 0RF tamsulosin 0.4 mg Capsule 0.4 mg PO HS 30 Days Qty: 30 0RF Eliquis 5 mg Tablet 5 mg PO BID 30 Days Qty: 60 0RF Problem Reconciliation Problems Reviewed?: Yes Patient Discharge Instructions Patient Instructions: Heart Failure Print Language: [place] Providers Primary Care Provider: Provider,Referral Admit Provider: John Parikh Attending Provider: John Parikh
--- OUTSIDE RECORDS SUMMARY | 2024-07-19 21:41 | XMS_ITS ---
Author Organization Unknown [facility] Start Date Provider Encounter for Check-up [id number] [facility]
--- NOTE | 2024-07-20 10:49 | CARE MANAGER ---
Phoned patient x2. Was unable to leave messages due to patients mailbox full. Rahel Harris
== END 2024-07-18 16:37 | disposition home or self-care (01) ==
LOC: ER 04:30 → 2ND 04:33
PROVIDERS: Nurse Practitioner Family; Admitting Provider Student in an Organized Health Care Education/Training Program; Emergency Provider Emergency Medicine; Visit Provider Student in an Organized Health Care Education/Training Program
DX: I50.23 Acute on chronic systolic (congestive) heart failure (principal); I25.10 Atherosclerotic heart disease of native coronary artery without angina pectoris; Z95.5 Presence of coronary angioplasty implant and graft; I24.0 Acute coronary thrombosis not resulting in myocardial infarction; N40.0 Benign prostatic hyperplasia without lower urinary tract symptoms; N18.31 Chronic kidney disease, stage 3a; I25.2 Old myocardial infarction; E78.5 Hyperlipidemia, unspecified; R05.9 Cough, unspecified; M79.671 Pain in right foot; F17.290 Nicotine dependence, other tobacco product, uncomplicated; Z79.82 Long term (current) use of aspirin; Z79.01 Long term (current) use of anticoagulants; Z79.899 Other long term (current) drug therapy; Z91.199 Patient's noncompliance with other medical treatment and regimen due to unspecified reason
CPT/HCPCS: 96374; 36415; 71275; 73630; 80048; 80053; 81001; 82803; 83605; 83880; 84484; 85025; 85378; 87633; 93005; 93970; 99285; G0378; J1939; Q9967

== ENCOUNTER 2024-08-06 15:17 | Observation (INO) | payer MEDICARE, MEDICAID, SELFPAY ==
[2024-08-06] VITALS (14 sets, daily range): BP systolic 106–123; BP diastolic 69–88; PULSE 80–97; RESP 11–26; TEMP 36.7–36.8; O2SAT 89–100; BMI 26.6; BMI 23.7
--- NOTE | 2024-08-06 15:20 | ECG_ITS ---
APPROVED REPORT Exam: Resting ECG HR:99 bpm ECG Measurements Heart Rate 99 AXES AR 181 P 68 QRSd 102 QRS -35 QT 382 T 98 QTc 438 Conclusion SINUS RHYTHM LEFT AXIS DEVIATION [QRS AXIS < -30] Electronically signed by : Kris Manuel, 08/06/2024 20:47:12
--- NOTE | 2024-08-06 15:22 | ED_ITS ---
Discharge Plan Disposition Patient Disposition: Admitted Condition: Good Clinical Impressions Clinical Impression: Acute exacerbation of chronic heart failure, Homelessness Discharge ED Provider: Kris Manuel HPI <ANNIE Saavedra - Last Filed: 08/06/24 20:15> General Chief Complaint: Chest Pain Stated Complaint: chest pain Time Seen by Provider: 08/06/24 15:22 History of Present Illness HPI narrative: Patient presents initially for evaluation of chest pain. Patient has a longstanding history of severe left ventricular systolic dysfunction with reduced ejection fraction heart failure, chronic kidney disease stage IIIa, coronary artery disease, a long history of medical noncompliance, patient is currently without permanent residence which complicates all aspects of care, with ongoing smoking. He gives a 24-hour history of increasing dyspnea and abdominal bloating and reports chest wall pain. He denies any fever chills hemoptysis hematochezia melena nausea vomiting or diarrhea. Inquired whether the patient is following a heart healthy diet and he did not know what I was talking about but stated that he was following all the medication regimens that he is supposed to. I asked the patient if he knew what his usual dry weight was and he was not sure. He does not weigh himself regularly as I have no way to do it . Related Data Previous Rx's ?Medication ?Instructions ?Recorded apixaban 5 mg tablet (Eliquis) 5 mg PO BID 30 days #60 tabs 07/14/24 atorvastatin 80 mg tablet 80 mg PO HS 30 days #30 tabs 07/14/24 clopidogrel 75 mg tablet (Plavix) 75 mg PO DAILY 30 days #30 tabs 07/14/24 metoprolol succinate 50 mg 50 mg PO DAILY 30 days #30 tabs 07/14/24 tablet,extended release 24 hr (Toprol XL) tamsulosin 0.4 mg capsule 0.4 mg PO HS Urine Flow 30 days 07/14/24 #30 caps spironolactone 50 mg tablet 50 mg PO BID #60 tabs 07/25/24 bumetanide 2 mg tablet 3 mg (1.5 x 2 mg) PO BID #90 tabs 07/26/24 Allergies Allergy/AdvReac Type Severity Reaction Status Date / Time diclofenac (DICLOFENAC) Allergy Unknown Unknown Verified 07/25/24 10:33 allergy reaction Penicillins (PENICILLINS) Allergy Unknown Hives Verified 07/25/24 10:33 propoxyphene (PROPOXYPHENE) Allergy Unknown Unknown Verified 07/25/24 10:33 allergy reaction tramadol (TRAMADOL) Allergy Unknown Vomiting Verified 07/25/24 10:33 [facility] <ANNIE Saavedra - Last Filed: 08/06/24 20:15> [facility] Disclaimer: The information contained in this section may have been updated after the patient was seen, as this information can be updated by other users. Medical History Right foot pain Breath shortness Cough Fluid overload Heart failure Volume overload Hypokalemia Fluid overload Medically noncompliant Bilateral edema of lower extremity CKD stage 3a, GFR 45-59 ml/min CAD (coronary artery disease) Acute on chronic HFrEF (heart failure with reduced ejection fraction) Pneumonia Chest pain Pulmonary infiltrate Hyponatremia Bed bug bite CHF (congestive heart failure) Right atrial thrombus Acute decompensated heart failure Fatigue Nodule of left lung Severe left ventricular systolic dysfunction (LVSD) Transaminitis RENAY (acute kidney injury) Anasarca LV (left ventricular) mural thrombus Acute hypoxemic respiratory failure Cardiogenic shock Non-STEMI (non-ST elevated myocardial infarction) Acute HFrEF (heart failure with reduced ejection fraction) Pneumonia Pleural effusion, bilateral Vitamin B12 deficiency Allergic rhinitis BPH (benign prostatic hyperplasia) Hyperlipidemia Insomnia Partial tear of right Achilles tendon Surgical History History of back surgery Family History Other No significant family history Social History Smoking Status: Never smoker alcohol intake: never substance use type: former substance user and heroin current occupational status: unemployed Travel in the last 8 weeks?: None Have you lived/traveled outside [place] in past 30 days?: No Contact w/someone who lives/traveled outside US past 30 days?: No Exposure to someone with infectious disease in past 14 days?: No Do you have a fever (greater than 100.4 F or 38 C)?: No Have you tested positive for COVID-19?: No Exposed to someone with COVID-19 in past 14 days?: No Do you have a sore throat?: No Do you have a cough?: No Do you have any weakness?: No Do you have any diarrhea?: No Are you experiencing any unusual bleeding?: No Do you have any muscle aches/pain?: No Do you have any abdominal pain?: No Are you experiencing loss of taste or smell?: No Other Medical History Have you received the Flu Vaccine for this season: No Have you received the Pneumonia Vaccine: No <ANNIE Saavedra - Last Filed: 08/06/24 20:15> ROS Obtained: Yes Systems reviewed as appropriate & no additional complaints except as documented Physical Exam <ANNIE Saavedra - Last Filed: 08/06/24 20:15> General General appearance: alert and in no apparent distress Respiratory Respiratory exam: Present normal lung sounds bilaterally; Absent respiratory distress, wheezes or accessory muscle use Cardiovascular Cardiovascular exam: Present regular rate and normal rhythm Neurological Exam Neurological exam: Present alert, oriented X3 and CN II-XII intact HEART Score <ANNIE Saavedra - Last Filed: 08/06/24 20:15> HEART Score HEART Score assessment performed?: Yes History (anamnesis): Slightly suspicious ECG: Non-specific disturbance Age: 45-65 years Risk factors: Atherosclerosis history Troponin: </= normal limit HEART Score: 4 <Kris Manuel MD - Last Filed: 08/06/24 20:22> HEART Score HEART Score: 4 Procedures <Kris Manuel MD - Last Filed: 08/06/24 20:22> Miscellaneous Procedure Procedure Performed: Cardiac US Limited Cardiac Ultrasound Indication: Shortness of breath Identified cardiac views: -Cardiac parasternal long axis -Cardiac parasternal short axis -Cardiac apical four-chamber Findings: Grossly diminished left ventricular and right ventricular function. TAPSE of 15. Impression: - From above Images were saved to permanent archive The study was technically adequate CPT: 45610 This study was performed by me, and I personally interpreted all images/videos. Based on my clinical judgement, these images were adequate and did not necessitate further imaging. Critical Care <ANNIE Saavedra - Last Filed: 08/06/24 20:15> Critical Care Time Critical Care Time: Yes Attestation: On 08/06/24, the high probability of a clinically significant, sudden or life threatening deterioration of the following system(s) required my full and direct attention, intervention and personal management. The time I documented below is in addition to time spent performing reported procedures but includes the following listed in this critical care notation. Total Time Total Critical Care Time: 60 Medical Decision Making <ANNIE Saavedra - Last Filed: 08/06/24 20:15> Medical Records Medical records reviewed: Yes I reviewed the patient's medical records. Matty Inquiry Pt receiving controlled substance: No Vital Signs Vital Signs: 08/06/24 15:23 08/06/24 15:29 08/06/24 15:30 Temperature 98.2 F Temperature Source Oral Pulse Rate 87 97 H Pulse Rate [Left Radial] 87 Respiratory Rate 20 11 L Blood Pressure 116/73 Blood Pressure [Right Arm] 107/81 L Blood Pressure Mean Blood Pressure Mean [Right Arm] 89 02 Sat by Pulse Oximetry 99 98 Oxygen Delivery Method Room Air 08/06/24 16:30 08/06/24 17:00 08/06/24 17:30 Temperature Temperature Source Pulse Rate 95 H 95 H 93 H Pulse Rate [Left Radial] Respiratory Rate 14 11 L 26 H Blood Pressure 106/77 L 113/88 118/80 Blood Pressure [Right Arm] Blood Pressure Mean 83 95 86 Blood Pressure Mean [Right Arm] 02 Sat by Pulse Oximetry 91 L 98 100 Oxygen Delivery Method 08/06/24 18:00 08/06/24 18:30 08/06/24 18:45 Temperature Temperature Source Pulse Rate 93 H 92 H 94 H Pulse Rate [Left Radial] Respiratory Rate Blood Pressure 115/86 112/80 Blood Pressure [Right Arm] Blood Pressure Mean Blood Pressure Mean [Right Arm] 02 Sat by Pulse Oximetry 99 96 89 L Oxygen Delivery Method Room Air Room Air 08/06/24 19:00 08/06/24 19:15 08/06/24 19:30 Temperature Temperature Source Pulse Rate 91 H 92 H 80 Pulse Rate [Left Radial] Respiratory Rate Blood Pressure 112/80 123/69 Blood Pressure [Right Arm] Blood Pressure Mean Blood Pressure Mean [Right Arm] 02 Sat by Pulse Oximetry 98 97 97 Oxygen Delivery Method Lab Data Lab results reviewed: Yes I reviewed the patient's lab results. Labs: Lab Results 08/06/24 15:15: WBC 9.1, RBC 3.66 L, Hgb 10.7 L, Hct 32.4 L, MCV 88.5, MCH 29.2, MCHC 33.0, RDW 18.6 H, Plt Count 428 H, MPV 9.9, Neut % (Auto) 69.9, Lymph % (Auto) 16.1, [place] % (Auto) 12.0 H, Eos % (Auto) 1.2, Baso % (Auto) 0.5, Neut # (Auto) 6.4, Lymph # (Auto) 1.5, [place] # (Auto) 1.1 H, Eos # (Auto) 0.1, Baso # (Auto) 0.1, Sodium 137, Potassium 3.6, Chloride 104, Carbon Dioxide 18 L, Anion Gap 18.6 H, BUN 38 H, Creatinine 1.80 H, Estimated Creat Clear 53, Estimated GFR 40 L, Est GFR ( Amer) 48 L, Glucose 146 H, Calcium 9.2, Magnesium 2.0, T otal Bilirubin 2.5 H, AST 57, ALT 45, Alkaline Phosphatase 130 H, Troponin I 0.03, NT-Pro-B Natriuret Pep 6020 H, Total Protein 7.5, Albumin 4.3, Globulin 3.2, Albumin/Globulin Ratio 1.3, Lipase 81, Procalcitonin 0.115 08/06/24 16:34: Urine Color Yellow, Urine Appearance Clear, Urine pH 5.5, Ur Specific [place] 1.010, Urine Protein Negative, Urine Glucose (UA) Negative, Urine Ketones Negative, Urine Blood Negative, Urine Nitrate Negative, Urine Bilirubin Negative, Urine Urobilinogen 0.2, Ur Leukocyte Esterase Negative, Urine RBC None, Urine WBC Occasional, Ur Squamous Epith Cells Occasional, Urine Bacteria None 08/06/24 15:15 08/06/24 15:15 Response Orders (Tests/Meds): ED MEDICATIONS Generic Name Dose Route Start Last Admin Trade Name Freq PRN Reason Stop Dose Admin Acetaminophen 650 mg 08/06/24 20:04 Acetaminophen 325mg Tab PO 09/05/24 20:03 Q4HP PRN Fever or Mild Pain (1-3) Enoxaparin Sodium 40 mg 08/07/24 09:00 Enoxaparin 40mg/0.4ml Syringe SUBCUT 09/06/24 08:59 DAILY NOVA Ondansetron HCl 4 mg 08/06/24 20:04 Ondansetron 4mg/2ml Vial IV 09/05/24 20:03 Q6HP PRN Nausea Discontinued Medications Generic Name Dose Route Start Last Admin Trade Name Freq PRN Reason Stop Dose Admin Albuterol/Ipratropium 6 ml 08/06/24 19:31 Ipratropium/Albuterol 3 Ml Neb IH 08/06/24 19:32 ONCE ONE Furosemide 80 mg 08/06/24 16:51 08/06/24 16:54 Furosemide 40mg/4ml Vial IV 08/06/24 16:52 80 mg ONCE ONE Administration Iopamidol 80 ml 08/06/24 15:57 08/06/24 15:58 Iopamidol-370 (76%);100ml Bottle IV 08/06/24 15:58 80 ml ONCE ONE Administration Sodium Chloride 10 ml 08/06/24 15:57 08/06/24 15:58 Sodium Chloride 0.9% 10ml Syr (Rad Only) IV 08/06/24 15:58 10 ml ONCE ONE Administration Sodium Chloride 50 ml 08/06/24 15:57 08/06/24 15:58 0.9 % Sodium Chloride 50 Ml Vial IV 08/06/24 15:58 50 ml ONCE ONE Administration ORDERS Category Date Time Status CT abdomen pelvis w con Stat Cat Scan 08/06/24 15:[address] angio chest - dissection Stat Cat Scan 08/06/24 15:22 Completed POCUS Point of Care (ER Only) Stat Exams 08/06/24 15:28 Completed BNP [NT Pro Brain Natriuretic Pep.] Stat Lab 08/06/24 15:15 Completed CBC w/Auto Diff [Complete Blood Count Auto Diff] Stat Lab 08/06/24 15:15 Completed CMP [Comprehensive Metabolic Panel] Stat Lab 08/06/24 15:15 Completed Lipase Stat Lab 08/06/24 15:15 Completed Magnesium Stat Lab 08/06/24 15:15 Completed Procalcitonin Stat Lab 08/06/24 15:15 Completed Trop I [Troponin I] Stat Lab 08/06/24 15:15 Completed UA [Urinalysis and Microscopic] Stat Lab 08/06/24 16:34 Completed MDM Narrative Medical Decision Narrative: In summary patient is a 54-year-old male who presents to the emergency department for evaluation of dyspnea and chest wall pain. Patient is hemodynamically stable with a blood pressure 107/81 pulse 87 with normal sinus rhythm on the bedside monitor breathing 20 times a minute satting at 99% on room air upon arrival, afebrile at 98.2. Physical exam is remarkable for clear breath sounds to the bases without adventitious sounds or increased work of breathing. Patient does have reproducible chest wall pain bilaterally primarily in the lower anterior bilateral chest. Patient has a very distended abdomen but it is soft without rebound or guarding or rigidity. Bowel sounds normal active. Patient has no dependent edema noted. He moves all 4 extremities.. Differential diagnosis includes ACS versus PE versus ascites versus congestive hepatopathy versus anasarca versus abdominal compartment syndrome versus pneumonia versus COPD exacerbation etc. Initial workup will be conducted with hematologic labs urinalysis twelve-lead EKG CT PE protocol CT abdomen pelvis with contrast POCUS. Initial interventions were considered however given the patient has both CHF and reported allergy to diclofenac for now initial interventions deferred until URIBE complete. Initial workup reviewed by me shows that his white count is 9.1 hemoglobin hematocrit 10.7 and 32.4 respectively with an absolute neutrophil count of 6.4, chemistries are significant for CO2 of 18 anion gap of 18 BUN of 38 creatinine 1.8 GFR 40 glucose 146 magnesium is 2 total bilirubin is 2.5 AST is 57 ALT is 45 alk phos 130 initial troponin is 0.03 NT proBNP is 6020 lipase is 81 procalcitonin 0.115 urinalysis is bland and my informal interpretation of his CTA PE protocol and CT abdomen pelvis prior to radiology read shows that the patient has diffuse anasarca small volume ascites likely congestive hepatopathy, he has a 3 x 4 cm focal consolidation of left upper lobe that has been present via my informal interpretation and review of previous imaging since at least April of this year, no evidence of pulmonary emboli. Please see formal radiology read for final interpretation. Given this I ordered 80 mg of Lasix as he is significantly volume overloaded. Upon repeat evaluation patient continues to not have an oxygen requirement has diuresed 2 L so far.. Given this had interactive discussion with hospital medicine regarding patient presentation URIBE and management and hospital came to interview the patient. Initially the hospitalist who is very familiar with the patient felt that he did not have a serious as decompensation as he has had in the past and felt he was stable for discharge. Initially the plan was to discharge the patient and have him follow-up closely with cardiology. However patient is homeless essentially and has no place to live. His son was contacted who wanted to have him directly placed in a nursing facility. Upon being notified that he was being discharged home patient stated that he felt no better than when he got here and will be back by midnight and also all you . He did not say this to me but to the nursing staff. Given that we had an interactive discussion with hospital medicine again who came to reinterviewed the patient. Hospital medicine is gone ahead and admitted him for further evaluation and care primarily for case management and placement evaluation. <Kris Manuel MD - Last Filed: 08/06/24 20:22> Vital Signs Vital Signs: 08/06/24 15:23 08/06/24 15:29 08/06/24 15:30 Temperature 98.2 F Temperature Source Oral Pulse Rate 87 97 H Pulse Rate [Left Radial] 87 Respiratory Rate 20 11 L Blood Pressure 116/73 Blood Pressure [Right Arm] 107/81 L Blood Pressure Mean Blood Pressure Mean [Right Arm] 89 02 Sat by Pulse Oximetry 99 98 Oxygen Delivery Method Room Air 08/06/24 16:30 08/06/24 17:00 08/06/24 17:30 Temperature Temperature Source Pulse Rate 95 H 95 H 93 H Pulse Rate [Left Radial] Respiratory Rate 14 11 L 26 H Blood Pressure 106/77 L 113/88 118/80 Blood Pressure [Right Arm] Blood Pressure Mean 83 95 86 Blood Pressure Mean [Right Arm] 02 Sat by Pulse Oximetry 91 L 98 100 Oxygen Delivery Method 08/06/24 18:00 08/06/24 18:30 08/06/24 18:45 Temperature Temperature Source Pulse Rate 93 H 92 H 94 H Pulse Rate [Left Radial] Respiratory Rate Blood Pressure 115/86 112/80 Blood Pressure [Right Arm] Blood Pressure Mean Blood Pressure Mean [Right Arm] 02 Sat by Pulse Oximetry 99 96 89 L Oxygen Delivery Method Room Air Room Air 08/06/24 19:00 08/06/24 19:15 08/06/24 19:30 Temperature Temperature Source Pulse Rate 91 H 92 H 80 Pulse Rate [Left Radial] Respiratory Rate Blood Pressure 112/80 123/69 Blood Pressure [Right Arm] Blood Pressure Mean Blood Pressure Mean [Right Arm] 02 Sat by Pulse Oximetry 98 97 97 Oxygen Delivery Method Lab Data Labs: Lab Results 08/06/24 15:15: WBC 9.1, RBC 3.66 L, Hgb 10.7 L, Hct 32.4 L, MCV 88.5, MCH 29.2, MCHC 33.0, RDW 18.6 H, Plt Count 428 H, MPV 9.9, Neut % (Auto) 69.9, Lymph % (Auto) 16.1, [place] % (Auto) 12.0 H, Eos % (Auto) 1.2, Baso % (Auto) 0.5, Neut # (Auto) 6.4, Lymph # (Auto) 1.5, [place] # (Auto) 1.1 H, Eos # (Auto) 0.1, Baso # (Auto) 0.1, Sodium 137, Potassium 3.6, Chloride 104, Carbon Dioxide 18 L, Anion Gap 18.6 H, BUN 38 H, Creatinine 1.80 H, Estimated Creat Clear 53, Estimated GFR 40 L, Est GFR ( Amer) 48 L, Glucose 146 H, Calcium 9.2, Magnesium 2.0, T otal Bilirubin 2.5 H, AST 57, ALT 45, Alkaline Phosphatase 130 H, Troponin I 0.03, NT-Pro-B Natriuret Pep 6020 H, Total Protein 7.5, Albumin 4.3, Globulin 3.2, Albumin/Globulin Ratio 1.3, Lipase 81, Procalcitonin 0.115 08/06/24 16:34: Urine Color Yellow, Urine Appearance Clear, Urine pH 5.5, Ur Specific [place] 1.010, Urine Protein Negative, Urine Glucose (UA) Negative, Urine Ketones Negative, Urine Blood Negative, Urine Nitrate Negative, Urine Bilirubin Negative, Urine Urobilinogen 0.2, Ur Leukocyte Esterase Negative, Urine RBC None, Urine WBC Occasional, Ur Squamous Epith Cells Occasional, Urine Bacteria None Response Orders (Tests/Meds): ED MEDICATIONS Generic Name Dose Route Start Last Admin Trade Name Freq PRN Reason Stop Dose Admin Acetaminophen 650 mg 08/06/24 20:04 Acetaminophen 325mg Tab PO 09/05/24 20:03 Q4HP PRN Fever or Mild Pain (1-3) Enoxaparin Sodium 40 mg 08/07/24 09:00 Enoxaparin 40mg/0.4ml Syringe SUBCUT 09/06/24 08:59 DAILY NOVA Ondansetron HCl 4 mg 08/06/24 20:04 Ondansetron 4mg/2ml Vial IV 09/05/24 20:03 Q6HP PRN Nausea Discontinued Medications Generic Name Dose Route Start Last Admin Trade Name Freq PRN Reason Stop Dose Admin Albuterol/Ipratropium 6 ml 08/06/24 19:31 Ipratropium/Albuterol 3 Ml Neb IH 08/06/24 19:32 ONCE ONE Furosemide 80 mg 08/06/24 16:51 08/06/24 16:54 Furosemide 40mg/4ml Vial IV 08/06/24 16:52 80 mg ONCE ONE Administration Iopamidol 80 ml 08/06/24 15:57 08/06/24 15:58 Iopamidol-370 (76%);100ml Bottle IV 08/06/24 15:58 80 ml ONCE ONE Administration Sodium Chloride 10 ml 08/06/24 15:57 08/06/24 15:58 Sodium Chloride 0.9% 10ml Syr (Rad Only) IV 08/06/24 15:58 10 ml ONCE ONE Administration Sodium Chloride 50 ml 08/06/24 15:57 08/06/24 15:58 0.9 % Sodium Chloride 50 Ml Vial IV 08/06/24 15:58 50 ml ONCE ONE Administration ORDERS Category Date Time Status CT abdomen pelvis w con Stat Cat Scan 08/06/24 15:[address] angio chest - dissection Stat Cat Scan 08/06/24 15:22 Completed POCUS Point of Care (ER Only) Stat Exams 08/06/24 15:28 Completed BNP [NT Pro Brain Natriuretic Pep.] Stat Lab 08/06/24 15:15 Completed CBC w/Auto Diff [Complete Blood Count Auto Diff] Stat Lab 08/06/24 15:15 Completed CMP [Comprehensive Metabolic Panel] Stat Lab 08/06/24 15:15 Completed Lipase Stat Lab 08/06/24 15:15 Completed Magnesium Stat Lab 08/06/24 15:15 Completed Procalcitonin Stat Lab 08/06/24 15:15 Completed Trop I [Troponin I] Stat Lab 08/06/24 15:15 Completed UA [Urinalysis and Microscopic] Stat Lab 08/06/24 16:34 Completed MDM Narrative Medical Decision Narrative: In summary patient is a 54-year-old male who presents to the emergency department for evaluation of dyspnea and chest wall pain. Patient is hemodynamically stable with a blood pressure 107/81 pulse 87 with normal sinus rhythm on the bedside monitor breathing 20 times a minute satting at 99% on room air upon arrival, afebrile at 98.2. Physical exam is remarkable for clear breath sounds to the bases without adventitious sounds or increased work of breathing. Patient does have reproducible chest wall pain bilaterally primarily in the lower anterior bilateral chest. Patient has a very distended abdomen but it is soft without rebound or guarding or rigidity. Bowel sounds normal active. Patient has no dependent edema noted. He moves all 4 extremities.. Differential diagnosis includes ACS versus PE versus ascites versus congestive hepatopathy versus anasarca versus abdominal compartment syndrome versus pneumonia versus COPD exacerbation etc. Initial workup will be conducted with hematologic labs urinalysis twelve-lead EKG CT PE protocol CT abdomen pelvis with contrast POCUS. Initial interventions were considered however given the patient has both CHF and reported allergy to diclofenac for now initial interventions deferred until URIBE complete. Initial workup reviewed by me shows that his white count is 9.1 hemoglobin hematocrit 10.7 and 32.4 respectively with an absolute neutrophil count of 6.4, chemistries are significant for CO2 of 18 anion gap of 18 BUN of 38 creatinine 1.8 GFR 40 glucose 146 magnesium is 2 total bilirubin is 2.5 AST is 57 ALT is 45 alk phos 130 initial troponin is 0.03 NT proBNP is 6020 lipase is 81 procalcitonin 0.115 urinalysis is bland and my informal interpretation of his CTA PE protocol and CT abdomen pelvis prior to radiology read shows that the patient has diffuse anasarca small volume ascites likely congestive hepatopathy, he has a 3 x 4 cm focal consolidation of left upper lobe that has been present via my informal interpretation and review of previous imaging since at least April of this year, no evidence of pulmonary emboli. Please see formal radiology read for final interpretation. Given this I ordered 80 mg of Lasix as he is significantly volume overloaded. Upon repeat evaluation patient continues to not have an oxygen requirement has diuresed 2 L so far.. Given this had interactive discussion with hospital medicine regarding patient presentation URIBE and management and hospital came to interview the patient. Initially the hospitalist who is very familiar with the patient felt that he did not have a serious as decompensation as he has had in the past and felt he was stable for discharge. Initially the plan was to discharge the patient and have him follow-up closely with cardiology. However patient is homeless essentially and has no place to live. His son was contacted who wanted to have him directly placed in a nursing facility. Upon being notified that he was being discharged home patient stated that he felt no better than when he got here and will be back by midnight and also all you . He did not say this to me but to the nursing staff. Given that we had an interactive discussion with hospital medicine again who came to reinterviewed the patient. Hospital medicine is gone ahead and admitted him for further evaluation and care primarily for case management and placement evaluation. PALLAVI attestation I was consulted by the PALLAVI, and we discussed the complexity of problems being addressed. I approved the treatment and management plan for this patient's care in the emergency department, thus performing a substantial portion of the medical decision making. I evaluated the patient at bedside. I performed a [id number] ultrasound which redemonstrated the findings of his previous echocardiogram performed on 03/26/2024 notable for severely diminished LVEF and RV function. EKG was independently interpreted by me, revealing of normal sinus rhythm at a rate of 99, QTc 438, left axis deviation, no STEMI. I had several discussions with the patient at bedside and he was also evaluated by the hospitalist as noted above. Initially discharged with plan for outpatient workup, however patient subsequently refused to be discharged from the emergency department. Complaining of worsening left-sided chest pain and shortness of breath. He was requesting a paracentesis however on my independent interpretation of his CT imaging, he had very small volume ascites and there was not any safe fluid pocket. He had already been diuresed. He threatened to brice his providers if he was discharged and stated that he would be representing before midnight. Ultimately he was admitted to the hospitalist service. Kris Manuel MD
--- NOTE | 2024-08-06 15:22 | CT_ITS ---
PROCEDURE INFORMATION: Exam: CTA Chest With Contrast Exam date and time: 08/06/2024 3:57 PM Age: 54 years old Clinical indication: Dyspnea; Additional info: Dyspnea known heart failure TECHNIQUE: Imaging protocol: Computed tomographic angiography of the chest with contrast. Exam focused on the arteries. 3D rendering (Not supervised by radiologist): MIP and/or 3D reconstructed images were created by the technologist. Radiation optimization: All CT scans at this facility use at least one of these dose optimization techniques: automated exposure control; mA and/or kV adjustment per patient size (includes targeted exams where dose is matched to clinical indication); or iterative reconstruction. Contrast material: ISOVUE 370; Contrast volume: 80 ml; Contrast route: INTRAVENOUS (IV); COMPARISON: 1. CT ANGIO CHEST PE PROTOCOL 07/18/2024 4:[address] ANGIO CHEST PE PROTOCOL 05/11/2024 10:09 PM FINDINGS: Pulmonary arteries: Normal. No pulmonary emboli. Aorta: Unremarkable. No aortic aneurysm. No aortic dissection. Veins: Contrast reflux into the IVC and hepatic veins. Lungs: Benign calcified granulomas throughout the lungs. Mild bilateral bronchial wall thickening. Mild mosaicism to the lung parenchyma. 3 x 4 cm focal consolidation in the left upper lobe/lingula has been stable since July 18, 2024, and has slightly decreased in size since April 2024 (4.3 x 5.6 cm). I question if there is some early cavitation within the consolidation, nevertheless this is stable compared with July 18, 2024. Subtle ground-glass haziness throughout both lungs. Pleural spaces: Unremarkable. No pneumothorax. No pleural effusion. Heart: Severe 4 chamber cardiomegaly. Coronary arteries: Severe calcification of the LAD and left circumflex arteries with questionable stents. Lymph nodes: Benign intrapulmonary lymph nodes/perifissural nodules are present. No concerning thoracic adenopathy. Diaphragm: Small hiatal hernia. Intraperitoneal space: Moderate to low volume upper abdominal ascites. Bones/joints: Unremarkable. No acute fracture. Soft tissues: Mild body wall edema. IMPRESSION: 1. 3 x 4 cm focal consolidation in the left upper lobe/lingula has been stable since July 18, 2024, and has slightly decreased in size since April 2024 (4.3 x 5.6 cm). I question if there is some early cavitation within the consolidation, nevertheless this is stable compared with July 18, 2024. Again, chronic pneumonia/chronic consolidation are the most probable diagnosis. Consider follow-up. 2. No pulmonary emboli. 3. Incidental findings as above.
--- NOTE | 2024-08-06 15:22 | CT_ITS ---
PROCEDURE INFORMATION: Exam: CT Abdomen And Pelvis With Contrast Exam date and time: 08/06/2024 3:57 PM Age: 54 years old Clinical indication: Bloating; Additional info: Dyspnea, heart failure, abdominal bloating TECHNIQUE: Imaging protocol: Computed tomography of the abdomen and pelvis with contrast. Radiation optimization: All CT scans at this facility use at least one of these dose optimization techniques: automated exposure control; mA and/or kV adjustment per patient size (includes targeted exams where dose is matched to clinical indication); or iterative reconstruction. Contrast material: ISOVUE; Contrast volume: 80 ml; Contrast route: IV; COMPARISON: CT ABDOMEN PELVIS WO CON 03/27/2024 1:41 AM FINDINGS: Diaphragm: Small hiatal hernia. Liver: Heterogeneous liver enhancement/parenchymal density, favoring passive hepatic congestion. No definitive cirrhosis at this time. No liver masses. Suggestive mild hepatic steatosis. Gallbladder and biliary ducts: Normal. No calcified stones. No ductal dilation. Pancreas: Normal. No ductal dilation. Spleen: Benign calcified splenic granulomas. Adrenal glands: Normal. No mass. Kidneys and ureters: Normal. No hydronephrosis. Stomach and bowel: Tiny duodenal diverticulum at the level of the ampulla of Vater, of no concern. Thickening and hyperenhancement to the jejunal mucosa with slight engorgement of the surrounding vasculature. No bowel obstruction.. Appendix: Appendix is not confidently seen. Intraperitoneal space: Low volume abdominopelvic ascites. Vasculature: Mild atherosclerosis of the aorta. No aneurysms. Lymph nodes: Unremarkable. No enlarged lymph nodes. Urinary bladder: Unremarkable as visualized. Reproductive: Unremarkable as visualized. Bones/joints: Prior lumbosacral spine fixation without definitive complications. Moderate degenerative changes of the thoracolumbar lumbosacral spine. Laminectomies at L4 and L5. No fracture or dislocation. Soft tissues: Small bilateral fat and ascites containing inguinal hernias. Small fat containing umbilical hernia. Mild body wall edema. IMPRESSION: 1. Heterogeneous liver enhancement/parenchymal density, favoring passive hepatic congestion. 2. Thickening and hyperenhancement to the jejunal mucosa with slight engorgement of the surrounding vasculature. Could be related to mild jejunitis/enteritis or congestive changes. 3. Low volume abdominopelvic ascites. 4. Overall, mild volume overload. COMMENTS: Please review chest CT performed concomitantly for other important findings.
[2024-08-06 15:38] LABS: Alanine Aminotransferase 45 U/L (12-78); Albumin Level 4.3 g/dl (3.5-5.0); Albumin/Globulin Ratio 1.3 (1.1-1.8); Alkaline Phosphatase 130 U/L (38-126); Anion Gap 18.6 mEq/L (5-15); Aspartate Amino Transferase 57 U/L (17-59); Bilirubin,Total 2.5 mg/dl (0.2-1.3); Blood Urea Nitrogen 38 mg/dl (9-20); Calcium 9.2 mg/dl (8.4-10.2); Carbon Dioxide 18 mmol/L (22.0-30.0); Chloride 104 mmol/L (98-107); Creatinine Clearance Estimated 53 mL/min (50-200); Estimated Glomerular Filt Rate 40 ml/min (>60); GFR (African American) 48 ML/MIN (>60); Globulin 3.2 g/dL (1.3-3.2); Glucose 146 mg/dl (74-100); Lipase 81 U/L (23-300); Potassium 3.6 mmoL/L (3.5-5.1); Sodium 137 mmol/L (136-145); Total Protein,Serum 7.5 g/dl (6.3-8.2)
[2024-08-06 15:39] LABS: Basophils # 0.1 K/mm3 (0-0.2); Basophils % 0.5 % (0.1-2.0); Eosinophils # 0.1 Kmm3 (0.0-0.4); Eosinophils % 1.2 % (0.1-12.0); Hematocrit 32.4 % (42.0-52.0); Hemoglobin 10.7 g/dL (14.1-18.0); Lymphocytes # 1.5 K/mm3 (0.7-4.5); Lymphocytes % 16.1 % (10-50); Mean Corpuscular Hemoglobin 29.2 pg (27.0-31.2); Mean Corpuscular Volume 88.5 fl (80-94); Mean Platelet Volume 9.9 fl (7.4-10.4); Monocytes # 1.1 K/mm3 (0.1-1.0); Neutrophils # 6.4 K/mm3 (1.8-7.8); Neutrophils % 69.9 % (37.0-80.0); Nucleated Red Blood Cells # 0 10^3/uL; Nucleated Red Blood Cells % 0 %; Platelet Count 428 K/mm3 (142-424); Red Blood Count 3.66 M/mm3 (4.60-6.20); Red Cell Distribution Width 18.6 % (11.5-17.5); Red Cell Distribution Width-SD 59.2 fL; White Blood Count 9.1 K/mm3 (4.8-10.8)
[2024-08-06 15:50] LABS: NT Pro Brain Natriuretic Pep. 6020 pg/mL (0-125); Troponin I 0.03 ng/ml (0.00-0.034)
[2024-08-06 15:55] LABS: Procalcitonin 0.115 ng/mL (0.0-2.0)
[2024-08-06] MEDS: 0.9 % SODIUM CHLORIDE 50 ML VIAL IV (15:58)
[2024-08-06] MEDS: IOPAMIDOL-370 (76%);100ML BOTTLE 80 ML IV (15:58)
[2024-08-06] MEDS: SODIUM CHLORIDE 0.9% 10ML SYR (RAD ONLY) 10 ML IV (15:58)
[2024-08-06 16:40] LABS: Microscopic, Urine URINE MICROSCOPIC (MICROSCOPIC)
[2024-08-06 16:43] LABS: Appearance,Urine CLEAR (Clear); Bilirubin,Urine Negative (Negative); Blood, Urine Negative (Negative); Color,Urine YELLOW (Yellow); Glucose,Urine (UA) Negative (Negative); Ketones,Urine Negative (Negative); Leukocyte Esterase,Urine Negative (Negative); Nitrate,Urine Negative (Negative); PH,Urine 5.5 (5.0-8.5); Protein,Urine Negative (Negative); Urobilinogen,Urine 0.2 EU/dl (0.2)
[2024-08-06] MEDS: FUROSEMIDE 40MG/4ML VIAL 80 MG IV (16:54)
[2024-08-06 17:03] LABS: Squamous Epithelial Cell,Urine Occasional #/hpf (0-5); WBC,Urine Occasional #/hpf (0-3)
--- NOTE | 2024-08-06 17:19 | PC.NURSE ---
DR DE OLIVEIRA AT BEDSIDE
--- NOTE | 2024-08-06 17:38 | PC.NURSE ---
SPOKE WITH SON, WILL TRY TO FIND RIDE FOR PT
--- NOTE | 2024-08-06 19:18 | PC.NURSE ---
Went to dc patient, patient refusing to leave. States that he does not want to leave without paracentesis, or medications for pain. States that he does not have anywhere to go, and if we dc him he will be back before midnight. MD informed of patient statement.
--- NOTE | 2024-08-06 19:59 | PC.NURSE ---
Report called to [place] on 2nd floor.
--- NOTE | 2024-08-06 22:07 | PC.NURSE ---
Pt states he does not know what medications he takes at home. Unable to complete med rec on admission
--- NOTE | 2024-08-06 22:15 | P.HP_ITS ---
History of Present Illness *Admission Date: 08/06/24 *Reason for visit:: Shortness of breath *History of present illness: Manuel Jo is a 54-year-old male with a medical history significant for HFrEF (LVEF 15 to 20%), CAD with 5 stents, LV thrombus, CKD stage III, BPH, medical nonadherence who presents with worsening abdominal distention, shortness of breath over the past day. He states abdominal distention has gradually worsened over the past few weeks, and adamantly states he has been adherent to his medications. He has followed up with cardiology and PCP since last admission this month July suggesting some medical adherence. He states he has also applied for Medicare insurance. Cardiology increased spironolactone to 50 mg twice daily due to worsening abdominal edema on 07/24/2024. However, patient states he does not know which medications he specifically takes and has all pill bottles at home. It is unclear whether patient has adhered to these new instructions. On arrival, patient was showing signs of respiratory distress but remained on room air with nearly 100% saturation. Also endorsing left-sided chest pain with normal troponins, EKG. Completely reproducible to palpation. BNP 6020 better than previous in early July. CTA chest did not show jayashree pu lmonary edema, but did show left upper lobe chronic consolidation that is improving. CT abdomen consistent with congestive hepatopathy, low volume ascites, and mild engorgement of small bowel either from enteritis or fluid overload. Discussed case with ED provider, and I recommended given that patient is on room air that he be diuresed in the ED with close follow-up with cardiology. When I personally examined the patient, he was showing signs of respiratory distress. But upon leaving the room, patient was sitting comfortably in bed without any distress. I do believe there is a portion of embellishment to the symptoms as patient is a regular visitor to our facility and has housing insecurity. I also believe that patient fears dying from his advanced HFrEF and finds solace in our facility. Patient was counseled extensively by me and ED provider he would be stable to return home with a close follow-up with cardiology and pulmonology after IV diuresis in the ED. Patient was adamantly opposed to this and told us he would brice us if we discharged patient home. Patient made significant urine output, but patient continued to in my opinion embellish symptoms of shortness of breath. Ultimately, patient did not have a ride home as family was not amenable to picking him up. I did not find it appropriate to discharge patient with HFrEF 15% without transportation, therefore I accepted patient for admission. Upon moving upstairs, patient was sitting in bed comfortably eating dinner without any distress watching a TV show. [facility] Disclaimer: The information contained in this section may have been updated after the patient was seen, as this information can be updated by other users. Medical History Right foot pain Breath shortness Cough Fluid overload Heart failure Volume overload Hypokalemia Fluid overload Medically noncompliant Bilateral edema of lower extremity CKD stage 3a, GFR 45-59 ml/min CAD (coronary artery disease) Acute on chronic HFrEF (heart failure with reduced ejection fraction) Pneumonia Chest pain Pulmonary infiltrate Hyponatremia Bed bug bite CHF (congestive heart failure) Right atrial thrombus Acute decompensated heart failure Fatigue Nodule of left lung Severe left ventricular systolic dysfunction (LVSD) Transaminitis RENAY (acute kidney injury) Anasarca LV (left ventricular) mural thrombus Acute hypoxemic respiratory failure Cardiogenic shock Non-STEMI (non-ST elevated myocardial infarction) Acute HFrEF (heart failure with reduced ejection fraction) Pneumonia Pleural effusion, bilateral Vitamin B12 deficiency Allergic rhinitis BPH (benign prostatic hyperplasia) Hyperlipidemia Insomnia Partial tear of right Achilles tendon Surgical History History of back surgery Family History Other No significant family history Social History Smoking Status: Never smoker alcohol intake: never substance use type: former substance user and heroin current occupational status: unemployed Travel in the last 8 weeks?: None Have you lived/traveled outside [place] in past 30 days?: No Contact w/someone who lives/traveled outside [place] past 30 days?: No Exposure to someone with infectious disease in past 14 days?: No Do you have a fever (greater than 100.4 F or 38 C)?: No Have you tested positive for COVID-19?: No Exposed to someone with COVID-19 in past 14 days?: No Do you have a sore throat?: No Do you have a cough?: No Do you have any weakness?: No Do you have any diarrhea?: No Are you experiencing any unusual bleeding?: No Do you have any muscle aches/pain?: No Do you have any abdominal pain?: No Are you experiencing loss of taste or smell?: No Other Medical History Have you received the Flu Vaccine for this season: No Have you received the Pneumonia Vaccine: No Meds Home Medications and Allergies Home Medications ?Medication ?Instructions ?Recorded ?Confirmed ?Type apixaban 5 mg tablet (Eliquis) 5 mg PO BID 30 days #60 tabs 07/14/24 07/25/24 Rx atorvastatin 80 mg tablet 80 mg PO HS 30 days #30 tabs 07/14/24 07/25/24 Rx clopidogrel 75 mg tablet (Plavix) 75 mg PO DAILY 30 days #30 tabs 07/14/24 07/25/24 Rx metoprolol succinate 50 mg 50 mg PO DAILY 30 days #30 tabs 07/14/24 07/25/24 Rx tablet,extended release 24 hr (Toprol XL) tamsulosin 0.4 mg capsule 0.4 mg PO HS Urine Flow 30 days 07/14/24 07/24/24 Rx #30 caps spironolactone 50 mg tablet 50 mg PO BID #60 tabs 07/25/24 Rx bumetanide 2 mg tablet 3 mg (1.5 x 2 mg) PO BID #90 tabs 07/26/24 Rx New Prescriptions to Start Prescriptions: Allergies Allergy/AdvReac Type Severity Reaction Status Date / Time diclofenac (DICLOFENAC) Allergy Unknown Unknown Verified 07/25/24 10:33 allergy reaction Penicillins (PENICILLINS) Allergy Unknown Hives Verified 07/25/24 10:33 propoxyphene (PROPOXYPHENE) Allergy Unknown Unknown Verified 07/25/24 10:33 allergy reaction tramadol (TRAMADOL) Allergy Unknown Vomiting Verified 07/25/24 10:33 Exam Data for Last 24 hours Vital signs and Labs for Last 24 Hours: Temp Pulse Resp BP Pulse Ox O2 Del Method 98.0 F 90 17 108/79 L 97 Room Air 08/06/24 20:39 08/06/24 20:39 08/06/24 20:39 08/06/24 20:39 08/06/24 19:30 08/06/24 21:00 Laboratory Results - last 24 hr 08/06/24 15:15: WBC 9.1, RBC 3.66 L, Hgb 10.7 L, Hct 32.4 L, MCV 88.5, MCH 29.2, MCHC 33.0, RDW 18.6 H, Plt Count 428 H, MPV 9.9, Neut % (Auto) 69.9, Lymph % (Auto) 16.1, [place] % (Auto) 12.0 H, Eos % (Auto) 1.2, Baso % (Auto) 0.5, Neut # (Auto) 6.4, Lymph # (Auto) 1.5, [place] # (Auto) 1.1 H, Eos # (Auto) 0.1, Baso # (Auto) 0.1, Sodium 137, Potassium 3.6, Chloride 104, Carbon Dioxide 18 L, Anion Gap 18.6 H, BUN 38 H, Creatinine 1.80 H, Estimated Creat Clear 53, Estimated GFR 40 L, Est GFR ( Amer) 48 L, Glucose 146 H, Calcium 9.2, Magnesium 2.0, Total Bilirubin 2.5 H, AST 57, ALT 45, Alkaline Phosphatase 130 H, Troponin I 0.03, NT-Pro-B Natriuret Pep 6020 H, Total Protein 7.5, Albumin 4.3, Globulin 3.2, Albumin/Globulin Ratio 1.3, Lipase 81, Procalcitonin 0.115 08/06/24 16:34: Urine Color Yellow, Urine Appearance Clear, Urine pH 5.5, Ur Specific [place] 1.010, Urine Protein Negative, Urine Glucose (UA) Negative, Urine Ketones Negative, Urine Blood Negative, Urine Nitrate Negative, Urine Bilirubin Negative, Urine Urobilinogen 0.2, Ur Leukocyte Esterase Negative, Urine RBC None, Urine WBC Occasional, Ur Squamous Epith Cells Occasional, Urine Bacteria None I & O for Last 24 hours: Intake & Output 08/03/24 08/04/24 08/05/24 08/06/24 23:59 23:59 23:59 23:59 Output Total 1500 / 1500 Balance -1500 / -1500 Weight 79.379 kg Constitutional Constitutional: no acute distress *Routine HEENT Exam Head: Present normocephalic Eye: Present EOMI and PERRL ENT: Present mucous membranes moist *Routine Neck Exam Neck: Present supple; Absent lymphadenopathy *Routine Respiratory Exam Respiratory: Present CTA bilaterally *Routine Cardiovascular Exam Cardiovascular: Present RRR *Routine Abdominal Exam Abdominal: Present soft, normoactive bowel sounds and distended; Absent tenderness *Routine Rectal Exam Rectal:: deferred *Routine Genitalia Exam Genitalia:: deferred *Routine Extremities Exam Extremities: Present edema; Absent cyanosis or clubbing *Routine Skin Exam Skin: Present warm; Absent rash *Routine Neurological Exam Neurological: Present alert and oriented X3 Assessment and Plan *Assessment and plan (1) CHF (congestive heart failure): Status: Acute Category: Medical Code(s): I50.9 - Heart failure, unspecified Plan Manuel Jo is a 54-year-old male with a medical history significant for HFrEF (LVEF 15 to 20%), CAD with 5 stents, LV thrombus, CKD stage III, BPH, medical nonadherence who presents with worsening abdominal distention, shortness of breath over the past day. He states abdominal distention has gradually worsened over the past few weeks, and adamantly states he has been adherent to his medications. He has followed up with cardiology and PCP since last admission this month July suggesting some medical adherence. Cardiology increased spironolactone to 50 mg twice daily due to worsening abdominal edema on 07/24/2024. However, patient states he does not know which medications he specifically takes and has all pill bottles at home. It is unclear whether patient has adhered to these new instructions. On arrival, patient was showing signs of respiratory distress but remained on room air with nearly 100% saturation. Also endorsing left-sided chest pain with normal troponins, EKG. Completely reproducible to palpation. BNP 6020 better than previous in early July. CTA chest did not show jayashree pulmonary edema, but did show left upper lobe chronic consolidation that is improving. CT abdomen consistent with congestive hepatopathy, low volume ascites, and mild engorgement of small bowel either from enteritis or fluid overload. Discussed case with ED provider, and I recommended given that patient is on room air that he be diuresed in the ED with close follow-up with cardiology. When I personally examined the patient, he was showing signs of respiratory distress. But upon leaving the room, patient was sitting comfortably in bed without any distress. I do believe there is a portion of embellishment to the symptoms as patient is a regular visitor to our facility and has housing insecurity. I also believe that patient fears dying from his advanced HFrEF and finds solace in our facility. Patient was counseled extensively by me and ED provider he would be stable to return home with a close follow-up with cardiology and pulmonology after IV diuresis in the ED. Patient was adamantly opposed to this and told us he would brice us if we discharged patient home. Patient made significant urine output, but patient continued to in my opinion embellish symptoms of shortness of breath. Ultimately, patient did not have a ride home as family was not amenable to picking him up. I did not find it appropriate to discharge patient with HFrEF 15% without transportation, therefore I accepted patient for admission. #HFrEF 15 to 20% #CAD with 5 stents #Shortness of breath ? Presented with progressively worsening abdominal distention and 1 day onset of shortness of breath. ? Initial BNP 6020, notable abdominal distention without significant tightness, some lower extremity pitting edema. ? Cardiology increase spironolactone to 50 mg twice daily, but patient does not know which medications he takes. ? Shortness of breath symptoms seem to be embellished, as patient has no distress without a provider in the room. ? Does have housing insecurity, and likely also fears futher compromise of his HFrEF at home. Frequent visitor to our facility, and finds solace here. ? Increased home Bumex to 3 mg twice daily, continue spironolactone 50 mg twice daily. ? Continue metoprolol succinate 50 mg, aspirin, Plavix. Patient likely unable to afford Eliquis. ? Follow-up limited ECHO. ? Cardiology consulted for further recommendations. #Left upper lobe lesion #Current tobacco smoker ? 3 x 4 cm left upper lobe lesion, seems to have improved from previous CT. But not resolved. Previously treated with clindamycin by pulmonology. ? Pulmonology consulted, pending further recommendations. #LV thrombus ? Continue Eliquis 5 mg twice daily here, though patient has not been adherent due to cost of medication. #CKD stage III ? Creatinine 1.8, GFR 40. Around baseline for patient. Renally dose meds. #BPH ? Continue home tamsulosin. Full code DVT prophylaxis: Eliquis
[2024-08-06] MEDS: ACETAMINOPHEN 325MG TAB 650 MG PO (23:00)
[2024-08-07] VITALS: PULSE 90
[2024-08-07 04:00] VITALS: BP 103/67; PULSE 80; PULSE 83; TEMP 36.5; O2SAT 98; BMI 23.3
--- NOTE | 2024-08-07 04:38 | PC.NURSE ---
Pt reports decrease in chest pain after receiving tylenol. AOx4. Respirations even and unlabored. NSR on tele. Bed low, locked, and call light in reach.
[2024-08-07 06:28] LABS: Basophils # 0.1 K/mm3 (0-0.2); Basophils % 1.1 % (0.1-2.0); Eosinophils # 0.2 Kmm3 (0.0-0.4); Eosinophils % 2.9 % (0.1-12.0); Hematocrit 30.5 % (42.0-52.0); Lymphocytes # 1.2 K/mm3 (0.7-4.5); Lymphocytes % 19.1 % (10-50); Mean Corpuscular HGB Conc 32.8 g/dL (31.8-35.4); Mean Corpuscular Hemoglobin 28.7 pg (27.0-31.2); Mean Corpuscular Volume 87.6 fl (80-94); Mean Platelet Volume 9.6 fl (7.4-10.4); Monocytes # 0.8 K/mm3 (0.1-1.0); Monocytes % 12.6 % (1.7-9.3); Neutrophils # 4.2 K/mm3 (1.8-7.8); Neutrophils % 64.1 % (37.0-80.0); Nucleated Red Blood Cells # 0 10^3/uL; Nucleated Red Blood Cells % 0 %; Platelet Count 321 K/mm3 (142-424); Red Blood Count 3.48 M/mm3 (4.60-6.20); Red Cell Distribution Width 18.8 % (11.5-17.5); Red Cell Distribution Width-SD 59.3 fL; White Blood Count 6.5 K/mm3 (4.8-10.8)
[2024-08-07 06:31] LABS: Chloride 102 mmol/L (98-107); Potassium 3.3 mmoL/L (3.5-5.1); Sodium 134 mmol/L (136-145)
[2024-08-07 06:33] LABS: Blood Urea Nitrogen 33 mg/dl (9-20); Creatinine Clearance Estimated 49 mL/min (50-200); Estimated Glomerular Filt Rate 42 ml/min (>60); GFR (African American) 51 ML/MIN (>60)
[2024-08-07 06:34] LABS: Alanine Aminotransferase 34 U/L (12-78); Albumin/Globulin Ratio 1.3 (1.1-1.8); Alkaline Phosphatase 131 U/L (38-126); Anion Gap 12.3 mEq/L (5-15); Aspartate Amino Transferase 48 U/L (17-59); Bilirubin,Total 1.6 mg/dl (0.2-1.3); Calcium 9.1 mg/dl (8.4-10.2); Carbon Dioxide 23 mmol/L (22.0-30.0); Glucose 173 mg/dl (74-100); Magnesium 1.8 mg/dl (1.6-2.3)
--- NOTE | 2024-08-07 07:04 | EXP.DC.SUM ---
General Admission date:: 08/06/24 Discharge date: 08/07/24 HPI HPI HPI: Manuel Jo is a 54-year-old male with a medical history significant for HFrEF (LVEF 15 to 20%), CAD with 5 stents, LV thrombus, CKD stage III, BPH, medical nonadherence who presents with worsening abdominal distention, shortness of breath over the past day. He states abdominal distention has gradually worsened over the past few weeks, and adamantly states he has been adherent to his medications. He has followed up with cardiology and PCP since last admission this month July suggesting some medical adherence. He states he has also applied for Medicare insurance. Cardiology increased spironolactone to 50 mg twice daily due to worsening abdominal edema on 07/24/2024. However, patient states he does not know which medications he specifically takes and has all pill bottles at home. It is unclear whether patient has adhered to these new instructions. On arrival, patient was showing signs of respiratory distress but remained on room air with nearly 100% saturation. Also endorsing left-sided chest pain with normal troponins, EKG. Completely reproducible to palpation. BNP 6020 better than previous in early July. CTA chest did not show jayashree pulmonary edema, but did show left upper lobe chronic consolidation that is improving. CT abdomen consistent with congestive hepatopathy, low volume ascites, and mild engorgement of small bowel either from enteritis or fluid overload. Discussed case with ED provider, and I recommended given that patient is on room air that he be diuresed in the ED with close follow-up with cardiology. When I personally examined the patient, he was showing signs of respiratory distress. But upon leaving the room, patient was sitting comfortably in bed without any distress. I do believe there is a portion of embellishment to the symptoms as patient is a regular visitor to our facility and has housing insecurity. I also believe that patient fears dying from his advanced HFrEF and finds solace in our facility. Patient was counseled extensively by me and ED provider he would be stable to return home with a close follow-up with cardiology and pulmonology after IV diuresis in the ED. Patient was adamantly opposed to this and told us he would brice us if we discharged patient home. Patient made significant urine output, but patient continued to in my opinion embellish symptoms of shortness of breath. Ultimately, patient did not have a ride home as family was not amenable to picking him up. I did not find it appropriate to discharge patient with HFrEF 15% without transportation, therefore I accepted patient for admission. Upon moving upstairs, patient was sitting in bed comfortably eating dinner without any distress watching a TV show. Hospital Course Hospital Course Hospital Course: Manuel Jo is a 54-year-old male with a medical history significant for HFrEF (LVEF 15 to 20%), CAD with 5 stents, LV thrombus, CKD stage III, BPH, medical nonadherence who presents with worsening abdominal distention, shortness of breath over the past day. He states abdominal distention has gradually worsened over the past few weeks, and adamantly states he has been adherent to his medications. He has followed up with cardiology and PCP since last admission this month July suggesting some medical adherence. Cardiology increased spironolactone to 50 mg twice daily due to worsening abdominal edema on 07/24/2024. However, patient states he does not know which medications he specifically takes and has all pill bottles at home. It is unclear whether patient has adhered to these new instructions. On arrival, patient was showing signs of respiratory distress but remained on room air with nearly 100% saturation. Also endorsing left-sided chest pain with normal troponins, EKG. Completely reproducible to palpation. BNP 6020 better than previous in early July. CTA chest did not show jayashree pulmonary edema, but did show left upper lobe chronic consolidation that is improving. CT abdomen consistent with congestive hepatopathy, low volume ascites, and mild engorgement of small bowel either from enteritis or fluid overload. Discussed case with ED provider, and I recommended given that patient is on room air that he be diuresed in the ED with close follow-up with cardiology. When I personally examined the patient, he was showing signs of respiratory distress. But upon leaving the room, patient was sitting comfortably in bed without any distress. I do believe there is a portion of embellishment to the symptoms as patient is a regular visitor to our facility and has housing insecurity. I also believe that patient fears dying from his advanced HFrEF and finds solace in our facility. Patient was counseled extensively by me and ED provider he would be stable to return home with a close follow-up with cardiology and pulmonology after IV diuresis in the ED. Patient was adamantly opposed to this and told us he would brice us if we discharged patient home. Patient made significant urine output, but patient continued to in my opinion embellish symptoms of shortness of breath. Ultimately, patient did not have a ride home as family was not amenable to picking him up. I did not find it appropriate to discharge patient with HFrEF 15% without transportation, therefore I accepted patient for admission. Patient evaluated for placement due to his housing insecurity. [facility]. Stable to discharge. Problems addressed as follows: #HFrEF 15 to 20% #CAD with 5 stents #Shortness of breath ? Presented with progressively worsening abdominal distention and 1 day onset of shortness of breath. Initial BNP 6020, notable abdominal distention without significant tightness, some lower extremity pitting edema. Cardiology increased spironolactone to 50 mg twice daily, but patient does not know which medications he takes. Shortness of breath symptoms seem to be embellished, as patient has no distress without a provider in the room. Does have housing insecurity, and likely also fears futher compromise of his HFrEF at home. Frequent visitor to our facility, and finds solace here. Increased home Bumex to 3 mg twice daily, continue spironolactone 50 mg twice daily. Continue metoprolol succinate 50 mg, aspirin, Plavix. Patient likely unable to afford Eliquis. Follow-up limited ECHO with stable EF. No changes at this time. Cardiology evaluated in the morning, agrees with continuing current regimen. #Left upper lobe lesion #Current tobacco smoker ? 3 x 4 cm left upper lobe lesion, seems to have improved from previous CT. But not resolved. Previously treated with clindamycin by pulmonology. ? Pulmonology consulted, recommend outpatient follow-up with repeat CT. Lesion does appear to be improving. No further antibiotics at this time #LV thrombus: Continue Eliquis 5 mg twice daily here, though patient has not been adherent due to cost of medication. Due to cost and patient noncompliance, not continue to discharge #CKD stage III: Creatinine 1.8, GFR 40. Around baseline for patient. Renally dose meds. #BPH: Continue home tamsulosin. Total time spent on discharge 32 minutes in counseling, documentation, chart review, and direct care with patient. Exam Data for Last 24 hours Vital signs and Labs for Last 24 Hours: Temp Pulse Resp BP Pulse Ox O2 Del Method 97.7 F 83 16 103/67 L 98 Room Air 08/07/24 04:00 08/07/24 04:00 08/06/24 20:40 08/07/24 04:00 08/07/24 04:00 08/07/24 06:24 Laboratory Results - last 24 hr 08/06/24 15:15: WBC 9.1, RBC 3.66 L, Hgb 10.7 L, Hct 32.4 L, MCV 88.5, MCH 29.2, MCHC 33.0, RDW 18.6 H, Plt Count 428 H, MPV 9.9, Neut % (Auto) 69.9, Lymph % (Auto) 16.1, [place] % (Auto) 12.0 H, Eos % (Auto) 1.2, Baso % (Auto) 0.5, Neut # (Auto) 6.4, Lymph # (Auto) 1.5, [place] # (Auto) 1.1 H, Eos # (Auto) 0.1, Baso # (Auto) 0.1, Sodium 137, Potassium 3.6, Chloride 104, Carbon Dioxide 18 L, Anion Gap 18.6 H, BUN 38 H, Creatinine 1.80 H, Estimated Creat Clear 53, Estimated GFR 40 L, Est GFR ( Amer) 48 L, Glucose 146 H, Calcium 9.2, Magnesium 2.0, Total Bilirubin 2.5 H, AST 57, ALT 45, Alkaline Phosphatase 130 H, Troponin I 0.03, NT-Pro-B Natriuret Pep 6020 H, Total Protein 7.5, Albumin 4.3, Globulin 3.2, Albumin/Globulin Ratio 1.3, Lipase 81, Procalcitonin 0.115 08/06/24 16:34: Urine Color Yellow, Urine Appearance Clear, Urine pH 5.5, Ur Specific [place] 1.010, Urine Protein Negative, Urine Glucose (UA) Negative, Urine Ketones Negative, Urine Blood Negative, Urine Nitrate Negative, Urine Bilirubin Negative, Urine Urobilinogen 0.2, Ur Leukocyte Esterase Negative, Urine RBC None, Urine WBC Occasional, Ur Squamous Epith Cells Occasional, Urine Bacteria None 08/07/24 06:06: WBC 6.5 D, RBC 3.48 L, Hgb 10.0 L, Hct 30.5 L, MCV 87.6, MCH 28.7, MCHC 32.8, RDW 18.8 H, Plt Count 321, MPV 9.6, Neut % (Auto) 64.1, Lymph % (Auto) 19.1, [place] % (Auto) 12.6 H, Eos % (Auto) 2.9, Baso % (Auto) 1.1, Neut # (Auto) 4.2, Lymph # (Auto) 1.2, [place] # (Auto) 0.8, Eos # (Auto) 0.2, Baso # (Auto) 0.1, Sodium 134 L, Potassium 3.3 L, Chloride 102, Carbon Dioxide 23, Anion Gap 12.3, BUN 33 H, Creatinine 1.70 H, Estimated Creat Clear 49, Estimated GFR 42 L, Est GFR ( Amer) 51 L, Glucose 173 H, Calcium 9.1, Magnesium 1.8, Total Bilirubin 1.6 H, AST 48, ALT 34, Alkaline Phosphatase 131 H, Total Protein 7.0, Albumin 4.0, Globulin 3.0, Albumin/Globulin Ratio 1.3 I & O for Last 24 hours: Intake & Output 08/04/24 08/05/24 08/06/24 08/07/24 23:59 23:59 23:59 23:59 Intake Total 355 / 355 Output Total 1500 / 1500 1375 / 1375 Balance -1500 / -1500 -1020 / -1020 Weight 71.033 kg 69.672 kg Constitutional Constitutional: no acute distress, thin, chronically ill appearing and cooperative *Routine HEENT Exam Head: Present normocephalic Eye: Present EOMI and PERRL ENT: Present mucous membranes moist *Routine Neck Exam Neck: Present supple; Absent lymphadenopathy *Routine Respiratory Exam Respiratory: Present CTA bilaterally; Absent rhonchi, wheezes or crackles *Routine Cardiovascular Exam Cardiovascular: Present tachycardia Comments: Regular rhythm, tachycardic ~100 *Routine Abdominal Exam Abdominal: Present soft and normoactive bowel sounds; Absent tenderness *Routine Rectal Exam Patient deferred: visual exam *Routine Exam Patient deferred: penile exam *Routine Extremities Exam Extremities: Present edema (Trace bilateral lower extremity to knees); Absent cyanosis or clubbing *Routine Skin Exam Skin: Present intact and warm; Absent rash *Routine Neurological Exam Neurological: Present alert, oriented X3 and moving all extremities; Absent altered mental status Routine Psychiatric Exam Psychiatric: Present normal affect; Absent good insight or good judgment Results Data Completed and Pending Labs on day of discharge: Labs from last 24 hours 08/07/24 08/06/24 08/06/24 06:06 16:34 15:15 WBC 6.5 D 9.1 RBC 3.48 L 3.66 L Hgb 10.0 L 10.7 L Hct 30.5 L 32.4 L MCV 87.6 88.5 MCH 28.7 29.2 MCHC 32.8 33.0 RDW 18.8 H 18.6 H Plt Count 321 428 H MPV 9.6 9.9 Neut % (Auto) 64.1 69.9 Lymph % (Auto) 19.1 16.1 [place] % (Auto) 12.6 H 12.0 H Eos % (Auto) 2.9 1.2 Baso % (Auto) 1.1 0.5 Neut # (Auto) 4.2 6.4 Lymph # (Auto) 1.2 1.5 [place] # (Auto) 0.8 1.1 H Eos # (Auto) 0.2 0.1 Baso # (Auto) 0.1 0.1 Sodium 134 L 137 Potassium 3.3 L 3.6 Chloride 102 104 Carbon Dioxide 23 18 L Anion Gap 12.3 18.6 H BUN 33 H 38 H Creatinine 1.70 H 1.80 H Estimated Creat Clear 49 53 Estimated GFR 42 L 40 L Est GFR ( Amer) 51 L 48 L Glucose 173 H 146 H Calcium 9.1 9.2 Magnesium 1.8 2.0 Total Bilirubin 1.6 H 2.5 H AST 48 57 ALT 34 45 Alkaline Phosphatase 131 H 130 H Troponin I 0.03 NT-Pro-B Natriuret Pep 6020 H Total Protein 7.0 7.5 Albumin 4.0 4.3 Globulin 3.0 3.2 Albumin/Globulin Ratio 1.3 1.3 Lipase 81 Procalcitonin 0.115 Urine Color Yellow Urine Appearance Clear Urine pH 5.5 Ur Specific [place] 1.010 Urine Protein Negative Urine Glucose (UA) Negative Urine Ketones Negative Urine Blood Negative Urine Nitrate Negative Urine Bilirubin Negative Urine Urobilinogen 0.2 Ur Leukocyte Esterase Negative Urine RBC None Urine WBC Occasional Ur Squamous Epith Cells Occasional Urine Bacteria None DS: Diagnosis Discharge Diagnosis (1) CHF (congestive heart failure): Status: Acute Code(s): I50.9 - Heart failure, unspecified Meds Home Medications and Allergies Home Medications ?Medication ?Instructions ?Recorded ?Confirmed ?Type atorvastatin 80 mg tablet 80 mg PO HS 30 days #30 tabs 08/07/24 Rx bumetanide 2 mg tablet 3 mg (1.5 x 2 mg) PO BID 3 days #9 08/07/24 Rx tabs clopidogrel 75 mg tablet 75 mg PO DAILY 30 days #30 tabs 08/07/24 Rx metoprolol succinate 50 mg 50 mg PO DAILY 30 days #30 tabs 08/07/24 Rx tablet,extended release 24 hr (Toprol XL) spironolactone 50 mg tablet 50 mg PO BID 30 days #60 tabs 08/07/24 Rx tamsulosin 0.4 mg capsule 0.4 mg PO HS 30 days #30 caps 08/07/24 Rx New Prescriptions to Start Prescriptions: katerina Haney,Jace bumetanide [place],Jace clopidogrel [place],Jace metoprolol succinate [Toprol XL] Jace Haney spironolactone [place],Jace tamsulosin Jace Haney Allergies Allergy/AdvReac Type Severity Reaction Status Date / Time diclofenac (DICLOFENAC) Allergy Unknown Unknown Verified 07/25/24 10:33 allergy reaction Penicillins (PENICILLINS) Allergy Unknown Hives Verified 07/25/24 10:33 propoxyphene (PROPOXYPHENE) Allergy Unknown Unknown Verified 07/25/24 10:33 allergy reaction tramadol (TRAMADOL) Allergy Unknown Vomiting Verified 07/25/24 10:33 Discharge Plan Disposition Patient Disposition: Home, Self-Care Condition: Fair Follow up Plan Follow up with: Adali Ca MD [Physician] - 09/04/24 1:00 pm Constantin Bustillo MD [Staff Physician] - 08/28/24 2:15 pm Prescriptions/Medication Reconciliation: New atorvastatin 80 mg tablet 80 mg PO HS 30 Days Qty: 30 0RF metoprolol succinate [Toprol XL] 50 mg Tablet Extended Release 24 Hr 50 mg PO DAILY 30 Days Qty: 30 0RF clopidogrel 75 mg Tablet 75 mg PO DAILY 30 Days Qty: 30 0RF tamsulosin 0.4 mg Capsule 0.4 mg PO HS 30 Days Qty: 30 0RF spironolactone 50 mg tablet 50 mg PO BID 30 Days Qty: 60 0RF Continued bumetanide 2 mg tablet 3 mg PO BID 3 Days Qty: 9 0RF Other Ambulatory Orders: CT chest wo con (Routine) Timeframe: 3 Months Facility: [facility] - Location: Radiology Ordered By: Adali Ca Problem Reconciliation Problems Reviewed?: Yes Patient Discharge Instructions ACTIVITY: Continue current activity DIET: continue same diet Patient Instructions: DI for Heart Failure Exacerbations Print Language: Occitan Providers Primary Care Provider: Luis E Oscar Admit Provider: John Parikh Attending Provider: John Pairkh
[2024-08-07] MEDS: DEFINITY US ECHO CONTRAST 2ML INJ 2 MG IV (07:35)
[2024-08-07 08:00] VITALS: BP 121/66; PULSE 80; PULSE 83; RESP 16; O2SAT 100
[2024-08-07] MEDS: SPIRONOLACTONE 25MG TABLET 50 MG PO (08:02)
[2024-08-07] MEDS: BUMETANIDE 1MG/4ML VIAL 3 MG IV (08:03)
[2024-08-07] MEDS: APIXABAN 5MG TABLET 5 MG PO (08:03)
[2024-08-07] MEDS: POTASSIUM CHLORIDE 20MEQ TAB 40 MEQ PO (08:03)
[2024-08-07] MEDS: METOPROLOL SUCCINATE XL 50MG TABLET 50 MG PO (08:04)
[2024-08-07] MEDS: CLOPIDOGREL 75MG TAB 75 MG PO (08:04)
--- NOTE | 2024-08-07 08:38 | SW/DCPLANNER ---
Addendum entered by Su Goodrich 08/07/24 14:05: Per Linda car[facility]/ [facility] she can accept patient to facility today. Addendum entered by Su Goodrich 08/07/24 14:02: I did utilize [facility] to cover expense of medication ($33). Addendum entered by Su Goodrich 08/07/24 09:46: Linda [facility]/ [facility] is agreeable to accept this patient pending Administration approval. Patient is also agreeable to facility. Patient will discharge to [facility] today pending approval from Administration. Original Note: I spoke w/ this patient regarding discharge planning. Per med/surg staff patient voiced that he is homeless at this time. PT/OT has been ordered to evaluate patient this AM. During my conversation w/ patient he stated that he is living w/ a friend in [facility] but that is too far away. I discussed options of homeless shelters and patient stated he is not interested because they are all too far away. Patient expressed an interest in LTC at time of discharge. After discussion w/ Dr Haney patient could be appropriate to [facility]. [facility] is interested [facility]. Linda car[facility]/ [facility] will be onsite this AM to evaluate and speak w/ this patient. Per patient is medically stable for discharge today. I will continue to follow up w/ MD calderon, [facility] and PT/OT.
--- NOTE | 2024-08-07 09:21 | P.CONCA_ITS ---
History of Present Illness History of Present Illness Consult date: 08/07/24 Requesting physician: John Parikh Chief complaint: soa History of present illness: Hospitalist note:Manuel Jo is a 54-year-old male with a medical history significant for HFrEF (LVEF 15 to 20%), CAD with 5 stents, LV thrombus, CKD stage III, BPH, medical nonadherence who presents with worsening abdominal distention, shortness of breath over the past day. He states abdominal distention has gradually worsened over the past few weeks, and adamantly states he has been adherent to his medications. He has followed up with cardiology and PCP since last admission this month July suggesting some medical adherence. He states he has also applied for Medicare insurance. Cardiology increased spironolactone to 50 mg twice daily due to worsening abdominal edema on 07/24/2024. However, patient states he does not know which medications he specifically takes and has all pill bottles at home. It is unclear whether patient has adhered to these new instructions. On arrival, patient was showing signs of respiratory distress but remained on room air with nearly 100% saturation. Also endorsing left-sided chest pain with normal troponins, EKG. Completely reproducible to palpation. BNP 6020 better than previous in early July. CTA chest did not show jayashree pulmonary edema, but did show left upper lobe chronic consolidation that is improving. CT abdomen consistent with congestive hepatopathy, low volume ascites, and mild engorgement of small bowel either from enteritis or fluid overload. Discussed case with ED provider, and I recommended given that patient is on room air that he be diuresed in the ED with close follow-up with cardiology. When I personally examined the patient, he was showing signs of respiratory distress. But upon leaving the room, patient was sitting comfortably in bed without any distress. I do believe there is a portion of embellishment to the symptoms as patient is a regular visitor to our facility and has housing insecurity. I also believe that patient fears dying from his advanced HFrEF and finds solace in our facility. Patient was counseled extensively by me and ED provider he would be stable to return home with a close follow-up with cardiology and pulmonology after IV diuresis in the ED. Patient was adamantly opposed to this and told us he would brice us if we discharged patient home. Patient made significant urine output, but patient continued to in my opinion embellish symptoms of shortness of breath. Ultimately, patient did not have a ride home as family was not amenable to picking him up. I did not find it appropriate to discharge patient with HFrEF 15% without transportation, therefore I accepted patient for admission. Upon moving upstairs, patient was sitting in bed comfortably eating dinner without any distress watching a TV show. Cardiology note: This morning patient is resting comfortably in bed and denies chest pain or shortness of breath. Reports symptoms have improved. Mild crackles noted to lung bases worse on the left. No lower extremity edema noted. CTA chest from yesterday is negative for pleural effusions but does show severe four-chamber cardiomegaly. CTA was negative for PE. Morning labs reviewed. Repeat limited echo is pending. [facility] Disclaimer: The information contained in this section may have been updated after the patient was seen, as this information can be updated by other users. Medical History (Updated 08/07/24 @ 11:56 by Monika Sheth APRN) Lung nodule Right foot pain Breath shortness Cough Fluid overload Heart failure Volume overload Hypokalemia Fluid overload Medically noncompliant Bilateral edema of lower extremity CKD stage 3a, GFR 45-59 ml/min CAD (coronary artery disease) Acute on chronic HFrEF (heart failure with reduced ejection fraction) Pneumonia Chest pain Pulmonary infiltrate Hyponatremia Bed bug bite CHF (congestive heart failure) Right atrial thrombus Acute decompensated heart failure Fatigue Nodule of left lung Severe left ventricular systolic dysfunction (LVSD) Transaminitis RENAY (acute kidney injury) Anasarca LV (left ventricular) mural thrombus Acute hypoxemic respiratory failure Cardiogenic shock Non-STEMI (non-ST elevated myocardial infarction) Acute HFrEF (heart failure with reduced ejection fraction) Pneumonia Pleural effusion, bilateral Vitamin B12 deficiency Allergic rhinitis BPH (benign prostatic hyperplasia) Hyperlipidemia Insomnia Partial tear of right Achilles tendon Surgical History History of back surgery Family History Other No significant family history Social History Smoking Status: Never smoker alcohol intake: never substance use type: former substance user and heroin current occupational status: unemployed Travel in the last 8 weeks?: None Review of Systems Review of Systems Review of systems:: pertinent systems reviewed and negative unless documented below Constitutional Constitutional: Reports system reviewed and no additional complaints, except as documented *Cardiovascular Cardiovascular: Reports system reviewed and no additional complaints, except as documented *Respiratory Respiratory: Reports system reviewed and no additional complaints, except as documented *Gastrointestinal Gastrointestinal: Reports system reviewed and no additional complaints, except as documented *Neurologic Neurologic: Reports system reviewed and no additional complaints, except as documented and Denies confusion Psychiatric Psychiatric: Reports system reviewed and no additional complaints, except as documented and Denies confusion Exam Data for Last 24 hours Vital signs and Labs for Last 24 Hours: Temp Pulse Resp BP Pulse Ox O2 Del Method 97.7 F 83 16 121/66 100 Room Air 08/07/24 04:00 08/07/24 08:00 08/07/24 08:00 08/07/24 08:00 08/07/24 08:00 08/07/24 08:16 Laboratory Results - last 24 hr 08/06/24 15:15: WBC 9.1, RBC 3.66 L, Hgb 10.7 L, Hct 32.4 L, MCV 88.5, MCH 29.2, MCHC 33.0, RDW 18.6 H, Plt Count 428 H, MPV 9.9, Neut % (Auto) 69.9, Lymph % (Auto) 16.1, [place] % (Auto) 12.0 H, Eos % (Auto) 1.2, Baso % (Auto) 0.5, Neut # (Auto) 6.4, Lymph # (Auto) 1.5, [place] # (Auto) 1.1 H, Eos # (Auto) 0.1, Baso # (Auto) 0.1, Sodium 137, Potassium 3.6, Chloride 104, Carbon Dioxide 18 L, Anion Gap 18.6 H, BUN 38 H, Creatinine 1.80 H, Estimated Creat Clear 53, Estimated GFR 40 L, Est GFR ( Amer) 48 L, Glucose 146 H, Calcium 9.2, Magnesium 2.0, Total Bilirubin 2.5 H, AST 57, ALT 45, Alkaline Phosphatase 130 H, Troponin I 0.03, NT-Pro-B Natriuret Pep 6020 H, Total Protein 7.5, Albumin 4.3, Globulin 3.2, Albumin/Globulin Ratio 1.3, Lipase 81, Procalcitonin 0.115 08/06/24 16:34: Urine Color Yellow, Urine Appearance Clear, Urine pH 5.5, Ur Specific [place] 1.010, Urine Protein Negative, Urine Glucose (UA) Negative, Urine Ketones Negative, Urine Blood Negative, Urine Nitrate Negative, Urine Bilirubin Negative, Urine Urobilinogen 0.2, Ur Leukocyte Esterase Negative, Urine RBC None, Urine WBC Occasional, Ur Squamous Epith Cells Occasional, Urine Bacteria None 08/07/24 06:06: WBC 6.5 D, RBC 3.48 L, Hgb 10.0 L, Hct 30.5 L, MCV 87.6, MCH 28.7, MCHC 32.8, RDW 18.8 H, Plt Count 321, MPV 9.6, Neut % (Auto) 64.1, Lymph % (Auto) 19.1, [place] % (Auto) 12.6 H, Eos % (Auto) 2.9, Baso % (Auto) 1.1, Neut # (Auto) 4.2, Lymph # (Auto) 1.2, [place] # (Auto) 0.8, Eos # (Auto) 0.2, Baso # (Auto) 0.1, Sodium 134 L, Potassium 3.3 L, Chloride 102, Carbon Dioxide 23, A nion Gap 12.3, BUN 33 H, Creatinine 1.70 H, Estimated Creat Clear 49, Estimated GFR 42 L, Est GFR ( Amer) 51 L, Glucose 173 H, Calcium 9.1, Magnesium 1.8, Total Bilirubin 1.6 H, AST 48, ALT 34, Alkaline Phosphatase 131 H, Total Protein 7.0, Albumin 4.0, Globulin 3.0, Albumin/Globulin Ratio 1.3 I & O for Last 24 hours: Intake & Output 08/04/24 08/05/24 08/06/24 08/07/24 23:59 23:59 23:59 23:59 Intake Total 835 / 835 Output Total 1500 / 1500 1600 / 1600 Balance -1500 / -1500 -765 / -765 Weight 156 lb 9.6 oz 153 lb 9.6 oz Constitutional Constitutional: no acute distress *Routine Respiratory Exam Respiratory: Present CTA bilaterally and symmetric chest movement *Routine Cardiovascular Exam Cardiovascular: Present RRR, Normal S1 and Normal S2 *Routine Abdominal Exam Abdominal: Present soft and normoactive bowel sounds; Absent tenderness *Routine Extremities Exam Extremities: Present full ROM and normal capillary refill; Absent edema *Routine Skin Exam Skin: Present intact, dry and warm Detailed Neck Exam: Thyroids Thyroid: Absent bruit Meds Home Medications and Allergies Home Medications ?Medication ?Instructions ?Recorded ?Confirmed ?Type atorvastatin 80 mg tablet 80 mg PO HS 3 days #3 tabs 08/07/24 Rx bumetanide 2 mg tablet 3 mg (1.5 x 2 mg) PO BID 3 days #9 08/07/24 Rx tabs clopidogrel 75 mg tablet (Plavix) 75 mg PO DAILY 3 days #3 tabs 08/07/24 Rx metoprolol succinate 50 mg 50 mg PO DAILY 3 days #3 tabs 08/07/24 Rx tablet,extended release 24 hr (Toprol XL) spironolactone 50 mg tablet 50 mg PO BID 3 days #6 tabs 08/07/24 Rx tamsulosin 0.4 mg capsule 0.4 mg PO HS 3 days #3 caps 08/07/24 Rx New Prescriptions to Start Prescriptions: Jace Cortes bumetanide Jace Haney clopidogrel [Plavix] Jace Haney metoprolol succinate [Toprol XL] Jace Haney spironolactone [place],Jace tamsulosin Jace Haney Allergies Allergy/AdvReac Type Severity Reaction Status Date / Time diclofenac (DICLOFENAC) Allergy Unknown Unknown Verified 07/25/24 10:33 allergy reaction Penicillins (PENICILLINS) Allergy Unknown Hives Verified 07/25/24 10:33 propoxyphene (PROPOXYPHENE) Allergy Unknown Unknown Verified 07/25/24 10:33 allergy reaction tramadol (TRAMADOL) Allergy Unknown Vomiting Verified 07/25/24 10:33 Assessment and Plan *Assessment and plan (1) Hyperlipidemia: Status: Chronic Qualifiers: Hyperlipidemia type: unspecified Qualified Code(s): E78.5 - Hy perlipidemia, unspecified Category: Medical Code(s): E78.5 - Hyperlipidemia, unspecified (2) CAD (coronary artery disease): Status: Acute Qualifiers: Associated angina: with unspecified form of angina Coronary Disease- Associated Artery/Lesion type: [place] artery [place] vs. transplanted heart: [place] heart Qualified Code(s): I25.119 - Atherosclerotic heart disease of [place] coronary artery with unspecified angina pectoris Category: Medical Code(s): I25.10 - Atherosclerotic heart disease of [place] coronary artery without angina pectoris (3) Heart failure with reduced ejection fraction: Status: Acute Category: Medical Code(s): I50.20 - Unspecified systolic (congestive) heart failure Plan History of HFrEF EF 10-15% Medication nonadherence Repeat limited echo- EF 15 Patient denies shortness of breath this morning. Mild crackles present. Oxygen 100 on room air. No lower extremity edema present. No pleural effusions noted on CTA chest Patient has a history of medication nonadherence Recommend resuming home medications to include metoprolol succinate 50 mg p.o. daily and Aldactone 50 mg p.o. twice daily Increased Bumex to 3 mg p.o. twice daily Cannot afford Jardiance, Farxiga or Entresto. History of noncompliance with LifeVest. I offered LifeVest again to patient and he declines History of known LV thrombus Llimited echo 07/2024 negative for LV thrombu Continue Eliquis 5 mg p.o. twice daily History of coronary artery disease Troponin negative on presentation EKG without acute ischemic changes noted 3 SANAZ to mid LAD, angioplasty to the first diagonal artery, 1 SANAZ to proximal circumflex 03/2024 Continue Plavix statin and beta-lexii CV summary 08/07/2024: Resume home medications as listed. Repeat limited echo shows EF 15. Patient needs office follow-up to discuss placement of AICD once patient is on maximum tolerated guideline directed medical therapy for 90 days. Follow up in cards office this week or early next week. Cards will sign off. Cardiac meds Metoprolol succinate 50 mg daily Aldactone 50 mg p.o. twice daily Bumex 3 mg p.o. twice daily Eliquis 5 mg p.o. twice daily Plavix 75 mg p.o. daily Atorvastatin 80 mg p.o. daily
--- NOTE | 2024-08-07 10:00 | P.CONS_ITS ---
History of Present Illness History of present illness: Mr. Gonsales is a 54-year-old male never smoker history of heart failure reduced EF, CAD status post stenting, LV thrombus, CKD presented to the ER with worsening respiratory distress, CT chest found to have left lingular consolidative changes and pulmonary was called for further evaluation and management. [facility] Disclaimer: The information contained in this section may have been updated after the patient was seen, as this information can be updated by other users. Medical History (Updated 08/07/24 @ 11:56 by Monika Sheth APRN) Lung nodule Right foot pain Breath shortness Cough Fluid overload Heart failure Volume overload Hypokalemia Fluid overload Medically noncompliant Bilateral edema of lower extremity CKD stage 3a, GFR 45-59 ml/min CAD (coronary artery disease) Acute on chronic HFrEF (heart failure with reduced ejection fraction) Pneumonia Chest pain Pulmonary infiltrate Hyponatremia Bed bug bite CHF (congestive heart failure) Right atrial thrombus Acute decompensated heart failure Fatigue Nodule of left lung Severe left ventricular systolic dysfunction (LVSD) Transaminitis RENAY (acute kidney injury) Anasarca LV (left ventricular) mural thrombus Acute hypoxemic respiratory failure Cardiogenic shock Non-STEMI (non-ST elevated myocardial infarction) Acute HFrEF (heart failure with reduced ejection fraction) Pneumonia Pleural effusion, bilateral Vitamin B12 deficiency Allergic rhinitis BPH (benign prostatic hyperplasia) Hyperlipidemia Insomnia Partial tear of right Achilles tendon Surgical History History of back surgery Family History Other No significant family history Social History Smoking Status: Never smoker alcohol intake: never substance use type: former substance user and heroin current occupational status: unemployed Travel in the last 8 weeks?: None Review of Systems Constitutional Constitutional: Reports fatigue and Reports weakness Eyes Eyes: Denies itchy eyes and Denies loss of vision ENT Ears, Nose, Mouth, and Throat: Denies lip swelling, Denies throat swelling and Denies vertigo *Cardiovascular Cardiovascular: Reports dyspnea, Reports dyspnea on exertion, Reports leg edema and Denies syncope *Respiratory Respiratory: Denies change in phlegm color, Reports cough, Reports dyspnea, Reports dyspnea on exertion, Denies excessive phlegm production and Denies wheezing *Gastrointestinal Gastrointestinal: Denies abdominal pain, Denies belching and Denies cramping *Musculoskeletal Musculoskeletal: Reports back pain, Reports myalgias and Reports other (No small joint swelling or Pain) *Neurologic Neurologic: Reports system reviewed and no additional complaints, except as documented, Denies confusion, Denies loss of vision, Denies syncope, Denies vertigo and Reports weakness Psychiatric Psychiatric: Denies confusion Endocrine Endocrine: Reports fatigue and Denies heat intolerance Hematologic/Lymphatic Hematologic/Lymphatic: Denies easy bleeding and Denies lymphadenopathy Allergic/Immunologic Allergic/Immunologic: Denies itchy eyes, Denies lip swelling, Denies throat swelling and Denies wheezing Pulmonology Exam Inpatient Vital signs and Labs for Last 24 Hours: Temp Pulse Resp BP Pulse Ox O2 Del Method 97.7 F 83 16 121/66 100 Room Air 08/07/24 04:00 08/07/24 08:00 08/07/24 08:00 08/07/24 08:00 08/07/24 08:00 08/07/24 09:38 Laboratory Results - last 24 hr 08/06/24 15:15: WBC 9.1, RBC 3.66 L, Hgb 10.7 L, Hct 32.4 L, MCV 88.5, MCH 29.2, MCHC 33.0, RDW 18.6 H, Plt Count 428 H, MPV 9.9, Neut % (Auto) 69.9, Lymph % (Auto) 16.1, [place] % (Auto) 12.0 H, Eos % (Auto) 1.2, Baso % (Auto) 0.5, Neut # (Auto) 6.4, Lymph # (Auto) 1.5, [place] # (Auto) 1.1 H, Eos # (Auto) 0.1, Baso # (Auto) 0.1, Sodium 137, Potassium 3.6, Chloride 104, Carbon Dioxide 18 L, Anion Gap 18.6 H, BUN 38 H, Creatinine 1.80 H, Estimated Creat Clear 53, Estimated GFR 40 L, Est GFR ( Amer) 48 L, Glucose 146 H, Calcium 9.2, Magnesium 2.0, T otal Bilirubin 2.5 H, AST 57, ALT 45, Alkaline Phosphatase 130 H, Troponin I 0.03, NT-Pro-B Natriuret Pep 6020 H, Total Protein 7.5, Albumin 4.3, Globulin 3.2, Albumin/Globulin Ratio 1.3, Lipase 81, Procalcitonin 0.115 08/06/24 16:34: Urine Color Yellow, Urine Appearance Clear, Urine pH 5.5, Ur Specific [place] 1.010, Urine Protein Negative, Urine Glucose (UA) Negative, Urine Ketones Negative, Urine Blood Negative, Urine Nitrate Negative, Urine Bilirubin Negative, Urine Urobilinogen 0.2, Ur Leukocyte Esterase Negative, Urine RBC None, Urine WBC Occasional, Ur Squamous Epith Cells Occasional, Urine Bacteria None 08/07/24 06:06: WBC 6.5 D, RBC 3.48 L, Hgb 10.0 L, Hct 30.5 L, MCV 87.6, MCH 28.7, MCHC 32.8, RDW 18.8 H, Plt Count 321, MPV 9.6, Neut % (Auto) 64.1, Lymph % (Auto) 19.1, [place] % (Auto) 12.6 H, Eos % (Auto) 2.9, Baso % (Auto) 1.1, Neut # (Auto) 4.2, Lymph # (Auto) 1.2, [place] # (Auto) 0.8, Eos # (Auto) 0.2, Baso # (Auto) 0.1, Sodium 134 L, Potassium 3.3 L, Chloride 102, Carbon Dioxide 23, Anion Gap 12.3, BUN 33 H, Creatinine 1.70 H, Estimated Creat Clear 49, Estimated GFR 42 L, Est GFR ( Amer) 51 L, Glucose 173 H, Calcium 9.1, Magnesium 1.8, Total Bilirubin 1.6 H, AST 48, ALT 34, Alkaline Phosphatase 131 H, Total Protein 7.0, Albumin 4.0, Globulin 3.0, Albumin/Globulin Ratio 1.3 I & O for Labs for Last 24 Hours: Intake & Output 08/04/24 08/05/24 08/06/24 08/07/24 23:59 23:59 23:59 23:59 Intake Total 835 / 835 Output Total 1500 / 1500 1600 / 1600 Balance -1500 / -1500 -765 / -765 Weight 156 lb 9.6 oz 153 lb 9.6 oz Constitutional: Present mild distress Head: Present normocephalic and atraumatic ENT: Present normal exam, normal oropharynx and mucous membranes moist Neck: Present normal inspection and full ROM Respiratory: Present able to speak in complete sentences; Absent prolonged expiratory phase, respiratory distress, wheezes or diminished air movement Cardiac: Present S1/S2, Tachycardia and radial pulses present GI: Present soft and distention; Absent tenderness or guarding Skin: Present intact; Absent cyanosis or jaundice Neuro: Present alert, awake and oriented x 3 Extremities: Present normal inspection; Absent clubbing or cyanosis Psychiatric: Present normal affect and cooperative Meds Home Medications and Allergies Home Medications ?Medication ?Instructions ?Recorded ?Confirmed ?Type atorvastatin 80 mg tablet 80 mg PO HS 30 days #30 tabs 08/07/24 Rx bumetanide 2 mg tablet 3 mg (1.5 x 2 mg) PO BID 3 days #9 08/07/24 Rx tabs clopidogrel 75 mg tablet 75 mg PO DAILY 30 days #30 tabs 08/07/24 Rx metoprolol succinate 50 mg 50 mg PO DAILY 30 days #30 tabs 08/07/24 Rx tablet,extended release 24 hr (Toprol XL) spironolactone 50 mg tablet 50 mg PO BID 30 days #60 tabs 08/07/24 Rx tamsulosin 0.4 mg capsule 0.4 mg PO HS 30 days #30 caps 08/07/24 Rx New Prescriptions to Start Prescriptions: Jace Cortes bumetanide Jace Haney clopidogrel Jace Haney metoprolol succinate [Toprol XL] Jace Haney spironolactone Jace Haney tamsulosin Jace Haney Allergies Allergy/AdvReac Type Severity Reaction Status Date / Time diclofenac (DICLOFENAC) Allergy Unknown Unknown Verified 07/25/24 10:33 allergy reaction Penicillins (PENICILLINS) Allergy Unknown Hives Verified 07/25/24 10:33 propoxyphene (PROPOXYPHENE) Allergy Unknown Unknown Verified 07/25/24 10:33 allergy reaction tramadol (TRAMADOL) Allergy Unknown Vomiting Verified 07/25/24 10:33 Results Laboratory Findings 08/07/24 06:06 08/07/24 06:06 Abnormal lab findings: Abnormal Labs 08/06/24 08/07/24 15:15 06:06 RBC 3.66 L 3.48 L Hgb 10.7 L 10.0 L Hct 32.4 L 30.5 L RDW 18.6 H 18.8 H Plt Count 428 H [place] % (Auto) 12.0 H 12.6 H [place] # (Auto) 1.1 H Sodium 134 L Potassium 3.3 L Carbon Dioxide 18 L Anion Gap 18.6 H BUN 38 H 33 H Creatinine 1.80 H 1.70 H Estimated GFR 40 L 42 L Est GFR ( Amer) 48 L 51 L Glucose 146 H 173 H Total Bilirubin 2.5 H 1.6 H Alkaline Phosphatase 130 H 131 H NT-Pro-B Natriuret Pep 6020 H Assessment and Plan *Assessment and plan (1) Lung nodule: Status: Acute Category: Medical Code(s): R91.1 - Solitary pulmonary nodule Plan Mr. Gonsales is a 54-year-old male never smoker history of heart failure reduced EF, CAD status post stenting, LV thrombus, CKD presented to the ER with worsening respiratory distress, CT chest found to have left lingular consolidative changes and pulmonary was called for further evaluation and management. CTA on admission left lingular airspace disease which appeared to be significantly improved with respect to the size compared to CT from March 2024. No significant mediastinal or hilar lymphadenopathy noted. The previously noted left right-sided effusion near completely resolved. Serum fungal serologies, histoplasma antibody and beta glucan negative from May 2024 On this visit patient denies fevers, denies chills, denies night sweats, denies hemoptysis, denies weight loss and denies loss of appetite. Overall the nodule appears more like an infection which is resolving at this point of time. Plan: 3-month follow-up CT chest without contrast to be scheduled for end of October 2024. Ordered. Will follow the patient in the clinic with the CT scan. No need for antibiotics or stress from pulmonary standpoint for the noted left lingular nodular opacity
--- NOTE | 2024-08-07 11:23 | HMH.PTEV ---
Physical Therapy Evaluation Rehab PT IP Evaluation Start: 08/07/24 09:26 Freq: ONCE Status: Active Protocol: Document 08/07/24 09:50 DARY (Rec: 08/07/24 11:23 PHODOUGLAS [id number]) Subjective/History History History Manuel Jo is a 54-year- old male with a medical history significant for HFrEF (LVEF 15 to 20%), CAD with 5 stents, LV thrombus, CKD stage III, BPH, medical nonadherence who presents with worsening abdominal distention, shortness of breath over the past day. Pt does have housing insecurity, and likely also fears further compromise of his HFrEF at home. Frequent visitor to our facility, and finds solace here. He states that he has been living with his friend and is independent with all mobility and ADLs at baseline. Subjective Subjective Pt presents supine in bed and is alert and oriented x3. He is willing to participate with PT/OT this am. He does not verbally c/o pain at this time . He states that he has been moving around and using the bathroom this morning. Pt returned to sitting at EOB with call light in reach. Pt completed 1 flight of stairs with PT/OT. [facility] How much help from another person do you currently need... Turning from your back to your side None while in a flat bed without using bedrails? Moving from lying on back to sitting on None the side of a flat bed without using bedrails? Moving to and from a bed to a chair ( None including a wheelchair)? Standing up from a chair using your arms None ? (e.g., wheelchair, bedside chair) Walking in hospital room? None Climbing 3-5 steps with a railing? None Mobility Score 24 Mobility Level [facility] Mobility Calculator Mobility 8 Walk 250 feet or more Rehab PT IP Eval Objective Appearance Patient Behavior Appropriate,Cooperative Patient Orientation Person,Place,Time Difficulty following instructions none Speech Pattern Clear,Appropriate Ambulation Patient Able to Ambulate Yes Ambulation Observation IP General Gait Pattern Observation No Deviations/Normal Ambulation Distance (feet) 100 Ambulation Assistive Device None Ambulation Ability Contact Guard/Hand Hold Balance Ability to Arise Able, w/o using arms Sitting Balance Steady, safe Standing Balance Narrow stance w/o support Dynamic Sitting Balance Ability Normal Dynamic Standing Balance Ability Normal Transfers Bed Transfer Ability Independent Sit to Stand Bed Transfer Ability Independent Rehab PT IP prob,goals,plan Problems Date of Evaluation: 08/07/24 Discharge Plan PT Discharge Plan Patient is currently most appropriate to d/c home once medically stable for d/c. Skilled acute therapy is not currently indicated is patient is independent with all mobility and stairs. Eval Complexity Eval Charge Codes 48818 - High Complexity PHYSICIAN CERTIFICATION: I certify the specified therapy services for Manuel Gonsales are required, authorized, and reviewed every 30 days.
[2024-08-07 12:00] VITALS: BP 102/71; PULSE 70; RESP 16; TEMP 36.6; O2SAT 100
--- NOTE | 2024-08-07 12:30 | HMH.OTEV ---
OT Inpatient Evaluation Rehab OT IP Evaluation Start: 08/07/24 09:28 Freq: ONCE Status: Active Protocol: Document 08/07/24 12:26 [facility] (Rec: 08/07/24 12:30 [facility] [id number]) Rehab OT IP Assessment Subjective History Manuel Jo is a 54-year- old male with a medical history significant for HFrEF (LVEF 15 to 20%), CAD with 5 stents, LV thrombus, CKD stage III, BPH, medical nonadherence who presents with worsening abdominal distention, shortness of breath over the past day. Pt does have housing insecurity, and likely also fears further compromise of his HFrEF at home. Frequent visitor to our facility, and finds solace here. He states that he has been living with his friend and is independent with all funcitonal mobility and ADLs at baseline. Subjective Pt presents supine in bed and is alert and oriented x3. He is willing to participate with PT/OT this am. He does not verbally c/o pain at this time . He states that he has been moving around and using the bathroom this morning. Pt returned to sitting at EOB with call light in reach. Pt completed 1 flight of stairs with PT/OT. Objective Patient Orientation Person,Place,Birthday Right Upper Extremity Gross ROM WFL Left Upper Extremity Gross ROM WFL Bed Mobility bed mobility-scooting,bed mobility - supine/sit Assist Level Supervision/Stand by Transfer Training Sit/Stand Transfer Assist Level Supervision/Stand by Chair Transfer Technique Sit to/from Ambulatory Chair Transfer Assistive Devices Rolling Walker Lower Body Dressing Ability Standby Assistance Rehab OT IP prob,goals,plan Problems Date of Evaluation: 08/07/24 Rehab Potential Rehab Potential Innapropriate for Skilled Therapy Discharge Plan OT Discharge Plan Pt appears to be at his baseline with functional transfers and ADL independence . Pt can discharge home once medically stable per physician . Eval Complexity Eval Charge Codes 66704 - Moderate Complexity PHYSICIAN CERTIFICATION: I certify the specified therapy services for Manuel Tony Ilda are required, authorized, and reviewed every 30 days.
--- NOTE | 2024-08-07 14:31 | PC.NURSE ---
Ramon called for a ride to [facility]. Called [facility] at [phone] with no answer.
--- NOTE | 2024-08-07 23:46 | CA_ITS ---
APPROVED REPORT EXAM: Limited 2D Echocardiogram with contrast Paint Mixer: Larissa Brown CRT Ht: 5 ft 8 in Wt: 156lbs BSA: 1.84 BP: 123/69 mmHg Indications: EF CHECK, EF 10-15% 05/19/24 ECHO, HX of LV thrombus, CM, stents, non compliant, smoker, cp Echo Enhancing Agent Indication: Rule out thrombus Agent(s) / Amount(s) Used: Definity 2 cc Comments: Definity given M-Mode Dimensions RVDd 3.15 cm (0.9-2.6) LA Diam 4.34 cm (1.9-4.0) LVDd 5.74 cm (3.5-5.7) LVDs 5.39 cm (3.5-5.7) IVSd 1.45 cm (0.6-1.1) PWd 0.93 cm (0.6-1.1) EF (Teich) 13.50% FS 6.10% EDV (Teich) 162.60 mL ESV (Teich) 140.70 mL Other Information Study Quality: Fair Conclusion This is a limited TTE to evaluate systolic function. Limited windows are obtained. The left ventricle is severely dilated. There is a severe reduction in LV systolic function. There is severe global hypokinesis present. The septal and inferoseptal LV rivera are akinetic. LVEF is 15%. The right ventricle is moderately to severely dilated with moderate reduction in RV function. Administration of ultrasound enhancing agent demonstrates no evidence of LV thrombus. Compared to prior study from 05/21/2024, there is no significant change. Electronically signed by : Es Bustillo MD 08/07/2024 11:35:01
--- NOTE | 2024-08-08 10:03 | SW/DCPLANNER ---
Spoke with patient on the phone. Patient stated that he is doing alright. Patient stated that he is aware of his upcoming appointments. Patient stated that he got his new medicines delivered to him. Patient stated that he has no concerns or questions at this time. Rahel Harris
== END 2024-08-07 14:52 | disposition home or self-care (01) ==
LOC: ER 19:33 → 2ND 19:55
PROVIDERS: Physician Assistant; Admitting Provider Student in an Organized Health Care Education/Training Program; Emergency Provider Student in an Organized Health Care Education/Training Program; PCP Nurse Practitioner Family; Visit Provider Student in an Organized Health Care Education/Training Program
DX: I50.23 Acute on chronic systolic (congestive) heart failure (principal); N18.31 Chronic kidney disease, stage 3a; I25.10 Atherosclerotic heart disease of native coronary artery without angina pectoris; I24.0 Acute coronary thrombosis not resulting in myocardial infarction; N40.0 Benign prostatic hyperplasia without lower urinary tract symptoms; R91.1 Solitary pulmonary nodule; E78.5 Hyperlipidemia, unspecified; Z59.00 Homelessness unspecified; F17.210 Nicotine dependence, cigarettes, uncomplicated; I25.2 Old myocardial infarction; Z91.141 Patient's other noncompliance with medication regimen due to financial hardship; Z79.01 Long term (current) use of anticoagulants; Z95.5 Presence of coronary angioplasty implant and graft; Z59.811 Housing instability, housed, with risk of homelessness; Z59.82 Transportation insecurity
CPT/HCPCS: 96374; 96375; 36415; 71275; 74177; 80053; 81001; 83690; 83735; 83880; 84145; 84484; 85025; 93005; 93308; 97163; 97166; 99291; G0378; J1938; J1939; Q9957; Q9967

== ENCOUNTER 2024-09-19 13:09 | Outpatient (CLI) | payer MEDICAID, SELFPAY ==
--- NOTE | 2024-09-19 13:13 | XR_ITS ---
FINAL REPORT CLINICAL HISTORY: Left shoulder pain, no trauma COMPARISON: None FINDINGS: LEFT SHOULDER Three views of the left shoulder were obtained. There is no acute fracture or dislocation. Visualized joint spaces are normally aligned. Soft tissues are unremarkable. There is scarring noted in the periphery of the left lung. IMPRESSION: No acute bony abnormality. Reviewed, Interpreted and Dictated by Maco Mistry MD Transcribed by Awa Kan Authenticated and [facility]
== END 2024-09-19 23:59 | disposition home or self-care (01) ==
LOC: RAD 13:11
PROVIDERS: PCP Nurse Practitioner Family; Visit Provider Nurse Practitioner Family
DX: M25.512 Pain in left shoulder (principal); J98.4 Other disorders of lung
CPT/HCPCS: 73030

== ENCOUNTER 2024-10-03 01:09 | Emergency (ER) | payer MEDICARE, MEDICAID, SELFPAY ==
[2024-10-03] VITALS (7 sets, daily range): BP systolic 102–138; BP diastolic 52–83; PULSE 68–78; RESP 12–18; TEMP 36.4–36.9; O2SAT 97–99; BMI 26.1
--- NOTE | 2024-10-03 01:02 | ED_ITS ---
Discharge Plan Disposition Patient Disposition: Home, Self-Care Prescriptions Prescriptions: New lidocaine 5 % adhesive patch,medicated 1 patch topical DAILY PRN (Reason: pain) Qty: 30 0RF Rx Instructions: leave on most painful area for up to 12 hrs No Action dapagliflozin propanediol [Farxiga] 10 mg tablet 10 mg PO DAILY Qty: 90 3RF bumetanide 2 mg tablet 3 mg PO .COMPLEX Qty: 180 3RF Rx Instructions: 3 mg orally twice daily at 8am and 4 pm; metoprolol succinate 100 mg tablet extended release 24 hr 100 mg PO DAILY Qty: 90 3RF spironolactone 50 mg tablet 50 mg PO .COMPLEX Qty: 180 5RF Rx Instructions: 50 mg orally twice daily at 8am and 4 pm; clopidogrel 75 mg tablet 75 mg PO DAILY Qty: 90 3RF atorvastatin 80 mg tablet 80 mg PO HS Qty: 90 3RF tamsulosin 0.4 mg capsule 0.4 mg PO HS 30 Days Qty: 30 0RF Referrals Follow up/Referrals: Provider,Referral, MD [Primary Care Provider, Medical] - See instructions Activity Restrictions/Add. Instructions Additional Instructions/Restrictions: Please follow-up with your primary care provider. Please return to the emergency department if you develop any new or worsening symptoms or become concerned for your health. Clinical Impressions Clinical Impression: Left-sided chest wall pain Print Language Print Language: Arabic Discharge ED Provider: Murray Brown General Adult HPI General Chief complaint: Chest Pain Stated complaint: chest pain Time Seen by Provider: 10/03/24 01:12 History of Present Illness HPI narrative: D4-year-old male with history of heart failure, coronary artery disease, CKD presents for sharp left-sided chest pain. He reports he first noticed it about 4 days ago. It has been present on and off but tonight when he laid down it became sharp and severe. He reports it is tender to palpation. Worse with coughing and deep breathing. Related Data Previous Rx's ?Medication ?Instructions ?Recorded atorvastatin 80 mg tablet 80 mg PO HS #90 tabs 08/10/ 5 clopidogrel 75 mg tablet 75 mg PO DAILY #90 tabs 0525 tamsulosin 0.4 mg capsule 0.4 mg PO HS 30 days #30 cap s 08/10/24 bumetanide 2 mg tablet 3 mg (1.5 x 2 mg) PO .COMPLE X #180 10/01/24 tabs dapagliflozin propanediol 10 mg 10 mg PO DAILY #90 tab s 10/01/24 tablet (Farxiga) metoprolol succinate 100 mg 100 mg PO DAILY #90 tabs 0 10/01/24 tablet,extended release 24 hr spironolactone 50 mg tablet 50 mg PO .COMPLEX #180 tab s 10/01/24 lidocaine 5 % topical patch 1 patch topical DAILY PRN pain #30 10/03/24 ea Allergies Allergy/AdvReac Type Severity Reaction Status Date / Time diclofenac (DICLOFENAC) Allergy Unknown Unknown Verified 10/01/24 13:34 allergy reaction Penicillins (PENICILLINS) Allergy Unknown Hives Verified 10/01/24 13:34 propoxyphene (PROPOXYPHENE) Allergy Unknown Unknown Verified 10/01/24 13:34 allergy reaction tramadol (TRAMADOL) Allergy Unknown Vomiting Ver[facility] 10/01/24 13:34 [facility] Disclaimer: The information contained in this section may have been updated after the patient was seen, as this information can be updated by other users. Medical History Lung nodule Right foot pain Breath shortness Cough Fluid overload Heart failure Volume overload Hypokalemia Fluid overload Medically noncompliant Bilateral edema of lower extremity CKD stage 3a, GFR 45-59 ml/min CAD (coronary artery disease) Acute on chronic HFrEF (heart failure with reduced ejection fraction) Pneumonia Chest pain Pulmonary infiltrate Hyponatremia Bed bug bite CHF (congestive heart failure) Right atrial thrombus Acute decompensated heart failure Fatigue Nodule of left lung Severe left ventricular systolic dysfunction (LVSD) Transaminitis RENAY (acute kidney injury) Anasarca LV (left ventricular) mural thrombus Acute hypoxemic respiratory failure Cardiogenic shock Non-STEMI (non-ST elevated myocardial infarction) Acute HFrEF (heart failure with reduced ejection fraction) Pneumonia Pleural effusion, bilateral Vitamin B12 deficiency Allergic rhinitis BPH (benign prostatic hyperplasia) Hyperlipidemia Insomnia Partial tear of right Achilles tendon Surgical History History of back surgery Family History Other No significant family history Social History Smoking Status: Never smoker alcohol intake: never substance use type: former substance user and heroin current occupational status: unemployed Travel in the last 8 weeks?: None Other Medical History Have you received the Flu Vaccine for this season: No Have you received the Pneumonia Vaccine: No ROS Obtained: Yes All systems reviewed & no additional complaints except as documented Physical Exam General General appearance: alert and in no apparent distress Head Head exam: atraumatic and normocephalic Eye Eye exam: Present normal appearance, PERRL and EOMI ENT ENT exam: Present normal oropharynx and normal external ear exam Neck Neck exam: Present normal inspection and full ROM Chest Chest inspection: Present normal inspection, symmetric chest wall rise and tenderness (Focal tenderness in the left mid axillary chest) Respiratory Respiratory exam: Present normal lung sounds bilaterally; Absent respiratory distress Cardiovascular Cardiovascular exam: Present regular rate and normal rhythm Abdominal Exam Abdominal exam: Present soft; Absent distention, tenderness or guarding Extremities Exam Extremities exam: Present normal inspection; Absent edema or joint swelling Back Exam Back exam: Present normal inspection; Absent tenderness Neurological Exam Neurological exam: Present alert and oriented X3; Absent motor sensory deficit Psychiatric Psychiatric exam: Present normal affect and normal mood Skin Skin exam: Present warm, dry and normal color Lymphatic Lymphatic Findings: no adenopathy Medical Decision Making Medical Records Medical records reviewed: Yes I reviewed the patient's medical records. Screening: Per USPSTF and CDC recommendations, given the prevalence of disease in our region, it is our hospital?s policy to screen for HIV and viral Hepatitis for all patients aged 18 and over and those with ongoing risk factors. Matty Inquiry Pt receiving controlled substance: No Matty was queried for this patient: No Vital Signs: 10/03/24 01:30 10/03/24 02:01 10/03/24 02:31 Temperature 98.4 F Temperature Source Oral Pulse Rate 74 Pulse Rate [Right] 78 Respiratory Rate 18 15 14 Blood Pressure 102/59 L 108/52 L Blood Pressure [Right Arm] 135/83 Blood Pressure Mean [Right Arm] 100 Blood Pressure Position 02 Sat by Pulse Oximetry 98 98 Oxygen Delivery Method Room Air 10/03/24 02:50 10/03/24 03:02 10/03/24 04:45 Temperature 97.6 F Temperature Source Pulse Rate 68 68 68 Pulse Rate [Right] Respiratory Rate 12 Blood Pressure 110/68 138/78 Blood Pressure [Right Arm] Blood Pressure Mean [Right Arm] Blood Pressure Position 02 Sat by Pulse Oximetry 97 99 Oxygen Delivery Method 10/03/24 04:52 Temperature 97.6 F Temperature Source Oral Pulse Rate 68 Pulse Rate [Right] Respiratory Rate 16 Blood Pressure 138/78 Blood Pressure [Right Arm] Blood Pressure Mean [Right Arm] Blood Pressure Position Sitting 02 Sat by Pulse Oximetry Oxygen Delivery Method Room Air Lab Data Lab results reviewed: Yes I reviewed the patient's lab results. Lab Results 10/03/24 00:54: WBC 6.5, RBC 4.09 L, Hgb 12.3 L, Hct 36.1 L, MCV 88.3, MCH 30.1, MCHC 34.1, RDW 16.5, Plt Count 334, MPV 9.7, Neut % (Auto) 49.5, Lymph % (Auto) 31.4, [place] % (Auto) 15.1 H, Eos % (Auto) 2.9, Baso % (Auto) 0.8, Neut # (Auto) 3.2, Lymph # (Auto) 2.0, [place] # (Auto) 1.0, Eos # (Auto) 0.2, Baso # (Auto) 0.1, D-Dimer 0.51 H, Sodium 137, Potassium 3.7, Chloride 94 L, Carbon Dioxide 33 H, Anion Gap 13.7, BUN 22 H, Creatinine 1.50 H, Estimated Creat Clear 57, Estimated GFR 49 L, Est GFR ( Amer) 59, Glucose 105 H, Calcium 9.9, Total Bilirubin 0.7, AST 49, ALT 45, Alkaline Phosphatase 155 H, Troponin I 0.02, Total Protein 7.5, Albumin 4.6, Globulin 2.9, Albumin/Globulin Ratio 1.6 10/03/24 04:07: Troponin I 0.02 10/03/24 00:54 10/03/24 00:54 Orders (Tests/Meds): ED MEDICATIONS Discontinued Medications Generic Name Dose Route Start Last Admin Trade Name Abq PRN Reason Stop Dose Admin Acetaminophen 1,000 mg 10/03/24 01:12 10/03/24 01:22 Acetaminophen 500mg Tab PO 10/03/24 01:13 1,000 mg ONCE ONE Administration Cyclobenzaprine HCl 10 mg 10/03/24 03:19 10/03/24 03:25 Cyclobenzaprine 10mg Tablet PO 10/03/24 03:20 10 mg ONCE ONE Administration Lidocaine 1 each 10/03/24 01:12 10/03/24 01:22 Lidocaine 5% Transdermal Patch TD 10/03/24 01:13 1 each ONCE ONE Administration ORDERS Category Date Time Status CXR 2 view (NOT portable) [XR chest 2V] Stat Exams 10/03/24 01:12 Completed CBC w/Auto Diff [Complete Blood Count Auto Diff] Stat Lab 10/03/24 00:54 Completed CMP [Comprehensive Metabolic Panel] Stat Lab 10/03/24 00:54 Completed D-Dimer Stat Lab 10/03/24 00:54 Completed Troponin I Q3H Lab 10/03/24 00:54 Completed Troponin I Q3H Lab 10/03/24 04:07 Completed HEART Score History (anamnesis): Moderately suspicious ECG: Normal Age: 45-65 years Risk factors: Atherosclerosis history Troponin: </= normal limit HEART Score: 4 Medical Decision Narrative: 54-year-old male with history of severe heart failure, coronary artery disease, CKD presents for several days of sharp left lateral chest pain, acutely worse tonight. History was obtained via interactive discussion with patient, EMS, chart review. On arrival, patient is [afebrile, hemodynamically stable, satting appropriately, alert, oriented x4, GCS 15], moving all extremities spontaneously. Full physical exam performed and significant for focal tenderness in the left thoracic cage in the mid axillary line approximately rib 5. Patient's lower extremity edema is markedly improved from when I seen him in the past. Differential includes but is not limited to rib fracture, pleurisy, PE, ACS, pneumonia. Patient was given aspirin by EMS, given Tylenol and Robaxin and lidocaine patch for symptomatic management and correction of underlying abnormalities. Workup initiated including CBC CMP troponin D-dimer chest x-ray EKG. On re-evaluation, patient [remains afebrile, HD stable.] Laboratory workup independently interpreted by me and significant for negative initial troponin, D-dimer negative by years criteria, no significant leukocytosis. Creatinine at baseline. Imaging independently interpreted by me and significant for clear lungs bilaterally without evidence of acute fracture or pneumonia. See radiology read for full review of final results. Patient continues to have left-sided chest pain that is sharp and tender to palpation. Patient was placed in ED observation status for continuous cardiac monitoring and serial cardiac enzymes to assess need for admission. On reassessment patient was sleeping comfortably. Still does report some left- sided chest wall discomfort. Repeat troponin returns unchanged. Given negative cardiac enzymes and EKG, as well as the patient's physical exam findings of chest wall tenderness, my concern that this is cardiac chest pain is quite low. I discussed this with patient and he was agreeable to discharge with outpatient follow-up. Patient was discharged prescription for lidocaine patches. Given patient history, exam and workup, patient's presentation most likely represents chest wall pain. Procedures Risk/Benefits of Procedure(s) Were Explained: Yes Critical Care Critical Care Time Critical Care Time: No
--- NOTE | 2024-10-03 01:12 | XR_ITS ---
PROCEDURE INFORMATION: Exam: XR Chest Exam date and time: 10/03/2024 1:13 AM Age: 54 years old Clinical indication: Pain; Chest pressure; Additional info: Sharp left chest pain TECHNIQUE: Imaging protocol: Radiologic exam of the chest. Views: 2 views. COMPARISON: CT ANGIO CHEST 08/06/2024 3:57 PM FINDINGS: Lungs: No consolidation. Mild lingular scarring in region of previous consolidation. Stable right middle lobe calcified granulomas. Pleural spaces: No pleural effusion. No pneumothorax. Heart/Mediastinum: No cardiomegaly. Coronary stenting. Bones/joints: Unremarkable. IMPRESSION: No acute findings.
--- NOTE | 2024-10-03 01:14 | ECG_ITS ---
APPROVED REPORT Exam: Resting ECG HR:71 bpm ECG Measurements Heart Rate 71 AXES NE 183 P 55 QRSd 93 QRS 13 QT 409 T 131 QTc 432 Conclusion Sinus rhythm Lateral depressions and inversions with no obvious reciprocal elevations Imperfect electrical baseline, nondiagnostic Electronically signed by : ESAU REYNOLDS, 10/03/2024 13:26:33
[2024-10-03] MEDS: LIDOCAINE 5% TRANSDERMAL PATCH 1 EACH TD (01:22)
[2024-10-03] MEDS: ACETAMINOPHEN 500MG TAB 1000 MG PO (01:22)
[2024-10-03 01:34] LABS: Basophils # 0.1 K/mm3 (0-0.2); Basophils % 0.8 % (0.1-2.0); Eosinophils # 0.2 Kmm3 (0.0-0.4); Eosinophils % 2.9 % (0.1-12.0); Hematocrit 36.1 % (42.0-52.0); Hemoglobin 12.3 g/dL (14.1-18.0); Immature Granulocytes # 0.02 10^3uL; Immature Granulocytes % 0.3 %; Lymphocytes % 31.4 % (10-50); Mean Corpuscular HGB Conc 34.1 g/dL (31.8-35.4); Mean Corpuscular Hemoglobin 30.1 pg (27.0-31.2); Mean Corpuscular Volume 88.3 fl (80-94); Mean Platelet Volume 9.7 fl (7.4-10.4); Monocytes % 15.1 % (1.7-9.3); Neutrophils # 3.2 K/mm3 (1.8-7.8); Neutrophils % 49.5 % (37.0-80.0); Nucleated Red Blood Cells # 0 10^3/uL; Nucleated Red Blood Cells % 0 %; Platelet Count 334 K/mm3 (142-424); Red Blood Count 4.09 M/mm3 (4.60-6.20); Red Cell Distribution Width 16.5 % (11.5-17.5); Red Cell Distribution Width-SD 53.3 fL; White Blood Count 6.5 K/mm3 (4.8-10.8)
[2024-10-03 02:05] LABS: D-Dimer 0.51 ug/mL (0.0-0.5)
[2024-10-03 02:34] LABS: Alanine Aminotransferase 45 U/L (12-78); Albumin Level 4.6 g/dl (3.5-5.0); Albumin/Globulin Ratio 1.6 (1.1-1.8); Alkaline Phosphatase 155 U/L (38-126); Anion Gap 13.7 mEq/L (5-15); Aspartate Amino Transferase 49 U/L (17-59); Bilirubin,Total 0.7 mg/dl (0.2-1.3); Blood Urea Nitrogen 22 mg/dl (9-20); Calcium 9.9 mg/dl (8.4-10.2); Carbon Dioxide 33 mmol/L (22.0-30.0); Chloride 94 mmol/L (98-107); Creatinine Clearance Estimated 57 mL/min (50-200); Estimated Glomerular Filt Rate 49 ml/min (>60); GFR (African American) 59 ML/MIN (>60); Globulin 2.9 g/dL (1.3-3.2); Glucose 105 mg/dl (74-100); Potassium 3.7 mmoL/L (3.5-5.1); Sodium 137 mmol/L (136-145); Total Protein,Serum 7.5 g/dl (6.3-8.2)
[2024-10-03 02:46] LABS: Troponin I 0.02 ng/ml (0.00-0.034)
[2024-10-03] MEDS: CYCLOBENZAPRINE 10MG TABLET 10 MG PO (03:25)
[2024-10-03 04:35] LABS: Troponin I 0.02 ng/ml (0.00-0.034)
== END 2024-10-03 05:06 | disposition home or self-care (01) ==
PROVIDERS: Emergency Provider Emergency Medicine
DX: R07.89 Other chest pain (principal)
CPT/HCPCS: 71046; 80053; 84484; 85025; 85378; 93005; 99284

== ENCOUNTER 2024-10-17 11:04 | Outpatient (CLI) | payer MEDICARE, MEDICAID, SELFPAY ==
[2024-10-17 20:34] LABS: Hematocrit 36.7 % (42.0-52.0); Hemoglobin 12.6 g/dL (14.1-18.0); Immature Granulocytes % 0.3 %; Mean Corpuscular HGB Conc 34.3 g/dL (31.8-35.4); Mean Corpuscular Hemoglobin 30.7 pg (27.0-31.2); Mean Corpuscular Volume 89.5 fl (80-94); Nucleated Red Blood Cells % 0 %; Platelet Count 389 K/mm3 (142-424); Red Blood Count 4.10 M/mm3 (4.60-6.20); Red Cell Distribution Width-SD 53.0 fL; White Blood Count 6.7 K/mm3 (4.8-10.8)
[2024-10-17 20:56] LABS: Alanine Aminotransferase 46 U/L (12-78); Albumin Level 5.1 g/dl (3.5-5.0); Albumin/Globulin Ratio 1.5 (1.1-1.8); Alkaline Phosphatase 140 U/L (38-126); Anion Gap 18.5 mEq/L (5-15); Aspartate Amino Transferase 43 U/L (17-59); Bilirubin,Total 1.0 mg/dl (0.2-1.3); Blood Urea Nitrogen 27 mg/dl (9-20); Calcium 10.2 mg/dl (8.4-10.2); Carbon Dioxide 33 mmol/L (22.0-30.0); Chloride 89 mmol/L (98-107); Creatinine,Serum 1.80 mg/dl (0.66-1.25); Estimated Glomerular Filt Rate 40 ml/min (>60); GFR (African American) 48 ML/MIN (>60); Globulin 3.3 g/dL (1.3-3.2); Glucose 102 mg/dl (74-100); Potassium 4.5 mmoL/L (3.5-5.1); Sodium 136 mmol/L (136-145); Total Protein,Serum 8.4 g/dl (6.3-8.2)
[2024-10-17 21:12] LABS: 25-OH Vitamin D, Total 36.4 ng/mL (30-100)
[2024-10-17 21:45] LABS: Vitamin B12 326 pg/mL (239-931)
== END 2024-10-17 23:59 | disposition home or self-care (01) ==
LOC: LAB.DROPOF 10-18 12:38
PROVIDERS: PCP Family Medicine; Visit Provider Family Medicine
DX: Z12.5 Encounter for screening for malignant neoplasm of prostate (principal); N18.31 Chronic kidney disease, stage 3a; E53.8 Deficiency of other specified B group vitamins; E55.9 Vitamin D deficiency, unspecified
CPT/HCPCS: 80053; 82306; 82607; 85025; G0103

== ENCOUNTER 2024-10-23 08:29 | Outpatient (CLI) | payer MEDICARE, MEDICAID, SELFPAY ==
--- NOTE | 2024-10-23 | XR_ITS ---
FINAL REPORT CLINICAL HISTORY: lt shoulder pain, decreased rom FINDINGS: LEFT SHOULDER 2 views of the left shoulder were obtained. There is no acute fracture or dislocation. Visualized joint spaces are normally aligned. Mild degenerative changes are noted. Soft tissues are unremarkable. IMPRESSION: No acute bony abnormality. Reviewed, Interpreted and Dictated by Monse Muir MD Transcribed by Cait Love Authenticated and [facility]
== END 2024-10-23 23:59 | disposition home or self-care (01) ==
LOC: RAD 08:32
PROVIDERS: PCP Nurse Practitioner Family; Visit Provider Orthopaedic Surgery
DX: M25.512 Pain in left shoulder (principal)
CPT/HCPCS: 73030

== ENCOUNTER 2024-11-07 07:24 | Outpatient (CLI) | payer MEDICAID, SELFPAY ==
--- NOTE | 2024-11-07 | CA_ITS ---
APPROVED REPORT Exam: Pharmacologic Technologist: Nilda Richard Ht: 5 ft 7 in Wt: 159 lbs BSA: 1.83 m2 HR: 54 bpm BP: 130/69 mmHg Stress Test Details Test: Lexiscan HR Resting HR: 54 bpm Max Heart Rate (APMHR): 166.966412 bpm Max HR Achieved: 83 bpm Target HR (85% APMHR): 141.894618 bpm % of APMHR: 50.00 Recovery HR: 65 bpm BP Resting BP: 130.0/69.0 mmHg Max BP: 130.0/69.0 mmHg Recovery BP: 120.0/65.0 mmHg ECG Stress ECG Conclusion Symptoms: No shortness of air. Mild left sided chest pain. Arrhythmias/Ectopy: None ST-T Changes: EKG non-diagnostic - Lexiscan Electronically signed by : Es Bustillo MD 11/07/2024 11:43:44
--- NOTE | 2024-11-07 07:30 | NM_ITS ---
APPROVED REPORT Exam: Nuclear Stress Test Indication: Chest pain, SOB, HTN, High cholesterol, Family history, CAD Patient Location: Outpatient Stress Tech: Nilda Richard NM Tech:Bárbara James, ARRT, RT (R)(N) Ht: 5 ft 7 in Wt: 155 lbs HR: 55 bpm BP: 130/69 mmHg BSA: 1.81 m2 TID: 1.09 BMI: 24.2 History: Chest pain, SOB, HTN, High cholesterol, Family history, CAD Procedure: Patient received 0.4 mg of intravenous Lexiscan, resting heart rate 55 bpm, resting blood pressure 130/69 mmHg, with Lexiscan maximum heart rate achieved was 86 bpm which is % of the maximum predicted heart rate and blood pressure was 124/68 mmHg. With Lexiscan, patient denied any complaint of chest pain. Cardiac Stress and Resting SPECT Images: Cardiac Stress and Resting SPECT images were obtained using technetium 99m Myoview 30.8 mCi stress and 10.65 mCi at rest. Resting and stress imaging in supine and prone positions demonstrate a large sized, moderate, predominantly fixed perfusion defect in the inferior, inferoseptal, and septal LV rivera. There is a small region of reversibility towards the distal rivera. Gated imaging demonstrates mild global hypokinesis. There is moderate hypokinesis of the inferior and septal LV rivera. LVEF is calculated at 41%. Conclusion: Large sized, moderate, predominantly fixed perfusion defect in the inferior, inferoseptal, and septal LV rivera. There is a small region of reversibility towards the distal rivera. Findings are suggestive of partial reversible ischemia. Gated imaging demonstrates mild global hypokinesis. There is moderate hypokinesis of the inferior and septal LV rivera. LVEF is calculated at 41%. Electronically signed by : Es Bustillo MD 11/07/2024 11:39:36
[2024-11-07] MEDS: SODIUM CHLORIDE 0.9% 10ML SYR (RAD ONLY) 10 ML IV ×2 (09:30→09:31)
[2024-11-07] MEDS: ISOTOPE MYOVIEW (PER STUDY) 1 DOSE IV (09:31)
== END 2024-11-07 23:59 | disposition home or self-care (01) ==
LOC: RAD 07:25
PROVIDERS: PCP Nurse Practitioner Family; Visit Provider Internal Medicine
DX: R94.39 Abnormal result of other cardiovascular function study (principal); I11.0 Hypertensive heart disease with heart failure; I50.23 Acute on chronic systolic (congestive) heart failure; I51.3 Intracardiac thrombosis, not elsewhere classified; I25.10 Atherosclerotic heart disease of native coronary artery without angina pectoris; R94.31 Abnormal electrocardiogram [ECG] [EKG]; E78.00 Pure hypercholesterolemia, unspecified
CPT/HCPCS: 78452; 93016; 93017; 93018; A9502; J2785

== ENCOUNTER 2024-11-08 09:00 | Outpatient (RCR) | payer MEDICARE, MEDICAID, SELFPAY ==
--- NOTE | 2024-10-30 10:43 | HMH.OTOPEV ---
OT Inpatient Evaluation Rehab OT Outpatient Eval Start: 10/30/24 10:33 Freq: Status: Active Protocol: Document 10/30/24 10:33 RMARSHALL (Rec: 10/30/24 10:41 [id number] E-signed By Keo Fallon, OT Outpatient Therapy Subjective History Subjective History Pt is a 54 year old male who reports to therapy for initial evaluation to left shoulder. Pt reports he blacked out two months ago and fell. Since his fall, he has been experiencing significant L shoulder pain. Pt's pain is localized to the anterior aspect of left shoulder and radiates down arm. He is right hand dominant. Therapist palpates and hears audible popping when pt attempts to move left shoulder into flexion. At this time he is unable to do a MRI due to having stents ~4-5 months ago; he must wait one full year. Pt demonstrates with a decline in AROM and strength at left shoulder. Pt also reports constant pain. Pt did have a cortizone injection ~1 month ago by ortho, but did not have any relief. Pt will continued to be seen twice a week in order to address L shoulder deficits. Short term goals: 1. Pt will increase left shoulder flexion to 110 degrees in order to complete daily overhead tasks independently ~50% of the time. 2. Pt will increase L shoulder abduction to 110 degrees to complete upper body dressing independently ~ 50% of the time. 3. Pt will increase L shoulder ER/IR to 45 degrees (ER ) and 60 degrees (IR) in order to complete lower body dressing (putting on and taking off belt) independently ~50% of the time. 4. Pt will increase strength to 3+/5 throughout left shoulder in order to complete heavier household tasks ( laundry, mopping, vacuuming) independently ~50% of the time. 5. Pt will verbalize decreased pain levels at worst in L shoulder to a 6/10 in order to complete daily ADLs independently ~50% of the time. 6. Pt will demonstrate improved endurance by completing left shoulder exercises for ~20 minutes prior to rest break in order to increase his tolerance for daily work activities. 7. Pt will demonstrate independence with HEP of AAROM exercises to increase overall functional use of left shoulder in daily activities ~75% of the time. emt intermediate goals: 1. Pt will increase L shoulder flexion to 125 degrees in order to complete daily overhead tasks independently ~75% of the time. 2. Pt will increase L shoulder abduction to 120 degrees to complete upper body dressing independently ~ 75% of the time. 3. Pt will increase L shoulder ER/IR to 60 degrees (ER ) and 65 degrees (IR)in order to complete lower body dressing (putting on and taking off belt) independently ~75% of the time. 4. Pt will increase strength to 4-/5 throughout left shoulder in order to complete heavier household tasks ( laundry, mopping, vacuuming) independently ~75% of the time. 5. Pt will verbalize decreased pain levels at worst in L shoulder to a 3/10 in order to complete daily ADLs independently ~75% of the time. 6. Pt will demonstrate improved endurance by completing L shoulder exercises for ~30 minutes prior to rest break in order to increase his tolerance for daily work activities. 7. Pt will demonstrate independence with HEP of Rotator cuff strengthening exercises to increase overall functional use of L shoulder for daily activities ~90% of the time. New diagnosis of No cancer in past 12 months? Chief Complaint Pain,Stiff,Weakness Symptom Type Ache,Throb,Sharp,Dull Symptoms Relieved By Nothing Symptoms Aggravated Physical Activity,Lifting By Prior Functional None Limitations Current Functional Reaching,Lifting,Housework,Dressing,Sleeping,Recreation Limitations Activity QuickDASH Activities Please rate your ability to do the following activities in the last week by selecting the number below the appropriate response. 1. Open a tight or No difficulty new jar. 2. 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 g., wash rivera, floors). 3. Carry a shopping No difficulty bag or briefcase. 4. Wash your back. No difficulty 5. Use a knife to No difficulty cut food. 6. Recreational No difficulty activities in which you take some force or impact through your arm, shoulder, or hand (e.g., golf, hammering, tennis, etc.). 7. During the past Not at all week, to what extent has your arm, shoulder or hand problem interfered with your normal social activities with family, friends , neighbors or groups? 8. During the past Unable week, were you limited in your work or other regular daily activites as a result of your arm, shoulder or hand problem? 9. Arm, shoulder or Severe hand pain. 10. Tingling (pins Moderate and needles) in your arm, shoulder or hand. 11. During the past Severe difficulty week, how much difficulty have you had sleeping because of the pain in your arm, shoulder or hand? Quick DASH 23 OT Outpatient Assessment Impairments Problems/Impairments Palpation Tenderness,Impaired Range of Motion,Impaired Strength,Impaired Endurance,Impaired Lifting,Impaired Household Care,Impaired Recreational Activities, Impaired Work Activities,Subjective C/O Pain Prognosis Rehab Potential Good Clinical Impression Consistent with Yes Diagnosis Short Term Goals Number of Weeks see history Improve Quick Dash Yes: Activities: 20 or below Score Architectural Draftsperson Goals Number of Weeks 6 Improve Quick Dash Yes: Activities: 15 or below Score Outpatient Therapy Plan of Care Treatment Plan May Include Therapeutic Exercise Yes Including Home Exercise Program Manual Therapy Yes Techniques Neuromuscular Re- Yes education Therapeutic Yes Activities to Return to Previous Functional/Work Level ADL/Self Care Yes Education Thermal Modalities Yes Electrical Yes Stimulation Ultrasound/ Yes Phonophoresis Iontophoresis Yes Massage Yes Eval/Re-Eval Yes Frequency Times per week 2 Duration Number of Weeks 6 Addendums This patient is a No candidate for social or vocational rehab ? Patient/Guardian Yes verbally acknowledges understanding of treatment program and consents to further treatment? Patient/Guardian Yes verbally acknowledges understanding of diagnosis, prognosis and goals for treatment? Eval Complexity OT Charge 92020 - Moderate Complexity Shoulder/Elbow Eval Shoulder Objective Measurements Elbow Objective Measurements PHYSICIAN CERTIFICATION: I certify the specified therapy services for Manuel Gonsales are required, authorized, and reviewed every 30 days.
== END 2024-11-08 23:59 | disposition home or self-care (01) ==
LOC: OT 09:00
PROVIDERS: PCP Nurse Practitioner Family; Visit Provider Physician Assistant
DX: M25.512 Pain in left shoulder (principal)
CPT/HCPCS: 97014; 97110; 97140; 97166; 97530; G0283

== ENCOUNTER 2024-11-12 13:29 | Outpatient (CLI) | payer MEDICAID, SELFPAY ==
--- NOTE | 2024-11-12 13:45 | MR_ITS ---
FINAL REPORT CLINICAL HISTORY: chronic left shoulder Pain COMPARISON: None FINDINGS: Multi planar MR imaging of the left shoulder was performed. The supraspinatus tendon appears intact. There is no abnormal fluid in the subacromial/subdeltoid bursa. The anterior and posterior glenoid rosa appear intact. The biceps tendon appears intact. The acromioclavicular joint appears intact. IMPRESSION: No evidence of significant internal derangement. Reviewed, Interpreted and Dictated by Maco Mistry MD Transcribed by Steffanie Lewis Authenticated and [facility]
== END 2024-11-12 23:59 | disposition home or self-care (01) ==
LOC: RAD 13:30
PROVIDERS: PCP Nurse Practitioner Family; Visit Provider Physician Assistant
DX: M75.02 Adhesive capsulitis of left shoulder (principal)
CPT/HCPCS: 73221

== ENCOUNTER 2024-11-15 09:08 | Outpatient (CLI) | payer MEDICAID, SELFPAY ==
--- NOTE | 2024-11-15 09:30 | XR_ITS ---
FINAL REPORT CLINICAL HISTORY: history of multiple fracture COMPARISON: None FINDINGS: The lumbar spine was not evaluated. Using the right forearm, the bone mineral density of 1/3 is 0.829 g/cm2 with a T-score of 0.2, within normal limits Using the left hip, the bone mineral density of the femoral neck is 0.706 g/cm2, corresponding to a T-score of -1.6, consistent with osteopenia. Using the right hip, the bone mineral density of the femoral neck is 0.728 g/cm2, corresponding to a T-score of -1.5, consistent with osteopenia. FRAX 10 year fracture risk is 0.6% for a hip fracture and 5.3% for a major osteoporotic fracture. NOTE: T-score: Standard deviation compared with peak bone mass of young adult mean. *Following the recommendations of the International Society of Bone densitometry, classification of hip BMD is based on the lower of two T-scores; total hip or femoral neck. IMPRESSION: Diminished bone mineral density consistent with osteopenia. Reviewed, Interpreted and Dictated by Maco Mistry MD Transcribed by Tiana Leger Authenticated and [facility]
== END 2024-11-15 23:59 | disposition home or self-care (01) ==
LOC: RAD 09:09
PROVIDERS: PCP Nurse Practitioner Family; Visit Provider Family Medicine
DX: M85.88 Other specified disorders of bone density and structure, other site; R74.8 Abnormal levels of other serum enzymes; Z87.81 Personal history of (healed) traumatic fracture
CPT/HCPCS: 77080

== ENCOUNTER 2024-11-21 08:28 | Day surgery (SDC) | payer MEDICAID, SELFPAY ==
[2024-11-21] VITALS (11 sets, daily range): BP systolic 87–127; BP diastolic 50–79; PULSE 55–74; RESP 16–20; TEMP 36.6; O2SAT 95–100; BMI 25.2
--- NOTE | 2024-11-21 07:03 | IR_ITS ---
APPROVED REPORT Patient Location: Outpatient PROCEDURES Left heart catheterization Left ventriculogram Selective coronary angiogram INDICATION Known coronary artery disease, Abnormal Myoview, Angina pectoris Informed consent was obtained prior to the procedure. COMPLICATIONS NONE Estimated Blood Loss: LESS THAN 10 ML TECHNIQUE One percent lidocaine used to anesthetize the right anterior aspect of the wrist. The right radial artery was accessed via the Seldinger technique. A 6 Swiss sheath was placed in the right radial artery. 2.5 mg of Verapamil, 800 mcg of nitroglycerin, 1mg Lidocaine and 5000 U Heparin were given through the arterial sheath. The JL3 catheter was also used to perform left heart catheterization, left ventriculogram and selective coronary angiogram. At the end of the procedure the sheath was removed good hemostasis was achieved using Traclet band, patient was transferred to the postop holding area in stable condition. ANGIOGRAPHIC RESULTS The left main artery Normal The left anterior descending artery Has stents in the proximal to mid segment which are all widely patent. The midportion has 30% concentric in-stent restenosis with excellent distal transitioning The circumflex artery Nondominant with stents in the proximal to mid segment which are widely patent and free of in-stent restenosis with excellent proximal distal transitioning The right coronary artery His dominant and has proximal 10 to 20% luminal regularities The NOLAN ventriculogram reveals Reduced to 40% The left ventricular end-diastolic pressure 15 mmHg IMPRESSION Widely patent stents as described above Reduced ejection fraction Normal LVEDP Chronic renal failure PLAN 1. Medical management for coronary artery disease 2. Recommend cardiac MRI to evaluate for possible amyloidosis etc. 3. GDMT for LV dysfunction Electronically signed by : Salvador Mcgill MD 11/21/2024 14:27:06
[2024-11-21 09:42] LABS: Chloride 97 mmol/L (98-107); Sodium 135 mmol/L (136-145)
[2024-11-21 09:43] LABS: Hematocrit 36.9 % (42.0-52.0); Hemoglobin 12.8 g/dL (14.1-18.0); Immature Granulocytes % 0.6 %; Mean Corpuscular HGB Conc 34.7 g/dL (31.8-35.4); Mean Corpuscular Hemoglobin 32.2 pg (27.0-31.2); Mean Corpuscular Volume 92.7 fl (80-94); Nucleated Red Blood Cells % 0 %; Platelet Count 307 K/mm3 (142-424); Potassium 3.9 mmoL/L (3.5-5.1); Red Blood Count 3.98 M/mm3 (4.60-6.20); Red Cell Distribution Width-SD 51.6 fL; White Blood Count 8.3 K/mm3 (4.8-10.8)
[2024-11-21] MEDS: NITROGLYCERIN 800MCG/8ML SYR (CATH LAB) 800 MCG IA (09:45)
[2024-11-21] MEDS: HEPARIN 1,000 UNITS/500ML NS (CATH LAB) 3000 UNIT IV (09:45)
[2024-11-21] MEDS: LIDOCAINE 1% 10ML MDV 10 ML IJ (09:45)
[2024-11-21 09:46] LABS: Anion Gap 10.9 mEq/L (5-15); Blood Urea Nitrogen 38 mg/dl (9-20); Calcium 9.3 mg/dl (8.4-10.2); Carbon Dioxide 31 mmol/L (22.0-30.0); Creatinine Clearance Estimated 48 mL/min (50-200); Creatinine,Serum 1.80 mg/dl (0.66-1.25); Estimated Glomerular Filt Rate 40 ml/min (>60); GFR (African American) 48 ML/MIN (>60); Glucose 109 mg/dl (74-100)
[2024-11-21] MEDS: HEPARIN 1,000 UNITS/ML 10ML VIAL (CATH LAB) 5000 UNIT IV (09:46)
[2024-11-21] MEDS: VERAPAMIL 2.5MG/ML 2ML VIAL 2.5 MG IV (09:46)
[2024-11-21] MEDS: 0.9 % SODIUM CHLORIDE 500 ML 25 ML IV (09:46)
[2024-11-21] MEDS: FENTANYL 100MCG/2ML VIAL 50 MCG IV (10:09)
[2024-11-21] MEDS: MIDAZOLAM HCL 1MG/ML 5ML VIAL 1 MG IV (10:09)
--- NOTE | 2024-11-21 11:00 | SUR.PHASEII ---
report called to dequan saleh and answered all questions and given d/c instructions for pt
[2024-11-21] MEDS: IOPAMIDOL-370 (76%);100ML BOTTLE 15 ML IV (14:53)
== END 2024-11-21 13:09 | disposition home or self-care (01) ==
LOC: CATHLAB 08:29
PROVIDERS: PCP Nurse Practitioner Family; Visit Provider Internal Medicine
PROC: 4A023N7 Measurement of Cardiac Sampling and Pressure, Left Heart, Percutaneous Approach (ICD-10-PCS; CPT 93452; principal; 2024-11-21 08:45)
DX: I25.119 Atherosclerotic heart disease of native coronary artery with unspecified angina pectoris (principal); R94.39 Abnormal result of other cardiovascular function study; R94.31 Abnormal electrocardiogram [ECG] [EKG]; I25.2 Old myocardial infarction; I13.0 Hypertensive heart and chronic kidney disease with heart failure and stage 1 through stage 4 chronic kidney disease, or unspecified chronic kidney disease; I50.23 Acute on chronic systolic (congestive) heart failure; N18.31 Chronic kidney disease, stage 3a; I51.3 Intracardiac thrombosis, not elsewhere classified; E78.5 Hyperlipidemia, unspecified; Z95.5 Presence of coronary angioplasty implant and graft; Z79.01 Long term (current) use of anticoagulants; Z79.02 Long term (current) use of antithrombotics/antiplatelets; Z79.84 Long term (current) use of oral hypoglycemic drugs; Z79.51 Long term (current) use of inhaled steroids; Z79.899 Other long term (current) drug therapy; Z88.8 Allergy status to other drugs, medicaments and biological substances; Z88.5 Allergy status to narcotic agent; Z88.0 Allergy status to penicillin
CPT/HCPCS: 80048; 85025; 93458; 99152; C1725; C1769; J1200; J1644; J2003; J3010; J7040; Q9967

== ENCOUNTER 2024-11-29 09:34 | Outpatient (CLI) | payer MEDICAID, SELFPAY ==
--- NOTE | 2024-11-29 09:46 | XR_ITS ---
FINAL REPORT TECHNIQUE: Chest PA & Lateral CLINICAL HISTORY: Chest pain, cough COMPARISON: 07/06/2024 FINDINGS: 2 views of the chest were performed. The heart size is normal. The mediastinum is within normal limits. There is scarring in the left perihilar region. There is no acute cardiopulmonary process. There are no pleural effusions. There is no pneumothorax. The bony thorax appears intact. Multiple coronary stents are noted. IMPRESSION: No acute cardiopulmonary process. Reviewed, Interpreted and Dictated by Maco Mistry MD Transcribed by Awa Kan Authenticated and [facility]
[2024-11-29 10:42] LABS: Anion Gap 15.5 mEq/L (5-15); Blood Urea Nitrogen 32 mg/dl (9-20); Calcium 10.3 mg/dl (8.4-10.2); Carbon Dioxide 33 mmol/L (22.0-30.0); Chloride 91 mmol/L (98-107); Creatinine,Serum 2.10 mg/dl (0.66-1.25); Estimated Glomerular Filt Rate 33 ml/min (>60); GFR (African American) 40 ML/MIN (>60); Glucose 75 mg/dl (74-100); Potassium 4.5 mmoL/L (3.5-5.1); Sodium 135 mmol/L (136-145)
[2024-11-29 10:50] LABS: NT Pro Brain Natriuretic Pep. 326 pg/mL (0-125)
== END 2024-11-29 23:59 | disposition home or self-care (01) ==
LOC: LAB 09:37
PROVIDERS: PCP Nurse Practitioner Family; Visit Provider Physician Assistant
DX: I25.10 Atherosclerotic heart disease of native coronary artery without angina pectoris (principal); E78.5 Hyperlipidemia, unspecified; I51.89 Other ill-defined heart diseases; R93.1 Abnormal findings on diagnostic imaging of heart and coronary circulation; R05.9 Cough, unspecified
CPT/HCPCS: 36415; 71046; 80048; 83880

== ENCOUNTER 2024-11-30 08:36 | Outpatient (CLI) | payer MEDICAID, SELFPAY ==
--- NOTE | 2024-11-30 09:00 | CA_ITS ---
APPROVED REPORT EXAM: Comprehensive 2D, Doppler, and color-flow Echocardiogram Emergency Communications Officer: Eliana Crawley RT(R) Ht: 5 ft 7 in Wt: 167lbs BSA: 1.87 BP: 120/77 mmHg Indications: abn EKG, HFrEF, CAD, CHF Echo Enhancing Agent Indication: Endocardial border delineation Agent(s) / Amount(s) Used: Definity 2 cc 2D Dimensions LA Volume 19.80 mL LA Volume Index 10.59 mL/m2 (M/F) 16-34 EF AP4 36.70 % GL Strain -14.4 % M-Mode Dimensions RVDd 2.46 cm (0.9-2.6) LA Diam 3.09 cm (1.9-4.0) LVDd 5.08 cm (3.5-5.7) LVDs 4.47 cm (3.5-5.7) IVSd 0.68 cm (0.6-1.1) PWd 0.64 cm (0.6-1.1) EF (Teich) 25.80% FS 12.00% EDV (Teich) 122.70 mL ESV (Teich) 91.00 mL LV Diastology E Decel Time 293 (160-240 msec) E/A Ratio 0.55 Mitral Valve MV A Velocity 94.0 (40-130 cm/s) E/A Ratio 0.55 Left Ventricle The left ventricle is normal size. Left ventricular systolic function is moderately reduced. There is normal left ventricular wall thickness. There is moderate global hypokinesis present. The septum is asynchronous. Grade 1 diastolic dysfunction is present. LVEF is 35-40% Right Ventricle The right ventricle is normal size. The right ventricular systolic function is normal. Atria The left atrium size is normal. The right atrium size is normal. There is no color Doppler evidence of interatrial shunt. Aortic Valve The aortic valve opens well. There is no hemodynamically significant aortic valvular stenosis. No aortic regurgitation is present. Mitral Valve The mitral valve is normal in structure. No evidence of mitral valve stenosis. Trace mitral regurgitation is present. Tricuspid Valve The tricuspid valve leaflets are thin and pliable. Trace tricuspid regurgitation. There is insufficient TR jet to estimate RVSP. Pulmonic Valve The pulmonary valve is grossly normal in structure. Trace pulmonic valve regurgitation is present. Great Vessels The aortic root is normal in size. IVC is normal in size and collapses >50% with inspiration. Pericardium There is no pericardial effusion. Other Information Study Quality: Fair Conclusion Moderate reduction in LV systolic function (LVEF 35-40%). Asynchronous septum. No significant valvular stenosis or regurgitation. Electronically signed by : Es Bustillo MD 12/02/2024 14:20:01
[2024-11-30] MEDS: DEFINITY US ECHO CONTRAST 2ML INJ 2 MG IV (09:35)
== END 2024-11-30 23:59 | disposition home or self-care (01) ==
LOC: RT 08:37
PROVIDERS: PCP Family Medicine; Visit Provider Physician Assistant
DX: I50.23 Acute on chronic systolic (congestive) heart failure (principal); I25.10 Atherosclerotic heart disease of native coronary artery without angina pectoris; R94.31 Abnormal electrocardiogram [ECG] [EKG]; R93.1 Abnormal findings on diagnostic imaging of heart and coronary circulation
CPT/HCPCS: 93306; Q9957

== ENCOUNTER 2024-12-05 13:35 | Outpatient (CLI) | payer MEDICAID, SELFPAY ==
--- NOTE | 2024-12-05 13:37 | XR_ITS ---
FINAL REPORT CLINICAL HISTORY: ankle pain FINDINGS: AP, oblique, and lateral views of the right ankle were obtained. There is no fracture or dislocation. The ankle mortise is intact. Soft tissues are unremarkable. IMPRESSION: No acute osseous abnormality of the right ankle. Reviewed, Interpreted and Dictated by Giselle Reynolds MD Transcribed by Estela Hammer Authenticated and [facility]
--- NOTE | 2024-12-05 13:37 | XR_ITS ---
FINAL REPORT CLINICAL HISTORY: foot pain FINDINGS: AP, oblique and lateral views of the right foot were obtained. There is no acute fracture or dislocation. 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 There are mild degenerative changes of the first metatarsal phalangeal joint and midfoot. Soft tissues are unremarkable. IMPRESSION: Flattening of the third metatarsal head as detailed above. Reviewed, Interpreted and Dictated by Giselle Reynolds MD Transcribed by Estela Hammer Authenticated and [facility]
== END 2024-12-05 23:59 | disposition home or self-care (01) ==
LOC: RAD 13:36
PROVIDERS: PCP Family Medicine; Visit Provider Family Medicine
DX: M89.8X7 Other specified disorders of bone, ankle and foot (principal); M25.571 Pain in right ankle and joints of right foot; R29.898 Other symptoms and signs involving the musculoskeletal system
CPT/HCPCS: 73610; 73630

== ENCOUNTER 2024-12-06 09:02 | Emergency (ER) | payer MEDICARE, MEDICAID, SELFPAY ==
[2024-12-06 09:09] VITALS: BP 140/88; PULSE 78; O2SAT 98
[2024-12-06 09:11] VITALS: BP 140/88; PULSE 80; RESP 18; TEMP 36.8; O2SAT 97; BMI 25.9
--- NOTE | 2024-12-06 09:14 | HMH.EDGENADL ---
Discharge Plan Disposition Patient Disposition: Home, Self-Care Condition: Fair Prescriptions Prescriptions: No Action cholecalciferol (vitamin D3) 1,250 mcg (50,000 unit) capsule 1,250 mcg PO QWEEK bumetanide 2 mg tablet 2 mg PO BID Qty: 180 3RF spironolactone 50 mg tablet 50 mg PO BID Qty: 180 5RF metolazone 2.5 mg tablet 2.5 mg PO DAILY Qty: 30 2RF dapagliflozin propanediol [Farxiga] 10 mg tablet 10 mg PO DAILY Qty: 90 3RF metoprolol succinate 100 mg tablet extended release 24 hr 100 mg PO DAILY Qty: 90 3RF cetirizine [Allergy Relief (cetirizine)] 10 mg tablet 10 mg PO DAILY Qty: 30 2RF fluticasone propionate [Flonase Allergy Relief] 50 mcg/actuation spray,suspension 1 spray intranasal DAILY Qty: 16 0RF Rx Instructions: administer into each nostril clopidogrel 75 mg tablet 75 mg PO DAILY Qty: 90 3RF atorvastatin 80 mg tablet 80 mg PO HS Qty: 90 3RF tamsulosin 0.4 mg capsule 0.4 mg PO HS 30 Days Qty: 30 0RF Referrals Follow up/Referrals: Kimmy Mena APRN [Primary Care Provider, Family Practice] - See instructions Clinical Impressions Clinical Impression: Left against medical advice, Abdominal distension Print Language Print Language: Hebrew Discharge ED Provider: Evangelista Helton General Adult HPI General Chief complaint: Shortness of Breath/Dyspnea Stated complaint: poss fluid in stomach-sent by cardio Time Seen by Provider: 12/06/24 09:08 History of Present Illness HPI narrative: This is a 54-year-old male patient, with past medical history of hypertension, hyperlipidemia, heart failure with reduced ejection fraction, CKD, and CAD, who is presenting to the emergency department today for evaluation of anasarca. Patient was in the cardiology clinic this morning actually and the cardiology provider noticed that over the last several appointments that he has had in the clinic he has had worsening abdominal distention at every single appointment, so he was sent here for further evaluation. The patient is currently medically optimized on 2 mg of Bumex p.o. twice daily as well as 50 mg of spironolactone 50 mg twice daily and 2-1/2 mg of metolazone oral daily. On my initial evaluation the patient he tells me that he is compliant with his diuretic therapy and has also noted that his abdomen is becoming increasingly swollen. He has not noticed any jaundice or scleral icterus. He is not having any abdominal pain. He does tell me that he has experienced orthopnea over the last several weeks. Related Data Home Medications ?Medication ?Instructions ?Recorded ?Confirmed cholecalciferol (vitamin D3) 1,250 1,250 mcg PO QWEEK 11/06/24 12/06/24 mcg (50,000 unit) capsule Previous Rx's ?Medication ?Instructions ?Recorded atorvastatin 80 mg tablet 80 mg PO HS #90 tabs 08/10/24 clopidogrel 75 mg tablet 75 mg PO DAILY #90 tabs 08/10/24 tamsulosin 0.4 mg capsule 0.4 mg PO HS 30 days #30 caps 08/10/24 dapagliflozin propanediol 10 mg 10 mg PO DAILY #90 tabs 10/01/24 tablet (Farxiga) metoprolol succinate 100 mg 100 mg PO DAILY #90 tabs 10/01/24 tablet,extended release 24 hr cetirizine 10 mg tablet (Allergy 10 mg PO DAILY #30 tabs 11/23/24 Relief (cetirizine)) fluticasone propionate 50 1 spray intranasal DAILY #16 grams 11/23/24 mcg/actuation nasal spray,suspension (Flonase Allergy Relief) bumetanide 2 mg tablet 2 mg PO BID #180 tabs 11/28/24 metolazone 2.5 mg tablet 2.5 mg PO DAILY #30 tabs 11/28/24 spironolactone 50 mg tablet 50 mg PO BID #180 tabs 11/28/24 Allergies Allergy/AdvReac Type Severity Reaction Status Date / Time diclofenac (DICLOFENAC) Allergy Unknown Unknown Verified 12/06/24 08:41 allergy reaction Penicillins (PENICILLINS) Allergy Unknown Hives Verified 12/06/24 08:41 propoxyphene (PROPOXYPHENE) Allergy Unknown Unknown Verified 12/06/24 08:41 allergy reaction tramadol (TRAMADOL) Allergy Unknown Vomiting Verified 12/06/24 08:41 [facility] Disclaimer: The information contained in this section may have been updated after the patient was seen, as this information can be updated by other users. Medical History (Updated 12/06/24 @ 09:34 by Evangelista Helton DO) Abdominal ascites Abnormal findings on diagnostic imaging of heart and coronary circulation Chest pain Fatigue Lung nodule Right foot pain Breath shortness Cough Fluid overload Heart failure Volume overload Hypokalemia Fluid overload Medically noncompliant Bilateral edema of lower extremity CKD stage 3a, GFR 45-59 ml/min CAD (coronary artery disease) Acute on chronic HFrEF (heart failure with reduced ejection fraction) Pneumonia Pulmonary infiltrate Hyponatremia Bed bug bite CHF (congestive heart failure) Right atrial thrombus Acute decompensated heart failure Nodule of left lung Severe left ventricular systolic dysfunction (LVSD) Transaminitis RENAY (acute kidney injury) Anasarca LV (left ventricular) mural thrombus Acute hypoxemic respiratory failure Cardiogenic shock Non-STEMI (non-ST elevated myocardial infarction) Acute HFrEF (heart failure with reduced ejection fraction) Pneumonia Pleural effusion, bilateral Vitamin B12 deficiency Allergic rhinitis BPH (benign prostatic hyperplasia) Hyperlipidemia Insomnia Partial tear of right Achilles tendon Surgical History History of back surgery Family History Other No significant family history Social History Smoking Status: Never smoker alcohol intake: never substance use type: former substance user and heroin current occupational status: unemployed Travel in the last 8 weeks?: None Have you lived/traveled outside US in past 30 days?: No Contact w/someone who lives/traveled outside US past 30 days?: No Exposure to someone with infectious disease in past 14 days?: No Do you have a fever (greater than 100.4 F or 38 C)?: No Have you tested positive for COVID-19?: No Exposed to someone with COVID-19 in past 14 days?: No Do you have a sore throat?: No Do you have a cough?: No Do you have any weakness?: No Do you have any diarrhea?: No Are you experiencing any unusual bleeding?: No Do you have any muscle aches/pain?: No Do you have any abdominal pain?: Yes Are you experiencing loss of taste or smell?: No Other Medical History Have you received the Flu Vaccine for this season: No Have you received the Pneumonia Vaccine: No ROS Obtained: Yes Systems reviewed as appropriate & no additional complaints except as documented Physical Exam General General appearance: other (See MDM) Respiratory Respiratory exam: Present other (See MDM) Cardiovascular Cardiovascular exam: Present other (See MDM) Neurological Exam Neurological exam: Present other (See MDM) Medical Decision Making Medical Records Medical records reviewed: Yes I reviewed the patient's medical records. Screening: Per USPSTF and CDC recommendations, given the prevalence of disease in our region, it is our hospital?s policy to screen for HIV and viral Hepatitis for all patients aged 18 and over and those with ongoing risk factors. Matty Inquiry Pt receiving controlled substance: No Matty was queried for this patient: No Vital Signs: 12/06/24 09:09 12/06/24 09:11 12/06/24 09:11 Temperature 98.3 F 98.3 F Temperature Source Oral Oral Pulse Rate 78 80 Pulse Rate [Right] 80 Respiratory Rate 18 18 Blood Pressure 140/88 140/88 Blood Pressure [Left Arm] 140/88 Blood Pressure Mean [Left Arm] 105 02 Sat by Pulse Oximetry 98 97 97 Oxygen Delivery Method Room Air Room Air 12/06/24 09:19 12/06/24 09:28 Temperature 98.3 F Temperature Source Pulse Rate 80 Pulse Rate [Right] Respiratory Rate 18 Blood Pressure 140/88 Blood Pressure [Left Arm] Blood Pressure Mean [Left Arm] 02 Sat by Pulse Oximetry 97 Oxygen Delivery Method Room Air Medical Decision Narrative: In summary, this a 54-year-old male patient who is presenting from the cardiology clinic for worsening abdominal swelling over the past several months. He is on multiple diuretic therapies as outlined in the HPI portion of this note and is reportedly compliant with these therapies. Comorbidities to include past medical history of CAD, CHF, CKD, hypertension, and hyperlipidemia. On initial evaluation of the patient he was sitting upright in no acute distress and was nontoxic in appearance. He is hemodynamically stable, saturating well on room air, and is neurologically intact. On physical examination of the patient he does have abdominal distention as well as an easily reducible umbilical hernia. He has no lower extremity edema or upper extremity edema. Heart and lungs are clear to auscultation bilaterally. He is a GCS of 15 and is appropriately alert and interactive. After finishing my history with the patient and after establishing IV access the patient states that he does not want to stay here for further workup today. He states that he does not want to have to wait on the result of the CT scan and he would not be willing to undergo further workup with paracentesis, if needed. He is requesting to be discharged home AGAINST MEDICAL ADVICE. I have discussed risk and benefits with the patient. These risks include a missed diagnosis of liver cancer, potential liver failure, heart failure, shock liver, and progression to respiratory arrest and . Patient knowledges understanding of these risks and still wishes to be discharged home AGAINST MEDICAL ADVICE. I did tell the patient that we are more than happy to serve him and perform further workup on him here in the emergency department if he wishes to return at anytime. Patient signed the AMA form and left the emergency department. Vitals were stable at the time of departure. Critical Care Critical Care Time Critical Care Time: No
[2024-12-06 09:19] VITALS: O2SAT 97
--- NOTE | 2024-12-06 09:21 | PC.NURSE ---
Patient called me to the room and asked me to take his IV out. States he will just go back to [facility] type [facility] and segment office and talk to them about increasing his medicine, that he does not want to stay and wait for a CT scan. Patient states he just wants to leave. Advised I can't force him to stay in the ER and that I need him to sign paper. As I was getting paper, MD came into room. Asked patient if he would just stay and speak with MD and patient agreed.
[2024-12-06 09:28] VITALS: BP 140/88; PULSE 80; RESP 18; TEMP 36.8; O2SAT 97
== END 2024-12-06 09:30 | disposition home or self-care (01) ==
PROVIDERS: Emergency Provider Student in an Organized Health Care Education/Training Program; PCP Family Medicine
DX: R14.0 Abdominal distension (gaseous) (principal); Z53.29 Procedure and treatment not carried out because of patient's decision for other reasons
CPT/HCPCS: 99283

== ENCOUNTER 2024-12-11 14:00 | Emergency (ER) | payer MEDICARE, MEDICAID, SELFPAY ==
[2024-12-11 14:20] VITALS: BP 114/61; PULSE 75; RESP 20; TEMP 36.7; O2SAT 98; BMI 26.2
[2024-12-11 14:31] VITALS: BP 130/63; PULSE 74; O2SAT 99
--- NOTE | 2024-12-11 14:40 | PC.NURSE ---
Dr Bean at bedside
--- NOTE | 2024-12-11 14:46 | HMH.EDGENADL ---
Discharge Plan Disposition Patient Disposition: Home, Self-Care Prescriptions Prescriptions: No Action cholecalciferol (vitamin D3) 1,250 mcg (50,000 unit) capsule 1,250 mcg PO QWEEK bumetanide 2 mg tablet 2 mg PO BID Qty: 180 3RF spironolactone 50 mg tablet 50 mg PO BID Qty: 180 5RF metolazone 2.5 mg tablet 2.5 mg PO DAILY Qty: 30 2RF dapagliflozin propanediol [Farxiga] 10 mg tablet 10 mg PO DAILY Qty: 90 3RF metoprolol succinate 100 mg tablet extended release 24 hr 100 mg PO DAILY Qty: 90 3RF cetirizine [Allergy Relief (cetirizine)] 10 mg tablet 10 mg PO DAILY Qty: 30 2RF fluticasone propionate [Flonase Allergy Relief] 50 mcg/actuation spray,suspension 1 spray intranasal DAILY Qty: 16 0RF Rx Instructions: administer into each nostril clopidogrel 75 mg tablet 75 mg PO DAILY Qty: 90 3RF atorvastatin 80 mg tablet 80 mg PO HS Qty: 90 3RF tamsulosin 0.4 mg capsule 0.4 mg PO HS 30 Days Qty: 30 0RF Referrals Follow up/Referrals: Kimmy Mena APRN [Primary Care Provider, Family Practice] - See instructions Activity Restrictions/Add. Instructions Additional Instructions/Restrictions: An appointment has been made for you for tomorrow at 9 AM to follow-up with Dr. Mcgill. No evidence of any emergent medical condition namely significant full body fluid retention that would require admission for diuresis surgical emergencies in your abdomen etc. You were offered blood work to evaluate for possible organ dysfunction including kidney abnormalities but she declined this. Please return with any significant worsening of her symptoms or other concerns otherwise it is safe for you to follow-up closely with your cardiology team to follow this chronic condition you have been dealing with. There was no evidence of any intraperitoneal fluid or significant worsening of your heart compared to recent ultrasound. Clinical Impressions Clinical Impression: Abdominal distention Instructions Patient Instructions: DI for Acute Abdominal Pain Print Language Print Language: Panamanian Discharge ED Provider: Quinton Bean General Adult HPI General Chief complaint: Abdominal Pain Stated complaint: Fluid on Stomach Time Seen by Provider: 12/11/24 14:29 Mode of Arrival: Ambulatory Source of Information: Patient and Medical Record Description of Symptoms (Recalled from ER Triage Doc. by RN): Pt c/o fluid on my stomach . States he has gained 4 lbs in a couple days. He was seen here recently but left prior to draining d/t taking so long . Pt repoirts he gets SOA with little exertion. Denies any chest pain. Denies any n/v/d. History of Present Illness HPI narrative: Patient is a 54-year-old male presenting today with abdominal distention. Was here just a few days ago for the exact same complaints but left AMA prior to being worked up. Has been dealing with chronic abdominal distention for a long time is followed by cardiology on multiple diuretics. States he believes his abdomen is a bit more distended than normal. Denies any lower extremity edema. Denies any shortness of breath exertional symptoms. States in fact that his ejection fraction has gone from 15% to 40% and that his heart is doing better. No history of cirrhosis. Related Data Home Medications ?Medication ?Instructions ?Recorded ?Confirmed cholecalciferol (vitamin D3) 1,250 1,250 mcg PO QWEEK 11/06/24 12/06/24 mcg (50,000 unit) capsule Previous Rx's ?Medication ?Instructions ?Recorded atorvastatin 80 mg tablet 80 mg PO HS #90 tabs 08/10/24 clopidogrel 75 mg tablet 75 mg PO DAILY #90 tabs 08/10/24 tamsulosin 0.4 mg capsule 0.4 mg PO HS 30 days #30 caps 08/10/24 dapagliflozin propanediol 10 mg 10 mg PO DAILY #90 tabs 10/01/24 tablet (Farxiga) metoprolol succinate 100 mg 100 mg PO DAILY #90 tabs 10/01/24 tablet,extended release 24 hr cetirizine 10 mg tablet (Allergy 10 mg PO DAILY #30 tabs 11/23/24 Relief (cetirizine)) fluticasone propionate 50 1 spray intranasal DAILY #16 grams 11/23/24 mcg/actuation nasal spray,suspension (Flonase Allergy Relief) bumetanide 2 mg tablet 2 mg PO BID #180 tabs 11/28/24 metolazone 2.5 mg tablet 2.5 mg PO DAILY #30 tabs 11/28/24 spironolactone 50 mg tablet 50 mg PO BID #180 tabs 11/28/24 Allergies Allergy/AdvReac Type Severity Reaction Status Date / Time diclofenac (DICLOFENAC) Allergy Unknown Unknown Verified 12/06/24 08:41 allergy reaction Penicillins (PENICILLINS) Allergy Unknown Hives Verified 12/06/24 08:41 propoxyphene (PROPOXYPHENE) Allergy Unknown Unknown Verified 12/06/24 08:41 allergy reaction tramadol (TRAMADOL) Allergy Unknown Vomiting Verified 12/06/24 08:41 [facility] Disclaimer: The information contained in this section may have been updated after the patient was seen, as this information can be updated by other users. Medical History (Updated 12/11/24 @ 14:45 by Quinton Bean MD) Abdominal ascites Abnormal findings on diagnostic imaging of heart and coronary circulation Chest pain Fatigue Lung nodule Right foot pain Breath shortness Cough Fluid overload Heart failure Volume overload Hypokalemia Fluid overload Medically noncompliant Bilateral edema of lower extremity CKD stage 3a, GFR 45-59 ml/min CAD (coronary artery disease) Acute on chronic HFrEF (heart failure with reduced ejection fraction) Pneumonia Pulmonary infiltrate Hyponatremia Bed bug bite CHF (congestive heart failure) Right atrial thrombus Acute decompensated heart failure Nodule of left lung Severe left ventricular systolic dysfunction (LVSD) Transaminitis RENAY (acute kidney injury) Anasarca LV (left ventricular) mural thrombus Acute hypoxemic respiratory failure Cardiogenic shock Non-STEMI (non-ST elevated myocardial infarction) Acute HFrEF (heart failure with reduced ejection fraction) Pneumonia Pleural effusion, bilateral Vitamin B12 deficiency Allergic rhinitis BPH (benign prostatic hyperplasia) Hyperlipidemia Insomnia Partial tear of right Achilles tendon Surgical History History of back surgery Family History Other No significant family history Social History Smoking Status: Never smoker alcohol intake: never substance use type: former substance user and heroin current occupational status: unemployed Travel in the last 8 weeks?: None Have you lived/traveled outside US in past 30 days?: No Contact w/someone who lives/traveled outside US past 30 days?: No Exposure to someone with infectious disease in past 14 days?: No Do you have a fever (greater than 100.4 F or 38 C)?: No Have you tested positive for COVID-19?: No Exposed to someone with COVID-19 in past 14 days?: No Do you have a sore throat?: No Do you have a cough?: No Do you have any weakness?: No Do you have any diarrhea?: No Are you experiencing any unusual bleeding?: No Do you have any muscle aches/pain?: No Do you have any abdominal pain?: No Are you experiencing loss of taste or smell?: No Other Medical History Have you received the Flu Vaccine for this season: No Have you received the Pneumonia Vaccine: No ROS Obtained: Yes All systems reviewed & no additional complaints except as documented Physical Exam General General appearance: alert Respiratory Respiratory exam: Present normal lung sounds bilaterally; Absent respiratory distress Cardiovascular Cardiovascular exam: Present regular rate and normal rhythm Abdominal Exam Abdominal exam: Present soft and distention (Very soft abdomen no positive fluid sign no evidence of any cirrhotic sequela on exam very mildly distended); Absent tenderness Neurological Exam Neurological exam: Present alert and oriented X3 Medical Decision Making Medical Records Screening: Per USPSTF and CDC recommendations, given the prevalence of disease in our region, it is our hospital?s policy to screen for HIV and viral Hepatitis for all patients aged 18 and over and those with ongoing risk factors. Matty Inquiry Pt receiving controlled substance: No Vital Signs: 12/11/24 14:20 12/11/24 14:31 Temperature 98.0 F Temperature Source Oral Pulse Rate 74 Pulse Rate [Right] 75 Respiratory Rate 20 Blood Pressure 130/63 Blood Pressure [Left Arm] 114/61 Blood Pressure Mean [Left Arm] 78 Blood Pressure Source [Left Arm] Automatic Cuff 02 Sat by Pulse Oximetry 98 99 Oxygen Delivery Method Room Air Orders (Tests/Meds): ORDERS Category Date Time Status POCUS Point of Care (ER Only) Stat Exams 12/11/24 14:33 Ordered Medical Decision Narrative: 54-year-old with above history and physical. He has no evidence of any lower extremity edema he is breathing comfortably lying flat oxygen saturation to 100% respiratory exam is normal abdominal exam is soft nontender no positive fluid wave bedside ultrasound showed an ejection fraction near normal IVC is completely decompressed less than 0.5 cm with 100 send respirophasic variation no evidence of any intraperitoneal fluid or significant soft tissue fluid or ascites noted. Exam is very benign not concerning for surgical emergency. I offered him labs but he states he had regular labs done recently. I told him there is no indication emergently for a CT scan or admission for IV diuresis he understood this. 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 Patient is discharged in stable condition. Critical Care Critical Care Time Critical Care Time: No
[2024-12-11 14:57] VITALS: BP 130/63; PULSE 63; RESP 15; TEMP 36.8; O2SAT 96
== END 2024-12-11 14:59 | disposition home or self-care (01) ==
PROVIDERS: Emergency Provider Student in an Organized Health Care Education/Training Program; PCP Family Medicine
DX: R14.0 Abdominal distension (gaseous) (principal)
CPT/HCPCS: 99284

== ENCOUNTER 2024-12-18 14:41 | Outpatient (CLI) | payer MEDICARE, MEDICAID, SELFPAY ==
--- NOTE | 2024-12-18 15:00 | CT_ITS ---
FINAL REPORT TECHNIQUE: Pre-and postcontrast axial imaging of the abdomen and pelvis was obtained.This study was performed with techniques to keep radiation doses as low as reasonably achievable, (ALARA). Individualized dose reduction technique using automated exposure control or adjustment of mA and/or kV according to the patient's size were employed. CLINICAL HISTORY: ascites COMPARISON: 08/06/2024 FINDINGS: The lung bases are clear. The liver is homogeneous. The gallbladder is contracted. The spleen, adrenal glands, and pancreas are unremarkable. There is no hydronephrosis or solid renal mass. On precontrast imaging, no renal stones are identified. Abdominal GI tract is unremarkable. There is no evidence of small bowel obstruction. The appendix is normal. The previously seen enteritis has resolved. The prostate and urinary bladder are unremarkable. Bilateral fat-containing inguinal hernias are seen, right greater than left. The previously identified ascites is no longer present. The anterolateral wall of the urinary bladder on the right extends into the right inguinal hernia. No acute osseous abnormalities identified. IMPRESSION: Resolved ascites. No acute abnormality. Reviewed, Interpreted and Dictated by Giselle Reynolds MD Transcribed by Estela Hammer Authenticated and [facility]
[2024-12-18 15:50] LABS: Anion Gap 14.3 mEq/L (5-15); Blood Urea Nitrogen 47 mg/dl (9-20); Calcium 10.1 mg/dl (8.4-10.2); Carbon Dioxide 32 mmol/L (22.0-30.0); Chloride 91 mmol/L (98-107); Creatinine,Serum 2.10 mg/dl (0.66-1.25); Estimated Glomerular Filt Rate 33 ml/min (>60); GFR (African American) 40 ML/MIN (>60); Glucose 106 mg/dl (74-100); Potassium 4.3 mmoL/L (3.5-5.1); Sodium 133 mmol/L (136-145)
[2024-12-18 15:59] LABS: NT Pro Brain Natriuretic Pep. 449 pg/mL (0-125)
[2024-12-18] MEDS: SODIUM CHLORIDE 0.9% 10ML SYR (RAD ONLY) 10 ML IV (16:12)
[2024-12-18] MEDS: IOPAMIDOL-370 (76%);100ML BOTTLE 60 ML IV (16:12)
== END 2024-12-18 23:59 | disposition home or self-care (01) ==
LOC: RAD 14:42
PROVIDERS: PCP Family Medicine; Visit Provider Physician Assistant
DX: I50.23 Acute on chronic systolic (congestive) heart failure (principal); R18.8 Other ascites; R94.31 Abnormal electrocardiogram [ECG] [EKG]; I25.10 Atherosclerotic heart disease of native coronary artery without angina pectoris
CPT/HCPCS: 36415; 74178; 80048; 83880; Q9967

== ENCOUNTER 2024-12-19 09:50 | Outpatient (CLI) | payer MEDICARE, MEDICAID, SELFPAY ==
[2024-12-19 16:05] LABS: Hematocrit 39.5 % (42.0-52.0); Hemoglobin 13.5 g/dL (14.1-18.0); Immature Granulocytes % 0.5 %; Mean Corpuscular HGB Conc 34.2 g/dL (31.8-35.4); Mean Corpuscular Hemoglobin 32.5 pg (27.0-31.2); Mean Corpuscular Volume 95.2 fl (80-94); Nucleated Red Blood Cells % 0 %; Platelet Count 390 K/mm3 (142-424); Red Blood Count 4.15 M/mm3 (4.60-6.20); Red Cell Distribution Width-SD 46.9 fL; White Blood Count 8.4 K/mm3 (4.8-10.8)
[2024-12-19 16:18] LABS: Albumin Level 5.2 g/dl (3.5-5.0); Chloride 93 mmol/L (98-107); Potassium 3.8 mmoL/L (3.5-5.1); Sodium 136 mmol/L (136-145)
[2024-12-19 16:20] LABS: Amylase 123 U/L (30-110); Blood Urea Nitrogen 39 mg/dl (9-20)
[2024-12-19 16:21] LABS: Alanine Aminotransferase 73 U/L (12-78); Albumin/Globulin Ratio 1.7 (1.1-1.8); Alkaline Phosphatase 135 U/L (38-126); Anion Gap 15.8 mEq/L (5-15); Aspartate Amino Transferase 73 U/L (17-59); Bilirubin,Total 0.7 mg/dl (0.2-1.3); Calcium 10.5 mg/dl (8.4-10.2); Carbon Dioxide 31 mmol/L (22.0-30.0); Creatinine,Serum 2.10 mg/dl (0.66-1.25); Estimated Glomerular Filt Rate 33 ml/min (>60); GFR (African American) 40 ML/MIN (>60); Globulin 3.1 g/dL (1.3-3.2); Glucose 80 mg/dl (74-100); Lipase 102 U/L (23-300); Total Protein,Serum 8.3 g/dl (6.3-8.2)
== END 2024-12-19 23:59 ==
LOC: LAB.DROPOF 12-21 09:27
PROVIDERS: PCP Family Medicine; Visit Provider Family Medicine
DX: N18.31 Chronic kidney disease, stage 3a (principal); E78.5 Hyperlipidemia, unspecified; R14.0 Abdominal distension (gaseous)
CPT/HCPCS: 80053; 80074; 82150; 83690; 85025

== ENCOUNTER 2024-12-21 15:21 | Outpatient (CLI) | payer MEDICAID, SELFPAY ==
--- NOTE | 2024-12-21 15:30 | MR_ITS ---
PROCEDURE INFORMATION: Exam: MR Right Lower Extremity Other Than Joint Without and With Contrast; Foot Exam date and time: 12/21/2024 3:28 PM Age: 54 years old Clinical indication: Pain; Foot; Right; Additional info: Foot pain TECHNIQUE: Imaging protocol: Magnetic resonance imaging of the right lower extremity without and with contrast. Exam focused on the foot. Contrast material: PROHANCE; Contrast volume: 15 ml; Contrast route: IV; COMPARISON: CR XR FOOT WT BEARING RT 3V 12/05/2024 1:38 PM FINDINGS: Bones/joints: Mild 1st MTP joint osteoarthritis. Remaining skeletal structures are normal. LIGAMENTS: Lisfranc ligament: Unremarkable. No evidence of tear. TENDONS: Flexor tendons of foot: Unremarkable. No evidence of tear. Tibialis posterior tendon: Unremarkable as visualized. Peroneal tendons: Unremarkable as visualized. Extensor tendons of foot: Unremarkable. No evidence of tear. Tibialis anterior tendon: Unremarkable as visualized. Tarsal canal (Sinus tarsi): Unremarkable. Tarsal tunnel: Unremarkable. Soft tissues: Unremarkable. Plantar fascia: Unremarkable as visualized. IMPRESSION: No acute pathology. Mild 1st MTP joint osteoarthritis.
--- NOTE | 2024-12-21 16:30 | MR_ITS ---
PROCEDURE INFORMATION: Exam: MR Right Lower Extremity Joint Without and With Contrast; Ankle Exam date and time: 12/21/2024 3:28 PM Age: 54 years old Clinical indication: Pain; Ankle; Right; Additional info: Ankle pain TECHNIQUE: Imaging protocol: Magnetic resonance imaging of the right lower extremity without and with contrast. Exam focused on the ankle. Contrast material: PROHANCE; Contrast volume: 15 ml; Contrast route: IV; COMPARISON: CR XR ANKLE WT BEARING RT MIN 3V 12/05/2024 1:38 PM FINDINGS: Bones/joints: Unremarkable. No bone abnormalities. Articular cartilage is normal. No joint effusion. LIGAMENTS: Distal tibiofibular syndesmosis: Unremarkable. No tear. Anterior talofibular ligament: Unremarkable. No tear. Posterior talofibular ligament: Unremarkable. No tear. Calcaneofibular ligament: Unremarkable. No tear. Deltoid ligament complex: Unremarkable. No tear. TENDONS: Flexor tendons of foot: Unremarkable as visualized. Tibialis posterior tendon: Unremarkable as visualized. Peroneal tendons: Unremarkable as visualized. Extensor tendons of foot: Unremarkable as visualized. Tibialis anterior tendon: Unremarkable as visualized. Achilles tendon: Unremarkable as visualized. Tarsal canal (Sinus tarsi): Unremarkable. Normal signal of the fat. Tarsal tunnel: Unremarkable. Soft tissues: Unremarkable. Plantar fascia: Plantar fascia is unremarkable. IMPRESSION: Unremarkable MR ankle and hind foot.
[2024-12-21] MEDS: GADOTERIDOL INJ 20ML SYRINGE 15 ML IV (16:56)
[2024-12-21] MEDS: SODIUM CHLORIDE 0.9% 10ML SYR (RAD ONLY) 10 ML IV (16:56)
== END 2024-12-21 23:59 | disposition home or self-care (01) ==
LOC: RAD 15:21
PROVIDERS: PCP Family Medicine; Visit Provider Family Medicine
DX: M19.071 Primary osteoarthritis, right ankle and foot (principal); R29.898 Other symptoms and signs involving the musculoskeletal system
CPT/HCPCS: 73720; 73723; A9576

== ENCOUNTER 2024-12-26 09:45 | Outpatient (CLI) | payer MEDICAID, SELFPAY ==
[2024-12-26 15:57] LABS: Amylase 110 U/L (30-110); Lipase 69 U/L (23-300)
== END 2024-12-26 23:59 ==
LOC: LAB.DROPOF 12-27 11:33
PROVIDERS: PCP Family Medicine; Visit Provider Family Medicine
DX: K85.90 Acute pancreatitis without necrosis or infection, unspecified (principal)
CPT/HCPCS: 82150; 83690

== ENCOUNTER 2024-12-27 08:32 | Outpatient (CLI) | payer MEDICAID, SELFPAY ==
--- NOTE | 2024-12-27 09:00 | US_ITS ---
FINAL REPORT TECHNIQUE: Multiple transverse and longitudinal images CLINICAL HISTORY: abn alk phos/ contracted GB COMPARISON: None FINDINGS: The gallbladder shows no wall thickening, distention or stone disease. No biliary ductal dilatation is appreciated. No fluid collections are seen. Limited portions of the right liver are unremarkable. Limited portions of the right kidney are unremarkable. Pancreas is largely obscured. IMPRESSION: 1. No evidence of cholelithiasis 2. No evidence of biliary obstruction Reviewed, Interpreted and Dictated by Monse Muir MD Transcribed by Tiana Leger Authenticated and [facility]
== END 2024-12-27 23:59 | disposition home or self-care (01) ==
LOC: RAD 08:33
PROVIDERS: PCP Family Medicine; Visit Provider Family Medicine
DX: R74.8 Abnormal levels of other serum enzymes (principal); K82.0 Obstruction of gallbladder; R14.0 Abdominal distension (gaseous); R18.8 Other ascites
CPT/HCPCS: 76705

== ENCOUNTER 2024-12-28 21:45 | Emergency (ER) | payer MEDICARE, MEDICAID, SELFPAY ==
--- NOTE | 2024-12-28 21:53 | CT_ITS ---
PROCEDURE INFORMATION: Exam: CT Abdomen And Pelvis With Contrast Exam date and time: 12/28/2024 10:56 PM Age: 54 years old Clinical indication: Abdominal pain; Additional info: Right flank pain TECHNIQUE: Imaging protocol: Computed tomography of the abdomen and pelvis with contrast. Radiation optimization: All CT scans at this facility use at least one of these dose optimization techniques: automated exposure control; mA and/or kV adjustment per patient size (includes targeted exams where dose is matched to clinical indication); or iterative reconstruction. Contrast material: ISOVUE; Contrast volume: 75 ml; Contrast route: IV; COMPARISON: CT ABDOMEN PELVIS WO/W CON 12/18/2024 4:00 PM FINDINGS: Lungs: No acute finding. Right middle lobe calcified granulomas are noted. Liver: Normal. No mass. Gallbladder and biliary ducts: Normal. No calcified stones. No ductal dilation. Pancreas: Normal. No ductal dilation. Spleen: Normal. No splenomegaly. Adrenal glands: Normal. No mass. Kidneys and ureters: Normal. No hydronephrosis. Stomach and bowel: There is a small diverticulum of the 2nd portion of the duodenum. No obstruction. No mucosal thickening. Appendix: No evidence of appendicitis. Intraperitoneal space: Unremarkable. No free air. No significant fluid collection. Vasculature: There is mild calcific atherosclerotic disease. No aortic aneurysm. Lymph nodes: Unremarkable. No enlarged lymph nodes. Urinary bladder: Unremarkable as visualized. Reproductive: Unremarkable as visualized. Bones/joints: There are postsurgical changes of the lumbar spine with posterior hardware fusion at L3-L4 and interbody fusion L4-L5 and L5-S1. There is L4-L5 laminectomy. No acute fracture. Soft tissues: There are small fat containing inguinal hernias. There is a very small fat containing umbilical hernia. IMPRESSION: No acute findings.
[2024-12-28 21:59] LABS: Hematocrit 39.4 % (42.0-52.0); Hemoglobin 13.8 g/dL (14.1-18.0); Immature Granulocytes % 0.4 %; Mean Corpuscular HGB Conc 35.0 g/dL (31.8-35.4); Mean Corpuscular Hemoglobin 33.6 pg (27.0-31.2); Mean Corpuscular Volume 95.9 fl (80-94); Nucleated Red Blood Cells % 0 %; Platelet Count 365 K/mm3 (142-424); Red Blood Count 4.11 M/mm3 (4.60-6.20); Red Cell Distribution Width-SD 45.8 fL; White Blood Count 7.8 K/mm3 (4.8-10.8)
[2024-12-28 22:00] VITALS: BP 125/78; PULSE 63; RESP 15; O2SAT 98
--- NOTE | 2024-12-28 22:02 | HMH.EDGENADL ---
Discharge Plan Disposition Patient Disposition: Home, Self-Care Condition: Good Prescriptions Prescriptions: New dicyclomine 10 mg capsule 10 mg PO BID PRN (Reason: abdominal pain) Qty: 14 0RF ibuprofen 600 mg tablet 600 mg PO Q6H PRN (Reason: fever or pain) Qty: 20 0RF ondansetron 4 mg tablet,disintegrating 4 mg PO Q6H PRN (Reason: nausea and vomiting) Qty: 16 0RF No Action cholecalciferol (vitamin D3) 1,250 mcg (50,000 unit) capsule 1,250 mcg PO QWEEK bumetanide 2 mg tablet 2 mg PO BID Qty: 180 3RF spironolactone 50 mg tablet 50 mg PO BID Qty: 180 5RF dapagliflozin propanediol [Farxiga] 10 mg tablet 10 mg PO DAILY Qty: 90 3RF metoprolol succinate 100 mg tablet extended release 24 hr 100 mg PO DAILY Qty: 90 3RF cetirizine [Allergy Relief (cetirizine)] 10 mg tablet 10 mg PO DAILY Qty: 30 2RF fluticasone propionate [Flonase Allergy Relief] 50 mcg/actuation spray,suspension 1 spray intranasal DAILY Qty: 16 0RF Rx Instructions: administer into each nostril sumatriptan succinate 25 mg tablet See Rx Instructions PO .COMPLEX Qty: 14 0RF Rx Instructions: take 1 tab at onset of headache; if no relief may repeat 1 tab after at least 2 hrs; max = 4 tabs/24 hr PO Nurtec ODT 75 mg tablet,disintegrating 0RF clopidogrel 75 mg tablet 75 mg PO DAILY Qty: 90 3RF atorvastatin 80 mg tablet 80 mg PO HS Qty: 90 3RF tamsulosin 0.4 mg capsule 0.4 mg PO HS 30 Days Qty: 30 0RF Referrals Follow up/Referrals: Provider,Referral, MD [Referring, Medical] - See instructions Activity Restrictions/Add. Instructions Additional Instructions/Restrictions: Your CT scan and laboratory workup did not show any concerning findings. You are being prescribed Bentyl and ibuprofen to help with your pain. Take these as prescribed. You are also prescribed Zofran to help with nausea. If you develop any new or worsening symptoms, or if you become concerned for your health for any reason, return to the emergency department for evaluation Clinical Impressions Clinical Impression: Left lower quadrant abdominal pain Instructions Patient Instructions: DI for Acute Abdominal Pain Print Language Print Language: Pakistani Discharge ED Provider: Lux Baer General Adult HPI <Collette Sunita (ED), [employer] WORK[employer] - Last Filed: 12/28/24 23:19> General Chief complaint: Abdominal Pain Stated complaint: Lower abdominal pain Time Seen by Provider: 12/28/24 21:46 History of Present Illness HPI narrative: 54-year-old male presents via EMS for complaint of left lower quadrant pain for a week. He has seen his PCP for this and they did a scan a while back. He thinks this is a hernia. Patient has no nausea, vomiting or diarrhea. This is a constant pain. Patient is on Plavix from an [place] with stent placement in the past. Patient has no chest pain or shortness of breath at this time. No other pain. Related Data Home Medications ?Medication ?Instructions ?Recorded ?Confirmed cholecalciferol (vitamin D3) 1,250 1,250 mcg PO QWEEK 11/06/24 12/28/24 mcg (50,000 unit) capsule Previous Rx's ?Medication ?Instructions ?Recorded atorvastatin 80 mg tablet 80 mg PO HS #90 tabs 08/10/24 clopidogrel 75 mg tablet 75 mg PO DAILY #90 tabs 08/10/24 tamsulosin 0.4 mg capsule 0.4 mg PO HS 30 days #30 caps 08/10/24 dapagliflozin propanediol 10 mg 10 mg PO DAILY #90 tabs 10/01/24 tablet (Farxiga) metoprolol succinate 100 mg 100 mg PO DAILY #90 tabs 10/01/24 tablet,extended release 24 hr cetirizine 10 mg tablet (Allergy 10 mg PO DAILY #30 tabs 11/23/24 Relief (cetirizine)) fluticasone propionate 50 1 spray intranasal DAILY #16 grams 11/23/24 mcg/actuation nasal spray,suspension (Flonase Allergy Relief) bumetanide 2 mg tablet 2 mg PO BID #180 tabs 11/28/24 spironolactone 50 mg tablet 50 mg PO BID #180 tabs 11/28/24 sumatriptan succinate 25 mg tablet See Rx Instructions PO .COMPLEX 12/19/24 migraine #14 tabs dicyclomine 10 mg capsule 10 mg PO BID PRN abdominal pain 12/29/24 #14 caps ibuprofen 600 mg tablet 600 mg PO Q6H PRN fever or pain 12/29/24 #20 tabs ondansetron 4 mg disintegrating 4 mg PO Q6H PRN nausea and 12/29/24 tablet vomiting #16 tabs Allergies Allergy/AdvReac Type Severity Reaction Status Date / Time diclofenac (DICLOFENAC) Allergy Unknown Unknown Verified 12/28/24 09:26 allergy reaction Penicillins (PENICILLINS) Allergy Unknown Hives Verified 12/28/24 09:26 propoxyphene (PROPOXYPHENE) Allergy Unknown Unknown Verified 12/28/24 09:26 allergy reaction tramadol (TRAMADOL) Allergy Unknown Vomiting Verified 12/28/24 09:26 PFS <Collette Dorsey (ED), [employer] WORKER - Last Filed: 12/28/24 23:19> [facility] Disclaimer: The information contained in this section may have been updated after the patient was seen, as this information can be updated by other users. Medical History Left against medical advice Chronic HFrEF (heart failure with reduced ejection fraction) Abdominal ascites Abnormal findings on diagnostic imaging of heart and coronary circulation Chest pain Fatigue Lung nodule Right foot pain Breath shortness Cough Fluid overload Heart failure Volume overload Hypokalemia Fluid overload Medically noncompliant Bilateral edema of lower extremity CKD stage 3a, GFR 45-59 ml/min CAD (coronary artery disease) Acute on chronic HFrEF (heart failure with reduced ejection fraction) Pneumonia Pulmonary infiltrate Hyponatremia Bed bug bite CHF (congestive heart failure) Right atrial thrombus Acute decompensated heart failure Nodule of left lung Severe left ventricular systolic dysfunction (LVSD) Transaminitis RENAY (acute kidney injury) Anasarca LV (left ventricular) mural thrombus Acute hypoxemic respiratory failure Cardiogenic shock Non-STEMI (non-ST elevated myocardial infarction) Acute HFrEF (heart failure with reduced ejection fraction) Pneumonia Pleural effusion, bilateral Vitamin B12 deficiency Allergic rhinitis BPH (benign prostatic hyperplasia) Hyperlipidemia Insomnia Partial tear of right Achilles tendon Surgical History History of back surgery Family History Other No significant family history Social History Smoking Status: Never smoker alcohol intake: never substance use type: former substance user and heroin current occupational status: unemployed Travel in the last 8 weeks?: None Have you lived/traveled outside US in past 30 days?: No Contact w/someone who lives/traveled outside US past 30 days?: No Exposure to someone with infectious disease in past 14 days?: No Do you have a fever (greater than 100.4 F or 38 C)?: No Have you tested positive for COVID-19?: No Exposed to someone with COVID-19 in past 14 days?: No Do you have a sore throat?: No Do you have a cough?: No Do you have any weakness?: No Do you have any diarrhea?: No Are you experiencing any unusual bleeding?: No Do you have any muscle aches/pain?: No Do you have any abdominal pain?: No Are you experiencing loss of taste or smell?: No Other Medical History Have you received the Flu Vaccine for this season: No Have you received the Pneumonia Vaccine: No <Collette Dorsey (ED), [employer] WORKER - Last Filed: 12/28/24 23:19> ROS Obtained: Yes Systems reviewed as appropriate & no additional complaints except as documented Constitutional Constitutional: Reports as per HPI Physical Exam <Collette Dorsey (ED), [employer] WORKER - Last Filed: 12/28/24 23:19> General General appearance: alert and in distress (Left lower quadrant abdominal pain) Head Head exam: normocephalic Eye Eye exam: Present PERRL and EOMI ENT ENT exam: Present normal oropharynx and mucous membranes moist Neck Neck exam: Present full ROM and trachea midline Respiratory Respiratory exam: Present normal lung sounds bilaterally Cardiovascular Cardiovascular exam: Present regular rate, normal rhythm, normal heart sounds, +S1 and +S2 Abdominal Exam Abdominal exam: Present soft and normal bowel sounds Abdominal tenderness: Present LLQ and moderate Extremities Exam Extremities exam: Present normal inspection, full ROM and normal capillary refill Back Exam Back exam: Present normal inspection Neurological Exam Neurological exam: Present alert and oriented X3 Skin Skin exam: Present warm, dry and intact Medical Decision Making <Collette Dorsey (ED), [employer] WORKER - Last Filed: 12/28/24 23:19> Medical Records Screening: Per USPSTF and CDC recommendations, given the prevalence of disease in our region, it is our hospital?s policy to screen for HIV and viral Hepatitis for all patients aged 18 and over and those with ongoing risk factors. Matty Inquiry Pt receiving controlled substance: No Matty was queried for this patient: No Vital Signs: 12/28/24 22:00 12/28/24 22:06 12/28/24 23:00 Temperature 98.5 F Temperature Source Temporal Artery Scan Pulse Rate 63 67 Pulse Rate [Right Radial] 73 Respiratory Rate 15 20 12 Blood Pressure 125/78 131/71 Blood Pressure [Right Arm] 125/78 Blood Pressure Mean [Right Arm] 93 Blood Pressure Source [Right Arm] Automatic Cuff Blood Pressure Position Blood Pressure Position [Right Arm] Sitting 02 Sat by Pulse Oximetry 98 95 98 Oxygen Delivery Method Room Air 12/28/24 23:30 12/29/24 00:03 12/29/24 01:04 Temperature 98.2 F Temperature Source Oral Pulse Rate 76 63 67 Pulse Rate [Right Radial] Respiratory Rate 11 L 14 15 Blood Pressure 146/90 H 131/82 131/82 Blood Pressure [Right Arm] Blood Pressure Mean [Right Arm] Blood Pressure Source [Right Arm] Blood Pressure Position Supine Blood Pressure Position [Right Arm] 02 Sat by Pulse Oximetry 99 96 Oxygen Delivery Method Room Air Lab Data Lab Results 12/28/24 21:30: WBC 7.8, RBC 4.11 L, Hgb 13.8 L, Hct 39.4 L, MCV 95.9 H, MCH 33.6 H, MCHC 35.0, RDW 13.0, Plt Count 365, MPV 8.8, Neut % (Auto) 59.7, Lymph % (Auto) 24.5, Reagan % (Auto) 10.4 H, Eos % (Auto) 4.2, Baso % (Auto) 0.8, Neut # (Auto) 4.6, Lymph # (Auto) 1.9, Reagan # (Auto) 0.8, Eos # (Auto) 0.3, Baso # (Auto) 0.1, Sodium 137, Potassium 3.8, Chloride 90 L, Carbon Dioxide 32 H, Anion Gap 18.8 H, BUN 31 H, Creatinine 1.90 H, Estimated Creat Clear 49, Estimated GFR 37 L, Est GFR ( Amer) 45 L, Glucose 120 H, Calcium 10.5 H, Magnesium 2.2, Total Bilirubin 0.7, AST 56, ALT 74, Alkaline Phosphatase 106, Total Protein 8.9 H, Albumin 5.1 H, Globulin 3.8 H, Albumin/Globulin Ratio 1.3, Lipase 79 12/28/24 22:22: Lactate 0.8 12/28/24 23:30: Urine Color Yellow, Urine Appearance Clear, Urine pH 6.0, Ur Specific [place] <= 1.005, Urine Protein Negative, Urine Glucose (UA) 2+, Urine Ketones Negative, Urine Blood Trace-i, Urine Nitrate Negative, Urine Bilirubin Negative, Urine Urobilinogen 0.2, Ur Leukocyte Esterase Negative, Urine RBC 3-5, Urine WBC 10-20, Ur Squamous Epith Cells 20-50, Urine Bacteria 1+ 12/28/24 21:30 12/28/24 21:30 Orders (Tests/Meds): ED MEDICATIONS Discontinued Medications Generic Name Dose Route Start Last Admin Trade Name Freq PRN Reason Stop Dose Admin Acetaminophen 1,000 mg 12/28/24 23:47 12/28/24 23:59 Acetaminophen 500mg Tab PO 12/28/24 23:48 1,000 mg ONCE ONE Administration Dicyclomine HCl 20 mg 12/29/24 00:25 12/29/24 00:28 Dicyclomine 10mg Capsule PO 12/29/24 00:26 20 mg ONCE ONE Administration Iopamidol 75 ml 12/28/24 22:52 12/28/24 22:53 Iopamidol-370 (76%);100ml Bottle IV 12/28/24 22:53 75 ml ONCE ONE Administration Ketorolac Tromethamine 15 mg 12/28/24 23:48 12/28/24 23:59 Ketorolac 15mg/Ml Vial IV 12/28/24 23:49 15 mg ONCE ONE Administration Morphine Sulfate 4 mg 12/28/24 21:55 12/28/24 22:05 Morphine 4mg/Ml Syringe IV 12/28/24 21:56 4 mg ONCE ONE Administration Ondansetron HCl 4 mg 12/28/24 21:56 12/28/24 22:06 Ondansetron 4mg/2ml Vial IV 12/28/24 21:57 4 mg ONCE ONE Administration Sodium Chloride 10 ml 12/28/24 22:52 12/28/24 22:53 Sodium Chloride 0.9% 10ml Syr (Rad Only) IV 12/28/24 22:53 10 ml ONCE ONE Administration ORDERS Category Date Time Status CT abdomen pelvis w con Stat Cat Scan 12/28/24 21:53 Completed CBC [Complete Blood Count Auto Diff] Stat Lab 12/28/24 21:30 Completed Comprehensive Metabolic Panel Stat Lab 12/28/24 21:30 Completed Lactic Acid Stat Lab 12/28/24 22:22 Completed Lipase Stat Lab 12/28/24 21:30 Completed Magnesium Stat Lab 12/28/24 21:30 Completed Urinalysis and Microscopic Stat Lab 12/28/24 23:30 Completed Urine Culture Stat Micro 12/28/24 23:30 Received Medical Decision Narrative: patient is a 54-year-old male presenting to the emergency department for evaluation of left lower quadrant abdominal pain. Patient is hemodynamically stable and nontoxic-appearing upon arrival, afebrile. Differential diagnosis includes hernia, bowel obstruction, diverticulitis, among others. Workup will be conducted with hematologic labs, specific imaging. Initial inventions include analgesics. <Lux Baer MD - Last Filed: 12/29/24 02:38> Vital Signs: 12/28/24 22:00 12/28/24 22:06 12/28/24 23:00 Temperature 98.5 F Temperature Source Temporal Artery Scan Pulse Rate 63 67 Pulse Rate [Right Radial] 73 Respiratory Rate 15 20 12 Blood Pressure 125/78 131/71 Blood Pressure [Right Arm] 125/78 Blood Pressure Mean [Right Arm] 93 Blood Pressure Source [Right Arm] Automatic Cuff Blood Pressure Position Blood Pressure Position [Right Arm] Sitting 02 Sat by Pulse Oximetry 98 95 98 Oxygen Delivery Method Room Air 12/28/24 23:30 12/29/24 00:03 12/29/24 01:04 Temperature 98.2 F Temperature Source Oral Pulse Rate 76 63 67 Pulse Rate [Right Radial] Respiratory Rate 11 L 14 15 Blood Pressure 146/90 H 131/82 131/82 Blood Pressure [Right Arm] Blood Pressure Mean [Right Arm] Blood Pressure Source [Right Arm] Blood Pressure Position Supine Blood Pressure Position [Right Arm] 02 Sat by Pulse Oximetry 99 96 Oxygen Delivery Method Room Air Lab Data Lab Results 12/28/24 21:30: WBC 7.8, RBC 4.11 L, Hgb 13.8 L, Hct 39.4 L, MCV 95.9 H, MCH 33.6 H, MCHC 35.0, RDW 13.0, Plt Count 365, MPV 8.8, Neut % (Auto) 59.7, Lymph % (Auto) 24.5, Reagan % (Auto) 10.4 H, Eos % (Auto) 4.2, Baso % (Auto) 0.8, Neut # (Auto) 4.6, Lymph # (Auto) 1.9, Reagan # (Auto) 0.8, Eos # (Auto) 0.3, Baso # (Auto) 0.1, Sodium 137, Potassium 3.8, Chloride 90 L, Carbon Dioxide 32 H, Anion Gap 18.8 H, BUN 31 H, Creatinine 1.90 H, Estimated Creat Clear 49, Estimated GFR 37 L, Est GFR ( Amer) 45 L, Glucose 120 H, Calcium 10.5 H, Magnesium 2.2, Total Bilirubin 0.7, AST 56, ALT 74, Alkaline Phosphatase 106, Total Protein 8.9 H, Albumin 5.1 H, Globulin 3.8 H, Albumin/Globulin Ratio 1.3, Lipase 79 12/28/24 22:22: Lactate 0.8 12/28/24 23:30: Urine Color Yellow, Urine Appearance Clear, Urine pH 6.0, Ur Specific [place] <= 1.005, Urine Protein Negative, Urine Glucose (UA) 2+, Urine Ketones Negative, Urine Blood Trace-i, Urine Nitrate Negative, Urine Bilirubin Negative, Urine Urobilinogen 0.2, Ur Leukocyte Esterase Negative, Urine RBC 3-5, Urine WBC 10-20, Ur Squamous Epith Cells 20-50, Urine Bacteria 1+ Orders (Tests/Meds): ED MEDICATIONS Discontinued Medications Generic Name Dose Route Start Last Admin Trade Name Claudio PRN Reason Stop Dose Admin Acetaminophen 1,000 mg 12/28/24 23:47 12/28/24 23:59 Acetaminophen 500mg Tab PO 12/28/24 23:48 1,000 mg ONCE ONE Administration Dicyclomine HCl 20 mg 12/29/24 00:25 12/29/24 00:28 Dicyclomine 10mg Capsule PO 12/29/24 00:26 20 mg ONCE ONE Administration Iopamidol 75 ml 12/28/24 22:52 12/28/24 22:53 Iopamidol-370 (76%);100ml Bottle IV 12/28/24 22:53 75 ml ONCE ONE Administration Ketorolac Tromethamine 15 mg 12/28/24 23:48 12/28/24 23:59 Ketorolac 15mg/Ml Vial IV 12/28/24 23:49 15 mg ONCE ONE Administration Morphine Sulfate 4 mg 12/28/24 21:55 12/28/24 22:05 Morphine 4mg/Ml Syringe IV 12/28/24 21:56 4 mg ONCE ONE Administration Ondansetron HCl 4 mg 12/28/24 21:56 12/28/24 22:06 Ondansetron 4mg/2ml Vial IV 12/28/24 21:57 4 mg ONCE ONE Administration Sodium Chloride 10 ml 12/28/24 22:52 12/28/24 22:53 Sodium Chloride 0.9% 10ml Syr (Rad Only) IV 12/28/24 22:53 10 ml ONCE ONE Administration ORDERS Category Date Time Status CT abdomen pelvis w con Stat Cat Scan 12/28/24 21:53 Completed CBC [Complete Blood Count Auto Diff] Stat Lab 12/28/24 21:30 Completed Comprehensive Metabolic Panel Stat Lab 12/28/24 21:30 Completed Lactic Acid Stat Lab 12/28/24 22:22 Completed Lipase Stat Lab 12/28/24 21:30 Completed Magnesium Stat Lab 12/28/24 21:30 Completed Urinalysis and Microscopic Stat Lab 12/28/24 23:30 Completed Urine Culture Stat Micro 12/28/24 23:30 Received Medical Decision Narrative: patient is a 54-year-old male presenting to the emergency department for evaluation of left lower quadrant abdominal pain. Patient is hemodynamically stable and nontoxic-appearing upon arrival, afebrile. Differential diagnosis includes hernia, bowel obstruction, diverticulitis, among others. Workup will be conducted with hematologic labs, specific imaging. Initial inventions include analgesics. I was consulted by the PALLAVI, and we discussed the complexity of the problems being addressed. I approve the treatment and management plan for this patient's care in the emergency department, thus performing a substantive portion of the medical decision making. I assumed total care of this patient at approximately 2350. At this time, patient's CT imaging was pending. I evaluated the patient and patient reports that he has had 7 days of sharp left lower quadrant abdominal pain that does not radiate into his testicles. He has not had any nausea, vomiting, diarrhea. Patient CT imaging was interpreted by me personally. There is no acute findings on CT imaging. Per radiology, there are small fat-containing inguinal hernias and a very small fat-containing umbilical hernia. See radiology report for additional details. Patient's laboratory workup was grossly unremarkable nonactionable. There is no leukocytosis. Normal lactate. Creatinine is elevated at 1.9, however this is at or slightly improved from baseline. Liver enzymes and bilirubin within normal limits. Patient was also administered 15 mg IV Toradol (patient states that he can have medication such as ibuprofen and is unsure what his allergy is to diclofenac) as well as 1 g oral Tylenol and 20 mg Bentyl p.o. Given patient's negative workup here today, is felt that he is appropriate for discharge at this time. Will prescribe Bentyl, ibuprofen and Zofran upon discharge. Return precautions were given. All questions were answered. He demonstrated understanding and was agreement this plan. He was then discharged from the emergency department in stable condition. Lux Baer MD Critical Care <Collette Dorsey (ED), [employer] - Last Filed: 12/28/24 23:19> Critical Care Time Critical Care Time: No
[2024-12-28] MEDS: MORPHINE 4MG/ML SYRINGE 4 MG IV (22:05)
[2024-12-28 22:06] VITALS: BP 125/78; PULSE 73; RESP 20; TEMP 36.9; O2SAT 95; BMI 27.1
[2024-12-28] MEDS: ONDANSETRON 4MG/2ML VIAL 4 MG IV (22:06)
[2024-12-28 22:08] LABS: Albumin Level 5.1 g/dl (3.5-5.0); Chloride 90 mmol/L (98-107); Potassium 3.8 mmoL/L (3.5-5.1); Sodium 137 mmol/L (136-145)
[2024-12-28 22:10] LABS: Blood Urea Nitrogen 31 mg/dl (9-20); Creatinine Clearance Estimated 49 mL/min (50-200); Creatinine,Serum 1.90 mg/dl (0.66-1.25); Estimated Glomerular Filt Rate 37 ml/min (>60); GFR (African American) 45 ML/MIN (>60)
[2024-12-28 22:11] LABS: Alanine Aminotransferase 74 U/L (12-78); Albumin/Globulin Ratio 1.3 (1.1-1.8); Alkaline Phosphatase 106 U/L (38-126); Anion Gap 18.8 mEq/L (5-15); Aspartate Amino Transferase 56 U/L (17-59); Bilirubin,Total 0.7 mg/dl (0.2-1.3); Calcium 10.5 mg/dl (8.4-10.2); Carbon Dioxide 32 mmol/L (22.0-30.0); Globulin 3.8 g/dL (1.3-3.2); Glucose 120 mg/dl (74-100); Lipase 79 U/L (23-300); Magnesium 2.2 mg/dl (1.6-2.3); Total Protein,Serum 8.9 g/dl (6.3-8.2)
--- NOTE | 2024-12-28 22:16 | ECG_ITS ---
APPROVED REPORT Exam: Resting ECG HR:62 bpm ECG Measurements Heart Rate 62 AXES KS 183 P 61 QRSd 100 QRS 11 QT 432 T 94 QTc 437 Conclusion SINUS RHYTHM NONSPECIFIC ST & T-WAVE ABNORMALITY ABNORMAL ECG UNCONFIRMED REPORT Normal sinus rhythm. No ST elevation or depression. QTc of 437 Electronically signed by : MICHELE GAMINO, 12/29/2024 15:42:45
[2024-12-28] MEDS: SODIUM CHLORIDE 0.9% 10ML SYR (RAD ONLY) 10 ML IV (22:53)
[2024-12-28] MEDS: IOPAMIDOL-370 (76%);100ML BOTTLE 75 ML IV (22:53)
[2024-12-28 23:00] VITALS: BP 131/71; PULSE 67; RESP 12; O2SAT 98
[2024-12-28 23:30] VITALS: BP 146/90; PULSE 76; RESP 11; O2SAT 99
[2024-12-28 23:46] LABS: Microscopic, Urine URINE MICROSCOPIC (MICROSCOPIC)
[2024-12-28 23:47] LABS: Bilirubin,Urine Negative (Negative); Color,Urine YELLOW (Yellow); Glucose,Urine (UA) 2+ (Negative); Ketones,Urine Negative (Negative); Leukocyte Esterase,Urine Negative (Negative); PH,Urine 6.0 (5.0-8.5); Protein,Urine Negative (Negative); Specific Gravity, Urine <= 1.005 (1.005-1.030); Urobilinogen,Urine 0.2 EU/dl (0.2)
[2024-12-28 23:58] LABS: Bacteria,Urine 1+ /lpf; Squamous Epithelial Cell,Urine 20-50 #/hpf (0-5)
[2024-12-28] MEDS: ACETAMINOPHEN 500MG TAB 1000 MG PO (23:59)
[2024-12-28] MEDS: KETOROLAC 15MG/ML VIAL 15 MG IV (23:59)
[2024-12-29 00:03] VITALS: BP 131/82; PULSE 63; RESP 14; O2SAT 96
--- NOTE | 2024-12-29 00:39 | PC.NURSE ---
SPoke to employee at [employer] r/t PT d/c. Employee stated he would find someone to come get him
[2024-12-29 01:04] VITALS: BP 131/82; PULSE 67; RESP 15; TEMP 36.8; O2SAT 99
== END 2024-12-29 01:11 | disposition home or self-care (01) ==
PROVIDERS: Nurse Practitioner; Emergency Provider Student in an Organized Health Care Education/Training Program; PCP Family Medicine
DX: R10.32 Left lower quadrant pain (principal); R18.8 Other ascites; E78.5 Hyperlipidemia, unspecified
CPT/HCPCS: 74177; 80053; 81001; 83605; 83690; 83735; 85025; 87086; 93005; 96374; 96375; 99285; J1885; J2270; J2405; Q9967

== ENCOUNTER 2025-01-15 07:11 | Outpatient (CLI) | payer MEDICAID, SELFPAY ==
--- NOTE | 2025-01-15 07:15 | CT_ITS ---
FINAL REPORT TECHNIQUE: Thin section axial images were obtained from the lung bases to the pubic symphysis without IV contrast. Coronal reconstruction images were obtained from the axial data. Exam was performed using dose reduction technique. CLINICAL HISTORY: worsening abdominal pain COMPARISON: 12/29/2024 FINDINGS: Lung bases are clear. There are no renal or ureteral stones. There is no hydronephrosis or perinephric stranding. The gallbladder is present. The remaining unenhanced solid abdominal organs are unremarkable. There is no small bowel obstruction. The appendix is normal. There is wall thickening of the distal ileum with sparing of the ileocecal valve and terminal ileum, nonspecific distal ileitis not excluded. There is a large amount of stool in the colon. There is a right inguinal hernia containing the right anterolateral urinary bladder. There is no lymphadenopathy or ascites. No acute osseous abnormality is identified. IMPRESSION: No renal or ureteral stones. No hydronephrosis. Wall thickening of the distal ileum, distal ileitis not excluded. Right inguinal hernia containing the right anterolateral urinary bladder wall. Reviewed, Interpreted and Dictated by Giselle Reynolds MD Transcribed by Cait Love Authenticated and [facility]
== END 2025-01-15 23:59 | disposition home or self-care (01) ==
LOC: RAD 07:11
PROVIDERS: PCP Family Medicine; Visit Provider Family Medicine
DX: K40.90 Unilateral inguinal hernia, without obstruction or gangrene, not specified as recurrent (principal); R93.3 Abnormal findings on diagnostic imaging of other parts of digestive tract; R93.89 Abnormal findings on diagnostic imaging of other specified body structures; R10.32 Left lower quadrant pain; R18.8 Other ascites
CPT/HCPCS: 74176

== ENCOUNTER 2025-01-16 08:58 | Outpatient (CLI) | payer MEDICAID, SELFPAY ==
[2025-01-16 09:49] LABS: Hematocrit 40.4 % (42.0-52.0); Hemoglobin 13.8 g/dL (14.1-18.0); Immature Granulocytes % 2.0 %; Mean Corpuscular HGB Conc 34.2 g/dL (31.8-35.4); Mean Corpuscular Hemoglobin 33.4 pg (27.0-31.2); Mean Corpuscular Volume 97.8 fl (80-94); Nucleated Red Blood Cells % 0 %; Platelet Count 411 K/mm3 (142-424); Red Blood Count 4.13 M/mm3 (4.60-6.20); Red Cell Distribution Width-SD 44.7 fL; White Blood Count 10.0 K/mm3 (4.8-10.8)
[2025-01-16 10:04] LABS: INR 0.95 (0.9-1.1); Prothrombin Time 10.6 seconds (10.1-12.5)
[2025-01-16 11:23] LABS: Chloride 98 mmol/L (98-107)
[2025-01-16 11:24] LABS: Albumin Level 4.1 g/dl (3.5-5.0); Potassium 4.8 mmoL/L (3.5-5.1); Sodium 137 mmol/L (136-145)
[2025-01-16 11:26] LABS: Alanine Aminotransferase 62 U/L (12-78); Anion Gap 12.8 mEq/L (5-15); Aspartate Amino Transferase 42 U/L (17-59); Bilirubin,Unconjugated 0.8 mg/dL (0.0-1.1); Carbon Dioxide 31 mmol/L (22.0-30.0)
[2025-01-16 11:27] LABS: Albumin/Globulin Ratio 1.4 (1.1-1.8); Alkaline Phosphatase 122 U/L (38-126); Bilirubin,Direct 0.0 mg/dl (0.0-0.4); Bilirubin,Indirect 0.7 mg/dL (0.0-0.9); Bilirubin,Total 0.7 mg/dl (0.2-1.3); Calcium 9.3 mg/dl (8.4-10.2); Globulin 2.9 g/dL (1.3-3.2); Glucose 78 mg/dl (74-100); Total Protein,Serum 7.0 g/dl (6.3-8.2)
[2025-01-16 12:46] LABS: Blood Urea Nitrogen 30 mg/dl (9-20); Creatinine,Serum 1.90 mg/dl (0.66-1.25); Estimated Glomerular Filt Rate 37 ml/min (>60); GFR (African American) 45 ML/MIN (>60)
[2025-01-22 10:27] LABS: ALT (SGPT) P5P 54 IU/L (0-55); AST (SGOT) P5P 36 IU/L (0-40); Alpha 2-Macroglobulins, Qn 159 mg/dL (110-276); Bilirubin, Total <0.2 mg/dL (0.0-1.2); Cholesterol, Total 132 mg/dL (100-199); GGT 106 IU/L (0-65); Glucose 93 mg/dL (70-99); Triglycerides 152 mg/dL (0-149)
== END 2025-01-16 23:59 | disposition home or self-care (01) ==
LOC: LAB 08:58
PROVIDERS: PCP Family Medicine; Visit Provider Nurse Practitioner Family
DX: R79.89 Other specified abnormal findings of blood chemistry (principal)
CPT/HCPCS: 36415; 80053; 82172; 82247; 82248; 82465; 82947; 82977; 83010; 83521; 84450; 84460; 84478; 85025; 85610

== ENCOUNTER 2025-01-29 11:37 | Outpatient (CLI) | payer MEDICAID, SELFPAY ==
[2025-01-29 08:38] VITALS: BMI 26.9
== END 2025-01-29 23:59 | disposition home or self-care (01) ==
LOC: PREOP 11:38
PROVIDERS: PCP Family Medicine; Visit Provider Surgery
DX: Z01.812 Encounter for preprocedural laboratory examination (principal)

== ENCOUNTER 2025-02-07 07:48 | Day surgery (SDC) | payer MEDICAID, SELFPAY ==
[2025-01-29 14:17] VITALS: BMI 26.9
[2025-02-07] VITALS (10 sets, daily range): BP systolic 127–156; BP diastolic 66–81; PULSE 65–84; RESP 16–20; TEMP 36.3–36.6; O2SAT 93–96; BMI 26.9
[2025-02-07] MEDS: 0.9 % SODIUM CHLORIDE 1000ML 1,000 ML 25 ML IV (08:32)
--- NOTE | 2025-02-07 09:04 | EXP.ANES.CKL ---
[facility] Disclaimer: The information contained in this section may have been updated after the patient was seen, as this information can be updated by other users. Medical History Left against medical advice Chronic HFrEF (heart failure with reduced ejection fraction) Abdominal ascites Abnormal findings on diagnostic imaging of heart and coronary circulation Chest pain Fatigue Lung nodule Right foot pain Breath shortness Cough Fluid overload Heart failure Volume overload Hypokalemia Fluid overload Medically noncompliant Bilateral edema of lower extremity CKD stage 3a, GFR 45-59 ml/min CAD (coronary artery disease) Acute on chronic HFrEF (heart failure with reduced ejection fraction) Pneumonia Pulmonary infiltrate Hyponatremia Bed bug bite CHF (congestive heart failure) Right atrial thrombus Acute decompensated heart failure Nodule of left lung Severe left ventricular systolic dysfunction (LVSD) Transaminitis RENAY (acute kidney injury) Anasarca LV (left ventricular) mural thrombus Acute hypoxemic respiratory failure Cardiogenic shock Non-STEMI (non-ST elevated myocardial infarction) Acute HFrEF (heart failure with reduced ejection fraction) Pneumonia Pleural effusion, bilateral Vitamin B12 deficiency Allergic rhinitis BPH (benign prostatic hyperplasia) Hyperlipidemia Insomnia Partial tear of right Achilles tendon Surgical History Hx of heart artery stent History of back surgery Family History Unknown Family history non-contributory Other No significant family history Social History Smoking Status: Never smoker alcohol intake: never substance use type: former substance user and heroin current occupational status: disabled Travel in the last 8 weeks?: None Have you lived/traveled outside US in past 30 days?: No Contact w/someone who lives/traveled outside US past 30 days?: No Exposure to someone with infectious disease in past 14 days?: No Do you have a fever (greater than 100.4 F or 38 C)?: No Have you tested positive for COVID-19?: No Exposed to someone with COVID-19 in past 14 days?: No Do you have a sore throat?: No Do you have a cough?: No Do you have any weakness?: No Are you experiencing any nausea/vomitting?: No Do you have any diarrhea?: No Are you experiencing any unusual bleeding?: No Do you have any muscle aches/pain?: No Do you have any abdominal pain?: No Are you experiencing loss of taste or smell?: No [facility] Anesthesia Checklist Patient Identification Patient Identification: Arm Band and Verbal (Name & ) Structural Data Admitted From: Home Planned Operative Procedure/s: ingunial hernia repair Consent for Planned Operative Procedure(s) Verified: Yes Verified Documents: Surgical Consent and History and Physical NPO Status Verified Time NPO: 00:00 Additional verifications Anesthesia Reactions: Yes Airway Assessment Mallampati Score:: Class II C-Spine Mobility Assessed: Yes TMJ Mobility Assessed: Yes Dentition: Good Dentition Neurological Assessment Level of Consciousness: Awake, Alert and Appropriate Hx Seizures: No Numbness or tingling in extremities: No Anesthesia Plan Anesthesia Risk discussed: Yes Anesthesia Plan: Verified ASA Class: III Anesthesia Type: General
[2025-02-07] MEDS: CLINDAMYCIN PHOSPHATE/D5W 900 MG/50 ML PIGGYBACK 100 MG IV (09:20)
[2025-02-07] MEDS: LIDOCAINE 1% 20ML MDV 20 ML (09:55)
--- NOTE | 2025-02-07 11:47 | P.OP_ITS ---
Date of procedure: 02/07/25 Pre-op Diagnosis:: Complex right inguinal hernia containing small bowel Recurrent left inguinal hernia Post-op Diagnosis:: Same Procedure performed:: Laparoscopic repair of complex pantaloon right inguinal hernia Surgeon:: Marcell Wood MD Anesthesia: FLACO Estimated blood loss (mL): 15 Operative findings:: Profound inflammatory changes throughout left lower quadrant/pelvis with dense adhesions of the peritoneum Decision to forego left-sided repair secondary to above findings Large complex pantaloon right defect Umbilical defect closed incidentally at time of fascial closure Operative note:: After informed consent was obtained the patient was taken to the operating room and placed in the supine position. General anesthesia was induced and his abdomen was prepped and draped in a sterile fashion. After infiltration with local anesthetic a transverse incision was made below the umbilicus. A combination of blunt dissection, sharp dissection, and electrocautery was utilized to transect through the deeper subcutaneous tissue. The fascia was sharply opened transversely at the margin of the rectus (left side). The rectus was retracted and the dilating balloon was placed in position. The dilating ba lloon was insufflated with direct visualization confirming placement. The dilating balloon was removed and the working port was secured in position. Two 5 mm trocars were placed along the lower midline. Dissection initiated along the right lateral margin where adhesions were carefully taken down bluntly. Incarcerated preperitoneal fat was removed from a large/complex indirect defect. The peritoneal margin was carefully retracted to the point of medial angulation of the vas deferens. A large direct defect was also noted. The hernia sac at this site was inverted and tacked medially. Attention was then turned to the left side. Profound inflammatory changes and dense adhesions were noted throughout. Any attempted dissection created rents within the peritoneum, as well as, sanguinous ooze. The decision to forego further dissection was made. A large Bard 3DMax mesh was secured along the right side with medial/lateral tacks. Tacks were also placed to the medial aspect and lateral aspect of the epigastric vasculature. No sign of injury was noted. Pneumoperitoneum was released. All trocars were removed. An incidental umbilical defect was closed with interrupted 0 Ethibond at the time of closure of the fascia overlying the left medial rectus (also closed with 0 Ethibond). All wounds were irrigated and skin was reapproximated with 4-0 Monocryl in an interrupted fashion. Dressings were applied and the patient was transferred to recovery in stable condition. Condition: stable Disposition: PACU Specimens:: none Complications:: No immediate
[2025-02-07] MEDS: ONDANSETRON 4MG/2ML VIAL 4 MG IV (11:55)
--- NOTE | 2025-02-07 12:05 | P.PNANES_ITS ---
[facility] Anesthesia Record Part I Anesthesia Record I Intake, IV Amount: 1,250 Hydration: Adequate Estimated blood loss (mL): 20 Urine output (mL): 200 Blood Products used (#): none Blood Pressure: 143/77 SaO2: 94 Pulse Rate: 81 Airway Patency: Patent Respiratory Rate: 16 Temperature: 97.9 F Patient is:: Drowsy and Stable Stable to PACU at:: 11:55
[2025-02-07] MEDS: HYDROMORPHONE 2MG/ML SYRINGE 0.5 MG IV (12:08)
[2025-02-07 15:40] LABS: Microscopic, Urine URINE MICROSCOPIC (MICROSCOPIC)
[2025-02-07 18:22] LABS: Bilirubin,Urine Negative (Negative); Color,Urine YELLOW (Yellow); Glucose,Urine (UA) 2+ (Negative); Ketones,Urine Negative (Negative); Leukocyte Esterase,Urine Negative (Negative); PH,Urine 5.5 (5.0-8.5); Protein,Urine Negative (Negative); Specific Gravity, Urine 1.025 (1.005-1.030); Urobilinogen,Urine 0.2 EU/dl (0.2)
--- NOTE | 2025-02-08 07:40 | P.PNANES_ITS ---
[facility] Anesthesia Record Part II Anesthesia Record Part II Discharge Time: 12:35 Destination: Surgical Day Care (OP Surgery) PACU nurse assessment reviewed?: Yes Patient Condition:: Good Anesthesia Complications:: None Swallowing reflex intact?: Yes Airway Patency: Patent Cyanosis?: No Blood Pressure: 134/66 SaO2: 95 Respiratory Rate: 18 Pulse Rate: 65 Temperature: 97.9 F Mental Status: Alert & Oriented Pain level:: 3 Nausea and/or vomitting:: None Intake, IV Amount: 0 Hydration: Adequate
[2025-02-08 07:41] VITALS: BP 134/66; PULSE 65; RESP 18; TEMP 36.6; O2SAT 95
== END 2025-02-07 13:11 | disposition home or self-care (01) ==
PROVIDERS: PCP Family Medicine; Visit Provider Surgery
PROC: (CPT 49650; principal; 2025-02-07 09:45)
DX: K40.00 Bilateral inguinal hernia, with obstruction, without gangrene, not specified as recurrent (principal); K40.91 Unilateral inguinal hernia, without obstruction or gangrene, recurrent; K42.9 Umbilical hernia without obstruction or gangrene; I50.20 Unspecified systolic (congestive) heart failure; I25.10 Atherosclerotic heart disease of native coronary artery without angina pectoris; N18.31 Chronic kidney disease, stage 3a; E78.5 Hyperlipidemia, unspecified; N40.0 Benign prostatic hyperplasia without lower urinary tract symptoms; J96.01 Acute respiratory failure with hypoxia
CPT/HCPCS: 49650; 51702; 81001; 96374; C1781; J0736; J1100; J1171; J2003; J2250; J2405; J2704; J3010; J7030; J7120

== ENCOUNTER 2025-02-15 11:58 | Outpatient (CLI) | payer MEDICAID, SELFPAY ==
[2025-02-15 14:38] LABS: Coronavirus 19, PCR Not Detected (NotDetected); Influenza A, PCR Not Detected (NotDetected); Influenza B, PCR Not Detected (NotDetected)
== END 2025-02-15 23:59 ==
LOC: LAB.DROPOF 02-18 11:58
PROVIDERS: PCP Family Medicine; Visit Provider Family Medicine
DX: R69 Illness, unspecified (principal)
CPT/HCPCS: 87636

== ENCOUNTER 2025-02-28 09:43 | Outpatient (CLI) | payer MEDICAID, SELFPAY ==
[2025-02-28 10:55] LABS: Alanine Aminotransferase 33 U/L (12-78); Albumin Level 4.1 g/dl (3.5-5.0); Albumin/Globulin Ratio 1.8 (1.1-1.8); Alkaline Phosphatase 106 U/L (38-126); Anion Gap 11.2 mEq/L (5-15); Aspartate Amino Transferase 30 U/L (17-59); Bilirubin,Total 0.5 mg/dl (0.2-1.3); Blood Urea Nitrogen 14 mg/dl (9-20); Calcium 9.4 mg/dl (8.4-10.2); Carbon Dioxide 24 mmol/L (22.0-30.0); Chloride 107 mmol/L (98-107); Creatinine,Serum 1.40 mg/dl (0.66-1.25); Estimated Glomerular Filt Rate 53 ml/min (>60); GFR (African American) 64 ML/MIN (>60); Globulin 2.3 g/dL (1.3-3.2); Glucose 84 mg/dl (74-100); Potassium 4.2 mmoL/L (3.5-5.1); Sodium 138 mmol/L (136-145); Total Protein,Serum 6.4 g/dl (6.3-8.2)
== END 2025-02-28 23:59 | disposition home or self-care (01) ==
LOC: LAB 09:43
PROVIDERS: PCP Family Medicine; Visit Provider Family Medicine
DX: R74.8 Abnormal levels of other serum enzymes (principal)
CPT/HCPCS: 36415; 80053

== ENCOUNTER 2025-03-05 07:25 | Outpatient (CLI) | payer MEDICAID, SELFPAY ==
--- NOTE | 2025-03-05 07:30 | MR_ITS ---
FINAL REPORT TECHNIQUE: Multiplanar MR imaging was obtained of the left shoulder with and without intravenous contrast. CLINICAL HISTORY: tendinopathy of left rotator cuff. shoulder pain. FINDINGS: Bones and joints: There is no acute fracture, edema, or pathologic marrow replacement. Acromioclavicular joint degenerative disease is present and there is osteophytosis which narrows the supraspinatus outlet. Rotator cuff: There are high-grade partial, near complete tears of the posterior supraspinatus and anterior infraspinatus tendons. There is significant fatty atrophy of both muscles. No subscapularis tendon tear. Labrum: The biceps labral complex is intact. No labral tear is identified. The inferior glenohumeral ligament is intact. The biceps tendon is intact. No biceps tendon tear is identified. Other: There is a normal joint effusion. Remaining soft tissues are within normal limits. IMPRESSION: High-grade partial thickness articular sided, near complete tears of the posterior supraspinatus and anterior infraspinatus tendons. Mild AC joint degenerative disease Reviewed, Interpreted and Dictated by Giselle Reynolds MD Transcribed by Estela Hammer Authenticated and [facility]
[2025-03-05] MEDS: SODIUM CHLORIDE 0.9% 10ML SYR (RAD ONLY) 10 ML IV (08:17)
[2025-03-05] MEDS: GADOTERIDOL INJ 20ML SYRINGE 15 ML IV (08:17)
== END 2025-03-05 23:59 | disposition home or self-care (01) ==
LOC: RAD 07:26
PROVIDERS: PCP Family Medicine; Visit Provider Physician Assistant
DX: M75.112 Incomplete rotator cuff tear or rupture of left shoulder, not specified as traumatic (principal); M19.011 Primary osteoarthritis, right shoulder; M75.02 Adhesive capsulitis of left shoulder
CPT/HCPCS: 73223; A9576

== ENCOUNTER 2025-03-14 09:57 | Outpatient (CLI) | payer MEDICAID, SELFPAY ==
--- OUTSIDE RECORDS SUMMARY | 2025-03-14 10:17 | XMS_ITS | Clinical Summary ---
Author Organization Healthcare Address [address] [id number] Care Team Providers Care Display Fabricator Name Role Phone Hua Patricia MD Primary Care Provider [phone] Encounters Date Type Department Care Team Description 03/06/2025 Orders Only [facility] [address] [place] [phone] Sis Knowles Stage 3 chronic kidney disease, unspecified whether stage 3a or 3b CKD (CMS/HCC) (Primary Dx); Vitamin D insufficiency from Last 3 Months Social History Tobacco Use Types Packs/Day Years Used Date Smoking Tobacco: Never Assessed Sex and Gender Information Value Date Recorded Sex Assigned at Not on file Legal Sex Male 6:57 PM EDT Gender Identity Not on file Sexual Orientation Not on file Plan of Treatment Upcoming Encounters Date Type Department Care Team (Late st Contact Info) Description 05/24/2025 9:00 AM EST Office Visit [facility] [address] [place] [phone] Arelis Mendez, CAPSULE MAKER [address] [address] Health Maintenance Due Date Last Done Comments [facility]-Depression Screening 1970 [facility]-HIV Screening 1970 [facility]-Hepatitis C Screening 1970 [facility]-/Child/Adol SDOH Screenings 1970 [facility]- SDOH Screenings 1988 [facility]-Adult SDOH Screenings 1988 [facility]-DTaP,Tdap,and Td Vaccine s (1 - Tdap) 1989 CT Colonography 2015 Colonoscopy 2015 FIT-DNA 2015 FIT 2015 FOBT 2015 Sigmoidoscopy 2015 [facility]-Colorectal Cancer Screening 2015 [facility]-Pneumococcal Vaccine: 50 + Years (1 of 1 - PCV) 2020 [facility]-Zoster Vaccines (1 of 2) 2020 [id number] Vaccine (1 - season) 2024 [facility]-Hepatitis B Vaccines Completed 999, 09/24/1998, 08/21/1998 [facility]-Influenza Vaccine Completed 02/27/2025 HPV Vaccines Aged Out No longer eligi ble based on patient's age to complete this topic [facility]-HIB Vaccines Aged Out No longer e ligible based on patient's age to complete this topic [facility]-Hepatitis A Vaccines Aged Out No longer eligible based on patient's age to complete this topic [facility]-IPV Vaccines Aged Out No longer e ligible based on patient's age to complete this topic [facility]-Rotavirus Vaccines Aged Out No lo nger eligible based on patient's age to complete this topic Insurance Care Teams Display Fabricator Relationship Specialty Start Date End Date Hua Patricia MD [address] [phone] PCP - General 08/22/20
--- OUTSIDE RECORDS SUMMARY | 2025-03-14 10:17 | XMS_ITS | Encounter Summary ---
Author Organization Healthcare Address [address] [place] [address] Care Team Providers Care Director Of Occupational Therapy Name Role Phone Hua Patricia MD Primary Care Provider [phone] Encounter Details Date Type Department Care Team (Late Contact Info) Description 03/06/2025 Orders Only [facility] [address] [place] [phone] Sis Knowles Stage 3 chronic kidney disease, unspecified whether stage 3a or 3b CKD (CMS/HCC) (Primary Dx); Vitamin D insufficiency Social History Tobacco Use Types Packs/Day Years Used Date Smoking Tobacco: Never Assessed Sex and Gender Information Value Date Recorded Sex Assigned at Not on file Legal Sex Male 6:57 PM EDT Gender Identity Not on file Sexual Orientation Not on file documented as of this encounter Plan of Treatment Upcoming Encounters Date Type Department Care Team (Late Contact Info) Description 05/24/2025 9:00 AM EST Office Visit [facility] [address] [address] Arelis Mendez, AUTOMOTIVE TIRE TESTER [address] [address] Scheduled Orders Name Type Priority Associated Diagnoses Orde r Schedule Renal Function Panel, Plasma Lab Routine Stage 3 chronic kidney disease, unspecified whether stage 3a or 3b CKD (CMS/HCC) Expected: 03/06/2025 (Approximate), Expires: 09/03/2026 CBC and Differential Lab Routine Stage 3 chronic kidney disease, unspecified whether stage 3a or 3b CKD (CMS/HCC) Expected: 03/06/2025 (Approximate), Expires: 09/03/2026 Creatinine, Random, Urine Lab Routine Stage 3 chronic kidney disease, unspecified whether stage 3a or 3b CKD ([facility]) Expected: 03/06/2025 (Approximate), Expires: 09/03/2026 Protein, Random, Urine with Creatinine Lab Routine Stage 3 chronic kidney disease, unspecified whether stage 3a or 3b CKD ([facility]/HCC) Expected: 03/06/2025 (Approximate), Expires: 09/03/2026 Urinalysis with reflex microscopic (Culture NOT Included) Lab Routine Stage 3 chronic kidney disease, unspecified whether stage 3a or 3b CKD ([facility]/HCC) Expected: 03/06/2025 (Approximate), Expires: 09/03/2026 PTH Intact Total Lab Routine Stage 3 chronic kidney disease, unspecified whether stage 3a or 3b CKD ([facility]) Vitamin D insufficiency Expected: 03/06/2025 (Approximate), Expires: 09/03/2026 Vitamin D 25 Hydroxy Lab Routine Stage 3 chronic kidney disease, unspecified whether stage 3a or 3b CKD ([facility]) Vitamin D insufficiency Expected: 03/06/2025 (Approximate), Expires: 09/03/2026 documented as of this encounter Visit Diagnoses Diagnosis Stage 3 chronic kidney disease, unspecified whether stage 3a or 3b CKD ([facility])- Primary Vitamin D insufficiency documented in this encounter Care Teams Director Of Occupational Therapy Relationship Specialty Start Date End Date Hua Patricia MD [address] [place] [address] PCP - General 08/22/20 documented as of this encounter
[2025-03-14 10:28] LABS: Hematocrit 39.9 % (42.0-52.0); Hemoglobin 13.2 g/dL (14.1-18.0); Immature Granulocytes % 0.2 %; Mean Corpuscular HGB Conc 33.1 g/dL (31.8-35.4); Mean Corpuscular Hemoglobin 32.0 pg (27.0-31.2); Mean Corpuscular Volume 96.6 fl (80-94); Nucleated Red Blood Cells % 0 %; Platelet Count 315 K/mm3 (142-424); Red Blood Count 4.13 M/mm3 (4.60-6.20); Red Cell Distribution Width-SD 43.7 fL; White Blood Count 6.1 K/mm3 (4.8-10.8)
[2025-03-14 10:43] LABS: Hemoglobin A1C 5.7 % (4.0-6.0)
[2025-03-14 11:07] LABS: Albumin Level 4.4 g/dl (3.5-5.0); Chloride 103 mmol/L (98-107)
[2025-03-14 11:08] LABS: Potassium 4.2 mmoL/L (3.5-5.1); Sodium 141 mmol/L (136-145)
[2025-03-14 11:10] LABS: Alanine Aminotransferase 40 U/L (12-78); Anion Gap 15.2 mEq/L (5-15); Aspartate Amino Transferase 36 U/L (17-59); Blood Urea Nitrogen 14 mg/dl (9-20); Carbon Dioxide 27 mmol/L (22.0-30.0); Creatinine,Serum 1.50 mg/dl (0.66-1.25); Estimated Glomerular Filt Rate 49 ml/min (>60); GFR (African American) 59 ML/MIN (>60)
[2025-03-14 11:11] LABS: Albumin/Globulin Ratio 1.6 (1.1-1.8); Alkaline Phosphatase 84 U/L (38-126); Bilirubin,Total 0.7 mg/dl (0.2-1.3); Calcium 9.4 mg/dl (8.4-10.2); Cholesterol 109 mg/dl (140-200); Globulin 2.8 g/dL (1.3-3.2); Glucose 138 mg/dl (74-100); HDL Cholesterol 56 mg/dl (40-60); Total Protein,Serum 7.2 g/dl (6.3-8.2); Triglycerides 58 mg/dl (30-150)
== END 2025-03-14 23:59 | disposition home or self-care (01) ==
LOC: LAB 09:59
PROVIDERS: PCP Family Medicine; Visit Provider Family Medicine
DX: E78.5 Hyperlipidemia, unspecified (principal); R73.03 Prediabetes; R73.9 Hyperglycemia, unspecified
CPT/HCPCS: 36415; 80053; 80061; 83036; 85025

== ENCOUNTER 2025-03-20 10:03 | Day surgery (SDC) | payer MEDICAID, SELFPAY ==
--- NOTE | 2025-03-12 12:51 | EXP.HP ---
History of Present Illness *Admission Date: 03/20/25 *History of present illness: Mr. Gonsales is a 54-year-old gentleman who is here for diagnostic colonoscopy. The patient is a [facility] resident who is referred for abdominal distention. He has had some elevated liver chemistries intermittently. The patient also has had ascites which was felt to be related to acute on chronic congestive heart failure/congestive cardiomyopathy. He did go to the ED with mostly left lower abdominal discomfort and distention. His ultrasound and CAT scan were unremarkable. He reports no rectal bleeding, change in bowel habits, gassiness or belching. He reports no family history of colon cancer. He has never had a colonoscopy. The examination is deemed medically necessary for diagnostic colonoscopy. The patient has been seen, interviewed and examined prior to the procedure by both myself and the anesthesia provider. [facility] Disclaimer: The information contained in this section may have been updated after the patient was seen, as this information can be updated by other users. Medical History Left anterior shoulder pain Left-sided chest wall pain Acute exacerbation of chronic heart failure CHF (congestive heart failure) Acute exacerbation of CHF (congestive heart failure) Abdominal ascites Chest pain Lung nodule Weakness of foot Abdominal distension Chronic foot pain Abdominal distention Allergic conjunctivitis URI (upper respiratory infection) Left against medical advice Chronic HFrEF (heart failure with reduced ejection fraction) Abnormal findings on diagnostic imaging of heart and coronary circulation Fatigue Right foot pain Breath shortness Cough Fluid overload Heart failure Volume overload Hypokalemia Fluid overload Medically noncompliant Bilateral edema of lower extremity CKD stage 3a, GFR 45-59 ml/min CAD (coronary artery disease) Acute on chronic HFrEF (heart failure with reduced ejection fraction) Pneumonia Pulmonary infiltrate Hyponatremia Bed bug bite CHF (congestive heart failure) Right atrial thrombus Acute decompensated heart failure Nodule of left lung Severe left ventricular systolic dysfunction (LVSD) Transaminitis RENAY (acute kidney injury) Anasarca LV (left ventricular) mural thrombus Acute hypoxemic respiratory failure Cardiogenic shock Non-STEMI (non-ST elevated myocardial infarction) Acute HFrEF (heart failure with reduced ejection fraction) Pneumonia Pleural effusion, bilateral Vitamin B12 deficiency Allergic rhinitis BPH (benign prostatic hyperplasia) Hyperlipidemia Insomnia Partial tear of right Achilles tendon Surgical History History of hernia repair Hx of heart artery stent History of back surgery Family History Unknown Family history non-contributory Other No significant family history Social History (Updated 03/20/25 @ 11:13 by Estephanie Salcedo RN) Smoking Status: Never smoker alcohol intake: never substance use type: former substance user and heroin current occupational status: disabled Travel in the last 8 weeks?: None Have you lived/traveled outside US in past 30 days?: No Contact w/someone who lives/traveled outside US past 30 days?: No Exposure to someone with infectious disease in past 14 days?: No Do you have a fever (greater than 100.4 F or 38 C)?: No Have you tested positive for COVID-19?: No Exposed to someone with COVID-19 in past 14 days?: No Do you have a sore throat?: No Do you have a cough?: No Do you have any weakness?: No Are you experiencing any nausea/vomitting?: No Do you have any diarrhea?: No Are you experiencing any unusual bleeding?: No Do you have any muscle aches/pain?: No Do you have any abdominal pain?: No Are you experiencing loss of taste or smell?: No Other Medical History Have you received the Flu Vaccine for this season: No Have you received the Pneumonia Vaccine: No Review of Systems Review of Systems Review of systems (narrative): Negative *Cardiovascular Comments: Negative *Gastrointestinal Comments: Negative *Genitourinary Comments: Negative *Musculoskeletal Comments: Negative *Neurologic Comments: Negative Meds Home Medications and Allergies Home Medications ?Medication ?Instructions ?Recorded ?Confirmed ?Type atorvastatin 80 mg tablet 80 mg PO HS #90 tabs 08/10/24 03/20/25 Rx dapagliflozin propanediol 10 mg 10 mg PO DAILY #90 tabs 10/01/24 03/20/25 Rx tablet (Farxiga) metoprolol succinate 100 mg 100 mg PO DAILY #90 tabs 10/01/24 03/20/25 Rx tablet,extended release 24 hr spironolactone 50 mg tablet 50 mg PO BID #180 tabs 11/28/24 03/20/25 Rx dicyclomine 10 mg capsule 10 mg PO BID PRN abdominal pain 12/29/24 03/20/25 Rx #14 caps ondansetron 4 mg disintegrating 4 mg PO Q6H PRN nausea and 12/29/24 03/20/25 Rx tablet vomiting #16 tabs cholecalciferol (vitamin D3) 50 50 mcg PO DAILY #90 caps 01/18/25 03/20/25 Rx mcg (2,000 unit) capsule lidocaine 5 % topical patch See Rx Instructions topical 01/18/25 03/20/25 Rx .COMPLEX #30 ea bumetanide 2 mg tablet 2 mg PO NEEDED PRN Fluid #30 01/23/25 03/20/25 Rx tabs cetirizine 10 mg tablet See Rx Instructions .Route 02/06/25 03/20/25 Rx .COMPLEX #90 tabs fluticasone propionate 50 1 spray intranasal BID #16 grams 02/27/25 03/20/25 Rx mcg/actuation nasal spray,suspension (Flonase Allergy Relief) sumatriptan succinate 25 mg tablet See Rx Instructions PO .COMPLEX 02/27/25 03/20/25 Rx migraine #14 tabs tamsulosin 0.4 mg capsule 0.4 mg PO HS 30 days #30 caps 02/27/25 03/20/25 Rx peg 3350-electrolytes 236 240 ml PO Q10M colonscopy #4,000 mL 03/01/25 03/20/25 Rx gram-22.74 gram-6.74 gram-5.86 gram solution (Golytely) acetaminophen 325 mg tablet 325 mg PO ONCE 03/18/25 03/20/25 History aspirin 81 mg tablet 81 mg PO DAILY #90 tabs 03/18/25 03/20/25 Rx New Prescriptions to Start Prescriptions: Allergies Allergy/AdvReac Type Severity Reaction Status Date / Time diclofenac (DICLOFENAC) Allergy Unknown Unknown Verified 03/20/25 09:16 allergy reaction Penicillins (PENICILLINS) Allergy Unknown Hives Verified 03/20/25 09:16 propoxyphene (PROPOXYPHENE) Allergy Unknown Unknown Verified 03/20/25 09:16 allergy reaction tramadol (TRAMADOL) Allergy Unknown Vomiting Verified 03/20/25 09:16 Exam *Routine HEENT Exam Head: Present normocephalic Eye: Present EOMI and PERRL ENT: Present mucous membranes moist *Routine Neck Exam Neck: Present supple *Routine Respiratory Exam Respiratory: Present CTA bilaterally *Routine Cardiovascular Exam Cardiovascular: Present RRR *Routine Abdominal Exam Abdominal: Present soft and normoactive bowel sounds; Absent tenderness *Routine Rectal Exam Rectal:: deferred *Routine Genitalia Exam Genitalia:: deferred *Routine Extremities Exam Extremities: Absent cyanosis, clubbing or edema *Routine Skin Exam Skin: Present warm; Absent rash *Routine Neurological Exam Neurological: Present alert and oriented X3 Assessment and Plan *Assessment and plan (1) Bloating: Status: Acute Category: Medical Code(s): R14.0 - Abdominal distension (gaseous) (2) Left lower quadrant abdominal pain: Status: Acute Category: Medical Code(s): R10.32 - Left lower quadrant pain (3) Abdominal distention: Status: Acute Category: Medical Code(s): R14.0 - Abdominal distension (gaseous) Plan A/P: 1. Bloating/abdominal distention with left lower quadrant abdominal pain is the preprocedural diagnosis. The patient will be anesthetized/sedated using MAC sedation. The patient has been seen and examined. Cardiac and lung assessment prior to the examination is stable. Proceed with planned diagnostic colonoscopy.
--- NOTE | 2025-03-20 06:30 | HMH.PROCNOTE ---
[facility] Procedure Note Date: 03/20/25 Time: 12:07 Procedure Note:: Colonoscopy Procedure Report: Colonoscopy with cold snare polypectomy Endoscopist: Kevin Mchugh II, MD Referring physician: PARUL Moctezuma Date of Procedure: March 20, 2025 Equipment: Olympus [id number] adult colonoscope Sedation: MAC sedation Indication: Mr. Gonsales is a 54-year-old gentleman who is here for diagnostic colonoscopy. The patient is a [facility] resident who was referred for abdominal distention. He has had some elevated liver chemistries intermittently. The patient also has had ascites which was felt to be related to acute on chronic congestive heart failure/congestive cardiomyopathy. He did go to the ED with mostly left lower abdominal discomfort and distention. His ultrasound and CAT scan were unremarkable. Most of his symptoms have resolved after initiation of diuretics. He reports no rectal bleeding, change in bowel habits, gassiness or belching. He reports no family history of colon cancer. He has never had a colonoscopy. The examination is deemed medically necessary for diagnostic colonoscopy. Procedure: Prior to the procedure, a history and physical exam was performed, and patient's medications and allergies were reviewed. The risks, benefits and alternatives of the sedation and procedure were discussed with the patient. All questions were answered and informed consent was obtained. The patient was brought to the procedure room. Patient identification and proposed procedure were verified by the physician and the nurse. The patient was placed in a left lateral decubitus position and the scope was passed under direct vision. Throughout the procedure, the patient's blood pressure, pulse, and oxygen saturations were monitored continuously. The colonoscopy was accomplished without difficulty. The patient tolerated the procedure well. Findings: On digital rectal examination there was normal rectal tone. There were external hemorrhoidal tags. The prostate was 2-3+ with some firmness along the right lateral margin of the prostate but no nodules. The colonoscope was introduced through the anal canal to the rectum and advanced to the cecum. The ileocecal valve and appendiceal orifice were identified. The scope was advanced a short distance into the ileum which appeared grossly normal. The scope was then withdrawn into the colon. The cecum, ascending, transverse, descending and sigmoid colon were grossly normal. There was a diminutive 4 to 5 mm polyp in the rectosigmoid removed via cold snare polypectomy. The rectum was normal and there were no other mucosal abnormalities identified. Upon retroflexion within the rectum there were grade 2-3 internal hemorrhoids. The preparation was excellent throughout with Stanhope Preparation Score of 9. The cecal time was 12 minutes. Impression: 1. Diminutive 4 to 5 mm rectal polyp 2. Grade 2-3 internal hemorrhoids with external hemorrhoidal tags 3. Firm prostate asymmetry Plan: I will follow-up the polyp histology and recommend repeat screening/surveillance colonoscopy again in 7 to 10 years based upon the pathology. The patient did have a normal PSA (0.8) in October 2024. I would continue annual surveillance PSA. I would encourage psyllium bulking fiber supplementation on a maintenance basis.
[2025-03-20 11:12] VITALS: BP 142/83; PULSE 77; RESP 16; TEMP 36.2; O2SAT 98; BMI 26.6
[2025-03-20] MEDS: LACTATED RINGERS 1000ML 1,000 ML 50 ML IV (11:22)
--- NOTE | 2025-03-20 11:37 | EXP.ANES.CKL ---
[facility] Disclaimer: The information contained in this section may have been updated after the patient was seen, as this information can be updated by other users. Medical History Left anterior shoulder pain Left-sided chest wall pain Acute exacerbation of chronic heart failure CHF (congestive heart failure) Acute exacerbation of CHF (congestive heart failure) Abdominal ascites Chest pain Lung nodule Weakness of foot Abdominal distension Chronic foot pain Abdominal distention Allergic conjunctivitis URI (upper respiratory infection) Left against medical advice Chronic HFrEF (heart failure with reduced ejection fraction) Abnormal findings on diagnostic imaging of heart and coronary circulation Fatigue Right foot pain Breath shortness Cough Fluid overload Heart failure Volume overload Hypokalemia Fluid overload Medically noncompliant Bilateral edema of lower extremity CKD stage 3a, GFR 45-59 ml/min CAD (coronary artery disease) Acute on chronic HFrEF (heart failure with reduced ejection fraction) Pneumonia Pulmonary infiltrate Hyponatremia Bed bug bite CHF (congestive heart failure) Right atrial thrombus Acute decompensated heart failure Nodule of left lung Severe left ventricular systolic dysfunction (LVSD) Transaminitis RENAY (acute kidney injury) Anasarca LV (left ventricular) mural thrombus Acute hypoxemic respiratory failure Cardiogenic shock Non-STEMI (non-ST elevated myocardial infarction) Acute HFrEF (heart failure with reduced ejection fraction) Pneumonia Pleural effusion, bilateral Vitamin B12 deficiency Allergic rhinitis BPH (benign prostatic hyperplasia) Hyperlipidemia Insomnia Partial tear of right Achilles tendon Surgical History History of hernia repair Hx of heart artery stent History of back surgery Family History Unknown Family history non-contributory Other No significant family history Social History (Updated 03/20/25 @ 11:13 by Estephanie Salcedo RN) Smoking Status: Never smoker alcohol intake: never substance use type: former substance user and heroin current occupational status: disabled Travel in the last 8 weeks?: None Have you lived/traveled outside US in past 30 days?: No Contact w/someone who lives/traveled outside US past 30 days?: No Exposure to someone with infectious disease in past 14 days?: No Do you have a fever (greater than 100.4 F or 38 C)?: No Have you tested positive for COVID-19?: No Exposed to someone with COVID-19 in past 14 days?: No Do you have a sore throat?: No Do you have a cough?: No Do you have any weakness?: No Are you experiencing any nausea/vomitting?: No Do you have any diarrhea?: No Are you experiencing any unusual bleeding?: No Do you have any muscle aches/pain?: No Do you have any abdominal pain?: No Are you experiencing loss of taste or smell?: No [facility] Anesthesia Checklist Patient Identification Patient Identification: Arm Band Structural Data Admitted From: Home Planned Operative Procedure/s: Colonoscopy Consent for Planned Operative Procedure(s) Verified: Yes Verified Documents: Surgical Consent and History and Physical NPO Status Verified Time NPO: 00:00 Additional verifications Anesthesia Reactions: No Airway Assessment Mallampati Score:: Class II C-Spine Mobility Assessed: Yes TMJ Mobility Assessed: Yes Dentition: Poor Dentition Neurological Assessment Level of Consciousness: Awake, Alert and Appropriate Anesthesia Plan Anesthesia Risk discussed: Yes Anesthesia Plan: Verified ASA Class: III Anesthesia Type: MAC
[2025-03-20 12:10] VITALS: BP 119/64; PULSE 83; RESP 16; TEMP 36.1; O2SAT 95
[2025-03-20 12:20] VITALS: BP 116/68; PULSE 71; RESP 16; O2SAT 98
[2025-03-20 12:30] VITALS: BP 123/76; PULSE 73; RESP 16; O2SAT 99
[2025-03-20 12:38] VITALS: BP 132/80; PULSE 76; RESP 16; O2SAT 99
== END 2025-03-20 12:41 | disposition home or self-care (01) ==
PROVIDERS: PCP Family Medicine; Visit Provider Internal Medicine Gastroenterology
PROC: 0DJD8ZZ Inspection of Lower Intestinal Tract, Via Natural or Artificial Opening Endoscopic (ICD-10-PCS; CPT 45378; principal; 2025-03-20 13:30)
DX: R14.0 Abdominal distension (gaseous) (principal); K62.1 Rectal polyp; K64.2 Third degree hemorrhoids; K64.4 Residual hemorrhoidal skin tags; N42.89 Other specified disorders of prostate; I50.23 Acute on chronic systolic (congestive) heart failure; N40.0 Benign prostatic hyperplasia without lower urinary tract symptoms; I25.10 Atherosclerotic heart disease of native coronary artery without angina pectoris; N18.31 Chronic kidney disease, stage 3a; E78.5 Hyperlipidemia, unspecified; I25.2 Old myocardial infarction; Z95.1 Presence of aortocoronary bypass graft; Z88.0 Allergy status to penicillin; Z88.8 Allergy status to other drugs, medicaments and biological substances; Z88.5 Allergy status to narcotic agent; Z79.899 Other long term (current) drug therapy; Z79.82 Long term (current) use of aspirin
CPT/HCPCS: 45385; J2003; J2704; J7120

== ENCOUNTER 2025-03-29 10:04 | Outpatient (CLI) | payer MEDICAID, SELFPAY ==
[2025-03-29 08:33] VITALS: BMI 26.8
--- OUTSIDE RECORDS SUMMARY | 2025-03-29 10:07 | XMS_ITS | Clinical Summary ---
Author Organization Healthcare Address [address] [id number] Care Team Providers Care Wood Room Supervisor Name Role Phone Hua Patricia MD Primary Care Provider [phone] Encounters Date Type Department Care Team Description 03/06/2025 Orders Only [facility] [address] [place] [phone] Sis [...] Description 05/24/2025 9:00 AM EST Office Visit [facility] [address] [place] [phone] Arelis Mendez, CONTROL SYSTEMS TECHNICIAN [address] [address] Health Maintenance Due Date Last [...] 2020 [facility]-Zoster Vaccines (1 of 2) 2020 [id number] Vaccine (1 - season) 2024 [facility]-Hepatitis B Vaccines Completed 999, 09/24/1998, 08/21/1998 [facility]-Influenza Vaccine Completed 02/27/2025 HPV Vaccines (No Doses Required) Completed [facility]-HIB Vaccines Aged Out No longer e [...] patient's age to complete this topic Insurance [facility] MEDICAID Care Teams Wood Room Supervisor Relationship Specialty Start Date End Date Hua Patricia MD [address] [place] [id number] PCP - General 08/22/20
--- OUTSIDE RECORDS SUMMARY | 2025-03-29 10:07 | XMS_ITS | Encounter Summary ---
Author Organization Healthcare Address [address] [place] [address] Care Team Providers Care Studio Grip Name Role Phone Hua Patricia MD Primary Care Provider [phone] Encounter Details Date Type Department Care Team (Late Contact Info) Description 03/06/2025 Orders Only [facility] [address] [place] [phone] Sis Knowles [...] Upcoming Encounters Date Type Department Care Team ([facility] Contact Info) Description 05/24/2025 9:00 AM EST Office Visit [facility] [address] [phone] Arelis Mendez, JAVA WEB ENGINEER [address] [address] Scheduled Orders Name Type Priority [...] unspecified whether stage 3a or 3b CKD ([facility]) Expected: 03/06/2025 (Approximate), Expires: 09/03/2026 Protein, Random, Urine with Creatinine Lab Routine Stage 3 chronic kidney disease, unspecified whether stage 3a or 3b CKD ([facility]) Expected: 03/06/2025 (Approximate), Expires: 09/03/2026 Urinalysis with reflex microscopic (Culture NOT Included) Lab Routine Stage 3 chronic kidney disease, unspecified whether stage 3a or 3b CKD ([facility]) Expected: 03/06/2025 (Approximate), Expires: 09/03/2026 PTH Intact Total Lab Routine Stage 3 chronic kidney disease, unspecified whether stage 3a or 3b CKD ([facility]) Vitamin D insufficiency Expected: 03/06/2025 (Approximate), Expires: 09/03/2026 Vitamin D 25 Hydroxy Lab Routine Stage 3 chronic kidney disease, unspecified whether stage 3a or 3b CKD ([facility]) Vitamin D insufficiency Expected: 03/06/2025 (Approximate), Expires: 09/03/2026 documented as of this encounter Visit Diagnoses Diagnosis Stage 3 chronic kidney disease, unspecified whether stage 3a or 3b CKD ([facility])- Primary Vitamin D insufficiency documented in this encounter Care Teams Studio Grip Relationship Specialty Start Date End Date Hua Patricia MD [address] [place] [address] PCP - General 08/22/20 documented as of this encounter
[2025-03-29 10:29] LABS: Microscopic, Urine URINE MICROSCOPIC (MICROSCOPIC)
[2025-03-29 11:07] LABS: Bilirubin,Urine Negative (Negative); Color,Urine YELLOW (Yellow); Glucose,Urine (UA) 3+ (Negative); Ketones,Urine Negative (Negative); Leukocyte Esterase,Urine Negative (Negative); PH,Urine 6.0 (5.0-8.5); Protein,Urine Negative (Negative); Specific Gravity, Urine 1.025 (1.005-1.030); Urobilinogen,Urine 0.2 EU/dl (0.2)
[2025-03-29 12:06] LABS: Squamous Epithelial Cell,Urine Occasional #/hpf (0-5); WBC,Urine Occasional #/hpf (0-3)
== END 2025-03-29 23:59 | disposition home or self-care (01) ==
LOC: PREOP 10:05
PROVIDERS: PCP Family Medicine; Visit Provider Surgery
DX: Z01.812 Encounter for preprocedural laboratory examination (principal)
CPT/HCPCS: 81001

== ENCOUNTER 2025-04-05 07:39 | Day surgery (SDC) | payer MEDICAID, SELFPAY ==
[2025-03-29 13:22] VITALS: BMI 26.8
[2025-04-05] VITALS (10 sets, daily range): BP systolic 112–153; BP diastolic 67–90; PULSE 71–96; RESP 12–18; TEMP 36.2–36.4; O2SAT 95–99
[2025-04-05] MEDS: 0.9 % SODIUM CHLORIDE 1000ML 1,000 ML 25 ML IV (08:03)
--- NOTE | 2025-04-05 08:37 | P.PNANES_ITS ---
[facility] Disclaimer: The information contained in this section may have been updated after the patient was seen, as this information can be updated by other users. Medical History Left anterior shoulder pain Left-sided chest wall pain Acute exacerbation of chronic heart failure CHF (congestive heart failure) Acute exacerbation of CHF (congestive heart failure) Abdominal ascites Chest pain Lung nodule Weakness of foot Abdominal distension Chronic foot pain Abdominal distention Allergic conjunctivitis URI (upper respiratory infection) Left against medical advice Chronic HFrEF (heart failure with reduced ejection fraction) Abnormal findings on diagnostic imaging of heart and coronary circulation Fatigue Right foot pain Breath shortness Cough Fluid overload Heart failure Volume overload Hypokalemia Fluid overload Medically noncompliant Bilateral edema of lower extremity CKD stage 3a, GFR 45-59 ml/min CAD (coronary artery disease) Acute on chronic HFrEF (heart failure with reduced ejection fraction) Pneumonia Pulmonary infiltrate Hyponatremia Bed bug bite CHF (congestive heart failure) Right atrial thrombus Acute decompensated heart failure Nodule of left lung Severe left ventricular systolic dysfunction (LVSD) Transaminitis RENAY (acute kidney injury) Anasarca LV (left ventricular) mural thrombus Acute hypoxemic respiratory failure Cardiogenic shock Non-STEMI (non-ST elevated myocardial infarction) Acute HFrEF (heart failure with reduced ejection fraction) Pneumonia Pleural effusion, bilateral Vitamin B12 deficiency Allergic rhinitis BPH (benign prostatic hyperplasia) Hyperlipidemia Insomnia Partial tear of right Achilles tendon Surgical History Hx of colonoscopy History of hernia repair Hx of heart artery stent History of back surgery Family History Unknown Family history non-contributory Other No significant family history Social History Smoking Status: Never smoker alcohol intake: never substance use type: former substance user and heroin current occupational status: disabled Travel in the last 8 weeks?: None Have you lived/traveled outside US in past 30 days?: No Contact w/someone who lives/traveled outside US past 30 days?: No Exposure to someone with infectious disease in past 14 days?: No Do you have a fever (greater than 100.4 F or 38 C)?: No Have you tested positive for COVID-19?: No Exposed to someone with COVID-19 in past 14 days?: No Do you have a sore throat?: No Do you have a cough?: No Do you have any weakness?: No Do you have any diarrhea?: No Are you experiencing any unusual bleeding?: No Do you have any muscle aches/pain?: No Do you have any abdominal pain?: No Are you experiencing loss of taste or smell?: No [facility] Anesthesia Checklist Patient Identification Patient Identification: Arm Band Structural Data Admitted From: Home Planned Operative Procedure/s: Open Left Inguinal Hernia Repair Consent for Planned Operative Procedure(s) Verified: Yes Verified Documents: Surgical Consent and History and Physical NPO Status Verified Time NPO: 00:00 Additional verifications Anesthesia Reactions: No Hx Blood Transfusions: No Blood Transfusion Reaction: No Airway Assessment Mallampati Score:: Class II C-Spine Mobility Assessed: Yes TMJ Mobility Assessed: Yes Dentition: Poor Dentition Neurological Assessment Level of Consciousness: Awake, Alert and Appropriate Anesthesia Plan Anesthesia Risk discussed: Yes Anesthesia Plan: Verified ASA Class: III Anesthesia Type: General
--- NOTE | 2025-04-05 09:19 | EXP.OP.NOTE ---
Date of procedure: 04/05/25 Pre-op Diagnosis:: Recurrent left inguinal hernia Post-op Diagnosis:: Same Procedure performed:: Open repair of recurrent left inguinal hernia Surgeon:: Marcell Wood MD LONG TERM ACUTE CARE REGISTERED NURSE:: Jace Miles Anesthesia: LMA Estimated blood loss (mL): 15 Operative findings:: Profound adhesions throughout left groin region/inguinal canal Large firm mass-like lesion underlying inguinal canal consistent with prior mesh with overlying adhesions/scar tissue Unable to safely differentiate inguinal canal region anatomy with certainty Apparent indirect and direct defect along margin of prior mesh placement PerFix plug (x 2) placed PerFix overlay not able to be placed secondary to lack of anatomic differentiation Operative note:: After informed consent was obtained the patient was taken to the operating room and placed in the supine position. General anesthesia was induced and his abdomen and groin/scrotum were prepped and draped in a sterile fashion. After infiltration with local anesthetic an oblique incision was made in the left groin. Dissection was taken through Jovany's fascia to the level of the external aponeurosis. The external aponeurosis was sharply opened to the level of the external ring. Profound soft tissue thickening and scar tissue was immediately encountered. Careful sharp dissection was utilized to transect through the most superficial scar tissue/adhesions and careful blunt dissection then revealed a firm mass-like lesion consistent with prior mesh placement. Along the margin of the mass-like lesion (prior mesh) an apparent direct defect and an apparent indirect defect were noted. An extra-large PerFix plug was placed in the indirect defect. A large PerFix plug was placed in the direct defect. Both plugs were secured with interrupted Ethibond. Lack of anatomic differentiation precluded placement of the PerFix overlay. 0 Ethibond was utilized to reapproximate the overlying musculature/fascial margin. The caudal portion of musculature/scar tissue was then brought into apposition with the cephalad margin of the external aponeurosis with 0 Vicryl in a running manner. Jovany's fascia was closed with 2-0 Vicryl in a running fashion and skin was then closed utilizing the INSORB stapler. Dressings were applied and the patient was transferred to recovery in stable condition. Condition: stable Disposition: PACU Specimens:: None Complications:: No immediate
[2025-04-05] MEDS: CLINDAMYCIN PHOSPHATE/D5W 900 MG/50 ML PIGGYBACK 100 MG IV (09:39)
[2025-04-05] MEDS: LIDOCAINE 1% 20ML MDV 20 ML (10:00)
--- NOTE | 2025-04-05 11:11 | P.PNANES_ITS ---
[facility] Anesthesia Record Part I Anesthesia Record I Intake, IV Amount: 700 Hydration: Adequate Estimated blood loss (mL): 15 Urine output (mL): 200 Blood Products used (#): none Blood Pressure: 134/88 SaO2: 98 Pulse Rate: 75 Airway Patency: Patent Respiratory Rate: 12 Temperature: 97.1 F Patient is:: Drowsy and Stable Stable to PACU at:: 10:55
[2025-04-05 11:16] LABS: Microscopic,Cath URINE MICROSCOPIC (MICROSCOPIC)
[2025-04-05 11:17] LABS: Appearance,Urine/Cath CLEAR (Clear); Bilirubin,Cath Negative (Negative); Blood, Urine/Cath Negative (Negative); Color,Urine/Cath YELLOW (Yellow); Glucose,Urine/Cath (UA) 3+ (Negative); Ketones,Urine/Cath Negative (Negative); Leukocyte Esterase,Cath Negative (Negative); Nitrate,Cath Negative (Negative); PH,Urine/Cath 5.5 (5.0-8.5); Protein,Urine/Cath Negative (Negative); Specific Gravity, Urine/Cath 1.020 (1.005-1.030); Urobilinogen,Cath 0.2 EU/dl (0.2)
[2025-04-05 12:11] LABS: Bacteria,Urine/Cath TRACE /lpf; Squamous Epithelial Ur./Cath Occasional #/hpf (0-5)
--- NOTE | 2025-04-05 12:57 | EXP.ANES.II ---
[facility] Anesthesia Record Part II Anesthesia Record Part II Discharge Time: 11:25 Destination: Surgical Day Care (OP Surgery) PACU nurse assessment reviewed?: Yes Patient Condition:: Good Anesthesia Complications:: None Swallowing reflex intact?: Yes Airway Patency: Patent Cyanosis?: No Blood Pressure: 112/71 SaO2: 97 Respiratory Rate: 16 Pulse Rate: 73 Temperature: 97.1 F Mental Status: Alert & Oriented Pain level:: 3 Nausea and/or vomitting:: None Intake, IV Amount: 0 Hydration: Adequate
== END 2025-04-05 11:51 | disposition home or self-care (01) ==
PROVIDERS: PCP Family Medicine; Visit Provider Surgery
PROC: (CPT 49520; principal; 2025-04-05 09:05)
DX: K40.91 Unilateral inguinal hernia, without obstruction or gangrene, recurrent (principal); K66.0 Peritoneal adhesions (postprocedural) (postinfection); I50.22 Chronic systolic (congestive) heart failure; N18.31 Chronic kidney disease, stage 3a; E78.5 Hyperlipidemia, unspecified; I25.10 Atherosclerotic heart disease of native coronary artery without angina pectoris; N40.0 Benign prostatic hyperplasia without lower urinary tract symptoms; J30.9 Allergic rhinitis, unspecified; Z79.82 Long term (current) use of aspirin; Z79.02 Long term (current) use of antithrombotics/antiplatelets; Z79.51 Long term (current) use of inhaled steroids; Z79.899 Other long term (current) drug therapy; Z88.6 Allergy status to analgesic agent; Z88.5 Allergy status to narcotic agent; Z88.0 Allergy status to penicillin
CPT/HCPCS: 49520; 51702; 81001; C1781; J0736; J1100; J2003; J2250; J2405; J2704; J3010; J7030